=== PATIENT | female | born 1935 | race African-American/Black ===

== ENCOUNTER 2017-12-31 19:42 | Emergency (ER) | payer MEDICARE, OTHER ==
[2017-12-31] MEDS ORDERED: ONDANSETRON PF 4 MG/2 ML VIAL. IV (20:15)
[2017-12-31] MEDS ORDERED: MORPHINE SULFATE 4 MG/ML DISP.SYRIN. IV (20:15)
[2017-12-31] MEDS ORDERED: ACETAMINOPHEN 325 MG TABLET. PO (20:15)
[2017-12-31] MEDS: IOHEXOL 300 MG/ML 100ML VIAL. IV (20:30)
[2017-12-31] MEDS: IPRATRPIUM/ALBUTEROL 0.5/2.5MG 3 ML NEBU. NEB (20:55)
[2017-12-31 20:59] LABS: BILIRUBIN,URINE NEGATIVE (NEG); CLARITY,URINE CLEAR; COLOR,URINE YELLOW; GLUCOSE,URINE NEGATIVE (NEG); NITRITE,URINE NEGATIVE (NEG); PROTEIN,URINE 30 mg/dL (NEG-TRACE)
[2017-12-31 21:15] LABS: SQUAMOUS EPITHELIAL CELL,UR FEW /LPF
[2017-12-31 21:16] LABS: BACTERIA,URINE 0 /HPF (0-FEW); RBC,URINE 0 /HPF (0-2); WBC,URINE 0 /HPF (0-4)
[2017-12-31] MEDS: IV NORMAL SALINE 1000ML BAG 1,000 ML IV (21:42)
[2017-12-31 21:50] LABS: BASO # 0.1 x10^3/uL (0.0-0.2); BASO % 1 % (0-3); EOS % 0 % (0-3); HEMATOCRIT 41.7 % (36.0-47.0); LYMPH # 1.3 x10^3/uL (1.0-4.8); LYMPH % 9 % (24-48); MEAN CORPUSCULAR HEMOGLOBIN 32 pg (25-35); MEAN CORPUSCULAR HGB CONC 34 g/dL (31-37); MEAN CORPUSCULAR VOLUME 94 fL (79-100); MONO # 0.4 x10^3/uL (0.0-1.1); MONO % 3 % (0-9); NEUT # 11.9 x10^3uL (1.8-7.7); NEUT % 87 % (31-73); PLATELET COUNT 320 x10^3/uL (140-400); RED BLOOD COUNT 4.43 x10^6/uL (3.50-5.40); RED CELL DISTRIBUTION WIDTH 14.6 % (11.5-14.5); WHITE BLOOD COUNT 13.7 x10^3/uL (4.0-11.0)
[2017-12-31 21:51] LABS: ADD MAN DIFF? YES
[2017-12-31 22:00] LABS: ANION GAP 13 (6-14); BLOOD UREA NITROGEN 25 mg/dL (7-20); BUN/CREATININE RATIO 18 (6-20); CALCIUM 9.7 mg/dL (8.5-10.1); CARBON DIOXIDE 26 mmol/L (21-32); CHLORIDE 101 mmol/L (98-107); CREATININE 1.4 mg/dL (0.6-1.0); GFR 43.3; GLUCOSE 139 mg/dL (70-99); POTASSIUM 3.6 mmol/L (3.5-5.1); SODIUM 140 mmol/L (136-145)
[2017-12-31 22:06] LABS: ALBUMIN 3.8 g/dL (3.4-5.0); ALK PHOS 113 U/L (46-116); ALT (SGPT) 19 U/L (14-59); AST (SGOT) 21 U/L (15-37); LIPASE 32 U/L (73-393); TOTAL BILIRUBIN 0.4 mg/dL (0.2-1.0); TOTAL PROTEIN 7.8 g/dL (6.4-8.2)
[2017-12-31 22:09] LABS: LACTIC ACID 1.2 mmol/L (0.4-2.0)
[2017-12-31 22:35] LABS: % LYMPHS 12 % (24-48); % MONOS 3 % (0-10); % SEGS 85 % (35-66); PLT ESTIMATE ADEQUATE (ADEQUATE)
[2017-12-31] MEDS: LABETALOL 20 MG/4 ML DISP.SYRIN. IVP (22:54)
== END 2018-01-01 01:27 | disposition home or self-care (01) ==
LOC: ER 01-01 01:27
DX: R10.32 Left lower quadrant pain (principal); R19.7 Diarrhea, unspecified; I10 Essential (primary) hypertension; I73.9 Peripheral vascular disease, unspecified; Z86.2 Personal history of diseases of the blood and blood-forming organs and certain disorders involving the immune mechanism; Z88.2 Allergy status to sulfonamides
CPT/HCPCS: 36415; 74177; 76830; 76856; 80053; 81001; 83605; 83690; 85007; 85025; 94640; 96361; 96374; 99285-25; J3490; J7030; J7620; Q9967

== ENCOUNTER 2019-02-22 20:00 | Inpatient (IN) | payer MEDICARE, OTHER ==
[~2019-02-22] VITALS: Ht 160 cm; Wt 83.1 kg
[~2019-02-22 20:00] MED LIST: ACET500T68 PO; AMLO10TA8 PO; ASPI-482 PO; AZIT250T6 PO; CHOL5000 PO; FELO10TA PO; HYDR-2145 PO; HYDR-3164 PO; LOSA100T2 PO; MOME17SP NS; OMEG1CAP6 PO; POLY17PO29 PO; PRAV40TA2 PO; SOLI5TAB2 PO; TEMA30CA PO; TRAM50TA PO; fiber
[2019-02-22] MEDS ORDERED: ACETAMINOPHEN 325 MG TABLET. PO ONE (20:45)
[2019-02-22] MEDS ORDERED: IV NORMAL SALINE 1000ML BAG 1,000 ML IV ONE ×2 (20:45→23:30)
[2019-02-22] MEDS ORDERED: PIP/TAZO PER PHARMACY MC PRN (20:45)
--- NOTE | 2019-02-22 20:48 | PHYS DOC ---
Past Medical History Past Medical History: Arthritis, Hypertension, Other Additional Past Medical Histor: PVD,BLOOD CLOTS,BOWEL OBSTRUCTION Past Surgical History: Other Additional Past Surgical Histo: FEM POP, LT CARTIOD, ARTERIAL VASC. SURGERY Alcohol Use: None Drug Use: None Adult General Chief Complaint Chief Complaint: GENERALIZED BODY ACHES HPI HPI Patient is a 84 year old F who presents with shakes. She states that they started around 3pm this afternoon. She denies any diarrhea or vomiting but does report nausea. She denies any abdominal pain, chest pain, shortness of breath, or changes to urination. DENIES ANY CHEST PAIN. Per ambulance the temperature is 102.[address] to the emergency room. Family said they were shaking chills look like she was having a fever. Review of Systems Review of Systems Constitutional: Reports fever or chills [] Eyes: Denies change in visual acuity, redness, or eye pain [] HENT: Denies nasal congestion or sore throat [] Respiratory: Denies cough or shortness of breath [] Cardiovascular: No additional information not addressed in HPI [] GI: Reports abdominal pain, nausea, vomiting, bloody stools or diarrhea [] : Denies dysuria or hematuria [] Musculoskeletal: Denies back pain or joint pain [] Integument: Denies rash or skin lesions [] Neurologic: Denies headache, focal weakness or sensory changes [] Endocrine: Denies polyuria or polydipsia [] All other systems were reviewed and found to be within normal limits, except as documented in this note. Current Medications Current Medications Current Medications Medications (Trade) Dose Ordered Sig/[facility] Start Time Stop Time Status Last Admin Dose Admin Acetaminophen (Tylenol) 650 mg 1X ONCE 02/22/19 20:45 02/22/19 20:52 DC 02/22/19 21:22 650 MG Info (CONTRAST GIVEN -- Rx MONITORING) 1 each PRN DAILY PRN 02/23/19 00:15 02/25/19 00:14 Iohexol (Omnipaque 300 Mg/ml) 60 ml 1X ONCE 02/23/19 00:15 02/23/19 00:16 DC 02/23/19 00:02 60 ML Piperacillin Sod/ Tazobactam Sod (Zosyn Per Pharmacy) 1 each PRN DAILY PRN 02/22/19 20:45 Piperacillin Sod/ Tazobactam Sod 3.375 gm/Sodium Chloride 50 ml @ 100 mls/hr ONCE ONCE 02/22/19 21:00 02/22/19 21:29 DC 02/22/19 21:23 100 MLS/HR Sodium Chloride 1,000 ml @ 75 mls/hr [id number] 02/22/19 23:30 02/23/19 23:29 02/23/19 03:03 75 MLS/HR Allergies Allergies Allergies Coded Allergies Type Severity Reaction Last Updated Verified Sulfa (Sulfonamide Antibiotics) Allergy Severe TONGUE SWELLING 04/07/14 Yes Physical Exam Physical Exam Constitutional: Well developed, well nourished, mildly ill-appearing HENT: Normocephalic, atraumatic, bilateral external ears normal, oropharynx dry no oral exudates, nose normal. [] Eyes: PERRLA, EOMI, conjunctiva normal, no discharge. [] Neck: Normal range of motion, no tenderness, supple, no stridor. [] Cardiovascular:Heart rate regular rhythm, no murmur [] Lungs & Thorax: Bilateral breath sounds clear to auscultation [] Abdomen: Bowel sounds normal, soft, no tenderness, no masses, no pulsatile masses. [] Skin: Warm, dry, no erythema, no rash. [] Back: No tenderness, no CVA tenderness. [] Extremities: No tenderness, no cyanosis, no clubbing, ROM intact, no edema. [] Neurologic: Alert and oriented X 3, normal motor function, normal sensory function, no focal deficits noted. [] Psychologic: Affect normal, judgement normal, mood normal. [] Current Patient Data Vital Signs Vital Signs Date Time Temp Pulse Resp B/P (MAP) Pulse Ox O2 Delivery O2 Flow Rate FiO2 02/22/19 23:11 64 16 94/40 (58) 99 Room Air 02/22/19 20:00 99.5 99.5 Lab Values Laboratory Tests Test 02/22/19 21:10 02/22/19 22:00 White Blood Count 13.0 x10^3/uL (4.0-11.0) H Red Blood Count 3.96 x10^6/uL (3.50-5.40) Hemoglobin 12.3 g/dL (12.0-15.5) Hematocrit 37.6 % (36.0-47.0) Mean Corpuscular Volume 95 fL (79-100) Mean Corpuscular Hemoglobin 31 pg (25-35) Mean Corpuscular Hemoglobin Concent 33 g/dL (31-37) Red Cell Distribution Width 13.8 % (11.5-14.5) Platelet Count 294 x10^3/uL (140-400) Neutrophils (%) (Auto) 89 % (31-73) H Lymphocytes (%) (Auto) 4 % (24-48) L Monocytes (%) (Auto) 6 % (0-9) Eosinophils (%) (Auto) 0 % (0-3) Basophils (%) (Auto) 0 % (0-3) Neutrophils # (Auto) 11.6 x10^3uL (1.8-7.7) H Lymphocytes # (Auto) 0.6 x10^3/uL (1.0-4.8) L Monocytes # (Auto) 0.8 x10^3/uL (0.0-1.1) Eosinophils # (Auto) 0.0 x10^3/uL (0.0-0.7) Basophils # (Auto) 0.0 x10^3/uL (0.0-0.2) Segmented Neutrophils % 88 % (35-66) H Band Neutrophils % 3 % (0-9) Lymphocytes % 5 % (24-48) L Monocytes % 4 % (0-10) Platelet Estimate Adequate (ADEQUATE) Prothrombin Time 12.6 SEC (11.7-14.0) Prothrombin Time INR 1.0 (0.8-1.1) Sodium Level 141 mmol/L (136-145) Potassium Level 4.0 mmol/L (3.5-5.1) Chloride Level 102 mmol/L (98-107) Carbon Dioxide Level 29 mmol/L (21-32) Anion Gap 10 (6-14) Blood Urea Nitrogen 27 mg/dL (7-20) H Creatinine 1.3 mg/dL (0.6-1.0) H Estimated GFR (Cockcroft-Gault) 47.0 BUN/Creatinine Ratio 21 (6-20) H Glucose Level 138 mg/dL (70-99) H Lactic Acid Level 1.8 mmol/L (0.4-2.0) Calcium Level 10.1 mg/dL (8.5-10.1) Total Bilirubin 0.4 mg/dL (0.2-1.0) Aspartate Amino Transferase (AST) 17 U/L (15-37) Alanine Aminotransferase (ALT) 17 U/L (14-59) Alkaline Phosphatase 115 U/L (46-116) Troponin I Quantitative 0.084 ng/mL (0.000-0.055) DP-Cfe-I-Type Natriuretic Peptide 2147 pg/mL (0-449) H Total Protein 7.0 g/dL (6.4-8.2) Albumin 3.7 g/dL (3.4-5.0) Albumin/Globulin Ratio 1.1 (1.0-1.7) Lipase 39 U/L (73-393) L Procalcitonin 2.96 ng/mL (0.00-0.10) H Urine Collection Type U cath Urine Color Yellow Urine Clarity Clear Urine pH 5.5 Urine Specific [place] 1.010 Urine Protein 30 mg/dL (NEG-TRACE) Urine Glucose (UA) Negative mg/dL (NEG) Urine Ketones (Stick) Negative mg/dL (NEG) Urine Blood Small (NEG) Urine Nitrite Negative (NEG) Urine Bilirubin Negative (NEG) Urine Urobilinogen Dipstick 0.2 mg/dL (0.2 mg/dL) Urine Leukocyte Esterase Small (NEG) Urine RBC 3-5 /HPF (0-2) Urine WBC 11-20 /HPF (0-4) Urine Squamous Epithelial Cells Few /LPF Urine Bacteria Many /HPF (0-FEW) Laboratory Tests 02/22/19 21:10 Laboratory Tests 02/22/19 21:10 EKG EKG []EKG does show a normal sinus rhythm there is a right bundle branch block pattern overall similar to EKG from March or 2018 there was some sort of borderline ST elevation in lead 3 and aVF however it was less than 1 mm did not meet criteria for STEMI. Radiology/Procedures Radiology/Procedures [] Impressions: CT ABD PELV W/ IV CONTRST ONLY CT SCAN OF THE ABDOMEN AND PELVIS WITH IV CONTRAST. History: Fever and abdominal pain Comparison:None. Procedure: Contiguous axial images of the abdomen and pelvis were performed after the administration of 75 cc of Isovue 370 IV contrast and oral contrast. CT Abdomen with contrast: Findings: There is a 2.9 cm suprarenal abdominal aortic aneurysm with calcification the wall and there is an aortobiiliac bypass which is patent. The colon is distended with air and stool. Liver: Unremarkable Spleen: Unremarkable Pancreas: Unremarkable Adrenal Glands: Unremarkable Kidneys: Unremarkable There is no mass or lymphadenopathy. There is no free air. There is no free fluid. CT Pelvis with Contrast: Findings: The urinary bladder appears normal. There is no free fluid. There is no lymphadenopathy. There are exophytic fibroids arising posteriorly from the uterus. The appendix is normal. Impression: Distention the colon with air and stool suggests a mild colonic ileus. RS Compliance Statement: One or more of the following individualized dose reduction techniques were utilized for this examination: 1. Automated exposure control 2. Adjustment of the mA and/or kV according to patient size 3. Use of iterative reconstruction technique Electronically signed by: Abel Hardin III, MD (02/23/2019 12:22 AM) [place] [id number] DICTATED and SIGNED BY: ABEL HARDIN III, MD DATE: 02/23/19 0022. EXAM: Chest, single view. HISTORY: Fever. COMPARISON: 02/01/2018. FINDINGS: A frontal view of the chest is obtained. There is no infiltrate, pleural effusion or pneumothorax. The heart is normal in size. IMPRESSION: No acute pulmonary finding. Electronically signed by: Baylee Church MD (02/22/2019 9:34 PM) [facility] DICTATED and SIGNED BY: BAYLEE CHURCH MD DATE: 02/22/192133 Course & Med Decision Making Course & Med Decision Making Pertinent Labs and Imaging studies reviewed. (See chart for details) 84 show female was presenting with chief complaint of shaking chills temp 102.5 RIGORS BY HISTORY U/A SHOWS UTI. Patient some mild nausea no abdominal tenderness we did a CT scan did show possibly a mild ileus but otherwise no acute surgical pathology. There were some borderline EKG changes and a small bump in the troponin but no chest pain and fever of 102 by the paramedics elevated pro calcitonin makes sepsis the much more likely etiology of her clinical picture Admitted to the service of Dr. valadez discussed case at 11:50 PM prior to the below change in clinical situation. PT INITIALLY BP WAS OKAY 133 RANGE. It did drop down into the 70s we gave 2 L fluid bolus total 30 mL per kilo was ordered it was still low after nearly 2 L so I opted to place a central line. After the central line was placed blood pressure actually did come back up I ordered vasopressors as needed and we transfer the patient to the intensive care unit. Patient really did not want a She was scared by that it did not appear that she would be compliant with that I was worried about the risks associated with that family said that she had tolerated a groin line in the past. Indication: Vascular access Consent: The patient AND FAMILY provided consent for this procedure. Procedure: The patient was positioned appropriately and the skin over the [RIGHT FEMORAL VEIN] was prepped and draped in a sterile fashion. Local anesthesia was used. Ultrasound guidance utilized. A large bore needle was used to identify the vein. A guide wire was then inserted into the vein through the needle. A triple lumen catheter was then inserted into the vessel over the guide wire using the Seldinger technique. All ports showed good, free flowing blood return and were flushed with saline solution. The catheter was then securely fastened to the skin with sutures and covered with a sterile dressing. The patient tolerated the procedure well. Complications: none. Critical care time was 40 minutes exclusive of procedures. Dragon Disclaimer Dragon Disclaimer This electronic medical record was generated, in whole or in part, using a voice recognition dictation system. Departure Departure Impression: Primary Impression: Septic shock Disposition: ADMITTED INPATIENT Admitting Physician: Mary Valadez Condition: CRITICAL Referrals: JEN COOK MD (PCP) Date and Time of Reassessment Date: February 23, 2019 Time: 01:00 Fluid Challenge Is the fluid challenge complet: Yes Blood Culture TIme: 20:49 Time Antibiotics Given: 21:00 Vital Signs Vital Signs: Vital Signs Date Time Temp Pulse Resp B/P (MAP) Pulse Ox O2 Delivery O2 Flow Rate FiO2 02/22/19 23:11 64 16 94/40 (58) 99 Room Air 02/22/19 20:00 99.5 99.5 Temperature Source: Oral Respirations Respiratory Effort: Normal, Non-Labored Respiratory Pattern: Normal Cardiovascular Pulse Rhythm: Regular Heart: Nml rate, reg. rhythm Lung Sounds Breath Sounds: Clear Capillary Refil Capillary Refill: Rt Hand < 3 seconds Peripheral Pulse Pulse Location: Radial Pulse Strength: Weak (1+) Pulse Assessment Method: Palpation Integumentary Skin: Warm, Dry Skin Moisture: Dry (I reevaluated the patient she was near the end of her fluid bolus her blood pressure did drop this was a change in condition I ordered another 500 bolus and placed a central line with when necessary vasopressors patient transferred to the intensive care unit) RANGEL HARRISON MD February 22, 2019 20:48
[2019-02-22] MEDS ORDERED: PIPERACILLIN/TAZOBACTAM 3.375 GM in IV NORMAL SALINE 50ML 50 ML IV ONE (21:00)
[2019-02-22 21:20] LABS: BASO % 0 % (0-3); EOS % 0 % (0-3); HEMATOCRIT 37.6 % (36.0-47.0); HEMOGLOBIN 12.3 g/dL (12.0-15.5); LYMPH # 0.6 x10^3/uL (1.0-4.8); LYMPH % 4 % (24-48); MEAN CORPUSCULAR HEMOGLOBIN 31 pg (25-35); MEAN CORPUSCULAR HGB CONC 33 g/dL (31-37); MEAN CORPUSCULAR VOLUME 95 fL (79-100); MONO # 0.8 x10^3/uL (0.0-1.1); MONO % 6 % (0-9); NEUT # 11.6 x10^3uL (1.8-7.7); NEUT % 89 % (31-73); PLATELET COUNT 294 x10^3/uL (140-400); RED BLOOD COUNT 3.96 x10^6/uL (3.50-5.40); RED CELL DISTRIBUTION WIDTH 13.8 % (11.5-14.5)
[2019-02-22 21:29] LABS: PROTHROMBIN TIME PATIENT 12.6 SEC (11.7-14.0)
[2019-02-22 21:33] LABS: CALCIUM 10.1 mg/dL (8.5-10.1); CREATININE 1.3 mg/dL (0.6-1.0)
--- NOTE | 2019-02-22 21:37 | RAD ---
EXAM: Chest, single view. HISTORY: Fever. COMPARISON: 02/01/2018. FINDINGS: A frontal view of the chest is obtained. There is no infiltrate, pleural effusion or pneumothorax. The heart is normal in size. IMPRESSION: No acute pulmonary finding. Electronically signed by: Baylee Mccain MD (02/22/2019 9:34 PM) [facility]
[2019-02-22 21:48] LABS: ALBUMIN 3.7 g/dL (3.4-5.0); ALBUMIN/GLOBULIN RATIO 1.1 (1.0-1.7); TOTAL BILIRUBIN 0.4 mg/dL (0.2-1.0)
[2019-02-22 22:05] LABS: BILIRUBIN,URINE NEGATIVE (NEG); CLARITY,URINE CLEAR; COLOR,URINE YELLOW; NITRITE,URINE NEGATIVE (NEG); PH,URINE 5.5; PROTEIN,URINE 30 mg/dL (NEG-TRACE); UROBILINOGEN,URINE 0.2 mg/dL (0.2 mg/dL)
[2019-02-22 22:15] LABS: BACTERIA,URINE MANY /HPF (0-FEW); SQUAMOUS EPITHELIAL CELL,UR FEW /LPF
[2019-02-22 22:20] LABS: % BANDS 3 % (0-9); % LYMPHS 5 % (24-48); % MONOS 4 % (0-10); % SEGS 88 % (35-66); PLT ESTIMATE ADEQUATE (ADEQUATE)
[2019-02-23] VITALS (35 sets, daily range): BP systolic 53–154; BP diastolic 36–96
[2019-02-23] MEDS ORDERED: IOHEXOL 300 MG/ML 100ML VIAL. IV ONE (00:15)
[2019-02-23] MEDS ORDERED: CONTRAST GIVEN. MC PRN (00:15)
--- NOTE | 2019-02-23 00:25 | RAD ---
CT SCAN OF THE ABDOMEN AND PELVIS WITH IV CONTRAST. History: Fever and abdominal pain Comparison:None. Procedure: Contiguous axial images of the abdomen and pelvis were performed after the administration of 75 cc of Isovue 370 IV contrast and oral contrast. CT Abdomen with contrast: Findings: There is a 2.9 cm suprarenal abdominal aortic aneurysm with calcification the wall and there is an aortobiiliac bypass which is patent. The colon is distended with air and stool. Liver: Unremarkable Spleen: Unremarkable Pancreas: Unremarkable Adrenal Glands: Unremarkable Kidneys: Unremarkable There is no mass or lymphadenopathy. There is no free air. There is no free fluid. CT Pelvis with Contrast: Findings: The urinary bladder appears normal. There is no free fluid. There is no lymphadenopathy. There are exophytic fibroids arising posteriorly from the uterus. The appendix is normal. Impression: Distention the colon with air and stool suggests a mild colonic ileus. RS Compliance Statement: One or more of the following individualized dose reduction techniques were utilized for this examination: 1. Automated exposure control 2. Adjustment of the mA and/or kV according to patient size 3. Use of iterative reconstruction technique Electronically signed by: Qasim Hollins III, MD (02/23/2019 12:22 AM) [facility]
[2019-02-23] MEDS ORDERED: IV NORMAL SALINE 1000ML BAG 1,000 ML IV ONE (01:00)
[2019-02-23] MEDS ORDERED: NOREPINEPHRIN 8MG/250ML PREMIX 250 ML IV ONE (02:00)
[2019-02-23] MEDS ORDERED: IV NORMAL SALINE 500ML BAG 500 ML IV ONE ×3 (02:00→07:45)
--- NOTE | 2019-02-23 02:30 | NUR ---
pt admitted to room 110 from ED at this time. VSS on 2L/NC, afebrile. daughter at bedside, able to help get admission requirements completed. daughter and pt oriented to room, call light, unit routines and plan of care. both verbalize understanding. call light in reach, will continue to closely monitor.
[2019-02-23] MEDS: IV NORMAL SALINE 1000ML BAG 1,000 ML IV SCH ×2 (03:03→07:38)
[2019-02-23] MEDS: ONDANSETRON PF 4 MG/2 ML VIAL. IV PRN (03:17)
[2019-02-23] MEDS ORDERED: IOHEXOL 300 MG/ML 100ML VIAL. ONE (04:24)
[2019-02-23 05:43] LABS: BASO # 0.1 x10^3/uL (0.0-0.2); BASO % 1 % (0-3); EOS % 0 % (0-3); HEMATOCRIT 31.6 % (36.0-47.0); HEMOGLOBIN 10.3 g/dL (12.0-15.5); LYMPH # 1.9 x10^3/uL (1.0-4.8); LYMPH % 16 % (24-48); MEAN CORPUSCULAR HEMOGLOBIN 32 pg (25-35); MEAN CORPUSCULAR HGB CONC 33 g/dL (31-37); MEAN CORPUSCULAR VOLUME 98 fL (79-100); MONO # 1.2 x10^3/uL (0.0-1.1); MONO % 10 % (0-9); NEUT # 9.1 x10^3uL (1.8-7.7); NEUT % 74 % (31-73); PLATELET COUNT 221 x10^3/uL (140-400); RED BLOOD COUNT 3.23 x10^6/uL (3.50-5.40); RED CELL DISTRIBUTION WIDTH 14.3 % (11.5-14.5); WHITE BLOOD COUNT 12.3 x10^3/uL (4.0-11.0)
[2019-02-23] MEDS: PIPERACILLIN/TAZOBACTAM 2.25 GM in IV NORMAL SALINE 50ML 50 ML IV SCH ×2 (06:11→12:26)
[2019-02-23] MEDS: NOREPINEPHRIN 8MG/250ML PREMIX 250 ML IV PRN ×2 (07:38→18:05)
--- NOTE | 2019-02-23 08:18 | PDOC1 ---
History and Physical Date of Admission Date of Admission DATE: 02/23/19 TIME: 08:10 Identification/Chief Complaint Chief Complaint Shaking History of Present Illness History of Present Illness Ms Soares is an 83 year old female w/ PMHx HTN, HLD, COPD, PAD s/p fem pop bypa ss, SBO, ?DVT, uterine fibroids, TIA with mild cognitive impairment, OA, diverticulosis, AAA who presents per EMS from home with "the shakes" and abdominal pain. She states that they started around 3pm this afternoon. Patient complains of epigastric pain that she rates a 5 out of 10 and does radiate to her back and LLQ, though has improved by my eval in ICU She has had 2 days witho ut BM, ate a salad and took Pepto-Bismol and vomited a short while after this. She did have dark BM that were loose yesterday evening as well. She denies any chronic GI issues other than occasional constipation. Denies hematemesis, hematochezia, and melena. Has lost weight since her , she thinks due to eating less. Denies GERD and dysphagia. Takes ASA and some sort of Rx pain med (?Tramadol) at home. Does not recall previous EGD or colonoscopy, also denies GB, liver, and pancreas history. H/o SBO. Had WBC 13K and HR 91 on initial evaluation. Became hypotensive in ED, had right groin CVC placed and had multiple fluid bolus. Started on empiric zosyn. Procalcitonin elevated > 2. Troponin also elevated at 3 She denies any diarrhea or vomiting but does report nausea. She denies shortness of breath, or changes to urination. DENIES ANY CHEST PAIN. Per EMS has fever 102.5. Family said they were shaking chills look like she was having a fever. She also c/o headache on further ROS. Past Medical History Cardiovascular: HTN, Hyperlipidemia, Other Pulmonary: COPD CENTRAL NERVOUS SYSTEM: TIA Musculoskeletal: Osteoarthritis Renal/: Urinary Incontinence Past Surgical History Past Surgical History: Other Family History Family History: Heart Disease Social History ALCOHOL: none Drugs: None Current Problem List Problem List Problems Medical Problems: (1) Septic shock Status: Acute Current Medications Current Medications Current Medications Sodium Chloride 1,000 ml @ 1,000 mls/hr 1X ONCE IV Last administered on 02/22/19at 21:23; Start 02/22/19 at 20:45; Stop 02/22/19 at 21:44; Status DC Acetaminophen (Tylenol) 650 mg 1X ONCE PO Last administered on 02/22/19at 21:22; Start 02/22/19 at 20:45; Stop 02/22/19 at 20:52; Status DC Piperacillin Sod/ Tazobactam Sod (Zosyn Per Pharmacy) 1 each PRN DAILY PRN MC SEE COMMENTS; Start 02/22/19 at 20:45 Piperacillin Sod/ Tazobactam Sod 3.375 gm/Sodium Chloride 50 ml @ 100 mls/hr ONCE ONCE IV Last administered on 02/22/19at 21:23; Start 02/22/19 at 21:00; Stop 02/22/19 at 21:29; Status DC Sodium Chloride 1,000 ml @ 1,000 mls/hr 1X ONCE IV Last administered on 02/22/19at 23:44; Start 02/22/19 at 23:30; Stop 02/23/19 at 00:29; Status DC Sodium Chloride 1,000 ml @ 75 mls/hr [id number] IV Last administered on 02/23/19at 07:38; Start 02/22/19 at 23:30; Stop 02/23/19 at 23:29 Iohexol (Omnipaque 300 Mg/ml) 60 ml 1X ONCE IV Last administered on 02/23/19at 00:02; Start 02/23/19 at 00:15; Stop 02/23/19 at 00:16; Status DC Info (CONTRAST GIVEN -- Rx MONITORING) 1 each PRN DAILY PRN MC SEE COMMENTS; Start 02/23/19 at 00:15; Stop 02/25/19 at 00:14 Piperacillin Sod/ Tazobactam Sod 2.25 gm/Sodium Chloride 50 ml @ 100 mls/hr Q6HRS IV Last administered on 02/23/19at 06:11; Start 02/23/19 at 06:00 Sodium Chloride 1,000 ml @ 1,000 mls/hr 1X ONCE IV ; Start 02/23/19 at 01:00; Stop 02/23/19 at 01:45; Status DC Sodium Chloride 500 ml @ 500 mls/hr 1X ONCE IV Last administered on 02/23/19at 02:07; Start 02/23/19 at 02:00; Stop 02/23/19 at 02:59; Status DC Norepinephrine Bitartrate 250 ml @ 0 mls/hr 1X ONCE IV ; Start 02/23/19 at 02:00; Stop 02/23/19 at 02:01; Status DC Sodium Chloride 500 ml @ 500 mls/hr 1X ONCE IV Last administered on 02/23/19at 06:10; Start 02/23/19 at 02:00; Stop 02/23/19 at 02:59; Status DC Norepinephrine Bitartrate 250 ml @ 1.875 mls/ hr CONT PRN IV SEE I/O RECORD Last administered on 02/23/19at 07:38; Start 02/23/19 at 03:15 Ondansetron HCl (Zofran) 4 mg PRN Q6HRS PRN IV NAUSEA/VOMITING Last administered on 02/23/19at 03:17; Start 02/23/19 at 03:15 Iohexol (Omnipaque 300 Mg/ml) 100 ml STK-MED ONCE .ROUTE ; Start 02/23/19 at 04:24; Stop 02/23/19 at 04:25; Status DC Sodium Chloride 500 ml @ 500 mls/hr 1X ONCE IV ; Start 02/23/19 at 07:45; Stop 02/23/19 at 08:44 Active Scripts Active Reported Amlodipine Besylate 10 Mg Tablet 10 Mg PO DAILY Tramadol Hcl 50 Mg Tablet 50 Mg PO Q4H PRN Fish Oil 1,000 Mg Capsule ([place]-3 Fatty Acids/Fish Oil) 1 Each Capsule 1 Each PO Vitamin D3 (Cholecalciferol (Vitamin D3)) 5,000 Unit Capsule 5,000 Unit PO Acetaminophen 500 Mg Tablet 500 Mg PO Aspir 81 (Aspirin) 81 Mg Tablet.dr 81 Mg PO Hydrochlorothiazide Tablet (Hydrochlorothiazide) 25 Mg Tablet 25 Mg PO DAILY Pravastatin Sodium 40 Mg Tablet 40 Mg PO DAILY Miralax (Polyethylene Glycol 3350) 17 Gm Powd.pack 1 Pkt PO DAILY [fiber] Temazepam 30 Mg Capsule 30 Mg PO HS PRN Cozaar (Losartan Potassium) 100 Mg Tablet 100 Mg PO DAILY Allergies Allergies: Coded Allergies: Sulfa (Sulfonamide Antibiotics) (Verified Allergy, Severe, TONGUE SWELLING, 04/07/14) ROS General: YES: Chills, Fatigue, Malaise, Appetite PSYCHOLOGICAL ROS: No: Anxiety, Behavioral Disorder, Concentration difficultie, Decreased libido, Depression, Disorientation, Hallucinations, Hostility, Irritablity, Memory difficulties, Mood Swings, Obsessive thoughts, Physical abuse, Sexual abuse, Sleep disturbances, Suicidal ideation, Other Eyes: Yes Uses glasses; No Blurry vision, No Decreased vision, No Double vision, No Dry eyes, No Excessive tearing, No Eye Pain, No Itchy Eyes, No Loss of vision, No Photophobia, No Scotomata, No Uses contacts, No Other HEENT: YES: Heacaches; No: Visual Changes, Hearing change, Nasal congestion, Nasal discharge, Oral lesions, Sinus pain, Sore Throat, Epistaxis, Sneezing, Snoring, Tinnitus, Vertigo, Vocal changes, Other ALLERGY AND IMMUNOLOGY: No: Hives, Insect Bite Sensitivity, Itchy/Watery Eyes, Nasal Congestion, Post Nasal Drip, Seasonal Allergies, Other Hematological and Lymphatic: No: Bleeding Problems, Blood Clots, Blood Trans fusions, Brusing, Night Sweats, Pallor, Swollen Lymph Nodes, Other ENDOCRINE: No: Breast Changes, Galactorrhea, Hair Pattern Changes, Hot Flashes, Malaise/lethargy, Mood Swings, Palpitations, Polydipsia/polyuria, Skin Changes, Temperature Intolerance, Unexpected Weight Changes, Other Breast: No New/Changing Breast Lumps, No Nipple changes, No Nipple discharge, No Other Respiratory: YES: Shortness of breath; No: Cough, Hemoptysis, Orthopnea, Pleuritic Pain, SOB with excertion, Sputum Changes, Stridor, Tachypnea, Wheezing, Other Cardiovascular: No Chest Pain, No Palpitations, No Orthopnea, No Paroxysmal Noc. Dyspnea, No Edema, No Lt Headedness, No Other Gastrointestinal: Yes Nausea, Yes Vomiting, Yes Abdominal Pain, Yes Constipation; No Diarrhea, No Melena, No Hematochezia, No Other Genitourinary: No Dysuria, No Frequency, No Incontinence, No Hematuria, No Retention, No Discharge, No Urgency, No Pain, No Flank Pain, No Other, No , No , No , No , No , No , No Musculoskeletal: No Gait Disturbance, No Joint Pain, No Joint Stiffness, No Joint Swelling, No Muscle Pain, No Muscular Weakness, No Pain In:, No Swelling In:, No Other Neurological: No Behavorial Changes, No Bowel/Bladder ControlChng, No Confusion, No Dizziness, No Gait Disturbance, No Headaches, No Impaired Coord/balance, No Memory Loss, No Numbness/Tingling, No Seizures, No Speech Problems, No Tremors, No Visual Changes, No Weakness, No Other Skin: No Dry Skin, No Eczema, No Hair Changes, No Lumps, No Mole Changes, No Mottling, No Nail Changes, No Pruritus, No Rash, No Skin Lesion Changes, No Other, No Acne Physical Exam General: Alert, Cooperative, mild distress HEENT: Atraumatic, PERRLA, EOMI, Mucous membr. moist/pink, Other (Periorbital swelling) Lungs: Clear to auscultation, Normal air movement Heart: S1S2, RRR, no gallops Abdomen: Normal bowel sounds, Soft, No tenderness, No hepatosplenomegaly, No masses Rectal Exam: not examined Extremities: No clubbing, No cyanosis, No edema, No tenderness/swelling, Other (Decreased peripheral pulses in RUE, LUE and LLE, good pulses RLE) Skin: No rashes, No breakdown, No significant lesion Neuro: Normal gait, Normal speech, Strength at 5/5 X4 ext, Normal tone, Sensation intact, Cranial nerves 3-12 NL, Reflexes 2+ Psych/Mental Status: Mood NL Vitals Vitals Vital Signs Date Time Temp Pulse Resp B/P (MAP) Pulse Ox O2 Delivery O2 Flow Rate FiO2 02/23/19 06:00 72 16 97/50 (66) 100 Nasal Cannula 2.0 02/23/19 02:30 98.1 98.1 Labs Labs Laboratory Tests Test 02/22/19 21:10 02/22/19 22:00 02/23/19 05:00 02/23/19 05:30 White Blood Count 13.0 x10^3/uL (4.0-11.0) 12.3 x10^3/uL (4.0-11.0) Red Blood Count 3.96 x10^6/uL (3.50-5.40) 3.23 x10^6/uL (3.50-5.40) Hemoglobin 12.3 g/dL (12.0-15.5) 10.3 g/dL (12.0-15.5) Hematocrit 37.6 % (36.0-47.0) 31.6 % (36.0-47.0) Mean Corpuscular Volume 95 fL (79-100) 98 fL (79-100) Mean Corpuscular Hemoglobin 31 pg (25-35) 32 pg (25-35) Mean Corpuscular Hemoglobin Concent 33 g/dL (31-37) 33 g/dL (31-37) Red Cell Distribution Width 13.8 % (11.5-14.5) 14.3 % (11.5-14.5) Platelet Count 294 x10^3/uL (140-400) 221 x10^3/uL (140-400) Neutrophils (%) (Auto) 89 % (31-73) 74 % (31-73) Lymphocytes (%) (Auto) 4 % (24-48) 16 % (24-48) Monocytes (%) (Auto) 6 % (0-9) 10 % (0-9) Eosinophils (%) (Auto) 0 % (0-3) 0 % (0-3) Basophils (%) (Auto) 0 % (0-3) 1 % (0-3) Neutrophils # (Auto) 11.6 x10^3uL (1.8-7.7) 9.1 x10^3uL (1.8-7.7) Lymphocytes # (Auto) 0.6 x10^3/uL (1.0-4.8) 1.9 x10^3/uL (1.0-4.8) Monocytes # (Auto) 0.8 x10^3/uL (0.0-1.1) 1.2 x10^3/uL (0.0-1.1) Eosinophils # (Auto) 0.0 x10^3/uL (0.0-0.7) 0.0 x10^3/uL (0.0-0.7) Basophils # (Auto) 0.0 x10^3/uL (0.0-0.2) 0.1 x10^3/uL (0.0-0.2) Segmented Neutrophils % 88 % (35-66) Band Neutrophils % 3 % (0-9) Lymphocytes % 5 % (24-48) Monocytes % 4 % (0-10) Platelet Estimate Adequate (ADEQUATE) Prothrombin Time 12.6 SEC (11.7-14.0) Prothromb Time International Ratio 1.0 (0.8-1.1) Sodium Level 141 mmol/L (136-145) Potassium Level 4.0 mmol/L (3.5-5.1) Chloride Level 102 mmol/L (98-107) Carbon Dioxide Level 29 mmol/L (21-32) Anion Gap 10 (6-14) Blood Urea Nitrogen 27 mg/dL (7-20) Creatinine 1.3 mg/dL (0.6-1.0) Estimated GFR (Cockcroft-Gault) 47.0 BUN/Creatinine Ratio 21 (6-20) Glucose Level 138 mg/dL (70-99) Lactic Acid Level 1.8 mmol/L (0.4-2.0) 1.2 mmol/L (0.4-2.0) Calcium Level 10.1 mg/dL (8.5-10.1) Total Bilirubin 0.4 mg/dL (0.2-1.0) Aspartate Amino Transf (AST/SGOT) 17 U/L (15-37) Alanine Aminotransferase (ALT/SGPT) 17 U/L (14-59) Alkaline Phosphatase 115 U/L (46-116) Troponin I Quantitative 0.084 ng/mL (0.000-0.055) 3.186 ng/mL (0.000-0.055) YO-Qhm-I-Type Natriuretic Peptide 2147 pg/mL (0-449) Total Protein 7.0 g/dL (6.4-8.2) Albumin 3.7 g/dL (3.4-5.0) Albumin/Globulin Ratio 1.1 (1.0-1.7) Lipase 39 U/L (73-393) Procalcitonin 2.96 ng/mL (0.00-0.10) Urine Collection Type U cath Urine Color Yellow Urine Clarity Clear Urine pH 5.5 Urine Specific [place] 1.010 Urine Protein 30 mg/dL (NEG-TRACE) Urine Glucose (UA) Negative mg/dL (NEG) Urine Ketones (Stick) Negative mg/dL (NEG) Urine Blood Small (NEG) Urine Nitrite Negative (NEG) Urine Bilirubin Negative (NEG) Urine Urobilinogen Dipstick 0.2 mg/dL (0.2 mg/dL) Urine Leukocyte Esterase Small (NEG) Urine RBC 3-5 /HPF (0-2) Urine WBC 11-20 /HPF (0-4) Urine Squamous Epithelial Cells Few /LPF Urine Bacteria Many /HPF (0-FEW) Laboratory Tests Test 02/22/19 21:10 02/22/19 22:00 02/23/19 05:00 02/23/19 05:30 White Blood Count 13.0 x10^3/uL (4.0-11.0) 12.3 x10^3/uL (4.0-11.0) Red Blood Count 3.96 x10^6/uL (3.50-5.40) 3.23 x10^6/uL (3.50-5.40) Hemoglobin 12.3 g/dL (12.0-15.5) 10.3 g/dL (12.0-15.5) Hematocrit 37.6 % (36.0-47.0) 31.6 % (36.0-47.0) Mean Corpuscular Volume 95 fL (79-100) 98 fL (79-100) Mean Corpuscular Hemoglobin 31 pg (25-35) 32 pg (25-35) Mean Corpuscular Hemoglobin Concent 33 g/dL (31-37) 33 g/dL (31-37) Red Cell Distribution Width 13.8 % (11.5-14.5) 14.3 % (11.5-14.5) Platelet Count 294 x10^3/uL (140-400) 221 x10^3/uL (140-400) Neutrophils (%) (Auto) 89 % (31-73) 74 % (31-73) Lymphocytes (%) (Auto) 4 % (24-48) 16 % (24-48) Monocytes (%) (Auto) 6 % (0-9) 10 % (0-9) Eosinophils (%) (Auto) 0 % (0-3) 0 % (0-3) Basophils (%) (Auto) 0 % (0-3) 1 % (0-3) Neutrophils # (Auto) 11.6 x10^3uL (1.8-7.7) 9.1 x10^3uL (1.8-7.7) Lymphocytes # (Auto) 0.6 x10^3/uL (1.0-4.8) 1.9 x10^3/uL (1.0-4.8) Monocytes # (Auto) 0.8 x10^3/uL (0.0-1.1) 1.2 x10^3/uL (0.0-1.1) Eosinophils # (Auto) 0.0 x10^3/uL (0.0-0.7) 0.0 x10^3/uL (0.0-0.7) Basophils # (Auto) 0.0 x10^3/uL (0.0-0.2) 0.1 x10^3/uL (0.0-0.2) Segmented Neutrophils % 88 % (35-66) Band Neutrophils % 3 % (0-9) Lymphocytes % 5 % (24-48) Monocytes % 4 % (0-10) Platelet Estimate Adequate (ADEQUATE) Prothrombin Time 12.6 SEC (11.7-14.0) Prothromb Time International Ratio 1.0 (0.8-1.1) Sodium Level 141 mmol/L (136-145) Potassium Level 4.0 mmol/L (3.5-5.1) Chloride Level 102 mmol/L (98-107) Carbon Dioxide Level 29 mmol/L (21-32) Anion Gap 10 (6-14) Blood Urea Nitrogen 27 mg/dL (7-20) Creatinine 1.3 mg/dL (0.6-1.0) Estimated GFR (Cockcroft-Gault) 47.0 BUN/Creatinine Ratio 21 (6-20) Glucose Level 138 mg/dL (70-99) Lactic Acid Level 1.8 mmol/L (0.4-2.0) 1.2 mmol/L (0.4-2.0) Calcium Level 10.1 mg/dL (8.5-10.1) Total Bilirubin 0.4 mg/dL (0.2-1.0) Aspartate Amino Transf (AST/SGOT) 17 U/L (15-37) Alanine Aminotransferase (ALT/SGPT) 17 U/L (14-59) Alkaline Phosphatase 115 U/L (46-116) Troponin I Quantitative 0.084 ng/mL (0.000-0.055) 3.186 ng/mL (0.000-0.055) XK-Arq-W-Type Natriuretic Peptide 2147 pg/mL (0-449) Total Protein 7.0 g/dL (6.4-8.2) Albumin 3.7 g/dL (3.4-5.0) Albumin/Globulin Ratio 1.1 (1.0-1.7) Lipase 39 U/L (73-393) Procalcitonin 2.96 ng/mL (0.00-0.10) Urine Collection Type U cath Urine Color Yellow Urine Clarity Clear Urine pH 5.5 Urine Specific [place] 1.010 Urine Protein 30 mg/dL (NEG-TRACE) Urine Glucose (UA) Negative mg/dL (NEG) Urine Ketones (Stick) Negative mg/dL (NEG) Urine Blood Small (NEG) Urine Nitrite Negative (NEG) Urine Bilirubin Negative (NEG) Urine Urobilinogen Dipstick 0.2 mg/dL (0.2 mg/dL) Urine Leukocyte Esterase Small (NEG) Urine RBC 3-5 /HPF (0-2) Urine WBC 11-20 /HPF (0-4) Urine Squamous Epithelial Cells Few /LPF Urine Bacteria Many /HPF (0-FEW) Images Images CXR - No acute pulmonary finding. CT abdomen/pelvis - Distention the colon with air and stool suggests a mild colonic ileus. VTE Prophylaxis Ordered VTE Prophylaxis Devices: No VTE Pharmacological Prophylaxi: Yes Assessment/Plan Assessment/Plan A/P: LLQ pain - abnormal CT segmental acute colitis, infectious, vascular, less like ly IBD simply based on age. Consult GI. Will d/c antibiotics for now as she is improving from sepsis with elevated procalcitonin which is likely not due to an infection which antibiotics will clear Fever and chills - SIRS - sepsis based on GI imaging, however, most gastroentertis should resolve without antibiotics and she did receive 2 doses in ED. Will cont off antibiotics. Will check influenza Right leg pain - relegated to right knee, also with great toe and ankle pain. Will consult PMR as she has multiple pain complaints in leg. See PT as well since she lives with her son at home and is mostly alone throughout the day. NSTEMI - troponin elevated, severe vascular disease with PAD, will initiate heparin GTT and consult cardiology. Medical management is best for her, she really does not wish for coronary angiography HTN - hold meds for hypotensive with sepsis HLD - can continue statin SEBAS - mild likely vasomotor, will give IVF, monitor renal function COPD - nebs prn PAD s/p fem pop bypass - manual BP TIA with mild cognitive impairment - frequent redirection OA - sees PMR FEN - Clear liquid PPX - heparin FULL CODE Inpatient for sepsis with colitis for at least 2 midnights. BLANCHE GARCIA MD February 23, 2019 08:18
[2019-02-23 08:30] LABS: ALBUMIN 2.6 g/dL (3.4-5.0); CALCIUM 8.2 mg/dL (8.5-10.1); CREATININE 1.2 mg/dL (0.6-1.0); GFR 51.5; PHOSPHORUS 3.2 mg/dL (2.6-4.7); POTASSIUM 3.8 mmol/L (3.5-5.1)
[2019-02-23] MEDS: ACETAMINOPHEN 325 MG TABLET. PO PRN ×3 (08:30→22:52)
[2019-02-23] MEDS: IV RINGERS,LACTATED 1000ML 1,000 ML IV SCH ×2 (08:57→19:27)
[2019-02-23] MEDS ORDERED: IV RINGERS,LACTATED 500ML 500 ML IV ONE (09:15)
--- NOTE | 2019-02-23 09:57 | EKG ---
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 ABNORMAL ECG Electronically Signed On 02-26-2019 15:54:45 CDT by Hussain Cormier
--- NOTE | 2019-02-23 12:17 | EKG ---
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
--- NOTE | 2019-02-23 12:53 | PDOC2 ---
GI CONSULT HPI: HPI: Bhargavi Soares is a 84 years old female patient with past medical history of hypertension,hyperlipidemia, chronic obstructive lungs disease,peripheral vascular disease, diverticulosis, transient ischemic attacks and reported mild cognitive impairment. Patient is currently admitted to hospital after she was brought for chills, nausea, vomiting,abdominal pain and change in bowel habits with constipation. She also reported history of loss of appetite with decreased oral intake and weight loss. Patient currently denies acute symptoms except mild lower abdominal pain. Has mild dry cough but no chest pain, sob or PND. No melena or hematochezia. She does not believe she had colonoscopic exam in the past. FH: Family History: No pertinent hx Social History: ALCOHOL: none Drugs: None ROS: GEN: Denies fevers, chills, sweats HEENT: Denies blurred vision, sore throat CV: Denies chest pain RESP: Denies shortness of air, cough GI: Per HPI : Denies hematuria, dysuria ENDO: Denies weight changes NEURO: Denies confusion, dizziness MSK: Denies weakness, joint pain/swelling SKIN: Denies jaundice, pruritus Vitals: Vitals: Vital Signs Date Time Temp Pulse Resp B/P (MAP) Pulse Ox O2 Delivery O2 Flow Rate FiO2 02/23/19 11:30 74 84/52 (63) 02/23/19 11:00 16 94 Nasal Cannula 3.0 02/23/19 08:00 98.1 98.1 Labs: Labs: Laboratory Tests Test 02/22/19 21:10 02/22/19 22:00 02/23/19 05:00 02/23/19 05:30 White Blood Count 13.0 x10^3/uL (4.0-11.0) 12.3 x10^3/uL (4.0-11.0) Red Blood Count 3.96 x10^6/uL (3.50-5.40) 3.23 x10^6/uL (3.50-5.40) Hemoglobin 12.3 g/dL (12.0-15.5) 10.3 g/dL (12.0-15.5) Hematocrit 37.6 % (36.0-47.0) 31.6 % (36.0-47.0) Mean Corpuscular Volume 95 fL (79-100) 98 fL (79-100) Mean Corpuscular Hemoglobin 31 pg (25-35) 32 pg (25-35) Mean Corpuscular Hemoglobin Concent 33 g/dL (31-37) 33 g/dL (31-37) Red Cell Distribution Width 13.8 % (11.5-14.5) 14.3 % (11.5-14.5) Platelet Count 294 x10^3/uL (140-400) 221 x10^3/uL (140-400) Neutrophils (%) (Auto) 89 % (31-73) 74 % (31-73) Lymphocytes (%) (Auto) 4 % (24-48) 16 % (24-48) Monocytes (%) (Auto) 6 % (0-9) 10 % (0-9) Eosinophils (%) (Auto) 0 % (0-3) 0 % (0-3) Basophils (%) (Auto) 0 % (0-3) 1 % (0-3) Neutrophils # (Auto) 11.6 x10^3uL (1.8-7.7) 9.1 x10^3uL (1.8-7.7) Lymphocytes # (Auto) 0.6 x10^3/uL (1.0-4.8) 1.9 x10^3/uL (1.0-4.8) Monocytes # (Auto) 0.8 x10^3/uL (0.0-1.1) 1.2 x10^3/uL (0.0-1.1) Eosinophils # (Auto) 0.0 x10^3/uL (0.0-0.7) 0.0 x10^3/uL (0.0-0.7) Basophils # (Auto) 0.0 x10^3/uL (0.0-0.2) 0.1 x10^3/uL (0.0-0.2) Segmented Neutrophils % 88 % (35-66) Band Neutrophils % 3 % (0-9) Lymphocytes % 5 % (24-48) Monocytes % 4 % (0-10) Platelet Estimate Adequate (ADEQUATE) Prothrombin Time 12.6 SEC (11.7-14.0) Prothromb Time International Ratio 1.0 (0.8-1.1) Sodium Level 141 mmol/L (136-145) 142 mmol/L (136-145) Potassium Level 4.0 mmol/L (3.5-5.1) 3.8 mmol/L (3.5-5.1) Chloride Level 102 mmol/L (98-107) 108 mmol/L (98-107) Carbon Dioxide Level 29 mmol/L (21-32) 25 mmol/L (21-32) Anion Gap 10 (6-14) 9 (6-14) Blood Urea Nitrogen 27 mg/dL (7-20) 23 mg/dL (7-20) Creatinine 1.3 mg/dL (0.6-1.0) 1.2 mg/dL (0.6-1.0) Estimated GFR (Cockcroft-Gault) 47.0 51.5 BUN/Creatinine Ratio 21 (6-20) Glucose Level 138 mg/dL (70-99) 120 mg/dL (70-99) Lactic Acid Level 1.8 mmol/L (0.4-2.0) 1.2 mmol/L (0.4-2.0) Calcium Level 10.1 mg/dL (8.5-10.1) 8.2 mg/dL (8.5-10.1) Total Bilirubin 0.4 mg/dL (0.2-1.0) Aspartate Amino Transf (AST/SGOT) 17 U/L (15-37) Alanine Aminotransferase (ALT/SGPT) 17 U/L (14-59) Alkaline Phosphatase 115 U/L (46-116) Troponin I Quantitative 0.084 ng/mL (0.000-0.055) 3.186 ng/mL (0.000-0.055) AK-Npe-Z-Type Natriuretic Peptide 2147 pg/mL (0-449) Total Protein 7.0 g/dL (6.4-8.2) Albumin 3.7 g/dL (3.4-5.0) 2.6 g/dL (3.4-5.0) Albumin/Globulin Ratio 1.1 (1.0-1.7) Lipase 39 U/L (73-393) Procalcitonin 2.96 ng/mL (0.00-0.10) Urine Collection Type U cath Urine Color Yellow Urine Clarity Clear Urine pH 5.5 Urine Specific [place] 1.010 Urine Protein 30 mg/dL (NEG-TRACE) Urine Glucose (UA) Negative mg/dL (NEG) Urine Ketones (Stick) Negative mg/dL (NEG) Urine Blood Small (NEG) Urine Nitrite Negative (NEG) Urine Bilirubin Negative (NEG) Urine Urobilinogen Dipstick 0.2 mg/dL (0.2 mg/dL) Urine Leukocyte Esterase Small (NEG) Urine RBC 3-5 /HPF (0-2) Urine WBC 11-20 /HPF (0-4) Urine Squamous Epithelial Cells Few /LPF Urine Bacteria Many /HPF (0-FEW) Phosphorus Level 3.2 mg/dL (2.6-4.7) Allergies: Coded Allergies: Sulfa (Sulfonamide Antibiotics) (Verified Allergy, Severe, TONGUE SWELLING, 04/07/14) Medications: Current Medications Medications (Trade) Dose Ordered Sig/[place] Route PRN Reason Start Time Stop Time Status Last Admin Dose Admin Sodium Chloride 1,000 ml @ 1,000 mls/hr 1X ONCE IV 02/22/19 20:45 02/22/19 21:44 DC 02/22/19 21:23 Acetaminophen (Tylenol) 650 mg 1X ONCE PO 02/22/19 20:45 02/22/19 20:52 DC 02/22/19 21:22 Piperacillin Sod/ Tazobactam Sod 3.375 gm/Sodium Chloride 50 ml @ 100 mls/hr ONCE ONCE IV 02/22/19 21:00 02/22/19 21:29 DC 02/22/19 21:23 Sodium Chloride 1,000 ml @ 1,000 mls/hr 1X ONCE IV 02/22/19 23:30 02/23/19 00:29 DC 02/22/19 23:44 Sodium Chloride 1,000 ml @ 75 mls/hr [id number] IV 02/22/19 23:30 02/23/19 08:17 DC 02/23/19 07:38 Iohexol (Omnipaque 300 Mg/ml) 60 ml 1X ONCE IV 02/23/19 00:15 02/23/19 00:16 DC 02/23/19 00:02 Piperacillin Sod/ Tazobactam Sod 2.25 gm/Sodium Chloride 50 ml @ 100 mls/hr Q6HRS IV 02/23/19 06:00 02/23/19 12:26 Sodium Chloride 500 ml @ 500 mls/hr 1X ONCE IV 02/23/19 02:00 02/23/19 02:59 DC 02/23/19 02:07 Sodium Chloride 500 ml @ 500 mls/hr 1X ONCE IV 02/23/19 02:00 02/23/19 02:59 DC 02/23/19 06:10 Norepinephrine Bitartrate 250 ml @ 1.875 mls/ hr CONT PRN IV SEE I/O RECORD 02/23/19 03:15 02/23/19 07:38 Ondansetron HCl (Zofran) 4 mg PRN Q6HRS PRN IV NAUSEA/VOMITING 02/23/19 03:15 02/23/19 03:17 Sodium Chloride 500 ml @ 500 mls/hr 1X ONCE IV 02/23/19 07:45 02/23/19 08:44 DC 02/23/19 08:28 Acetaminophen (Tylenol) 650 mg PRN Q6HRS PRN PO MILD PAIN / TEMP 02/23/19 08:15 02/23/19 08:30 Ringer's Solution 1,000 ml @ 100 mls/hr Q10H IV 02/23/19 08:30 02/23/19 08:57 Ringer's Solution 500 ml @ 500 mls/hr 1X ONCE IV 02/23/19 09:15 02/23/19 10:14 DC 02/23/19 09:23 Dopamine HCl/ Dextrose 250 ml @ 5.749 mls/ hr CONT PRN IV SEE I/O RECORD 02/23/19 12:15 02/23/19 12:13 Imaging: Imaging: IMAGING REPORT Signed PATIENT: BHARGAVI SOARES ACCOUNT: [id number] : 1935 LOCATION: ER AGE: 84 SEX: F EXAM STATUS: REG ER ORD. PHYSICIAN: RANGEL HARRISON MD REASON: fever, abdo pain. wait for creatinine. PROCEDURE: CT ABD PELV W/ IV CONTRST ONLY CT SCAN OF THE ABDOMEN AND PELVIS WITH IV CONTRAST. History: Fever and abdominal pain Comparison:None. Procedure: Contiguous axial images of the abdomen and pelvis were performed after the administration of 75 cc of Isovue 370 IV contrast and oral contrast. CT Abdomen with contrast: Findings: There is a 2.9 cm suprarenal abdominal aortic aneurysm with calcification the wall and there is an aortobiiliac bypass which is patent. The colon is distended with air and stool. Liver: Unremarkable Spleen: Unremarkable Pancreas: Unremarkable Adrenal Glands: Unremarkable Kidneys: Unremarkable There is no mass or lymphadenopathy. There is no free air. There is no free fluid. CT Pelvis with Contrast: Findings: The urinary bladder appears normal. There is no free fluid. There is no lymphadenopathy. There are exophytic fibroids arising posteriorly from the uterus. The appendix is normal. Impression: Distention the colon with air and stool suggests a mild colonic ileus. PQRS Compliance Statement: One or more of the following individualized dose reduction techniques were utilized for this examination: 1. Automated exposure control 2. Adjustment of the mA and/or kV according to patient size 3. Use of iterative reconstruction technique Electronically signed by: Abel Hardin III, MD (02/23/2019 12:22 AM) [facility] DICTATED and SIGNED BY: ABEL HARDIN III, MD DATE: 02/23/1921 PE: GEN: NAD HEENT: Atraumatic, PERRLA LUNGS: CTAB HEART: RRR, no murmurs ABD: Has old surgical scar. Soft abdomen. No guarding or rebound tenderness. EXTREMITY: No edema SKIN: No rashes, no jaundice NEURO/PSYCH: A & O 3 A/P: A/P: An 84 years old female patient with past medical history of hypertension,hyperlipidemia, chronic obstructive lungs disease,peripheral vascular disease, diverticulosis, transient ischemic attacks and reported mild cognitive impairment. Patient is currently admitted to hospital after she was brought for chills, nausea, vomiting,abdominal pain and change in bowel habits with constipation. She also reported history of loss of appetite with decreased oral intake and weight loss. Patient currently denies acute symptoms except mild lower abdominal pain. Has mild dry cough but no chest pain, sob or PND. No melena or hematochezia. She does not believe she had colonoscopic exam in the past. Labs notable for normocytic anemia with Hgb 10.3. Has also mildly elevated Cr ( 1.2). Imaging of abdomen with CT was unremarkable except evidence of mild distention the colon with air and stool. Recommendations: - Diet as tolerated. - No indication for antimicrobial therapy from GI stand point. - Bowel regimen: Miralax 17grams 2 times daily. - Iron studies. - Doppler ultrasound of abdomen with concern of chromic mesenteric ischemia with history of vascular disease, abdominal pain and weight loss. - Follow up with GI as out patient for EGD and colonoscopy for anemia. - GI available for any Q's. Thank you for allowing me to participate in the care of this patient. KATHYA GANT MD February 23, 2019 12:53
[2019-02-23] MEDS ORDERED: HEPARIN for IV BOLUS 10,000 UNIT/10 ML VIAL. IV PRN (13:00)
[2019-02-23] MEDS ORDERED: HEPARIN for IV BOLUS 10,000 UNIT/10 ML VIAL. IV ONE (13:00)
[2019-02-23] MEDS ORDERED: POLYETHYLENE GLYCOL 3350 17 GM PACKET. PO PRN (13:15)
[2019-02-23] MEDS: traMADol 50 MG TABLET PO PRN (13:27)
[2019-02-23] MEDS: HEPARIN 25,000UTS/500ML PREMIX 500 ML IV PRN (13:39)
[2019-02-23 15:24] LABS: INFLUENZA A PATIENT NEGATIVE (NEGATIVE); INFLUENZA B PATIENT NEGATIVE (NEGATIVE)
--- NOTE | 2019-02-23 17:17 | PDOC2 ---
CONSULT Date of Consult Date of Consult DATE: 02/23/19 TIME: 17:10 Reason for Consult Reason for Consult: Elevated troponin Referring Physician Referring Physician: Dr. Valadez Identification/Chief Complaint Chief Complaint Abdominal pain and chills Source Source: Chart review, Patient History of Present Illness Reason for Visit: The patient is an 84-year-old female who was admitted through the emergency room for complaints of chills and abdominal discomfort. Reported temperature and the ambulance was 102.5. The patient was admitted and workup was shown probable sepsis. From a cardiac viewpoint the patient's troponin has mildly increased to 3.1. She has no acute ischemic EKG changes. She does have a history of diffuse vascular disease however including a femoropopliteal bypass, a carotid endarterectomy and a history of TIAs. She denies any history however of coronary disease or congestive heart failure. She is resting comfortably in bed at this time Past Medical History Cardiovascular: HTN, Hyperlipidemia, Other (PVD) Pulmonary: COPD CENTRAL NERVOUS SYSTEM: TIA Musculoskeletal: Osteoarthritis Renal/: Urinary Incontinence Past Surgical History Past Surgical History: Other (Fem-pop bypass, CEA) Family History Family History: Heart Disease Social History Quit ALCOHOL: none Drugs: None Lives: with Family Current Problem List Problem List Problems Medical Problems: (1) Septic shock Status: Acute Current Medications Current Medications Current Medications Sodium Chloride 1,000 ml @ 1,000 mls/hr 1X ONCE IV Last administered on 02/22/19at 21:23; Start 02/22/19 at 20:45; Stop 02/22/19 at 21:44; Status DC Acetaminophen (Tylenol) 650 mg 1X ONCE PO Last administered on 02/22/19at 21:22; Start 02/22/19 at 20:45; Stop 02/22/19 at 20:52; Status DC Piperacillin Sod/ Tazobactam Sod (Zosyn Per Pharmacy) 1 each PRN DAILY PRN MC SEE COMMENTS; Start 02/22/19 at 20:45; Stop 02/23/19 at 14:53; Status DC Piperacillin Sod/ Tazobactam Sod 3.375 gm/Sodium Chloride 50 ml @ 100 mls/hr ONCE ONCE IV Last administered on 02/22/19at 21:23; Start 02/22/19 at 21:00; Stop 02/22/19 at 21:29; Status DC Sodium Chloride 1,000 ml @ 1,000 mls/hr 1X ONCE IV Last administered on 02/22/19at 23:44; Start 02/22/19 at 23:30; Stop 02/23/19 at 00:29; Status DC Sodium Chloride 1,000 ml @ 75 mls/hr [id number] IV Last administered on 02/23/19at 07:38; Start 02/22/19 at 23:30; Stop 02/23/19 at 08:17; Status DC Iohexol (Omnipaque 300 Mg/ml) 60 ml 1X ONCE IV Last administered on 02/23/19at 00:02; Start 02/23/19 at 00:15; Stop 02/23/19 at 00:16; Status DC Info (CONTRAST GIVEN -- Rx MONITORING) 1 each PRN DAILY PRN MC SEE COMMENTS; Start 02/23/19 at 00:15; Stop 02/25/19 at 00:14 Piperacillin Sod/ Tazobactam Sod 2.25 gm/Sodium Chloride 50 ml @ 100 mls/hr Q6HRS IV Last administered on 02/23/19at 12:26; Start 02/23/19 at 06:00; Stop 02/23/19 at 14:34; Status DC Sodium Chloride 1,000 ml @ 1,000 mls/hr 1X ONCE IV ; Start 02/23/19 at 01:00; Stop 02/23/19 at 01:45; Status DC Sodium Chloride 500 ml @ 500 mls/hr 1X ONCE IV Last administered on 02/23/19at 02:07; Start 02/23/19 at 02:00; Stop 02/23/19 at 02:59; Status DC Norepinephrine Bitartrate 250 ml @ 0 mls/hr 1X ONCE IV ; Start 02/23/19 at 02:00; Stop 02/23/19 at 02:01; Status DC Sodium Chloride 500 ml @ 500 mls/hr 1X ONCE IV Last administered on 02/23/19at 06:10; Start 02/23/19 at 02:00; Stop 02/23/19 at 02:59; Status DC Norepinephrine Bitartrate 250 ml @ 1.875 mls/ hr CONT PRN IV SEE I/O RECORD Last administered on 02/23/19at 07:38; Start 02/23/19 at 03:15 Ondansetron HCl (Zofran) 4 mg PRN Q6HRS PRN IV NAUSEA/VOMITING Last admini stered on 02/23/19 03:17; Start 02/23/19 at 03:15 Iohexol (Omnipaque 300 Mg/ml) 100 ml STK-MED ONCE .ROUTE ; Start 02/23/19 at 04: 24; Stop 02/23/19 at 04:25; Status DC Sodium Chloride 500 ml @ 500 mls/hr 1X ONCE IV Last administered on 02/23/19 08:28; Start 02/23/19 at 07:45; Stop 02/23/19 at 08:44; Status DC Acetaminophen (Tylenol) 650 mg PRN Q6HRS PRN PO MILD PAIN / TEMP Last ad ministered on 02/23/19 14:38; Start 02/23/19 at 08:15 Ringer's Solution 1,000 ml @ 100 mls/hr Q10H IV Last administered on 02/23/19 08:57; Start 02/23/19 at 08:30 Ringer's Solution 500 ml @ 500 mls/hr 1X ONCE IV Last administered on 02/23/19 09:23; Start 02/23/19 at 09:15; Stop 02/23/19 at 10:14; Status DC Dopamine HCl/ Dextrose 250 ml @ 5.749 mls/ hr CONT PRN IV SEE I/O RECORD Last administered on 02/23/19 12:13; Start 02/23/19 at 12:15 Tramadol HCl (Ultram) 50 mg PRN Q6HRS PRN PO MODERATE-SEVERE PAIN Last administered on 02/23/19 13:27; Start 02/23/19 at 12:30 Heparin Sodium (Porcine) (Heparin Sodium) 4,000 unit 1X ONCE IV Last administered on 02/23/19 13:30; Start 02/23/19 at 13:00; Stop 02/23/19 at 13:01; Status DC Heparin Sodium/ Dextrose 500 ml @ 0 mls/hr CONT PRN IV SEE I/O RECORD Last administered on 02/23/19 13:39; Start 02/23/19 at 13:00 Heparin Sodium (Porcine) (Heparin Sodium) 1,900 unit PRN Q6HRS PRN IV FOR UFH LEVEL LESS THAN 0.2; Start 02/23/19 at 13:00 Polyethylene Glycol (miraLAX PACKET) 17 gm PRN BID PRN PO CONSTIPATION Last administered on 02/23/19at 14:38; Start 02/23/19 at 13:15; Stop 02/23/19 at 14:59; Status DC Info (Anti-Coagulation Monitoring By Pharmacy) 1 each PRN DAILY PRN MC SEE COMMENTS; Start 02/23/19 at 13:30 Temazepam (Restoril) 15 mg PRN QHS PRN PO INSOMNIA; Start 02/23/19 at 14:45 Piperacillin Sod/ Tazobactam Sod 2.25 gm/Sodium Chloride 50 ml @ 100 mls/hr Q6HRS IV ; Start 02/23/19 at 18:00; Stop 02/23/19 at 18:00; Status DC Polyethylene Glycol (miraLAX PACKET) 17 gm BID PO ; Start 02/23/19 at 21:00 Active Scripts Active Reported Amlodipine Besylate 10 Mg Tablet 10 Mg PO DAILY Tramadol Hcl 50 Mg Tablet 50 Mg PO Q4H PRN Fish Oil 1,000 Mg Capsule ([place]-3 Fatty Acids/Fish Oil) 1 Each Capsule 1 Each PO Vitamin D3 (Cholecalciferol (Vitamin D3)) 5,000 Unit Capsule 5,000 Unit PO Acetaminophen 500 Mg Tablet 500 Mg PO Aspir 81 (Aspirin) 81 Mg Tablet.dr 81 Mg PO Hydrochlorothiazide Tablet (Hydrochlorothiazide) 25 Mg Tablet 25 Mg PO DAILY Pravastatin Sodium 40 Mg Tablet 40 Mg PO DAILY Miralax (Polyethylene Glycol 3350) 17 Gm Powd.pack 1 Pkt PO DAILY [fiber] Temazepam 30 Mg Capsule 30 Mg PO HS PRN Cozaar (Losartan Potassium) 100 Mg Tablet 100 Mg PO DAILY Allergies Allergies: Coded Allergies: Sulfa (Sulfonamide Antibiotics) (Verified Allergy, Severe, TONGUE SWELLING, 04/07/14) ROS General: YES: Chills, Fatigue Gastrointestinal: Yes Abdominal Pain Physical Exam General: mild distress HEENT: Atraumatic Lungs: Other (mildly decreased breath sounds) Heart: Regular rate Abdomen: Normal bowel sounds Vitals VITALS Vital Signs Date Time Temp Pulse Resp B/P (MAP) Pulse Ox O2 Delivery O2 Flow Rate FiO2 02/23/19 16:00 67 18 98/65 (76) 93 Nasal Cannula 3.0 02/23/19 12:00 98.4 98.4 Labs Labs Laboratory Tests Test 02/22/19 21:10 02/22/19 22:00 02/23/19 05:00 02/23/19 05:30 White Blood Count 13.0 x10^3/uL (4.0-11.0) 12.3 x10^3/uL (4.0-11.0) Red Blood Count 3.96 x10^6/uL (3.50-5.40) 3.23 x10^6/uL (3.50-5.40) Hemoglobin 12.3 g/dL (12.0-15.5) 10.3 g/dL (12.0-15.5) Hematocrit 37.6 % (36.0-47.0) 31.6 % (36.0-47.0) Mean Corpuscular Volume 95 fL (79-100) 98 fL (79-100) Mean Corpuscular Hemoglobin 31 pg (25-35) 32 pg (25-35) Mean Corpuscular Hemoglobin Concent 33 g/dL (31-37) 33 g/dL (31-37) Red Cell Distribution Width 13.8 % (11.5-14.5) 14.3 % (11.5-14.5) Platelet Count 294 x10^3/uL (140-400) 221 x10^3/uL (140-400) Neutrophils (%) (Auto) 89 % (31-73) 74 % (31-73) Lymphocytes (%) (Auto) 4 % (24-48) 16 % (24-48) Monocytes (%) (Auto) 6 % (0-9) 10 % (0-9) Eosinophils (%) (Auto) 0 % (0-3) 0 % (0-3) Basophils (%) (Auto) 0 % (0-3) 1 % (0-3) Neutrophils # (Auto) 11.6 x10^3uL (1.8-7.7) 9.1 x10^3uL (1.8-7.7) Lymphocytes # (Auto) 0.6 x10^3/uL (1.0-4.8) 1.9 x10^3/uL (1.0-4.8) Monocytes # (Auto) 0.8 x10^3/uL (0.0-1.1) 1.2 x10^3/uL (0.0-1.1) Eosinophils # (Auto) 0.0 x10^3/uL (0.0-0.7) 0.0 x10^3/uL (0.0-0.7) Basophils # (Auto) 0.0 x10^3/uL (0.0-0.2) 0.1 x10^3/uL (0.0-0.2) Segmented Neutrophils % 88 % (35-66) Band Neutrophils % 3 % (0-9) Lymphocytes % 5 % (24-48) Monocytes % 4 % (0-10) Platelet Estimate Adequate (ADEQUATE) Prothrombin Time 12.6 SEC (11.7-14.0) Prothromb Time International Ratio 1.0 (0.8-1.1) Sodium Level 141 mmol/L (136-145) 142 mmol/L (136-145) Potassium Level 4.0 mmol/L (3.5-5.1) 3.8 mmol/L (3.5-5.1) Chloride Level 102 mmol/L (98-107) 108 mmol/L (98-107) Carbon Dioxide Level 29 mmol/L (21-32) 25 mmol/L (21-32) Anion Gap 10 (6-14) 9 (6-14) Blood Urea Nitrogen 27 mg/dL (7-20) 23 mg/dL (7-20) Creatinine 1.3 mg/dL (0.6-1.0) 1.2 mg/dL (0.6-1.0) Estimated GFR (Cockcroft-Gault) 47.0 51.5 BUN/Creatinine Ratio 21 (6-20) Glucose Level 138 mg/dL (70-99) 120 mg/dL (70-99) Lactic Acid Level 1.8 mmol/L (0.4-2.0) 1.2 mmol/L (0.4-2.0) Calcium Level 10.1 mg/dL (8.5-10.1) 8.2 mg/dL (8.5-10.1) Total Bilirubin 0.4 mg/dL (0.2-1.0) Aspartate Amino Transf (AST/SGOT) 17 U/L (15-37) Alanine Aminotransferase (ALT/SGPT) 17 U/L (14-59) Alkaline Phosphatase 115 U/L (46-116) Troponin I Quantitative 0.084 ng/mL (0.000-0.055) 3.186 ng/mL (0.000-0.055) BH-Ccs-B-Type Natriuretic Peptide 2147 pg/mL (0-449) Total Protein 7.0 g/dL (6.4-8.2) Albumin 3.7 g/dL (3.4-5.0) 2.6 g/dL (3.4-5.0) Albumin/Globulin Ratio 1.1 (1.0-1.7) Lipase 39 U/L (73-393) Procalcitonin 2.96 ng/mL (0.00-0.10) Urine Collection Type U cath Urine Color Yellow Urine Clarity Clear Urine pH 5.5 Urine Specific [place] 1.010 Urine Protein 30 mg/dL (NEG-TRACE) Urine Glucose (UA) Negative mg/dL (NEG) Urine Ketones (Stick) Negative mg/dL (NEG) Urine Blood Small (NEG) Urine Nitrite Negative (NEG) Urine Bilirubin Negative (NEG) Urine Urobilinogen Dipstick 0.2 mg/dL (0.2 mg/dL) Urine Leukocyte Esterase Small (NEG) Urine RBC 3-5 /HPF (0-2) Urine WBC 11-20 /HPF (0-4) Urine Squamous Epithelial Cells Few /LPF Urine Bacteria Many /HPF (0-FEW) Phosphorus Level 3.2 mg/dL (2.6-4.7) Test 02/23/19 14:48 Influenza Type A Antigen Negative (NEGATIVE) Influenza Type B Antigen Negative (NEGATIVE) Laboratory Tests Test 02/22/19 21:10 02/22/19 22:00 02/23/19 05:00 02/23/19 05:30 White Blood Count 13.0 x10^3/uL (4.0-11.0) 12.3 x10^3/uL (4.0-11.0) Red Blood Count 3.96 x10^6/uL (3.50-5.40) 3.23 x10^6/uL (3.50-5.40) Hemoglobin 12.3 g/dL (12.0-15.5) 10.3 g/dL (12.0-15.5) Hematocrit 37.6 % (36.0-47.0) 31.6 % (36.0-47.0) Mean Corpuscular Volume 95 fL (79-100) 98 fL (79-100) Mean Corpuscular Hemoglobin 31 pg (25-35) 32 pg (25-35) Mean Corpuscular Hemoglobin Concent 33 g/dL (31-37) 33 g/dL (31-37) Red Cell Distribution Width 13.8 % (11.5-14.5) 14.3 % (11.5-14.5) Platelet Count 294 x10^3/uL (140-400) 221 x10^3/uL (140-400) Neutrophils (%) (Auto) 89 % (31-73) 74 % (31-73) Lymphocytes (%) (Auto) 4 % (24-48) 16 % (24-48) Monocytes (%) (Auto) 6 % (0-9) 10 % (0-9) Eosinophils (%) (Auto) 0 % (0-3) 0 % (0-3) Basophils (%) (Auto) 0 % (0-3) 1 % (0-3) Neutrophils # (Auto) 11.6 x10^3uL (1.8-7.7) 9.1 x10^3uL (1.8-7.7) Lymphocytes # (Auto) 0.6 x10^3/uL (1.0-4.8) 1.9 x10^3/uL (1.0-4.8) Monocytes # (Auto) 0.8 x10^3/uL (0.0-1.1) 1.2 x10^3/uL (0.0-1.1) Eosinophils # (Auto) 0.0 x10^3/uL (0.0-0.7) 0.0 x10^3/uL (0.0-0.7) Basophils # (Auto) 0.0 x10^3/uL (0.0-0.2) 0.1 x10^3/uL (0.0-0.2) Segmented Neutrophils % 88 % (35-66) Band Neutrophils % 3 % (0-9) Lymphocytes % 5 % (24-48) Monocytes % 4 % (0-10) Platelet Estimate Adequate (ADEQUATE) Prothrombin Time 12.6 SEC (11.7-14.0) Prothromb Time International Ratio 1.0 (0.8-1.1) Sodium Level 141 mmol/L (136-145) 142 mmol/L (136-145) Potassium Level 4.0 mmol/L (3.5-5.1) 3.8 mmol/L (3.5-5.1) Chloride Level 102 mmol/L (98-107) 108 mmol/L (98-107) Carbon Dioxide Level 29 mmol/L (21-32) 25 mmol/L (21-32) Anion Gap 10 (6-14) 9 (6-14) Blood Urea Nitrogen 27 mg/dL (7-20) 23 mg/dL (7-20) Creatinine 1.3 mg/dL (0.6-1.0) 1.2 mg/dL (0.6-1.0) Estimated GFR (Cockcroft-Gault) 47.0 51.5 BUN/Creatinine Ratio 21 (6-20) Glucose Level 138 mg/dL (70-99) 120 mg/dL (70-99) Lactic Acid Level 1.8 mmol/L (0.4-2.0) 1.2 mmol/L (0.4-2.0) Calcium Level 10.1 mg/dL (8.5-10.1) 8.2 mg/dL (8.5-10.1) Total Bilirubin 0.4 mg/dL (0.2-1.0) Aspartate Amino Transf (AST/SGOT) 17 U/L (15-37) Alanine Aminotransferase (ALT/SGPT) 17 U/L (14-59) Alkaline Phosphatase 115 U/L (46-116) Troponin I Quantitative 0.084 ng/mL (0.000-0.055) 3.186 ng/mL (0.000-0.055) IY-Wvm-O-Type Natriuretic Peptide 2147 pg/mL (0-449) Total Protein 7.0 g/dL (6.4-8.2) Albumin 3.7 g/dL (3.4-5.0) 2.6 g/dL (3.4-5.0) Albumin/Globulin Ratio 1.1 (1.0-1.7) Lipase 39 U/L (73-393) Procalcitonin 2.96 ng/mL (0.00-0.10) Urine Collection Type U cath Urine Color Yellow Urine Clarity Clear Urine pH 5.5 Urine Specific [place] 1.010 Urine Protein 30 mg/dL (NEG-TRACE) Urine Glucose (UA) Negative mg/dL (NEG) Urine Ketones (Stick) Negative mg/dL (NEG) Urine Blood Small (NEG) Urine Nitrite Negative (NEG) Urine Bilirubin Negative (NEG) Urine Urobilinogen Dipstick 0.2 mg/dL (0.2 mg/dL) Urine Leukocyte Esterase Small (NEG) Urine RBC 3-5 /HPF (0-2) Urine WBC 11-20 /HPF (0-4) Urine Squamous Epithelial Cells Few /LPF Urine Bacteria Many /HPF (0-FEW) Phosphorus Level 3.2 mg/dL (2.6-4.7) Test 02/23/19 14:48 Influenza Type A Antigen Negative (NEGATIVE) Influenza Type B Antigen Negative (NEGATIVE) Images Images Chest x-ray with no acute changes. Assessment/Plan Assessment/Plan 1. Probable sepsis. Patient is on antibiotics and following a sepsis protocol. 2. Non-ST elevated myocardial infarction. Probably demand ischemia with a peak troponin of 3.1 and no acute ischemic EKG changes. However the patient has diffuse vascular disease and probable coronary disease as well. At this time would treat medically. We'll check an echocardiogram for LV function and follow closely. Would heparinize at this time as well 3. Peripheral vascular disease as above including a femoropopliteal bypass and carotid endarterectomy. 4. Hypertension. Reasonably controlled. We'll monitor. Thank you for allowing us to participate in the care of your patient. JEREMY RODRIGUEZ MD February 23, 2019 17:17
[2019-02-23] MEDS ORDERED: PIPERACILLIN/TAZOBACTAM 2.25 GM in IV NORMAL SALINE 50ML 50 ML IV SCH (18:00)
[2019-02-23] MEDS: METHYL SALICYLATE/MENTHOL TOPICAL OINTMENT 29GM TUBE. TP PRN ×2 (18:06→19:25)
[2019-02-23] MEDS: POLYETHYLENE GLYCOL 3350 17 GM PACKET. PO SCH (21:10)
[2019-02-23] MEDS: TEMAZEPAM 15 MG CAPSULE PO PRN (21:10)
[2019-02-24] VITALS (31 sets, daily range): BP systolic 64–137; BP diastolic 31–82
[2019-02-24] MEDS: METHYL SALICYLATE/MENTHOL TOPICAL OINTMENT 29GM TUBE. TP PRN (05:08)
[2019-02-24] MEDS: IV RINGERS,LACTATED 1000ML 1,000 ML IV SCH ×2 (06:15→15:46)
[2019-02-24 06:17] LABS: ALBUMIN 2.2 g/dL (3.4-5.0); CALCIUM 7.8 mg/dL (8.5-10.1); CREATININE 0.9 mg/dL (0.6-1.0); GFR 71.8; PHOSPHORUS 2.6 mg/dL (2.6-4.7); POTASSIUM 3.7 mmol/L (3.5-5.1)
[2019-02-24] MEDS: POLYETHYLENE GLYCOL 3350 17 GM PACKET. PO SCH ×2 (08:20→21:35)
[2019-02-24] MEDS: traMADol 50 MG TABLET PO PRN ×2 (08:49→21:35)
--- NOTE | 2019-02-24 10:12 | PDOC ---
[facility] PROGRESS NOTE Chief Complaint Chief Complaint Shakes and nausea and sepsis History of Present Illness History of Present Illness Patient seen and examined in the intensive care unit Chart was reviewed Discussed with her nurse Patient appears quite ill is complaining of pain with inspiration Vitals Vitals Vital Signs Date Time Temp Pulse Resp B/P (MAP) Pulse Ox O2 Delivery O2 Flow Rate FiO2 02/24/19 09:00 70 22 107/60 (76) 97 Nasal Cannula 3.0 02/24/19 08:00 98.4 98.4 Physical Exam General: moderate distress Heart: Normal S1, Other (tachycardic) Lungs: Other (fine wheeze on the left) Abdomen: Normal bowel sounds Extremities: No clubbing, No cyanosis, No edema, No tenderness/swelling, Other (Decreased peripheral pulses in RUE, LUE and LLE, good pulses RLE) Skin: No rashes, No breakdown, No significant lesion Labs LABS Laboratory Tests Test 02/23/19 14:48 02/23/19 19:35 02/24/19 03:00 02/24/19 05:48 Influenza Type A Antigen Negative (NEGATIVE) Influenza Type B Antigen Negative (NEGATIVE) Heparin Anti-Xa Act, Unfractionated 0.72 IU/mL (0.30-0.70) 0.63 IU/mL (0.30-0.70) Sodium Level 142 mmol/L (136-145) Potassium Level 3.7 mmol/L (3.5-5.1) Chloride Level 106 mmol/L (98-107) Carbon Dioxide Level 26 mmol/L (21-32) Anion Gap 10 (6-14) Blood Urea Nitrogen 13 mg/dL (7-20) Creatinine 0.9 mg/dL (0.6-1.0) Estimated GFR (Cockcroft-Gault) 71.8 Glucose Level 112 mg/dL (70-99) Calcium Level 7.8 mg/dL (8.5-10.1) Phosphorus Level 2.6 mg/dL (2.6-4.7) Troponin I Quantitative 12.426 ng/mL (0.000-0.055) Albumin 2.2 g/dL (3.4-5.0) Review of Systems Review of Systems Complains of pain and hunger and weakness seems depressed Assessment and Plan Assessmemt and Plan Problems Medical Problems: (1) Septic shock Status: Acute A/P: AMI with elevated troponin (3) per cardiology will treat medically for now LLQ pain - abnormal CT segmental acute colitis, infectious, vascular, less likely IBD simply based on age. Consult GI. They have seen the patient and would like to hold on antibiotics for now. Right leg pain - relegated to right knee, also with great toe and ankle pain. Will consult PMR HTN - hold meds for hypotensive with sepsis for now . To resume soon. HLD - can continue statin SEBAS - mild likely vasomotor, will give IVF, monitor renal function COPD - nebs prn O2 per nasal cannula when necessary PAD s/p fem pop bypass - manual BP TIA with mild cognitive impairment - frequent redirection OA - sees PMR Daily labs PT OT if possible When necessary pain meds DVT prophylaxis Total time 32 minutes Comment Review of Relevant I have reviewed the following items ne (where applicable) has been applied. Labs Laboratory Tests Test 02/22/19 21:10 02/22/19 22:00 02/23/19 05:00 02/23/19 05:30 White Blood Count 13.0 x10^3/uL (4.0-11.0) 12.3 x10^3/uL (4.0-11.0) Red Blood Count 3.96 x10^6/uL (3.50-5.40) 3.23 x10^6/uL (3.50-5.40) Hemoglobin 12.3 g/dL (12.0-15.5) 10.3 g/dL (12.0-15.5) Hematocrit 37.6 % (36.0-47.0) 31.6 % (36.0-47.0) Mean Corpuscular Volume 95 fL (79-100) 98 fL (79-100) Mean Corpuscular Hemoglobin 31 pg (25-35) 32 pg (25-35) Mean Corpuscular Hemoglobin Concent 33 g/dL (31-37) 33 g/dL (31-37) Red Cell Distribution Width 13.8 % (11.5-14.5) 14.3 % (11.5-14.5) Platelet Count 294 x10^3/uL (140-400) 221 x10^3/uL (140-400) Neutrophils (%) (Auto) 89 % (31-73) 74 % (31-73) Lymphocytes (%) (Auto) 4 % (24-48) 16 % (24-48) Monocytes (%) (Auto) 6 % (0-9) 10 % (0-9) Eosinophils (%) (Auto) 0 % (0-3) 0 % (0-3) Basophils (%) (Auto) 0 % (0-3) 1 % (0-3) Neutrophils # (Auto) 11.6 x10^3uL (1.8-7.7) 9.1 x10^3uL (1.8-7.7) Lymphocytes # (Auto) 0.6 x10^3/uL (1.0-4.8) 1.9 x10^3/uL (1.0-4.8) Monocytes # (Auto) 0.8 x10^3/uL (0.0-1.1) 1.2 x10^3/uL (0.0-1.1) Eosinophils # (Auto) 0.0 x10^3/uL (0.0-0.7) 0.0 x10^3/uL (0.0-0.7) Basophils # (Auto) 0.0 x10^3/uL (0.0-0.2) 0.1 x10^3/uL (0.0-0.2) Segmented Neutrophils % 88 % (35-66) Band Neutrophils % 3 % (0-9) Lymphocytes % 5 % (24-48) Monocytes % 4 % (0-10) Platelet Estimate Adequate (ADEQUATE) Prothrombin Time 12.6 SEC (11.7-14.0) Prothromb Time International Ratio 1.0 (0.8-1.1) Sodium Level 141 mmol/L (136-145) 142 mmol/L (136-145) Potassium Level 4.0 mmol/L (3.5-5.1) 3.8 mmol/L (3.5-5.1) Chloride Level 102 mmol/L (98-107) 108 mmol/L (98-107) Carbon Dioxide Level 29 mmol/L (21-32) 25 mmol/L (21-32) Anion Gap 10 (6-14) 9 (6-14) Blood Urea Nitrogen 27 mg/dL (7-20) 23 mg/dL (7-20) Creatinine 1.3 mg/dL (0.6-1.0) 1.2 mg/dL (0.6-1.0) Estimated GFR (Cockcroft-Gault) 47.0 51.5 BUN/Creatinine Ratio 21 (6-20) Glucose Level 138 mg/dL (70-99) 120 mg/dL (70-99) Lactic Acid Level 1.8 mmol/L (0.4-2.0) 1.2 mmol/L (0.4-2.0) Calcium Level 10.1 mg/dL (8.5-10.1) 8.2 mg/dL (8.5-10.1) Total Bilirubin 0.4 mg/dL (0.2-1.0) Aspartate Amino Transf (AST/SGOT) 17 U/L (15-37) Alanine Aminotransferase (ALT/SGPT) 17 U/L (14-59) Alkaline Phosphatase 115 U/L (46-116) Troponin I Quantitative 0.084 ng/mL (0.000-0.055) 3.186 ng/mL (0.000-0.055) NB-Cgk-O-Type Natriuretic Peptide 2147 pg/mL (0-449) Total Protein 7.0 g/dL (6.4-8.2) Albumin 3.7 g/dL (3.4-5.0) 2.6 g/dL (3.4-5.0) Albumin/Globulin Ratio 1.1 (1.0-1.7) Lipase 39 U/L (73-393) Procalcitonin 2.96 ng/mL (0.00-0.10) Urine Collection Type U cath Urine Color Yellow Urine Clarity Clear Urine pH 5.5 Urine Specific [place] 1.010 Urine Protein 30 mg/dL (NEG-TRACE) Urine Glucose (UA) Negative mg/dL (NEG) Urine Ketones (Stick) Negative mg/dL (NEG) Urine Blood Small (NEG) Urine Nitrite Negative (NEG) Urine Bilirubin Negative (NEG) Urine Urobilinogen Dipstick 0.2 mg/dL (0.2 mg/dL) Urine Leukocyte Esterase Small (NEG) Urine RBC 3-5 /HPF (0-2) Urine WBC 11-20 /HPF (0-4) Urine Squamous Epithelial Cells Few /LPF Urine Bacteria Many /HPF (0-FEW) Phosphorus Level 3.2 mg/dL (2.6-4.7) Test 02/23/19 14:48 02/23/19 19:35 02/24/19 03:00 02/24/19 05:48 Influenza Type A Antigen Negative (NEGATIVE) Influenza Type B Antigen Negative (NEGATIVE) Heparin Anti-Xa Act, Unfractionated 0.72 IU/mL (0.30-0.70) 0.63 IU/mL (0.30-0.70) Sodium Level 142 mmol/L (136-145) Potassium Level 3.7 mmol/L (3.5-5.1) Chloride Level 106 mmol/L (98-107) Carbon Dioxide Level 26 mmol/L (21-32) Anion Gap 10 (6-14) Blood Urea Nitrogen 13 mg/dL (7-20) Creatinine 0.9 mg/dL (0.6-1.0) Estimated GFR (Cockcroft-Gault) 71.8 Glucose Level 112 mg/dL (70-99) Calcium Level 7.8 mg/dL (8.5-10.1) Phosphorus Level 2.6 mg/dL (2.6-4.7) Troponin I Quantitative 12.426 ng/mL (0.000-0.055) Albumin 2.2 g/dL (3.4-5.0) Laboratory Tests Test 02/23/19 14:48 02/23/19 19:35 02/24/19 03:00 02/24/19 05:48 Influenza Type A Antigen Negative (NEGATIVE) Influenza Type B Antigen Negative (NEGATIVE) Heparin Anti-Xa Act, Unfractionated 0.72 IU/mL (0.30-0.70) 0.63 IU/mL (0.30-0.70) Sodium Level 142 mmol/L (136-145) Potassium Level 3.7 mmol/L (3.5-5.1) Chloride Level 106 mmol/L (98-107) Carbon Dioxide Level 26 mmol/L (21-32) Anion Gap 10 (6-14) Blood Urea Nitrogen 13 mg/dL (7-20) Creatinine 0.9 mg/dL (0.6-1.0) Estimated GFR (Cockcroft-Gault) 71.8 Glucose Level 112 mg/dL (70-99) Calcium Level 7.8 mg/dL (8.5-10.1) Phosphorus Level 2.6 mg/dL (2.6-4.7) Troponin I Quantitative 12.426 ng/mL (0.000-0.055) Albumin 2.2 g/dL (3.4-5.0) Microbiology 02/22/19 Blood Culture - Preliminary, Resulted NO GROWTH AFTER 1 DAY Medications Current Medications Sodium Chloride 1,000 ml @ 1,000 mls/hr 1X ONCE IV Last administered on 02/22/19at 21:23; Start 02/22/19 at 20:45; Stop 02/22/19 at 21:44; Status DC Acetaminophen (Tylenol) 650 mg 1X ONCE PO Last administered on 02/22/19at 21:22; Start 02/22/19 at 20:45; Stop 02/22/19 at 20:52; Status DC Piperacillin Sod/ Tazobactam Sod (Zosyn Per Pharmacy) 1 each PRN DAILY PRN MC SEE COMMENTS; Start 02/22/19 at 20:45; Stop 02/23/19 at 14:53; Status DC Piperacillin Sod/ Tazobactam Sod 3.375 gm/Sodium Chloride 50 ml @ 100 mls/hr ONCE ONCE IV Last administered on 02/22/19at 21:23; Start 02/22/19 at 21:00; Stop 02/22/19 at 21:29; Status DC Sodium Chloride 1,000 ml @ 1,000 mls/hr 1X ONCE IV Last administered on 02/22/19at 23:44; Start 02/22/19 at 23:30; Stop 02/23/19 at 00:29; Status DC Sodium Chloride 1,000 ml @ 75 mls/hr [id number] IV Last administered on 02/23/19at 07:38; Start 02/22/19 at 23:30; Stop 02/23/19 at 08:17; Status DC Iohexol (Omnipaque 300 Mg/ml) 60 ml 1X ONCE IV Last administered on 02/23/19at 00:02; Start 02/23/19 at 00:15; Stop 02/23/19 at 00:16; Status DC Info (CONTRAST GIVEN -- Rx MONITORING) 1 each PRN DAILY PRN MC SEE COMMENTS; Start 02/23/19 at 00:15; Stop 02/25/19 at 00:14 Piperacillin Sod/ Tazobactam Sod 2.25 gm/Sodium Chloride 50 ml @ 100 mls/hr Q6HRS IV Last administered on 02/23/19at 12:26; Start 02/23/19 at 06:00; Stop 02/23/19 at 14:34; Status DC Sodium Chloride 1,000 ml @ 1,000 mls/hr 1X ONCE IV ; Start 02/23/19 at 01:00; Stop 02/23/19 at 01:45; Status DC Sodium Chloride 500 ml @ 500 mls/hr 1X ONCE IV Last administered on 02/23/19at 02:07; Start 02/23/19 at 02:00; Stop 02/23/19 at 02:59; Status DC Norepinephrine Bitartrate 250 ml @ 0 mls/hr 1X ONCE IV ; Start 02/23/19 at 02:00 ; Stop 02/23/19 at 02:01; Status DC Sodium Chloride 500 ml @ 500 mls/hr 1X ONCE IV Last administered on 02/23/19at 06:10; Start 02/23/19 at 02:00; Stop 02/23/19 at 02:59; Status DC Norepinephrine Bitartrate 250 ml @ 1.875 mls/ hr CONT PRN IV SEE I/O RECORD Last administered on 02/23/19at 18:05; Start 02/23/19 at 03:15 Ondansetron HCl (Zofran) 4 mg PRN Q6HRS PRN IV NAUSEA/VOMITING Last administered on 02/23/19at 03:17; Start 02/23/19 at 03:15 Iohexol (Omnipaque 300 Mg/ml) 100 ml STK-MED ONCE .ROUTE ; Start 02/23/19 at 04:24; Stop 02/23/19 at 04:25; Status DC Sodium Chloride 500 ml @ 500 mls/hr 1X ONCE IV Last administered on 02/23/19at 08:28; Start 02/23/19 at 07:45; Stop 02/23/19 at 08:44; Status DC Acetaminophen (Tylenol) 650 mg PRN Q6HRS PRN PO MILD PAIN / TEMP Last administered on 02/23/19at 22:52; Start 02/23/19 at 08:15 Ringer's Solution 1,000 ml @ 100 mls/hr Q10H IV Last administered on 02/24/19 06:15; Start 02/23/19 at 08:30 Ringer's Solution 500 ml @ 500 mls/hr 1X ONCE IV Last administered on 02/23/19at 09:23; Start 02/23/19 at 09:15; Stop 02/23/19 at 10:14; Status DC Dopamine HCl/ Dextrose 250 ml @ 5.749 mls/ hr CONT PRN IV SEE I/O RECORD Last administered on 02/23/19at 12:13; Start 02/23/19 at 12:15 Tramadol HCl (Ultram) 50 mg PRN Q6HRS PRN PO MODERATE-SEVERE PAIN Last administered on 02/24/19at 08:49; Start 02/23/19 at 12:30 Heparin Sodium (Porcine) (Heparin Sodium) 4,000 unit 1X ONCE IV Last administered on 02/23/19 13:30; Start 02/23/19 at 13:00; Stop 02/23/19 at 13:01; Status DC Heparin Sodium/ Dextrose 500 ml @ 0 mls/hr CONT PRN IV SEE I/O RECORD Last administered on 02/23/19at 13:39; Start 02/23/19 at 13:00 Heparin Sodium (Porcine) (Heparin Sodium) 1,900 unit PRN Q6HRS PRN IV FOR UFH LEVEL LESS THAN 0.2; Start 02/23/19 at 13:00 Polyethylene Glycol (miraLAX PACKET) 17 gm PRN BID PRN PO CONSTIPATION Last administered on 02/23/19at 14:38; Start 02/23/19 at 13:15; Stop 02/23/19 at 14:59; Status DC Info (Anti-Coagulation Monitoring By Pharmacy) 1 each PRN DAILY PRN MC SEE COMMENTS; Start 02/23/19 at 13:30 Temazepam (Restoril) 15 mg PRN QHS PRN PO INSOMNIA Last administered on 02/23/19at 21:10; Start 02/23/19 at 14:45 Piperacillin Sod/ Tazobactam Sod 2.25 gm/Sodium Chloride 50 ml @ 100 mls/hr Q6HRS IV ; Start 02/23/19 at 18:00; Stop 02/23/19 at 18:00; Status DC Polyethylene Glycol (miraLAX PACKET) 17 gm BID PO Last administered on 02/24/19at 08:20; Start 02/23/19 at 21:00 Multi-Ingredient Ointment (Analgesic [place]) 1 mara PRN QID PRN TP MUSCLE PAIN Last administered on 02/24/19at 05:08; Start 02/23/19 at 18:00 Active Scripts Active Reported Amlodipine Besylate 10 Mg Tablet 10 Mg PO DAILY Tramadol Hcl 50 Mg Tablet 50 Mg PO Q4H PRN Fish Oil 1,000 Mg Capsule ([place]-3 Fatty Acids/Fish Oil) 1 Each Capsule 1 Each PO Vitamin D3 (Cholecalciferol (Vitamin D3)) 5,000 Unit Capsule 5,000 Unit PO Acetaminophen 500 Mg Tablet 500 Mg PO Aspir 81 (Aspirin) 81 Mg Tablet.dr 81 Mg PO Hydrochlorothiazide Tablet (Hydrochlorothiazide) 25 Mg Tablet 25 Mg PO DAILY Pravastatin Sodium 40 Mg Tablet 40 Mg PO DAILY Miralax (Polyethylene Glycol 3350) 17 Gm Powd.pack 1 Pkt PO DAILY [fiber] Temazepam 30 Mg Capsule 30 Mg PO HS PRN Cozaar (Losartan Potassium) 100 Mg Tablet 100 Mg PO DAILY Vitals/I & O Vital Sign - Last 24 Hours 02/23/19 02/23/19 02/23/19 02/23/19 10:15 10:45 11:00 11:15 Pulse 66 66 72 67 Resp 16 B/P (MAP) 71/49 (56) 81/51 (61) 104/57 (73) 71/56 (61) Pulse Ox 94 O2 Delivery Nasal Cannula O2 Flow Rate 3.0 02/23/19 02/23/19 02/23/19 02/23/19 11:30 12:00 12:00 13:00 Temp 98.4 98.4 Pulse 74 72 68 Resp 18 20 B/P (MAP) 84/52 (63) 84/55 (65) 100/66 (77) Pulse Ox 92 94 O2 Delivery Nasal Cannula Nasal Cannula Nasal Cannula O2 Flow Rate 3.0 3.0 3.0 02/23/19 02/23/19 02/23/19 02/23/19 13:27 14:00 14:32 15:00 Pulse 61 71 Resp 20 18 16 20 B/P (MAP) 97/51 (66) 112/64 (80) Pulse Ox 94 96 94 92 O2 Delivery Nasal Cannula Nasal Cannula Nasal Cannula Nasal Cannula O2 Flow Rate 3.0 3.0 3.0 3.0 02/23/19 02/23/19 02/23/19 02/23/19 16:00 16:00 17:00 18:00 Temp 97.6 97.6 Pulse 67 66 68 Resp 18 16 16 B/P (MAP) 98/65 (76) 92/73 (79) 120/62 (81) Pulse Ox 93 93 93 O2 Delivery Nasal Cannula Nasal Cannula Nasal Cannula Nasal Cannula O2 Flow Rate 3.0 3.0 3.0 3.0 02/23/19 02/23/19 02/23/19 02/23/19 18:15 18:30 18:45 19:00 Pulse 66 66 78 66 Resp 18 18 16 22 B/P (MAP) 124/67 (86) 154/57 (89) 127/59 (81) 104/71 (82) Pulse Ox 96 96 96 97 O2 Delivery Nasal Cannula Nasal Cannula Nasal Cannula Nasal Cannula O2 Flow Rate 3.0 3.0 3.0 3.0 02/23/19 02/23/19 02/23/19 02/23/19 19:15 19:51 20:00 21:00 Temp 98.4 98.4 Pulse 74 73 76 Resp 29 22 20 B/P (MAP) 84/53 (63) 128/51 (76) 135/60 (85) Pulse Ox 97 98 98 O2 Delivery Nasal Cannula Nasal Cannula Nasal Cannula Nasal Cannula O2 Flow Rate 3.0 3.0 3.0 3.0 02/23/19 02/23/19 02/23/19 02/23/19 21:15 21:30 22:00 23:00 Pulse 62 67 68 66 Resp 18 24 18 B/P (MAP) 130/75 (93) 109/58 (75) 96/72 (80) 116/53 (74) Pulse Ox 98 98 99 98 O2 Delivery Nasal Cannula Nasal Cannula Nasal Cannula Nasal Cannula O2 Flow Rate 3.0 3.0 3.0 3.0 02/24/19 02/24/19 02/24/19 02/24/19 00:00 00:00 00:15 01:00 Temp 98.8 98.8 Pulse 59 62 60 Resp 19 17 8 B/P (MAP) 95/45 (62) 110/50 (70) 113/50 (71) Pulse Ox 98 100 98 O2 Delivery Nasal Cannula Nasal Cannula Nasal Cannula Nasal Cannula O2 Flow Rate 3.0 3.0 3.0 3.0 02/24/19 02/24/19 02/24/19 02/24/19 01:15 01:30 02:00 02:15 Pulse 56 59 64 62 Resp 16 17 20 21 B/P (MAP) 98/45 (62) 134/59 (84) 119/63 (81) 116/59 (78) Pulse Ox 98 100 98 99 O2 Delivery Nasal Cannula Nasal Cannula Nasal Cannula Nasal Cannula O2 Flow Rate 3.0 3.0 3.0 3.0 02/24/19 02/24/19 02/24/19 02/24/19 03:00 04:00 04:00 05:00 Temp 98.4 98.4 Pulse 58 65 64 Resp 19 14 14 B/P (MAP) 92/39 (56) 95/52 (66) 136/65 (88) Pulse Ox 99 96 98 O2 Delivery Nasal Cannula Nasal Cannula Nasal Cannula Nasal Cannula O2 Flow Rate 3.0 3.0 3.0 3.0 02/24/19 02/24/19 02/24/19 02/24/19 06:00 07:00 08:00 08:00 Temp 98.4 98.4 Pulse 62 64 62 Resp 20 16 9 B/P (MAP) 96/47 (63) 137/53 (81) 94/51 (65) Pulse Ox 97 99 99 O2 Delivery Nasal Cannula Nasal Cannula Nasal Cannula Nasal Cannula O2 Flow Rate 3.0 3.0 3.0 3.0 02/24/19 02/24/19 08:49 09:00 Pulse 70 Resp 22 B/P (MAP) 107/60 (76) Pulse Ox 97 O2 Delivery Nasal Cannula Nasal Cannula O2 Flow Rate 3.0 3.0 Intake and Output 02/23/19 02/23/19 02/24/19 15:00 23:00 07:00 Intake Total 1250 ml 2040.68 ml 696.8 ml Output Total 1300 ml 1175 ml 570 ml Balance -50 ml 865.68 ml 126.8 ml CASTLE,NIAL K III DO February 24, 2019 10:12
[2019-02-24] MEDS: ACETAMINOPHEN 325 MG TABLET. PO PRN ×2 (11:38→23:28)
--- NOTE | 2019-02-24 12:34 | CARD ---
MR#: [id number] Date of Study: 02/24/2019 Ordering Physician: JEREMY CORMIER, Referring Physician: DEYANIRA ROBERTS Tech: Liza Lebron RDCS APPROVED REPORT EXAM: Two-dimensional and M-mode echocardiogram with Doppler and color Doppler. Other Information Quality : AverageHR: 91bpm Rhythm : NSR INDICATION Non STEMI 2D DIMENSIONS RVDd2.7 (2.9-3.5cm)Left Atrium(2D)2.9 (1.6-4.0cm) IVSd1.0 (0.7-1.1cm)Aortic Root(2D)3.3 (2.0-3.7cm) LVDd4.2 (3.9-5.9cm)LVOT Diameter2.1 (1.8-2.4cm) PWd0.9 (0.7-1.1cm)LVDs3.2 (2.5-4.0cm) FS (%) 23.8 %SV36.7 ml LVEF(%)50.0 (>50%) Aortic Valve AoV Peak Jj.125.3cm/sAoV VTI32.8cm AO Peak GR.6.3mmHgLVOT VTI 20.48cm AO Mean GR.4mmHgAVA (VTI)2.11cm2 Mitral Valve MV E Bhycfsgp747.2cm/sMV E Peak Gr.160mmHg MV DECEL [id number] A Tejpyxrd649.4cm/s MV E Mean Gr.5mmHgE/A Ratio1.1 MV A [id number] Tricuspid Valve TR P. Zypyuayd898ov/sRAP [id number] TR Peak Gr.24diClLSXW95ytWz Pulmonary Vein S1 Lyzfjzqw17.2cm/sS2 Lfbnkfnn56.51cm/s D2 Axkqqcky04.5cm/sPVa [id number] LEFT VENTRICLE The left ventricle is normal size. There is borderline concentric left ventricular hypertrophy. Left ventricle systolic function is low normal. The Ejection Fraction is 50-55%. There is normal LV segmen edgar wall motion. Transmitral Doppler flow pattern is Grade I-abnormal relaxation pattern. RIGHT VENTRICLE The right ventricle is normal size. There is normal right ventricular wall thickness. The right ventr icular systolic function is normal. ATRIA The left atrium size is normal. The right atrium size is normal. The interatrial septum is intact wit h no evidence for an atrial septal defect or patent foramen ovale as noted on 2-D or Doppler imaging. AORTIC VALVE The aortic valve is thickened but opens well. The aortic valve is trileaflet. Doppler and Color Flow revealed trace to mild aortic regurgitation. There is no significant aortic valvular stenosis. MITRAL VALVE The mitral valve is thickened but opens well. There is no evidence of mitral valve prolapse. There is no mitral valve stenosis. Doppler and Color-flow revealed mild to moderate mitral regurgitation. TRICUSPID VALVE The tricuspid valve is normal in structure and function. Doppler and Color Flow revealed mild tricusp id regurgitation. There is moderate pulmonary hypertension. The PA pressure was estimated at 55 mmHg. There is no tricuspid valve prolapse or vegetation. PULMONIC VALVE The pulmonic valve is not well visualized. GREAT VESSELS The aortic root is normal in size. The ascending aorta is normal in size. The IVC is dilated and syeda apses >50% with inspiration. PERICARDIAL EFFUSION There is no evidence of significant pericardial effusion. Critical Notification Critical Value: No <Conclusion> The left ventricle is normal size. Left ventricle systolic function is low normal. The Ejection Fraction is 50-55%. There is borderline concentric left ventricular hypertrophy. There is no significant aortic valvular stenosis. Doppler and Color Flow revealed trace to mild aortic regurgitation. Doppler and Color-flow revealed mild to moderate mitral regurgitation. Doppler and Color Flow revealed mild tricuspid regurgitation. There is moderate pulmonary hypertension. The PA pressure was estimated at 55 mmHg. Signed by : Jeremy Cormier MD Electronically Approved : 02/24/2019 12:34:10
--- NOTE | 2019-02-24 15:02 | NUR ---
SS following for discharge planning. SS reviewed pt chart. Pt is from home and currently requiring oxygen. PT/OT ordered. SS will await PT/OT evaluations and recommendations and will proceed accordingly with discharge planning.
--- NOTE | 2019-02-24 16:28 | PDOC ---
Subjective: Subjective: Says no abd pain and says eating and stooling without issue. Objective: Vital Signs: Vital Signs Date Time Temp Pulse Resp B/P (MAP) Pulse Ox O2 Delivery O2 Flow Rate FiO2 02/24/19 16:00 Nasal Cannula 3.0 02/24/19 14:45 74 29 96/66 (76) 99 02/24/19 12:00 98.5 98.5 Labs: BLOOD CULTURE Preliminary NO GROWTH AFTER 1 DAY Laboratory Tests Test 02/23/19 19:35 02/24/19 03:00 02/24/19 05:48 02/24/19 10:36 Heparin Anti-Xa Act, Unfractionated 0.72 IU/mL 0.63 IU/mL 0.48 IU/mL Sodium Level 142 mmol/L Potassium Level 3.7 mmol/L Chloride Level 106 mmol/L Carbon Dioxide Level 26 mmol/L Anion Gap 10 Blood Urea Nitrogen 13 mg/dL Creatinine 0.9 mg/dL Estimated GFR (Cockcroft-Gault) 71.8 Glucose Level 112 mg/dL Calcium Level 7.8 mg/dL Phosphorus Level 2.6 mg/dL Troponin I Quantitative 12.426 ng/mL Albumin 2.2 g/dL Imaging: CT A/P Impression: Distention the colon with air and stool suggests a mild colonic ileus. PE: GEN: NAD LUNGS: NC HEART: RRR ABD: NABS, S/ND/NT NEURO/PSYCH: A & O 3 A/P: Hypotension, NSTEMI N/v, abd pain, CIBH - better Anemia - on Heparin -- Continue support per GI. TISHA PAUL February 24, 2019 16:28
--- NOTE | 2019-02-24 17:45 | NUR ---
Patient blood pressures were okay at beginning of shift. Then blood pressures started to drop to 70's over 45's so levophed and dopamine drips were gradually restarted to keep systolic blood pressure above 90. At this time patient has a femoral line, and her vasculature is too poor to start a peripheral IV, and patient is also getting levophed. We talked to Dr. Voss in order to get orders for a PICC, and to turn off the heparin gtt 2 hours prior to insertion of picc line. Patient and family educated about the risks and benefits of central lines and verbalized understanding. Consent was also obtained.
[2019-02-24] MEDS: PANTOPRAZOLE 40 MG TABLET.DR. PO SCH (17:56)
[2019-02-24] MEDS: NOREPINEPHRIN 8MG/250ML PREMIX 250 ML IV PRN (17:56)
[2019-02-24] MEDS: TEMAZEPAM 15 MG CAPSULE PO PRN (21:34)
--- NOTE | 2019-02-24 21:47 | RAD ---
EXAM: Chest, single view. HISTORY: PICC placement. COMPARISON: 02/22/2019 FINDINGS: A frontal view of the chest is obtained. There is a right PICC with the tip in the superior vena cava. There is stable mild diffuse increased interstitial opacity. There is a stable prominent cardiac silhouette. There is no pleural effusion or pneumothorax. There is a small nodular opacity overlying the left mid thorax which is not seen on the recent a pulmonary vascular shadow. IMPRESSION: 1. Right PICC with the tip in the superior vena cava. 2. Stable mild diffuse increased interstitial opacity suggesting interstitial infiltrate. Electronically signed by: Baylee Mccain MD (02/24/2019 9:44 PM) [facility]
--- NOTE | 2019-02-24 23:10 | CONS ---
DATE OF CONSULTATION: 02/24/2019 ATTENDING PHYSICIAN: Mary Valadez M.D. REASON FOR CONSULTATION: The patient was seen at the request of Dr. Blackman for rehab evaluation about her knee pain. HISTORY OF PRESENT ILLNESS: This is an 84-year-old female, known to me, with known hypertension, hyperlipidemia, chronic obstructive pulmonary disease and peripheral vascular disease, status post femoral-popliteal bypass surgery. The patient was admitted on 02/23/2019 with shortness of breath and sweating and abdominal pain started in the afternoon of 02/22/2019. The patient since admission is being treated for urinary tract infection and also being evaluated for any coronary artery disease. The patient admits some back pain while swallowing. The patient admits pain in her knees, especially right knee. I injected her right knee in October of this year. The patient denies any dysuria. She admits to some constipation problems. PAST MEDICAL HISTORY: Also includes chronic obstructive pulmonary disease, previous transient ischemic episode, degenerative joint disease and urinary incontinence. ALLERGIES: SHE IS KNOWN ALLERGIC TO SULFA. FAMILY HISTORY: Heart disease. SOCIAL HISTORY: The patient lives with her family, has one step to enter the house. She usually walks without any assistive devices inside the house; outside the house, she uses a cane. PHYSICAL EXAMINATION: Today revealed an elderly female. She is alert; oriented to time, place, person and circumstance and follows commands appropriately. Moves all 4 extremities voluntarily, where she had 4+/5 grade muscle strength. Deep tendon reflexes are 1-2+ and symmetrical with absent ankle jerks. She had equal perception on touch and pinprick sensation bilaterally. She had crepitus on range of motion of both knee joints with knee joint effusion, mainly on the right side, and some laxity of knee joint collateral ligament and some varus deformity of her right knee. She had an indwelling Leach catheter in place. No tenderness to palpation over the thoracic or lumbar spine area. Straight leg raising test is negative bilaterally. She had pain-free range of motion on both hip joints. ASSESSMENT: An elderly female with known hypertension; hyperlipidemia; chronic obstructive pulmonary disease; peripheral arterial disease, status post femoral-popliteal bypass surgery and degenerative changes of both knees with pain, right knee, admitted with left lower quadrant pain and also associated non ST segment elevated myocardial infarction, sepsis with hypotension and acute kidney injury. RECOMMENDATIONS: When medically stable, to consider injecting painful right knee to get up as tolerated. Dr. Blackman, I appreciate asking me to participate in the care of this interesting patient. I will be glad to follow her with you as needed for her rehabilitation. ERIN PRIETO MD DR: JONAH/lexi JOB#: [id number] / [id number] CORNELIO
[2019-02-24] MEDS: ONDANSETRON PF 4 MG/2 ML VIAL. IV PRN (23:21)
[2019-02-25] VITALS (32 sets, daily range): BP systolic 79–190; BP diastolic 30–86
[2019-02-25] MEDS: IV RINGERS,LACTATED 1000ML 1,000 ML IV SCH ×2 (00:30→08:45)
--- NOTE | 2019-02-25 03:24 | NUR ---
[facility] nurse arrived at approx 2030 this shift. TL PICC placed in right upper arm by [facility] with no reported complications. Placement confirmed with xray. Blood return noted from all lumens, lines flushed, and fluids currently infusing. Right femoral central line discontinued at approx 2145. Direct pressure applied for 10 minutes. No further bleeding noted. Dressing applied and continues to be clean/dry/intact. Pedal pulses noted bilaterally. Pt is currently resting with eyes closed and call light within reach.
[2019-02-25] MEDS: HEPARIN 25,000UTS/500ML PREMIX 500 ML IV PRN (05:12)
[2019-02-25 07:07] LABS: ALBUMIN 2.2 g/dL (3.4-5.0); CREATININE 0.8 mg/dL (0.6-1.0); GFR 82.3; PHOSPHORUS 3.1 mg/dL (2.6-4.7); POTASSIUM 3.1 mmol/L (3.5-5.1)
[2019-02-25] MEDS: PANTOPRAZOLE 40 MG TABLET.DR. PO SCH (08:36)
[2019-02-25] MEDS: POLYETHYLENE GLYCOL 3350 17 GM PACKET. PO SCH ×2 (08:36→21:17)
[2019-02-25] MEDS: NOREPINEPHRIN 8MG/250ML PREMIX 250 ML IV PRN (08:49)
--- NOTE | 2019-02-25 08:56 | PDOC ---
PROGRESS NOTES Subjective Subjective She feels better. Objective Objective Vital Signs Date Time Temp Pulse Resp B/P (MAP) Pulse Ox O2 Delivery O2 Flow Rate FiO2 02/25/19 06:00 83 20 135/75 (95) 97 Nasal Cannula 3.0 02/25/19 04:00 99.0 99.0 Intake and Output 02/25/19 07:00 Intake Total 4074.96 ml Output Total 4850 ml Balance -775.04 ml Intake Oral 485 ml IV Total 3589.96 ml Output Urine Total 4850 ml # Bowel Movements 1 Physical Exam Physical Exam She is eating breakfast in bed and she admits she got up this AM and she denies any chest pain or knee joint pain. Assessment Assessment Problems Medical Problems: (1) Septic shock Status: Acute Plan Plan of Care To consider injecting her right knee joint if knee pain is interfering with her mobility. Comment Review of Relevant I have reviewed the following items ne (where applicable) has been applied. Labs Laboratory Tests Test 02/23/19 14:48 02/23/19 19:35 02/24/19 03:00 02/24/19 05:48 Influenza Type A Antigen Negative (NEGATIVE) Influenza Type B Antigen Negative (NEGATIVE) Heparin Anti-Xa Act, Unfractionated 0.72 IU/mL (0.30-0.70) 0.63 IU/mL (0.30-0.70) Sodium Level 142 mmol/L (136-145) Potassium Level 3.7 mmol/L (3.5-5.1) Chloride Level 106 mmol/L (98-107) Carbon Dioxide Level 26 mmol/L (21-32) Anion Gap 10 (6-14) Blood Urea Nitrogen 13 mg/dL (7-20) Creatinine 0.9 mg/dL (0.6-1.0) Estimated GFR (Cockcroft-Gault) 71.8 Glucose Level 112 mg/dL (70-99) Calcium Level 7.8 mg/dL (8.5-10.1) Phosphorus Level 2.6 mg/dL (2.6-4.7) Troponin I Quantitative 12.426 ng/mL (0.000-0.055) Albumin 2.2 g/dL (3.4-5.0) Test 02/24/19 10:36 02/25/19 06:40 02/25/19 07:45 Heparin Anti-Xa Act, Unfractionated 0.48 IU/mL (0.30-0.70) 0.17 IU/mL (0.30-0.70) Sodium Level 143 mmol/L (136-145) Potassium Level 3.1 mmol/L (3.5-5.1) Chloride Level 106 mmol/L (98-107) Carbon Dioxide Level 29 mmol/L (21-32) Anion Gap 8 (6-14) Blood Urea Nitrogen 9 mg/dL (7-20) Creatinine 0.8 mg/dL (0.6-1.0) Estimated GFR (Cockcroft-Gault) 82.3 Glucose Level 150 mg/dL (70-99) Calcium Level 8.0 mg/dL (8.5-10.1) Phosphorus Level 3.1 mg/dL (2.6-4.7) Albumin 2.2 g/dL (3.4-5.0) Laboratory Tests Test 02/24/19 10:36 02/25/19 06:40 02/25/19 07:45 Heparin Anti-Xa Act, Unfractionated 0.48 IU/mL (0.30-0.70) 0.17 IU/mL (0.30-0.70) Sodium Level 143 mmol/L (136-145) Potassium Level 3.1 mmol/L (3.5-5.1) Chloride Level 106 mmol/L (98-107) Carbon Dioxide Level 29 mmol/L (21-32) Anion Gap 8 (6-14) Blood Urea Nitrogen 9 mg/dL (7-20) Creatinine 0.8 mg/dL (0.6-1.0) Estimated GFR (Cockcroft-Gault) 82.3 Glucose Level 150 mg/dL (70-99) Calcium Level 8.0 mg/dL (8.5-10.1) Phosphorus Level 3.1 mg/dL (2.6-4.7) Albumin 2.2 g/dL (3.4-5.0) Microbiology 02/22/19 Blood Culture - Preliminary, Resulted NO GROWTH AFTER 2 DAYS 02/22/19 Urine Culture - Preliminary, Resulted 02/22/19 Urine Culture Result 1 (JIN) - Preliminary, Resulted Medications Current Medications Sodium Chloride 1,000 ml @ 1,000 mls/hr 1X ONCE IV Last administered on 02/22/19at 21:23; Start 5/4/19 at 20:45; Stop 02/22/19 at 21:44; Status DC Acetaminophen (Tylenol) 650 mg 1X ONCE PO Last administered on 02/22/19at 21:22; Start 02/22/19 at 20:45; Stop 02/22/19 at 20:52; Status DC Piperacillin Sod/ Tazobactam Sod (Zosyn Per Pharmacy) 1 each PRN DAILY PRN MC SEE COMMENTS; Start 02/22/19 at 20:45; Stop 02/23/19 at 14:53; Status DC Piperacillin Sod/ Tazobactam Sod 3.375 gm/Sodium Chloride 50 ml @ 100 mls/hr ONCE ONCE IV Last administered on 02/22/19at 21:23; Start 02/22/19 at 21:00; Stop 02/22/19 at 21:29; Status DC Sodium Chloride 1,000 ml @ 1,000 mls/hr 1X ONCE IV Last administered on 02/22/19at 23:44; Start 02/22/19 at 23:30; Stop 02/23/19 at 00:29; Status DC Sodium Chloride 1,000 ml @ 75 mls/hr [id number] IV Last administered on 02/23/19at 07:38; Start 02/22/19 at 23:30; Stop 02/23/19 at 08:17; Status DC Iohexol (Omnipaque 300 Mg/ml) 60 ml 1X ONCE IV Last administered on 02/23/19at 00:02; Start 02/23/19 at 00:15; Stop 02/23/19 at 00:16; Status DC Info (CONTRAST GIVEN -- Rx MONITORING) 1 each PRN DAILY PRN MC SEE COMMENTS; Start 02/23/19 at 00:15; Stop 02/25/19 at 00:14; Status DC Piperacillin Sod/ Tazobactam Sod 2.25 gm/Sodium Chloride 50 ml @ 100 mls/hr Q6HRS IV Last administered on 02/23/19at 12:26; Start 02/23/19 at 06:00; Stop 02/23/19 at 14:34; Status DC Sodium Chloride 1,000 ml @ 1,000 mls/hr 1X ONCE IV ; Start 02/23/19 at 01:00; Stop 02/23/19 at 01:45; Status DC Sodium Chloride 500 ml @ 500 mls/hr 1X ONCE IV Last administered on 02/23/19at 02:07; Start 02/23/19 at 02:00; Stop 02/23/19 at 02:59; Status DC Norepinephrine Bitartrate 250 ml @ 0 mls/hr 1X ONCE IV ; Start 02/23/19 at 02:00; Stop 02/23/19 at 02:01; Status DC Sodium Chloride 500 ml @ 500 mls/hr 1X ONCE IV Last administered on 02/23/19at 06:10; Start 02/23/19 at 02:00; Stop 02/23/19 at 02:59; Status DC Norepinephrine Bitartrate 250 ml @ 1.875 mls/ hr CONT PRN IV SEE I/O RECORD Last administered on 02/25/19at 08:49; Start 02/23/19 at 03:15 Ondansetron HCl (Zofran) 4 mg PRN Q6HRS PRN IV NAUSEA/VOMITING Last administered on 02/24/19at 23:21; Start 02/23/19 at 03:15 Iohexol (Omnipaque 300 Mg/ml) 100 ml STK-MED ONCE .ROUTE ; Start 02/23/19 at 04:24; Stop 02/23/19 at 04:25; Status DC Sodium Chloride 500 ml @ 500 mls/hr 1X ONCE IV Last administered on 02/23/19at 08:28; Start 02/23/19 at 07:45; Stop 02/23/19 at 08:44; Status DC Acetaminophen (Tylenol) 650 mg PRN Q6HRS PRN PO MILD PAIN / TEMP Last administered on 02/24/19at 23:28; Start 02/23/19 at 08:15 Ringer's Solution 1,000 ml @ 100 mls/hr Q10H IV Last administered on 02/25/19at 08:45; Start 02/23/19 at 08:30 Ringer's Solution 500 ml @ 500 mls/hr 1X ONCE IV Last administered on 02/23/19at 09:23; Start 02/23/19 at 09:15; Stop 02/23/19 at 10:14; Status DC Dopamine HCl/ Dextrose 250 ml @ 5.749 mls/ hr CONT PRN IV SEE I/O RECORD Last administered on 02/25/19 05:11; Start 02/23/19 at 12:15 Tramadol HCl (Ultram) 50 mg PRN Q6HRS PRN PO MODERATE-SEVERE PAIN Last administered on 02/24/19 21:35; Start 02/23/19 at 12:30 Heparin Sodium (Porcine) (Heparin Sodium) 4,000 unit 1X ONCE IV Last administered on 02/23/19 13:30; Start 02/23/19 at 13:00; Stop 02/23/19 at 13:01; Status DC Heparin Sodium/ Dextrose 500 ml @ 0 mls/hr CONT PRN IV SEE I/O RECORD Last administered on 02/25/19 05:12; Start 02/23/19 at 13:00 Heparin Sodium (Porcine) (Heparin Sodium) 1,900 unit PRN Q6HRS PRN IV FOR UFH LEVEL LESS THAN 0.2; Start 02/23/19 at 13:00 Polyethylene Glycol (miraLAX PACKET) 17 gm PRN BID PRN PO CONSTIPATION Last administered on 02/23/19 14:38; Start 02/23/19 at 13:15; Stop 02/23/19 at 14:59; Status DC Info (Anti-Coagulation Monitoring By Pharmacy) 1 each PRN DAILY PRN MC SEE COMMENTS; Start 02/23/19 at 13:30 Temazepam (Restoril) 15 mg PRN QHS PRN PO INSOMNIA Last administered on 02/24/19 21:34; Start 02/23/19 at 14:45 Piperacillin Sod/ Tazobactam Sod 2.25 gm/Sodium Chloride 50 ml @ 100 mls/hr Q6HRS IV ; Start 02/23/19 at 18:00; Stop 02/23/19 at 18:00; Status DC Polyethylene Glycol (miraLAX PACKET) 17 gm BID PO Last administered on 02/25/19 08:36; Start 02/23/19 at 21:00 Multi-Ingredient Ointment (Analgesic [place]) 1 mara PRN QID PRN TP MUSCLE PAIN Last administered on 02/24/19 05:08; Start 02/23/19 at 18:00 Pantoprazole Sodium (Protonix) 40 mg DAILYAC PO Last administered on 02/25/19 08:36; Start 02/24/19 at 17:30 Active Scripts Active Reported Amlodipine Besylate 10 Mg Tablet 10 Mg PO DAILY Tramadol Hcl 50 Mg Tablet 50 Mg PO Q4H PRN Fish Oil 1,000 Mg Capsule ([place]-3 Fatty Acids/Fish Oil) 1 Each Capsule 1 Each PO Vitamin D3 (Cholecalciferol (Vitamin D3)) 5,000 Unit Capsule 5,000 Unit PO Acetaminophen 500 Mg Tablet 500 Mg PO Aspir 81 (Aspirin) 81 Mg Tablet.dr 81 Mg PO Hydrochlorothiazide Tablet (Hydrochlorothiazide) 25 Mg Tablet 25 Mg PO DAILY Pravastatin Sodium 40 Mg Tablet 40 Mg PO DAILY Miralax (Polyethylene Glycol 3350) 17 Gm Powd.pack 1 Pkt PO DAILY [fiber] Temazepam 30 Mg Capsule 30 Mg PO HS PRN Cozaar (Losartan Potassium) 100 Mg Tablet 100 Mg PO DAILY Vitals/I & O Vital Sign - Last 24 Hours 02/24/19 02/24/19 02/24/19 02/24/19 09:00 10:00 11:00 12:00 Pulse 70 66 72 Resp 22 23 24 B/P (MAP) 107/60 (76) 98/73 (81) 84/49 (61) Pulse Ox 97 96 96 O2 Delivery Nasal Cannula Nasal Cannula Nasal Cannula Nasal Cannula O2 Flow Rate 3.0 3.0 3.0 3.0 02/24/19 02/24/19 02/24/19 02/24/19 12:00 13:00 13:30 13:45 Temp 98.5 98.5 Pulse 64 72 66 74 Resp 21 33 33 33 B/P (MAP) 106/67 (80) 97/57 (70) 64/31 (42) 77/48 (58) Pulse Ox 97 98 97 98 O2 Delivery Nasal Cannula Nasal Cannula Nasal Cannula Nasal Cannula O2 Flow Rate 3.0 3.0 3.0 3.0 02/24/19 02/24/19 02/24/19 02/24/19 14:00 14:30 14:45 15:00 Pulse 68 66 74 68 Resp 33 29 29 29 B/P (MAP) 83/43 (56) 86/59 (68) 96/66 (76) Pulse Ox 97 97 99 94 O2 Delivery Nasal Cannula Nasal Cannula Nasal Cannula Nasal Cannula O2 Flow Rate 3.0 3.0 3.0 3.0 02/24/19 02/24/19 02/24/19 02/24/19 16:00 16:00 17:00 18:00 Temp 98.2 98.2 Pulse 72 78 80 Resp 29 34 33 B/P (MAP) 122/60 (80) 107/59 (75) Pulse Ox 94 93 95 O2 Delivery Nasal Cannula Nasal Cannula Nasal Cannula Nasal Cannula O2 Flow Rate 3.0 3.0 3.0 3.0 02/24/19 02/24/19 02/24/19 02/24/19 18:30 19:00 20:00 20:00 Temp 98.6 98.6 Pulse 80 81 86 Resp 21 22 20 B/P (MAP) 102/82 (89) 94/51 (65) 107/54 (71) Pulse Ox 97 94 95 O2 Delivery Nasal Cannula Nasal Cannula Nasal Cannula Nasal Cannula O2 Flow Rate 3.0 3.0 3.0 3.0 02/24/19 02/24/19 02/24/19 02/24/19 21:00 21:35 22:00 23:00 Pulse 84 93 84 Resp 16 18 18 20 B/P (MAP) 113/51 (71) 96/55 (69) 123/61 (81) Pulse Ox 96 95 95 O2 Delivery Nasal Cannula Nasal Cannula Nasal Cannula Nasal Cannula O2 Flow Rate 3.0 3.0 3.0 3.0 02/24/19 02/25/19 02/25/19 02/25/19 23:59 00:00 00:15 01:00 Temp 100.8 99.7 100.8 99.7 Pulse 93 98 86 Resp 24 26 B/P (MAP) 127/64 (85) 131/60 (83) 106/56 (73) Pulse Ox 94 94 O2 Delivery Nasal Cannula Nasal Cannula Nasal Cannula O2 Flow Rate 3.0 3.0 3.0 02/25/19 02/25/19 02/25/19 02/25/19 02:00 03:00 04:00 04:00 Temp 99.0 99.0 Pulse 77 74 73 Resp 14 20 22 B/P (MAP) 103/57 (72) 104/55 (71) 124/50 (74) Pulse Ox 93 94 95 O2 Delivery Nasal Cannula Nasal Cannula Nasal Cannula Nasal Cannula O2 Flow Rate 3.0 3.0 3.0 3.0 02/25/19 02/25/19 05:00 06:00 Pulse 83 83 Resp 17 20 B/P (MAP) 122/65 (84) 135/75 (95) Pulse Ox 98 97 O2 Delivery Nasal Cannula Nasal Cannula O2 Flow Rate 3.0 3.0 Intake and Output 02/24/19 02/24/19 02/25/19 15:00 23:00 07:00 Intake Total 122.89 ml 2190.59 ml 1761.48 ml Output Total 935 ml 1925 ml 1990 ml Balance -812.11 ml 265.59 ml -228.52 ml Nutrition Consultation Dietary Evaluation: Recommendations by RD: Increase Calorie Intake, Protein supplementation Comments: Continue w/GI soft/cardiac diet as ordered, honor food preferences, and provide snacks as requested REC Ensure (strawberry) w/lunch trays Expected Outcomes/Goals: PO intake to meet >75% est needs Malnutrition Findings: Food and Nutrition Intake (Mod: <75% est energy req 7days Weight Status: Appropriate ERIN PRIETO MD February 25, 2019 08:56
[2019-02-25] MEDS: ANTI-COAG MONITOR BY PHARMACY. MC PRN (09:00)
[2019-02-25] MEDS ORDERED: POTASSIUM CHLORIDE 20 MEQ TABLET.ER. PO ONE (09:15)
[2019-02-25] MEDS ORDERED: ASPIRIN ENTERIC COATED 325 MG TABLET.DR. PO ONE (09:15)
--- NOTE | 2019-02-25 09:20 | PDOC ---
CARDIO Progress Notes Date and Time Date of Service 02/25/2019 Time of Evaluation 0840 Subjective Subjective: No Chest Pain, No shortness of breath, No Palpitations Vitals Vitals Vital Signs Date Time Temp Pulse Resp B/P (MAP) Pulse Ox O2 Delivery O2 Flow Rate FiO2 02/25/19 06:00 83 20 135/75 (95) 97 Nasal Cannula 3.0 02/25/19 04:00 99.0 99.0 Weight Weight [ ] Input and Output Intake and Output Intake and Output 02/25/19 07:00 Intake Total 4074.96 ml Output Total 4850 ml Balance -775.04 ml Intake Oral 485 ml IV Total 3589.96 ml Output Urine Total 4850 ml # Bowel Movements 1 Laboratory Labs Laboratory Tests Test 02/24/19 10:36 02/25/19 06:40 02/25/19 07:45 Heparin Anti-Xa Act, Unfractionated 0.48 IU/mL (0.30-0.70) 0.17 IU/mL (0.30-0.70) Sodium Level 143 mmol/L (136-145) Potassium Level 3.1 mmol/L (3.5-5.1) Chloride Level 106 mmol/L (98-107) Carbon Dioxide Level 29 mmol/L (21-32) Anion Gap 8 (6-14) Blood Urea Nitrogen 9 mg/dL (7-20) Creatinine 0.8 mg/dL (0.6-1.0) Estimated GFR (Cockcroft-Gault) 82.3 Glucose Level 150 mg/dL (70-99) Calcium Level 8.0 mg/dL (8.5-10.1) Phosphorus Level 3.1 mg/dL (2.6-4.7) Albumin 2.2 g/dL (3.4-5.0) Microbiology Micro Microbiology 02/22/19 Blood Culture - Preliminary, Resulted NO GROWTH AFTER 2 DAYS 02/22/19 Urine Culture - Preliminary, Resulted 02/22/19 Urine Culture Result 1 (JIN) - Preliminary, Resulted Physical Exam HEENT: Neck Supple W Full Motion Chest: Symmetric LUNGS: Other (basilar crackles) Heart: S1S2, RRR (SR RBBB) Abdomen: Soft N/T Extremities: No Calf Tenderness Neurology: alert, oriented, follow commands Assessment Assessment 1. Sepsis/shock: UTI. Pneumonia? 2. NSTEMI: Trop 12. EF and WM nml. EKG with RBBB. No known hx of CAD. CP free. 3. Mild Colonic ileus: GI following 4. PAD: with prior fempop and CEA 5. hx of HTN 6. Valvular insufficiency: Mild AI, mild to mod MR, Mild TR Recommendations 1. Levophed, Titrate off dopamine. IVF. Continue with heparin drip. Antibiotics per PCP 2. ASA. Replace K 3. Repeat troponin, CBC, Mg. Repeat EKG 3. Ischemic workup once extracardiac issues are better RENÉ SERRANO INTERNATIONAL GUEST COORDINATOR February 25, 2019 09:20
--- NOTE | 2019-02-25 10:18 | EKG ---
[facility] [address] [place] [address] Test Date: 2019-02-25 Test Time: 10:01:37 Pat Name: BHARGAVI RODNEY Department: Room: 110 1 Gender: Honeycomb Decapper: : 1935 Requested By: RENÉ SERRANO Order Number: [id number] Reading MD: Campos Vu MD Measurements Intervals [place] Rate: P: NV: QRS: QRSD: T: QT: QTc: Interpretive Statements SR RBBB Electronically Signed On 03-24-2019 8:12:59 CDT by Campos Vu MD
--- NOTE | 2019-02-25 10:25 | PDOC ---
Subjective: Subjective: Tolerating PO, denies abd pain. Objective: Objective: No GI concerns per RN, still on Levophed. Vital Signs: Vital Signs Date Time Temp Pulse Resp B/P (MAP) Pulse Ox O2 Delivery O2 Flow Rate FiO2 02/25/19 06:00 83 20 135/75 (95) 97 Nasal Cannula 3.0 02/25/19 04:00 99.0 99.0 Labs: Laboratory Tests Test 02/24/19 10:36 02/25/19 06:40 02/25/19 07:45 Heparin Anti-Xa Act, Unfractionated 0.48 IU/mL 0.17 IU/mL Sodium Level 143 mmol/L Potassium Level 3.1 mmol/L Chloride Level 106 mmol/L Carbon Dioxide Level 29 mmol/L Anion Gap 8 Blood Urea Nitrogen 9 mg/dL Creatinine 0.8 mg/dL Estimated GFR (Cockcroft-Gault) 82.3 Glucose Level 150 mg/dL Calcium Level 8.0 mg/dL Phosphorus Level 3.1 mg/dL Troponin I Quantitative 4.942 ng/mL Albumin 2.2 g/dL URINE CULTURE Preliminary Preliminary report URINE CULTURE RES 1 Preliminary Gram negative rods BLOOD CULTURE Preliminary NO GROWTH AFTER 2 DAYS Imaging: CXR 02/24 IMPRESSION: 1. Right PICC with the tip in the superior vena cava. 2. Stable mild diffuse increased interstitial opacity suggesting interstitial infiltrate. Echocardiogram 02/24 <Conclusion> The left ventricle is normal size. Left ventricle systolic function is low normal. The Ejection Fraction is 50-55%. There is borderline concentric left ventricular hypertrophy. There is no significant aortic valvular stenosis. Doppler and Color Flow revealed trace to mild aortic regurgitation. Doppler and Color-flow revealed mild to moderate mitral regurgitation. Doppler and Color Flow revealed mild tricuspid regurgitation. There is moderate pulmonary hypertension. The PA pressure was estimated at 55 mmHg. PE: GEN: NAD LUNGS: NC HEART: RRR ABD: NABS, S/ND/NT NEURO/PSYCH: A & O 3 A/P: Hypotension, NSTEMI UTI N/v, abd pain - resolved Anemia - on Heparin and ASA -- Continue same per GI w/ PPI and Miralax. TISHA PAUL February 25, 2019 10:25
--- NOTE | 2019-02-25 10:32 | PDOC ---
[facility] PROGRESS NOTE Chief Complaint Chief Complaint Shakes and nausea and sepsis History of Present Illness History of Present Illness Patient seen and examined in the intensive care unit She is currently on IV dopamine and IV heparin Chart was reviewed Discussed with her nurse Patient appears quite ill is complaining of pain with inspiration Vitals Vitals Vital Signs Date Time Temp Pulse Resp B/P (MAP) Pulse Ox O2 Delivery O2 Flow Rate FiO2 02/25/19 08:00 Nasal Cannula 3.0 02/25/19 06:00 83 20 135/75 (95) 97 02/25/19 04:00 99.0 99.0 Physical Exam General: moderate distress Heart: Normal S1, Other (tachycardic) Lungs: Other (fine wheeze on the left) Abdomen: Normal bowel sounds Extremities: No clubbing, No cyanosis, No edema, No tenderness/swelling, Other (Decreased peripheral pulses in RUE, LUE and LLE, good pulses RLE) Skin: No rashes, No breakdown, No significant lesion Labs LABS Laboratory Tests Test 02/24/19 10:36 02/25/19 06:40 02/25/19 07:45 Heparin Anti-Xa Act, Unfractionated 0.48 IU/mL (0.30-0.70) 0.17 IU/mL (0.30-0.70) Sodium Level 143 mmol/L (136-145) Potassium Level 3.1 mmol/L (3.5-5.1) Chloride Level 106 mmol/L (98-107) Carbon Dioxide Level 29 mmol/L (21-32) Anion Gap 8 (6-14) Blood Urea Nitrogen 9 mg/dL (7-20) Creatinine 0.8 mg/dL (0.6-1.0) Estimated GFR (Cockcroft-Gault) 82.3 Glucose Level 150 mg/dL (70-99) Calcium Level 8.0 mg/dL (8.5-10.1) Phosphorus Level 3.1 mg/dL (2.6-4.7) Troponin I Quantitative 4.942 ng/mL (0.000-0.055) Albumin 2.2 g/dL (3.4-5.0) Review of Systems Review of Systems She complains of weakness and hunger Assessment and Plan Assessmemt and Plan Problems Medical Problems: (1) Septic shock Status: Acute A/P: AMI with elevated troponin (3) per cardiology will treat medically for now LLQ pain - abnormal CT segmental acute colitis, infectious, vascular, less likely IBD simply based on age. Consult GI. They have seen the patient and would like to hold on antibiotics for now. Right leg pain - relegated to right knee, also with great toe and ankle pain. Will consult PMR HTN - hold meds for hypotensive with sepsis for now . To resume soon. HLD - can continue statin SEBAS - mild likely vasomotor, will give IVF, monitor renal function COPD - nebs prn O2 per nasal cannula when necessary PAD s/p fem pop bypass - manual BP TIA with mild cognitive impairment - frequent redirection OA - sees PMR Daily labs PT OT if possible When necessary pain meds DVT prophylaxi Full code Total time 31 minutes Comment Review of Relevant I have reviewed the following items ne (where applicable) has been applied. Labs Laboratory Tests Test 02/23/19 14:48 02/23/19 19:35 02/24/19 03:00 02/24/19 05:48 Influenza Type A Antigen Negative (NEGATIVE) Influenza Type B Antigen Negative (NEGATIVE) Heparin Anti-Xa Act, Unfractionated 0.72 IU/mL (0.30-0.70) 0.63 IU/mL (0.30-0.70) Sodium Level 142 mmol/L (136-145) Potassium Level 3.7 mmol/L (3.5-5.1) Chloride Level 106 mmol/L (98-107) Carbon Dioxide Level 26 mmol/L (21-32) Anion Gap 10 (6-14) Blood Urea Nitrogen 13 mg/dL (7-20) Creatinine 0.9 mg/dL (0.6-1.0) Estimated GFR (Cockcroft-Gault) 71.8 Glucose Level 112 mg/dL (70-99) Calcium Level 7.8 mg/dL (8.5-10.1) Phosphorus Level 2.6 mg/dL (2.6-4.7) Troponin I Quantitative 12.426 ng/mL (0.000-0.055) Albumin 2.2 g/dL (3.4-5.0) Test 02/24/19 10:36 02/25/19 06:40 02/25/19 07:45 Heparin Anti-Xa Act, Unfractionated 0.48 IU/mL (0.30-0.70) 0.17 IU/mL (0.30-0.70) Sodium Level 143 mmol/L (136-145) Potassium Level 3.1 mmol/L (3.5-5.1) Chloride Level 106 mmol/L (98-107) Carbon Dioxide Level 29 mmol/L (21-32) Anion Gap 8 (6-14) Blood Urea Nitrogen 9 mg/dL (7-20) Creatinine 0.8 mg/dL (0.6-1.0) Estimated GFR (Cockcroft-Gault) 82.3 Glucose Level 150 mg/dL (70-99) Calcium Level 8.0 mg/dL (8.5-10.1) Phosphorus Level 3.1 mg/dL (2.6-4.7) Troponin I Quantitative 4.942 ng/mL (0.000-0.055) Albumin 2.2 g/dL (3.4-5.0) Laboratory Tests Test 02/24/19 10:36 02/25/19 06:40 02/25/19 07:45 Heparin Anti-Xa Act, Unfractionated 0.48 IU/mL (0.30-0.70) 0.17 IU/mL (0.30-0.70) Sodium Level 143 mmol/L (136-145) Potassium Level 3.1 mmol/L (3.5-5.1) Chloride Level 106 mmol/L (98-107) Carbon Dioxide Level 29 mmol/L (21-32) Anion Gap 8 (6-14) Blood Urea Nitrogen 9 mg/dL (7-20) Creatinine 0.8 mg/dL (0.6-1.0) Estimated GFR (Cockcroft-Gault) 82.3 Glucose Level 150 mg/dL (70-99) Calcium Level 8.0 mg/dL (8.5-10.1) Phosphorus Level 3.1 mg/dL (2.6-4.7) Troponin I Quantitative 4.942 ng/mL (0.000-0.055) Albumin 2.2 g/dL (3.4-5.0) Microbiology 02/22/19 Blood Culture - Preliminary, Resulted NO GROWTH AFTER 2 DAYS 02/22/19 Urine Culture - Preliminary, Resulted 02/22/19 Urine Culture Result 1 (JIN) - Preliminary, Resulted Medications Current Medications Sodium Chloride 1,000 ml @ 1,000 mls/hr 1X ONCE IV Last administered on 02/22/19at 21:23; Start 02/22/19 at 20:45; Stop 02/22/19 at 21:44; Status DC Acetaminophen (Tylenol) 650 mg 1X ONCE PO Last administered on 02/22/19at 21:22; Start 02/22/19 at 20:45; Stop 02/22/19 at 20:52; Status DC Piperacillin Sod/ Tazobactam Sod (Zosyn Per Pharmacy) 1 each PRN DAILY PRN MC SEE COMMENTS; Start 02/22/19 at 20:45; Stop 02/23/19 at 14:53; Status DC Piperacillin Sod/ Tazobactam Sod 3.375 gm/Sodium Chloride 50 ml @ 100 mls/hr ONCE ONCE IV Last administered on 02/22/19at 21:23; Start 02/22/19 at 21:00; Stop 02/22/19 at 21:29; Status DC Sodium Chloride 1,000 ml @ 1,000 mls/hr 1X ONCE IV Last administered on 02/22/19at 23:44; Start 02/22/19 at 23:30; Stop 02/23/19 at 00:29; Status DC Sodium Chloride 1,000 ml @ 75 mls/hr [id number] IV Last administered on 02/23/19at 07:38; Start 02/22/19 at 23:30; Stop 02/23/19 at 08:17; Status DC Iohexol (Omnipaque 300 Mg/ml) 60 ml 1X ONCE IV Last administered on 02/23/19at 00:02; Start 02/23/19 at 00:15; Stop 02/23/19 at 00:16; Status DC Info (CONTRAST GIVEN -- Rx MONITORING) 1 each PRN DAILY PRN MC SEE COMMENTS; Start 02/23/19 at 00:15; Stop 02/25/19 at 00:14; Status DC Piperacillin Sod/ Tazobactam Sod 2.25 gm/Sodium Chloride 50 ml @ 100 mls/hr Q6HRS IV Last administered on 02/23/19at 12:26; Start 02/23/19 at 06:00; Stop 02/23/19 at 14:34; Status DC Sodium Chloride 1,000 ml @ 1,000 mls/hr 1X ONCE IV ; Start 02/23/19 at 01:00; Stop 02/23/19 at 01:45; Status DC Sodium Chloride 500 ml @ 500 mls/hr 1X ONCE IV Last administered on 02/23/19at 02:07; Start 02/23/19 at 02:00; Stop 02/23/19 at 02:59; Status DC Norepinephrine Bitartrate 250 ml @ 0 mls/hr 1X ONCE IV ; Start 02/23/19 at 02:00; Stop 02/23/19 at 02:01; Status DC Sodium Chloride 500 ml @ 500 mls/hr 1X ONCE IV Last administered on 02/23/19at 06:10; Start 02/23/19 at 02:00; Stop 02/23/19 at 02:59; Status DC Norepinephrine Bitartrate 250 ml @ 1.875 mls/ hr CONT PRN IV SEE I/O RECORD Last administered on 02/25/19at 08:49; Start 02/23/19 at 03:15 Ondansetron HCl (Zofran) 4 mg PRN Q6HRS PRN IV NAUSEA/VOMITING Last administered on 02/24/19at 23:21; Start 02/23/19 at 03:15 Iohexol (Omnipaque 300 Mg/ml) 100 ml STK-MED ONCE .ROUTE ; Start 02/23/19 at 04:24; Stop 02/23/19 at 04:25; Status DC Sodium Chloride 500 ml @ 500 mls/hr 1X ONCE IV Last administered on 02/23/19at 08:28; Start 02/23/19 at 07:45; Stop 02/23/19 at 08:44; Status DC Acetaminophen (Tylenol) 650 mg PRN Q6HRS PRN PO MILD PAIN / TEMP Last administered on 02/24/19at 23:28; Start 02/23/19 at 08:15 Ringer's Solution 1,000 ml @ 100 mls/hr Q10H IV Last administered on 02/25/19at 08:45; Start 02/23/19 at 08:30 Ringer's Solution 500 ml @ 500 mls/hr 1X ONCE IV Last administered on at 09:23; Start 02/23/19 at 09:15; Stop 02/23/19 at 10:14; Status DC Dopamine HCl/ Dextrose 250 ml @ 5.749 mls/ hr CONT PRN IV SEE I/O RECORD Last administered on 02/25/19 05:11; Start 02/23/19 at 12:15 Tramadol HCl (Ultram) 50 mg PRN Q6HRS PRN PO MODERATE-SEVERE PAIN Last administered on 02/24/19 21:35; Start 02/23/19 at 12:30 Heparin Sodium (Porcine) (Heparin Sodium) 4,000 unit 1X ONCE IV Last administered on 02/23/19 13:30; Start 02/23/19 at 13:00; Stop 02/23/19 at 13:01; Status DC Heparin Sodium/ Dextrose 500 ml @ 0 mls/hr CONT PRN IV SEE I/O RECORD Last administered on 02/25/19 05:12; Start 02/23/19 at 13:00 Heparin Sodium (Porcine) (Heparin Sodium) 1,900 unit PRN Q6HRS PRN IV FOR UFH LEVEL LESS THAN 0.2 Last administered on 02/25/19 09:35; Start 02/23/19 at 13:00 Polyethylene Glycol (miraLAX PACKET) 17 gm PRN BID PRN PO CONSTIPATION Last administered on 02/23/19 14:38; Start 02/23/19 at 13:15; Stop 02/23/19 at 14:59; Status DC Info (Anti-Coagulation Monitoring By Pharmacy) 1 each PRN DAILY PRN MC SEE COMMENTS Last administered on 02/25/19 09:00; Start 02/23/19 at 13:30 Temazepam (Restoril) 15 mg PRN QHS PRN PO INSOMNIA Last administered on 02/24/19 21:34; Start 02/23/19 at 14:45 Piperacillin Sod/ Tazobactam Sod 2.25 gm/Sodium Chloride 50 ml @ 100 mls/hr Q6HRS IV ; Start 02/23/19 at 18:00; Stop 02/23/19 at 18:00; Status DC Polyethylene Glycol (miraLAX PACKET) 17 gm BID PO Last administered on 02/25/19 08:36; Start 02/23/19 at 21:00 Multi-Ingredient Ointment (Analgesic [place]) 1 mara PRN QID PRN TP MUSCLE PAIN Last administered on 5/6/19at 05:08; Start 02/23/19 at 18:00 Pantoprazole Sodium (Protonix) 40 mg DAILYAC PO Last administered on 02/25/19at 08:36; Start 02/24/19 at 17:30 Aspirin (Ecotrin) 325 mg 1X ONCE PO Last administered on 02/25/19at 09:31; Sta rt 02/25/19 at 09:15; Stop 02/25/19 at 09:16; Status DC Aspirin (Ecotrin) 81 mg [id number] PO ; Start 02/26/19 at 08:00 Potassium Chloride (Klor-Con) 40 meq 1X ONCE PO Last administered on 02/25/19at 09:32; Start 02/25/19 at 09:15; Stop 02/25/19 at 09:16; Status DC Active Scripts Active Reported Amlodipine Besylate 10 Mg Tablet 10 Mg PO DAILY Tramadol Hcl 50 Mg Tablet 50 Mg PO Q4H PRN Fish Oil 1,000 Mg Capsule ([place]-3 Fatty Acids/Fish Oil) 1 Each Capsule 1 Each PO Vitamin D3 (Cholecalciferol (Vitamin D3)) 5,000 Unit Capsule 5,000 Unit PO Acetaminophen 500 Mg Tablet 500 Mg PO Aspir 81 (Aspirin) 81 Mg Tablet.dr 81 Mg PO Hydrochlorothiazide Tablet (Hydrochlorothiazide) 25 Mg Tablet 25 Mg PO DAILY Pravastatin Sodium 40 Mg Tablet 40 Mg PO DAILY Miralax (Polyethylene Glycol 3350) 17 Gm Powd.pack 1 Pkt PO DAILY [fiber] Temazepam 30 Mg Capsule 30 Mg PO HS PRN Cozaar (Losartan Potassium) 100 Mg Tablet 100 Mg PO DAILY Vitals/I & O Vital Sign - Last 24 Hours 02/24/19 02/24/19 02/24/19 02/24/19 11:00 12:00 12:00 13:00 Temp 98.5 98.5 Pulse 72 64 72 Resp 24 21 33 B/P (MAP) 84/49 (61) 106/67 (80) 97/57 (70) Pulse Ox 96 97 98 O2 Delivery Nasal Cannula Nasal Cannula Nasal Cannula Nasal Cannula O2 Flow Rate 3.0 3.0 3.0 3.0 02/24/19 02/24/19 02/24/19 02/24/19 13:30 13:45 14:00 14:30 Pulse 66 74 68 66 Resp 33 33 33 29 B/P (MAP) 64/31 (42) 77/48 (58) 83/43 (56) 86/59 (68) Pulse Ox 97 98 97 97 O2 Delivery Nasal Cannula Nasal Cannula Nasal Cannula Nasal Cannula O2 Flow Rate 3.0 3.0 3.0 3.0 02/24/09 03/04/09/04/09/04/09 14:45 15:00 16:00 16:00 Temp 98.2 98.2 Pulse 74 68 72 Resp 29 29 29 B/P (MAP) 96/66 (76) Pulse Ox 99 94 94 O2 Delivery Nasal Cannula Nasal Cannula Nasal Cannula Nasal Cannula O2 Flow Rate 3.0 3.0 3.0 3.0 02/24/19 02/24/19 02/24/19 02/24/19 17:00 18:00 18:30 19:00 Pulse 78 80 80 81 Resp 34 33 21 22 B/P (MAP) 122/60 (80) 107/59 (75) 102/82 (89) 94/51 (65) Pulse Ox 93 95 97 94 O2 Delivery Nasal Cannula Nasal Cannula Nasal Cannula Nasal Cannula O2 Flow Rate 3.0 3.0 3.0 3.0 02/24/19 02/24/1902/24/02/24/19 20:00 20:00 21:00 21:35 Temp 98.6 98.6 Pulse 86 84 Resp 20 16 18 B/P (MAP) 107/54 (71) 113/51 (71) Pulse Ox 95 96 O2 Delivery Nasal Cannula Nasal Cannula Nasal Cannula Nasal Cannula O2 Flow Rate 3.0 3.0 3.0 3.0 02/24/19 02/24/19 02/24/19 02/25/19 22:00 23:00 23:59 00:00 Temp 100.8 100.8 Pulse 93 84 93 Resp 18 20 24 B/P (MAP) 96/55 (69) 123/61 (81) 127/64 (85) Pulse Ox 95 95 94 O2 Delivery Nasal Cannula Nasal Cannula Nasal Cannula Nasal Cannula O2 Flow Rate 3.0 3.0 3.0 3.0 02/25/19 02/25/19 02/25/19 02/25/19 00:15 01:00 02:00 03:00 Temp 99.7 99.7 Pulse 98 86 77 74 Resp 26 14 20 B/P (MAP) 131/60 (83) 106/56 (73) 103/57 (72) 104/55 (71) Pulse Ox 94 93 94 O2 Delivery Nasal Cannula Nasal Cannula Nasal Cannula O2 Flow Rate 3.0 3.0 3.0 02/25/19 02/25/19 02/25/19 02/25/19 04:00 04:00 05:00 06:00 Temp 99.0 99.0 Pulse 73 83 83 Resp 22 17 20 B/P (MAP) 124/50 (74) 122/65 (84) 135/75 (95) Pulse Ox 95 98 97 O2 Delivery Nasal Cannula Nasal Cannula Nasal Cannula Nasal Cannula O2 Flow Rate 3.0 3.0 3.0 3.0 02/25/19 08:00 O2 Delivery Nasal Cannula O2 Flow Rate 3.0 Intake and Output 02/24/19 02/24/19 02/25/19 15:00 23:00 07:00 Intake Total 122.89 ml 2190.59 ml 1761.48 ml Output Total 935 ml 1925 ml 1990 ml Balance -812.11 ml 265.59 ml -228.52 ml JUNG AYALA III DO February 25, 2019 10:32
[2019-02-25 10:40] LABS: MAGNESIUM 1.1 mg/dL (1.8-2.4)
[2019-02-25] MEDS ORDERED: MAGNESIUM SULFATE 4GM 100 ML IV ONE (11:30)
[2019-02-25] MEDS ORDERED: PIP/TAZO PER PHARMACY MC PRN (16:45)
[2019-02-25] MEDS: PIPERACILLIN/TAZOBACTAM 2.25 GM in IV NORMAL SALINE 50ML 50 ML IV SCH (17:11)
[2019-02-25] MEDS: TEMAZEPAM 15 MG CAPSULE PO PRN (21:17)
[2019-02-25] MEDS: traMADol 50 MG TABLET PO PRN (23:11)
[2019-02-26] VITALS (27 sets, daily range): BP systolic 84–147; BP diastolic 41–83
[2019-02-26] MEDS: PIPERACILLIN/TAZOBACTAM 2.25 GM in IV NORMAL SALINE 50ML 50 ML IV SCH ×4 (00:01→16:38)
[2019-02-26] MEDS: ACETAMINOPHEN 325 MG TABLET. PO PRN (00:05)
[2019-02-26] MEDS: IV RINGERS,LACTATED 1000ML 1,000 ML IV SCH ×3 (03:44→16:39)
[2019-02-26 08:00] LABS: BASO # 0.1 x10^3/uL (0.0-0.2); BASO % 1 % (0-3); EOS # 0.3 x10^3/uL (0.0-0.7); EOS % 4 % (0-3); HEMATOCRIT 30.6 % (36.0-47.0); LYMPH # 2.1 x10^3/uL (1.0-4.8); LYMPH % 25 % (24-48); MEAN CORPUSCULAR HEMOGLOBIN 32 pg (25-35); MEAN CORPUSCULAR HGB CONC 33 g/dL (31-37); MEAN CORPUSCULAR VOLUME 96 fL (79-100); MONO # 0.8 x10^3/uL (0.0-1.1); MONO % 10 % (0-9); NEUT # 4.9 x10^3uL (1.8-7.7); NEUT % 60 % (31-73); PLATELET COUNT 222 x10^3/uL (140-400); RED BLOOD COUNT 3.19 x10^6/uL (3.50-5.40); RED CELL DISTRIBUTION WIDTH 14.1 % (11.5-14.5); WHITE BLOOD COUNT 8.3 x10^3/uL (4.0-11.0)
[2019-02-26] MEDS: ANTI-COAG MONITOR BY PHARMACY. MC PRN (08:00)
[2019-02-26 08:22] LABS: CALCIUM 8.6 mg/dL (8.5-10.1); GFR 63.6; POTASSIUM 4.2 mmol/L (3.5-5.1)
[2019-02-26] MEDS: POLYETHYLENE GLYCOL 3350 17 GM PACKET. PO SCH ×2 (08:59→21:33)
[2019-02-26] MEDS: ASPIRIN ENTERIC COATED 81 MG TABLET.DR. PO SCH (08:59)
[2019-02-26] MEDS: PANTOPRAZOLE 40 MG TABLET.DR. PO SCH (08:59)
[2019-02-26] MEDS: traMADol 50 MG TABLET PO PRN ×2 (09:00→21:33)
[2019-02-26] MEDS: NOREPINEPHRIN 8MG/250ML PREMIX 250 ML IV PRN (09:00)
--- NOTE | 2019-02-26 09:16 | PDOC ---
PROGRESS NOTES Subjective Subjective She admits back pain last night. Objective Objective Vital Signs Date Time Temp Pulse Resp B/P (MAP) Pulse Ox O2 Delivery O2 Flow Rate FiO2 02/26/19 09:00 97 Nasal Cannula 2.0 02/26/19 06:00 86 18 134/61 (85) 02/26/19 04:00 98.6 98.6 Intake and Output 02/26/19 07:00 Intake Total 4841.44 ml Output Total 2496 ml Balance 2345.44 ml Intake Oral 1197 ml IV Total 3644.44 ml Output Urine Total 2496 ml Physical Exam Physical Exam She is alert,eating breakfast in bed and no tenderness to palpation over thoracolumbar area. She continues with crepitus on ROM of her knees with some effusion. Assessment Assessment Problems Medical Problems: (1) Septic shock Status: Acute Plan Plan of Care To continue present care efforts as tolerated and to consider injecting her knees if knee joint pain is interfering with her mobility. Comment Review of Relevant I have reviewed the following items ne (where applicable) has been applied. Labs Laboratory Tests Test 02/24/19 10:36 02/25/19 06:40 02/25/19 07:45 02/25/19 15:15 Heparin Anti-Xa Act, Unfractionated 0.48 IU/mL (0.30-0.70) 0.17 IU/mL (0.30-0.70) 0.77 IU/mL (0.30-0.70) Sodium Level 143 mmol/L (136-145) Potassium Level 3.1 mmol/L (3.5-5.1) Chloride Level 106 mmol/L (98-107) Carbon Dioxide Level 29 mmol/L (21-32) Anion Gap 8 (6-14) Blood Urea Nitrogen 9 mg/dL (7-20) Creatinine 0.8 mg/dL (0.6-1.0) Estimated GFR (Cockcroft-Gault) 82.3 Glucose Level 150 mg/dL (70-99) Calcium Level 8.0 mg/dL (8.5-10.1) Phosphorus Level 3.1 mg/dL (2.6-4.7) Magnesium Level 1.1 mg/dL (1.8-2.4) Troponin I Quantitative 4.942 ng/mL (0.000-0.055) Albumin 2.2 g/dL (3.4-5.0) Triglycerides Level 82 mg/dL (0-150) Cholesterol Level 111 mg/dL (0-200) LDL Cholesterol, Calculated 58 mg/dL (0-100) VLDL Cholesterol, Calculated 16 mg/dL (0-40) Non-HDL Cholesterol Calculated 74 mg/dL (0-129) HDL Cholesterol 37 mg/dL (40-60) Cholesterol/HDL Ratio 3.0 Test 02/25/19 23:15 02/26/19 07:45 Heparin Anti-Xa Act, Unfractionated 0.38 IU/mL (0.30-0.70) 0.52 IU/mL (0.30-0.70) White Blood Count 8.3 x10^3/uL (4.0-11.0) Red Blood Count 3.19 x10^6/uL (3.50-5.40) Hemoglobin 10.0 g/dL (12.0-15.5) Hematocrit 30.6 % (36.0-47.0) Mean Corpuscular Volume 96 fL (79-100) Mean Corpuscular Hemoglobin 32 pg (25-35) Mean Corpuscular Hemoglobin Concent 33 g/dL (31-37) Red Cell Distribution Width 14.1 % (11.5-14.5) Platelet Count 222 x10^3/uL (140-400) Neutrophils (%) (Auto) 60 % (31-73) Lymphocytes (%) (Auto) 25 % (24-48) Monocytes (%) (Auto) 10 % (0-9) Eosinophils (%) (Auto) 4 % (0-3) Basophils (%) (Auto) 1 % (0-3) Neutrophils # (Auto) 4.9 x10^3uL (1.8-7.7) Lymphocytes # (Auto) 2.1 x10^3/uL (1.0-4.8) Monocytes # (Auto) 0.8 x10^3/uL (0.0-1.1) Eosinophils # (Auto) 0.3 x10^3/uL (0.0-0.7) Basophils # (Auto) 0.1 x10^3/uL (0.0-0.2) Sodium Level 144 mmol/L (136-145) Potassium Level 4.2 mmol/L (3.5-5.1) Chloride Level 108 mmol/L (98-107) Carbon Dioxide Level 29 mmol/L (21-32) Anion Gap 7 (6-14) Blood Urea Nitrogen 13 mg/dL (7-20) Creatinine 1.0 mg/dL (0.6-1.0) Estimated GFR (Cockcroft-Gault) 63.6 Glucose Level 111 mg/dL (70-99) Calcium Level 8.6 mg/dL (8.5-10.1) Laboratory Tests Test 02/25/19 15:15 02/25/19 23:15 02/26/19 07:45 Heparin Anti-Xa Act, Unfractionated 0.77 IU/mL (0.30-0.70) 0.38 IU/mL (0.30-0.70) 0.52 IU/mL (0.30-0.70) White Blood Count 8.3 x10^3/uL (4.0-11.0) Red Blood Count 3.19 x10^6/uL (3.50-5.40) Hemoglobin 10.0 g/dL (12.0-15.5) Hematocrit 30.6 % (36.0-47.0) Mean Corpuscular Volume 96 fL (79-100) Mean Corpuscular Hemoglobin 32 pg (25-35) Mean Corpuscular Hemoglobin Concent 33 g/dL (31-37) Red Cell Distribution Width 14.1 % (11.5-14.5) Platelet Count 222 x10^3/uL (140-400) Neutrophils (%) (Auto) 60 % (31-73) Lymphocytes (%) (Auto) 25 % (24-48) Monocytes (%) (Auto) 10 % (0-9) Eosinophils (%) (Auto) 4 % (0-3) Basophils (%) (Auto) 1 % (0-3) Neutrophils # (Auto) 4.9 x10^3uL (1.8-7.7) Lymphocytes # (Auto) 2.1 x10^3/uL (1.0-4.8) Monocytes # (Auto) 0.8 x10^3/uL (0.0-1.1) Eosinophils # (Auto) 0.3 x10^3/uL (0.0-0.7) Basophils # (Auto) 0.1 x10^3/uL (0.0-0.2) Sodium Level 144 mmol/L (136-145) Potassium Level 4.2 mmol/L (3.5-5.1) Chloride Level 108 mmol/L (98-107) Carbon Dioxide Level 29 mmol/L (21-32) Anion Gap 7 (6-14) Blood Urea Nitrogen 13 mg/dL (7-20) Creatinine 1.0 mg/dL (0.6-1.0) Estimated GFR (Cockcroft-Gault) 63.6 Glucose Level 111 mg/dL (70-99) Calcium Level 8.6 mg/dL (8.5-10.1) Microbiology 02/22/19 Blood Culture - Preliminary, Resulted NO GROWTH AFTER 3 DAYS 02/22/19 Urine Culture - Final, Complete 02/22/19 Urine Culture Result 1 (JIN) - Final, Complete 02/22/19 Antimicrobic Susceptibility - Final, Complete Medications Current Medications Sodium Chloride 1,000 ml @ 1,000 mls/hr 1X ONCE IV Last administered on 02/22/19at 21:23; Start 02/22/19 at 20:45; Stop 02/22/19 at 21:44; Status DC Acetaminophen (Tylenol) 650 mg 1X ONCE PO Last administered on 02/22/19at 21:22; Start 02/22/19 at 20:45; Stop 02/22/19 at 20:52; Status DC Piperacillin Sod/ Tazobactam Sod (Zosyn Per Pharmacy) 1 each PRN DAILY PRN MC SEE COMMENTS; Start 02/22/19 at 20:45; Stop 02/23/19 at 14:53; Status DC Piperacillin Sod/ Tazobactam Sod 3.375 gm/Sodium Chloride 50 ml @ 100 mls/hr ONCE ONCE IV Last administered on 02/22/19at 21:23; Start 02/22/19 at 21:00; Stop 02/22/19 at 21:29; Status DC Sodium Chloride 1,000 ml @ 1,000 mls/hr 1X ONCE IV Last administered on 02/22/19at 23:44; Start 02/22/19 at 23:30; Stop 02/23/19 at 00:29; Status DC Sodium Chloride 1,000 ml @ 75 mls/hr [id number] IV Last administered on 02/23/19at 07:38; Start 02/22/19 at 23:30; Stop 02/23/19 at 08:17; Status DC Iohexol (Omnipaque 300 Mg/ml) 60 ml 1X ONCE IV Last administered on 02/23/19at 00:02; Start 02/23/19 at 00:15; Stop 02/23/19 at 00:16; Status DC Info (CONTRAST GIVEN -- Rx MONITORING) 1 each PRN DAILY PRN MC SEE COMMENTS; Start 02/23/19 at 00:15; Stop 02/25/19 at 00:14; Status DC Piperacillin Sod/ Tazobactam Sod 2.25 gm/Sodium Chloride 50 ml @ 100 mls/hr Q6HRS IV Last administered on 02/23/19at 12:26; Start 02/23/19 at 06:00; Stop 02/23/19 at 14:34; Status DC Sodium Chloride 1,000 ml @ 1,000 mls/hr 1X ONCE IV ; Start 02/23/19 at 01:00; Stop 02/23/19 at 01:45; Status DC Sodium Chloride 500 ml @ 500 mls/hr 1X ONCE IV Last administered on 02/23/19at 02:07; Start 02/23/19 at 02:00; Stop 02/23/19 at 02:59; Status DC Norepinephrine Bitartrate 250 ml @ 0 mls/hr 1X ONCE IV ; Start 02/23/19 at 02:00; Stop 02/23/19 at 02:01; Status DC Sodium Chloride 500 ml @ 500 mls/hr 1X ONCE IV Last administered on 02/23/19at 06:10; Start 02/23/19 at 02:00; Stop 02/23/19 at 02:59; Status DC Norepinephrine Bitartrate 250 ml @ 1.875 mls/ hr CONT PRN IV SEE I/O RECORD Last administered on 02/26/19at 09:00; Start 02/23/19 at 03:15 Ondansetron HCl (Zofran) 4 mg PRN Q6HRS PRN IV NAUSEA/VOMITING Last administered on 02/24/19at 23:21; Start 02/23/19 at 03:15 Iohexol (Omnipaque 300 Mg/ml) 100 ml STK-MED ONCE .ROUTE ; Start 02/23/19 at 04:24; Stop 02/23/19 at 04:25; Status DC Sodium Chloride 500 ml @ 500 mls/hr 1X ONCE IV Last administered on 02/23/19at 08:28; Start 02/23/19 at 07:45; Stop 02/23/19 at 08:44; Status DC Acetaminophen (Tylenol) 650 mg PRN Q6HRS PRN PO MILD PAIN / TEMP Last administered on 02/26/19at 00:05; Start 02/23/19 at 08:15 Ringer's Solution 1,000 ml @ 100 mls/hr Q10H IV Last administered on 02/26/19 06:30; Start 02/23/19 at 08:30 Ringer's Solution 500 ml @ 500 mls/hr 1X ONCE IV Last administered on 02/23/19 09:23; Start 02/23/19 at 09:15; Stop 02/23/19 at 10:14; Status DC Dopamine HCl/ Dextrose 250 ml @ 5.749 mls/ hr CONT PRN IV SEE I/O RECORD Last administered on 02/25/19at 05:11; Start 02/23/19 at 12:15 Tramadol HCl (Ultram) 50 mg PRN Q6HRS PRN PO MODERATE-SEVERE PAIN Last administered on 02/26/19 09:00; Start 02/23/19 at 12:30 Heparin Sodium (Porcine) (Heparin Sodium) 4,000 unit 1X ONCE IV Last administered on 02/23/19 13:30; Start 02/23/19 at 13:00; Stop 02/23/19 at 13:01; Status DC Heparin Sodium/ Dextrose 500 ml @ 0 mls/hr CONT PRN IV SEE I/O RECORD Last administered on 02/25/19 05:12; Start 02/23/19 at 13:00 Heparin Sodium (Porcine) (Heparin Sodium) 1,900 unit PRN Q6HRS PRN IV FOR UFH LEVEL LESS THAN 0.2 Last administered on 02/25/19 09:35; Start 02/23/19 at 13:00 Polyethylene Glycol (miraLAX PACKET) 17 gm PRN BID PRN PO CONSTIPATION Last administered on 02/23/19 14:38; Start 02/23/19 at 13:15; Stop 02/23/19 at 14:59; Status DC Info (Anti-Coagulation Monitoring By Pharmacy) 1 each PRN DAILY PRN MC SEE COMMENTS Last administered on 02/26/19 08:00; Start 02/23/19 at 13:30 Temazepam (Restoril) 15 mg PRN QHS PRN PO INSOMNIA Last administered on 02/25/19 21:17; Start 02/23/19 at 14:45 Piperacillin Sod/ Tazobactam Sod 2.25 gm/Sodium Chloride 50 ml @ 100 mls/hr Q6HRS IV ; Start 02/23/19 at 18:00; Stop 02/23/19 at 18:00; Status DC Polyethylene Glycol (miraLAX PACKET) 17 gm BID PO Last administered on 02/26/19 08:59; Start 02/23/19 at 21:00 Multi-Ingredient Ointment (Analgesic Yellow Jacket) 1 mara PRN QID PRN TP MUSCLE PAIN Last administered on 02/24/19at 05:08; Start 02/23/19 at 18:00 Pantoprazole Sodium (Protonix) 40 mg DAILYAC PO Last administered on 02/26/19 08:59; Start 02/24/19 at 17:30 Aspirin (Ecotrin) 325 mg 1X ONCE PO Last administered on 02/25/19 09:31; S tart 02/25/19 at 09:15; Stop 02/25/19 at 09:16; Status DC Aspirin (Ecotrin) 81 mg DAILYWBKFT PO Last administered on 02/26/19 08:59; Start 02/26/19 at 08:00 Potassium Chloride (Klor-Con) 40 meq 1X ONCE PO Last administered on 02/25/19at 09:32; Start 02/25/19 at 09:15; Stop 02/25/19 at 09:16; Status DC Magnesium Sulfate/ Dextrose 100 ml @ 25 mls/hr 1X ONCE IV Last administered on 02/25/19at 11:49; Start 02/25/19 at 11:30; Stop 02/25/19 at 15:29; Status DC Piperacillin Sod/ Tazobactam Sod (Zosyn Per Pharmacy) 1 each PRN DAILY PRN MC SEE COMMENTS; Start 02/25/19 at 16:45 Piperacillin Sod/ Tazobactam Sod 2.25 gm/Sodium Chloride 50 ml @ 100 mls/hr Q6HRS IV Last administered on 02/26/19at 09:00; Start 02/25/19 at 18:00 Active Scripts Active Reported Amlodipine Besylate 10 Mg Tablet 10 Mg PO DAILY Tramadol Hcl 50 Mg Tablet 50 Mg PO Q4H PRN Fish Oil 1,000 Mg Capsule (Coolin-3 Fatty Acids/Fish Oil) 1 Each Capsule 1 Each PO Vitamin D3 (Cholecalciferol (Vitamin D3)) 5,000 Unit Capsule 5,000 Unit PO Acetaminophen 500 Mg Tablet 500 Mg PO Aspir 81 (Aspirin) 81 Mg Tablet.dr 81 Mg PO Hydrochlorothiazide Tablet (Hydrochlorothiazide) 25 Mg Tablet 25 Mg PO DAILY Pravastatin Sodium 40 Mg Tablet 40 Mg PO DAILY Miralax (Polyethylene Glycol 3350) 17 Gm Powd.pack 1 Pkt PO DAILY [fiber] Temazepam 30 Mg Capsule 30 Mg PO HS PRN Cozaar (Losartan Potassium) 100 Mg Tablet 100 Mg PO DAILY Vitals/I & O Vital Sign - Last 24 Hours 02/25/19 02/25/19 02/25/19 02/25/19 09:30 10:00 10:30 11:00 Pulse 70 72 66 70 Resp 24 27 20 26 B/P (MAP) 131/59 (83) 114/57 (76) 120/51 (74) 133/59 (83) Pulse Ox 98 98 97 98 O2 Delivery Nasal Cannula Nasal Cannula Nasal Cannula Nasal Cannula O2 Flow Rate 3.0 3.0 3.0 3.0 02/25/19 02/25/19 02/25/19 02/25/19 12:00 12:00 13:00 14:00 Temp 98.7 98.7 Pulse 72 66 60 Resp 24 23 23 B/P (MAP) 107/71 (83) 113/57 (75) 124/57 (79) Pulse Ox 98 100 100 O2 Delivery Nasal Cannula Nasal Cannula Nasal Cannula Nasal Cannula O2 Flow Rate 3.0 3.0 3.0 3.0 02/25/19 02/25/19 02/25/19 02/25/19 15:00 16:00 16:00 16:00 Temp 98.2 98.2 Pulse 62 64 Resp 26 23 B/P (MAP) 101/45 (63) 79/45 (56) Pulse Ox 100 100 O2 Delivery Nasal Cannula Nasal Cannula Nasal Cannula O2 Flow Rate 3.0 3.0 3.0 02/25/19 02/25/19 02/25/19 02/25/19 17:00 18:00 19:00 20:00 Pulse 60 70 56 Resp 25 21 18 B/P (MAP) 100/46 (64) 105/52 (69) 102/48 (66) Pulse Ox 100 100 98 O2 Delivery Nasal Cannula Nasal Cannula Nasal Cannula Nasal Cannula O2 Flow Rate 3.0 3.0 3.0 3.0 02/25/19 02/25/19 02/25/19 02/25/19 20:00 21:00 21:15 21:30 Temp 98.7 98.7 Pulse 69 63 63 66 Resp 18 22 B/P (MAP) 133/64 (87) 141/59 (86) 140/65 (90) 148/63 (91) Pulse Ox 99 92 O2 Delivery Nasal Cannula Nasal Cannula O2 Flow Rate 3.0 3.0 02/25/19 02/25/19 02/25/19 02/25/19 22:00 22:15 23:00 23:11 Pulse 66 66 65 Resp 22 B/P (MAP) 132/46 (74) 125/51 (75) 112/48 (69) Pulse Ox 98 100 97 O2 Delivery Nasal Cannula Nasal Cannula Nasal Cannula O2 Flow Rate 3.0 3.0 2.0 02/25/19 02/26/19 02/26/19 02/26/19 23:59 00:00 00:11 01:00 Temp 98.8 98.8 Pulse 86 84 Resp 24 20 20 B/P (MAP) 134/56 (82) 95/44 (61) Pulse Ox 100 97 O2 Delivery Nasal Cannula Nasal Cannula Nasal Cannula Nasal Cannula O2 Flow Rate 3.0 3.0 2.0 2.0 02/26/19 02/26/19 02/26/19 02/26/19 02:00 03:00 03:45 04:00 Temp 98.6 98.6 Pulse 63 85 97 95 Resp 24 B/P (MAP) 98/41 (60) 94/42 (59) 84/55 (65) 97/57 (70) Pulse Ox 98 98 96 O2 Delivery Nasal Cannula Nasal Cannula Nasal Cannula O2 Flow Rate 2.0 2.0 2.0 02/26/19 02/26/19 02/26/19 02/26/19 04:00 05:00 06:00 09:00 Pulse 96 86 Resp 22 18 B/P (MAP) 113/51 (71) 134/61 (85) Pulse Ox 97 97 97 O2 Delivery Nasal Cannula Nasal Cannula Nasal Cannula Nasal Cannula O2 Flow Rate 2.0 2.0 2.0 2.0 Intake and Output 02/25/19 02/25/19 02/26/19 15:00 23:00 07:00 Intake Total 688.11 ml 1854.91 ml 2298.42 ml Output Total 750 ml 586 ml 1160 ml Balance -61.89 ml 1268.91 ml 1138.42 ml Nutrition Consultation Dietary Evaluation: Recommendations by RD: Increase Calorie Intake, Protein supplementation Comments: Continue w/GI soft/cardiac diet as ordered, honor food preferences, and provide snacks as requested REC Ensure (strawberry) w/lunch trays Expected Outcomes/Goals: PO intake to meet >75% est needs Malnutrition Findings: Food and Nutrition Intake (Mod: <75% est energy req 7days Weight Status: Appropriate ERIN PRIETO MD February 26, 2019 09:16
--- NOTE | 2019-02-26 09:47 | PDOC ---
Subjective: Subjective: Concerned w/ h/o constipation at home and last stool on Sunday here - on Miralax BID. Tolerating PO, no abd pain. RN present - ?titrate levophed today Objective: Vital Signs: Vital Signs Date Time Temp Pulse Resp B/P (MAP) Pulse Ox O2 Delivery O2 Flow Rate FiO2 02/26/19 09:00 97 Nasal Cannula 2.0 02/26/19 06:00 86 18 134/61 (85) 02/26/19 04:00 98.6 98.6 Labs: Laboratory Tests Test 02/25/19 15:15 02/25/19 23:15 02/26/19 07:45 Heparin Anti-Xa Act, Unfractionated 0.77 IU/mL 0.38 IU/mL 0.52 IU/mL White Blood Count 8.3 x10^3/uL Red Blood Count 3.19 x10^6/uL Hemoglobin 10.0 g/dL Hematocrit 30.6 % Mean Corpuscular Volume 96 fL Mean Corpuscular Hemoglobin 32 pg Mean Corpuscular Hemoglobin Concent 33 g/dL Red Cell Distribution Width 14.1 % Platelet Count 222 x10^3/uL Neutrophils (%) (Auto) 60 % Lymphocytes (%) (Auto) 25 % Monocytes (%) (Auto) 10 % Eosinophils (%) (Auto) 4 % Basophils (%) (Auto) 1 % Neutrophils # (Auto) 4.9 x10^3uL Lymphocytes # (Auto) 2.1 x10^3/uL Monocytes # (Auto) 0.8 x10^3/uL Eosinophils # (Auto) 0.3 x10^3/uL Basophils # (Auto) 0.1 x10^3/uL Sodium Level 144 mmol/L Potassium Level 4.2 mmol/L Chloride Level 108 mmol/L Carbon Dioxide Level 29 mmol/L Anion Gap 7 Blood Urea Nitrogen 13 mg/dL Creatinine 1.0 mg/dL Estimated GFR (Cockcroft-Gault) 63.6 Glucose Level 111 mg/dL Calcium Level 8.6 mg/dL PE: GEN: NAD, eating potatoes LUNGS: NC HEART: tachycardic ABD: NABS, S/ND/NT NEURO/PSYCH: A & O 3 A/P: Hypotension, NSTEMI, UTI H/o constipation - on Miralax BID Anemia - on Heparin and ASA, also PPI -- Continue Miralax, try Dulcolax, consider Linzess (though I think not on formulary here) or similar (Amitiza). Reviewed w/ Dr. Briggs - will follow peripherally, please call with questions. TISHA PAUL February 26, 2019 09:46
[2019-02-26] MEDS ORDERED: BISACODYL 5 MG TABLET.DR. PO ONE (10:00)
--- NOTE | 2019-02-26 12:02 | PDOC ---
CARDIO Progress Notes Date and Time Date of Service 02/26/2019 Time of Evaluation 1200 Subjective Subjective: No Chest Pain, No shortness of breath, No Palpitations Vitals Vitals Vital Signs Date Time Temp Pulse Resp B/P (MAP) Pulse Ox O2 Delivery O2 Flow Rate FiO2 02/26/19 11:40 Nasal Cannula 2.0 02/26/19 11:00 64 18 131/72 (91) 97 02/26/19 07:00 98.2 98.2 Weight Weight [ ] Input and Output Intake and Output Intake and Output 02/26/19 07:00 Intake Total 4841.44 ml Output Total 2546 ml Balance 2295.44 ml Intake Oral 1197 ml IV Total 3644.44 ml Output Urine Total 2546 ml Laboratory Labs Laboratory Tests Test 02/25/19 15:15 02/25/19 23:15 02/26/19 07:45 Heparin Anti-Xa Act, Unfractionated 0.77 IU/mL (0.30-0.70) 0.38 IU/mL (0.30-0.70) 0.52 IU/mL (0.30-0.70) White Blood Count 8.3 x10^3/uL (4.0-11.0) Red Blood Count 3.19 x10^6/uL (3.50-5.40) Hemoglobin 10.0 g/dL (12.0-15.5) Hematocrit 30.6 % (36.0-47.0) Mean Corpuscular Volume 96 fL (79-100) Mean Corpuscular Hemoglobin 32 pg (25-35) Mean Corpuscular Hemoglobin Concent 33 g/dL (31-37) Red Cell Distribution Width 14.1 % (11.5-14.5) Platelet Count 222 x10^3/uL (140-400) Neutrophils (%) (Auto) 60 % (31-73) Lymphocytes (%) (Auto) 25 % (24-48) Monocytes (%) (Auto) 10 % (0-9) Eosinophils (%) (Auto) 4 % (0-3) Basophils (%) (Auto) 1 % (0-3) Neutrophils # (Auto) 4.9 x10^3uL (1.8-7.7) Lymphocytes # (Auto) 2.1 x10^3/uL (1.0-4.8) Monocytes # (Auto) 0.8 x10^3/uL (0.0-1.1) Eosinophils # (Auto) 0.3 x10^3/uL (0.0-0.7) Basophils # (Auto) 0.1 x10^3/uL (0.0-0.2) Sodium Level 144 mmol/L (136-145) Potassium Level 4.2 mmol/L (3.5-5.1) Chloride Level 108 mmol/L (98-107) Carbon Dioxide Level 29 mmol/L (21-32) Anion Gap 7 (6-14) Blood Urea Nitrogen 13 mg/dL (7-20) Creatinine 1.0 mg/dL (0.6-1.0) Estimated GFR (Cockcroft-Gault) 63.6 Glucose Level 111 mg/dL (70-99) Calcium Level 8.6 mg/dL (8.5-10.1) Microbiology Micro Microbiology 02/22/19 Blood Culture - Preliminary, Resulted NO GROWTH AFTER 3 DAYS 02/22/19 Urine Culture - Final, Complete 02/22/19 Urine Culture Result 1 (JIN) - Final, Complete 02/22/19 Antimicrobic Susceptibility - Final, Complete Physical Exam HEENT: Neck Supple W Full Motion Chest: Symmetric LUNGS: Other (basilar crackles) Heart: S1S2, RRR (SR RBBB) Abdomen: Soft N/T Extremities: No Calf Tenderness, Other (trace LE edema) Neurology: alert, oriented, follow commands Assessment Assessment 1. Sepsis/shock: UTI. Pneumonia? notable for pleuritic pain. 2. NSTEMI: Trop 12. Possibly type 2. EF and WM nml. EKG with RBBB. No known hx of CAD. 3. Mild Colonic ileus: GI following 4. PAD: with prior fempop and CEA 5. hx of HTN 6. Valvular insufficiency: Mild AI, mild to mod MR, Mild TR Recommendations 1. Continue with IVF and will try to titrate off levophed. Once off pressor and BP is adequate then will start on BB 2. ASA. Replace K and Mg as warranted. DC heparin 3. Antibiotics per PCP. 3. Ischemic workup once extracardiac issues are better. RENÉ SERRANO APRN February 26, 2019 12:02
[2019-02-26] MEDS ORDERED: methylPREDNISolone ACETATE 40 MG/ML VIAL. IM ONE (12:15)
[2019-02-26] MEDS ORDERED: BUPIVACAINE MPF 0.25% 10 ML VIAL. IJ ONE (12:15)
--- NOTE | 2019-02-26 13:35 | PDOC ---
[employer] PROGRESS NOTE Chief Complaint Chief Complaint Shakes and nausea and sepsis Elevated troponin History of Present Illness History of Present Illness Patient seen and examined in the intensive care unit Discussed with nurse practitioner for cardiology She is currently on IV levothyroxine and IV heparin Chart was reviewed Discussed with her nurse Patient appears quite ill is complaining of pain with inspiration Also complains of her eyes itching Vitals Vitals Vital Signs Date Time Temp Pulse Resp B/P (MAP) Pulse Ox O2 Delivery O2 Flow Rate FiO2 02/26/19 11:40 Nasal Cannula 2.0 02/26/19 11:00 64 18 131/72 (91) 97 02/26/19 07:00 98.2 98.2 Physical Exam General: moderate distress Heart: Normal S1, Other (tachycardic) Lungs: Other (fine wheeze on the left) Abdomen: Normal bowel sounds Extremities: No clubbing, No cyanosis, No edema, No tenderness/swelling, Other (Decreased peripheral pulses in RUE, LUE and LLE, good pulses RLE) Skin: No rashes, No breakdown, No significant lesion Labs LABS Laboratory Tests Test 02/25/19 15:15 02/25/19 23:15 02/26/19 07:45 Heparin Anti-Xa Act, Unfractionated 0.77 IU/mL (0.30-0.70) 0.38 IU/mL (0.30-0.70) 0.52 IU/mL (0.30-0.70) White Blood Count 8.3 x10^3/uL (4.0-11.0) Red Blood Count 3.19 x10^6/uL (3.50-5.40) Hemoglobin 10.0 g/dL (12.0-15.5) Hematocrit 30.6 % (36.0-47.0) Mean Corpuscular Volume 96 fL (79-100) Mean Corpuscular Hemoglobin 32 pg (25-35) Mean Corpuscular Hemoglobin Concent 33 g/dL (31-37) Red Cell Distribution Width 14.1 % (11.5-14.5) Platelet Count 222 x10^3/uL (140-400) Neutrophils (%) (Auto) 60 % (31-73) Lymphocytes (%) (Auto) 25 % (24-48) Monocytes (%) (Auto) 10 % (0-9) Eosinophils (%) (Auto) 4 % (0-3) Basophils (%) (Auto) 1 % (0-3) Neutrophils # (Auto) 4.9 x10^3uL (1.8-7.7) Lymphocytes # (Auto) 2.1 x10^3/uL (1.0-4.8) Monocytes # (Auto) 0.8 x10^3/uL (0.0-1.1) Eosinophils # (Auto) 0.3 x10^3/uL (0.0-0.7) Basophils # (Auto) 0.1 x10^3/uL (0.0-0.2) Sodium Level 144 mmol/L (136-145) Potassium Level 4.2 mmol/L (3.5-5.1) Chloride Level 108 mmol/L (98-107) Carbon Dioxide Level 29 mmol/L (21-32) Anion Gap 7 (6-14) Blood Urea Nitrogen 13 mg/dL (7-20) Creatinine 1.0 mg/dL (0.6-1.0) Estimated GFR (Cockcroft-Gault) 63.6 Glucose Level 111 mg/dL (70-99) Calcium Level 8.6 mg/dL (8.5-10.1) Magnesium Level 1.9 mg/dL (1.8-2.4) Review of Systems Review of Systems Complains of pleuritic pain and itchy eyes Assessment and Plan Assessmemt and Plan Problems Medical Problems: (1) Septic shock Status: Acute Sepsis Acute MO Pleuritic chest pain Ileus Hypertension PAD Allergies Plan ICU monitoring Trying to wean her off of the IV Levaquin for the Cardiac workup in progress she may need a stress test and/or cardiac catheter Abdomen: Pharmacy and see if we have any allergy eyedrops Discussed with the RN When necessary narcotics O2 per nasal cannula DVT prophylaxis Full code Home meds Prognosis guarded Total time 33 minutes Comment Review of Relevant I have reviewed the following items ne (where applicable) has been applied. Labs Laboratory Tests Test 02/25/19 06:40 02/25/19 07:45 02/25/19 15:15 02/25/19 23:15 Sodium Level 143 mmol/L (136-145) Potassium Level 3.1 mmol/L (3.5-5.1) Chloride Level 106 mmol/L (98-107) Carbon Dioxide Level 29 mmol/L (21-32) Anion Gap 8 (6-14) Blood Urea Nitrogen 9 mg/dL (7-20) Creatinine 0.8 mg/dL (0.6-1.0) Estimated GFR (Cockcroft-Gault) 82.3 Glucose Level 150 mg/dL (70-99) Calcium Level 8.0 mg/dL (8.5-10.1) Phosphorus Level 3.1 mg/dL (2.6-4.7) Magnesium Level 1.1 mg/dL (1.8-2.4) Troponin I Quantitative 4.942 ng/mL (0.000-0.055) Albumin 2.2 g/dL (3.4-5.0) Triglycerides Level 82 mg/dL (0-150) Cholesterol Level 111 mg/dL (0-200) LDL Cholesterol, Calculated 58 mg/dL (0-100) VLDL Cholesterol, Calculated 16 mg/dL (0-40) Non-HDL Cholesterol Calculated 74 mg/dL (0-129) HDL Cholesterol 37 mg/dL (40-60) Cholesterol/HDL Ratio 3.0 Heparin Anti-Xa Act, Unfractionated 0.17 IU/mL (0.30-0.70) 0.77 IU/mL (0.30-0.70) 0.38 IU/mL (0.30-0.70) Test 02/26/19 07:45 White Blood Count 8.3 x10^3/uL (4.0-11.0) Red Blood Count 3.19 x10^6/uL (3.50-5.40) Hemoglobin 10.0 g/dL (12.0-15.5) Hematocrit 30.6 % (36.0-47.0) Mean Corpuscular Volume 96 fL (79-100) Mean Corpuscular Hemoglobin 32 pg (25-35) Mean Corpuscular Hemoglobin Concent 33 g/dL (31-37) Red Cell Distribution Width 14.1 % (11.5-14.5) Platelet Count 222 x10^3/uL (140-400) Neutrophils (%) (Auto) 60 % (31-73) Lymphocytes (%) (Auto) 25 % (24-48) Monocytes (%) (Auto) 10 % (0-9) Eosinophils (%) (Auto) 4 % (0-3) Basophils (%) (Auto) 1 % (0-3) Neutrophils # (Auto) 4.9 x10^3uL (1.8-7.7) Lymphocytes # (Auto) 2.1 x10^3/uL (1.0-4.8) Monocytes # (Auto) 0.8 x10^3/uL (0.0-1.1) Eosinophils # (Auto) 0.3 x10^3/uL (0.0-0.7) Basophils # (Auto) 0.1 x10^3/uL (0.0-0.2) Heparin Anti-Xa Act, Unfractionated 0.52 IU/mL (0.30-0.70) Sodium Level 144 mmol/L (136-145) Potassium Level 4.2 mmol/L (3.5-5.1) Chloride Level 108 mmol/L (98-107) Carbon Dioxide Level 29 mmol/L (21-32) Anion Gap 7 (6-14) Blood Urea Nitrogen 13 mg/dL (7-20) Creatinine 1.0 mg/dL (0.6-1.0) Estimated GFR (Cockcroft-Gault) 63.6 Glucose Level 111 mg/dL (70-99) Calcium Level 8.6 mg/dL (8.5-10.1) Magnesium Level 1.9 mg/dL (1.8-2.4) Laboratory Tests Test 02/25/19 15:15 02/25/19 23:15 02/26/19 07:45 Heparin Anti-Xa Act, Unfractionated 0.77 IU/mL (0.30-0.70) 0.38 IU/mL (0.30-0.70) 0.52 IU/mL (0.30-0.70) White Blood Count 8.3 x10^3/uL (4.0-11.0) Red Blood Count 3.19 x10^6/uL (3.50-5.40) Hemoglobin 10.0 g/dL (12.0-15.5) Hematocrit 30.6 % (36.0-47.0) Mean Corpuscular Volume 96 fL (79-100) Mean Corpuscular Hemoglobin 32 pg (25-35) Mean Corpuscular Hemoglobin Concent 33 g/dL (31-37) Red Cell Distribution Width 14.1 % (11.5-14.5) Platelet Count 222 x10^3/uL (140-400) Neutrophils (%) (Auto) 60 % (31-73) Lymphocytes (%) (Auto) 25 % (24-48) Monocytes (%) (Auto) 10 % (0-9) Eosinophils (%) (Auto) 4 % (0-3) Basophils (%) (Auto) 1 % (0-3) Neutrophils # (Auto) 4.9 x10^3uL (1.8-7.7) Lymphocytes # (Auto) 2.1 x10^3/uL (1.0-4.8) Monocytes # (Auto) 0.8 x10^3/uL (0.0-1.1) Eosinophils # (Auto) 0.3 x10^3/uL (0.0-0.7) Basophils # (Auto) 0.1 x10^3/uL (0.0-0.2) Sodium Level 144 mmol/L (136-145) Potassium Level 4.2 mmol/L (3.5-5.1) Chloride Level 108 mmol/L (98-107) Carbon Dioxide Level 29 mmol/L (21-32) Anion Gap 7 (6-14) Blood Urea Nitrogen 13 mg/dL (7-20) Creatinine 1.0 mg/dL (0.6-1.0) Estimated GFR (Cockcroft-Gault) 63.6 Glucose Level 111 mg/dL (70-99) Calcium Level 8.6 mg/dL (8.5-10.1) Magnesium Level 1.9 mg/dL (1.8-2.4) Microbiology 02/22/19 Blood Culture - Preliminary, Resulted NO GROWTH AFTER 3 DAYS 02/22/19 Urine Culture - Final, Complete 02/22/19 Urine Culture Result 1 (JIN) - Final, Complete 02/22/19 Antimicrobic Susceptibility - Final, Complete Medications Current Medications Sodium Chloride 1,000 ml @ 1,000 mls/hr 1X ONCE IV Last administered on 9at 21:23; Start 02/22/19 at 20:45; Stop 02/22/19 at 21:44; Status DC Acetaminophen (Tylenol) 650 mg 1X ONCE PO Last administered on 02/22/19at 21:22; Start 02/22/19 at 20:45; Stop 02/22/19 at 20:52; Status DC Piperacillin Sod/ Tazobactam Sod (Zosyn Per Pharmacy) 1 each PRN DAILY PRN MC SEE COMMENTS; Start 02/22/19 at 20:45; Stop 02/23/19 at 14:53; Status DC Piperacillin Sod/ Tazobactam Sod 3.375 gm/Sodium Chloride 50 ml @ 100 mls/hr ONCE ONCE IV Last administered on 02/22/19at 21:23; Start 02/22/19 at 21:00; Stop 02/22/19 at 21:29; Status DC Sodium Chloride 1,000 ml @ 1,000 mls/hr 1X ONCE IV Last administered on 02/22/19at 23:44; Start 02/22/19 at 23:30; Stop 02/23/19 at 00:29; Status DC Sodium Chloride 1,000 ml @ 75 mls/hr [id number] IV Last administered on 02/23/19at 07:38; Start 02/22/19 at 23:30; Stop 02/23/19 at 08:17; Status DC Iohexol (Omnipaque 300 Mg/ml) 60 ml 1X ONCE IV Last administered on 02/23/19at 00:02; Start 02/23/19 at 00:15; Stop 02/23/19 at 00:16; Status DC Info (CONTRAST GIVEN -- Rx MONITORING) 1 each PRN DAILY PRN MC SEE COMMENTS; Start 02/23/19 at 00:15; Stop 02/25/19 at 00:14; Status DC Piperacillin Sod/ Tazobactam Sod 2.25 gm/Sodium Chloride 50 ml @ 100 mls/hr Q6HRS IV Last administered on 02/23/19at 12:26; Start 02/23/19 at 06:00; Stop 02/23/19 at 14:34; Status DC Sodium Chloride 1,000 ml @ 1,000 mls/hr 1X ONCE IV ; Start 02/23/19 at 01:00; Stop 02/23/19 at 01:45; Status DC Sodium Chloride 500 ml @ 500 mls/hr 1X ONCE IV Last administered on 02/23/19at 02:07; Start 02/23/19 at 02:00; Stop 02/23/19 at 02:59; Status DC Norepinephrine Bitartrate 250 ml @ 0 mls/hr 1X ONCE IV ; Start 02/23/19 at 02:00; Stop 02/23/19 at 02:01; Status DC Sodium Chloride 500 ml @ 500 mls/hr 1X ONCE IV Last administered on 02/23/19at 06:10; Start 02/23/19 at 02:00; Stop 02/23/19 at 02:59; Status DC Norepinephrine Bitartrate 250 ml @ 1.875 mls/ hr CONT PRN IV SEE I/O RECORD Last administered on 02/26/19at 09:00; Start 02/23/19 at 03:15 Ondansetron HCl (Zofran) 4 mg PRN Q6HRS PRN IV NAUSEA/VOMITING Last administered on 02/24/19 23:21; Start 02/23/19 at 03:15 Iohexol (Omnipaque 300 Mg/ml) 100 ml STK-MED ONCE .ROUTE ; Start 02/23/19 at 04:24; Stop 02/23/19 at 04:25; Status DC Sodium Chloride 500 ml @ 500 mls/hr 1X ONCE IV Last administered on 02/23/19 08:28; Start 02/23/19 at 07:45; Stop 02/23/19 at 08:44; Status DC Acetaminophen (Tylenol) 650 mg PRN Q6HRS PRN PO MILD PAIN / TEMP Last administered on 02/26/19 00:05; Start 02/23/19 at 08:15 Ringer's Solution 1,000 ml @ 100 mls/hr Q10H IV Last administered on 02/26/19 06:30; Start 02/23/19 at 08:30 Ringer's Solution 500 ml @ 500 mls/hr 1X ONCE IV Last administered on 02/23/19 09:23; Start 02/23/19 at 09:15; Stop 02/23/19 at 10:14; Status DC Dopamine HCl/ Dextrose 250 ml @ 5.749 mls/ hr CONT PRN IV SEE I/O RECORD Last administered on 02/25/19 05:11; Start 02/23/19 at 12:15 Tramadol HCl (Ultram) 50 mg PRN Q6HRS PRN PO MODERATE-SEVERE PAIN Last administ ered on 02/26/19 09:00; Start 02/23/19 at 12:30 Heparin Sodium (Porcine) (Heparin Sodium) 4,000 unit 1X ONCE IV Last administered on 02/23/19 13:30; Start 02/23/19 at 13:00; Stop 02/23/19 at 13:01; Status DC Heparin Sodium/ Dextrose 500 ml @ 0 mls/hr CONT PRN IV SEE I/O RECORD Last administered on 02/25/19 05:12; Start 02/23/19 at 13:00; Stop 02/26/19 at 13:01; Status DC Heparin Sodium (Porcine) (Heparin Sodium) 1,900 unit PRN Q6HRS PRN IV FOR UFH LEVEL LESS THAN 0.2 Last administered on 02/25/19 09:35; Start 02/23/19 at 13:00; Stop 02/26/19 at 13:01; Status DC Polyethylene Glycol (miraLAX PACKET) 17 gm PRN BID PRN PO CONSTIPATION Last administered on 02/23/19 14:38; Start 02/23/19 at 13:15; Stop 02/23/19 at 14:59; Status DC Info (Anti-Coagulation Monitoring By Pharmacy) 1 each PRN DAILY PRN MC SEE COMMENTS Last administered on 02/26/19 08:00; Start 02/23/19 at 13:30 Temazepam (Restoril) 15 mg PRN QHS PRN PO INSOMNIA Last administered on 02/25/19 21:17; Start 02/23/19 at 14:45 Piperacillin Sod/ Tazobactam Sod 2.25 gm/Sodium Chloride 50 ml @ 100 mls/hr Q6HRS IV ; Start 02/23/19 at 18:00; Stop 02/23/19 at 18:00; Status DC Polyethylene Glycol (miraLAX PACKET) 17 gm BID PO Last administered on 02/26/19 08:59; Start 02/23/19 at 21:00 Multi-Ingredient Ointment (Analgesic [place]) 1 mara PRN QID PRN TP MUSCLE PAIN Last administered on 02/24/19 05:08; Start 02/23/19 at 18:00 Pantoprazole Sodium (Protonix) 40 mg DAILYAC PO Last administered on 02/26/19 08:59; Start 02/24/19 at 17:30 Aspirin (Ecotrin) 325 mg 1X ONCE PO Last administered on 02/25/19at 09:31; Start 02/25/19 at 09:15; Stop 02/25/19 at 09:16; Status DC Aspirin (Ecotrin) 81 mg DAILYWBKFT PO Last administered on 02/26/19at 08:59; Start 02/26/19 at 08:00 Potassium Chloride (Klor-Con) 40 meq 1X ONCE PO Last administered on 02/25/19at 09:32; Start 02/25/19 at 09:15; Stop 02/25/19 at 09:16; Status DC Magnesium Sulfate/ Dextrose 100 ml @ 25 mls/hr 1X ONCE IV Last administered on 02/25/19at 11:49; Start 02/25/19 at 11:30; Stop 02/25/19 at 15:29; Status DC Piperacillin Sod/ Tazobactam Sod (Zosyn Per Pharmacy) 1 each PRN DAILY PRN MC SEE COMMENTS; Start 02/25/19 at 16:45 Piperacillin Sod/ Tazobactam Sod 2.25 gm/Sodium Chloride 50 ml @ 100 mls/hr Q6HRS IV Last administered on 02/26/19at 09:00; Start 02/25/19 at 18:00 Bisacodyl (Dulcolax Tab) 10 mg 1X ONCE PO Last administered on 02/26/19at 10:00; Start 02/26/19 at 10:00; Stop 02/26/19 at 10:01; Status DC Methylprednisolone Acetate (DEPO-Medrol 40MG VIAL) 40 mg 1X ONCE IM ; Start 02/26/19 at 12:15; Stop 02/26/19 at 12:20; Status DC Bupivacaine HCl (Sensorcaine-Mpf 0.25%) 10 ml 1X ONCE IJ ; Start 02/26/19 at 12:15; Stop 02/26/19 at 12:20; Status DC Methylprednisolone Acetate (DEPO-Medrol 40MG VIAL) 40 mg 1X ONCE IM ; Start 02/27/19 at 08:00; Stop 02/27/19 at 08:01 Bupivacaine HCl (Sensorcaine-Mpf 0.25%) 10 ml 1X ONCE IJ ; Start 02/27/19 at 08:00; Stop 02/27/19 at 08:01 Active Scripts Active Reported Amlodipine Besylate 10 Mg Tablet 10 Mg PO DAILY Tramadol Hcl 50 Mg Tablet 50 Mg PO Q4H PRN Fish Oil 1,000 Mg Capsule ([place]-3 Fatty Acids/Fish Oil) 1 Each Capsule 1 Each PO Vitamin D3 (Cholecalciferol (Vitamin D3)) 5,000 Unit Capsule 5,000 Unit PO Acetaminophen 500 Mg Tablet 500 Mg PO Aspir 81 (Aspirin) 81 Mg Tablet.dr 81 Mg PO Hydrochlorothiazide Tablet (Hydrochlorothiazide) 25 Mg Tablet 25 Mg PO DAILY Pravastatin Sodium 40 Mg Tablet 40 Mg PO DAILY Miralax (Polyethylene Glycol 3350) 17 Gm Powd.pack 1 Pkt PO DAILY [fiber] Temazepam 30 Mg Capsule 30 Mg PO HS PRN Cozaar (Losartan Potassium) 100 Mg Tablet 100 Mg PO DAILY Vitals/I & O Vital Sign - Last 24 Hours 02/25/19 02/25/19 02/25/19 02/25/19 14:00 15:00 16:00 16:00 Temp 98.2 98.2 Pulse 60 62 Resp 23 26 B/P (MAP) 124/57 (79) 101/45 (63) Pulse Ox 100 100 O2 Delivery Nasal Cannula Nasal Cannula Nasal Cannula O2 Flow Rate 3.0 3.0 3.0 02/25/19 02/25/19 02/25/19 02/25/19 16:00 17:00 18:00 19:00 Pulse 64 60 70 56 Resp 23 25 21 18 B/P (MAP) 79/45 (56) 100/46 (64) 105/52 (69) 102/48 (66) Pulse Ox 100 100 100 98 O2 Delivery Nasal Cannula Nasal Cannula Nasal Cannula Nasal Cannula O2 Flow Rate 3.0 3.0 3.0 3.0 02/25/19 02/25/19 02/25/19 02/25/19 20:00 20:00 21:00 21:15 Temp 98.7 98.7 Pulse 69 63 63 Resp 18 22 B/P (MAP) 133/64 (87) 141/59 (86) 140/65 (90) Pulse Ox 99 92 O2 Delivery Nasal Cannula Nasal Cannula Nasal Cannula O2 Flow Rate 3.0 3.0 3.0 02/25/19 02/25/19 02/25/19 02/25/19 21:30 22:00 22:15 23:00 Pulse 66 66 66 65 Resp 23 22 B/P (MAP) 148/63 (91) 132/46 (74) 125/51 (75) 112/48 (69) Pulse Ox 98 100 O2 Delivery Nasal Cannula Nasal Cannula O2 Flow Rate 3.0 3.0 02/25/19 02/25/19 02/26/19 02/26/19 23:11 23:59 00:00 00:11 Temp 98.8 98.8 Pulse 86 Resp B/P (MAP) 134/56 (82) Pulse Ox 97 100 O2 Delivery Nasal Cannula Nasal Cannula Nasal Cannula O2 Flow Rate 2.0 3.0 3.0 02/26/19 02/26/19 02/26/19 02/26/19 01:00 02:00 03:00 03:45 Pulse 84 63 85 97 Resp B/P (MAP) 95/44 (61) 98/41 (60) 94/42 (59) 84/55 (65) Pulse Ox 97 98 98 O2 Delivery Nasal Cannula Nasal Cannula Nasal Cannula O2 Flow Rate 2.0 2.0 2.0 02/26/19 02/26/19 02/26/19 02/26/19 04:00 04:00 05:00 06:00 Temp 98.6 98.6 Pulse 95 96 86 Resp 18 B/P (MAP) 97/57 (70) 113/51 (71) 134/61 (85) Pulse Ox 96 97 97 O2 Delivery Nasal Cannula Nasal Cannula Nasal Cannula Nasal Cannula O2 Flow Rate 2.0 2.0 2.0 2.0 02/26/19 02/26/19 02/26/19 02/26/19 07:00 08:00 08:00 09:00 Temp 98.2 98.2 Pulse 86 84 Resp 18 B/P (MAP) 118/61 (80) 116/61 (79) Pulse Ox 97 97 97 O2 Delivery Nasal Cannula Nasal Cannula Nasal Cannula Nasal Cannula O2 Flow Rate 2.0 2.0 2.0 2.0 02/26/19 02/26/19 02/26/19 02/26/19 09:00 10:00 10:52 11:00 Pulse 68 82 64 Resp 18 18 18 B/P (MAP) 121/61 (81) 117/61 (79) 131/72 (91) Pulse Ox 97 97 97 97 O2 Delivery Nasal Cannula Nasal Cannula Nasal Cannula Nasal Cannula O2 Flow Rate 2.0 2.0 2.0 2.0 02/26/19 11:40 O2 Delivery Nasal Cannula O2 Flow Rate 2.0 Intake and Output 02/25/19 02/25/19 02/26/19 15:00 23:00 07:00 Intake Total 688.11 ml 1854.91 ml 2298.42 ml Output Total 750 ml 586 ml 1210 ml Balance -61.89 ml 1268.91 ml 1088.42 ml JUNG AYALA III DO February 26, 2019 13:35
--- NOTE | 2019-02-26 14:42 | NUR ---
SS following up with discharge planning. PT/OT evaluated pt and recommended custodial unit. SS met with pt to discuss custodial unit and options. Pt agreeable to custodial unit at discharge. Pt is from [place], [place]. SS discussed options. Pt requested that referral be phoned and faxed to [facility], ; fax [phone]. SS will await acceptance decision and will proceed accordingly.
--- NOTE | 2019-02-26 16:08 | NUR ---
SS following up with discharge planning. Pt accepted at [facility]. SS will await discharge orders and will proceed accordingly.
[2019-02-26] MEDS: POLYVINYL ALCOHOL 1.4% OPHTH SOLUTION 15ML BOTTLE. OU PRN (21:32)
[2019-02-26] MEDS: LACTOBACILLUS RHAMNOSUS GG 1 CAPSULE. PO SCH (21:32)
[2019-02-26] MEDS: TEMAZEPAM 15 MG CAPSULE PO PRN (21:32)
[2019-02-26] MEDS: DICLOFENAC SODIUM 1% TOPICAL GEL 100GM TUBE. TP SCH (21:33)
[2019-02-27] VITALS (20 sets, daily range): BP systolic 86–142; BP diastolic 44–74
[2019-02-27] MEDS: PIPERACILLIN/TAZOBACTAM 2.25 GM in IV NORMAL SALINE 50ML 50 ML IV SCH ×5 (00:35→23:15)
[2019-02-27] MEDS: ACETAMINOPHEN 325 MG TABLET. PO PRN (03:02)
[2019-02-27] MEDS: traMADol 50 MG TABLET PO PRN ×3 (03:41→20:23)
[2019-02-27] MEDS: IV RINGERS,LACTATED 1000ML 1,000 ML IV SCH ×3 (03:50→23:15)
[2019-02-27] MEDS ORDERED: BUPIVACAINE MPF 0.25% 10 ML VIAL. IJ ONE (08:00)
[2019-02-27] MEDS ORDERED: methylPREDNISolone ACETATE 40 MG/ML VIAL. IM ONE (08:00)
--- NOTE | 2019-02-27 08:51 | PDOC ---
PROGRESS NOTES Subjective Subjective She c/o dry and itchy eyes that disturbed her sleep and she denies any back pain and knee joint pain is less. Objective Objective Vital Signs Date Time Temp Pulse Resp B/P (MAP) Pulse Ox O2 Delivery O2 Flow Rate FiO2 02/27/19 07:43 Nasal Cannula 2.0 02/27/19 07:00 97.9 72 20 96/46 (63) 97 97.9 Intake and Output 02/27/19 07:00 Intake Total 3337.31 ml Output Total 1685 ml Balance 1652.31 ml Intake Oral 440 ml IV Total 2897.31 ml Output Urine Total 1685 ml # Bowel Movements 1 Physical Exam Physical Exam She is alert,sitting in bedside chair and eating breakfast and she continues with crepitus on ROM of her knees with knee joint effusion. Assessment Assessment Problems Medical Problems: (1) Septic shock Status: Acute Plan Plan of Care To consider injecting her knees when her knee joint pain is interfering with her mobility. Comment Review of Relevant I have reviewed the following items ne (where applicable) has been applied. Labs Laboratory Tests Test 02/25/19 15:15 02/25/19 23:15 02/26/19 07:45 02/27/19 05:45 Heparin Anti-Xa Act, Unfractionated 0.77 IU/mL (0.30-0.70) 0.38 IU/mL (0.30-0.70) 0.52 IU/mL (0.30-0.70) < 0.10 IU/mL (0.30-0.70) White Blood Count 8.3 x10^3/uL (4.0-11.0) Red Blood Count 3.19 x10^6/uL (3.50-5.40) Hemoglobin 10.0 g/dL (12.0-15.5) Hematocrit 30.6 % (36.0-47.0) Mean Corpuscular Volume 96 fL (79-100) Mean Corpuscular Hemoglobin 32 pg (25-35) Mean Corpuscular Hemoglobin Concent 33 g/dL (31-37) Red Cell Distribution Width 14.1 % (11.5-14.5) Platelet Count 222 x10^3/uL (140-400) Neutrophils (%) (Auto) 60 % (31-73) Lymphocytes (%) (Auto) 25 % (24-48) Monocytes (%) (Auto) 10 % (0-9) Eosinophils (%) (Auto) 4 % (0-3) Basophils (%) (Auto) 1 % (0-3) Neutrophils # (Auto) 4.9 x10^3uL (1.8-7.7) Lymphocytes # (Auto) 2.1 x10^3/uL (1.0-4.8) Monocytes # (Auto) 0.8 x10^3/uL (0.0-1.1) Eosinophils # (Auto) 0.3 x10^3/uL (0.0-0.7) Basophils # (Auto) 0.1 x10^3/uL (0.0-0.2) Sodium Level 144 mmol/L (136-145) Potassium Level 4.2 mmol/L (3.5-5.1) Chloride Level 108 mmol/L (98-107) Carbon Dioxide Level 29 mmol/L (21-32) Anion Gap 7 (6-14) Blood Urea Nitrogen 13 mg/dL (7-20) Creatinine 1.0 mg/dL (0.6-1.0) Estimated GFR (Cockcroft-Gault) 63.6 Glucose Level 111 mg/dL (70-99) Calcium Level 8.6 mg/dL (8.5-10.1) Magnesium Level 1.9 mg/dL (1.8-2.4) Laboratory Tests Test 02/27/19 05:45 Heparin Anti-Xa Act, Unfractionated < 0.10 IU/mL (0.30-0.70) Microbiology 02/22/19 Blood Culture - Preliminary, Resulted NO GROWTH AFTER 4 DAYS 02/22/19 Urine Culture - Final, Complete 02/22/19 Urine Culture Result 1 (JIN) - Final, Complete 02/22/19 Antimicrobic Susceptibility - Final, Complete Medications Current Medications Sodium Chloride 1,000 ml @ 1,000 mls/hr 1X ONCE IV Last administered on 02/22/19at 21:23; Start 02/22/19 at 20:45; Stop 02/22/19 at 21:44; Status DC Acetaminophen (Tylenol) 650 mg 1X ONCE PO Last administered on 02/22/19at 21:22; Start 02/22/19 at 20:45; Stop 02/22/19 at 20:52; Status DC Piperacillin Sod/ Tazobactam Sod (Zosyn Per Pharmacy) 1 each PRN DAILY PRN MC SEE COMMENTS; Start 02/22/19 at 20:45; Stop 02/23/19 at 14:53; Status DC Piperacillin Sod/ Tazobactam Sod 3.375 gm/Sodium Chloride 50 ml @ 100 mls/hr ONCE ONCE IV Last administered on 02/22/19at 21:23; Start 02/22/19 at 21:00; Stop 02/22/19 at 21:29; Status DC Sodium Chloride 1,000 ml @ 1,000 mls/hr 1X ONCE IV Last administered on 02/22/19at 23:44; Start 02/22/19 at 23:30; Stop 02/23/19 at 00:29; Status DC Sodium Chloride 1,000 ml @ 75 mls/hr [id number] IV Last administered on 02/23/19at 07:38; Start 02/22/19 at 23:30; Stop 02/23/19 at 08:17; Status DC Iohexol (Omnipaque 300 Mg/ml) 60 ml 1X ONCE IV Last administered on 02/23/19at 00:02; Start 02/23/19 at 00:15; Stop 02/23/19 at 00:16; Status DC Info (CONTRAST GIVEN -- Rx MONITORING) 1 each PRN DAILY PRN MC SEE COMMENTS; Start 02/23/19 at 00:15; Stop 02/25/19 at 00:14; Status DC Piperacillin Sod/ Tazobactam Sod 2.25 gm/Sodium Chloride 50 ml @ 100 mls/hr Q6HRS IV Last administered on 02/23/19at 12:26; Start 02/23/19 at 06:00; Stop 02/23/19 at 14:34; Status DC Sodium Chloride 1,000 ml @ 1,000 mls/hr 1X ONCE IV ; Start 02/23/19 at 01:00; Stop 02/23/19 at 01:45; Status DC Sodium Chloride 500 ml @ 500 mls/hr 1X ONCE IV Last administered on 02/23/19at 02:07; Start 02/23/19 at 02:00; Stop 02/23/19 at 02:59; Status DC Norepinephrine Bitartrate 250 ml @ 0 mls/hr 1X ONCE IV ; Start 02/23/19 at 02:00; Stop 02/23/19 at 02:01; Status DC Sodium Chloride 500 ml @ 500 mls/hr 1X ONCE IV Last administered on 02/23/19 06:10; Start 02/23/19 at 02:00; Stop 02/23/19 at 02:59; Status DC Norepinephrine Bitartrate 250 ml @ 1.875 mls/ hr CONT PRN IV SEE I/O RECORD Last administered on 02/26/19 09:00; Start 02/23/19 at 03:15 Ondansetron HCl (Zofran) 4 mg PRN Q6HRS PRN IV NAUSEA/VOMITING Last administ ered on 02/24/19 23:21; Start 02/23/19 at 03:15 Iohexol (Omnipaque 300 Mg/ml) 100 ml STK-MED ONCE .ROUTE ; Start 02/23/19 at 04:24; Stop 02/23/19 at 04:25; Status DC Sodium Chloride 500 ml @ 500 mls/hr 1X ONCE IV Last administered on 02/23/19 08:28; Start 02/23/19 at 07:45; Stop 02/23/19 at 08:44; Status DC Acetaminophen (Tylenol) 650 mg PRN Q6HRS PRN PO MILD PAIN / TEMP Last admi nistered on 02/27/19 03:02; Start 02/23/19 at 08:15 Ringer's Solution 1,000 ml @ 100 mls/hr Q10H IV Last administered on 02/27/19 03:50; Start 02/23/19 at 08:30 Ringer's Solution 500 ml @ 500 mls/hr 1X ONCE IV Last administered on 02/23/19 09:23; Start 02/23/19 at 09:15; Stop 02/23/19 at 10:14; Status DC Dopamine HCl/ Dextrose 250 ml @ 5.749 mls/ hr CONT PRN IV SEE I/O RECORD Last administered on 02/25/19 05:11; Start 02/23/19 at 12:15 Tramadol HCl (Ultram) 50 mg PRN Q6HRS PRN PO MODERATE-SEVERE PAIN Last administered on 02/27/19 03:41; Start 02/23/19 at 12:30 Heparin Sodium (Porcine) (Heparin Sodium) 4,000 unit 1X ONCE IV Last administered on 02/23/19 13:30; Start 02/23/19 at 13:00; Stop 02/23/19 at 13:01; Status DC Heparin Sodium/ Dextrose 500 ml @ 0 mls/hr CONT PRN IV SEE I/O RECORD Last administered on 02/25/19at 05:12; Start 02/23/19 at 13:00; Stop 02/26/19 at 13:01; Status DC Heparin Sodium (Porcine) (Heparin Sodium) 1,900 unit PRN Q6HRS PRN IV FOR UFH LEVEL LESS THAN 0.2 Last administered on 02/25/19 09:35; Start 02/23/19 at 13:00; Stop 02/26/19 at 13:01; Status DC Polyethylene Glycol (miraLAX PACKET) 17 gm PRN BID PRN PO CONSTIPATION Last administered on 02/23/19at 14:38; Start 02/23/19 at 13:15; Stop 02/23/19 at 14:59; Status DC Info (Anti-Coagulation Monitoring By Pharmacy) 1 each PRN DAILY PRN MC SEE COMMENTS Last administered on 02/26/19at 08:00; Start 02/23/19 at 13:30; Stop 02/26/19 at 13:50; Status DC Temazepam (Restoril) 15 mg PRN QHS PRN PO INSOMNIA Last administered on 02/26/19 21:32; Start 02/23/19 at 14:45 Piperacillin Sod/ Tazobactam Sod 2.25 gm/Sodium Chloride 50 ml @ 100 mls/hr Q6HRS IV ; Start 02/23/19 at 18:00; Stop 02/23/19 at 18:00; Status DC Polyethylene Glycol (miraLAX PACKET) 17 gm BID PO Last administered on 02/26/19 21:33; Start 02/23/19 at 21:00 Multi-Ingredient Ointment (Analgesic Rex) 1 mara PRN QID PRN TP MUSCLE PAIN Last administered on 02/24/19 05:08; Start 02/23/19 at 18:00 Pantoprazole Sodium (Protonix) 40 mg DAILYAC PO Last administered on 02/26/19 08:59; Start 02/24/19 at 17:30 Aspirin (Ecotrin) 325 mg 1X ONCE PO Last administered on 02/25/19at 09:31; Start 02/25/19 at 09:15; Stop 02/25/19 at 09:16; Status DC Aspirin (Ecotrin) 81 mg DAILYWBKFT PO Last administered on 02/26/19at 08:59; Start 02/26/19 at 08:00 Potassium Chloride (Klor-Con) 40 meq 1X ONCE PO Last administered on 02/25/19at 09:32; Start 02/25/19 at 09:15; Stop 02/25/19 at 09:16; Status DC Magnesium Sulfate/ Dextrose 100 ml @ 25 mls/hr 1X ONCE IV Last administered on 02/25/19at 11:49; Start 02/25/19 at 11:30; Stop 02/25/19 at 15:29; Status DC Piperacillin Sod/ Tazobactam Sod (Zosyn Per Pharmacy) 1 each PRN DAILY PRN MC SEE COMMENTS; Start 02/25/19 at 16:45 Piperacillin Sod/ Tazobactam Sod 2.25 gm/Sodium Chloride 50 ml @ 100 mls/hr Q6HRS IV Last administered on 02/27/19at 05:34; Start 02/25/19 at 18:00 Bisacodyl (Dulcolax Tab) 10 mg 1X ONCE PO Last administered on 02/26/19at 10:00; Start 02/26/19 at 10:00; Stop 02/26/19 at 10:01; Status DC Methylprednisolone Acetate (DEPO-Medrol 40MG VIAL) 40 mg 1X ONCE IM ; Start 02/26/19 at 12:15; Stop 02/26/19 at 12:20; Status DC Bupivacaine HCl (Sensorcaine-Mpf 0.25%) 10 ml 1X ONCE IJ ; Start 02/26/19 at 12:15; Stop 02/26/19 at 12:20; Status DC Methylprednisolone Acetate (DEPO-Medrol 40MG VIAL) 40 mg 1X ONCE IM ; Start 02/27/19 at 08:00; Stop 02/27/19 at 08:01; Status DC Bupivacaine HCl (Sensorcaine-Mpf 0.25%) 10 ml 1X ONCE IJ ; Start 02/27/19 at 08:00; Stop 02/27/19 at 08:01; Status DC Lactobacillus Rhamnosus (Culturelle) 1 cap BID PO Last administered on 02/26/19 21:32; Start 02/26/19 at 21:00 Diclofenac Sodium (Voltaren) 1 mara BID TP Last administered on 02/26/19 21:33; Start 02/26/19 at 21:00 Artificial Tears (Artificial Tears) 1 drop PRN Q2HR PRN OU DRY EYE Last administered on 02/26/19 21:32; Start 02/26/19 at 19:15 Active Scripts Active Reported Amlodipine Besylate 10 Mg Tablet 10 Mg PO DAILY Tramadol Hcl 50 Mg Tablet 50 Mg PO Q4H PRN Fish Oil 1,000 Mg Capsule (Crowder-3 Fatty Acids/Fish Oil) 1 Each Capsule 1 Each PO Vitamin D3 (Cholecalciferol (Vitamin D3)) 5,000 Unit Capsule 5,000 Unit PO Acetaminophen 500 Mg Tablet 500 Mg PO Aspir 81 (Aspirin) 81 Mg Tablet.dr 81 Mg PO Hydrochlorothiazide Tablet (Hydrochlorothiazide) 25 Mg Tablet 25 Mg PO DAILY Pravastatin Sodium 40 Mg Tablet 40 Mg PO DAILY Miralax (Polyethylene Glycol 3350) 17 Gm Powd.pack 1 Pkt PO DAILY [fiber] Temazepam 30 Mg Capsule 30 Mg PO HS PRN Cozaar (Losartan Potassium) 100 Mg Tablet 100 Mg PO DAILY Vitals/I & O Vital Sign - Last 24 Hours 02/26/19 02/26/19 02/26/19 02/26/19 09:00 09:00 10:00 11:00 Pulse 68 82 64 Resp 18 18 18 B/P (MAP) 121/61 (81) 117/61 (79) 131/72 (91) Pulse Ox 97 97 97 97 O2 Delivery Nasal Cannula Nasal Cannula Nasal Cannula Nasal Cannula O2 Flow Rate 2.0 2.0 2.0 2.0 02/26/19 02/26/19 02/26/19 02/26/19 11:40 12:00 13:00 14:00 Pulse 64 64 64 Resp 18 18 18 B/P (MAP) 98/70 (79) 105/72 (83) 98/62 (74) Pulse Ox 97 98 97 O2 Delivery Nasal Cannula Nasal Cannula Nasal Cannula Nasal Cannula O2 Flow Rate 2.0 2.0 2.0 2.0 02/26/19 02/26/19 02/26/19 02/26/19 15:00 16:00 16:18 17:00 Pulse 62 56 62 Resp 18 18 18 B/P (MAP) 94/54 (67) 106/46 (66) 122/58 (79) Pulse Ox 97 97 97 O2 Delivery Nasal Cannula Nasal Cannula Nasal Cannula Nasal Cannula O2 Flow Rate 2.0 2.0 2.0 2.0 02/26/19 02/26/19 02/26/19 02/26/19 18:00 19:00 19:15 19:45 Pulse 68 68 67 64 Resp 18 20 B/P (MAP) 111/58 (75) 123/54 (77) 134/57 (82) 147/70 (95) Pulse Ox 97 98 O2 Delivery Nasal Cannula Nasal Cannula O2 Flow Rate 2.0 2.0 02/26/19 02/26/19 02/26/19 02/26/19 20:00 20:00 21:00 21:33 Temp 98.6 98.6 Pulse 64 68 Resp 22 24 20 B/P (MAP) 139/83 (101) 124/62 (82) Pulse Ox 100 100 100 O2 Delivery Nasal Cannula Nasal Cannula Nasal Cannula Nasal Cannula O2 Flow Rate 2.0 2.0 2.0 2.0 02/26/19 02/26/19 02/26/19 02/27/19 22:00 23:00 23:59 00:00 Temp 98.4 98.4 Pulse 68 64 65 Resp 20 22 18 B/P (MAP) 135/53 (80) 124/57 (79) 105/63 (77) Pulse Ox 100 100 100 O2 Delivery Nasal Cannula Nasal Cannula Nasal Cannula Nasal Cannula O2 Flow Rate 2.0 2.0 2.0 2.0 02/27/19 02/27/19 02/27/19 02/27/19 01:00 02:00 03:00 03:41 Pulse 67 72 75 Resp 20 22 24 22 B/P (MAP) 98/52 (67) 86/51 (63) 97/53 (68) Pulse Ox 100 98 98 97 O2 Delivery Nasal Cannula Nasal Cannula Nasal Cannula Nasal Cannula O2 Flow Rate 2.0 2.0 2.0 2.0 02/27/19 02/27/19 02/27/19 02/27/19 04:00 04:00 04:00 04:41 Temp 98.0 98.0 Pulse 69 Resp 20 18 B/P (MAP) 110/59 (76) Pulse Ox 96 98 O2 Delivery Nasal Cannula Nasal Cannula Nasal Cannula Nasal Cannula O2 Flow Rate 2.0 2.0 2.0 2.0 02/27/19 02/27/19 02/27/19 02/27/19 05:00 06:00 06:30 06:45 Pulse 65 73 70 67 Resp 22 23 B/P (MAP) 113/57 (75) 111/49 (69) 111/49 (69) 96/46 (63) Pulse Ox 96 97 O2 Delivery Nasal Cannula Nasal Cannula O2 Flow Rate 2.0 2.0 02/27/19 02/27/19 07:00 07:43 Temp 97.9 97.9 Pulse 72 Resp 20 B/P (MAP) 96/46 (63) Pulse Ox 97 O2 Delivery Nasal Cannula Nasal Cannula O2 Flow Rate 2.0 2.0 Intake and Output 02/26/19 02/26/19 02/27/19 15:00 23:00 07:00 Intake Total 50 ml 2112 ml 1175.31 ml Output Total 390 ml 825 ml 470 ml Balance -340 ml 1287 ml 705.31 ml Nutrition Consultation Dietary Evaluation: Recommendations by RD: Increase Calorie Intake, Protein supplementation Comments: Continue w/GI soft/cardiac diet as ordered, honor food preferences, and provide snacks as requested REC Ensure (strawberry) w/lunch trays Expected Outcomes/Goals: PO intake to meet >75% est needs Malnutrition Findings: Food and Nutrition Intake (Mod: <75% est energy req 7days Weight Status: Appropriate ERIN PRIETO MD February 27, 2019 08:51
--- NOTE | 2019-02-27 09:01 | PDOC ---
CARDIO Progress Notes Date and Time Date of Service 02/27/2019 Time of Evaluation 0840 Subjective Subjective: No Chest Pain, No shortness of breath, No Palpitations, No Dizziness, Other (sitting up in chair, complains of not enough sleep and also still having right knee pain) Vitals Vitals Vital Signs Date Time Temp Pulse Resp B/P (MAP) Pulse Ox O2 Delivery O2 Flow Rate FiO2 02/27/19 07:43 Nasal Cannula 2.0 02/27/19 07:00 97.9 72 20 96/46 (63) 97 97.9 Weight Weight [ ] Input and Output Intake and Output Intake and Output 02/27/19 07:00 Intake Total 3337.31 ml Output Total 1685 ml Balance 1652.31 ml Intake Oral 440 ml IV Total 2897.31 ml Output Urine Total 1685 ml # Bowel Movements 1 Laboratory Labs Laboratory Tests Test 02/27/19 05:45 Heparin Anti-Xa Act, Unfractionated < 0.10 IU/mL (0.30-0.70) Microbiology Micro Microbiology 02/22/19 Blood Culture - Preliminary, Resulted NO GROWTH AFTER 4 DAYS 02/22/19 Urine Culture - Final, Complete 02/22/19 Urine Culture Result 1 (JIN) - Final, Complete 02/22/19 Antimicrobic Susceptibility - Final, Complete Physical Exam HEENT: Neck Supple W Full Motion Chest: Symmetric LUNGS: Clear to Auscultation Heart: S1S2, RRR (SR RBBB) Abdomen: Soft N/T Extremities: No Calf Tenderness, Other (trace LE edema) Neurology: alert, oriented, follow commands Assessment Assessment 1. Sepsis/shock: UTI. improved but BP remains low. 2. NSTEMI: Trop 12. Possibly type 2. EF and WM nml. EKG with RBBB. No known hx of CAD. 3. Mild Colonic ileus: improved. GI following 4. PAD: with prior fempop and CEA 5. hx of HTN 6. 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 Right knee pain: intraarticular analgesic per Dr. Harper today. Recommendations 1. Titrating off levophed today, still dependent on IVF. CBC today and limited TTE. Plavix to start pending CBC 2. ASA. statin. No BP meds at this time. 3. Antibiotics per PCP. 3. Ischemic workup once extracardiac issues are better. RENÉ SERRANO PULMONARY PHYSICAL THERAPIST February 27, 2019 09:01
[2019-02-27 09:14] LABS: HEMATOCRIT 23.4 % (36.0-47.0); HEMOGLOBIN 7.7 g/dL (12.0-15.5); RED BLOOD COUNT 2.41 x10^6/uL (3.50-5.40); RED CELL DISTRIBUTION WIDTH 14.1 % (11.5-14.5); WHITE BLOOD COUNT 6.8 x10^3/uL (4.0-11.0)
[2019-02-27] MEDS: METHYL SALICYLATE/MENTHOL TOPICAL OINTMENT 29GM TUBE. TP PRN (09:18)
[2019-02-27] MEDS: ASPIRIN ENTERIC COATED 81 MG TABLET.DR. PO SCH (09:19)
[2019-02-27] MEDS: DICLOFENAC SODIUM 1% TOPICAL GEL 100GM TUBE. TP SCH ×2 (09:19→20:24)
[2019-02-27] MEDS: PANTOPRAZOLE 40 MG TABLET.DR. PO SCH (09:19)
[2019-02-27] MEDS: LACTOBACILLUS RHAMNOSUS GG 1 CAPSULE. PO SCH ×2 (09:19→20:24)
[2019-02-27] MEDS: POLYVINYL ALCOHOL 1.4% OPHTH SOLUTION 15ML BOTTLE. OU PRN ×2 (09:20→10:53)
[2019-02-27] MEDS ORDERED: KETOTIFEN FUMARATE 0.025% OPHTH SOLUTION BOTTLE. OU ONE (09:30)
[2019-02-27] MEDS: POLYETHYLENE GLYCOL 3350 17 GM PACKET. PO SCH ×2 (10:53→19:52)
--- NOTE | 2019-02-27 11:06 | PDOC ---
[facility] [facility] PROGRESS NOTE Chief Complaint Chief Complaint Shakes and nausea and sepsis Critical hypotension Elevated troponin History of Present Illness History of Present Illness Patient seen and examined in the intensive care unit Discussed with nurse and telephonic nurse case manager She is currently off of the levophed Chart was reviewed Still complains of her eyes itching Vitals Vitals Vital Signs Date Time Temp Pulse Resp B/P (MAP) Pulse Ox O2 Delivery O2 Flow Rate FiO2 02/27/19 10:20 18 95 Nasal Cannula 02/27/19 10:00 61 97/44 (61) 02/27/19 09:19 2.0 02/27/19 07:00 97.9 97.9 Physical Exam General: Alert, moderate distress Heart: Normal S1, Other (tachycardic) Lungs: Clear Abdomen: Normal bowel sounds Extremities: No clubbing, No cyanosis, No edema, No tenderness/swelling, Other (Decreased peripheral pulses in RUE, LUE and LLE, good pulses RLE) Skin: No rashes, No breakdown, No significant lesion Labs LABS Laboratory Tests Test 02/27/19 05:45 White Blood Count 6.8 x10^3/uL (4.0-11.0) Red Blood Count 2.41 x10^6/uL (3.50-5.40) Hemoglobin 7.7 g/dL (12.0-15.5) Hematocrit 23.4 % (36.0-47.0) Mean Corpuscular Volume 97 fL (79-100) Mean Corpuscular Hemoglobin 32 pg (25-35) Mean Corpuscular Hemoglobin Concent 33 g/dL (31-37) Red Cell Distribution Width 14.1 % (11.5-14.5) Platelet Count 201 x10^3/uL (140-400) Heparin Anti-Xa Act, Unfractionated < 0.10 IU/mL (0.30-0.70) Review of Systems Review of Systems Complains of eyes itching and weakness Assessment and Plan Assessmemt and Plan Problems Medical Problems: (1) Septic shock Status: Acute Sepsis Acute DC Pleuritic chest pain Ileus Hypertension PAD Allergies Plan ICU monitoring Cardiac workup in progress she may need a stress test and/or cardiac catheter When necessary narcotics O2 per nasal cannula DVT prophylaxis Full code Home meds Antihistamine eyedrops Comment Review of Relevant I have reviewed the following items ne (where applicable) has been applied. Labs Laboratory Tests Test 02/25/19 15:15 02/25/19 23:15 02/26/19 07:45 02/27/19 05:45 Heparin Anti-Xa Act, Unfractionated 0.77 IU/mL (0.30-0.70) 0.38 IU/mL (0.30-0.70) 0.52 IU/mL (0.30-0.70) < 0.10 IU/mL (0.30-0.70) White Blood Count 8.3 x10^3/uL (4.0-11.0) 6.8 x10^3/uL (4.0-11.0) Red Blood Count 3.19 x10^6/uL (3.50-5.40) 2.41 x10^6/uL (3.50-5.40) Hemoglobin 10.0 g/dL (12.0-15.5) 7.7 g/dL (12.0-15.5) Hematocrit 30.6 % (36.0-47.0) 23.4 % (36.0-47.0) Mean Corpuscular Volume 96 fL (79-100) 97 fL (79-100) Mean Corpuscular Hemoglobin 32 pg (25-35) 32 pg (25-35) Mean Corpuscular Hemoglobin Concent 33 g/dL (31-37) 33 g/dL (31-37) Red Cell Distribution Width 14.1 % (11.5-14.5) 14.1 % (11.5-14.5) Platelet Count 222 x10^3/uL (140-400) 201 x10^3/uL (140-400) Neutrophils (%) (Auto) 60 % (31-73) Lymphocytes (%) (Auto) 25 % (24-48) Monocytes (%) (Auto) 10 % (0-9) Eosinophils (%) (Auto) 4 % (0-3) Basophils (%) (Auto) 1 % (0-3) Neutrophils # (Auto) 4.9 x10^3uL (1.8-7.7) Lymphocytes # (Auto) 2.1 x10^3/uL (1.0-4.8) Monocytes # (Auto) 0.8 x10^3/uL (0.0-1.1) Eosinophils # (Auto) 0.3 x10^3/uL (0.0-0.7) Basophils # (Auto) 0.1 x10^3/uL (0.0-0.2) Sodium Level 144 mmol/L (136-145) Potassium Level 4.2 mmol/L (3.5-5.1) Chloride Level 108 mmol/L (98-107) Carbon Dioxide Level 29 mmol/L (21-32) Anion Gap 7 (6-14) Blood Urea Nitrogen 13 mg/dL (7-20) Creatinine 1.0 mg/dL (0.6-1.0) Estimated GFR (Cockcroft-Gault) 63.6 Glucose Level 111 mg/dL (70-99) Calcium Level 8.6 mg/dL (8.5-10.1) Magnesium Level 1.9 mg/dL (1.8-2.4) Laboratory Tests Test 02/27/19 05:45 White Blood Count 6.8 x10^3/uL (4.0-11.0) Red Blood Count 2.41 x10^6/uL (3.50-5.40) Hemoglobin 7.7 g/dL (12.0-15.5) Hematocrit 23.4 % (36.0-47.0) Mean Corpuscular Volume 97 fL (79-100) Mean Corpuscular Hemoglobin 32 pg (25-35) Mean Corpuscular Hemoglobin Concent 33 g/dL (31-37) Red Cell Distribution Width 14.1 % (11.5-14.5) Platelet Count 201 x10^3/uL (140-400) Heparin Anti-Xa Act, Unfractionated < 0.10 IU/mL (0.30-0.70) Microbiology 02/22/19 Blood Culture - Preliminary, Resulted NO GROWTH AFTER 4 DAYS 02/22/19 Urine Culture - Final, Complete 02/22/19 Urine Culture Result 1 (JIN) - Final, Complete 02/22/19 Antimicrobic Susceptibility - Final, Complete Medications Current Medications Sodium Chloride 1,000 ml @ 1,000 mls/hr 1X ONCE IV Last administered on 02/22at 21:23; Start 02/22/19 at 20:45; Stop 02/22/19 at 21:44; Status DC Acetaminophen (Tylenol) 650 mg 1X ONCE PO Last administered on 02/22/19at 21:22; Start 02/22/19 at 20:45; Stop 02/22/19 at 20:52; Status DC Piperacillin Sod/ Tazobactam Sod (Zosyn Per Pharmacy) 1 each PRN DAILY PRN MC SEE COMMENTS; Start 02/22/19 at 20:45; Stop 02/23/19 at 14:53; Status DC Piperacillin Sod/ Tazobactam Sod 3.375 gm/Sodium Chloride 50 ml @ 100 mls/hr ONCE ONCE IV Last administered on 02/22/19at 21:23; Start 02/22/19 at 21:00; Stop 02/22/19 at 21:29; Status DC Sodium Chloride 1,000 ml @ 1,000 mls/hr 1X ONCE IV Last administered on 02/22/19at 23:44; Start 02/22/19 at 23:30; Stop 02/23/19 at 00:29; Status DC Sodium Chloride 1,000 ml @ 75 mls/hr [id number] IV Last administered on 02/23/19at 07:38; Start 02/22/19 at 23:30; Stop 02/23/19 at 08:17; Status DC Iohexol (Omnipaque 300 Mg/ml) 60 ml 1X ONCE IV Last administered on 02/23/19at 00:02; Start 02/23/19 at 00:15; Stop 02/23/19 at 00:16; Status DC Info (CONTRAST GIVEN -- Rx MONITORING) 1 each PRN DAILY PRN MC SEE COMMENTS; Start 02/23/19 at 00:15; Stop 02/25/19 at 00:14; Status DC Piperacillin Sod/ Tazobactam Sod 2.25 gm/Sodium Chloride 50 ml @ 100 mls/hr Q6HRS IV Last administered on 02/23/19at 12:26; Start 02/23/19 at 06:00; Stop 02/23 at 14:34; Status DC Sodium Chloride 1,000 ml @ 1,000 mls/hr 1X ONCE IV ; Start 02/23/19 at 01:00; Stop 02/23/19 at 01:45; Status DC Sodium Chloride 500 ml @ 500 mls/hr 1X ONCE IV Last administered on 02/23/19at 02:07; Start 02/23/19 at 02:00; Stop 02/23/19 at 02:59; Status DC Norepinephrine Bitartrate 250 ml @ 0 mls/hr 1X ONCE IV ; Start 02/23/19 at 02:00; Stop 02/23/19 at 02:01; Status DC Sodium Chloride 500 ml @ 500 mls/hr 1X ONCE IV Last administered on 02/23/19at 06:10; Start 02/23/19 at 02:00; Stop 02/23/19 at 02:59; Status DC Norepinephrine Bitartrate 250 ml @ 1.875 mls/ hr CONT PRN IV SEE I/O RECORD Last administered on 02/26/19at 09:00; Start 02/23/19 at 03:15 Ondansetron HCl (Zofran) 4 mg PRN Q6HRS PRN IV NAUSEA/VOMITING Last administered on 02/24/19at 23:21; Start 02/23/19 at 03:15 Iohexol (Omnipaque 300 Mg/ml) 100 ml STK-MED ONCE .ROUTE ; Start 02/23/19 at 04:24; Stop 02/23/19 at 04:25; Status DC Sodium Chloride 500 ml @ 500 mls/hr 1X ONCE IV Last administered on 02/23/19at 08:28; Start 02/23/19 at 07:45; Stop 02/23/19 at 08:44; Status DC Acetaminophen (Tylenol) 650 mg PRN Q6HRS PRN PO MILD PAIN / TEMP Last administered on 02/27/19at 03:02; Start 02/23/19 at 08:15 Ringer's Solution 1,000 ml @ 100 mls/hr Q10H IV Last administered on 02/27/19at 03:50; Start 02/23/19 at 08:30 Ringer's Solution 500 ml @ 500 mls/hr 1X ONCE IV Last administered on 02/23/19at 09:23; Start 02/23/19 at 09:15; Stop 02/23/19 at 10:14; Status DC Dopamine HCl/ Dextrose 250 ml @ 5.749 mls/ hr CONT PRN IV SEE I/O RECORD Last administered on 02/25/19at 05:11; Start 02/23/19 at 12:15 Tramadol HCl (Ultram) 50 mg PRN Q6HRS PRN PO MODERATE-SEVERE PAIN Last admini stered on 02/27/19 09:19; Start 02/23/19 at 12:30 Heparin Sodium (Porcine) (Heparin Sodium) 4,000 unit 1X ONCE IV Last administ ered on 02/23/19 13:30; Start 02/23/19 at 13:00; Stop 02/23/19 at 13:01; Status DC Heparin Sodium/ Dextrose 500 ml @ 0 mls/hr CONT PRN IV SEE I/O RECORD Last administered on 02/25/19 05:12; Start 02/23/19 at 13:00; Stop 02/26/19 at 13:01; Status DC Heparin Sodium (Porcine) (Heparin Sodium) 1,900 unit PRN Q6HRS PRN IV FOR UFH LEVEL LESS THAN 0.2 Last administered on 02/25/19 09:35; Start 02/23/19 at 13:00; Stop 02/26/19 at 13:01; Status DC Polyethylene Glycol (miraLAX PACKET) 17 gm PRN BID PRN PO CONSTIPATION Last administered on 02/23/19 14:38; Start 02/23/19 at 13:15; Stop 02/23/19 at 14:59; Status DC Info (Anti-Coagulation Monitoring By Pharmacy) 1 each PRN DAILY PRN MC SEE COMMENTS Last administered on 02/26/19 08:00; Start 02/23/19 at 13:30; Stop 02/26/19 at 13:50; Status DC Temazepam (Restoril) 15 mg PRN QHS PRN PO INSOMNIA Last administered on 02/26/19 21:32; Start 02/23/19 at 14:45 Piperacillin Sod/ Tazobactam Sod 2.25 gm/Sodium Chloride 50 ml @ 100 mls/hr Q6HRS IV ; Start 02/23/19 at 18:00; Stop 02/23/19 at 18:00; Status DC Polyethylene Glycol (miraLAX PACKET) 17 gm BID PO Last administered on 02/27/19at 10:53; Start 02/23/19 at 21:00 Multi-Ingredient Ointment (Analgesic [place]) 1 mara PRN QID PRN TP MUSCLE PAIN Last administered on 02/27/19 09:18; Start 02/23/19 at 18:00 Pantoprazole Sodium (Protonix) 40 mg DAILYAC PO Last administered on 02/27/19at 09:19; Start 02/24/19 at 17:30 Aspirin (Ecotrin) 325 mg 1X ONCE PO Last administered on 02/25/19at 09:31; Start 02/25/19 at 09:15; Stop 02/25/19 at 09:16; Status DC Aspirin (Ecotrin) 81 mg DAILYWBKFT PO Last administered on 02/27/19at 09:19; Start 02/26/19 at 08:00 Potassium Chloride (Klor-Con) 40 meq 1X ONCE PO Last administered on 02/25/19at 09:32; Start 02/25/19 at 09:15; Stop 02/25/19 at 09:16; Status DC Magnesium Sulfate/ Dextrose 100 ml @ 25 mls/hr 1X ONCE IV Last administered on 02/25/19at 11:49; Start 02/25/19 at 11:30; Stop 02/25/19 at 15:29; Status DC Piperacillin Sod/ Tazobactam Sod (Zosyn Per Pharmacy) 1 each PRN DAILY PRN MC SEE COMMENTS; Start 02/25/19 at 16:45 Piperacillin Sod/ Tazobactam Sod 2.25 gm/Sodium Chloride 50 ml @ 100 mls/hr Q6HRS IV Last administered on 02/27/19at 05:34; Start 02/25/19 at 18:00 Bisacodyl (Dulcolax Tab) 10 mg 1X ONCE PO Last administered on 02/26/19at 10:00; Start 02/26/19 at 10:00; Stop 02/26/19 at 10:01; Status DC Methylprednisolone Acetate (DEPO-Medrol 40MG VIAL) 40 mg 1X ONCE IM ; Start 02/26/19 at 12:15; Stop 02/26/19 at 12:20; Status DC Bupivacaine HCl (Sensorcaine-Mpf 0.25%) 10 ml 1X ONCE IJ ; Start 02/26/19 at 12:15; Stop 02/26/19 at 12:20; Status DC Methylprednisolone Acetate (DEPO-Medrol 40MG VIAL) 40 mg 1X ONCE IM ; Start 02/27/19 at 08:00; Stop 02/27/19 at 08:01; Status DC Bupivacaine HCl (Sensorcaine-Mpf 0.25%) 10 ml 1X ONCE IJ ; Start 02/27/19 at 08:00; Stop 02/27/19 at 08:01; Status DC Lactobacillus Rhamnosus (Culturelle) 1 cap BID PO Last administered on 02/27/19at 09:19; Start 02/26/19 at 21:00 Diclofenac Sodium (Voltaren) 1 mara BID TP Last administered on 02/27/19at 09:19; Start 02/26/19 at 21:00 Artificial Tears (Artificial Tears) 1 drop PRN Q2HR PRN OU DRY EYE Last administered on 02/27/19at 10:53; Start 02/26/19 at 19:15 Ketotifen Fumarate (Zaditor) 1 drop 1X ONCE OU ; Start 02/27/19 at 09:30; Stop 02/27/19 at 09:31; Status DC Atorvastatin Calcium (Lipitor) 20 mg QHS PO ; Start 02/27/19 at 21:00 Active Scripts Active Reported Amlodipine Besylate 10 Mg Tablet 10 Mg PO DAILY Tramadol Hcl 50 Mg Tablet 50 Mg PO Q4H PRN Fish Oil 1,000 Mg Capsule ([place]-3 Fatty Acids/Fish Oil) 1 Each Capsule 1 Each PO Vitamin D3 (Cholecalciferol (Vitamin D3)) 5,000 Unit Capsule 5,000 Unit PO Acetaminophen 500 Mg Tablet 500 Mg PO Aspir 81 (Aspirin) 81 Mg Tablet.dr 81 Mg PO Hydrochlorothiazide Tablet (Hydrochlorothiazide) 25 Mg Tablet 25 Mg PO DAILY Pravastatin Sodium 40 Mg Tablet 40 Mg PO DAILY Miralax (Polyethylene Glycol 3350) 17 Gm Powd.pack 1 Pkt PO DAILY [fiber] Temazepam 30 Mg Capsule 30 Mg PO HS PRN Cozaar (Losartan Potassium) 100 Mg Tablet 100 Mg PO DAILY Vitals/I & O Vital Sign - Last 24 Hours 02/26/19 02/26/19 02/26/19 02/26/19 11:40 12:00 13:00 14:00 Pulse 64 64 64 Resp 18 18 18 B/P (MAP) 98/70 (79) 105/72 (83) 98/62 (74) Pulse Ox 97 98 97 O2 Delivery Nasal Cannula Nasal Cannula Nasal Cannula Nasal Cannula O2 Flow Rate 2.0 2.0 2.0 2.0 02/26/19 02/26/19 02/26/19 02/26/19 15:00 16:00 16:18 17:00 Pulse 62 56 62 Resp 18 18 18 B/P (MAP) 94/54 (67) 106/46 (66) 122/58 (79) Pulse Ox 97 97 97 O2 Delivery Nasal Cannula Nasal Cannula Nasal Cannula Nasal Cannula O2 Flow Rate 2.0 2.0 2.0 2.0 02/26/19 02/26/19 02/26/19 02/26/19 18:00 19:00 19:15 19:45 Pulse 68 68 67 64 Resp 18 20 B/P (MAP) 111/58 (75) 123/54 (77) 134/57 (82) 147/70 (95) Pulse Ox 97 98 O2 Delivery Nasal Cannula Nasal Cannula O2 Flow Rate 2.0 2.0 02/26/19 02/26/19 02/26/19 02/26/19 20:00 20:00 21:00 21:33 Temp 98.6 98.6 Pulse 64 68 Resp 22 24 20 B/P (MAP) 139/83 (101) 124/62 (82) Pulse Ox 100 100 100 O2 Delivery Nasal Cannula Nasal Cannula Nasal Cannula Nasal Cannula O2 Flow Rate 2.0 2.0 2.0 2.0 02/26/19 02/26/19 02/26/19 02/27/19 22:00 23:00 23:59 00:00 Temp 98.4 98.4 Pulse 68 64 65 Resp 20 22 18 B/P (MAP) 135/53 (80) 124/57 (79) 105/63 (77) Pulse Ox 100 100 100 O2 Delivery Nasal Cannula Nasal Cannula Nasal Cannula Nasal Cannula O2 Flow Rate 2.0 2.0 2.0 2.0 02/27/19 02/27/19 02/27/19 02/27/19 01:00 02:00 03:00 03:41 Pulse 67 72 75 Resp 20 22 24 22 B/P (MAP) 98/52 (67) 86/51 (63) 97/53 (68) Pulse Ox 100 98 98 97 O2 Delivery Nasal Cannula Nasal Cannula Nasal Cannula Nasal Cannula O2 Flow Rate 2.0 2.0 2.0 2.0 02/27/19 02/27/19 02/27/19 02/27/19 04:00 04:00 04:00 04:41 Temp 98.0 98.0 Pulse 69 Resp 20 B/P (MAP) 110/59 (76) Pulse Ox 96 O2 Delivery Nasal Cannula Nasal Cannula Nasal Cannula O2 Flow Rate 2.0 2.0 2.0 2.0 02/27/19 02/27/19 02/27/19 02/27/19 05:00 06:00 06:30 06:45 Pulse 65 73 70 67 Resp 22 23 B/P (MAP) 113/57 (75) 111/49 (69) 111/49 (69) 96/46 (63) Pulse Ox 96 97 O2 Delivery Nasal Cannula Nasal Cannula O2 Flow Rate 2.0 2.0 02/27/19 02/27/19 02/27/19 02/27/19 07:00 07:43 08:00 09:00 Temp 97.9 97.9 Pulse 72 65 70 Resp 20 20 20 B/P (MAP) 96/46 (63) 91/74 (80) 111/52 (71) Pulse Ox 97 97 96 O2 Delivery Nasal Cannula Nasal Cannula Room Air Room Air O2 Flow Rate 2.0 2.0 02/27/19 02/27/19 02/27/19 09:19 10:00 10:20 Pulse 61 Resp 18 20 18 B/P (MAP) 97/44 (61) Pulse Ox 94 95 95 O2 Delivery Nasal Cannula Room Air Nasal Cannula O2 Flow Rate 2.0 Intake and Output 02/26/19 02/26/19 02/27/19 15:00 23:00 07:00 Intake Total 50 ml 2112 ml 1225.31 ml Output Total 390 ml 825 ml 470 ml Balance -340 ml 1287 ml 755.31 ml JUNG AYALA III DO February 27, 2019 11:06
--- NOTE | 2019-02-27 11:35 | CARD ---
MR#: [id number] Date of Study: 02/27/2019 Ordering Physician: RENÉ SERRANO, Referring Physician: DEYANIRA ROBERTS, Tech: Erika Da Silva APPROVED REPORT EXAM: Two-dimensional and M-mode echocardiogram with Doppler and color Doppler. Other Information Quality : GoodHR: 70bpm INDICATION LV Function:Systolic Hypotension 2D DIMENSIONS RVDd3.2 (2.9-3.5cm)Left Atrium(2D)3.2 (1.6-4.0cm) IVSd1.2 (0.7-1.1cm)Aortic Root(2D)3.0 (2.0-3.7cm) LVDd4.7 (3.9-5.9cm)LVOT Diameter2.1 (1.8-2.4cm) PWd1.1 (0.7-1.1cm)LVDs3.0 (2.5-4.0cm) FS (%) 36.4 %SV66.5 ml LVEF(%)66.2 (>50%) LEFT VENTRICLE The left ventricle is normal size. There is mild to moderate concentric left ventricular hypertrophy. The left ventricular systolic function is normal. The Ejection Fraction is 55%. There is normal LV s egmental wall motion. RIGHT VENTRICLE The right ventricle is normal size. There is normal right ventricular wall thickness. The right ventr icular systolic function is normal. ATRIA The left atrium size is normal. The right atrium size is normal. The interatrial septum is intact wit h no evidence for an atrial septal defect or patent foramen ovale as noted on 2-D or Doppler imaging. AORTIC VALVE The aortic valve is normal in structure and function. Doppler and color-flow analysis was not perform ed. There is no significant aortic valvular stenosis. MITRAL VALVE The mitral valve is thickened but opens well. There is no evidence of mitral valve prolapse. There is no mitral valve stenosis. Doppler and color-flow analysis was not performed. TRICUSPID VALVE The tricuspid valve is normal in structure and function. Doppler and color-flow analysis was not perf ormed. There is no tricuspid valve stenosis. PULMONIC VALVE The pulmonic valve is not well visualized. Doppler and color-flow analysis was not performed. GREAT VESSELS The aortic root is normal in size. The IVC is normal in size and collapses >50% with inspiration. PERICARDIAL EFFUSION There is small left pleural effusion. There is no evidence of significant pericardial effusion. Critical Notification Critical Value: No <Conclusion> Limited 2D echo to assess LV function. The left ventricular systolic function is normal. The Ejection Fraction is 55%. There is normal LV segmental wall motion. There is no evidence of significant pericardial effusion. Signed by : Indra Hall, Electronically Approved : 02/27/2019 11:34:53
[2019-02-27] MEDS: ATORVASTATIN CALCIUM 20 MG TABLET PO SCH (20:23)
[2019-02-27] MEDS: TEMAZEPAM 15 MG CAPSULE PO PRN (20:23)
[2019-02-28] VITALS (14 sets, daily range): BP systolic 48–153; BP diastolic 29–76
[2019-02-28] MEDS: ACETAMINOPHEN 325 MG TABLET. PO PRN (04:56)
[2019-02-28] MEDS: PIPERACILLIN/TAZOBACTAM 2.25 GM in IV NORMAL SALINE 50ML 50 ML IV SCH ×4 (05:03→23:23)
[2019-02-28] MEDS: POLYVINYL ALCOHOL 1.4% OPHTH SOLUTION 15ML BOTTLE. OU PRN (05:12)
[2019-02-28 06:57] LABS: HEMOGLOBIN 9.1 g/dL (12.0-15.5); RED BLOOD COUNT 2.83 x10^6/uL (3.50-5.40); RED CELL DISTRIBUTION WIDTH 13.9 % (11.5-14.5); WHITE BLOOD COUNT 7.8 x10^3/uL (4.0-11.0)
[2019-02-28] MEDS: LACTOBACILLUS RHAMNOSUS GG 1 CAPSULE. PO SCH ×2 (08:06→21:41)
[2019-02-28] MEDS: PANTOPRAZOLE 40 MG TABLET.DR. PO SCH (08:06)
[2019-02-28] MEDS: traMADol 50 MG TABLET PO PRN (08:06)
[2019-02-28] MEDS: ASPIRIN ENTERIC COATED 81 MG TABLET.DR. PO SCH (08:06)
[2019-02-28] MEDS: POLYETHYLENE GLYCOL 3350 17 GM PACKET. PO SCH ×2 (08:06→21:00)
[2019-02-28] MEDS: IV RINGERS,LACTATED 1000ML 1,000 ML IV SCH (08:30)
--- NOTE | 2019-02-28 08:54 | PDOC ---
PROGRESS NOTES Subjective Subjective She c/o SOB sitting in bedside recliner. Objective Objective Vital Signs Date Time Temp Pulse Resp B/P (MAP) Pulse Ox O2 Delivery O2 Flow Rate FiO2 02/28/19 08:06 Room Air 2.0 02/28/19 07:00 98.2 73 16 99/54 (69) 91 98.2 Intake and Output 02/28/19 07:00 Intake Total 1780 ml Output Total 3370 ml Balance -1590 ml Intake Oral 1080 ml IV Total 700 ml Output Urine Total 3370 ml # Bowel Movements 3 Physical Exam Physical Exam She is alert and sitting in beside recliner and using oxygen by nasal canula. She did walk for 100' with physical therapy using a roller walker. Assessment Assessment Problems Medical Problems: (1) Septic shock Status: Acute Plan Plan of Care To SNF when medically stable. Comment Review of Relevant I have reviewed the following items ne (where applicable) has been applied. Labs Laboratory Tests Test 02/27/19 05:45 02/28/19 06:50 White Blood Count 6.8 x10^3/uL (4.0-11.0) 7.8 x10^3/uL (4.0-11.0) Red Blood Count 2.41 x10^6/uL (3.50-5.40) 2.83 x10^6/uL (3.50-5.40) Hemoglobin 7.7 g/dL (12.0-15.5) 9.1 g/dL (12.0-15.5) Hematocrit 23.4 % (36.0-47.0) 27.0 % (36.0-47.0) Mean Corpuscular Volume 97 fL (79-100) 95 fL (79-100) Mean Corpuscular Hemoglobin 32 pg (25-35) 32 pg (25-35) Mean Corpuscular Hemoglobin Concent 33 g/dL (31-37) 34 g/dL (31-37) Red Cell Distribution Width 14.1 % (11.5-14.5) 13.9 % (11.5-14.5) Platelet Count 201 x10^3/uL (140-400) 259 x10^3/uL (140-400) Heparin Anti-Xa Act, Unfractionated < 0.10 IU/mL (0.30-0.70) Laboratory Tests Test 02/28/19 06:50 White Blood Count 7.8 x10^3/uL (4.0-11.0) Red Blood Count 2.83 x10^6/uL (3.50-5.40) Hemoglobin 9.1 g/dL (12.0-15.5) Hematocrit 27.0 % (36.0-47.0) Mean Corpuscular Volume 95 fL (79-100) Mean Corpuscular Hemoglobin 32 pg (25-35) Mean Corpuscular Hemoglobin Concent 34 g/dL (31-37) Red Cell Distribution Width 13.9 % (11.5-14.5) Platelet Count 259 x10^3/uL (140-400) Microbiology 02/22/19 Blood Culture - Final, Complete NO GROWTH AFTER 5 DAYS 02/22/19 Urine Culture - Final, Complete 02/22/19 Urine Culture Result 1 (JIN) - Final, Complete 02/22/19 Antimicrobic Susceptibility - Final, Complete Medications Current Medications Sodium Chloride 1,000 ml @ 1,000 mls/hr 1X ONCE IV Last administered on 02/22/19at 21:23; Start 02/22/19 at 20:45; Stop 02/22/19 at 21:44; Status DC Acetaminophen (Tylenol) 650 mg 1X ONCE PO Last administered on 02/22/19at 21:22; Start 02/22/19 at 20:45; Stop 02/22/19 at 20:52; Status DC Piperacillin Sod/ Tazobactam Sod (Zosyn Per Pharmacy) 1 each PRN DAILY PRN MC SEE COMMENTS; Start 02/22/19 at 20:45; Stop 02/23/19 at 14:53; Status DC Piperacillin Sod/ Tazobactam Sod 3.375 gm/Sodium Chloride 50 ml @ 100 mls/hr ONCE ONCE IV Last administered on 02/22/19at 21:23; Start 02/22/19 at 21:00; Stop 02/22/19 at 21:29; Status DC Sodium Chloride 1,000 ml @ 1,000 mls/hr 1X ONCE IV Last administered on 02/22/19at 23:44; Start 02/22/19 at 23:30; Stop 02/23/19 at 00:29; Status DC Sodium Chloride 1,000 ml @ 75 mls/hr [id number] IV Last administered on 02/23/19at 07:38; Start 02/22/19 at 23:30; Stop 02/23/19 at 08:17; Status DC Iohexol (Omnipaque 300 Mg/ml) 60 ml 1X ONCE IV Last administered on 02/23/19at 00:02; Start 02/23/19 at 00:15; Stop 02/23/19 at 00:16; Status DC Info (CONTRAST GIVEN -- Rx MONITORING) 1 each PRN DAILY PRN MC SEE COMMENTS; Start 02/23/19 at 00:15; Stop 02/25/19 at 00:14; Status DC Piperacillin Sod/ Tazobactam Sod 2.25 gm/Sodium Chloride 50 ml @ 100 mls/hr Q 6HRS IV Last administered on 02/23/19at 12:26; Start 02/23/19 at 06:00; Stop 02/23/19 at 14:34; Status DC Sodium Chloride 1,000 ml @ 1,000 mls/hr 1X ONCE IV ; Start 02/23/19 at 01:00; Stop 02/23/19 at 01:45; Status DC Sodium Chloride 500 ml @ 500 mls/hr 1X ONCE IV Last administered on 02/23/19at 02:07; Start 02/23/19 at 02:00; Stop 02/23/19 at 02:59; Status DC Norepinephrine Bitartrate 250 ml @ 0 mls/hr 1X ONCE IV ; Start 02/23/19 at 02:00; Stop 02/23/19 at 02:01; Status DC Sodium Chloride 500 ml @ 500 mls/hr 1X ONCE IV Last administered on 02/23/19at 06:10; Start 02/23/19 at 02:00; Stop 02/23/19 at 02:59; Status DC Norepinephrine Bitartrate 250 ml @ 1.875 mls/ hr CONT PRN IV SEE I/O RECORD Last administered on 02/26/19at 09:00; Start 02/23/19 at 03:15; Stop 02/27/19 at 14:17; Status DC Ondansetron HCl (Zofran) 4 mg PRN Q6HRS PRN IV NAUSEA/VOMITING Last administered on 02/24/19at 23:21; Start 02/23/19 at 03:15 Iohexol (Omnipaque 300 Mg/ml) 100 ml STK-MED ONCE .ROUTE ; Start 02/23/19 at 04:24; Stop 02/23/19 at 04:25; Status DC Sodium Chloride 500 ml @ 500 mls/hr 1X ONCE IV Last administered on 02/23/19at 08:28; Start 02/23/19 at 07:45; Stop 02/23/19 at 08:44; Status DC Acetaminophen (Tylenol) 650 mg PRN Q6HRS PRN PO MILD PAIN / TEMP Last administered on 02/28/19 04:56; Start 02/23/19 at 08:15 Ringer's Solution 1,000 ml @ 100 mls/hr Q10H IV Last administered on 02/27/19at 23:15; Start 02/23/19 at 08:30 Ringer's Solution 500 ml @ 500 mls/hr 1X ONCE IV Last administered on 02/23/19at 09:23; Start 02/23/19 at 09:15; Stop 02/23/19 at 10:14; Status DC Dopamine HCl/ Dextrose 250 ml @ 5.749 mls/ hr CONT PRN IV SEE I/O RECORD Last administered on 02/25/19at 05:11; Start 02/23/19 at 12:15 Tramadol HCl (Ultram) 50 mg PRN Q6HRS PRN PO MODERATE-SEVERE PAIN Last administered on 02/28/19at 08:06; Start 02/23/19 at 12:30 Heparin Sodium (Porcine) (Heparin Sodium) 4,000 unit 1X ONCE IV Last administered on 02/23/19 13:30; Start 02/23/19 at 13:00; Stop 02/23/19 at 13:01; Status DC Heparin Sodium/ Dextrose 500 ml @ 0 mls/hr CONT PRN IV SEE I/O RECORD Last administered on 02/25/19at 05:12; Start 02/23/19 at 13:00; Stop 02/26/19 at 13:01; Status DC Heparin Sodium (Porcine) (Heparin Sodium) 1,900 unit PRN Q6HRS PRN IV FOR UFH LEVEL LESS THAN 0.2 Last administered on 02/25/19at 09:35; Start 02/23/19 at 13:00; Stop 02/26/19 at 13:01; Status DC Polyethylene Glycol (miraLAX PACKET) 17 gm PRN BID PRN PO CONSTIPATION Last administered on 02/23/19 14:38; Start 02/23/19 at 13:15; Stop 02/23/19 at 14:59; Status DC Info (Anti-Coagulation Monitoring By Pharmacy) 1 each PRN DAILY PRN MC SEE COMMENTS Last administered on 02/26/19 08:00; Start 02/23/19 at 13:30; Stop 02/26/19 at 13:50; Status DC Temazepam (Restoril) 15 mg PRN QHS PRN PO INSOMNIA Last administered on 02/27/19 20:23; Start 02/23/19 at 14:45 Piperacillin Sod/ Tazobactam Sod 2.25 gm/Sodium Chloride 50 ml @ 100 mls/hr Q6HRS IV ; Start 02/23/19 at 18:00; Stop 02/23/19 at 18:00; Status DC Polyethylene Glycol (miraLAX PACKET) 17 gm BID PO Last administered on 02/27/19at 10:53; Start 02/23/19 at 21:00 Multi-Ingredient Ointment (Analgesic [place]) 1 mara PRN QID PRN TP MUSCLE PAIN Last administered on 02/27/19 09:18; Start 02/23/19 at 18:00 Pantoprazole Sodium (Protonix) 40 mg DAILYAC PO Last administered on 02/28/19 08:06; Start 02/24/19 at 17:30 Aspirin (Ecotrin) 325 mg 1X ONCE PO Last administered on 02/25/19 09:31; Start 02/25/19 at 09:15; Stop 02/25/19 at 09:16; Status DC Aspirin (Ecotrin) 81 mg DAILYWBKFT PO Last administered on 02/28/19 08:06; Start 02/26/19 at 08:00 Potassium Chloride (Klor-Con) 40 meq 1X ONCE PO Last administered on 02/25/19 09:32; Start 02/25/19 at 09:15; Stop 02/25/19 at 09:16; Status DC Magnesium Sulfate/ Dextrose 100 ml @ 25 mls/hr 1X ONCE IV Last administered on 02/25/19 11:49; Start 02/25/19 at 11:30; Stop 02/25/19 at 15:29; Status DC Piperacillin Sod/ Tazobactam Sod (Zosyn Per Pharmacy) 1 each PRN DAILY PRN MC SEE COMMENTS; Start 02/25/19 at 16:45 Piperacillin Sod/ Tazobactam Sod 2.25 gm/Sodium Chloride 50 ml @ 100 mls/hr Q6HRS IV Last administered on 02/28/19at 05:03; Start 02/25/19 at 18:00 Bisacodyl (Dulcolax Tab) 10 mg 1X ONCE PO Last administered on 02/26/19at 10:00; Start 02/26/19 at 10:00; Stop 02/26/19 at 10:01; Status DC Methylprednisolone Acetate (DEPO-Medrol 40MG VIAL) 40 mg 1X ONCE IM ; Start 02/26/19 at 12:15; Stop 02/26/19 at 12:20; Status DC Bupivacaine HCl (Sensorcaine-Mpf 0.25%) 10 ml 1X ONCE IJ ; Start 02/26/19 at 12:15; Stop 02/26/19 at 12:20; Status DC Methylprednisolone Acetate (DEPO-Medrol 40MG VIAL) 40 mg 1X ONCE IM ; Start 02/27/19 at 08:00; Stop 02/27/19 at 08:01; Status DC Bupivacaine HCl (Sensorcaine-Mpf 0.25%) 10 ml 1X ONCE IJ ; Start 02/27/19 at 08:00; Stop 02/27/19 at 08:01; Status DC Lactobacillus Rhamnosus (Culturelle) 1 cap BID PO Last administered on 02/28/19at 08:06; Start 02/26/19 at 21:00 Diclofenac Sodium (Voltaren) 1 mara BID TP Last administered on 02/27/19at 20:24; Start 02/26/19 at 21:00 Artificial Tears (Artificial Tears) 1 drop PRN Q2HR PRN OU DRY EYE Last administered on 02/28/19at 05:12; Start 02/26/19 at 19:15 Ketotifen Fumarate (Zaditor) 1 drop 1X ONCE OU Last administered on 02/27/19at 12:21; Start 02/27/19 at 09:30; Stop 02/27/19 at 09:31; Status DC Atorvastatin Calcium (Lipitor) 20 mg QHS PO Last administered on 5/9/19at 20:23; Start 02/27/19 at 21:00 Active Scripts Active Reported Amlodipine Besylate 10 Mg Tablet 10 Mg PO DAILY Tramadol Hcl 50 Mg Tablet 50 Mg PO Q4H PRN Fish Oil 1,000 Mg Capsule (Wilson-3 Fatty Acids/Fish Oil) 1 Each Capsule 1 Each PO Vitamin D3 (Cholecalciferol (Vitamin D3)) 5,000 Unit Capsule 5,000 Unit PO Acetaminophen 500 Mg Tablet 500 Mg PO Aspir 81 (Aspirin) 81 Mg Tablet.dr 81 Mg PO Hydrochlorothiazide Tablet (Hydrochlorothiazide) 25 Mg Tablet 25 Mg PO DAILY Pravastatin Sodium 40 Mg Tablet 40 Mg PO DAILY Miralax (Polyethylene Glycol 3350) 17 Gm Powd.pack 1 Pkt PO DAILY [fiber] Temazepam 30 Mg Capsule 30 Mg PO HS PRN Cozaar (Losartan Potassium) 100 Mg Tablet 100 Mg PO DAILY Vitals/I & O Vital Sign - Last 24 Hours 02/27/19 02/27/19 02/27/19 02/27/19 09:00 09:19 10:00 11:04 Pulse 70 61 60 Resp 20 18 20 18 B/P (MAP) 111/52 (71) 97/44 (61) 127/74 (91) Pulse Ox 96 94 95 93 O2 Delivery Room Air Nasal Cannula Room Air Room Air O2 Flow Rate 2.0 02/27/19 02/27/19 02/27/19 02/27/19 11:41 12:25 13:10 14:15 Temp 97.9 97.5 97.9 97.5 Pulse 59 63 68 Resp 18 16 18 B/P (MAP) 113/62 (79) 104/60 (75) 121/55 (77) Pulse Ox 91 95 98 O2 Delivery Room Air Room Air Room Air Room Air O2 Flow Rate 2.0 02/27/19 02/27/19 02/27/19 02/27/19 15:00 19:00 19:31 20:23 Temp 97.5 97.7 97.5 97.7 Pulse 68 67 Resp 18 16 18 B/P (MAP) 121/55 (77) 128/59 (82) Pulse Ox 98 97 97 O2 Delivery Room Air Room Air Room Air Room Air 02/27/19 02/27/19 02/28/19 02/28/19 21:23 23:07 03:30 07:00 Temp 98.6 98.4 98.2 98.6 98.4 98.2 Pulse 78 80 73 Resp 18 16 16 16 B/P (MAP) 142/71 (94) 101/54 (70) 99/54 (69) Pulse Ox 97 99 96 91 O2 Delivery Room Air Nasal Cannula Nasal Cannula Room Air O2 Flow Rate 2.0 2.0 02/28/19 08:06 O2 Delivery Room Air O2 Flow Rate 2.0 Intake and Output 02/27/19 02/27/19 02/28/19 15:00 23:00 07:00 Intake Total 1300 ml 480 ml Output Total 570 ml 2000 ml 800 ml Balance 730 ml -1520 ml -800 ml Nutrition Consultation Dietary Evaluation: Recommendations by RD: Increase Calorie Intake, Protein supplementation Comments: Continue w/GI soft/cardiac diet as ordered, honor food preferences, and provide snacks as requested REC Ensure (strawberry) w/lunch trays Expected Outcomes/Goals: PO intake to meet >75% est needs Malnutrition Findings: Food and Nutrition Intake (Mod: <75% est energy req 7days Weight Status: Appropriate ERIN PRIETO MD February 28, 2019 08:54
[2019-02-28] MEDS ORDERED: IV NORMAL SALINE 500ML BAG 500 ML IV ONE (09:30)
--- NOTE | 2019-02-28 09:45 | PDOC ---
RENÉ SERRANO WARRANTY CLERK 02/28/19 0945: CARDIO Progress Notes Date and Time Date of Service 02/28/2019 Time of Evaluation 0920 Subjective Subjective: No Chest Pain, No Palpitations, Other (complains of SOA and don't feel good) Vitals Vitals Vital Signs Date Time Temp Pulse Resp B/P (MAP) Pulse Ox O2 Delivery O2 Flow Rate FiO2 02/28/19 08:06 Room Air 2.0 02/28/19 07:00 98.2 73 16 99/54 (69) 91 98.2 Weight Weight [ ] Input and Output Intake and Output Intake and Output 02/28/19 07:00 Intake Total 1780 ml Output Total 3370 ml Balance -1590 ml Intake Oral 1080 ml IV Total 700 ml Output Urine Total 3370 ml # Bowel Movements 3 Laboratory Labs Laboratory Tests Test 02/28/19 06:50 White Blood Count 7.8 x10^3/uL (4.0-11.0) Red Blood Count 2.83 x10^6/uL (3.50-5.40) Hemoglobin 9.1 g/dL (12.0-15.5) Hematocrit 27.0 % (36.0-47.0) Mean Corpuscular Volume 95 fL (79-100) Mean Corpuscular Hemoglobin 32 pg (25-35) Mean Corpuscular Hemoglobin Concent 34 g/dL (31-37) Red Cell Distribution Width 13.9 % (11.5-14.5) Platelet Count 259 x10^3/uL (140-400) Microbiology Micro Microbiology 02/22/19 Blood Culture - Final, Complete NO GROWTH AFTER 5 DAYS 02/22/19 Urine Culture - Final, Complete 02/22/19 Urine Culture Result 1 (JIN) - Final, Complete 02/22/19 Antimicrobic Susceptibility - Final, Complete Physical Exam HEENT: Neck Supple W Full Motion Chest: Symmetric LUNGS: Clear to Auscultation, Other (faint crackles to bases) Heart: S1S2, RRR (SR ) Abdomen: Soft N/T Extremities: No Calf Tenderness, Other (trace LE edema) Neurology: alert, oriented, follow commands Assessment Assessment 1. Sepsis/shock: UTI. refractory hypotension 2. NSTEMI: Trop 12. Possibly type 2. EF and WM nml. EKG with RBBB. No known hx of CAD. Recent EF and WM nml. 3. Mild Colonic ileus: resolved. had BM. GI following 4. PAD: with prior fempop and CEA 5. hx of HTN 6. 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 Sudden dyspnea: mild CHF Recommendations 1. Bolus IV NS. Pt sitting up and will place back in bed and elevate LE. 2. No BP meds at this time. ASA. Hemogram, lactic acid, PCXR stat, troponin. EKG 3. Antibiotics per PCP. 4. Remains dependent to volume and O2. Await above tests and will consider for CTA chest . SOCRATES MARCUS MD 02/28/19 1040: CARDIO Progress Notes Assessment Assessment Patient seen and examined. Agree with PODIATRY PROFESSOR's assessment and plan. Non-STEMI type 2/demand ischemia 2-D echo showed normal LV function without any wall motion abnormalities Plan ischemic evaluation as an outpatient per primary building custodian RENÉ SERRANO APRN February 28, 2019 09:45 SOCRATES MARCUS MD February 28, 2019 10:40
--- NOTE | 2019-02-28 10:07 | RAD ---
Portable chest, 02/28/2019: HISTORY: Dyspnea Comparison is made to a study from 02/24/2019. A right PICC remains in place extending into the superior vena cava. The heart remains at the upper limits of normal in size. There is calcific plaquing of the aorta. There is mild unchanged interstitial and fissural prominence suggesting low-grade interstitial edema. The right lateral costophrenic angle is blunted raising the possibility of a small amount pleural fluid. IMPRESSION: Ongoing mild interstitial prominence suggesting low-grade interstitial edema due to congestive heart failure. Electronically signed by: Aubrey Kumar MD (02/28/2019 10:04 AM) [facility]
[2019-02-28] MEDS ORDERED: ALTEPLASE 1MG SYRINGE. INT CAT ONE (10:15)
[2019-02-28 10:27] LABS: HEMATOCRIT 30.5 % (36.0-47.0); RED BLOOD COUNT 3.18 x10^6/uL (3.50-5.40); RED CELL DISTRIBUTION WIDTH 13.9 % (11.5-14.5); WHITE BLOOD COUNT 9.3 x10^3/uL (4.0-11.0)
--- NOTE | 2019-02-28 10:59 | PDOC ---
[facility] PROGRESS NOTE Chief Complaint Chief Complaint Shakes and nausea and sepsis Critical hypotension Elevated troponin History of Present Illness History of Present Illness Patient was seen and examined morning on the telemetry floor The nurse to call me to the bedside explained that the patient did not seem well I agree. Upon my arrival the patient is up in the chair stating she doesn't feel well and looks quite weak She is moaning a little bit Slightly tachypneic The nurse had turned off her IV fluids because she was short of breath I had the nurse check a blood pressure and is down to 48/29 Medical in transfer the patient back to the ICU and start her back on her norepinephrine drip Vitals Vitals Vital Signs Date Time Temp Pulse Resp B/P (MAP) Pulse Ox O2 Delivery O2 Flow Rate FiO2 02/28/19 10:44 97.7 74 18 134/66 (88) 94 Nasal Cannula 2.0 97.7 Physical Exam General: moderate distress, Other (appears frail weak short of breath and scared) Heart: Other (soft S1-S2 intermittent tachycardia) Lungs: Clear, Other (mostly clear but some subtle crackles) Abdomen: Normal bowel sounds Extremities: No clubbing, No cyanosis, No edema, No tenderness/swelling, Other (Decreased peripheral pulses in RUE, LUE and LLE, good pulses RLE) Skin: No rashes, No breakdown, No significant lesion Labs LABS Laboratory Tests Test 02/28/19 06:50 02/28/19 10:10 White Blood Count 7.8 x10^3/uL (4.0-11.0) 9.3 x10^3/uL (4.0-11.0) Red Blood Count 2.83 x10^6/uL (3.50-5.40) 3.18 x10^6/uL (3.50-5.40) Hemoglobin 9.1 g/dL (12.0-15.5) 10.0 g/dL (12.0-15.5) Hematocrit 27.0 % (36.0-47.0) 30.5 % (36.0-47.0) Mean Corpuscular Volume 95 fL (79-100) 96 fL (79-100) Mean Corpuscular Hemoglobin 32 pg (25-35) 31 pg (25-35) Mean Corpuscular Hemoglobin Concent 34 g/dL (31-37) 33 g/dL (31-37) Red Cell Distribution Width 13.9 % (11.5-14.5) 13.9 % (11.5-14.5) Platelet Count 259 x10^3/uL (140-400) 288 x10^3/uL (140-400) Troponin I Quantitative 0.714 ng/mL (0.000-0.055) Review of Systems Review of Systems She complains of shortness of breath weakness Assessment and Plan Assessmemt and Plan Problems Medical Problems: (1) Septic shock Status: Acute Current critical hypotension with recent sepsis NSTEMI: Mild Colonic ileus PAD Hx of HTN Valvular insufficiency: Mild AI, mild to mod MR, Mild TR Sudden dyspnea: mild CHF Plan Transfer back to ICU on norepinephrine drip Follow blood pressures closely We'll continue antibiotics( Zosyn) Appreciate subspecialist input Frequent labs Full code DVT prophylaxis I notified cardiology and discussed with the nurse Total time 32 minutes Comment Review of Relevant I have reviewed the following items ne (where applicable) has been applied. Labs Laboratory Tests Test 02/27/19 05:45 02/28/19 06:50 02/28/19 10:10 White Blood Count 6.8 x10^3/uL (4.0-11.0) 7.8 x10^3/uL (4.0-11.0) 9.3 x10^3/uL (4.0-11.0) Red Blood Count 2.41 x10^6/uL (3.50-5.40) 2.83 x10^6/uL (3.50-5.40) 3.18 x10^6/uL (3.50-5.40) Hemoglobin 7.7 g/dL (12.0-15.5) 9.1 g/dL (12.0-15.5) 10.0 g/dL (12.0-15.5) Hematocrit 23.4 % (36.0-47.0) 27.0 % (36.0-47.0) 30.5 % (36.0-47.0) Mean Corpuscular Volume 97 fL (79-100) 95 fL (79-100) 96 fL (79-100) Mean Corpuscular Hemoglobin 32 pg (25-35) 32 pg (25-35) 31 pg (25-35) Mean Corpuscular Hemoglobin Concent 33 g/dL (31-37) 34 g/dL (31-37) 33 g/dL (31-37) Red Cell Distribution Width 14.1 % (11.5-14.5) 13.9 % (11.5-14.5) 13.9 % (11.5-14.5) Platelet Count 201 x10^3/uL (140-400) 259 x10^3/uL (140-400) 288 x10^3/uL (140-400) Heparin Anti-Xa Act, Unfractionated < 0.10 IU/mL (0.30-0.70) Troponin I Quantitative 0.714 ng/mL (0.000-0.055) Laboratory Tests Test 02/28/19 06:50 02/28/19 10:10 White Blood Count 7.8 x10^3/uL (4.0-11.0) 9.3 x10^3/uL (4.0-11.0) Red Blood Count 2.83 x10^6/uL (3.50-5.40) 3.18 x10^6/uL (3.50-5.40) Hemoglobin 9.1 g/dL (12.0-15.5) 10.0 g/dL (12.0-15.5) Hematocrit 27.0 % (36.0-47.0) 30.5 % (36.0-47.0) Mean Corpuscular Volume 95 fL (79-100) 96 fL (79-100) Mean Corpuscular Hemoglobin 32 pg (25-35) 31 pg (25-35) Mean Corpuscular Hemoglobin Concent 34 g/dL (31-37) 33 g/dL (31-37) Red Cell Distribution Width 13.9 % (11.5-14.5) 13.9 % (11.5-14.5) Platelet Count 259 x10^3/uL (140-400) 288 x10^3/uL (140-400) Troponin I Quantitative 0.714 ng/mL (0.000-0.055) Microbiology 02/22/19 Blood Culture - Final, Complete NO GROWTH AFTER 5 DAYS 02/22/19 Urine Culture - Final, Complete 02/22/19 Urine Culture Result 1 (JIN) - Final, Complete 02/22/19 Antimicrobic Susceptibility - Final, Complete Medications Current Medications Sodium Chloride 1,000 ml @ 1,000 mls/hr 1X ONCE IV Last administered on 02/22/19at 21:23; Start 02/22/19 at 20:45; Stop 02/22/19 at 21:44; Status DC Acetaminophen (Tylenol) 650 mg 1X ONCE PO Last administered on 02/22/19at 21:22; Start 02/22/19 at 20:45; Stop 02/22/19 at 20:52; Status DC Piperacillin Sod/ Tazobactam Sod (Zosyn Per Pharmacy) 1 each PRN DAILY PRN MC SEE COMMENTS; Start 02/22/19 at 20:45; Stop 02/23/19 at 14:53; Status DC Piperacillin Sod/ Tazobactam Sod 3.375 gm/Sodium Chloride 50 ml @ 100 mls/hr ONCE ONCE IV Last administered on 02/22/19at 21:23; Start 02/22/19 at 21:00; Stop 02/22/19 at 21:29; Status DC Sodium Chloride 1,000 ml @ 1,000 mls/hr 1X ONCE IV Last administered on 02/22/19at 23:44; Start 02/22/19 at 23:30; Stop 02/23/19 at 00:29; Status DC Sodium Chloride 1,000 ml @ 75 mls/hr [id number] IV Last administered on 02/23/19at 07:38; Start 02/22/19 at 23:30; Stop 02/23/19 at 08:17; Status DC Iohexol (Omnipaque 300 Mg/ml) 60 ml 1X ONCE IV Last administered on 02/23/19at 00:02; Start 02/23/19 at 00:15; Stop 02/23/19 at 00:16; Status DC Info (CONTRAST GIVEN -- Rx MONITORING) 1 each PRN DAILY PRN MC SEE COMMENTS; Start 02/23/19 at 00:15; Stop 02/25/19 at 00:14; Status DC Piperacillin Sod/ Tazobactam Sod 2.25 gm/Sodium Chloride 50 ml @ 100 mls/hr Q6HRS IV Last administered on 02/23/19at 12:26; Start 02/23/19 at 06:00; Stop 02/23/19 at 14:34; Status DC Sodium Chloride 1,000 ml @ 1,000 mls/hr 1X ONCE IV ; Start 02/23/19 at 01:00; Stop 02/23/19 at 01:45; Status DC Sodium Chloride 500 ml @ 500 mls/hr 1X ONCE IV Last administered on 02/23/19at 02:07; Start 02/23/19 at 02:00; Stop 02/23/19 at 02:59; Status DC Norepinephrine Bitartrate 250 ml @ 0 mls/hr 1X ONCE IV ; Start 02/23/19 at 02:00; Stop 02/23/19 at 02:01; Status DC Sodium Chloride 500 ml @ 500 mls/hr 1X ONCE IV Last administered on 02/23/19at 06:10; Start 02/23/19 at 02:00; Stop 02/23/19 at 02:59; Status DC Norepinephrine Bitartrate 250 ml @ 1.875 mls/ hr CONT PRN IV SEE I/O RECORD Last administered on 02/26/19at 09:00; Start 02/23/19 at 03:15; Stop 02/27/19 at 14:17; Status DC Ondansetron HCl (Zofran) 4 mg PRN Q6HRS PRN IV NAUSEA/VOMITING Last administered on 02/24/19at 23:21; Start 02/23/19 at 03:15 Iohexol (Omnipaque 300 Mg/ml) 100 ml STK-MED ONCE .ROUTE ; Start 02/23/19 at 04:24; Stop 02/23/19 at 04:25; Status DC Sodium Chloride 500 ml @ 500 mls/hr 1X ONCE IV Last administered on 02/23/19at 08:28; Start 02/23/19 at 07:45; Stop 02/23/19 at 08:44; Status DC Acetaminophen (Tylenol) 650 mg PRN Q6HRS PRN PO MILD PAIN / TEMP Last administered on 02/28/19at 04:56; Start 02/23/19 at 08:15 Ringer's Solution 1,000 ml @ 100 mls/hr Q10H IV Last administered on 02/27/19at 23:15; Start 02/23/19 at 08:30 Ringer's Solution 500 ml @ 500 mls/hr 1X ONCE IV Last administered on 02/23/19 09:23; Start 02/23/19 at 09:15; Stop 02/23/19 at 10:14; Status DC Dopamine HCl/ Dextrose 250 ml @ 5.749 mls/ hr CONT PRN IV SEE I/O RECORD Last administered on 02/25/19at 05:11; Start 02/23/19 at 12:15 Tramadol HCl (Ultram) 50 mg PRN Q6HRS PRN PO MODERATE-SEVERE PAIN Last administered on 02/28/19 08:06; Start 02/23/19 at 12:30 Heparin Sodium (Porcine) (Heparin Sodium) 4,000 unit 1X ONCE IV Last administered on 02/23/19 13:30; Start 02/23/19 at 13:00; Stop 02/23/19 at 13:01; Status DC Heparin Sodium/ Dextrose 500 ml @ 0 mls/hr CONT PRN IV SEE I/O RECORD Last administered on 02/25/19 05:12; Start 02/23/19 at 13:00; Stop 02/26/19 at 13:01; Status DC Heparin Sodium (Porcine) (Heparin Sodium) 1,900 unit PRN Q6HRS PRN IV FOR UFH LEVEL LESS THAN 0.2 Last administered on 02/25/19 09:35; Start 02/23/19 at 13:00; Stop 02/26/19 at 13:01; Status DC Polyethylene Glycol (miraLAX PACKET) 17 gm PRN BID PRN PO CONSTIPATION Last administered on 02/23/19 14:38; Start 02/23/19 at 13:15; Stop 02/23/19 at 14:59; Status DC Info (Anti-Coagulation Monitoring By Pharmacy) 1 each PRN DAILY PRN MC SEE COMMENTS Last administered on 02/26/19 08:00; Start 02/23/19 at 13:30; Stop 02/26/19 at 13:50; Status DC Temazepam (Restoril) 15 mg PRN QHS PRN PO INSOMNIA Last administered on 02/27/19 20:23; Start 02/23/19 at 14:45 Piperacillin Sod/ Tazobactam Sod 2.25 gm/Sodium Chloride 50 ml @ 100 mls/hr Q6HRS IV ; Start 02/23/19 at 18:00; Stop 02/23/19 at 18:00; Status DC Polyethylene Glycol (miraLAX PACKET) 17 gm BID PO Last administered on 02/27/19at 10:53; Start 02/23/19 at 21:00 Multi-Ingredient Ointment (Analgesic [place]) 1 mara PRN QID PRN TP MUSCLE PAIN Last administered on 02/27/19at 09:18; Start 02/23/19 at 18:00 Pantoprazole Sodium (Protonix) 40 mg DAILYAC PO Last administered on 02/28/19at 08:06; Start 02/24/19 at 17:30 Aspirin (Ecotrin) 325 mg 1X ONCE PO Last administered on 02/25/19at 09:31; Start 02/25/19 at 09:15; Stop 02/25/19 at 09:16; Status DC Aspirin (Ecotrin) 81 mg DAILYWBKFT PO Last administered on 02/28/19at 08:06; Start 02/26/19 at 08:00 Potassium Chloride (Klor-Con) 40 meq 1X ONCE PO Last administered on 02/25/19at 09:32; Start 02/25/19 at 09:15; Stop 02/25/19 at 09:16; Status DC Magnesium Sulfate/ Dextrose 100 ml @ 25 mls/hr 1X ONCE IV Last administered on 02/25/19at 11:49; Start 02/25/19 at 11:30; Stop 02/25/19 at 15:29; Status DC Piperacillin Sod/ Tazobactam Sod (Zosyn Per Pharmacy) 1 each PRN DAILY PRN MC SEE COMMENTS; Start 02/25/19 at 16:45 Piperacillin Sod/ Tazobactam Sod 2.25 gm/Sodium Chloride 50 ml @ 100 mls/hr Q6HRS IV Last administered on 02/28/19at 05:03; Start 02/25/19 at 18:00 Bisacodyl (Dulcolax Tab) 10 mg 1X ONCE PO Last administered on 02/26/19at 10:00; Start 02/26/19 at 10:00; Stop 02/26/19 at 10:01; Status DC Methylprednisolone Acetate (DEPO-Medrol 40MG VIAL) 40 mg 1X ONCE IM ; Start 02/26/19 at 12:15; Stop 02/26/19 at 12:20; Status DC Bupivacaine HCl (Sensorcaine-Mpf 0.25%) 10 ml 1X ONCE IJ ; Start 02/26/19 at 12:15; Stop 02/26/19 at 12:20; Status DC Methylprednisolone Acetate (DEPO-Medrol 40MG VIAL) 40 mg 1X ONCE IM ; Start 02/27/19 at 08:00; Stop 02/27/19 at 08:01; Status DC Bupivacaine HCl (Sensorcaine-Mpf 0.25%) 10 ml 1X ONCE IJ ; Start 02/27/19 at 08:00; Stop 02/27/19 at 08:01; Status DC Lactobacillus Rhamnosus (Culturelle) 1 cap BID PO Last administered on 02/28/19at 08:06; Start 02/26/19 at 21:00 Diclofenac Sodium (Voltaren) 1 mara BID TP Last administered on 02/27/19at 20:24; Start 02/26/19 at 21:00 Artificial Tears (Artificial Tears) 1 drop PRN Q2HR PRN OU DRY EYE Last administered on 02/28/19at 05:12; Start 02/26/19 at 19:15 Ketotifen Fumarate (Zaditor) 1 drop 1X ONCE OU Last administered on 02/27/19at 12:21; Start 02/27/19 at 09:30; Stop 02/27/19 at 09:31; Status DC Atorvastatin Calcium (Lipitor) 20 mg QHS PO Last administered on 02/27/19at 20:23; Start 02/27/19 at 21:00 Sodium Chloride 500 ml @ 500 mls/hr 1X ONCE IV Last administered on 02/28/19at 09:30; Start 02/28/19 at 09:30; Stop 02/28/19 at 10:29; Status DC Alteplase, Recombinant (Cathflo For Central Catheter Clearance) 1 mg 1X ONCE INT CAT ; Start 02/28/19 at 10:15; Stop 02/28/19 at 10:16; Status DC Active Scripts Active Reported Amlodipine Besylate 10 Mg Tablet 10 Mg PO DAILY Tramadol Hcl 50 Mg Tablet 50 Mg PO Q4H PRN Fish Oil 1,000 Mg Capsule ([place]-3 Fatty Acids/Fish Oil) 1 Each Capsule 1 Each PO Vitamin D3 (Cholecalciferol (Vitamin D3)) 5,000 Unit Capsule 5,000 Unit PO Acetaminophen 500 Mg Tablet 500 Mg PO Aspir 81 (Aspirin) 81 Mg Tablet. 81 Mg PO Hydrochlorothiazide Tablet (Hydrochlorothiazide) 25 Mg Tablet 25 Mg PO DAILY Pravastatin Sodium 40 Mg Tablet 40 Mg PO DAILY Miralax (Polyethylene Glycol 3350) 17 Gm Powd.pack 1 Pkt PO DAILY [fiber] Temazepam 30 Mg Capsule 30 Mg PO HS PRN Cozaar (Losartan Potassium) 100 Mg Tablet 100 Mg PO DAILY Vitals/I & O Vital Sign - Last 24 Hours 02/27/19 02/27/19 02/27/19 02/27/19 11:04 11:41 12:25 13:10 Temp 97.9 97.9 Pulse 60 59 63 Resp 18 18 16 B/P (MAP) 127/74 (91) 113/62 (79) 104/60 (75) Pulse Ox 93 91 95 O2 Delivery Room Air Room Air Room Air Room Air O2 Flow Rate 2.0 02/27/19 02/27/19 02/27/19 02/27/19 14:15 15:00 19:00 19:31 Temp 97.5 97.5 97.7 97.5 97.5 97.7 Pulse 68 68 67 Resp 18 18 16 B/P (MAP) 121/55 (77) 121/55 (77) 128/59 (82) Pulse Ox 98 98 97 O2 Delivery Room Air Room Air Room Air Room Air 02/27/19 02/27/19 02/27/19 02/28/19 20:23 21:23 23:07 03:30 Temp 98.6 98.4 98.6 98.4 Pulse 78 80 Resp 18 18 16 16 B/P (MAP) 142/71 (94) 101/54 (70) Pulse Ox 97 97 99 96 O2 Delivery Room Air Room Air Nasal Cannula Nasal Cannula O2 Flow Rate 2.0 2.0 02/28/19 02/28/19 02/28/19 02/28/19 07:00 07:50 08:06 10:44 Temp 98.2 97.7 98.2 97.7 Pulse 73 74 Resp 16 18 B/P (MAP) 99/54 (69) 134/66 (88) Pulse Ox 91 94 O2 Delivery Room Air Nasal Cannula Room Air Nasal Cannula O2 Flow Rate 2.0 2.0 2.0 Intake and Output 02/27/19 02/27/19 02/28/19 15:00 23:00 07:00 Intake Total 1300 ml 480 ml Output Total 570 ml 2000 ml 800 ml Balance 730 ml -1520 ml -800 ml JUNG AYALA III DO February 28, 2019 10:59
[2019-02-28 11:21] LABS: CALCIUM 8.4 mg/dL (8.5-10.1); CREATININE 1.2 mg/dL (0.6-1.0); GFR 51.5; MAGNESIUM 1.8 mg/dL (1.8-2.4)
[2019-02-28] MEDS ORDERED: IV NORMAL SALINE 1000ML BAG 1,000 ML IV SCH (12:00)
[2019-02-28] MEDS: DICLOFENAC SODIUM 1% TOPICAL GEL 100GM TUBE. TP SCH ×2 (12:06→21:42)
[2019-02-28] MEDS ORDERED: IOHEXOL 350 MG/ML 100 ML VIAL. IV ONE (12:30)
--- NOTE | 2019-02-28 12:44 | EKG ---
[facility] [address] [place] [address] Test Date: 2019-02-28 Test Time: 09:53:53 Pat Name: BHARGAVI RODNEY Department: Room: 205 1 Gender: F [employer]: : 1935 Requested By: RENÉ SERRANO Order Number: [id number] Reading MD: Cmapos Vu MD Measurements Intervals [place] Rate: 76 P: 29 ND: 206 QRS: 159 QRSD: 86 T: 28 QT: 398 QTc: 452 Interpretive Statements SINUS RHYTHM RBBB POSSIBLE LATERAL ISCHEMIA Electronically Signed On 03-01-2019 11:40:12 CDT by Campos Vu MD
--- NOTE | 2019-02-28 14:43 | NUR ---
Patients was complaining of shortness of breath, and "just not feeling good" patients vitals obtained, blood pressure 48/29 left radial artery, heart rate 80, O2 at 96% on 2L per nasal cannula. LISA Cevallos on unit and was made aware, he ordered 500ml normal saline bolus. This RN administered the bolus, rechecked patients blood pressure it was 103/61 with heart rate of 86. Dr. Voss rounding and ordered to transfer to ICU if bolus did not help. Patient was put on frequent vitals. Patients blood pressure has maintained within normal limits. LISA Cevallos ordered a d-dimer. A and a consulted infectious disease. After D-dime came back elevated LISA Cevallos ordered a CTA of chest. Waiting for results. Patient placed on bedrest until result come back.
--- NOTE | 2019-02-28 14:45 | RAD ---
Examination: CT ANGIOGRAPHY CHEST History: Shortness of breath, chest pain, dyspnea Comparison/Correlation: CTA of the chest 07/01/2009 Findings: Axial images of chest were obtained following IV contrast according to pulmonary arteriography protocol. MIP images provided. Sagittal and coronal reformatted images provided. Respiratory motion limits evaluation at the upper lung handy. Right-sided PICC is present. Adequate pulmonary arterial opacification is noted. There is no pulmonary arterial thromboembolic disease. Small to moderate-sized bilateral pleural effusions are present greater on the right. Minimal adjacent bibasilar costophrenic sulcus atelectasis is present. Mild emphysematous involvement of the lung apices noted. Atheromatous, calcific involvement of the thoracic aorta is significant. Reflux of contrast into hepatic veins is noted and may represent mild right heart insufficiency. Debris within the stomach is partially seen. Bony structures are unremarkable. Impression: No pulmonary arterial thromboembolic disease although evaluation may be limited in regions of bibasilar lower lobe passive atelectasis due to moderate-sized bilateral pleural effusions. Centrilobular emphysema. PQRS Compliance Statement: One or more of the following individualized dose reduction techniques were utilized for this examination: 1. Automated exposure control 2. Adjustment of the mA and/or kV according to patient size 3. Use of iterative reconstruction technique Electronically signed by: Conner Dillon MD (02/28/2019 2:42 PM) [id number]
[2019-02-28] MEDS: ALBUTEROL SULFATE 2.5 MG/3 ML NEBU. NEB PRN (14:59)
[2019-02-28] MEDS ORDERED: FUROSEMIDE 20 MG/2 ML VIAL. IVP ONE (15:30)
--- NOTE | 2019-02-28 18:50 | PDOC ---
PULMONARY PROGRESS NOTES Vitals Vital Signs Date Time Temp Pulse Resp B/P (MAP) Pulse Ox O2 Delivery O2 Flow Rate FiO2 02/28/19 16:33 88 118/67 (84) 98 Nasal Cannula 2.0 02/28/19 15:26 98.3 19 98.3 Lungs: Clear, Other (mostly clear but some subtle crackles) Cardiovascular: S1, S2 Abdomen: Soft Extremities: No Edema Skin: Warm, Dry Labs Laboratory Tests Test 02/27/19 05:45 02/28/19 06:50 02/28/19 10:10 02/28/19 14:55 White Blood Count 6.8 x10^3/uL (4.0-11.0) 7.8 x10^3/uL (4.0-11.0) 9.3 x10^3/uL (4.0-11.0) Red Blood Count 2.41 x10^6/uL (3.50-5.40) 2.83 x10^6/uL (3.50-5.40) 3.18 x10^6/uL (3.50-5.40) Hemoglobin 7.7 g/dL (12.0-15.5) 9.1 g/dL (12.0-15.5) 10.0 g/dL (12.0-15.5) Hematocrit 23.4 % (36.0-47.0) 27.0 % (36.0-47.0) 30.5 % (36.0-47.0) Mean Corpuscular Volume 97 fL (79-100) 95 fL (79-100) 96 fL (79-100) Mean Corpuscular Hemoglobin 32 pg (25-35) 32 pg (25-35) 31 pg (25-35) Mean Corpuscular Hemoglobin Concent 33 g/dL (31-37) 34 g/dL (31-37) 33 g/dL (31-37) Red Cell Distribution Width 14.1 % (11.5-14.5) 13.9 % (11.5-14.5) 13.9 % (11.5-14.5) Platelet Count 201 x10^3/uL (140-400) 259 x10^3/uL (140-400) 288 x10^3/uL (140-400) Heparin Anti-Xa Act, Unfractionated < 0.10 IU/mL (0.30-0.70) D-Dimer (Zainab) 2.97 ug/mlFEU (0.00-0.50) Sodium Level 142 mmol/L (136-145) Potassium Level 4.0 mmol/L (3.5-5.1) Chloride Level 105 mmol/L (98-107) Carbon Dioxide Level 29 mmol/L (21-32) Anion Gap 8 (6-14) Blood Urea Nitrogen 16 mg/dL (7-20) Creatinine 1.2 mg/dL (0.6-1.0) Estimated GFR (Cockcroft-Gault) 51.5 Glucose Level 85 mg/dL (70-99) Calcium Level 8.4 mg/dL (8.5-10.1) Magnesium Level 1.8 mg/dL (1.8-2.4) Troponin I Quantitative 0.714 ng/mL (0.000-0.055) Lactic Acid Level 2.4 mmol/L (0.4-2.0) 1.7 mmol/L (0.4-2.0) Laboratory Tests Test 02/28/19 06:50 02/28/19 10:10 02/28/19 14:55 White Blood Count 7.8 x10^3/uL (4.0-11.0) 9.3 x10^3/uL (4.0-11.0) Red Blood Count 2.83 x10^6/uL (3.50-5.40) 3.18 x10^6/uL (3.50-5.40) Hemoglobin 9.1 g/dL (12.0-15.5) 10.0 g/dL (12.0-15.5) Hematocrit 27.0 % (36.0-47.0) 30.5 % (36.0-47.0) Mean Corpuscular Volume 95 fL (79-100) 96 fL (79-100) Mean Corpuscular Hemoglobin 32 pg (25-35) 31 pg (25-35) Mean Corpuscular Hemoglobin Concent 34 g/dL (31-37) 33 g/dL (31-37) Red Cell Distribution Width 13.9 % (11.5-14.5) 13.9 % (11.5-14.5) Platelet Count 259 x10^3/uL (140-400) 288 x10^3/uL (140-400) D-Dimer (Zainab) 2.97 ug/mlFEU (0.00-0.50) Sodium Level 142 mmol/L (136-145) Potassium Level 4.0 mmol/L (3.5-5.1) Chloride Level 105 mmol/L (98-107) Carbon Dioxide Level 29 mmol/L (21-32) Anion Gap 8 (6-14) Blood Urea Nitrogen 16 mg/dL (7-20) Creatinine 1.2 mg/dL (0.6-1.0) Estimated GFR (Cockcroft-Gault) 51.5 Glucose Level 85 mg/dL (70-99) Calcium Level 8.4 mg/dL (8.5-10.1) Magnesium Level 1.8 mg/dL (1.8-2.4) Troponin I Quantitative 0.714 ng/mL (0.000-0.055) Lactic Acid Level 2.4 mmol/L (0.4-2.0) 1.7 mmol/L (0.4-2.0) Medications Active Scripts Medications Dose Route/Sig Max Daily Dose Days Date Category Amlodipine Besylate 10 Mg Tablet 10 Mg PO DAILY 09/23/16 Reported Tramadol Hcl 50 Mg Tablet 50 Mg PO Q4H PRN 04/07/14 Reported Fish Oil 1,000 Mg Capsule ([place]-3 Fatty Acids/Fish Oil) 1 Each Capsule 1 Each PO 04/07/14 Reported Vitamin D3 (Cholecalciferol (Vitamin D3)) 5,000 Unit Capsule 5,000 Unit PO 04/07/14 Reported Acetaminophen 500 Mg Tablet 500 Mg PO 04/07/14 Reported Aspir 81 (Aspirin) 81 Mg Tablet.dr 81 Mg PO 04/07/14 Reported Hydrochlorothiazide Tablet (Hydrochlorothiazide) 25 Mg Tablet 25 Mg PO DAILY 04/07/14 Reported Pravastatin Sodium 40 Mg Tablet 40 Mg PO DAILY 04/07/14 Reported Miralax (Polyethylene Glycol 3350) 17 Gm Powd.pack 1 Pkt PO DAILY 04/07/14 Reported [fiber] 04/07/14 Reported Temazepam 30 Mg Capsule 30 Mg PO HS PRN 04/07/14 Reported Cozaar (Losartan Potassium) 100 Mg Tablet 100 Mg PO DAILY 04/07/14 Reported Impression . FULL NOTE DICTATED ATELECTASIS EFFUSION DIASTOLIC HF POSSIBLE THORACENTESIS ON SUNDAY CONTINUE DIURESES TOLERATED REPEAT PROCALCITONIN CAREN GAUTAM MD February 28, 2019 18:50
--- NOTE | 2019-02-28 19:14 | NUR ---
Follow-up appointment with Dr. Fletcher on April 15 2019 at 0830. Patient was given an appointment card.
[2019-02-28] MEDS: ATORVASTATIN CALCIUM 20 MG TABLET PO SCH (21:41)
[2019-02-28] MEDS: TEMAZEPAM 15 MG CAPSULE PO PRN (22:50)
[2019-03-01] VITALS (8 sets, daily range): BP systolic 103–149; BP diastolic 57–79
[2019-03-01] MEDS: traMADol 50 MG TABLET PO PRN ×3 (00:38→22:41)
[2019-03-01] MEDS: PIPERACILLIN/TAZOBACTAM 2.25 GM in IV NORMAL SALINE 50ML 50 ML IV SCH ×4 (06:18→23:46)
[2019-03-01] MEDS: DICLOFENAC SODIUM 1% TOPICAL GEL 100GM TUBE. TP SCH ×2 (08:09→21:00)
[2019-03-01] MEDS: LACTOBACILLUS RHAMNOSUS GG 1 CAPSULE. PO SCH ×2 (08:09→21:01)
[2019-03-01] MEDS: ASPIRIN ENTERIC COATED 81 MG TABLET.DR. PO SCH (08:09)
[2019-03-01] MEDS: PANTOPRAZOLE 40 MG TABLET.DR. PO SCH (08:10)
[2019-03-01 08:36] LABS: CALCIUM 8.5 mg/dL (8.5-10.1); GFR 63.6
[2019-03-01 08:38] LABS: BASO # 0.1 x10^3/uL (0.0-0.2); BASO % 1 % (0-3); EOS # 0.3 x10^3/uL (0.0-0.7); EOS % 3 % (0-3); HEMATOCRIT 28.3 % (36.0-47.0); HEMOGLOBIN 9.3 g/dL (12.0-15.5); LYMPH # 2.1 x10^3/uL (1.0-4.8); LYMPH % 22 % (24-48); MEAN CORPUSCULAR HEMOGLOBIN 31 pg (25-35); MEAN CORPUSCULAR HGB CONC 33 g/dL (31-37); MEAN CORPUSCULAR VOLUME 95 fL (79-100); MONO # 0.7 x10^3/uL (0.0-1.1); MONO % 8 % (0-9); NEUT # 6.3 x10^3uL (1.8-7.7); NEUT % 66 % (31-73); PLATELET COUNT 295 x10^3/uL (140-400); RED BLOOD COUNT 2.97 x10^6/uL (3.50-5.40); RED CELL DISTRIBUTION WIDTH 13.7 % (11.5-14.5); WHITE BLOOD COUNT 9.5 x10^3/uL (4.0-11.0)
[2019-03-01] MEDS: ALBUTEROL SULFATE 2.5 MG/3 ML NEBU. NEB PRN ×4 (09:14→19:36)
--- NOTE | 2019-03-01 10:33 | CONS ---
DATE OF CONSULTATION: 02/28/2019 ATTENDING PHYSICIAN: Dr. Blackman. REASON FOR CONSULTATION: The patient seen in pulmonary consultation at the request of Dr. Wagoner for abnormal CT chest, hypoxemia. HISTORY OF PRESENT ILLNESS: The patient is an 84-year-old that presented back on 02/23 with a history of hypertension, hyperlipidemia, COPD and peripheral arterial disease, presented with EMS with the shakes and abdominal pain. She was started on the day of admission complaining of some epigastric discomfort. She also has some left lower quadrant pain. She was initially admitted with abdominal pain, fever, non-ST segment elevation MT, hypotension, possible sepsis, COPD. She continued to require some oxygen. She is currently on 4 liters. She was also complaining of feeling short of air. She underwent a CT angiogram for PE protocol. I reviewed that there is no evidence of pulmonary emboli. There are bilateral pulmonary infiltrates compatible with CHF and bilateral effusions. There is also lower lobe atelectasis due to the effusions. The patient quit tobacco approximately 10 years ago. Does not wear oxygen at home. She was using no bronchodilators. She has been treated in the past for acute exacerbation of COPD. PAST MEDICAL HISTORY: Remarkable for as indicated above, multiple comorbidities. She has had hypertension, hyperlipidemia, peripheral vascular disease, COPD, TIA, tobacco dependence, urinary incontinence. PAST SURGICAL HISTORY: She has had previous carotid endarterectomy and femoral popliteal bypass. FAMILY HISTORY: Remarkable for heart disease. SOCIAL HISTORY: She quit tobacco approximately 10 years ago. ALLERGIES: SULFA. REVIEW OF SYSTEMS: CONSTITUTIONAL: Currently no fever or chills. EYES: No change in visual acuity. HENT: No nasal congestion or sore throat. PULMONARY: As indicated above. CARDIOVASCULAR: As indicated above. GASTROINTESTINAL: Currently, no nausea, vomiting, diarrhea. GENITOURINARY: No dysuria or frequency. MUSCULOSKELETAL: No localized muscle aches or joint pain. SKIN: No new skin rashes. NEUROLOGIC: No headaches, diplopia or blurred vision. CURRENT MEDICATION: List was reviewed. She is on antibiotics. She was given some Lasix. PHYSICAL EXAMINATION: VITAL SIGNS: Stable. O2 saturation was greater than 92%, currently on 2 liters. HEENT: Eyes, the sclerae were nonicteric. NECK: Jugular venous distention was not elevated. No lymphadenopathy. CHEST: Full expansion. LUNGS: Diminished breath sounds at the bases. She has some scattered rhonchi, diminished breath sounds in the bases. CARDIOVASCULAR: Regular rate and rhythm with S1, S2, no S3. ABDOMEN: Soft, nontender, nondistended. EXTREMITIES: No clubbing, cyanosis or edema. LABORATORY DATA: Reviewed. White count was normal. Hemoglobin and hematocrit chronically low. Electrolytes were normal. BUN was normal. Creatinine was 1.6. Lactic acid level was elevated, repeat came down. Troponin level was elevated. Procalcitonin at one point was 2.96. Chest x-ray and CT as indicated above. IMPRESSION: 1. Acute hypoxemic respiratory failure. 2. Progressive dyspnea, multifactorial secondary to bilateral effusions with atelectasis and vascular congestion, suspect acute diastolic heart failure. 3. Acute diastolic heart failure. 4. Non-ST segment elevation myocardial infarction. 5. Recent sepsis and hypotension, improved. 6. Peripheral vascular disease, status post previous fem-pop and carotid endarterectomy. 7. Valvular heart disease. PLAN: 1. Recommend gentle diuresis. If no improvement, thoracentesis is warranted. 2. Incentive spirometry. 3. Doubt that this is pneumonia. The patient has been on telepathy. Chest x-ray findings are related to an infectious etiology. Recommend deescalating antibiotics. 4. P.r.n., nebulized treatments. 5. We will follow clinical course and make further recommendations. I do appreciate the privilege in sharing in the patient's care. CAREN GAUTAM MD DR: AYALA/lexi JOB#: [id number] / [id number]
[2019-03-01] MEDS ORDERED: methylPREDNISolone ACETATE 40 MG/ML VIAL. ONE (11:00)
[2019-03-01] MEDS ORDERED: BUPIVACAINE MPF 0.25% 10 ML VIAL. ONE (11:00)
--- NOTE | 2019-03-01 11:09 | PDOC ---
PROGRESS NOTES Subjective Subjective She c/o right knee joint pain and SOB. Objective Objective Vital Signs Date Time Temp Pulse Resp B/P (MAP) Pulse Ox O2 Delivery O2 Flow Rate FiO2 03/01/19 10:11 96 Nasal Cannula 2.0 03/01/19 09:47 119/59 (79) 03/01/19 07:00 97.9 75 97.9 02/28/19 23:01 17 Intake and Output 03/01/19 07:00 Intake Total 780 ml Output Total 3000 ml Balance -2220 ml Intake Oral 730 ml IV Total 50 ml Output Urine Total 3000 ml # Bowel Movements 1 Physical Exam Physical Exam She is supine in bed and is receiving oxygen by nasal canula and she is alert,in no acute distress and she had crepitus on ROM of right knee joint with mild effusion and pain on ROM. Assessment Assessment Problems Medical Problems: (1) Septic shock Status: Acute Plan Plan of Care At her request,I have injected her right knee joint under asptic skin technique after skin prep with alcohol swab with 2 ml of 0.25% bupivacaine solution mixed with 1 ml of methylprednisone 40 mg/1 ml solution and she tolerated the procedure satisfactorily without any side effects. Comment Review of Relevant I have reviewed the following items ne (where applicable) has been applied. Labs Laboratory Tests Test 02/28/19 06:50 02/28/19 10:10 02/28/19 14:55 03/01/19 06:40 White Blood Count 7.8 x10^3/uL (4.0-11.0) 9.3 x10^3/uL (4.0-11.0) Red Blood Count 2.83 x10^6/uL (3.50-5.40) 3.18 x10^6/uL (3.50-5.40) Hemoglobin 9.1 g/dL (12.0-15.5) 10.0 g/dL (12.0-15.5) Hematocrit 27.0 % (36.0-47.0) 30.5 % (36.0-47.0) Mean Corpuscular Volume 95 fL (79-100) 96 fL (79-100) Mean Corpuscular Hemoglobin 32 pg (25-35) 31 pg (25-35) Mean Corpuscular Hemoglobin Concent 34 g/dL (31-37) 33 g/dL (31-37) Red Cell Distribution Width 13.9 % (11.5-14.5) 13.9 % (11.5-14.5) Platelet Count 259 x10^3/uL (140-400) 288 x10^3/uL (140-400) D-Dimer (Zainab) 2.97 ug/mlFEU (0.00-0.50) Sodium Level 142 mmol/L (136-145) 144 mmol/L (136-145) Potassium Level 4.0 mmol/L (3.5-5.1) 4.0 mmol/L (3.5-5.1) Chloride Level 105 mmol/L (98-107) 106 mmol/L (98-107) Carbon Dioxide Level 29 mmol/L (21-32) 29 mmol/L (21-32) Anion Gap 8 (6-14) 9 (6-14) Blood Urea Nitrogen 16 mg/dL (7-20) 15 mg/dL (7-20) Creatinine 1.2 mg/dL (0.6-1.0) 1.0 mg/dL (0.6-1.0) Estimated GFR (Cockcroft-Gault) 51.5 63.6 Glucose Level 85 mg/dL (70-99) 93 mg/dL (70-99) Calcium Level 8.4 mg/dL (8.5-10.1) 8.5 mg/dL (8.5-10.1) Magnesium Level 1.8 mg/dL (1.8-2.4) Troponin I Quantitative 0.714 ng/mL (0.000-0.055) Lactic Acid Level 2.4 mmol/L (0.4-2.0) 1.7 mmol/L (0.4-2.0) Procalcitonin 1.18 ng/mL (0.00-0.10) Test 03/01/19 08:30 White Blood Count 9.5 x10^3/uL (4.0-11.0) Red Blood Count 2.97 x10^6/uL (3.50-5.40) Hemoglobin 9.3 g/dL (12.0-15.5) Hematocrit 28.3 % (36.0-47.0) Mean Corpuscular Volume 95 fL (79-100) Mean Corpuscular Hemoglobin 31 pg (25-35) Mean Corpuscular Hemoglobin Concent 33 g/dL (31-37) Red Cell Distribution Width 13.7 % (11.5-14.5) Platelet Count 295 x10^3/uL (140-400) Neutrophils (%) (Auto) 66 % (31-73) Lymphocytes (%) (Auto) 22 % (24-48) Monocytes (%) (Auto) 8 % (0-9) Eosinophils (%) (Auto) 3 % (0-3) Basophils (%) (Auto) 1 % (0-3) Neutrophils # (Auto) 6.3 x10^3uL (1.8-7.7) Lymphocytes # (Auto) 2.1 x10^3/uL (1.0-4.8) Monocytes # (Auto) 0.7 x10^3/uL (0.0-1.1) Eosinophils # (Auto) 0.3 x10^3/uL (0.0-0.7) Basophils # (Auto) 0.1 x10^3/uL (0.0-0.2) Laboratory Tests Test 02/28/19 14:55 03/01/19 06:40 03/01/19 08:30 Lactic Acid Level 1.7 mmol/L (0.4-2.0) Sodium Level 144 mmol/L (136-145) Potassium Level 4.0 mmol/L (3.5-5.1) Chloride Level 106 mmol/L (98-107) Carbon Dioxide Level 29 mmol/L (21-32) Anion Gap 9 (6-14) Blood Urea Nitrogen 15 mg/dL (7-20) Creatinine 1.0 mg/dL (0.6-1.0) Estimated GFR (Cockcroft-Gault) 63.6 Glucose Level 93 mg/dL (70-99) Calcium Level 8.5 mg/dL (8.5-10.1) Procalcitonin 1.18 ng/mL (0.00-0.10) White Blood Count 9.5 x10^3/uL (4.0-11.0) Red Blood Count 2.97 x10^6/uL (3.50-5.40) Hemoglobin 9.3 g/dL (12.0-15.5) Hematocrit 28.3 % (36.0-47.0) Mean Corpuscular Volume 95 fL (79-100) Mean Corpuscular Hemoglobin 31 pg (25-35) Mean Corpuscular Hemoglobin Concent 33 g/dL (31-37) Red Cell Distribution Width 13.7 % (11.5-14.5) Platelet Count 295 x10^3/uL (140-400) Neutrophils (%) (Auto) 66 % (31-73) Lymphocytes (%) (Auto) 22 % (24-48) Monocytes (%) (Auto) 8 % (0-9) Eosinophils (%) (Auto) 3 % (0-3) Basophils (%) (Auto) 1 % (0-3) Neutrophils # (Auto) 6.3 x10^3uL (1.8-7.7) Lymphocytes # (Auto) 2.1 x10^3/uL (1.0-4.8) Monocytes # (Auto) 0.7 x10^3/uL (0.0-1.1) Eosinophils # (Auto) 0.3 x10^3/uL (0.0-0.7) Basophils # (Auto) 0.1 x10^3/uL (0.0-0.2) Microbiology 02/22/19 Blood Culture - Final, Complete NO GROWTH AFTER 5 DAYS 02/22/19 Urine Culture - Final, Complete 02/22/19 Urine Culture Result 1 (JIN) - Final, Complete 02/22/19 Antimicrobic Susceptibility - Final, Complete Medications Current Medications Sodium Chloride 1,000 ml @ 1,000 mls/hr 1X ONCE IV Last administered on 02/22/19at 21:23; Start 02/22/19 at 20:45; Stop 02/22/19 at 21:44; Status DC Acetaminophen (Tylenol) 650 mg 1X ONCE PO Last administered on 02/22/19at 21:22; Start 02/22/19 at 20:45; Stop 02/22/19 at 20:52; Status DC Piperacillin Sod/ Tazobactam Sod (Zosyn Per Pharmacy) 1 each PRN DAILY PRN MC SEE COMMENTS; Start 02/22/19 at 20:45; Stop 02/23/19 at 14:53; Status DC Piperacillin Sod/ Tazobactam Sod 3.375 gm/Sodium Chloride 50 ml @ 100 mls/hr ONCE ONCE IV Last administered on 02/22/19at 21:23; Start 02/22/19 at 21:00; Stop 02/22/19 at 21:29; Status DC Sodium Chloride 1,000 ml @ 1,000 mls/hr 1X ONCE IV Last administered on 02/22/19at 23:44; Start 02/22/19 at 23:30; Stop 02/23/19 at 00:29; Status DC Sodium Chloride 1,000 ml @ 75 mls/hr [id number] IV Last administered on 02/23/19at 07:38; Start 02/22/19 at 23:30; Stop 02/23/19 at 08:17; Status DC Iohexol (Omnipaque 300 Mg/ml) 60 ml 1X ONCE IV Last administered on 02/23/19at 00:02; Start 02/23/19 at 00:15; Stop 02/23/19 at 00:16; Status DC Info (CONTRAST GIVEN -- Rx MONITORING) 1 each PRN DAILY PRN MC SEE COMMENTS; Start 02/23/19 at 00:15; Stop 02/25/19 at 00:14; Status DC Piperacillin Sod/ Tazobactam Sod 2.25 gm/Sodium Chloride 50 ml @ 100 mls/hr Q6HRS IV Last administered on 02/23/19at 12:26; Start 02/23/19 at 06:00; Stop 02/23/19 at 14:34; Status DC Sodium Chloride 1,000 ml @ 1,000 mls/hr 1X ONCE IV ; Start 02/23/19 at 01:00; Stop 02/23/19 at 01:45; Status DC Sodium Chloride 500 ml @ 500 mls/hr 1X ONCE IV Last administered on 02/23/19at 02:07; Start 02/23/19 at 02:00; Stop 02/23/19 at 02:59; Status DC Norepinephrine Bitartrate 250 ml @ 0 mls/hr 1X ONCE IV ; Start 02/23/19 at 02:00; Stop 02/23/19 at 02:01; Status DC Sodium Chloride 500 ml @ 500 mls/hr 1X ONCE IV Last administered on 02/23/19at 06:10; Start 02/23/19 at 02:00; Stop 02/23/19 at 02:59; Status DC Norepinephrine Bitartrate 250 ml @ 1.875 mls/ hr CONT PRN IV SEE I/O RECORD Last administered on 02/26/19 09:00; Start 02/23/19 at 03:15; Stop 02/27/19 at 14:17; Status DC Ondansetron HCl (Zofran) 4 mg PRN Q6HRS PRN IV NAUSEA/VOMITING Last admini stered on 02/24/19at 23:21; Start 02/23/19 at 03:15 Iohexol (Omnipaque 300 Mg/ml) 100 ml STK-MED ONCE .ROUTE ; Start 02/23/19 at 04: 24; Stop 02/23/19 at 04:25; Status DC Sodium Chloride 500 ml @ 500 mls/hr 1X ONCE IV Last administered on 02/23/19at 08:28; Start 02/23/19 at 07:45; Stop 02/23/19 at 08:44; Status DC Acetaminophen (Tylenol) 650 mg PRN Q6HRS PRN PO MILD PAIN / TEMP Last ad ministered on 02/28/19at 04:56; Start 02/23/19 at 08:15 Ringer's Solution 1,000 ml @ 100 mls/hr Q10H IV Last administered on 02/27/19at 23:15; Start 02/23/19 at 08:30; Stop 02/28/19 at 11:55; Status DC Ringer's Solution 500 ml @ 500 mls/hr 1X ONCE IV Last administered on 02/23/19 09:23; Start 02/23/19 at 09:15; Stop 02/23/19 at 10:14; Status DC Dopamine HCl/ Dextrose 250 ml @ 5.749 mls/ hr CONT PRN IV SEE I/O RECORD Last administered on 02/25/19 05:11; Start 02/23/19 at 12:15 Tramadol HCl (Ultram) 50 mg PRN Q6HRS PRN PO MODERATE-SEVERE PAIN Last administered on 03/01/19at 10:11; Start 02/23/19 at 12:30 Heparin Sodium (Porcine) (Heparin Sodium) 4,000 unit 1X ONCE IV Last administered on 02/23/19at 13:30; Start 02/23/19 at 13:00; Stop 02/23/19 at 13:01; Status DC Heparin Sodium/ Dextrose 500 ml @ 0 mls/hr CONT PRN IV SEE I/O RECORD Last administered on 02/25/19at 05:12; Start 02/23/19 at 13:00; Stop 02/26/19 at 13:01; Status DC Heparin Sodium (Porcine) (Heparin Sodium) 1,900 unit PRN Q6HRS PRN IV FOR UFH LEVEL LESS THAN 0.2 Last administered on 02/25/19at 09:35; Start 02/23/19 at 13:00; Stop 02/26/19 at 13:01; Status DC Polyethylene Glycol (miraLAX PACKET) 17 gm PRN BID PRN PO CONSTIPATION Last administered on 02/23/19 14:38; Start 02/23/19 at 13:15; Stop 02/23/19 at 14:59; Status DC Info (Anti-Coagulation Monitoring By Pharmacy) 1 each PRN DAILY PRN MC SEE COMMENTS Last administered on 02/26/19 08:00; Start 02/23/19 at 13:30; Stop 02/26/19 at 13:50; Status DC Temazepam (Restoril) 15 mg PRN QHS PRN PO INSOMNIA Last administered on 02/28/19at 22:50; Start 02/23/19 at 14:45 Piperacillin Sod/ Tazobactam Sod 2.25 gm/Sodium Chloride 50 ml @ 100 mls/hr Q6HRS IV ; Start 02/23/19 at 18:00; Stop 02/23/19 at 18:00; Status DC Polyethylene Glycol (miraLAX PACKET) 17 gm BID PO Last administered on 02/27/19at 10:53; Start 02/23/19 at 21:00 Multi-Ingredient Ointment (Analgesic Cotuit) 1 mara PRN QID PRN TP MUSCLE PAIN Last administered on 02/27/19 09:18; Start 02/23/19 at 18:00 Pantoprazole Sodium (Protonix) 40 mg DAILYAC PO Last administered on 03/01/19at 08:10; Start 02/24/19 at 17:30 Aspirin (Ecotrin) 325 mg 1X ONCE PO Last administered on 02/25/19at 09:31; Start 02/25/19 at 09:15; Stop 02/25/19 at 09:16; Status DC Aspirin (Ecotrin) 81 mg DAILYWBKFT PO Last administered on 03/01/19at 08:09; Start 02/26/19 at 08:00 Potassium Chloride (Klor-Con) 40 meq 1X ONCE PO Last administered on 02/25/19at 09:32; Start 02/25/19 at 09:15; Stop 02/25/19 at 09:16; Status DC Magnesium Sulfate/ Dextrose 100 ml @ 25 mls/hr 1X ONCE IV Last administered on 02/25/19at 11:49; Start 02/25/19 at 11:30; Stop 02/25/19 at 15:29; Status DC Piperacillin Sod/ Tazobactam Sod (Zosyn Per Pharmacy) 1 each PRN DAILY PRN MC SEE COMMENTS; Start 02/25/19 at 16:45 Piperacillin Sod/ Tazobactam Sod 2.25 gm/Sodium Chloride 50 ml @ 100 mls/hr Q6HRS IV Last administered on 03/01/19at 06:18; Start 02/25/19 at 18:00 Bisacodyl (Dulcolax Tab) 10 mg 1X ONCE PO Last administered on 02/26/19at 10:00; Start 02/26/19 at 10:00; Stop 02/26/19 at 10:01; Status DC Methylprednisolone Acetate (DEPO-Medrol 40MG VIAL) 40 mg 1X ONCE IM ; Start 02/26/19 at 12:15; Stop 02/26/19 at 12:20; Status DC Bupivacaine HCl (Sensorcaine-Mpf 0.25%) 10 ml 1X ONCE IJ ; Start 02/26/19 at 12:15; Stop 02/26/19 at 12:20; Status DC Methylprednisolone Acetate (DEPO-Medrol 40MG VIAL) 40 mg 1X ONCE IM ; Start 02/27/19 at 08:00; Stop 02/27/19 at 08:01; Status DC Bupivacaine HCl (Sensorcaine-Mpf 0.25%) 10 ml 1X ONCE IJ ; Start 02/27/19 at 08:00; Stop 02/27/19 at 08:01; Status DC Lactobacillus Rhamnosus (Culturelle) 1 cap BID PO Last administered on 03/01/19at 08:09; Start 02/26/19 at 21:00 Diclofenac Sodium (Voltaren) 1 mara BID TP Last administered on 03/01/19 08:09; Start 02/26/19 at 21:00 Artificial Tears (Artificial Tears) 1 drop PRN Q2HR PRN OU DRY EYE Last administered on 02/28/19 05:12; Start 02/26/19 at 19:15 Ketotifen Fumarate (Zaditor) 1 drop 1X ONCE OU Last administered on 02/27/19 12:21; Start 02/27/19 at 09:30; Stop 02/27/19 at 09:31; Status DC Atorvastatin Calcium (Lipitor) 20 mg QHS PO Last administered on 02/28/19 21:41; Start 02/27/19 at 21:00 Sodium Chloride 500 ml @ 500 mls/hr 1X ONCE IV Last administered on 02/28/19 09:30; Start 02/28/19 at 09:30; Stop 02/28/19 at 10:29; Status DC Alteplase, Recombinant (Cathflo For Central Catheter Clearance) 1 mg 1X ONCE INT CAT ; Start 02/28/19 at 10:15; Stop 02/28/19 at 10:16; Status DC Sodium Chloride 1,000 ml @ 100 mls/hr Q10H IV Last administered on 02/28/19 12:05; Start 02/28/19 at 12:00; Stop 02/28/19 at 16:41; Status DC Iohexol (Omnipaque 350 Mg/ml) 90 ml 1X ONCE IV Last administered on 02/28/19 14:25; Start 02/28/19 at 12:30; Stop 02/28/19 at 12:31; Status DC Albuterol Sulfate (Ventolin Neb Soln) 2.5 mg PRN Q4HRS PRN NEB SHORTNESS OF BREATH Last administered on 03/01/19 09:14; Start 02/28/19 at 13:30 Furosemide (Lasix) 20 mg 1X ONCE IVP Last administered on 02/28/19 15:54; Start 02/28/19 at 15:30; Stop 02/28/19 at 15:32; Status DC Active Scripts Active Reported Amlodipine Besylate 10 Mg Tablet 10 Mg PO DAILY Tramadol Hcl 50 Mg Tablet 50 Mg PO Q4H PRN Fish Oil 1,000 Mg Capsule ([place]-3 Fatty Acids/Fish Oil) 1 Each Capsule 1 Each PO Vitamin D3 (Cholecalciferol (Vitamin D3)) 5,000 Unit Capsule 5,000 Unit PO Acetaminophen 500 Mg Tablet 500 Mg PO Aspir 81 (Aspirin) 81 Mg Tablet.dr 81 Mg PO Hydrochlorothiazide Tablet (Hydrochlorothiazide) 25 Mg Tablet 25 Mg PO DAILY Pravastatin Sodium 40 Mg Tablet 40 Mg PO DAILY Miralax (Polyethylene Glycol 3350) 17 Gm Powd.pack 1 Pkt PO DAILY [fiber] Temazepam 30 Mg Capsule 30 Mg PO HS PRN Cozaar (Losartan Potassium) 100 Mg Tablet 100 Mg PO DAILY Vitals/I & O Vital Sign - Last 24 Hours 02/28/19 02/28/19 02/28/19 02/28/19 15:01 15:26 15:54 16:06 Temp 98.3 98.3 Pulse 76 96 104 Resp 19 B/P (MAP) 114/58 (76) 133/74 (93) 146/76 (99) Pulse Ox 94 96 97 97 O2 Delivery Nasal Cannula Nasal Cannula O2 Flow Rate 2.0 2.0 02/28/19 02/28/19 02/28/19 02/28/19 16:33 19:30 20:00 20:49 Temp 97.8 97.8 Pulse 88 100 Resp 22 B/P (MAP) 118/67 (84) 84/58 (67) Pulse Ox 98 97 97 O2 Delivery Nasal Cannula Nasal Cannula Nasal Cannula Nasal Cannula O2 Flow Rate 2.0 3.0 2.0 3.0 02/28/19 03/01/19 03/01/19 03/01/19 23:01 00:38 01:40 03:15 Temp 98.0 97.8 98.0 97.8 Pulse 106 80 Resp 17 B/P (MAP) 100/64 (76) 119/59 (79) Pulse Ox 96 98 O2 Delivery Nasal Cannula Nasal Cannula Nasal Cannula Room Air O2 Flow Rate 2.0 2.0 2.0 03/01/19 03/01/19 03/01/19 03/01/19 07:00 07:35 08:51 09:15 Temp 97.9 97.9 Pulse 75 B/P (MAP) 103/57 (72) Pulse Ox 98 98 O2 Delivery Room Air Nasal Cannula Nasal Cannula Nasal Cannula O2 Flow Rate 2.0 2.0 3.0 5/11/19 5/11/19 09:47 10:11 B/P (MAP) 119/59 (79) Pulse Ox 96 O2 Delivery Nasal Cannula O2 Flow Rate 2.0 Intake and Output 02/28/19 02/28/19 03/01/19 15:00 23:00 07:00 Intake Total 490 ml 50 ml 240 ml Output Total 3000 ml Balance 490 ml -2950 ml 240 ml Nutrition Consultation Dietary Evaluation: Recommendations by RD: Increase Calorie Intake, Protein supplementation Comments: Continue w/GI soft/cardiac diet as ordered, honor food preferences, and provide snacks as requested continue Ensure (strawberry) w/lunch trays Expected Outcomes/Goals: PO intake to meet >75% est needs - met at times, goal ongoing Malnutrition Findings: Food and Nutrition Intake (Mod: <75% est energy req 7days Weight Status: Appropriate ERIN PRIETO MD March 01, 2019 11:09
--- NOTE | 2019-03-01 11:35 | PDOC ---
[employer] PROGRESS NOTE Chief Complaint Chief Complaint Recent sepsis with resolving hypotension Sudden dyspnea: mild CHF NSTEMI: PAD Hx of HTN Valvular insufficiency: Mild AI, mild to mod MR, Mild TR Mild Colonic ileus History of Present Illness History of Present Illness Patient seen and examined She appears more alert than yesterday Patient still is SOA Mild pitting edema seen BP has improved greatly at 119/59 Discussed with nurse Vitals Vitals Vital Signs Date Time Temp Pulse Resp B/P (MAP) Pulse Ox O2 Delivery O2 Flow Rate FiO2 03/01/19 10:11 96 Nasal Cannula 2.0 03/01/19 09:47 119/59 (79) 03/01/19 07:00 97.9 75 97.9 02/28/19 23:01 17 Physical Exam General: Alert, Oriented X3, mild distress, Other (improved appearance, remains short of breath and lethargic) Heart: Other (soft S1-S2 intermittent tachycardia) Lungs: Clear, Other (mostly clear but some subtle crackles) Abdomen: Normal bowel sounds Extremities: No clubbing, No cyanosis, Other (Decreased peripheral pulses in RUE, LUE and LLE, good pulses RLE; +2/4 pitting edema noted) Skin: No rashes, No breakdown, No significant lesion Labs LABS Laboratory Tests Test 02/28/19 14:55 03/01/19 06:40 03/01/19 08:30 Lactic Acid Level 1.7 mmol/L (0.4-2.0) Sodium Level 144 mmol/L (136-145) Potassium Level 4.0 mmol/L (3.5-5.1) Chloride Level 106 mmol/L (98-107) Carbon Dioxide Level 29 mmol/L (21-32) Anion Gap 9 (6-14) Blood Urea Nitrogen 15 mg/dL (7-20) Creatinine 1.0 mg/dL (0.6-1.0) Estimated GFR (Cockcroft-Gault) 63.6 Glucose Level 93 mg/dL (70-99) Calcium Level 8.5 mg/dL (8.5-10.1) Procalcitonin 1.18 ng/mL (0.00-0.10) White Blood Count 9.5 x10^3/uL (4.0-11.0) Red Blood Count 2.97 x10^6/uL (3.50-5.40) Hemoglobin 9.3 g/dL (12.0-15.5) Hematocrit 28.3 % (36.0-47.0) Mean Corpuscular Volume 95 fL (79-100) Mean Corpuscular Hemoglobin 31 pg (25-35) Mean Corpuscular Hemoglobin Concent 33 g/dL (31-37) Red Cell Distribution Width 13.7 % (11.5-14.5) Platelet Count 295 x10^3/uL (140-400) Neutrophils (%) (Auto) 66 % (31-73) Lymphocytes (%) (Auto) 22 % (24-48) Monocytes (%) (Auto) 8 % (0-9) Eosinophils (%) (Auto) 3 % (0-3) Basophils (%) (Auto) 1 % (0-3) Neutrophils # (Auto) 6.3 x10^3uL (1.8-7.7) Lymphocytes # (Auto) 2.1 x10^3/uL (1.0-4.8) Monocytes # (Auto) 0.7 x10^3/uL (0.0-1.1) Eosinophils # (Auto) 0.3 x10^3/uL (0.0-0.7) Basophils # (Auto) 0.1 x10^3/uL (0.0-0.2) Review of Systems Review of Systems Patient reports SOA Patient denies abdominal pain Assessment and Plan Assessmemt and Plan Problems Medical Problems: (1) Septic shock Status: Acute Assessment: Recent sepsis with resolving hypotension NSTEMI: Mild Colonic ileus PAD Hx of HTN Valvular insufficiency: Mild AI, mild to mod MR, Mild TR Sudden dyspnea: mild CHF Plan: Cardiac monitoring Continue antibiotics( Zosyn) Await Training Consultant recommendations: Hypotension with CHF Frequent labs PT/OT Full code DVT prophylaxis Appreciate subspecialist input Comment Review of Relevant I have reviewed the following items ne (where applicable) has been applied. Labs Laboratory Tests Test 02/28/19 06:50 02/28/19 10:10 02/28/19 14:55 03/01/19 06:40 White Blood Count 7.8 x10^3/uL (4.0-11.0) 9.3 x10^3/uL (4.0-11.0) Red Blood Count 2.83 x10^6/uL (3.50-5.40) 3.18 x10^6/uL (3.50-5.40) Hemoglobin 9.1 g/dL (12.0-15.5) 10.0 g/dL (12.0-15.5) Hematocrit 27.0 % (36.0-47.0) 30.5 % (36.0-47.0) Mean Corpuscular Volume 95 fL (79-100) 96 fL (79-100) Mean Corpuscular Hemoglobin 32 pg (25-35) 31 pg (25-35) Mean Corpuscular Hemoglobin Concent 34 g/dL (31-37) 33 g/dL (31-37) Red Cell Distribution Width 13.9 % (11.5-14.5) 13.9 % (11.5-14.5) Platelet Count 259 x10^3/uL (140-400) 288 x10^3/uL (140-400) D-Dimer (Zainab) 2.97 ug/mlFEU (0.00-0.50) Sodium Level 142 mmol/L (136-145) 144 mmol/L (136-145) Potassium Level 4.0 mmol/L (3.5-5.1) 4.0 mmol/L (3.5-5.1) Chloride Level 105 mmol/L (98-107) 106 mmol/L (98-107) Carbon Dioxide Level 29 mmol/L (21-32) 29 mmol/L (21-32) Anion Gap 8 (6-14) 9 (6-14) Blood Urea Nitrogen 16 mg/dL (7-20) 15 mg/dL (7-20) Creatinine 1.2 mg/dL (0.6-1.0) 1.0 mg/dL (0.6-1.0) Estimated GFR (Cockcroft-Gault) 51.5 63.6 Glucose Level 85 mg/dL (70-99) 93 mg/dL (70-99) Calcium Level 8.4 mg/dL (8.5-10.1) 8.5 mg/dL (8.5-10.1) Magnesium Level 1.8 mg/dL (1.8-2.4) Troponin I Quantitative 0.714 ng/mL (0.000-0.055) Lactic Acid Level 2.4 mmol/L (0.4-2.0) 1.7 mmol/L (0.4-2.0) Procalcitonin 1.18 ng/mL (0.00-0.10) Test 03/01/19 08:30 White Blood Count 9.5 x10^3/uL (4.0-11.0) Red Blood Count 2.97 x10^6/uL (3.50-5.40) Hemoglobin 9.3 g/dL (12.0-15.5) Hematocrit 28.3 % (36.0-47.0) Mean Corpuscular Volume 95 fL (79-100) Mean Corpuscular Hemoglobin 31 pg (25-35) Mean Corpuscular Hemoglobin Concent 33 g/dL (31-37) Red Cell Distribution Width 13.7 % (11.5-14.5) Platelet Count 295 x10^3/uL (140-400) Neutrophils (%) (Auto) 66 % (31-73) Lymphocytes (%) (Auto) 22 % (24-48) Monocytes (%) (Auto) 8 % (0-9) Eosinophils (%) (Auto) 3 % (0-3) Basophils (%) (Auto) 1 % (0-3) Neutrophils # (Auto) 6.3 x10^3uL (1.8-7.7) Lymphocytes # (Auto) 2.1 x10^3/uL (1.0-4.8) Monocytes # (Auto) 0.7 x10^3/uL (0.0-1.1) Eosinophils # (Auto) 0.3 x10^3/uL (0.0-0.7) Basophils # (Auto) 0.1 x10^3/uL (0.0-0.2) Laboratory Tests Test 02/28/19 14:55 03/01/19 06:40 03/01/19 08:30 Lactic Acid Level 1.7 mmol/L (0.4-2.0) Sodium Level 144 mmol/L (136-145) Potassium Level 4.0 mmol/L (3.5-5.1) Chloride Level 106 mmol/L (98-107) Carbon Dioxide Level 29 mmol/L (21-32) Anion Gap 9 (6-14) Blood Urea Nitrogen 15 mg/dL (7-20) Creatinine 1.0 mg/dL (0.6-1.0) Estimated GFR (Cockcroft-Gault) 63.6 Glucose Level 93 mg/dL (70-99) Calcium Level 8.5 mg/dL (8.5-10.1) Procalcitonin 1.18 ng/mL (0.00-0.10) White Blood Count 9.5 x10^3/uL (4.0-11.0) Red Blood Count 2.97 x10^6/uL (3.50-5.40) Hemoglobin 9.3 g/dL (12.0-15.5) Hematocrit 28.3 % (36.0-47.0) Mean Corpuscular Volume 95 fL (79-100) Mean Corpuscular Hemoglobin 31 pg (25-35) Mean Corpuscular Hemoglobin Concent 33 g/dL (31-37) Red Cell Distribution Width 13.7 % (11.5-14.5) Platelet Count 295 x10^3/uL (140-400) Neutrophils (%) (Auto) 66 % (31-73) Lymphocytes (%) (Auto) 22 % (24-48) Monocytes (%) (Auto) 8 % (0-9) Eosinophils (%) (Auto) 3 % (0-3) Basophils (%) (Auto) 1 % (0-3) Neutrophils # (Auto) 6.3 x10^3uL (1.8-7.7) Lymphocytes # (Auto) 2.1 x10^3/uL (1.0-4.8) Monocytes # (Auto) 0.7 x10^3/uL (0.0-1.1) Eosinophils # (Auto) 0.3 x10^3/uL (0.0-0.7) Basophils # (Auto) 0.1 x10^3/uL (0.0-0.2) Microbiology 02/22/19 Blood Culture - Final, Complete NO GROWTH AFTER 5 DAYS 02/22/19 Urine Culture - Final, Complete 02/22/19 Urine Culture Result 1 (JIN) - Final, Complete 02/22/19 Antimicrobic Susceptibility - Final, Complete Medications Current Medications Sodium Chloride 1,000 ml @ 1,000 mls/hr 1X ONCE IV Last administered on 02/22/19at 21:23; Start 02/22/19 at 20:45; Stop 02/22/19 at 21:44; Status DC Acetaminophen (Tylenol) 650 mg 1X ONCE PO Last administered on 02/22/19at 21:22; Start 02/22/19 at 20:45; Stop 02/22/19 at 20:52; Status DC Piperacillin Sod/ Tazobactam Sod (Zosyn Per Pharmacy) 1 each PRN DAILY PRN MC SEE COMMENTS; Start 02/22/19 at 20:45; Stop 02/23/19 at 14:53; Status DC Piperacillin Sod/ Tazobactam Sod 3.375 gm/Sodium Chloride 50 ml @ 100 mls/hr ONCE ONCE IV Last administered on 02/22/19at 21:23; Start 02/22/19 at 21:00; Stop 02/22/19 at 21:29; Status DC Sodium Chloride 1,000 ml @ 1,000 mls/hr 1X ONCE IV Last administered on 02/22/19at 23:44; Start 02/22/19 at 23:30; Stop 02/23/19 at 00:29; Status DC Sodium Chloride 1,000 ml @ 75 mls/hr [id number] IV Last administered on 02/23/19at 07:38; Start 02/22/19 at 23:30; Stop 02/23/19 at 08:17; Status DC Iohexol (Omnipaque 300 Mg/ml) 60 ml 1X ONCE IV Last administered on 02/23/19at 00:02; Start 02/23/19 at 00:15; Stop 02/23/19 at 00:16; Status DC Info (CONTRAST GIVEN -- Rx MONITORING) 1 each PRN DAILY PRN MC SEE COMMENTS; Start 02/23/19 at 00:15; Stop 02/25/19 at 00:14; Status DC Piperacillin Sod/ Tazobactam Sod 2.25 gm/Sodium Chloride 50 ml @ 100 mls/hr Q6HRS IV Last administered on 02/23/19at 12:26; Start 02/23/19 at 06:00; Stop 02/23/19 at 14:34; Status DC Sodium Chloride 1,000 ml @ 1,000 mls/hr 1X ONCE IV ; Start 02/23/19 at 01:00; Stop 02/23/19 at 01:45; Status DC Sodium Chloride 500 ml @ 500 mls/hr 1X ONCE IV Last administered on 02/23/19at 02:07; Start 02/23/19 at 02:00; Stop 02/23/19 at 02:59; Status DC Norepinephrine Bitartrate 250 ml @ 0 mls/hr 1X ONCE IV ; Start 02/23/19 at 02:00; Stop 02/23/19 at 02:01; Status DC Sodium Chloride 500 ml @ 500 mls/hr 1X ONCE IV Last administered on 02/23/19at 06:10; Start 02/23/19 at 02:00; Stop 02/23/19 at 02:59; Status DC Norepinephrine Bitartrate 250 ml @ 1.875 mls/ hr CONT PRN IV SEE I/O RECORD Last administered on 02/26/19at 09:00; Start 02/23/19 at 03:15; Stop 02/27/19 at 14:17; Status DC Ondansetron HCl (Zofran) 4 mg PRN Q6HRS PRN IV NAUSEA/VOMITING Last administered on 02/24/19at 23:21; Start 02/23/19 at 03:15 Iohexol (Omnipaque 300 Mg/ml) 100 ml STK-MED ONCE .ROUTE ; Start 02/23/19 at 04:24; Stop 02/23/19 at 04:25; Status DC Sodium Chloride 500 ml @ 500 mls/hr 1X ONCE IV Last administered on 02/23/19at 08:28; Start 02/23/19 at 07:45; Stop 02/23/19 at 08:44; Status DC Acetaminophen (Tylenol) 650 mg PRN Q6HRS PRN PO MILD PAIN / TEMP Last administered on 02/28/19at 04:56; Start 02/23/19 at 08:15 Ringer's Solution 1,000 ml @ 100 mls/hr Q10H IV Last administered on 02/27/19at 23:15; Start 02/23/19 at 08:30; Stop 02/28/19 at 11:55; Status DC Ringer's Solution 500 ml @ 500 mls/hr 1X ONCE IV Last administered on 02/23/19at 09:23; Start 02/23/19 at 09:15; Stop 02/23/19 at 10:14; Status DC Dopamine HCl/ Dextrose 250 ml @ 5.749 mls/ hr CONT PRN IV SEE I/O RECORD Last administered on 02/25/19 05:11; Start 02/23/19 at 12:15 Tramadol HCl (Ultram) 50 mg PRN Q6HRS PRN PO MODERATE-SEVERE PAIN Last administered on 03/01/19 10:11; Start 02/23/19 at 12:30 Heparin Sodium (Porcine) (Heparin Sodium) 4,000 unit 1X ONCE IV Last administered on 02/23/19 13:30; Start 02/23/19 at 13:00; Stop 02/23/19 at 13:01; Status DC Heparin Sodium/ Dextrose 500 ml @ 0 mls/hr CONT PRN IV SEE I/O RECORD Last administered on 02/25/19 05:12; Start 02/23/19 at 13:00; Stop 02/26/19 at 13:01; Status DC Heparin Sodium (Porcine) (Heparin Sodium) 1,900 unit PRN Q6HRS PRN IV FOR UFH LEVEL LESS THAN 0.2 Last administered on 02/25/19 09:35; Start 02/23/19 at 13:00; Stop 02/26/19 at 13:01; Status DC Polyethylene Glycol (miraLAX PACKET) 17 gm PRN BID PRN PO CONSTIPATION Last administered on 02/23/19 14:38; Start 02/23/19 at 13:15; Stop 02/23/19 at 14:59; Status DC Info (Anti-Coagulation Monitoring By Pharmacy) 1 each PRN DAILY PRN MC SEE COMMENTS Last administered on 02/26/19at 08:00; Start 02/23/19 at 13:30; Stop 02/26/19 at 13:50; Status DC Temazepam (Restoril) 15 mg PRN QHS PRN PO INSOMNIA Last administered on 02/28/19 22:50; Start 02/23/19 at 14:45 Piperacillin Sod/ Tazobactam Sod 2.25 gm/Sodium Chloride 50 ml @ 100 mls/hr Q6HRS IV ; Start 02/23/19 at 18:00; Stop 02/23/19 at 18:00; Status DC Polyethylene Glycol (miraLAX PACKET) 17 gm BID PO Last administered on 02/27/19at 10:53; Start 02/23/19 at 21:00 Multi-Ingredient Ointment (Analgesic [place]) 1 mara PRN QID PRN TP MUSCLE PAIN Last administered on 02/27/19at 09:18; Start 02/23/19 at 18:00 Pantoprazole Sodium (Protonix) 40 mg DAILYAC PO Last administered on 03/01/19at 08:10; Start 02/24/19 at 17:30 Aspirin (Ecotrin) 325 mg 1X ONCE PO Last administered on 02/25/19at 09:31; Start 02/25/19 at 09:15; Stop 02/25/19 at 09:16; Status DC Aspirin (Ecotrin) 81 mg DAILYWBKFT PO Last administered on 03/01/19at 08:09; Start 02/26/19 at 08:00 Potassium Chloride (Klor-Con) 40 meq 1X ONCE PO Last administered on 02/25/19at 09:32; Start 02/25/19 at 09:15; Stop 02/25/19 at 09:16; Status DC Magnesium Sulfate/ Dextrose 100 ml @ 25 mls/hr 1X ONCE IV Last administered on 02/25/19at 11:49; Start 02/25/19 at 11:30; Stop 02/25/19 at 15:29; Status DC Piperacillin Sod/ Tazobactam Sod (Zosyn Per Pharmacy) 1 each PRN DAILY PRN MC SEE COMMENTS; Start 02/25/19 at 16:45 Piperacillin Sod/ Tazobactam Sod 2.25 gm/Sodium Chloride 50 ml @ 100 mls/hr Q6HRS IV Last administered on 03/01/19at 06:18; Start 02/25/19 at 18:00 Bisacodyl (Dulcolax Tab) 10 mg 1X ONCE PO Last administered on 02/26/19at 10:00; Start 02/26/19 at 10:00; Stop 02/26/19 at 10:01; Status DC Methylprednisolone Acetate (DEPO-Medrol 40MG VIAL) 40 mg 1X ONCE IM ; Start 02/26/19 at 12:15; Stop 02/26/19 at 12:20; Status DC Bupivacaine HCl (Sensorcaine-Mpf 0.25%) 10 ml 1X ONCE IJ ; Start 02/26/19 at 12:15; Stop 02/26/19 at 12:20; Status DC Methylprednisolone Acetate (DEPO-Medrol 40MG VIAL) 40 mg 1X ONCE IM ; Start 02/27/19 at 08:00; Stop 02/27/19 at 08:01; Status DC Bupivacaine HCl (Sensorcaine-Mpf 0.25%) 10 ml 1X ONCE IJ ; Start 02/27/19 at 08:00; Stop 02/27/19 at 08:01; Status DC Lactobacillus Rhamnosus (Culturelle) 1 cap BID PO Last administered on 03/01/19at 08:09; Start 02/26/19 at 21:00 Diclofenac Sodium (Voltaren) 1 mara BID TP Last administered on 03/01/19at 08:09; Start 02/26/19 at 21:00 Artificial Tears (Artificial Tears) 1 drop PRN Q2HR PRN OU DRY EYE Last administered on 02/28/19at 05:12; Start 02/26/19 at 19:15 Ketotifen Fumarate (Zaditor) 1 drop 1X ONCE OU Last administered on 02/27/19at 12:21; Start 02/27/19 at 09:30; Stop 02/27/19 at 09:31; Status DC Atorvastatin Calcium (Lipitor) 20 mg QHS PO Last administered on 02/28/19at 21:41; Start 02/27/19 at 21:00 Sodium Chloride 500 ml @ 500 mls/hr 1X ONCE IV Last administered on 02/28/19at 09:30; Start 02/28/19 at 09:30; Stop 02/28/19 at 10:29; Status DC Alteplase, Recombinant (Cathflo For Central Catheter Clearance) 1 mg 1X ONCE INT CAT ; Start 02/28/19 at 10:15; Stop 02/28/19 at 10:16; Status DC Sodium Chloride 1,000 ml @ 100 mls/hr Q10H IV Last administered on 02/28/19at 12:05; Start 02/28/19 at 12:00; Stop 02/28/19 at 16:41; Status DC Iohexol (Omnipaque 350 Mg/ml) 90 ml 1X ONCE IV Last administered on 02/28/19at 14:25; Start 02/28/19 at 12:30; Stop 02/28/19 at 12:31; Status DC Albuterol Sulfate (Ventolin Neb Soln) 2.5 mg PRN Q4HRS PRN NEB SHORTNESS OF BREATH Last administered on 03/01/19at 09:14; Start 02/28/19 at 13:30 Furosemide (Lasix) 20 mg 1X ONCE IVP Last administered on 02/28/19at 15:54; Start 02/28/19 at 15:30; Stop 02/28/19 at 15:32; Status DC Active Scripts Active Reported Amlodipine Besylate 10 Mg Tablet 10 Mg PO DAILY Tramadol Hcl 50 Mg Tablet 50 Mg PO Q4H PRN Fish Oil 1,000 Mg Capsule ([place]-3 Fatty Acids/Fish Oil) 1 Each Capsule 1 Each PO Vitamin D3 (Cholecalciferol (Vitamin D3)) 5,000 Unit Capsule 5,000 Unit PO Acetaminophen 500 Mg Tablet 500 Mg PO Aspir 81 (Aspirin) 81 Mg Tablet.dr 81 Mg PO Hydrochlorothiazide Tablet (Hydrochlorothiazide) 25 Mg Tablet 25 Mg PO DAILY Pravastatin Sodium 40 Mg Tablet 40 Mg PO DAILY Miralax (Polyethylene Glycol 3350) 17 Gm Powd.pack 1 Pkt PO DAILY [fiber] Temazepam 30 Mg Capsule 30 Mg PO HS PRN Cozaar (Losartan Potassium) 100 Mg Tablet 100 Mg PO DAILY Vitals/I & O Vital Sign - Last 24 Hours 02/28/19 02/28/19 02/28/19 02/28/19 15:01 15:26 15:54 16:06 Temp 98.3 98.3 Pulse 76 96 104 Resp 19 B/P (MAP) 114/58 (76) 133/74 (93) 146/76 (99) Pulse Ox 94 96 97 97 O2 Delivery Nasal Cannula Nasal Cannula O2 Flow Rate 2.0 2.0 02/28/19 02/28/19 02/28/19 02/28/19 16:33 19:30 20:00 20:49 Temp 97.8 97.8 Pulse 88 100 Resp 22 B/P (MAP) 118/67 (84) 84/58 (67) Pulse Ox 98 97 97 O2 Delivery Nasal Cannula Nasal Cannula Nasal Cannula Nasal Cannula O2 Flow Rate 2.0 3.0 2.0 3.0 02/28/19 03/01/19 03/01/19 03/01/19 23:01 00:38 01:40 03:15 Temp 98.0 97.8 98.0 97.8 Pulse 106 80 Resp 17 B/P (MAP) 100/64 (76) 119/59 (79) Pulse Ox 96 98 O2 Delivery Nasal Cannula Nasal Cannula Nasal Cannula Room Air O2 Flow Rate 2.0 2.0 2.0 03/01/19 03/01/19 03/01/19 03/01/19 07:00 07:35 08:51 09:15 Temp 97.9 97.9 Pulse 75 B/P (MAP) 103/57 (72) Pulse Ox 98 98 O2 Delivery Room Air Nasal Cannula Nasal Cannula Nasal Cannula O2 Flow Rate 2.0 2.0 3.0 03/01/19 03/01/19 09:47 10:11 B/P (MAP) 119/59 (79) Pulse Ox 96 O2 Delivery Nasal Cannula O2 Flow Rate 2.0 Intake and Output 02/28/19 02/28/19 03/01/19 14:59 22:59 06:59 Intake Total 490 ml 50 ml 240 ml Output Total 3000 ml Balance 490 ml -2950 ml 240 ml JUNG AYALA III DO March 01, 2019 11:35
--- NOTE | 2019-03-01 11:38 | PDOC ---
Infectious Disease Note Vital Sign Vital Signs Vital Signs Date Time Temp Pulse Resp B/P (MAP) Pulse Ox O2 Delivery O2 Flow Rate FiO2 03/01/19 10:11 96 Nasal Cannula 2.0 03/01/19 09:47 119/59 (79) 03/01/19 07:00 97.9 75 97.9 02/28/19 23:01 17 Labs Lab Laboratory Tests Test 02/28/19 14:55 03/01/19 06:40 03/01/19 08:30 Lactic Acid Level 1.7 mmol/L (0.4-2.0) Sodium Level 144 mmol/L (136-145) Potassium Level 4.0 mmol/L (3.5-5.1) Chloride Level 106 mmol/L (98-107) Carbon Dioxide Level 29 mmol/L (21-32) Anion Gap 9 (6-14) Blood Urea Nitrogen 15 mg/dL (7-20) Creatinine 1.0 mg/dL (0.6-1.0) Estimated GFR (Cockcroft-Gault) 63.6 Glucose Level 93 mg/dL (70-99) Calcium Level 8.5 mg/dL (8.5-10.1) Procalcitonin 1.18 ng/mL (0.00-0.10) White Blood Count 9.5 x10^3/uL (4.0-11.0) Red Blood Count 2.97 x10^6/uL (3.50-5.40) Hemoglobin 9.3 g/dL (12.0-15.5) Hematocrit 28.3 % (36.0-47.0) Mean Corpuscular Volume 95 fL (79-100) Mean Corpuscular Hemoglobin 31 pg (25-35) Mean Corpuscular Hemoglobin Concent 33 g/dL (31-37) Red Cell Distribution Width 13.7 % (11.5-14.5) Platelet Count 295 x10^3/uL (140-400) Neutrophils (%) (Auto) 66 % (31-73) Lymphocytes (%) (Auto) 22 % (24-48) Monocytes (%) (Auto) 8 % (0-9) Eosinophils (%) (Auto) 3 % (0-3) Basophils (%) (Auto) 1 % (0-3) Neutrophils # (Auto) 6.3 x10^3uL (1.8-7.7) Lymphocytes # (Auto) 2.1 x10^3/uL (1.0-4.8) Monocytes # (Auto) 0.7 x10^3/uL (0.0-1.1) Eosinophils # (Auto) 0.3 x10^3/uL (0.0-0.7) Basophils # (Auto) 0.1 x10^3/uL (0.0-0.2) Micro Microbiology 02/22/19 Blood Culture - Final, Complete NO GROWTH AFTER 5 DAYS 02/22/19 Urine Culture - Final, Complete 02/22/19 Urine Culture Result 1 (JIN) - Final, Complete 02/22/19 Antimicrobic Susceptibility - Final, Complete Objective Assessment Sepsis with hypotension, off vasopressor support E. coli UTI, POA Lactic acidosis, better Pulmonary effusions Acute diastolic heart failure NSTEMI Sulfa allergy Diabetes Plan Plan of Care Continue Zosyn Probiotics PICC maintenance care Monitor labs/VS Supportive care D/w nursing Thank you [phone] Patient seen and examined. Chart reviewed in detail. Case discussed with ELECTRONIC ENGINEERING TECHNICIAN. Agree with above plan. LIANE GRIER APRN March 01, 2019 11:38 ENZO CHENG MD March 01, 2019 22:16
--- NOTE | 2019-03-01 11:45 | PDOC ---
CARDIOLOGY PROGRESS NOTE SUBJECTIVE: Continues to suffer from dyspnea and labile BP's. Breathing treatments is helpful. No chest pain. OBJECTIVE: Vital SIgns: Vital Signs Date Time Temp Pulse Resp B/P (MAP) Pulse Ox O2 Delivery O2 Flow Rate FiO2 03/01/19 10:11 96 Nasal Cannula 2.0 03/01/19 09:47 119/59 (79) 03/01/19 07:00 97.9 75 97.9 02/28/19 23:01 17 I & O Intake and Output 03/01/19 07:00 Intake Total 780 ml Output Total 3000 ml Balance -2220 ml Intake Oral 730 ml IV Total 50 ml Output Urine Total 3000 ml # Bowel Movements 1 Objective: Mild tachypnea Bibasilar rales Neck veins flat Left greater than right edema. Soft MR murmur normal heart tones. CURRENT MEDICATIONS: asa, atorvastatin DIAGNOSTIC TESTING: Trop peak at 12 Echo w/ normal LV function CT scan with bilateral pleural effusions. Cr wnl anemia stable ASSESSMENT: 1. Acute on chronic respiratory failure - likely due to diastolic HF and sepsis 2. Acute on chronic diastolic HF - 3. Labile BP's making diuresis difficult 4. PAD PLAN: 1. Will ask pulmonary to plan for thoracentesis as diuresis has been difficult due to her labile Bp's. 2. Will plan for cardiac catheterization given her persistent dyspnea and no clear evidence of PNA but CT scan. 3. Continue asa, statin. Unable to tolerate any BP agents. Supportive care. Will plan for cath on sunday. Thanks. SEGUNDO BRAXTON MD March 01, 2019 11:45
[2019-03-01] MEDS: POLYETHYLENE GLYCOL 3350 17 GM PACKET. PO SCH ×2 (12:39→21:00)
--- NOTE | 2019-03-01 14:22 | PDOC ---
PULMONARY PROGRESS NOTES Subjective PT WITH NO CHANGE IN SYMPTOMS Vitals Vital Signs Date Time Temp Pulse Resp B/P (MAP) Pulse Ox O2 Delivery O2 Flow Rate FiO2 03/01/19 12:44 98 Nasal Cannula 2.0 03/01/19 11:00 97.6 72 132/68 (89) 97.6 02/28/19 23:01 17 ROS: No Nausea, No Chest Pain, No Abdominal Pain, No Increase Cough Lungs: Crackles, Other (DECREASE BS IN BASES) Cardiovascular: S1, S2 Abdomen: Soft Extremities: No Edema Skin: Warm, Dry Labs Laboratory Tests Test 02/28/19 06:50 02/28/19 10:10 02/28/19 14:55 03/01/19 06:40 White Blood Count 7.8 x10^3/uL (4.0-11.0) 9.3 x10^3/uL (4.0-11.0) Red Blood Count 2.83 x10^6/uL (3.50-5.40) 3.18 x10^6/uL (3.50-5.40) Hemoglobin 9.1 g/dL (12.0-15.5) 10.0 g/dL (12.0-15.5) Hematocrit 27.0 % (36.0-47.0) 30.5 % (36.0-47.0) Mean Corpuscular Volume 95 fL (79-100) 96 fL (79-100) Mean Corpuscular Hemoglobin 32 pg (25-35) 31 pg (25-35) Mean Corpuscular Hemoglobin Concent 34 g/dL (31-37) 33 g/dL (31-37) Red Cell Distribution Width 13.9 % (11.5-14.5) 13.9 % (11.5-14.5) Platelet Count 259 x10^3/uL (140-400) 288 x10^3/uL (140-400) D-Dimer (Zainab) 2.97 ug/mlFEU (0.00-0.50) Sodium Level 142 mmol/L (136-145) 144 mmol/L (136-145) Potassium Level 4.0 mmol/L (3.5-5.1) 4.0 mmol/L (3.5-5.1) Chloride Level 105 mmol/L (98-107) 106 mmol/L (98-107) Carbon Dioxide Level 29 mmol/L (21-32) 29 mmol/L (21-32) Anion Gap 8 (6-14) 9 (6-14) Blood Urea Nitrogen 16 mg/dL (7-20) 15 mg/dL (7-20) Creatinine 1.2 mg/dL (0.6-1.0) 1.0 mg/dL (0.6-1.0) Estimated GFR (Cockcroft-Gault) 51.5 63.6 Glucose Level 85 mg/dL (70-99) 93 mg/dL (70-99) Calcium Level 8.4 mg/dL (8.5-10.1) 8.5 mg/dL (8.5-10.1) Magnesium Level 1.8 mg/dL (1.8-2.4) Troponin I Quantitative 0.714 ng/mL (0.000-0.055) Lactic Acid Level 2.4 mmol/L (0.4-2.0) 1.7 mmol/L (0.4-2.0) Procalcitonin 1.18 ng/mL (0.00-0.10) Test 03/01/19 08:30 White Blood Count 9.5 x10^3/uL (4.0-11.0) Red Blood Count 2.97 x10^6/uL (3.50-5.40) Hemoglobin 9.3 g/dL (12.0-15.5) Hematocrit 28.3 % (36.0-47.0) Mean Corpuscular Volume 95 fL (79-100) Mean Corpuscular Hemoglobin 31 pg (25-35) Mean Corpuscular Hemoglobin Concent 33 g/dL (31-37) Red Cell Distribution Width 13.7 % (11.5-14.5) Platelet Count 295 x10^3/uL (140-400) Neutrophils (%) (Auto) 66 % (31-73) Lymphocytes (%) (Auto) 22 % (24-48) Monocytes (%) (Auto) 8 % (0-9) Eosinophils (%) (Auto) 3 % (0-3) Basophils (%) (Auto) 1 % (0-3) Neutrophils # (Auto) 6.3 x10^3uL (1.8-7.7) Lymphocytes # (Auto) 2.1 x10^3/uL (1.0-4.8) Monocytes # (Auto) 0.7 x10^3/uL (0.0-1.1) Eosinophils # (Auto) 0.3 x10^3/uL (0.0-0.7) Basophils # (Auto) 0.1 x10^3/uL (0.0-0.2) Laboratory Tests Test 02/28/19 14:55 03/01/19 06:40 03/01/19 08:30 Lactic Acid Level 1.7 mmol/L (0.4-2.0) Sodium Level 144 mmol/L (136-145) Potassium Level 4.0 mmol/L (3.5-5.1) Chloride Level 106 mmol/L (98-107) Carbon Dioxide Level 29 mmol/L (21-32) Anion Gap 9 (6-14) Blood Urea Nitrogen 15 mg/dL (7-20) Creatinine 1.0 mg/dL (0.6-1.0) Estimated GFR (Cockcroft-Gault) 63.6 Glucose Level 93 mg/dL (70-99) Calcium Level 8.5 mg/dL (8.5-10.1) Procalcitonin 1.18 ng/mL (0.00-0.10) White Blood Count 9.5 x10^3/uL (4.0-11.0) Red Blood Count 2.97 x10^6/uL (3.50-5.40) Hemoglobin 9.3 g/dL (12.0-15.5) Hematocrit 28.3 % (36.0-47.0) Mean Corpuscular Volume 95 fL (79-100) Mean Corpuscular Hemoglobin 31 pg (25-35) Mean Corpuscular Hemoglobin Concent 33 g/dL (31-37) Red Cell Distribution Width 13.7 % (11.5-14.5) Platelet Count 295 x10^3/uL (140-400) Neutrophils (%) (Auto) 66 % (31-73) Lymphocytes (%) (Auto) 22 % (24-48) Monocytes (%) (Auto) 8 % (0-9) Eosinophils (%) (Auto) 3 % (0-3) Basophils (%) (Auto) 1 % (0-3) Neutrophils # (Auto) 6.3 x10^3uL (1.8-7.7) Lymphocytes # (Auto) 2.1 x10^3/uL (1.0-4.8) Monocytes # (Auto) 0.7 x10^3/uL (0.0-1.1) Eosinophils # (Auto) 0.3 x10^3/uL (0.0-0.7) Basophils # (Auto) 0.1 x10^3/uL (0.0-0.2) Medications Active Scripts Medications Dose Route/Sig Max Daily Dose Days Date Category Amlodipine Besylate 10 Mg Tablet 10 Mg PO DAILY 09/23/16 Reported Tramadol Hcl 50 Mg Tablet 50 Mg PO Q4H PRN 04/07/14 Reported Fish Oil 1,000 Mg Capsule ([place]-3 Fatty Acids/Fish Oil) 1 Each Capsule 1 Each PO 04/07/14 Reported Vitamin D3 (Cholecalciferol (Vitamin D3)) 5,000 Unit Capsule 5,000 Unit PO 04/07/14 Reported Acetaminophen 500 Mg Tablet 500 Mg PO 04/07/14 Reported Aspir 81 (Aspirin) 81 Mg Tablet.dr 81 Mg PO 04/07/14 Reported Hydrochlorothiazide Tablet (Hydrochlorothiazide) 25 Mg Tablet 25 Mg PO DAILY 04/07/14 Reported Pravastatin Sodium 40 Mg Tablet 40 Mg PO DAILY 04/07/14 Reported Miralax (Polyethylene Glycol 3350) 17 Gm Powd.pack 1 Pkt PO DAILY 04/07/14 Reported [fiber] 04/07/14 Reported Temazepam 30 Mg Capsule 30 Mg PO HS PRN 04/07/14 Reported Cozaar (Losartan Potassium) 100 Mg Tablet 100 Mg PO DAILY 04/07/14 Reported Impression . IMPRESSION: 1. Acute hypoxemic respiratory failure. 2. Progressive dyspnea, multifactorial secondary to bilateral effusions with atelectasis and vascular congestion, suspect acute diastolic heart failure. 3. Acute diastolic heart failure. 4. Non-ST segment elevation myocardial infarction. 5. Recent sepsis and hypotension, improved. 6. Peripheral vascular disease, status post previous fem-pop and carotid endarterectomy. 7. Valvular heart disease. Plan . PROCALCITONIN 1.18 NOT NOT VERY HIGH D/W DR Angelica MCDANIELS WILL PROCEED WITH THORACENTESIS ON SUNDAY 1. Recommend gentle diuresis, MONITOR CREATINE PT ALSO HYPOTENSIVE 2. Incentive spirometry. 3. Doubt that this is pneumonia. The patient has been on telepathy. Chest x-ray findings are related to an infectious etiology. Recommend deescalating antibiotics. PROCALCITONIN NOT VERY HIGH 4. P.r.n., nebulized treatments. 5. We will follow clinical course and make further recommendations. CAREN GAUTAM MD March 01, 2019 14:22
[2019-03-01] MEDS: ACETAMINOPHEN 325 MG TABLET. PO PRN (19:15)
[2019-03-01] MEDS: ATORVASTATIN CALCIUM 20 MG TABLET PO SCH (21:00)
[2019-03-01] MEDS: TEMAZEPAM 15 MG CAPSULE PO PRN (21:00)
[2019-03-01] MEDS: POLYVINYL ALCOHOL 1.4% OPHTH SOLUTION 15ML BOTTLE. OU PRN (21:00)
[2019-03-02 03:17] VITALS: BP 120/73
[2019-03-02] MEDS: ACETAMINOPHEN 325 MG TABLET. PO PRN (04:32)
--- NOTE | 2019-03-02 04:46 | CONS ---
DATE OF CONSULTATION: 03/01/2019 Bear Stallings APRN, dictating for Enzo Cheng MD REFERRING PHYSICIAN: Dr. Voss. REASON FOR CONSULTATION: Lactic acidosis and hypotension. HISTORY OF PRESENT ILLNESS: This patient is an 84-year-old -[place] female who presented to the ER on 02/22/2019 with complaints of fever of 102.5, shakes/chills, and abdominal pain. She became hypotensive, requiring vasopressor support. Initial WBC count was 13,000 with a normal lactic acid level. Urinalysis showed wbc's 11-20, small leukocyte esterase with a few squamous epithelial cells and many bacteria. Urine culture grew E. coli, 100,000 CFU/mL; resistant to ampicillin, gentamicin, tetracycline, trimethoprim/sulfa and intermediate susceptibility to tobramycin, otherwise sensitive. Blood cultures remained negative. Abdominal/pelvis CT showed distention of the colon with air and stool, suggesting mild colonic ileus. She was initially dosed with Zosyn until 02/23/2019 and then was restarted on the . She has had several bowel movements after taking MiraLax. No further fevers and her chills have settled down. The patient says that she was doing better until yesterday when she transferred to the chair, she felt sick and short of air. Her blood pressure was down to 48/29 and lactic acid was 2.4. Chest x-ray showed ongoing mild interstitial prominence, suggesting low-grade interstitial edema due to congestive heart failure. A followup CTA showed no pulmonary arterial thromboembolic disease; small to moderate sized bilateral pleural effusions, greater on the right; minimal adjacent bibasilar costophrenic sulcus atelectasis; and mild emphysematous involvement of the lung apices. Today, the patient says that she is feeling better. She feels less short of air after having a breathing treatment. She is on 2 liters of supplemental oxygen. Her blood pressure is still somewhat labile. She remains off vasopressor support. No further fevers or chills since admission. She denies headache, nasal/sinus congestion or sore throat. Denies cough, chest pain or palpitations. She has a little bit of nausea without vomiting or cramps. Her appetite is so-so. She denies ill contacts or recent travel. PAST MEDICAL HISTORY: Hypertension, peripheral vascular disease, cataracts, degenerative joint disease, diabetes, hyperlipidemia, COPD, urinary incontinence. PAST SURGICAL HISTORY: Fem-pop bypass. Cataract extraction. FAMILY HISTORY: Positive for heart disease. SOCIAL HISTORY: The patient is a . She lives at home with her son. She is planning to travel to [facility] next month. She enjoys fishing. She no longer does any gardening. She is a nonsmoker. ALLERGIES: SULFA. MEDICATIONS: Zosyn 02/22/2019-02/23/2019, then 02/25/2019 to current. Probiotics, MiraLax. Other medications are available and have been reviewed on the MAR. REVIEW OF SYSTEMS: Per HPI, otherwise all other review of systems are negative. PHYSICAL EXAMINATION: VITAL SIGNS: Temperature 97.9, blood pressure 119/59, heart rate 75, respiratory rate 17, pulse oximetry 96% on 2 liters oxygen. BMI 34. HEENT: Pupils equally round. Normal conjunctivae. Oral cavity and pharynx pink and moist. Dentures in place. NECK: Supple. LUNGS: Diminished aeration in the bases. HEART: S1 and S2. ABDOMEN: Soft and nontender with bowel sounds present. No guarding or rebound. GENITOURINARY: Indwelling Leach in place. EXTREMITIES: No gross edema or cyanosis. SKIN: Warm without generalized rash. NEUROLOGIC: Alert and oriented x 3. LINES: RUE-PICC (02/25) without signs of any complications. LABORATORY DATA: Today's WBC 9.5 from 13.0 on admission; hemoglobin 9.3; platelets 295,000. Creatinine 1.0, BUN 15. Electrolytes are unremarkable. Glucose 93. Lactic acid 1.7 from 2.4. Procalcitonin 1.18 from 2.96 on admission. Troponin 0.714. Recent BNP 2147. Urinalysis and culture per HPI. Influenza screen negative. Echocardiogram showed left ventricular systolic function normal, ejection fraction 55%, normal LV segmental wall motion, no evidence of significant pericardial effusion. IMAGING: Per HPI. IMPRESSION: 1. Sepsis with hypotension, improved, now off vasopressor support. 2. Escherichia coli urinary tract infection present on admission from 02/22/2019. 3. Lactic acidosis, improved. 4. Pulmonary effusions. 5. Acute diastolic heart failure. 6. Non-ST elevation myocardial infarction. 7. SULFA allergy. 8. Diabetes. 9. Mild colonic ileus. PLAN: Continue Zosyn and probiotics. Continue to monitor laboratory values and vital signs. PICC maintenance care. Should the patient's condition worsen, we will reculture and broaden antibiotics. Thank you, Dr. Voss for asking us to participate in this patient's care. Should you have further questions or concerns, please call. ENZO CHENG MD DR: JB/lexi JOB#: [id number] / [id number]
[2019-03-02] MEDS: PIPERACILLIN/TAZOBACTAM 2.25 GM in IV NORMAL SALINE 50ML 50 ML IV SCH ×3 (06:00→17:44)
[2019-03-02 06:09] LABS: CALCIUM 8.9 mg/dL (8.5-10.1); CREATININE 0.9 mg/dL (0.6-1.0); GFR 71.8; POTASSIUM 4.8 mmol/L (3.5-5.1)
[2019-03-02 06:18] LABS: BASO # 0.1 x10^3/uL (0.0-0.2); BASO % 1 % (0-3); EOS % 0 % (0-3); HEMATOCRIT 28.3 % (36.0-47.0); HEMOGLOBIN 9.3 g/dL (12.0-15.5); LYMPH # 1.5 x10^3/uL (1.0-4.8); LYMPH % 13 % (24-48); MEAN CORPUSCULAR HEMOGLOBIN 32 pg (25-35); MEAN CORPUSCULAR HGB CONC 33 g/dL (31-37); MEAN CORPUSCULAR VOLUME 96 fL (79-100); MONO # 0.8 x10^3/uL (0.0-1.1); MONO % 7 % (0-9); NEUT # 9.2 x10^3uL (1.8-7.7); NEUT % 79 % (31-73); PLATELET COUNT 311 x10^3/uL (140-400); RED BLOOD COUNT 2.95 x10^6/uL (3.50-5.40); RED CELL DISTRIBUTION WIDTH 13.9 % (11.5-14.5); WHITE BLOOD COUNT 11.6 x10^3/uL (4.0-11.0)
[2019-03-02 07:00] VITALS: BP 130/66
[2019-03-02] MEDS: LACTOBACILLUS RHAMNOSUS GG 1 CAPSULE. PO SCH ×2 (07:51→21:58)
[2019-03-02] MEDS: ASPIRIN ENTERIC COATED 81 MG TABLET.DR. PO SCH (07:51)
[2019-03-02] MEDS: POLYETHYLENE GLYCOL 3350 17 GM PACKET. PO SCH ×2 (07:51→21:57)
[2019-03-02] MEDS: PANTOPRAZOLE 40 MG TABLET.DR. PO SCH (07:51)
[2019-03-02] MEDS: DICLOFENAC SODIUM 1% TOPICAL GEL 100GM TUBE. TP SCH ×2 (07:59→21:00)
[2019-03-02] MEDS: ALBUTEROL SULFATE 2.5 MG/3 ML NEBU. NEB PRN ×4 (08:17→20:06)
[2019-03-02] MEDS ORDERED: EPINEPHrine SYRINGE 1 MG/10 ML SYRINGE ONE (10:00)
[2019-03-02 11:00] VITALS: BP 115/64
--- NOTE | 2019-03-02 11:21 | PDOC ---
Infectious Disease Note Subjective Subjective Comfortable O2 2L Denies SOA/CP/N/V/D/F/C/S ROS ROS per HPI Vital Sign Vital Signs Vital Signs Date Time Temp Pulse Resp B/P (MAP) Pulse Ox O2 Delivery O2 Flow Rate FiO2 03/02/19 08:21 94 Nasal Cannula 2.0 03/02/19 07:00 98.0 83 18 130/66 (87) 98.0 Physical Exam PHYSICAL EXAM GENRAL: Sitting in the chair, relaxed appearance HEENT: Pupils equally round. Normal conjunctivae. Oral cavity and pharynx pink and moist. Dentures NECK: Supple. LUNGS: Diminished aeration in the bases. HEART: S1 and S2. ABDOMEN: Soft and nontender with bowel sounds present. No guarding or rebound. EXTREMITIES: No gross edema or cyanosis. SKIN: Warm without generalized rash. NEUROLOGIC: Alert and oriented x 3. RUE-PICC (02/25) without signs of any complications. Labs Lab Laboratory Tests Test 03/02/19 05:50 White Blood Count 11.6 x10^3/uL (4.0-11.0) Red Blood Count 2.95 x10^6/uL (3.50-5.40) Hemoglobin 9.3 g/dL (12.0-15.5) Hematocrit 28.3 % (36.0-47.0) Mean Corpuscular Volume 96 fL (79-100) Mean Corpuscular Hemoglobin 32 pg (25-35) Mean Corpuscular Hemoglobin Concent 33 g/dL (31-37) Red Cell Distribution Width 13.9 % (11.5-14.5) Platelet Count 311 x10^3/uL (140-400) Neutrophils (%) (Auto) 79 % (31-73) Lymphocytes (%) (Auto) 13 % (24-48) Monocytes (%) (Auto) 7 % (0-9) Eosinophils (%) (Auto) 0 % (0-3) Basophils (%) (Auto) 1 % (0-3) Neutrophils # (Auto) 9.2 x10^3uL (1.8-7.7) Lymphocytes # (Auto) 1.5 x10^3/uL (1.0-4.8) Monocytes # (Auto) 0.8 x10^3/uL (0.0-1.1) Eosinophils # (Auto) 0.0 x10^3/uL (0.0-0.7) Basophils # (Auto) 0.1 x10^3/uL (0.0-0.2) Sodium Level 143 mmol/L (136-145) Potassium Level 4.8 mmol/L (3.5-5.1) Chloride Level 106 mmol/L (98-107) Carbon Dioxide Level 29 mmol/L (21-32) Anion Gap 8 (6-14) Blood Urea Nitrogen 16 mg/dL (7-20) Creatinine 0.9 mg/dL (0.6-1.0) Estimated GFR (Cockcroft-Gault) 71.8 Glucose Level 127 mg/dL (70-99) Calcium Level 8.9 mg/dL (8.5-10.1) Micro Microbiology 02/22/19 Blood Culture - Final, Complete NO GROWTH AFTER 5 DAYS 02/22/19 Urine Culture - Final, Complete 02/22/19 Urine Culture Result 1 (JIN) - Final, Complete 02/22/19 Antimicrobic Susceptibility - Final, Complete Objective Assessment Sepsis with hypotension, off vasopressor support E. coli UTI, POA Lactic acidosis, better Pulmonary effusions Acute diastolic heart failure NSTEMI Sulfa allergy Diabetes Plan Plan of Care Continue Zosyn Probiotics PICC maintenance care Monitor labs/VS Supportive care D/w nursing Patient seen and examined. Chart reviewed in detail. Case discussed with CASE CHECKER. Agree with above plan. LIANE GRIER APRN March 02, 2019 11:21 ENZO CHENG MD March 02, 2019 18:47
--- NOTE | 2019-03-02 12:03 | PDOC ---
PULMONARY PROGRESS NOTES Subjective STILL SOA COUGH AT TIMES Vitals Vital Signs Date Time Temp Pulse Resp B/P (MAP) Pulse Ox O2 Delivery O2 Flow Rate FiO2 03/02/19 11:00 98.1 81 18 115/64 (81) 95 Nasal Cannula 2.0 98.1 ROS: No Nausea, No Chest Pain, No Abdominal Pain, No Increase Cough Lungs: Crackles, Other (DECREASE BS IN BASES) Cardiovascular: S1, S2 Abdomen: Soft Extremities: No Edema Skin: Warm, Dry Labs Laboratory Tests Test 02/28/19 14:55 03/01/19 06:40 03/01/19 08:30 03/02/19 05:50 Lactic Acid Level 1.7 mmol/L (0.4-2.0) Sodium Level 144 mmol/L (136-145) 143 mmol/L (136-145) Potassium Level 4.0 mmol/L (3.5-5.1) 4.8 mmol/L (3.5-5.1) Chloride Level 106 mmol/L (98-107) 106 mmol/L (98-107) Carbon Dioxide Level 29 mmol/L (21-32) 29 mmol/L (21-32) Anion Gap 9 (6-14) 8 (6-14) Blood Urea Nitrogen 15 mg/dL (7-20) 16 mg/dL (7-20) Creatinine 1.0 mg/dL (0.6-1.0) 0.9 mg/dL (0.6-1.0) Estimated GFR (Cockcroft-Gault) 63.6 71.8 Glucose Level 93 mg/dL (70-99) 127 mg/dL (70-99) Calcium Level 8.5 mg/dL (8.5-10.1) 8.9 mg/dL (8.5-10.1) Procalcitonin 1.18 ng/mL (0.00-0.10) White Blood Count 9.5 x10^3/uL (4.0-11.0) 11.6 x10^3/uL (4.0-11.0) Red Blood Count 2.97 x10^6/uL (3.50-5.40) 2.95 x10^6/uL (3.50-5.40) Hemoglobin 9.3 g/dL (12.0-15.5) 9.3 g/dL (12.0-15.5) Hematocrit 28.3 % (36.0-47.0) 28.3 % (36.0-47.0) Mean Corpuscular Volume 95 fL (79-100) 96 fL (79-100) Mean Corpuscular Hemoglobin 31 pg (25-35) 32 pg (25-35) Mean Corpuscular Hemoglobin Concent 33 g/dL (31-37) 33 g/dL (31-37) Red Cell Distribution Width 13.7 % (11.5-14.5) 13.9 % (11.5-14.5) Platelet Count 295 x10^3/uL (140-400) 311 x10^3/uL (140-400) Neutrophils (%) (Auto) 66 % (31-73) 79 % (31-73) Lymphocytes (%) (Auto) 22 % (24-48) 13 % (24-48) Monocytes (%) (Auto) 8 % (0-9) 7 % (0-9) Eosinophils (%) (Auto) 3 % (0-3) 0 % (0-3) Basophils (%) (Auto) 1 % (0-3) 1 % (0-3) Neutrophils # (Auto) 6.3 x10^3uL (1.8-7.7) 9.2 x10^3uL (1.8-7.7) Lymphocytes # (Auto) 2.1 x10^3/uL (1.0-4.8) 1.5 x10^3/uL (1.0-4.8) Monocytes # (Auto) 0.7 x10^3/uL (0.0-1.1) 0.8 x10^3/uL (0.0-1.1) Eosinophils # (Auto) 0.3 x10^3/uL (0.0-0.7) 0.0 x10^3/uL (0.0-0.7) Basophils # (Auto) 0.1 x10^3/uL (0.0-0.2) 0.1 x10^3/uL (0.0-0.2) Laboratory Tests Test 03/02/19 05:50 White Blood Count 11.6 x10^3/uL (4.0-11.0) Red Blood Count 2.95 x10^6/uL (3.50-5.40) Hemoglobin 9.3 g/dL (12.0-15.5) Hematocrit 28.3 % (36.0-47.0) Mean Corpuscular Volume 96 fL (79-100) Mean Corpuscular Hemoglobin 32 pg (25-35) Mean Corpuscular Hemoglobin Concent 33 g/dL (31-37) Red Cell Distribution Width 13.9 % (11.5-14.5) Platelet Count 311 x10^3/uL (140-400) Neutrophils (%) (Auto) 79 % (31-73) Lymphocytes (%) (Auto) 13 % (24-48) Monocytes (%) (Auto) 7 % (0-9) Eosinophils (%) (Auto) 0 % (0-3) Basophils (%) (Auto) 1 % (0-3) Neutrophils # (Auto) 9.2 x10^3uL (1.8-7.7) Lymphocytes # (Auto) 1.5 x10^3/uL (1.0-4.8) Monocytes # (Auto) 0.8 x10^3/uL (0.0-1.1) Eosinophils # (Auto) 0.0 x10^3/uL (0.0-0.7) Basophils # (Auto) 0.1 x10^3/uL (0.0-0.2) Sodium Level 143 mmol/L (136-145) Potassium Level 4.8 mmol/L (3.5-5.1) Chloride Level 106 mmol/L (98-107) Carbon Dioxide Level 29 mmol/L (21-32) Anion Gap 8 (6-14) Blood Urea Nitrogen 16 mg/dL (7-20) Creatinine 0.9 mg/dL (0.6-1.0) Estimated GFR (Cockcroft-Gault) 71.8 Glucose Level 127 mg/dL (70-99) Calcium Level 8.9 mg/dL (8.5-10.1) Medications Active Scripts Medications Dose Route/Sig Max Daily Dose Days Date Category Amlodipine Besylate 10 Mg Tablet 10 Mg PO DAILY 09/23/16 Reported Tramadol Hcl 50 Mg Tablet 50 Mg PO Q4H PRN 04/07/14 Reported Fish Oil 1,000 Mg Capsule ([place]-3 Fatty Acids/Fish Oil) 1 Each Capsule 1 Each PO 04/07/14 Reported Vitamin D3 (Cholecalciferol (Vitamin D3)) 5,000 Unit Capsule 5,000 Unit PO 04/07/14 Reported Acetaminophen 500 Mg Tablet 500 Mg PO 04/07/14 Reported Aspir 81 (Aspirin) 81 Mg Tablet. 81 Mg PO 04/07/14 Reported Hydrochlorothiazide Tablet (Hydrochlorothiazide) 25 Mg Tablet 25 Mg PO DAILY 04/07/14 Reported Pravastatin Sodium 40 Mg Tablet 40 Mg PO DAILY 04/07/14 Reported Miralax (Polyethylene Glycol 3350) 17 Gm Powd.pack 1 Pkt PO DAILY 04/07/14 Reported [fiber] 04/07/14 Reported Temazepam 30 Mg Capsule 30 Mg PO HS PRN 04/07/14 Reported Cozaar (Losartan Potassium) 100 Mg Tablet 100 Mg PO DAILY 04/07/14 Reported Impression . IMPRESSION: 1. Acute hypoxemic respiratory failure. 2. Progressive dyspnea, multifactorial secondary to bilateral effusions with atelectasis and vascular congestion, suspect acute diastolic heart failure. 3. Acute diastolic heart failure. 4. Non-ST segment elevation myocardial infarction. 5. Recent sepsis and hypotension, improved. 6. Peripheral vascular disease, status post previous fem-pop and carotid endarterectomy. 7. Valvular heart disease. CT Impression: No pulmonary arterial thromboembolic disease although evaluation may be limited in regions of bibasilar lower lobe passive atelectasis due to moderate-sized bilateral pleural effusions. Centrilobular emphysema. Plan . SEE ORDERS D/W FAMILY PROCALCITONIN 1.18 NOT NOT VERY HIGH D/W DR Angelica MCDANIELS WILL PROCEED WITH THORACENTESIS ON SUNDAY CHOLO CROUCH PT AT TIMES IS HYPOTENSIVE IS CAREN GALVEZ MD March 02, 2019 12:03
--- NOTE | 2019-03-02 12:39 | PDOC ---
[employer] PROGRESS NOTE Chief Complaint Chief Complaint Recent sepsis with resolving hypotension Sudden dyspnea: mild CHF NSTEMI: PAD Hx of HTN Valvular insufficiency: Mild AI, mild to mod MR, Mild TR Mild Colonic ileus History of Present Illness History of Present Illness Patient seen and examined She was sitting up in NAD Patient denies SOA while on O2 per NC Edema resolved BP has improved greatly at 130/66 Discussed with nurse Vitals Vitals Vital Signs Date Time Temp Pulse Resp B/P (MAP) Pulse Ox O2 Delivery O2 Flow Rate FiO2 03/02/19 12:12 Nasal Cannula 2.0 03/02/19 11:00 98.1 81 18 115/64 (81) 95 98.1 Physical Exam Physical Exam GENRAL: Sitting in the chair, relaxed appearance HEENT: Pupils equally round. Normal conjunctivae. Oral cavity and pharynx pink and moist. Dentures NECK: Supple. LUNGS: Diminished aeration in the bases. HEART: S1 and S2. ABDOMEN: Soft and nontender with bowel sounds present. No guarding or rebound. EXTREMITIES: No gross edema or cyanosis. SKIN: Warm without generalized rash. NEUROLOGIC: Alert and oriented x 3. RUE-PICC (02/25) without signs of any complications. General: Alert, Oriented X3, No acute distress, Other (improved appearance) Heart: Other (soft S1-S2 intermittent tachycardia) Lungs: Crackles, Other (DECREASE BS IN BASES) Abdomen: Normal bowel sounds Extremities: No clubbing, No cyanosis, No edema, Other (Decreased peripheral pulses in RUE, LUE and LLE, good pulses RLE) Skin: No rashes, No breakdown, No significant lesion Labs LABS Laboratory Tests Test 03/02/19 05:50 White Blood Count 11.6 x10^3/uL (4.0-11.0) Red Blood Count 2.95 x10^6/uL (3.50-5.40) Hemoglobin 9.3 g/dL (12.0-15.5) Hematocrit 28.3 % (36.0-47.0) Mean Corpuscular Volume 96 fL (79-100) Mean Corpuscular Hemoglobin 32 pg (25-35) Mean Corpuscular Hemoglobin Concent 33 g/dL (31-37) Red Cell Distribution Width 13.9 % (11.5-14.5) Platelet Count 311 x10^3/uL (140-400) Neutrophils (%) (Auto) 79 % (31-73) Lymphocytes (%) (Auto) 13 % (24-48) Monocytes (%) (Auto) 7 % (0-9) Eosinophils (%) (Auto) 0 % (0-3) Basophils (%) (Auto) 1 % (0-3) Neutrophils # (Auto) 9.2 x10^3uL (1.8-7.7) Lymphocytes # (Auto) 1.5 x10^3/uL (1.0-4.8) Monocytes # (Auto) 0.8 x10^3/uL (0.0-1.1) Eosinophils # (Auto) 0.0 x10^3/uL (0.0-0.7) Basophils # (Auto) 0.1 x10^3/uL (0.0-0.2) Sodium Level 143 mmol/L (136-145) Potassium Level 4.8 mmol/L (3.5-5.1) Chloride Level 106 mmol/L (98-107) Carbon Dioxide Level 29 mmol/L (21-32) Anion Gap 8 (6-14) Blood Urea Nitrogen 16 mg/dL (7-20) Creatinine 0.9 mg/dL (0.6-1.0) Estimated GFR (Cockcroft-Gault) 71.8 Glucose Level 127 mg/dL (70-99) Calcium Level 8.9 mg/dL (8.5-10.1) Review of Systems Review of Systems Patient denies abdominal pain Patient denies PEÑA Assessment and Plan Assessmemt and Plan Problems Medical Problems: (1) Septic shock Status: Acute Assessment: Recent sepsis with resolving hypotension NSTEMI: Mild Colonic ileus PAD Hx of HTN Valvular insufficiency: Mild AI, mild to mod MR, Mild TR Sudden dyspnea: mild CHF Plan: Cardiac monitoring Continue antibiotics( Zosyn) Gentle diuresis- per pulm Albuterol prn Consideration for ischemic workup Appreciate subspecialist input Labs PT/OT Full code DVT prophylaxis Discharge Dispo: Pending Comment Review of Relevant I have reviewed the following items ne (where applicable) has been applied. Labs Laboratory Tests Test 02/28/19 14:55 03/01/19 06:40 03/01/19 08:30 03/02/19 05:50 Lactic Acid Level 1.7 mmol/L (0.4-2.0) Sodium Level 144 mmol/L (136-145) 143 mmol/L (136-145) Potassium Level 4.0 mmol/L (3.5-5.1) 4.8 mmol/L (3.5-5.1) Chloride Level 106 mmol/L (98-107) 106 mmol/L (98-107) Carbon Dioxide Level 29 mmol/L (21-32) 29 mmol/L (21-32) Anion Gap 9 (6-14) 8 (6-14) Blood Urea Nitrogen 15 mg/dL (7-20) 16 mg/dL (7-20) Creatinine 1.0 mg/dL (0.6-1.0) 0.9 mg/dL (0.6-1.0) Estimated GFR (Cockcroft-Gault) 63.6 71.8 Glucose Level 93 mg/dL (70-99) 127 mg/dL (70-99) Calcium Level 8.5 mg/dL (8.5-10.1) 8.9 mg/dL (8.5-10.1) Procalcitonin 1.18 ng/mL (0.00-0.10) White Blood Count 9.5 x10^3/uL (4.0-11.0) 11.6 x10^3/uL (4.0-11.0) Red Blood Count 2.97 x10^6/uL (3.50-5.40) 2.95 x10^6/uL (3.50-5.40) Hemoglobin 9.3 g/dL (12.0-15.5) 9.3 g/dL (12.0-15.5) Hematocrit 28.3 % (36.0-47.0) 28.3 % (36.0-47.0) Mean Corpuscular Volume 95 fL (79-100) 96 fL (79-100) Mean Corpuscular Hemoglobin 31 pg (25-35) 32 pg (25-35) Mean Corpuscular Hemoglobin Concent 33 g/dL (31-37) 33 g/dL (31-37) Red Cell Distribution Width 13.7 % (11.5-14.5) 13.9 % (11.5-14.5) Platelet Count 295 x10^3/uL (140-400) 311 x10^3/uL (140-400) Neutrophils (%) (Auto) 66 % (31-73) 79 % (31-73) Lymphocytes (%) (Auto) 22 % (24-48) 13 % (24-48) Monocytes (%) (Auto) 8 % (0-9) 7 % (0-9) Eosinophils (%) (Auto) 3 % (0-3) 0 % (0-3) Basophils (%) (Auto) 1 % (0-3) 1 % (0-3) Neutrophils # (Auto) 6.3 x10^3uL (1.8-7.7) 9.2 x10^3uL (1.8-7.7) Lymphocytes # (Auto) 2.1 x10^3/uL (1.0-4.8) 1.5 x10^3/uL (1.0-4.8) Monocytes # (Auto) 0.7 x10^3/uL (0.0-1.1) 0.8 x10^3/uL (0.0-1.1) Eosinophils # (Auto) 0.3 x10^3/uL (0.0-0.7) 0.0 x10^3/uL (0.0-0.7) Basophils # (Auto) 0.1 x10^3/uL (0.0-0.2) 0.1 x10^3/uL (0.0-0.2) Laboratory Tests Test 03/02/19 05:50 White Blood Count 11.6 x10^3/uL (4.0-11.0) Red Blood Count 2.95 x10^6/uL (3.50-5.40) Hemoglobin 9.3 g/dL (12.0-15.5) Hematocrit 28.3 % (36.0-47.0) Mean Corpuscular Volume 96 fL (79-100) Mean Corpuscular Hemoglobin 32 pg (25-35) Mean Corpuscular Hemoglobin Concent 33 g/dL (31-37) Red Cell Distribution Width 13.9 % (11.5-14.5) Platelet Count 311 x10^3/uL (140-400) Neutrophils (%) (Auto) 79 % (31-73) Lymphocytes (%) (Auto) 13 % (24-48) Monocytes (%) (Auto) 7 % (0-9) Eosinophils (%) (Auto) 0 % (0-3) Basophils (%) (Auto) 1 % (0-3) Neutrophils # (Auto) 9.2 x10^3uL (1.8-7.7) Lymphocytes # (Auto) 1.5 x10^3/uL (1.0-4.8) Monocytes # (Auto) 0.8 x10^3/uL (0.0-1.1) Eosinophils # (Auto) 0.0 x10^3/uL (0.0-0.7) Basophils # (Auto) 0.1 x10^3/uL (0.0-0.2) Sodium Level 143 mmol/L (136-145) Potassium Level 4.8 mmol/L (3.5-5.1) Chloride Level 106 mmol/L (98-107) Carbon Dioxide Level 29 mmol/L (21-32) Anion Gap 8 (6-14) Blood Urea Nitrogen 16 mg/dL (7-20) Creatinine 0.9 mg/dL (0.6-1.0) Estimated GFR (Cockcroft-Gault) 71.8 Glucose Level 127 mg/dL (70-99) Calcium Level 8.9 mg/dL (8.5-10.1) Microbiology 02/22/19 Blood Culture - Final, Complete NO GROWTH AFTER 5 DAYS 02/22/19 Urine Culture - Final, Complete 02/22/19 Urine Culture Result 1 (JIN) - Final, Complete 02/22/19 Antimicrobic Susceptibility - Final, Complete Medications Current Medications Sodium Chloride 1,000 ml @ 1,000 mls/hr 1X ONCE IV Last administered on 02/22/19at 21:23; Start 02/22/19 at 20:45; Stop 02/22/19 at 21:44; Status DC Acetaminophen (Tylenol) 650 mg 1X ONCE PO Last administered on 02/22/19at 21:22; Start 02/22/19 at 20:45; Stop 02/22/19 at 20:52; Status DC Piperacillin Sod/ Tazobactam Sod (Zosyn Per Pharmacy) 1 each PRN DAILY PRN MC SEE COMMENTS; Start 02/22/19 at 20:45; Stop 02/23/19 at 14:53; Status DC Piperacillin Sod/ Tazobactam Sod 3.375 gm/Sodium Chloride 50 ml @ 100 mls/hr ONCE ONCE IV Last administered on 02/22/19at 21:23; Start 02/22/19 at 21:00; Stop 02/22/19 at 21:29; Status DC Sodium Chloride 1,000 ml @ 1,000 mls/hr 1X ONCE IV Last administered on 02/22/19at 23:44; Start 02/22/19 at 23:30; Stop 02/23/19 at 00:29; Status DC Sodium Chloride 1,000 ml @ 75 mls/hr [id number] IV Last administered on 02/23/19at 07:38; Start 02/22/19 at 23:30; Stop 02/23/19 at 08:17; Status DC Iohexol (Omnipaque 300 Mg/ml) 60 ml 1X ONCE IV Last administered on 02/23/19at 00:02; Start 02/23/19 at 00:15; Stop 02/23/19 at 00:16; Status DC Info (CONTRAST GIVEN -- Rx MONITORING) 1 each PRN DAILY PRN MC SEE COMMENTS; Start 02/23/19 at 00:15; Stop 02/25/19 at 00:14; Status DC Piperacillin Sod/ Tazobactam Sod 2.25 gm/Sodium Chloride 50 ml @ 100 mls/hr Q6HRS IV Last administered on 02/23/19at 12:26; Start 02/23/19 at 06:00; Stop 02/23/19 at 14:34; Status DC Sodium Chloride 1,000 ml @ 1,000 mls/hr 1X ONCE IV ; Start 02/23/19 at 01:00; Stop 02/23/19 at 01:45; Status DC Sodium Chloride 500 ml @ 500 mls/hr 1X ONCE IV Last administered on 02/23/19at 02:07; Start 02/23/19 at 02:00; Stop 02/23/19 at 02:59; Status DC Norepinephrine Bitartrate 250 ml @ 0 mls/hr 1X ONCE IV ; Start 02/23/19 at 02:00; Stop 02/23/19 at 02:01; Status DC Sodium Chloride 500 ml @ 500 mls/hr 1X ONCE IV Last administered on 02/23/19at 06:10; Start 02/23/19 at 02:00; Stop 02/23/19 at 02:59; Status DC Norepinephrine Bitartrate 250 ml @ 1.875 mls/ hr CONT PRN IV SEE I/O RECORD Last administered on 02/26/19 09:00; Start 02/23/19 at 03:15; Stop 02/27/19 at 14:17; Status DC Ondansetron HCl (Zofran) 4 mg PRN Q6HRS PRN IV NAUSEA/VOMITING Last administered on 02/24/19 23:21; Start 02/23/19 at 03:15 Iohexol (Omnipaque 300 Mg/ml) 100 ml STK-MED ONCE .ROUTE ; Start 02/23/19 at 04:24; Stop 02/23/19 at 04:25; Status DC Sodium Chloride 500 ml @ 500 mls/hr 1X ONCE IV Last administered on 02/23/19at 08:28; Start 02/23/19 at 07:45; Stop 02/23/19 at 08:44; Status DC Acetaminophen (Tylenol) 650 mg PRN Q6HRS PRN PO MILD PAIN / TEMP Last administered on 03/02/19 04:32; Start 02/23/19 at 08:15 Ringer's Solution 1,000 ml @ 100 mls/hr Q10H IV Last administered on 02/27/19 23:15; Start 02/23/19 at 08:30; Stop 02/28/19 at 11:55; Status DC Ringer's Solution 500 ml @ 500 mls/hr 1X ONCE IV Last administered on 02/23/19at 09:23; Start 02/23/19 at 09:15; Stop 02/23/19 at 10:14; Status DC Dopamine HCl/ Dextrose 250 ml @ 5.749 mls/ hr CONT PRN IV SEE I/O RECORD Last administered on 02/25/19at 05:11; Start 02/23/19 at 12:15 Tramadol HCl (Ultram) 50 mg PRN Q6HRS PRN PO MODERATE-SEVERE PAIN Last administered on 03/01/19 22:41; Start 02/23/19 at 12:30 Heparin Sodium (Porcine) (Heparin Sodium) 4,000 unit 1X ONCE IV Last administered on 02/23/19at 13:30; Start 02/23/19 at 13:00; Stop 02/23/19 at 13:01; Status DC Heparin Sodium/ Dextrose 500 ml @ 0 mls/hr CONT PRN IV SEE I/O RECORD Last administered on 02/25/19 05:12; Start 02/23/19 at 13:00; Stop 02/26/19 at 13:01; Status DC Heparin Sodium (Porcine) (Heparin Sodium) 1,900 unit PRN Q6HRS PRN IV FOR UFH LEVEL LESS THAN 0.2 Last administered on 02/25/19 09:35; Start 02/23/19 at 13:00; Stop 02/26/19 at 13:01; Status DC Polyethylene Glycol (miraLAX PACKET) 17 gm PRN BID PRN PO CONSTIPATION Last administered on 02/23/19 14:38; Start 02/23/19 at 13:15; Stop 02/23/19 at 14:59; Status DC Info (Anti-Coagulation Monitoring By Pharmacy) 1 each PRN DAILY PRN MC SEE COMMENTS Last administered on 02/26/19 08:00; Start 02/23/19 at 13:30; Stop 02/26/19 at 13:50; Status DC Temazepam (Restoril) 15 mg PRN QHS PRN PO INSOMNIA Last administered on 03/01/19 21:00; Start 02/23/19 at 14:45 Piperacillin Sod/ Tazobactam Sod 2.25 gm/Sodium Chloride 50 ml @ 100 mls/hr Q6HRS IV ; Start 02/23/19 at 18:00; Stop 02/23/19 at 18:00; Status DC Polyethylene Glycol (miraLAX PACKET) 17 gm BID PO Last administered on 03/02/19 07:51; Start 02/23/19 at 21:00 Multi-Ingredient Ointment (Analgesic [place]) 1 mara PRN QID PRN TP MUSCLE PAIN Last administered on 02/27/19 09:18; Start 02/23/19 at 18:00 Pantoprazole Sodium (Protonix) 40 mg DAILYAC PO Last administered on 03/02/19 07:51; Start 02/24/19 at 17:30 Aspirin (Ecotrin) 325 mg 1X ONCE PO Last administered on 02/25/19 09:31; Start 02/25/19 at 09:15; Stop 02/25/19 at 09:16; Status DC Aspirin (Ecotrin) 81 mg DAILYWBKFT PO Last administered on 03/02/19at 07:51; Start 02/26/19 at 08:00 Potassium Chloride (Klor-Con) 40 meq 1X ONCE PO Last administered on 02/25/19at 09:32; Start 02/25/19 at 09:15; Stop 02/25/19 at 09:16; Status DC Magnesium Sulfate/ Dextrose 100 ml @ 25 mls/hr 1X ONCE IV Last administered on 02/25/19at 11:49; Start 02/25/19 at 11:30; Stop 02/25/19 at 15:29; Status DC Piperacillin Sod/ Tazobactam Sod (Zosyn Per Pharmacy) 1 each PRN DAILY PRN MC SEE COMMENTS; Start 02/25/19 at 16:45 Piperacillin Sod/ Tazobactam Sod 2.25 gm/Sodium Chloride 50 ml @ 100 mls/hr Q6HRS IV Last administered on 03/02/19at 11:11; Start 02/25/19 at 18:00 Bisacodyl (Dulcolax Tab) 10 mg 1X ONCE PO Last administered on 02/26/19at 10:00; Start 02/26/19 at 10:00; Stop 02/26/19 at 10:01; Status DC Methylprednisolone Acetate (DEPO-Medrol 40MG VIAL) 40 mg 1X ONCE IM ; Start 02/26/19 at 12:15; Stop 02/26/19 at 12:20; Status DC Bupivacaine HCl (Sensorcaine-Mpf 0.25%) 10 ml 1X ONCE IJ ; Start 02/26/19 at 12:15; Stop 02/26/19 at 12:20; Status DC Methylprednisolone Acetate (DEPO-Medrol 40MG VIAL) 40 mg 1X ONCE IM ; Start 02/27/19 at 08:00; Stop 02/27/19 at 08:01; Status DC Bupivacaine HCl (Sensorcaine-Mpf 0.25%) 10 ml 1X ONCE IJ ; Start 02/27/19 at 08:00; Stop 02/27/19 at 08:01; Status DC Lactobacillus Rhamnosus (Culturelle) 1 cap BID PO Last administered on 03/02/19at 07:51; Start 02/26/19 at 21:00 Diclofenac Sodium (Voltaren) 1 mara BID TP Last administered on 03/01/19at 08:09; Start 02/26/19 at 21:00 Artificial Tears (Artificial Tears) 1 drop PRN Q2HR PRN OU DRY EYE Last administered on 03/01/19at 21:00; Start 02/26/19 at 19:15 Ketotifen Fumarate (Zaditor) 1 drop 1X ONCE OU Last administered on 02/27/19at 12:21; Start 02/27/19 at 09:30; Stop 02/27/19 at 09:31; Status DC Atorvastatin Calcium (Lipitor) 20 mg QHS PO Last administered on 03/01/19at 21:00; Start 02/27/19 at 21:00 Sodium Chloride 500 ml @ 500 mls/hr 1X ONCE IV Last administered on 02/28/19at 09:30; Start 02/28/19 at 09:30; Stop 02/28/19 at 10:29; Status DC Alteplase, Recombinant (Cathflo For Central Catheter Clearance) 1 mg 1X ONCE INT CAT ; Start 02/28/19 at 10:15; Stop 02/28/19 at 10:16; Status DC Sodium Chloride 1,000 ml @ 100 mls/hr Q10H IV Last administered on 02/28/19at 12:05; Start 02/28/19 at 12:00; Stop 02/28/19 at 16:41; Status DC Iohexol (Omnipaque 350 Mg/ml) 90 ml 1X ONCE IV Last administered on 02/28/19at 14:25; Start 02/28/19 at 12:30; Stop 02/28/19 at 12:31; Status DC Albuterol Sulfate (Ventolin Neb Soln) 2.5 mg PRN Q4HRS PRN NEB SHORTNESS OF BREATH Last administered on 03/02/19at 12:11; Start 02/28/19 at 13:30 Furosemide (Lasix) 20 mg 1X ONCE IVP Last administered on 02/28/19at 15:54; Start 02/28/19 at 15:30; Stop 02/28/19 at 15:32; Status DC Active Scripts Active Reported Amlodipine Besylate 10 Mg Tablet 10 Mg PO DAILY Tramadol Hcl 50 Mg Tablet 50 Mg PO Q4H PRN Fish Oil 1,000 Mg Capsule ([place]-3 Fatty Acids/Fish Oil) 1 Each Capsule 1 Each PO Vitamin D3 (Cholecalciferol (Vitamin D3)) 5,000 Unit Capsule 5,000 Unit PO Acetaminophen 500 Mg Tablet 500 Mg PO Aspir 81 (Aspirin) 81 Mg Tablet.dr 81 Mg PO Hydrochlorothiazide Tablet (Hydrochlorothiazide) 25 Mg Tablet 25 Mg PO DAILY Pravastatin Sodium 40 Mg Tablet 40 Mg PO DAILY Miralax (Polyethylene Glycol 3350) 17 Gm Powd.pack 1 Pkt PO DAILY [fiber] Temazepam 30 Mg Capsule 30 Mg PO HS PRN Cozaar (Losartan Potassium) 100 Mg Tablet 100 Mg PO DAILY Vitals/I & O Vital Sign - Last 24 Hours 03/01/19 03/01/19 03/01/19 03/01/19 12:44 13:57 15:00 15:47 Temp 97.8 97.8 Pulse 83 Resp 18 B/P (MAP) 125/64 (84) 125/64 (84) Pulse Ox 98 95 92 O2 Delivery Nasal Cannula Room Air Room Air O2 Flow Rate 2.0 03/01/19 03/01/19 03/01/19 03/01/19 19:22 19:37 19:50 22:35 Temp 97.7 98.1 97.7 98.1 Pulse 100 94 Resp 20 20 B/P (MAP) 133/79 (97) 149/76 (100) Pulse Ox 92 98 100 O2 Delivery Nasal Cannula Room Air Room Air Room Air O2 Flow Rate 2.0 03/01/19 03/01/19 03/02/19 03/02/19 22:41 23:45 03:17 07:00 Temp 98.0 98.0 98.0 98.0 Pulse 94 83 Resp 16 18 20 18 B/P (MAP) 120/73 (89) 130/66 (87) Pulse Ox 92 92 O2 Delivery Room Air Nasal Cannula Nasal Cannula O2 Flow Rate 2.0 2.0 03/02/19 03/02/19 03/02/19 03/02/19 07:30 08:21 11:00 12:12 Temp 98.1 98.1 Pulse 81 Resp 18 B/P (MAP) 115/64 (81) Pulse Ox 94 95 O2 Delivery Nasal Cannula Nasal Cannula Nasal Cannula Nasal Cannula O2 Flow Rate 2.0 2.0 2.0 2.0 Intake and Output 03/01/19 03/01/19 03/02/19 15:00 23:00 07:00 Intake Total 180 ml 300 ml Output Total 1500 ml 225 ml Balance 180 ml -1200 ml -225 ml JUNG AYALA III DO March 02, 2019 12:39
[2019-03-02 14:43] VITALS: BP 133/68
--- NOTE | 2019-03-02 16:27 | PDOC ---
CARDIOLOGY PROGRESS NOTE SUBJECTIVE: No new events overnight. Continues to have dyspnea with minimal exertion. OBJECTIVE: Vital SIgns: Vital Signs Date Time Temp Pulse Resp B/P (MAP) Pulse Ox O2 Delivery O2 Flow Rate FiO2 03/02/19 14:43 97.5 79 18 133/68 (89) 91 Room Air 97.5 03/02/19 12:12 2.0 I & O Intake and Output 03/02/19 06:59 Intake Total 480 ml Output Total 1725 ml Balance -1245 ml Intake Oral 480 ml Output Urine Total 1725 ml Objective: Bilateral rales present Normal heart tones Left greater than right edema. Soft abdomen. She appears tachypneic and in minimal distress. CURRENT MEDICATIONS: Pertinent cardiovascular medications include aspirin and atorvastatin DIAGNOSTIC TESTING: Hemoglobin, creatinine within normal limits. ASSESSMENT: 1. Non-STEMI 2. Diastolic heart failure 3. Sepsis improved 4. Labile blood pressures. PLAN: 1. Discussed with Dr. Kaur. Plan for thoracentesis tomorrow. When she is able to lay flat, either tomorrow after noon or sunday, will plan for cath. Thanks SEGUNDO BRAXTON MD March 02, 2019 16:27
[2019-03-02] MEDS ORDERED: METOPROLOL TARTRATE 5 MG/5 ML VIAL. IVP ONE (18:45)
[2019-03-02 19:00] VITALS: BP 98/60
--- NOTE | 2019-03-02 19:10 | EKG ---
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
[2019-03-02] MEDS: TEMAZEPAM 15 MG CAPSULE PO PRN (21:58)
[2019-03-02] MEDS: ATORVASTATIN CALCIUM 20 MG TABLET PO SCH (21:59)
[2019-03-02] MEDS: traMADol 50 MG TABLET PO PRN (21:59)
[2019-03-02 23:00] VITALS: BP 102/60
[2019-03-03] VITALS (20 sets, daily range): BP systolic 90–140; BP diastolic 40–83
--- NOTE | 2019-03-03 05:20 | NUR ---
Pt c/o increased SOA. Listened to pt's lungs and found pt to have an increase in crackles. O2 sat at this time 93% on 2L NC. Paged RT for a PRN breathing treatment. Discussed placing pt on BIPAP with RT. RT went to retrieve a BIPAP machine and the zinc furnace charger came to monitor the pt while I went to the nursing station to page Dr Kaur on pt condition change. Upon coming to the desk, I witnessed the pt's HR goyo down to the 30's on the desktop publishing specialist. I called a code and the pt went unresponsive and was agonal breathing. Pt was PEA. CPR was started and code team responded to bedside. Refer to code sheet.
[2019-03-03 05:32] LABS: BASO % 0 % (0-3); EOS # 0.3 x10^3/uL (0.0-0.7); EOS % 2 % (0-3); HEMOGLOBIN 11.3 g/dL (12.0-15.5); LYMPH # 7.6 x10^3/uL (1.0-4.8); LYMPH % 36 % (24-48); MEAN CORPUSCULAR HEMOGLOBIN 31 pg (25-35); MEAN CORPUSCULAR HGB CONC 31 g/dL (31-37); MEAN CORPUSCULAR VOLUME 98 fL (79-100); MONO # 1.6 x10^3/uL (0.0-1.1); MONO % 8 % (0-9); NEUT # 11.6 x10^3uL (1.8-7.7); NEUT % 55 % (31-73); PLATELET COUNT 427 x10^3/uL (140-400); RED BLOOD COUNT 3.66 x10^6/uL (3.50-5.40); RED CELL DISTRIBUTION WIDTH 14.7 % (11.5-14.5); WHITE BLOOD COUNT 21.2 x10^3/uL (4.0-11.0)
[2019-03-03 05:42] LABS: CALCIUM 9.7 mg/dL (8.5-10.1); CREATININE 1.1 mg/dL (0.6-1.0)
[2019-03-03 05:43] LABS: POTASSIUM 5.6 mmol/L (3.5-5.1)
[2019-03-03] MEDS ORDERED: ETOMIDATE 20 MG/10 ML VIAL. IV ONE (05:44)
[2019-03-03] MEDS ORDERED: SUCCINYLCHOLINE 200 MG/10 ML VIAL. ONE (05:45)
--- NOTE | 2019-03-03 05:45 | NUR ---
pt transferred to room 106 from [facility] at this time. pt intubated during code, placed on Propofol upon arrival to ICU d/t pt coughing, fighting vent and waking up. VSS on 100% on ventilator. family contacted by CVC nurse, here at this time and updated on plan of care and current condition; questions answered. jones and OG placed without difficulty, xrays ordered to follow up with placement of OG. PICC to RUE remains intact. will pass on in report, will continue to closely monitor.
--- NOTE | 2019-03-03 06:07 | PDOC5 ---
CODE REPORT CODE REPORT 84 yo f , called to [facility]. Approximately 5:25 AM I arrived just a couple minutes later I ran up there as fast as I could. Patient had a bradycardic arrest likely respiratory in nature had a history of pleural effusions. Attention paid to the airway immediately CPR was in progress epinephrine was being given, we [id number] the patient eventually I did get a Mac 4 blade I was able to place a 7.5 tube somewhat anterior grade 2 view confirmed with end- tidal CO2 and bilateral breath sounds. We did get a return of spontaneous circulation after just a few minutes approximately 5-6 minutes code report for total information, return rhythm was tachycardic with blood pressure in the 190s patient was tonguing somewhat at the tube, we did give 10 of etomidate for trasnfer down to icu. As of this dictation 6:05 AM the ICU nurse who is in charge of the patient has ordered a stat chest x-ray is not yet performed I did ask that nurse to have attending staff physician reviewed the x-ray. Patients blood pressures in the 140s I did give a verbal order for propofol as needed for any agitation. Further management per primary service Critical care time was 35 minutes exclusive of procedures. RANGEL HARRISON MD March 03, 2019 06:06
[2019-03-03] MEDS ORDERED: PROPOFOL 100 ML IV ONE (06:16)
[2019-03-03] MEDS: PIPERACILLIN/TAZOBACTAM 2.25 GM in IV NORMAL SALINE 50ML 50 ML IV SCH ×6 (06:25→23:40)
[2019-03-03] MEDS: PROPOFOL 100 ML IV PRN ×3 (06:25→18:27)
[2019-03-03] MEDS ORDERED: POLYVINYL ALCOHOL 1.4% OPHTH SOLUTION 15ML BOTTLE. OU PRN (07:00)
[2019-03-03] MEDS ORDERED: MIDAZOLAM 100mg/100ml NS BAG 100 ML IV PRN (07:00)
[2019-03-03] MEDS: NOREPINEPHRIN 8MG/250ML PREMIX 250 ML IV PRN ×2 (07:02→21:29)
[2019-03-03 08:25] LABS: BASE EXCESS ABG -6 mmol/L (-3-3); HCO3 ABG 19 mmol/L (21-28); PCO2 ABG 35 mmHg (35-46); PO2 ABG 65 mmHg (65-108); SAT O2 ABG 91 % (92-99)
[2019-03-03 08:26] LABS: FIO2 ABG 40
--- NOTE | 2019-03-03 08:34 | PDOC ---
PULMONARY PROGRESS NOTES Subjective PT CODED S/P PEA NOW INTUBATED Vitals Vital Signs Date Time Temp Pulse Resp B/P (MAP) Pulse Ox O2 Delivery O2 Flow Rate FiO2 03/03/19 08:15 Ventilator 03/03/19 08:00 70 16 101/60 (74) 40 03/03/19 07:00 98.2 98.2 03/03/19 03:00 2.0 Lungs: Crackles, Other (DECREASE BS IN BASES) Cardiovascular: S1, S2 Abdomen: Soft Extremities: No Edema Skin: Warm, Dry Labs Laboratory Tests Test 03/02/19 05:50 03/03/19 04:45 03/03/19 05:32 03/03/19 08:00 White Blood Count 11.6 x10^3/uL (4.0-11.0) 21.2 x10^3/uL (4.0-11.0) Red Blood Count 2.95 x10^6/uL (3.50-5.40) 3.66 x10^6/uL (3.50-5.40) Hemoglobin 9.3 g/dL (12.0-15.5) 11.3 g/dL (12.0-15.5) Hematocrit 28.3 % (36.0-47.0) 36.0 % (36.0-47.0) Mean Corpuscular Volume 96 fL (79-100) 98 fL (79-100) Mean Corpuscular Hemoglobin 32 pg (25-35) 31 pg (25-35) Mean Corpuscular Hemoglobin Concent 33 g/dL (31-37) 31 g/dL (31-37) Red Cell Distribution Width 13.9 % (11.5-14.5) 14.7 % (11.5-14.5) Platelet Count 311 x10^3/uL (140-400) 427 x10^3/uL (140-400) Neutrophils (%) (Auto) 79 % (31-73) 55 % (31-73) Lymphocytes (%) (Auto) 13 % (24-48) 36 % (24-48) Monocytes (%) (Auto) 7 % (0-9) 8 % (0-9) Eosinophils (%) (Auto) 0 % (0-3) 2 % (0-3) Basophils (%) (Auto) 1 % (0-3) 0 % (0-3) Neutrophils # (Auto) 9.2 x10^3uL (1.8-7.7) 11.6 x10^3uL (1.8-7.7) Lymphocytes # (Auto) 1.5 x10^3/uL (1.0-4.8) 7.6 x10^3/uL (1.0-4.8) Monocytes # (Auto) 0.8 x10^3/uL (0.0-1.1) 1.6 x10^3/uL (0.0-1.1) Eosinophils # (Auto) 0.0 x10^3/uL (0.0-0.7) 0.3 x10^3/uL (0.0-0.7) Basophils # (Auto) 0.1 x10^3/uL (0.0-0.2) 0.0 x10^3/uL (0.0-0.2) Sodium Level 143 mmol/L (136-145) 146 mmol/L (136-145) Potassium Level 4.8 mmol/L (3.5-5.1) 5.6 mmol/L (3.5-5.1) Chloride Level 106 mmol/L (98-107) 106 mmol/L (98-107) Carbon Dioxide Level 29 mmol/L (21-32) 26 mmol/L (21-32) Anion Gap 8 (6-14) 14 (6-14) Blood Urea Nitrogen 16 mg/dL (7-20) 21 mg/dL (7-20) Creatinine 0.9 mg/dL (0.6-1.0) 1.1 mg/dL (0.6-1.0) Estimated GFR (Cockcroft-Gault) 71.8 57.0 Glucose Level 127 mg/dL (70-99) 161 mg/dL (70-99) Calcium Level 8.9 mg/dL (8.5-10.1) 9.7 mg/dL (8.5-10.1) Glucose (Fingerstick) 157 mg/dL (70-99) O2 Saturation 91 % (92-99) Arterial Blood pH 7.35 (7.35-7.45) Arterial Blood pCO2 at Patient Temp 35 mmHg (35-46) Arterial Blood pO2 at Patient Temp 65 mmHg (65-108) Arterial Blood HCO3 19 mmol/L (21-28) Arterial Blood Base Excess -6 mmol/L (-3-3) FiO2 40 Laboratory Tests Test 03/03/19 04:45 03/03/19 05:32 03/03/19 08:00 White Blood Count 21.2 x10^3/uL (4.0-11.0) Red Blood Count 3.66 x10^6/uL (3.50-5.40) Hemoglobin 11.3 g/dL (12.0-15.5) Hematocrit 36.0 % (36.0-47.0) Mean Corpuscular Volume 98 fL (79-100) Mean Corpuscular Hemoglobin 31 pg (25-35) Mean Corpuscular Hemoglobin Concent 31 g/dL (31-37) Red Cell Distribution Width 14.7 % (11.5-14.5) Platelet Count 427 x10^3/uL (140-400) Neutrophils (%) (Auto) 55 % (31-73) Lymphocytes (%) (Auto) 36 % (24-48) Monocytes (%) (Auto) 8 % (0-9) Eosinophils (%) (Auto) 2 % (0-3) Basophils (%) (Auto) 0 % (0-3) Neutrophils # (Auto) 11.6 x10^3uL (1.8-7.7) Lymphocytes # (Auto) 7.6 x10^3/uL (1.0-4.8) Monocytes # (Auto) 1.6 x10^3/uL (0.0-1.1) Eosinophils # (Auto) 0.3 x10^3/uL (0.0-0.7) Basophils # (Auto) 0.0 x10^3/uL (0.0-0.2) Sodium Level 146 mmol/L (136-145) Potassium Level 5.6 mmol/L (3.5-5.1) Chloride Level 106 mmol/L (98-107) Carbon Dioxide Level 26 mmol/L (21-32) Anion Gap 14 (6-14) Blood Urea Nitrogen 21 mg/dL (7-20) Creatinine 1.1 mg/dL (0.6-1.0) Estimated GFR (Cockcroft-Gault) 57.0 Glucose Level 161 mg/dL (70-99) Calcium Level 9.7 mg/dL (8.5-10.1) Glucose (Fingerstick) 157 mg/dL (70-99) O2 Saturation 91 % (92-99) Arterial Blood pH 7.35 (7.35-7.45) Arterial Blood pCO2 at Patient Temp 35 mmHg (35-46) Arterial Blood pO2 at Patient Temp 65 mmHg (65-108) Arterial Blood HCO3 19 mmol/L (21-28) Arterial Blood Base Excess -6 mmol/L (-3-3) FiO2 40 Medications Active Scripts Medications Dose Route/Sig Max Daily Dose Days Date Category Amlodipine Besylate 10 Mg Tablet 10 Mg PO DAILY 09/23/16 Reported Tramadol Hcl 50 Mg Tablet 50 Mg PO Q4H PRN 04/07/14 Reported Fish Oil 1,000 Mg Capsule ([place]-3 Fatty Acids/Fish Oil) 1 Each Capsule 1 Each PO 04/07/14 Reported Vitamin D3 (Cholecalciferol (Vitamin D3)) 5,000 Unit Capsule 5,000 Unit PO 04/07/14 Reported Acetaminophen 500 Mg Tablet 500 Mg PO 04/07/14 Reported Aspir 81 (Aspirin) 81 Mg Tablet.dr 81 Mg PO 04/07/14 Reported Hydrochlorothiazide Tablet (Hydrochlorothiazide) 25 Mg Tablet 25 Mg PO DAILY 04/07/14 Reported Pravastatin Sodium 40 Mg Tablet 40 Mg PO DAILY 04/07/14 Reported Miralax (Polyethylene Glycol 3350) 17 Gm Powd.pack 1 Pkt PO DAILY 04/07/14 Reported [fiber] 04/07/14 Reported Temazepam 30 Mg Capsule 30 Mg PO HS PRN 04/07/14 Reported Cozaar (Losartan Potassium) 100 Mg Tablet 100 Mg PO DAILY 04/07/14 Reported Impression . IMPRESSION: 1. Acute hypoxemic respiratory failure. 2. Progressive dyspnea, multifactorial secondary to bilateral effusions with atelectasis and vascular congestion, suspect acute diastolic heart failure. 3. Acute diastolic heart failure. 4. Non-ST segment elevation myocardial infarction. 5. Recent sepsis and hypotension, improved. 6. Peripheral vascular disease, status post previous fem-pop and carotid endarterectomy. 7. Valvular heart disease. 8/ S/P CARDIOPULMONARY ARREST IN HOUSE 03/02 CT Impression: No pulmonary arterial thromboembolic disease although evaluation may be limited in regions of bibasilar lower lobe passive atelectasis due to moderate-sized bilateral pleural effusions. Centrilobular emphysema. Plan . HOLD THORACENTESIS D/W CARD POSSIBLE CARD INTERVENTION PT IN THE PAST HAS BEEN HYPOTENSION DIURESE PER CARD PROCALCITONIN 1.18 NOT NOT VERY HIGH NEB D/W FAMILY CCT 35 MIN CAREN GAUTAM MD March 03, 2019 08:34
--- NOTE | 2019-03-03 08:39 | RAD ---
PORTABLE CHEST 1V History: OG tube, endotracheal tube Comparison: None. Findings: Single view of the chest is submitted. There is now endotracheal tube, tip at the orifice of the right mainstem bronchus. There is right upper extremity PICC, tip in the mid aspect of the superior vena cava. There is an enteric catheter now present coursing into the stomach, not fully seen. There is some increased reticular and patchy airspace opacity greatest in the perihilar regions right greater than left and also at the lung bases greater on the right. There is atherosclerotic calcification thoracic aorta. Cardiac silhouette is borderline, unchanged in the interval. There is no pneumothorax or significant dependent pleural fluid. Impression: 1. Tip of the endotracheal tube is at the orifice of the right mainstem bronchus for which retraction advised. 2. There is increased perihilar opacity and at the right lung base which may be due to infiltrates or and/or edema. FOR INTERNAL CODING PURPOSES Critical result: Findings discussed with patient's nurse Marlene at 03/03/2019 8:35 AM. RESULT CODE: (C) Electronically signed by: William Nieto MD (03/03/2019 8:36 AM) [email or web address]
--- NOTE | 2019-03-03 08:47 | RAD ---
KUB History: OG tube Comparison: February 07, 2018 Findings: Single supine upright AP view centered upon the level of the hemidiaphragms is submitted. There is enteric catheter coursing into the stomach. The entirety of the abdomen pelvis was not included, visualized bowel not significantly dilated. Impression: 1. Tip of enteric catheter terminates in the stomach. Electronically signed by: William Nieto MD (03/03/2019 8:44 AM) [id number]
[2019-03-03] MEDS: POLYETHYLENE GLYCOL 3350 17 GM PACKET. PO SCH ×2 (09:13→21:26)
[2019-03-03] MEDS: DICLOFENAC SODIUM 1% TOPICAL GEL 100GM TUBE. TP SCH ×2 (09:13→21:27)
[2019-03-03] MEDS: PANTOPRAZOLE 40 MG TABLET.DR. PO SCH (09:13)
[2019-03-03] MEDS: ASPIRIN ENTERIC COATED 81 MG TABLET.DR. PO SCH (09:13)
[2019-03-03] MEDS: LACTOBACILLUS RHAMNOSUS GG 1 CAPSULE. PO SCH (09:13)
[2019-03-03] MEDS: CHLORHEXIDINE 0.12% 15 ML MOUTHWASH. MM SCH ×2 (09:14→21:26)
--- NOTE | 2019-03-03 09:59 | PDOC ---
Infectious Disease Note Subjective Subjective s/p cold blue/CPR, PEA Now in ICU Sedated and intubated, FiO2 50% Hypotensive, Levophed 12 mcg No fevers last 24 hours ROS ROS unobtainable Vital Sign Vital Signs Vital Signs Date Time Temp Pulse Resp B/P (MAP) Pulse Ox O2 Delivery O2 Flow Rate FiO2 03/03/19 09:00 71 16 94/54 (67) 97 Ventilator 03/03/19 07:00 98.2 98.2 03/03/19 03:00 2.0 Physical Exam PHYSICAL EXAM GENERAL: Sedated and orally intubated - opened eyes HEENT: Pupils equally round, small. Normal conjunctivae. OGT, ETT NECK: Supple. LUNGS: + rhonchi HEART: S1 and S2. ABDOMEN: Soft : Leach in place EXTREMITIES: No gross edema or cyanosis. SKIN: Warm without generalized rash. NEUROLOGIC: Sedated/unresponsive aside from opening eyes RUE-PICC (02/25) without signs of any complications. Labs Lab Laboratory Tests Test 03/03/19 04:45 03/03/19 05:32 03/03/19 08:00 White Blood Count 21.2 x10^3/uL (4.0-11.0) Red Blood Count 3.66 x10^6/uL (3.50-5.40) Hemoglobin 11.3 g/dL (12.0-15.5) Hematocrit 36.0 % (36.0-47.0) Mean Corpuscular Volume 98 fL (79-100) Mean Corpuscular Hemoglobin 31 pg (25-35) Mean Corpuscular Hemoglobin Concent 31 g/dL (31-37) Red Cell Distribution Width 14.7 % (11.5-14.5) Platelet Count 427 x10^3/uL (140-400) Neutrophils (%) (Auto) 55 % (31-73) Lymphocytes (%) (Auto) 36 % (24-48) Monocytes (%) (Auto) 8 % (0-9) Eosinophils (%) (Auto) 2 % (0-3) Basophils (%) (Auto) 0 % (0-3) Neutrophils # (Auto) 11.6 x10^3uL (1.8-7.7) Lymphocytes # (Auto) 7.6 x10^3/uL (1.0-4.8) Monocytes # (Auto) 1.6 x10^3/uL (0.0-1.1) Eosinophils # (Auto) 0.3 x10^3/uL (0.0-0.7) Basophils # (Auto) 0.0 x10^3/uL (0.0-0.2) Sodium Level 146 mmol/L (136-145) Potassium Level 5.6 mmol/L (3.5-5.1) Chloride Level 106 mmol/L (98-107) Carbon Dioxide Level 26 mmol/L (21-32) Anion Gap 14 (6-14) Blood Urea Nitrogen 21 mg/dL (7-20) Creatinine 1.1 mg/dL (0.6-1.0) Estimated GFR (Cockcroft-Gault) 57.0 Glucose Level 161 mg/dL (70-99) Calcium Level 9.7 mg/dL (8.5-10.1) Glucose (Fingerstick) 157 mg/dL (70-99) O2 Saturation 91 % (92-99) Arterial Blood pH 7.35 (7.35-7.45) Arterial Blood pCO2 at Patient Temp 35 mmHg (35-46) Arterial Blood pO2 at Patient Temp 65 mmHg (65-108) Arterial Blood HCO3 19 mmol/L (21-28) Arterial Blood Base Excess -6 mmol/L (-3-3) FiO2 40 CXR, 03/03 1. Tip of the endotracheal tube is at the orifice of the right mainstem bronchus for which retraction advised. 2. There is increased perihilar opacity and at the right lung base which may be due to infiltrates or and/or edema. Micro Objective Assessment s/p code blue, PEA Leukocytosis, likely reactive adn s/p solumedrol 03/01 Hypotension, back on vasopressor support E. coli UTI, POA, 02/22 on Zosyn Lactic acidosis, better Pulmonary effusions Acute diastolic heart failure NSTEMI Sulfa allergy Diabetes Plan Plan of Care Continue Zosyn Probiotics PICC maintenance care Monitor labs/VS Supportive care D/w daughter D/w nursing D/w Dr. Kaur likely cardiac origin Attending Co-Sign Attending Co-Sign The patient was seen and interviewed as well as examined at the bedside. The chart was reviewed. The case was discussed. Agree with the plan of care. LIANE GRIER APRN March 03, 2019 09:59 SERGO ETIENNE MD March 03, 2019 12:41
--- NOTE | 2019-03-03 11:01 | NUR ---
SS following up with discharge planning. SS discussed with Dr. Voss. SS phoned and faxed referral to [facility], ; faxed [phone]. SS will await acceptance decision and will proceed accordingly.
--- NOTE | 2019-03-03 11:29 | PDOC ---
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, Mild TR Mild Colonic ileus History of Present Illness History of Present Illness Patient seen and examined She is now intubated and in the intensive care unit Daughter is present I discussed with her in the nurse Vent settings as follows assist-control/16/500/50% with 5 of PEEP and she is satting in the mid 90s Reviewed the code with the nurse The patient became very anxious and then went into the PEA She was coded for 9 minutes including compressions and intubation Vitals Vitals Vital Signs Date Time Temp Pulse Resp B/P (MAP) Pulse Ox O2 Delivery O2 Flow Rate FiO2 03/03/19 11:03 74 16 104/54 (71) 100 Ventilator 03/03/19 07:00 98.2 98.2 03/03/19 03:00 2.0 Physical Exam Physical Exam GENERAL: Sedated and orally intubated HEENT: Pupils equally round, small. Normal conjunctivae. OGT, ETT NECK: Supple. LUNGS: + rhonchi HEART: S1 and S2. ABDOMEN: Soft : Leach in place EXTREMITIES: No gross edema or cyanosis. SKIN: Warm without generalized rash. NEUROLOGIC: Sedated/unresponsive RUE-PICC (02/25) without signs of any complications. General: Alert, Oriented X3, No acute distress, Other (improved appearance) Heart: Other (soft S1-S2 intermittent tachycardia) Lungs: Crackles, Other (DECREASE BS IN BASES) Abdomen: Normal bowel sounds Extremities: No clubbing, No cyanosis, No edema, Other (Decreased peripheral pulses in RUE, LUE and LLE, good pulses RLE) Skin: No rashes, No breakdown, No significant lesion Labs LABS Laboratory Tests Test 03/03/19 04:45 03/03/19 05:32 03/03/19 08:00 White Blood Count 21.2 x10^3/uL (4.0-11.0) Red Blood Count 3.66 x10^6/uL (3.50-5.40) Hemoglobin 11.3 g/dL (12.0-15.5) Hematocrit 36.0 % (36.0-47.0) Mean Corpuscular Volume 98 fL (79-100) Mean Corpuscular Hemoglobin 31 pg (25-35) Mean Corpuscular Hemoglobin Concent 31 g/dL (31-37) Red Cell Distribution Width 14.7 % (11.5-14.5) Platelet Count 427 x10^3/uL (140-400) Neutrophils (%) (Auto) 55 % (31-73) Lymphocytes (%) (Auto) 36 % (24-48) Monocytes (%) (Auto) 8 % (0-9) Eosinophils (%) (Auto) 2 % (0-3) Basophils (%) (Auto) 0 % (0-3) Neutrophils # (Auto) 11.6 x10^3uL (1.8-7.7) Lymphocytes # (Auto) 7.6 x10^3/uL (1.0-4.8) Monocytes # (Auto) 1.6 x10^3/uL (0.0-1.1) Eosinophils # (Auto) 0.3 x10^3/uL (0.0-0.7) Basophils # (Auto) 0.0 x10^3/uL (0.0-0.2) Sodium Level 146 mmol/L (136-145) Potassium Level 5.6 mmol/L (3.5-5.1) Chloride Level 106 mmol/L (98-107) Carbon Dioxide Level 26 mmol/L (21-32) Anion Gap 14 (6-14) Blood Urea Nitrogen 21 mg/dL (7-20) Creatinine 1.1 mg/dL (0.6-1.0) Estimated GFR (Cockcroft-Gault) 57.0 Glucose Level 161 mg/dL (70-99) Calcium Level 9.7 mg/dL (8.5-10.1) Glucose (Fingerstick) 157 mg/dL (70-99) O2 Saturation 91 % (92-99) Arterial Blood pH 7.35 (7.35-7.45) Arterial Blood pCO2 at Patient Temp 35 mmHg (35-46) Arterial Blood pO2 at Patient Temp 65 mmHg (65-108) Arterial Blood HCO3 19 mmol/L (21-28) Arterial Blood Base Excess -6 mmol/L (-3-3) FiO2 40 Review of Systems Review of Systems Unable to obtain patient is intubated Assessment and Plan Assessmemt and Plan Problems Medical Problems: (1) Septic shock Status: Acute Status post CODE BLUE this morning now intubated him back in ICU Recent sepsis with resolving hypotension Sudden dyspnea: mild CHF NSTEMI: PAD Hx of HTN Valvular insufficiency: Mild AI, 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 Labs Laboratory Tests Test 03/02/19 05:50 03/03/19 04:45 03/03/19 05:32 03/03/19 08:00 White Blood Count 11.6 x10^3/uL (4.0-11.0) 21.2 x10^3/uL (4.0-11.0) Red Blood Count 2.95 x10^6/uL (3.50-5.40) 3.66 x10^6/uL (3.50-5.40) Hemoglobin 9.3 g/dL (12.0-15.5) 11.3 g/dL (12.0-15.5) Hematocrit 28.3 % (36.0-47.0) 36.0 % (36.0-47.0) Mean Corpuscular Volume 96 fL (79-100) 98 fL (79-100) Mean Corpuscular Hemoglobin 32 pg (25-35) 31 pg (25-35) Mean Corpuscular Hemoglobin Concent 33 g/dL (31-37) 31 g/dL (31-37) Red Cell Distribution Width 13.9 % (11.5-14.5) 14.7 % (11.5-14.5) Platelet Count 311 x10^3/uL (140-400) 427 x10^3/uL (140-400) Neutrophils (%) (Auto) 79 % (31-73) 55 % (31-73) Lymphocytes (%) (Auto) 13 % (24-48) 36 % (24-48) Monocytes (%) (Auto) 7 % (0-9) 8 % (0-9) Eosinophils (%) (Auto) 0 % (0-3) 2 % (0-3) Basophils (%) (Auto) 1 % (0-3) 0 % (0-3) Neutrophils # (Auto) 9.2 x10^3uL (1.8-7.7) 11.6 x10^3uL (1.8-7.7) Lymphocytes # (Auto) 1.5 x10^3/uL (1.0-4.8) 7.6 x10^3/uL (1.0-4.8) Monocytes # (Auto) 0.8 x10^3/uL (0.0-1.1) 1.6 x10^3/uL (0.0-1.1) Eosinophils # (Auto) 0.0 x10^3/uL (0.0-0.7) 0.3 x10^3/uL (0.0-0.7) Basophils # (Auto) 0.1 x10^3/uL (0.0-0.2) 0.0 x10^3/uL (0.0-0.2) Sodium Level 143 mmol/L (136-145) 146 mmol/L (136-145) Potassium Level 4.8 mmol/L (3.5-5.1) 5.6 mmol/L (3.5-5.1) Chloride Level 106 mmol/L (98-107) 106 mmol/L (98-107) Carbon Dioxide Level 29 mmol/L (21-32) 26 mmol/L (21-32) Anion Gap 8 (6-14) 14 (6-14) Blood Urea Nitrogen 16 mg/dL (7-20) 21 mg/dL (7-20) Creatinine 0.9 mg/dL (0.6-1.0) 1.1 mg/dL (0.6-1.0) Estimated GFR (Cockcroft-Gault) 71.8 57.0 Glucose Level 127 mg/dL (70-99) 161 mg/dL (70-99) Calcium Level 8.9 mg/dL (8.5-10.1) 9.7 mg/dL (8.5-10.1) Glucose (Fingerstick) 157 mg/dL (70-99) O2 Saturation 91 % (92-99) Arterial Blood pH 7.35 (7.35-7.45) Arterial Blood pCO2 at Patient Temp 35 mmHg (35-46) Arterial Blood pO2 at Patient Temp 65 mmHg (65-108) Arterial Blood HCO3 19 mmol/L (21-28) Arterial Blood Base Excess -6 mmol/L (-3-3) FiO2 40 Laboratory Tests Test 03/03/19 04:45 03/03/19 05:32 03/03/19 08:00 White Blood Count 21.2 x10^3/uL (4.0-11.0) Red Blood Count 3.66 x10^6/uL (3.50-5.40) Hemoglobin 11.3 g/dL (12.0-15.5) Hematocrit 36.0 % (36.0-47.0) Mean Corpuscular Volume 98 fL (79-100) Mean Corpuscular Hemoglobin 31 pg (25-35) Mean Corpuscular Hemoglobin Concent 31 g/dL (31-37) Red Cell Distribution Width 14.7 % (11.5-14.5) Platelet Count 427 x10^3/uL (140-400) Neutrophils (%) (Auto) 55 % (31-73) Lymphocytes (%) (Auto) 36 % (24-48) Monocytes (%) (Auto) 8 % (0-9) Eosinophils (%) (Auto) 2 % (0-3) Basophils (%) (Auto) 0 % (0-3) Neutrophils # (Auto) 11.6 x10^3uL (1.8-7.7) Lymphocytes # (Auto) 7.6 x10^3/uL (1.0-4.8) Monocytes # (Auto) 1.6 x10^3/uL (0.0-1.1) Eosinophils # (Auto) 0.3 x10^3/uL (0.0-0.7) Basophils # (Auto) 0.0 x10^3/uL (0.0-0.2) Sodium Level 146 mmol/L (136-145) Potassium Level 5.6 mmol/L (3.5-5.1) Chloride Level 106 mmol/L (98-107) Carbon Dioxide Level 26 mmol/L (21-32) Anion Gap 14 (6-14) Blood Urea Nitrogen 21 mg/dL (7-20) Creatinine 1.1 mg/dL (0.6-1.0) Estimated GFR (Cockcroft-Gault) 57.0 Glucose Level 161 mg/dL (70-99) Calcium Level 9.7 mg/dL (8.5-10.1) Glucose (Fingerstick) 157 mg/dL (70-99) O2 Saturation 91 % (92-99) Arterial Blood pH 7.35 (7.35-7.45) Arterial Blood pCO2 at Patient Temp 35 mmHg (35-46) Arterial Blood pO2 at Patient Temp 65 mmHg (65-108) Arterial Blood HCO3 19 mmol/L (21-28) Arterial Blood Base Excess -6 mmol/L (-3-3) FiO2 40 Microbiology 02/22/19 Blood Culture - Final, Complete NO GROWTH AFTER 5 DAYS 02/22/19 Urine Culture - Final, Complete 02/22/19 Urine Culture Result 1 (JIN) - Final, Complete 02/22/19 Antimicrobic Susceptibility - Final, Complete Medications Current Medications Sodium Chloride 1,000 ml @ 1,000 mls/hr 1X ONCE IV Last administered on 02/22at 21:23; Start 02/22/19 at 20:45; Stop 02/22/19 at 21:44; Status DC Acetaminophen (Tylenol) 650 mg 1X ONCE PO Last administered on 02/22/19at 21:22; Start 02/22/19 at 20:45; Stop 02/22/19 at 20:52; Status DC Piperacillin Sod/ Tazobactam Sod (Zosyn Per Pharmacy) 1 each PRN DAILY PRN MC SEE COMMENTS; Start 02/22/19 at 20:45; Stop 02/23/19 at 14:53; Status DC Piperacillin Sod/ Tazobactam Sod 3.375 gm/Sodium Chloride 50 ml @ 100 mls/hr ONCE ONCE IV Last administered on 02/22/19at 21:23; Start 02/22/19 at 21:00; Stop 02/22/19 at 21:29; Status DC Sodium Chloride 1,000 ml @ 1,000 mls/hr 1X ONCE IV Last administered on 02/22/19at 23:44; Start 02/22/19 at 23:30; Stop 02/23/19 at 00:29; Status DC Sodium Chloride 1,000 ml @ 75 mls/hr [id number] IV Last administered on 02/23/19at 07:38; Start 02/22/19 at 23:30; Stop 02/23/19 at 08:17; Status DC Iohexol (Omnipaque 300 Mg/ml) 60 ml 1X ONCE IV Last administered on 02/23/19at 00:02; Start 02/23/19 at 00:15; Stop 02/23/19 at 00:16; Status DC Info (CONTRAST GIVEN -- Rx MONITORING) 1 each PRN DAILY PRN MC SEE COMMENTS; Start 02/23/19 at 00:15; Stop 02/25/19 at 00:14; Status DC Piperacillin Sod/ Tazobactam Sod 2.25 gm/Sodium Chloride 50 ml @ 100 mls/hr Q6HRS IV Last administered on 02/23/19at 12:26; Start 02/23/19 at 06:00; Stop 02/23 at 14:34; Status DC Sodium Chloride 1,000 ml @ 1,000 mls/hr 1X ONCE IV ; Start 02/23/19 at 01:00; Stop 02/23/19 at 01:45; Status DC Sodium Chloride 500 ml @ 500 mls/hr 1X ONCE IV Last administered on 02/23/19at 02:07; Start 02/23/19 at 02:00; Stop 02/23/19 at 02:59; Status DC Norepinephrine Bitartrate 250 ml @ 0 mls/hr 1X ONCE IV ; Start 02/23/19 at 02:00; Stop 02/23/19 at 02:01; Status DC Sodium Chloride 500 ml @ 500 mls/hr 1X ONCE IV Last administered on 02/23/19at 06:10; Start 02/23/19 at 02:00; Stop 02/23/19 at 02:59; Status DC Norepinephrine Bitartrate 250 ml @ 1.875 mls/ hr CONT PRN IV SEE I/O RECORD Last administered on 02/26/19at 09:00; Start 02/23/19 at 03:15; Stop 02/27/19 at 14:17; Status DC Ondansetron HCl (Zofran) 4 mg PRN Q6HRS PRN IV NAUSEA/VOMITING Last administered on 02/24/19at 23:21; Start 02/23/19 at 03:15 Iohexol (Omnipaque 300 Mg/ml) 100 ml [facility] ONCE .ROUTE ; Start 02/23/19 at 04:24; Stop 02/23/19 at 04:25; Status DC Sodium Chloride 500 ml @ 500 mls/hr 1X ONCE IV Last administered on 02/23/19at 08:28; Start 02/23/19 at 07:45; Stop 02/23/19 at 08:44; Status DC Acetaminophen (Tylenol) 650 mg PRN Q6HRS PRN PO MILD PAIN / TEMP Last administered on 03/02/19 04:32; Start 02/23/19 at 08:15 Ringer's Solution 1,000 ml @ 100 mls/hr Q10H IV Last administered on 02/27/19 23:15; Start 02/23/19 at 08:30; Stop 02/28/19 at 11:55; Status DC Ringer's Solution 500 ml @ 500 mls/hr 1X ONCE IV Last administered on 02/23/19 09:23; Start 02/23/19 at 09:15; Stop 02/23/19 at 10:14; Status DC Dopamine HCl/ Dextrose 250 ml @ 5.749 mls/ hr CONT PRN IV SEE I/O RECORD Last administered on 02/25/19at 05:11; Start 02/23/19 at 12:15 Tramadol HCl (Ultram) 50 mg PRN Q6HRS PRN PO MODERATE-SEVERE PAIN Last administered on 03/02/19 21:59; Start 02/23/19 at 12:30 Heparin Sodium (Porcine) (Heparin Sodium) 4,000 unit 1X ONCE IV Last administered on 02/23/19at 13:30; Start 02/23/19 at 13:00; Stop 02/23/19 at 13:01; Status DC Heparin Sodium/ Dextrose 500 ml @ 0 mls/hr CONT PRN IV SEE I/O RECORD Last administered on 02/25/19 05:12; Start 02/23/19 at 13:00; Stop 02/26/19 at 13:01; Status DC Heparin Sodium (Porcine) (Heparin Sodium) 1,900 unit PRN Q6HRS PRN IV FOR UFH LEVEL LESS THAN 0.2 Last administered on 02/25/19at 09:35; Start 02/23/19 at 13:00; Stop 02/26/19 at 13:01; Status DC Polyethylene Glycol (miraLAX PACKET) 17 gm PRN BID PRN PO CONSTIPATION Last administered on 02/23/19 14:38; Start 02/23/19 at 13:15; Stop 02/23/19 at 14:59; Status DC Info (Anti-Coagulation Monitoring By Pharmacy) 1 each PRN DAILY PRN MC SEE COMMENTS Last administered on 02/26/19at 08:00; Start 02/23/19 at 13:30; Stop 02/26/19 at 13:50; Status DC Temazepam (Restoril) 15 mg PRN QHS PRN PO INSOMNIA Last administered on 03/02/19 21:58; Start 02/23/19 at 14:45 Piperacillin Sod/ Tazobactam Sod 2.25 gm/Sodium Chloride 50 ml @ 100 mls/hr Q6HRS IV ; Start 02/23/19 at 18:00; Stop 02/23/19 at 18:00; Status DC Polyethylene Glycol (miraLAX PACKET) 17 gm BID PO Last administered on 03/03/19 09:13; Start 02/23/19 at 21:00 Multi-Ingredient Ointment (Analgesic Lititz) 1 mara PRN QID PRN TP MUSCLE PAIN Last administered on 02/27/19 09:18; Start 02/23/19 at 18:00 Pantoprazole Sodium (Protonix) 40 mg DAILYAC PO Last administered on 03/03/19 09:13; Start 02/24/19 at 17:30 Aspirin (Ecotrin) 325 mg 1X ONCE PO Last administered on 02/25/19 09:31; Start 02/25/19 at 09:15; Stop 02/25/19 at 09:16; Status DC Aspirin (Ecotrin) 81 mg DAILYWBKFT PO Last administered on 03/03/19 09:13; Start 02/26/19 at 08:00 Potassium Chloride (Klor-Con) 40 meq 1X ONCE PO Last administered on 02/25/19 09:32; Start 02/25/19 at 09:15; Stop 02/25/19 at 09:16; Status DC Magnesium Sulfate/ Dextrose 100 ml @ 25 mls/hr 1X ONCE IV Last administered on 02/25/19 11:49; Start 02/25/19 at 11:30; Stop 02/25/19 at 15:29; Status DC Piperacillin Sod/ Tazobactam Sod (Zosyn Per Pharmacy) 1 each PRN DAILY PRN MC SEE COMMENTS; Start 02/25/19 at 16:45 Piperacillin Sod/ Tazobactam Sod 2.25 gm/Sodium Chloride 50 ml @ 100 mls/hr Q6HRS IV Last administered on 03/03/19at 11:15; Start 02/25/19 at 18:00 Bisacodyl (Dulcolax Tab) 10 mg 1X ONCE PO Last administered on 02/26/19at 10:00; Start 02/26/19 at 10:00; Stop 02/26/19 at 10:01; Status DC Methylprednisolone Acetate (DEPO-Medrol 40MG VIAL) 40 mg 1X ONCE IM ; Start 02/26/19 at 12:15; Stop 02/26/19 at 12:20; Status DC Bupivacaine HCl (Sensorcaine-Mpf 0.25%) 10 ml 1X ONCE IJ ; Start 02/26/19 at 12:15; Stop 02/26/19 at 12:20; Status DC Methylprednisolone Acetate (DEPO-Medrol 40MG VIAL) 40 mg 1X ONCE IM ; Start 02/27/19 at 08:00; Stop 02/27/19 at 08:01; Status DC Bupivacaine HCl (Sensorcaine-Mpf 0.25%) 10 ml 1X ONCE IJ ; Start 02/27/19 at 08:00; Stop 02/27/19 at 08:01; Status DC Lactobacillus Rhamnosus (Culturelle) 1 cap BID PO Last administered on 03/03/19at 09:13; Start 02/26/19 at 21:00 Diclofenac Sodium (Voltaren) 1 mara BID TP Last administered on 03/03/19at 09:13; Start 02/26/19 at 21:00 Artificial Tears (Artificial Tears) 1 drop PRN Q2HR PRN OU DRY EYE Last administered on 03/01/19at 21:00; Start 02/26/19 at 19:15 Ketotifen Fumarate (Zaditor) 1 drop 1X ONCE OU Last administered on 02/27/19at 12:21; Start 02/27/19 at 09:30; Stop 02/27/19 at 09:31; Status DC Atorvastatin Calcium (Lipitor) 20 mg QHS PO Last administered on 03/02/19at 21:59; Start 02/27/19 at 21:00 Sodium Chloride 500 ml @ 500 mls/hr 1X ONCE IV Last administered on 02/28/19at 09:30; Start 02/28/19 at 09:30; Stop 02/28/19 at 10:29; Status DC Alteplase, Recombinant (Cathflo For Central Catheter Clearance) 1 mg 1X ONCE INT CAT ; Start 02/28/19 at 10:15; Stop 02/28/19 at 10:16; Status DC Sodium Chloride 1,000 ml @ 100 mls/hr Q10H IV Last administered on 02/28/19at 12:05; Start 02/28/19 at 12:00; Stop 02/28/19 at 16:41; Status DC Iohexol (Omnipaque 350 Mg/ml) 90 ml 1X ONCE IV Last administered on 02/28/19at 14:25; Start 02/28/19 at 12:30; Stop 02/28/19 at 12:31; Status DC Albuterol Sulfate (Ventolin Neb Soln) 2.5 mg PRN Q4HRS PRN NEB SHORTNESS OF BREATH Last administered on 03/02/19at 20:06; Start 02/28/19 at 13:30 Furosemide (Lasix) 20 mg 1X ONCE IVP Last administered on 02/28/19at 15:54; Start 02/28/19 at 15:30; Stop 02/28/19 at 15:32; Status DC Bupivacaine HCl (Sensorcaine-Mpf 0.25%) 10 ml STK-MED ONCE .ROUTE ; Start 03/01/19 at 11:00; Stop 03/02/19 at 13:29; Status DC Methylprednisolone Acetate (DEPO-Medrol 40MG VIAL) 40 mg STK-MED ONCE .ROUTE ; Start 03/01/19 at 11:00; Stop 03/02/19 at 13:29; Status DC Metoprolol Tartrate (Lopressor Vial) 5 mg 1X ONCE IVP Last administered on 03/02/19at 18:44; Start 03/02/19 at 18:45; Stop 03/02/19 at 18:46; Status DC Norepinephrine Bitartrate 250 ml @ 1.875 mls/ hr CONT PRN IV SEE I/O RECORD Last administered on 03/03/19at 07:02; Start 03/03/19 at 05:45 Etomidate (Amidate) 20 mg STK-MED ONCE IV ; Start 03/03/19 at 05:44; Stop 03/03/19 at 05:45; Status DC Succinylcholine Chloride (Anectine) 200 mg STK-MED ONCE .ROUTE ; Start 03/03/19 at 05:45; Stop 03/03/19 at 05:46; Status DC Propofol 100 ml @ As Directed STK-MED ONCE IV ; Start 03/03/19 at 06:16; Stop 03/03/19 at 06:17; Status DC Propofol 100 ml @ 1.313 mls/ hr CONT PRN IV SEE I/O RECORD Last administered on 03/03/19at 11:16; Start 03/03/19 at 06:30 Midazolam HCl 100 ml @ 5 mls/hr CONT PRN IV SEE I/O RECORD; Start 03/03/19 at 07:00 Chlorhexidine Gluconate (Peridex) 15 ml BID MM Last administered on 03/03/19at 09:14; Start 03/03/19 at 09:00 Artificial Tears (Artificial Tears) 1 drop PRN Q1HR PRN OU DRY EYE; Start 03/03/19 at 07:00; Status UNV Ketotifen Fumarate (Zaditor) 1 drop DAILY PRN OU ITCHING; Start 03/03/19 at 10:45 Active Scripts Active Reported Amlodipine Besylate 10 Mg Tablet 10 Mg PO DAILY Tramadol Hcl 50 Mg Tablet 50 Mg PO Q4H PRN Fish Oil 1,000 Mg Capsule (Woodward-3 Fatty Acids/Fish Oil) 1 Each Capsule 1 Each PO Vitamin D3 (Cholecalciferol (Vitamin D3)) 5,000 Unit Capsule 5,000 Unit PO Acetaminophen 500 Mg Tablet 500 Mg PO Aspir 81 (Aspirin) 81 Mg Tablet.dr 81 Mg PO Hydrochlorothiazide Tablet (Hydrochlorothiazide) 25 Mg Tablet 25 Mg PO DAILY Pravastatin Sodium 40 Mg Tablet 40 Mg PO DAILY Miralax (Polyethylene Glycol 3350) 17 Gm Powd.pack 1 Pkt PO DAILY [fiber] Temazepam 30 Mg Capsule 30 Mg PO HS PRN Cozaar (Losartan Potassium) 100 Mg Tablet 100 Mg PO DAILY Vitals/I & O Vital Sign - Last 24 Hours 03/02/19 03/02/19 03/02/19 03/02/19 12:12 14:43 16:47 18:44 Temp 97.5 97.5 Pulse 79 109 Resp 18 B/P (MAP) 133/68 (89) 137/66 Pulse Ox 91 O2 Delivery Nasal Cannula Room Air Nasal Cannula O2 Flow Rate 2.0 2.0 03/02/19 03/02/19 03/02/19 03/02/19 19:00 20:00 20:07 21:59 Temp 97.7 97.7 Pulse 65 Resp 18 20 B/P (MAP) 98/60 (73) Pulse Ox 94 98 98 O2 Delivery Nasal Cannula Nasal Cannula Nasal Cannula Nasal Cannula O2 Flow Rate 2.0 2.0 2.0 2.0 03/02/19 03/02/19 03/03/19 03/03/19 23:00 23:00 03:00 05:40 Temp 97.5 97.4 98.1 97.5 97.4 98.1 Pulse 92 79 94 Resp 20 18 18 16 B/P (MAP) 102/60 (74) 116/63 (80) 136/83 (100) Pulse Ox 94 94 95 100 O2 Delivery Nasal Cannula Nasal Cannula Nasal Cannula Ventilator O2 Flow Rate 2.0 2.0 2.0 03/03/19 03/03/19 03/03/19 03/03/19 05:45 05:59 06:00 07:00 Temp 98.2 98.2 Pulse 69 78 Resp 16 16 B/P (MAP) 140/83 (102) 127/55 (79) Pulse Ox 100 100 O2 Delivery Mechanical Ventilator Ventilator Ventilator Ventilator 03/03/19 03/03/19 03/03/19 03/03/19 07:37 08:00 08:15 09:00 Pulse 70 71 Resp 16 16 B/P (MAP) 101/60 (74) 94/54 (67) Pulse Ox 40 97 O2 Delivery Mechanical Ventilator Ventilator Ventilator Ventilator 03/03/19 03/03/19 03/03/19 10:00 10:00 11:03 Pulse 70 74 Resp 16 16 B/P (MAP) 90/48 (62) 104/54 (71) Pulse Ox 100 100 O2 Delivery Ventilator Ventilator Ventilator Intake and Output 03/02/19 03/02/19 03/03/19 15:00 23:00 07:00 Intake Total 360 ml 180 ml 100 ml Output Total 150 ml Balance 210 ml 180 ml 100 ml JUNG AYALA III DO March 03, 2019 11:29
[2019-03-03] MEDS: ALBUTEROL SULFATE 2.5 MG/3 ML NEBU. NEB PRN ×2 (12:15→19:36)
--- NOTE | 2019-03-03 13:30 | PDOC ---
[facility] 03/03/19 1330: CARDIO Progress Notes Date and Time Date of Service 03/03/19 Time of Evaluation 1250 Subjective Subjective: Other (intubated) Vitals Vitals Vital Signs Date Time Temp Pulse Resp B/P (MAP) Pulse Ox O2 Delivery O2 Flow Rate FiO2 03/03/19 12:15 Ventilator 03/03/19 12:00 98.3 74 16 109/47 (67) 100 98.3 03/03/19 03:00 2.0 Weight Weight [ ] Input and Output Intake and Output Intake and Output 03/03/19 06:59 Intake Total 590 ml Output Total 150 ml Balance 440 ml Intake Oral 540 ml IV Total 50 ml Output Urine Total 150 ml # Voids 3 # Bowel Movements 1 Laboratory Labs Laboratory Tests Test 03/03/19 04:45 03/03/19 05:32 03/03/19 08:00 White Blood Count 21.2 x10^3/uL (4.0-11.0) Red Blood Count 3.66 x10^6/uL (3.50-5.40) Hemoglobin 11.3 g/dL (12.0-15.5) Hematocrit 36.0 % (36.0-47.0) Mean Corpuscular Volume 98 fL (79-100) Mean Corpuscular Hemoglobin 31 pg (25-35) Mean Corpuscular Hemoglobin Concent 31 g/dL (31-37) Red Cell Distribution Width 14.7 % (11.5-14.5) Platelet Count 427 x10^3/uL (140-400) Neutrophils (%) (Auto) 55 % (31-73) Lymphocytes (%) (Auto) 36 % (24-48) Monocytes (%) (Auto) 8 % (0-9) Eosinophils (%) (Auto) 2 % (0-3) Basophils (%) (Auto) 0 % (0-3) Neutrophils # (Auto) 11.6 x10^3uL (1.8-7.7) Lymphocytes # (Auto) 7.6 x10^3/uL (1.0-4.8) Monocytes # (Auto) 1.6 x10^3/uL (0.0-1.1) Eosinophils # (Auto) 0.3 x10^3/uL (0.0-0.7) Basophils # (Auto) 0.0 x10^3/uL (0.0-0.2) Sodium Level 146 mmol/L (136-145) Potassium Level 5.6 mmol/L (3.5-5.1) Chloride Level 106 mmol/L (98-107) Carbon Dioxide Level 26 mmol/L (21-32) Anion Gap 14 (6-14) Blood Urea Nitrogen 21 mg/dL (7-20) Creatinine 1.1 mg/dL (0.6-1.0) Estimated GFR (Cockcroft-Gault) 57.0 Glucose Level 161 mg/dL (70-99) Calcium Level 9.7 mg/dL (8.5-10.1) Glucose (Fingerstick) 157 mg/dL (70-99) O2 Saturation 91 % (92-99) Arterial Blood pH 7.35 (7.35-7.45) Arterial Blood pCO2 at Patient Temp 35 mmHg (35-46) Arterial Blood pO2 at Patient Temp 65 mmHg (65-108) Arterial Blood HCO3 19 mmol/L (21-28) Arterial Blood Base Excess -6 mmol/L (-3-3) FiO2 40 Microbiology Micro Microbiology 02/22/19 Blood Culture - Final, Complete NO GROWTH AFTER 5 DAYS 02/22/19 Urine Culture - Final, Complete 02/22/19 Urine Culture Result 1 (JIN) - Final, Complete 02/22/19 Antimicrobic Susceptibility - Final, Complete Physical Exam HEENT: Neck Supple W Full Motion Chest: Symmetric LUNGS: Other (mechanical vent) Heart: S1S2, RRR (SR ), other (distant heart tones) Abdomen: Other (soft) Extremities: Other (trace LE edema) Neurology: other (sedated, opens eyes) Assessment Assessment 1. PEA arrest; s/p intubation 2. NSTEMI: Trop 12. EF and WM nml. 3. Leukocytosis, sepsis. pressor support 4. Acute diastolic HF 5. SEBAS 6. Hyperkalemia Recommendations ASA, statin no BB, ACEi with hypotension, SEBAS Will plan for cardiac cath Supportive care SEGUNDO BRAXTON MD 03/03/19 [id number]: CARDIO Progress Notes Plan Plan Pt seen and examined. Agree with above Repatcher note. Discussed with family. 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 She underwent complex PCI of the LM ad hoc. She did well. This should help improve overall prognosis. Supportive care. See full cath report for details. Continue asa, ticagrelor. please note she is a vasculopath and there is a 40 mm Hg difference btw cuff pressure and her true aortic pressure. Would add 40 pts to left arm cuff pressure. Discussed with nurse. Wean off levophed. ODIN RENEE APRN March 03, 2019 13:30 SEGUNDO BRAXTON MD March 03, 2019 23:01
[2019-03-03] MEDS: KETOTIFEN FUMARATE 0.025% OPHTH SOLUTION BOTTLE. OU PRN (14:05)
[2019-03-03] MEDS ORDERED: LIDOCAINE 1% PF 2 ML VIAL. ONE (15:19)
[2019-03-03] MEDS ORDERED: IODIXANOL 320 MG/ML 100 ML VIAL. ONE ×2 (15:19→16:49)
--- NOTE | 2019-03-03 15:40 | NUR ---
pt daughter radha notified of pt going for cardiac cath this afternoon. consents were signed ealier by daughter. pt to labourers per bed.
[2019-03-03] MEDS ORDERED: HEPARIN for IV BOLUS 10,000 UNIT/10 ML VIAL. ONE (15:46)
[2019-03-03] MEDS ORDERED: VERAPAMIL 5 MG/2 ML VIAL. ONE (15:46)
[2019-03-03] MEDS ORDERED: NITROGLYCERIN 200 MCG/2 ML SYRINGE FOR CATH/VASC LAB. ONE ×2 (15:47→16:11)
[2019-03-03] MEDS ORDERED: LIDOCAINE 1% Multi-Dose 20 ML VIAL. ONE (15:56)
[2019-03-03] MEDS ORDERED: HEPARIN for IV BOLUS 10,000 UNIT/10 ML VIAL. IV ONE (17:00)
[2019-03-03] MEDS ORDERED: IODIXANOL 320 MG/ML 100 ML VIAL. IART ONE (17:00)
[2019-03-03] MEDS ORDERED: LIDOCAINE 1% Multi-Dose 20 ML VIAL. INJ ONE (17:00)
[2019-03-03] MEDS ORDERED: TICAGRELOR 90 MG TABLET. ONE (17:02)
[2019-03-03] MEDS ORDERED: TICAGRELOR 90 MG TABLET. GT ONE (17:15)
--- NOTE | 2019-03-03 18:15 | NUR ---
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 arterial line in right groin intact. see vascular assessment. pt sedated on propofol and levophed being used to support use of propofol. pt resting quietly. tube feeding infusing via og tube in stomach.
[2019-03-03] MEDS: ATORVASTATIN CALCIUM 20 MG TABLET PO SCH (21:26)
[2019-03-03] MEDS: HEPARIN for SUB-Q USE 5,000 UNIT/ML VIAL. SQ SCH (21:28)
[2019-03-04] VITALS (38 sets, daily range): BP systolic 69–142; BP diastolic 20–70
[2019-03-04] MEDS: PROPOFOL 100 ML IV PRN ×3 (00:46→10:43)
[2019-03-04] MEDS: HEPARIN for SUB-Q USE 5,000 UNIT/ML VIAL. SQ SCH (05:30)
[2019-03-04] MEDS: PIPERACILLIN/TAZOBACTAM 2.25 GM in IV NORMAL SALINE 50ML 50 ML IV SCH ×3 (05:30→17:00)
[2019-03-04 06:07] LABS: CALCIUM 8.1 mg/dL (8.5-10.1); CREATININE 1.4 mg/dL (0.6-1.0); GFR 43.1; POTASSIUM 3.4 mmol/L (3.5-5.1)
[2019-03-04 06:30] LABS: BASO # 0.1 x10^3/uL (0.0-0.2); BASO % 1 % (0-3); EOS # 0.2 x10^3/uL (0.0-0.7); EOS % 2 % (0-3); HEMATOCRIT 24.7 % (36.0-47.0); HEMOGLOBIN 8.2 g/dL (12.0-15.5); LYMPH # 1.6 x10^3/uL (1.0-4.8); LYMPH % 15 % (24-48); MEAN CORPUSCULAR HEMOGLOBIN 32 pg (25-35); MEAN CORPUSCULAR HGB CONC 33 g/dL (31-37); MEAN CORPUSCULAR VOLUME 96 fL (79-100); MONO # 0.7 x10^3/uL (0.0-1.1); MONO % 7 % (0-9); NEUT # 8.1 x10^3uL (1.8-7.7); NEUT % 76 % (31-73); PLATELET COUNT 313 x10^3/uL (140-400); RED BLOOD COUNT 2.58 x10^6/uL (3.50-5.40); RED CELL DISTRIBUTION WIDTH 14.1 % (11.5-14.5); WHITE BLOOD COUNT 10.7 x10^3/uL (4.0-11.0)
--- NOTE | 2019-03-04 07:13 | PDOC ---
Infectious Disease Note Subjective Subjective s/p cold blue/CPR, PEA Now in ICU Sedated and intubated No fevers last 24 hours ROS ROS unable to obtain Vital Sign Vital Signs Vital Signs Date Time Temp Pulse Resp B/P (MAP) Pulse Ox O2 Delivery O2 Flow Rate FiO2 03/04/19 06:00 72 16 99/31 (53) 100 Ventilator 03/04/19 04:00 98.4 98.4 Physical Exam PHYSICAL EXAM GENERAL: Sedated and orally intubated - opened eyes HEENT: Pupils equally round, small. Normal conjunctivae. OGT, ETT NECK: Supple. LUNGS: + rhonchi HEART: S1 and S2. ABDOMEN: Soft : Leach in place EXTREMITIES: No gross edema or cyanosis. SKIN: Warm without generalized rash. NEUROLOGIC: Sedated/unresponsive aside from opening eyes RUE-PICC (02/25) without signs of any complications. Right groin line is clean Labs Lab Laboratory Tests Test 03/03/19 08:00 03/03/19 17:04 03/04/19 05:40 O2 Saturation 91 % (92-99) Arterial Blood pH 7.35 (7.35-7.45) Arterial Blood pCO2 at Patient Temp 35 mmHg (35-46) Arterial Blood pO2 at Patient Temp 65 mmHg (65-108) Arterial Blood HCO3 19 mmol/L (21-28) Arterial Blood Base Excess -6 mmol/L (-3-3) FiO2 40 Activated Clotting Time 213 sec (92-181) White Blood Count 10.7 x10^3/uL (4.0-11.0) Red Blood Count 2.58 x10^6/uL (3.50-5.40) Hemoglobin 8.2 g/dL (12.0-15.5) Hematocrit 24.7 % (36.0-47.0) Mean Corpuscular Volume 96 fL (79-100) Mean Corpuscular Hemoglobin 32 pg (25-35) Mean Corpuscular Hemoglobin Concent 33 g/dL (31-37) Red Cell Distribution Width 14.1 % (11.5-14.5) Platelet Count 313 x10^3/uL (140-400) Neutrophils (%) (Auto) 76 % (31-73) Lymphocytes (%) (Auto) 15 % (24-48) Monocytes (%) (Auto) 7 % (0-9) Eosinophils (%) (Auto) 2 % (0-3) Basophils (%) (Auto) 1 % (0-3) Neutrophils # (Auto) 8.1 x10^3uL (1.8-7.7) Lymphocytes # (Auto) 1.6 x10^3/uL (1.0-4.8) Monocytes # (Auto) 0.7 x10^3/uL (0.0-1.1) Eosinophils # (Auto) 0.2 x10^3/uL (0.0-0.7) Basophils # (Auto) 0.1 x10^3/uL (0.0-0.2) Sodium Level 144 mmol/L (136-145) Potassium Level 3.4 mmol/L (3.5-5.1) Chloride Level 105 mmol/L (98-107) Carbon Dioxide Level 25 mmol/L (21-32) Anion Gap 14 (6-14) Blood Urea Nitrogen 30 mg/dL (7-20) Creatinine 1.4 mg/dL (0.6-1.0) Estimated GFR (Cockcroft-Gault) 43.1 Glucose Level 128 mg/dL (70-99) Calcium Level 8.1 mg/dL (8.5-10.1) Micro Microbiology 02/22/19 Blood Culture - Final, Complete NO GROWTH AFTER 5 DAYS 02/22/19 Urine Culture - Final, Complete 02/22/19 Urine Culture Result 1 (JIN) - Final, Complete 02/22/19 Antimicrobic Susceptibility - Final, Complete Objective Assessment S/p cardiac cath PCI to open left main 03/03 s/p code blue, PEA Leukocytosis, likely reactive and s/p solumedrol 03/01 - improved Hypotension - of pressors E. coli UTI, POA, 02/22 on Zosyn Lactic acidosis, better Pulmonary effusions Acute diastolic heart failure S/p NSTEMI Sulfa allergy Diabetes Plan Plan of Care Continue Zosyn Probiotics PICC maintenance care Monitor labs/VS Supportive care D/w nursing SERGO ETIENNE MD March 04, 2019 07:12
[2019-03-04] MEDS: POLYETHYLENE GLYCOL 3350 17 GM PACKET. PO SCH ×2 (07:54→21:00)
[2019-03-04] MEDS: ASPIRIN ENTERIC COATED 81 MG TABLET.DR. PO SCH (07:54)
[2019-03-04] MEDS: PANTOPRAZOLE 40 MG TABLET.DR. PO SCH (07:54)
[2019-03-04] MEDS: DICLOFENAC SODIUM 1% TOPICAL GEL 100GM TUBE. TP SCH ×2 (07:55→21:12)
[2019-03-04] MEDS: KETOTIFEN FUMARATE 0.025% OPHTH SOLUTION BOTTLE. OU PRN (07:55)
[2019-03-04] MEDS: CHLORHEXIDINE 0.12% 15 ML MOUTHWASH. MM SCH (07:55)
--- NOTE | 2019-03-04 07:55 | RAD ---
CHEST AP ONLY History: Pulmonary infiltrate Comparison: March 03, 2019 Findings: Single view of the chest is submitted. There is again enteric catheter coursing into the stomach, not fully seen. There is right upper extremity PICC coursing into the superior vena cava. There is endotracheal tube with tip about 1 cm from julieta. There is atherosclerotic calcification of the thoracic aorta. Heart size is similar. There is persistent airspace opacity at the right lung base, also perihilar and as well as interstitial reticular opacity bilaterally fairly similar. Some hazy airspace opacity at the left lung base is somewhat greater. There may be a small right pleural effusion. No pneumothorax is identified. Impression: 1. There are support catheters and tubes as stated. There is somewhat increased hazy left base airspace opacity which may be a component of edema, other airspace and interstitial opacity bilaterally as seen previously which may be due to infiltrates and/or edema. Electronically signed by: William Nieto MD (03/04/2019 7:52 AM) [id number]
[2019-03-04 08:15] LABS: BASE EXCESS ABG -1 mmol/L (-3-3); HCO3 ABG 22 mmol/L (21-28); PCO2 ABG 30 mmHg (35-46); PO2 ABG 85 mmHg (65-108); SAT O2 ABG 96 % (92-99)
[2019-03-04 08:17] LABS: FIO2 ABG 40
--- NOTE | 2019-03-04 08:23 | CARD ---
MR#: [id number] Date of Study: 03/03/2019 Ordering Physician: DEYANIRA ROBERTS, Referring Physician: DEYANIRA ROBERTS, Tech: RT Talya (Akash) ANDREINA APPROVED REPORT Technologist: RT Talya (R) ANDREINA Nurse: Nela Escamilla R.N. Procedure(s) performed: FLUORO TIME: 12.5 MIN DAP: 211 CONTRAST 202 [facility], CORONARY ANGIOGRAPHY, PCI OF THE LM HISTORY The patient is a 84 year-old female with a history of : hypertension, dyslipidemia. INDICATION The indication(s) include : non-STEMI . PROCEDURE NARRATIVE After explaining the risks and benefits of the procedure and alternatives, informed consent was obtai ashley. The patient was brought electively to the cardiac catheterization lab in a fasting state. A lulú eout was performed confirming the patient's name, date of , procedure, and site of procedure. A ll necessary personnel were wearing the appropriate protective equipment and radiation monitor device s. (See nursing notes for medications administered). The right groin was sterilely prepped and drap ed in the usual fashion. The right groin was infiltrated with 10 mL of 2% lidocaine for subcutaneous anesthesia. A 6 F sheath was inserted into the right femoral artery with moderate difficulty due to significant scar tissue in the bilateral groins from prior aorto-bifemoral bypass. Right and left c oronary angiography was performed using a JR4 and JL4 catheter. Left ventricular end diastolic press ure was obtained with a pigtail catheter and pullback was performed. All catheter exchanges and adva ncements were performed over a guidewire. HEMODYNAMICS: AO: 140/80 LVEDP 28 mm Hg No gradient on LV to aortic pullback. LEFT VENTRICULOGRAM: Deferred due to known normal EF by echo. CORONARY ANGIOGRAPHY: LM is a large caliber vessel with an ostial 90% stenosis. LAD is a large caliber vessel with mild luminal irregularities. D1 is a moderate caliber vessel with mild luminal irregularities. LCx is a moderate caliber non-dominant vessel with normal angiographic appearance. OM1 is a moderate caliber vessel with normal angiographic appearance. RCA is a large caliber dominant vessel with a mid subtotal occlusion. INTERVENTIONAL TECHNIQUE: PCI OF THE LEFT MAIN. A discussion was held with the patient's family regarding critical nature of her disease, available o ptions including high risk non-supported LM PCI due to her peripheral vascular disease. The family ag rona to proceed wt ad hoc LM PCI. Heparin was used for anticoagulation. Through a 6Fr JL4 guide cat heter, a 0.014'' Prowater wire was advanced to the distal LAD and LCx. Balloon angioplasty was perfor med with a Trek 4.0/12 mm balloon and the lesion was stented with a 4.0/12 mm REsolute DRE. There was 30% residual stenosis in the mid segment which was post-dilated with a 4.5 mm NC balloon. 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 The patient tolerated the procedure well. At case c ompletion the right femoral sheath was sutured to the skin and the patient was transported to the ICU in stable but critical condition. This was a complex case due to critical illness and anatomy of the patient. The patient received 180mg of Ticagrelor at case completion. Conclusion 1. Elevated left sided filling pressures, consistent with acute on chronic diastolic HF 2. Critical LM disease and RCA occlusion 3. Successful PCI of the LM with a 4.0/12 mm DRE, post-dilated with a 4.5 mm NC balloon. Recommendations ASA 81mg daily Ticagrelor 90mg bid x 1 year, consider lifelong DAPT. Continue weaning plans per pulmonary team. Signed by : Campos Vu, Electronically Approved : 03/04/2019 08:22:33
--- NOTE | 2019-03-04 09:54 | PDOC ---
PULMONARY PROGRESS NOTES Subjective PT CODED S/P PEA NOW INTUBATED/ AC mode Vitals Vital Signs Date Time Temp Pulse Resp B/P (MAP) Pulse Ox O2 Delivery O2 Flow Rate FiO2 03/04/19 09:39 100 Ventilator 03/04/19 09:00 73 16 100/46 (64) 03/04/19 07:00 98.7 98.7 Lungs: Other (COARSE BS) Cardiovascular: S1, S2 Abdomen: Soft Extremities: No Edema Skin: Warm, Dry Labs Laboratory Tests Test 03/03/19 04:45 03/03/19 05:32 03/03/19 08:00 03/03/19 17:04 White Blood Count 21.2 x10^3/uL (4.0-11.0) Red Blood Count 3.66 x10^6/uL (3.50-5.40) Hemoglobin 11.3 g/dL (12.0-15.5) Hematocrit 36.0 % (36.0-47.0) Mean Corpuscular Volume 98 fL (79-100) Mean Corpuscular Hemoglobin 31 pg (25-35) Mean Corpuscular Hemoglobin Concent 31 g/dL (31-37) Red Cell Distribution Width 14.7 % (11.5-14.5) Platelet Count 427 x10^3/uL (140-400) Neutrophils (%) (Auto) 55 % (31-73) Lymphocytes (%) (Auto) 36 % (24-48) Monocytes (%) (Auto) 8 % (0-9) Eosinophils (%) (Auto) 2 % (0-3) Basophils (%) (Auto) 0 % (0-3) Neutrophils # (Auto) 11.6 x10^3uL (1.8-7.7) Lymphocytes # (Auto) 7.6 x10^3/uL (1.0-4.8) Monocytes # (Auto) 1.6 x10^3/uL (0.0-1.1) Eosinophils # (Auto) 0.3 x10^3/uL (0.0-0.7) Basophils # (Auto) 0.0 x10^3/uL (0.0-0.2) Sodium Level 146 mmol/L (136-145) Potassium Level 5.6 mmol/L (3.5-5.1) Chloride Level 106 mmol/L (98-107) Carbon Dioxide Level 26 mmol/L (21-32) Anion Gap 14 (6-14) Blood Urea Nitrogen 21 mg/dL (7-20) Creatinine 1.1 mg/dL (0.6-1.0) Estimated GFR (Cockcroft-Gault) 57.0 Glucose Level 161 mg/dL (70-99) Calcium Level 9.7 mg/dL (8.5-10.1) Glucose (Fingerstick) 157 mg/dL (70-99) O2 Saturation 91 % (92-99) Arterial Blood pH 7.35 (7.35-7.45) Arterial Blood pCO2 at Patient Temp 35 mmHg (35-46) Arterial Blood pO2 at Patient Temp 65 mmHg (65-108) Arterial Blood HCO3 19 mmol/L (21-28) Arterial Blood Base Excess -6 mmol/L (-3-3) FiO2 40 Activated Clotting Time 213 sec (92-181) Test 03/04/19 05:40 03/04/19 08:10 White Blood Count 10.7 x10^3/uL (4.0-11.0) Red Blood Count 2.58 x10^6/uL (3.50-5.40) Hemoglobin 8.2 g/dL (12.0-15.5) Hematocrit 24.7 % (36.0-47.0) Mean Corpuscular Volume 96 fL (79-100) Mean Corpuscular Hemoglobin 32 pg (25-35) Mean Corpuscular Hemoglobin Concent 33 g/dL (31-37) Red Cell Distribution Width 14.1 % (11.5-14.5) Platelet Count 313 x10^3/uL (140-400) Neutrophils (%) (Auto) 76 % (31-73) Lymphocytes (%) (Auto) 15 % (24-48) Monocytes (%) (Auto) 7 % (0-9) Eosinophils (%) (Auto) 2 % (0-3) Basophils (%) (Auto) 1 % (0-3) Neutrophils # (Auto) 8.1 x10^3uL (1.8-7.7) Lymphocytes # (Auto) 1.6 x10^3/uL (1.0-4.8) Monocytes # (Auto) 0.7 x10^3/uL (0.0-1.1) Eosinophils # (Auto) 0.2 x10^3/uL (0.0-0.7) Basophils # (Auto) 0.1 x10^3/uL (0.0-0.2) Sodium Level 144 mmol/L (136-145) Potassium Level 3.4 mmol/L (3.5-5.1) Chloride Level 105 mmol/L (98-107) Carbon Dioxide Level 25 mmol/L (21-32) Anion Gap 14 (6-14) Blood Urea Nitrogen 30 mg/dL (7-20) Creatinine 1.4 mg/dL (0.6-1.0) Estimated GFR (Cockcroft-Gault) 43.1 Glucose Level 128 mg/dL (70-99) Calcium Level 8.1 mg/dL (8.5-10.1) O2 Saturation 96 % (92-99) Arterial Blood pH 7.48 (7.35-7.45) Arterial Blood pCO2 at Patient Temp 30 mmHg (35-46) Arterial Blood pO2 at Patient Temp 85 mmHg (65-108) Arterial Blood HCO3 22 mmol/L (21-28) Arterial Blood Base Excess -1 mmol/L (-3-3) FiO2 40 Laboratory Tests Test 03/03/19 17:04 03/04/19 05:40 03/04/19 08:10 Activated Clotting Time 213 sec (92-181) White Blood Count 10.7 x10^3/uL (4.0-11.0) Red Blood Count 2.58 x10^6/uL (3.50-5.40) Hemoglobin 8.2 g/dL (12.0-15.5) Hematocrit 24.7 % (36.0-47.0) Mean Corpuscular Volume 96 fL (79-100) Mean Corpuscular Hemoglobin 32 pg (25-35) Mean Corpuscular Hemoglobin Concent 33 g/dL (31-37) Red Cell Distribution Width 14.1 % (11.5-14.5) Platelet Count 313 x10^3/uL (140-400) Neutrophils (%) (Auto) 76 % (31-73) Lymphocytes (%) (Auto) 15 % (24-48) Monocytes (%) (Auto) 7 % (0-9) Eosinophils (%) (Auto) 2 % (0-3) Basophils (%) (Auto) 1 % (0-3) Neutrophils # (Auto) 8.1 x10^3uL (1.8-7.7) Lymphocytes # (Auto) 1.6 x10^3/uL (1.0-4.8) Monocytes # (Auto) 0.7 x10^3/uL (0.0-1.1) Eosinophils # (Auto) 0.2 x10^3/uL (0.0-0.7) Basophils # (Auto) 0.1 x10^3/uL (0.0-0.2) Sodium Level 144 mmol/L (136-145) Potassium Level 3.4 mmol/L (3.5-5.1) Chloride Level 105 mmol/L (98-107) Carbon Dioxide Level 25 mmol/L (21-32) Anion Gap 14 (6-14) Blood Urea Nitrogen 30 mg/dL (7-20) Creatinine 1.4 mg/dL (0.6-1.0) Estimated GFR (Cockcroft-Gault) 43.1 Glucose Level 128 mg/dL (70-99) Calcium Level 8.1 mg/dL (8.5-10.1) O2 Saturation 96 % (92-99) Arterial Blood pH 7.48 (7.35-7.45) Arterial Blood pCO2 at Patient Temp 30 mmHg (35-46) Arterial Blood pO2 at Patient Temp 85 mmHg (65-108) Arterial Blood HCO3 22 mmol/L (21-28) Arterial Blood Base Excess -1 mmol/L (-3-3) FiO2 40 Medications Active Scripts Medications Dose Route/Sig Max Daily Dose Days Date Category Amlodipine Besylate 10 Mg Tablet 10 Mg PO DAILY 09/23/16 Reported Tramadol Hcl 50 Mg Tablet 50 Mg PO Q4H PRN 04/07/14 Reported Fish Oil 1,000 Mg Capsule ([place]-3 Fatty Acids/Fish Oil) 1 Each Capsule 1 Each PO 04/07/14 Reported Vitamin D3 (Cholecalciferol (Vitamin D3)) 5,000 Unit Capsule 5,000 Unit PO 04/07/14 Reported Acetaminophen 500 Mg Tablet 500 Mg PO 04/07/14 Reported Aspir 81 (Aspirin) 81 Mg Tablet.dr 81 Mg PO 04/07/14 Reported Hydrochlorothiazide Tablet (Hydrochlorothiazide) 25 Mg Tablet 25 Mg PO DAILY 04/07/14 Reported Pravastatin Sodium 40 Mg Tablet 40 Mg PO DAILY 04/07/14 Reported Miralax (Polyethylene Glycol 3350) 17 Gm Powd.pack 1 Pkt PO DAILY 04/07/14 Reported [fiber] 04/07/14 Reported Temazepam 30 Mg Capsule 30 Mg PO HS PRN 04/07/14 Reported Cozaar (Losartan Potassium) 100 Mg Tablet 100 Mg PO DAILY 04/07/14 Reported Comments cxr 03/04 bilateral infiltrates Impression . IMPRESSION: 1. Acute hypoxemic respiratory failure. 2. Progressive dyspnea, multifactorial secondary to bilateral effusions with atelectasis and vascular congestion, suspect acute on chronic diastolic heart failure./ cannot exclude alveolar Hr ( coarse bs, 3 gram decrease in Hb) 3. Acute diastolic heart failure. 4. Non-ST segment elevation myocardial infarction. 5. Recent sepsis and hypotension, improved. 6. Peripheral vascular disease, status post previous fem-pop and carotid endarterectomy. 7. Valvular heart disease. 8/ S/P CARDIOPULMONARY ARREST IN HOUSE 03/02 9. s/p cath, LM stent, increase filling pressures CT Impression: No pulmonary arterial thromboembolic disease although evaluation may be limited in regions of bibasilar lower lobe passive atelectasis due to moderate-sized bilateral pleural effusions. Centrilobular emphysema. Plan . AC MODE VERY COARSE BS, ALVEOLAR FLUID VS ALVEOLAR BLOOD WILL BENEFIT FORM BRONCH HOLD THORACENTESIS D/W RN MONITOR HB FOLLOW CARD REC DIURESE PER CARD PROCALCITONIN 1.18 NOT NOT VERY HIGH NEB D/W FAMILY CCT 30 MIN MAURI CHAPA MD March 04, 2019 09:54
[2019-03-04] MEDS ORDERED: LIDOCAINE 2% VISCOUS 100 ML BOTTLE. MM PRN (10:45)
[2019-03-04] MEDS ORDERED: LIDOCAINE 1% Multi-Dose 20 ML VIAL. INJ PRN (10:45)
--- NOTE | 2019-03-04 11:06 | NUR ---
SS following up with discharge planning. Pt accepted at [facility], ; fax [phone], when medically stable for transfer.
--- NOTE | 2019-03-04 11:33 | OP ---
DATE OF SURGERY: PROCEDURE: Bronchoscopy. INDICATIONS: Abnormal infiltrates, diffuse coarse breath sounds, suspect alveolar hemorrhage versus alveolar edema. DESCRIPTION OF PROCEDURE: Informed consent was obtained from the patient's family, they agreed to proceed with the procedure. The patient was already intubated on propofol. Bronch was introduced through the endotracheal tube. Upon inspection of the distal trachea, white secretions were observed. There was diffuse erythema and sloughing of the airway mucosa seen along with white patches seen in the trachea and also in the right mainstem bronchus. They were present at the opening of the right middle lobe as well as opening of the right upper lobe. The mucosa was very erythematous. No active bleeding noticed. Bronchoalveolar lavage performed from right middle lobe and right upper lobe. The right lower lobe was patent. Bronch was introduced into the left lung. No purulent secretions seen and no mucosal abnormality seen. The patient tolerated the procedure well. IMPRESSION: 1. Diffuse erythema with a white plaque-like lining of the distal trachea as well as erythema observed in the right mainstem and the opening of the right middle and right upper lobe. This is consistent with inflammation, possible acid aspiration. 2. No active alveolar hemorrhage observed. 3. Bronchoalveolar lavage performed from right middle lobe and right upper lobe and sent for appropriate studies. MAURI CHAPA MD DR: YOBANY/lexi JOB#: [id number] / [id number]
[2019-03-04] MEDS: ALBUTEROL SULFATE 2.5 MG/3 ML NEBU. NEB PRN (11:48)
[2019-03-04 13:05] LABS: HEMOGLOBIN 8.6 g/dL (12.0-15.5); RED BLOOD COUNT 2.72 x10^6/uL (3.50-5.40); RED CELL DISTRIBUTION WIDTH 14.4 % (11.5-14.5); WHITE BLOOD COUNT 12.1 x10^3/uL (4.0-11.0)
[2019-03-04] MEDS: TICAGRELOR 90 MG TABLET. PO SCH ×2 (13:16→21:12)
[2019-03-04 13:17] LABS: BASE EXCESS ABG 0 mmol/L (-3-3); HCO3 ABG 23 mmol/L (21-28); PCO2 ABG 31 mmHg (35-46); PO2 ABG 87 mmHg (65-108); SAT O2 ABG 96 % (92-99)
[2019-03-04 13:26] LABS: FIO2 ABG 40
--- NOTE | 2019-03-04 13:57 | PDOC ---
RENÉ SERRANO STERILIZER OPERATOR 03/04/19 1357: CARDIO Progress Notes Date and Time Date of Service 03/04/2019 Time of Evaluation 1310 Subjective Subjective: No Palpitations, Other (chest pain with recent chest compression, painful to touch; intubated) Vitals Vitals Vital Signs Date Time Temp Pulse Resp B/P (MAP) Pulse Ox O2 Delivery O2 Flow Rate FiO2 03/04/19 13:00 96 24 102/58 (73) 97 Ventilator 03/04/19 11:00 98.2 98.2 Weight Weight [ ] Input and Output Intake and Output Intake and Output 03/04/19 06:59 Intake Total 1458 ml Output Total 930 ml Balance 528 ml Intake Oral 200 ml IV Total 844 ml Tube Feeding 314 ml Other 100 ml Output Urine Total 930 ml Gastric Drainage Total 0 ml Laboratory Labs Laboratory Tests Test 03/03/19 17:04 03/04/19 05:40 03/04/19 08:10 03/04/19 12:50 Activated Clotting Time 213 sec (92-181) White Blood Count 10.7 x10^3/uL (4.0-11.0) 12.1 x10^3/uL (4.0-11.0) Red Blood Count 2.58 x10^6/uL (3.50-5.40) 2.72 x10^6/uL (3.50-5.40) Hemoglobin 8.2 g/dL (12.0-15.5) 8.6 g/dL (12.0-15.5) Hematocrit 24.7 % (36.0-47.0) 26.0 % (36.0-47.0) Mean Corpuscular Volume 96 fL (79-100) 95 fL (79-100) Mean Corpuscular Hemoglobin 32 pg (25-35) 32 pg (25-35) Mean Corpuscular Hemoglobin Concent 33 g/dL (31-37) 33 g/dL (31-37) Red Cell Distribution Width 14.1 % (11.5-14.5) 14.4 % (11.5-14.5) Platelet Count 313 x10^3/uL (140-400) 339 x10^3/uL (140-400) Neutrophils (%) (Auto) 76 % (31-73) Lymphocytes (%) (Auto) 15 % (24-48) Monocytes (%) (Auto) 7 % (0-9) Eosinophils (%) (Auto) 2 % (0-3) Basophils (%) (Auto) 1 % (0-3) Neutrophils # (Auto) 8.1 x10^3uL (1.8-7.7) Lymphocytes # (Auto) 1.6 x10^3/uL (1.0-4.8) Monocytes # (Auto) 0.7 x10^3/uL (0.0-1.1) Eosinophils # (Auto) 0.2 x10^3/uL (0.0-0.7) Basophils # (Auto) 0.1 x10^3/uL (0.0-0.2) Sodium Level 144 mmol/L (136-145) Potassium Level 3.4 mmol/L (3.5-5.1) Chloride Level 105 mmol/L (98-107) Carbon Dioxide Level 25 mmol/L (21-32) Anion Gap 14 (6-14) Blood Urea Nitrogen 30 mg/dL (7-20) Creatinine 1.4 mg/dL (0.6-1.0) Estimated GFR (Cockcroft-Gault) 43.1 Glucose Level 128 mg/dL (70-99) Calcium Level 8.1 mg/dL (8.5-10.1) O2 Saturation 96 % (92-99) Arterial Blood pH 7.48 (7.35-7.45) Arterial Blood pCO2 at Patient Temp 30 mmHg (35-46) Arterial Blood pO2 at Patient Temp 85 mmHg (65-108) Arterial Blood HCO3 22 mmol/L (21-28) Arterial Blood Base Excess -1 mmol/L (-3-3) FiO2 40 Test 03/04/19 13:10 O2 Saturation 96 % (92-99) Arterial Blood pH 7.48 (7.35-7.45) Arterial Blood pCO2 at Patient Temp 31 mmHg (35-46) Arterial Blood pO2 at Patient Temp 87 mmHg (65-108) Arterial Blood HCO3 23 mmol/L (21-28) Arterial Blood Base Excess 0 mmol/L (-3-3) FiO2 40 Microbiology Micro Microbiology 02/22/19 Blood Culture - Final, Complete NO GROWTH AFTER 5 DAYS 03/04/19 - Final, Complete 02/22/19 Urine Culture - Final, Complete 02/22/19 Urine Culture Result 1 (JIN) - Final, Complete 02/22/19 Antimicrobic Susceptibility - Final, Complete Physical Exam HEENT: Neck Supple W Full Motion Chest: Symmetric LUNGS: Other (basilar crackles) Heart: S1S2, RRR (SR), other (distant heart tones) Abdomen: Other (soft) Extremities: No Calf Tenderness Neurology: alert, follow commands, other (recognizes me) Other Exams right groin arteriotomy site intact, tender but no swelling or bruising, neurovascular status to bilateral LE intact. Assessment Assessment 1. PEA arrest; 5-6 min to ROSC. Etiology both from ischemia and hypoxia. SR/RBBB. S/P PCI/DRE to LM. RCA with subtotal mid occlusion. 2. NSTEMI: Trop peaked at 12 3. Acute respiratory failure: weaning process today. on vent. S/P Bronchoscopy. 4. Sepsis/shock: off pressors. BP marginal but stable. 5. Acute diastolic CHF 5. SEBAS 6. Hyperkalemia: resolved 7. Normocytic anemia: Hgb steady at 8.6, no obvious bleed. Recommendations 1. Limited TTE tomorrow. 2. ASA 81 mg and Brilinta. Statin. Await swallow eval today. If remains NPO after the latter then low maintenance fluids. 3. BB to start soon per BP trend. Await EF and and will reeval for ACEi/ARB per LV function 4. May topical analgesic for chest, pain from CPR. defer to PCP. 5. Sensitive to volume, Lasix PRN 6. With Hgb being low, would recommend DC heparin SQ and rely on reginald hose and SCDs. 7. Outpt event monitor is a consideration. SEGUNDO BRAXTON MD 03/04/19 3799: CARDIO Progress Notes Plan Plan Patient seen and examined. Agree with above nurse practitioner note. Weaning trials are ongoing at this time. She's had some mild anemia. This morning she is awake. Continue supportive care from a cardiac perspective. Status post bronchoscopy by pulmonary. RENÉ SERRANO STERILIZER OPERATOR March 04, 2019 13:57 SEGUNDO BRAXTON MD March 04, 2019 17:19
[2019-03-04] MEDS ORDERED: POTASSIUM CHLORIDE 10MEQ 100 ML IV SCH (14:30)
--- NOTE | 2019-03-04 14:41 | PDOC ---
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, Mild TR Mild Colonic ileus History of Present Illness History of Present Illness Patient seen and examined She is now intubated for the past 2 days and in the intensive care unit Daughter is present I discussed with her in the nurse Vent settings as follows assist-control/16/500/50% with 5 of PEEP and she is satting in the mid 90s Reviewed the code with the nurse CODE Events 2 days ago The patient became very anxious and then went into the PEA She was coded for 9 minutes including compressions and intubation Vitals Vitals Vital Signs Date Time Temp Pulse Resp B/P (MAP) Pulse Ox O2 Delivery O2 Flow Rate FiO2 03/04/19 14:00 100 22 105/68 (80) 97 Nasal Cannula 2.0 03/04/19 11:00 98.2 98.2 Physical Exam Physical Exam GENERAL: Sedated and orally intubated - opened eyes HEENT: Pupils equally round, small. Normal conjunctivae. OGT, ETT NECK: Supple. LUNGS: + rhonchi HEART: S1 and S2. ABDOMEN: Soft : Leach in place EXTREMITIES: No gross edema or cyanosis. SKIN: Warm without generalized rash. NEUROLOGIC: Sedated/unresponsive aside from opening eyes RUE-PICC (02/25) without signs of any complications. Right groin line is clean General: Alert, Oriented X3, No acute distress, Other (improved appearance) Heart: Other (soft S1-S2 intermittent tachycardia) Lungs: Other (COARSE BS) Abdomen: Normal bowel sounds Extremities: No clubbing, No cyanosis, No edema, Other (Decreased peripheral pulses in RUE, LUE and LLE, good pulses RLE) Skin: No rashes, No breakdown, No significant lesion Labs LABS Laboratory Tests Test 03/03/19 17:04 03/04/19 05:40 03/04/19 08:10 03/04/19 12:50 Activated Clotting Time 213 sec (92-181) White Blood Count 10.7 x10^3/uL (4.0-11.0) 12.1 x10^3/uL (4.0-11.0) Red Blood Count 2.58 x10^6/uL (3.50-5.40) 2.72 x10^6/uL (3.50-5.40) Hemoglobin 8.2 g/dL (12.0-15.5) 8.6 g/dL (12.0-15.5) Hematocrit 24.7 % (36.0-47.0) 26.0 % (36.0-47.0) Mean Corpuscular Volume 96 fL (79-100) 95 fL (79-100) Mean Corpuscular Hemoglobin 32 pg (25-35) 32 pg (25-35) Mean Corpuscular Hemoglobin Concent 33 g/dL (31-37) 33 g/dL (31-37) Red Cell Distribution Width 14.1 % (11.5-14.5) 14.4 % (11.5-14.5) Platelet Count 313 x10^3/uL (140-400) 339 x10^3/uL (140-400) Neutrophils (%) (Auto) 76 % (31-73) Lymphocytes (%) (Auto) 15 % (24-48) Monocytes (%) (Auto) 7 % (0-9) Eosinophils (%) (Auto) 2 % (0-3) Basophils (%) (Auto) 1 % (0-3) Neutrophils # (Auto) 8.1 x10^3uL (1.8-7.7) Lymphocytes # (Auto) 1.6 x10^3/uL (1.0-4.8) Monocytes # (Auto) 0.7 x10^3/uL (0.0-1.1) Eosinophils # (Auto) 0.2 x10^3/uL (0.0-0.7) Basophils # (Auto) 0.1 x10^3/uL (0.0-0.2) Sodium Level 144 mmol/L (136-145) Potassium Level 3.4 mmol/L (3.5-5.1) Chloride Level 105 mmol/L (98-107) Carbon Dioxide Level 25 mmol/L (21-32) Anion Gap 14 (6-14) Blood Urea Nitrogen 30 mg/dL (7-20) Creatinine 1.4 mg/dL (0.6-1.0) Estimated GFR (Cockcroft-Gault) 43.1 Glucose Level 128 mg/dL (70-99) Calcium Level 8.1 mg/dL (8.5-10.1) Magnesium Level 2.0 mg/dL (1.8-2.4) O2 Saturation 96 % (92-99) Arterial Blood pH 7.48 (7.35-7.45) Arterial Blood pCO2 at Patient Temp 30 mmHg (35-46) Arterial Blood pO2 at Patient Temp 85 mmHg (65-108) Arterial Blood HCO3 22 mmol/L (21-28) Arterial Blood Base Excess -1 mmol/L (-3-3) FiO2 40 Test 03/04/19 13:10 O2 Saturation 96 % (92-99) Arterial Blood pH 7.48 (7.35-7.45) Arterial Blood pCO2 at Patient Temp 31 mmHg (35-46) Arterial Blood pO2 at Patient Temp 87 mmHg (65-108) Arterial Blood HCO3 23 mmol/L (21-28) Arterial Blood Base Excess 0 mmol/L (-3-3) FiO2 40 Assessment and Plan Assessmemt and Plan Problems Medical Problems: (1) Septic shock Status: Acute Status post CODE BLUE this morning now intubated him back in ICU Recent sepsis with resolving hypotension Sudden dyspnea: mild CHF NSTEMI: PAD Hx of HTN Valvular insufficiency: Mild AI, mild to mod MR, Mild TR Mild Colonic ileus PEA arrest; 5-6 min to ROSC. Etiology both from ischemia and hypoxia. SR/RBBB. S/P PCI/DRE to LM. RCA with subtotal mid occlusion. NSTEMI: Trop peaked at 12 Acute respiratory failure: weaning process today. on vent. S/P Bronchoscopy. Sepsis/shock: off pressors. BP marginal but stable. Acute diastolic CHF SEBAS Hyperkalemia: Plan ICU monitoring Vent weaning DVT prophylaxis Echocardiogram ASA 81 mg and Brilinta. Statin. Sensitive to volume, Lasix PRN Discussed with daughter and nurse and nurse practitioner for cardiology This is a critically ill patient Total time 42 minutes Comment Review of Relevant I have reviewed the following items ne (where applicable) has been applied. Labs Laboratory Tests Test 03/03/19 04:45 03/03/19 05:32 03/03/19 08:00 03/03/19 17:04 White Blood Count 21.2 x10^3/uL (4.0-11.0) Red Blood Count 3.66 x10^6/uL (3.50-5.40) Hemoglobin 11.3 g/dL (12.0-15.5) Hematocrit 36.0 % (36.0-47.0) Mean Corpuscular Volume 98 fL (79-100) Mean Corpuscular Hemoglobin 31 pg (25-35) Mean Corpuscular Hemoglobin Concent 31 g/dL (31-37) Red Cell Distribution Width 14.7 % (11.5-14.5) Platelet Count 427 x10^3/uL (140-400) Neutrophils (%) (Auto) 55 % (31-73) Lymphocytes (%) (Auto) 36 % (24-48) Monocytes (%) (Auto) 8 % (0-9) Eosinophils (%) (Auto) 2 % (0-3) Basophils (%) (Auto) 0 % (0-3) Neutrophils # (Auto) 11.6 x10^3uL (1.8-7.7) Lymphocytes # (Auto) 7.6 x10^3/uL (1.0-4.8) Monocytes # (Auto) 1.6 x10^3/uL (0.0-1.1) Eosinophils # (Auto) 0.3 x10^3/uL (0.0-0.7) Basophils # (Auto) 0.0 x10^3/uL (0.0-0.2) Sodium Level 146 mmol/L (136-145) Potassium Level 5.6 mmol/L (3.5-5.1) Chloride Level 106 mmol/L (98-107) Carbon Dioxide Level 26 mmol/L (21-32) Anion Gap 14 (6-14) Blood Urea Nitrogen 21 mg/dL (7-20) Creatinine 1.1 mg/dL (0.6-1.0) Estimated GFR (Cockcroft-Gault) 57.0 Glucose Level 161 mg/dL (70-99) Calcium Level 9.7 mg/dL (8.5-10.1) Glucose (Fingerstick) 157 mg/dL (70-99) O2 Saturation 91 % (92-99) Arterial Blood pH 7.35 (7.35-7.45) Arterial Blood pCO2 at Patient Temp 35 mmHg (35-46) Arterial Blood pO2 at Patient Temp 65 mmHg (65-108) Arterial Blood HCO3 19 mmol/L (21-28) Arterial Blood Base Excess -6 mmol/L (-3-3) FiO2 40 Activated Clotting Time 213 sec (92-181) Test 03/04/19 05:40 03/04/19 08:10 03/04/19 12:50 03/04/19 13:10 White Blood Count 10.7 x10^3/uL (4.0-11.0) 12.1 x10^3/uL (4.0-11.0) Red Blood Count 2.58 x10^6/uL (3.50-5.40) 2.72 x10^6/uL (3.50-5.40) Hemoglobin 8.2 g/dL (12.0-15.5) 8.6 g/dL (12.0-15.5) Hematocrit 24.7 % (36.0-47.0) 26.0 % (36.0-47.0) Mean Corpuscular Volume 96 fL (79-100) 95 fL (79-100) Mean Corpuscular Hemoglobin 32 pg (25-35) 32 pg (25-35) Mean Corpuscular Hemoglobin Concent 33 g/dL (31-37) 33 g/dL (31-37) Red Cell Distribution Width 14.1 % (11.5-14.5) 14.4 % (11.5-14.5) Platelet Count 313 x10^3/uL (140-400) 339 x10^3/uL (140-400) Neutrophils (%) (Auto) 76 % (31-73) Lymphocytes (%) (Auto) 15 % (24-48) Monocytes (%) (Auto) 7 % (0-9) Eosinophils (%) (Auto) 2 % (0-3) Basophils (%) (Auto) 1 % (0-3) Neutrophils # (Auto) 8.1 x10^3uL (1.8-7.7) Lymphocytes # (Auto) 1.6 x10^3/uL (1.0-4.8) Monocytes # (Auto) 0.7 x10^3/uL (0.0-1.1) Eosinophils # (Auto) 0.2 x10^3/uL (0.0-0.7) Basophils # (Auto) 0.1 x10^3/uL (0.0-0.2) Sodium Level 144 mmol/L (136-145) Potassium Level 3.4 mmol/L (3.5-5.1) Chloride Level 105 mmol/L (98-107) Carbon Dioxide Level 25 mmol/L (21-32) Anion Gap 14 (6-14) Blood Urea Nitrogen 30 mg/dL (7-20) Creatinine 1.4 mg/dL (0.6-1.0) Estimated GFR (Cockcroft-Gault) 43.1 Glucose Level 128 mg/dL (70-99) Calcium Level 8.1 mg/dL (8.5-10.1) Magnesium Level 2.0 mg/dL (1.8-2.4) O2 Saturation 96 % (92-99) 96 % (92-99) Arterial Blood pH 7.48 (7.35-7.45) 7.48 (7.35-7.45) Arterial Blood pCO2 at Patient Temp 30 mmHg (35-46) 31 mmHg (35-46) Arterial Blood pO2 at Patient Temp 85 mmHg (65-108) 87 mmHg (65-108) Arterial Blood HCO3 22 mmol/L (21-28) 23 mmol/L (21-28) Arterial Blood Base Excess -1 mmol/L (-3-3) 0 mmol/L (-3-3) FiO2 40 40 Laboratory Tests Test 03/03/19 17:04 03/04/19 05:40 03/04/19 08:10 03/04/19 12:50 Activated Clotting Time 213 sec (92-181) White Blood Count 10.7 x10^3/uL (4.0-11.0) 12.1 x10^3/uL (4.0-11.0) Red Blood Count 2.58 x10^6/uL (3.50-5.40) 2.72 x10^6/uL (3.50-5.40) Hemoglobin 8.2 g/dL (12.0-15.5) 8.6 g/dL (12.0-15.5) Hematocrit 24.7 % (36.0-47.0) 26.0 % (36.0-47.0) Mean Corpuscular Volume 96 fL (79-100) 95 fL (79-100) Mean Corpuscular Hemoglobin 32 pg (25-35) 32 pg (25-35) Mean Corpuscular Hemoglobin Concent 33 g/dL (31-37) 33 g/dL (31-37) Red Cell Distribution Width 14.1 % (11.5-14.5) 14.4 % (11.5-14.5) Platelet Count 313 x10^3/uL (140-400) 339 x10^3/uL (140-400) Neutrophils (%) (Auto) 76 % (31-73) Lymphocytes (%) (Auto) 15 % (24-48) Monocytes (%) (Auto) 7 % (0-9) Eosinophils (%) (Auto) 2 % (0-3) Basophils (%) (Auto) 1 % (0-3) Neutrophils # (Auto) 8.1 x10^3uL (1.8-7.7) Lymphocytes # (Auto) 1.6 x10^3/uL (1.0-4.8) Monocytes # (Auto) 0.7 x10^3/uL (0.0-1.1) Eosinophils # (Auto) 0.2 x10^3/uL (0.0-0.7) Basophils # (Auto) 0.1 x10^3/uL (0.0-0.2) Sodium Level 144 mmol/L (136-145) Potassium Level 3.4 mmol/L (3.5-5.1) Chloride Level 105 mmol/L (98-107) Carbon Dioxide Level 25 mmol/L (21-32) Anion Gap 14 (6-14) Blood Urea Nitrogen 30 mg/dL (7-20) Creatinine 1.4 mg/dL (0.6-1.0) Estimated GFR (Cockcroft-Gault) 43.1 Glucose Level 128 mg/dL (70-99) Calcium Level 8.1 mg/dL (8.5-10.1) Magnesium Level 2.0 mg/dL (1.8-2.4) O2 Saturation 96 % (92-99) Arterial Blood pH 7.48 (7.35-7.45) Arterial Blood pCO2 at Patient Temp 30 mmHg (35-46) Arterial Blood pO2 at Patient Temp 85 mmHg (65-108) Arterial Blood HCO3 22 mmol/L (21-28) Arterial Blood Base Excess -1 mmol/L (-3-3) FiO2 40 Test 5/14/19 13:10 O2 Saturation 96 % (92-99) Arterial Blood pH 7.48 (7.35-7.45) Arterial Blood pCO2 at Patient Temp 31 mmHg (35-46) Arterial Blood pO2 at Patient Temp 87 mmHg (65-108) Arterial Blood HCO3 23 mmol/L (21-28) Arterial Blood Base Excess 0 mmol/L (-3-3) FiO2 40 Microbiology 02/22/19 Blood Culture - Final, Complete NO GROWTH AFTER 5 DAYS 03/04/19 - Final, Complete 02/22/19 Urine Culture - Final, Complete 02/22/19 Urine Culture Result 1 (JIN) - Final, Complete 02/22/19 Antimicrobic Susceptibility - Final, Complete Medications Current Medications Sodium Chloride 1,000 ml @ 1,000 mls/hr 1X ONCE IV Last administered on 02/22/19at 21:23; Start 02/22/19 at 20:45; Stop 02/22/19 at 21:44; Status DC Acetaminophen (Tylenol) 650 mg 1X ONCE PO Last administered on 02/22/19at 21:22; Start 02/22/19 at 20:45; Stop 02/22/19 at 20:52; Status DC Piperacillin Sod/ Tazobactam Sod (Zosyn Per Pharmacy) 1 each PRN DAILY PRN MC SEE COMMENTS; Start 02/22/19 at 20:45; Stop 02/23/19 at 14:53; Status DC Piperacillin Sod/ Tazobactam Sod 3.375 gm/Sodium Chloride 50 ml @ 100 mls/hr ONCE ONCE IV Last administered on 02/22/19at 21:23; Start 02/22/19 at 21:00; Stop 02/22/19 at 21:29; Status DC Sodium Chloride 1,000 ml @ 1,000 mls/hr 1X ONCE IV Last administered on 02/22/19at 23:44; Start 02/22/19 at 23:30; Stop 02/23/19 at 00:29; Status DC Sodium Chloride 1,000 ml @ 75 mls/hr [id number] IV Last administered on 02/23/19at 07:38; Start 02/22/19 at 23:30; Stop 02/23/19 at 08:17; Status DC Iohexol (Omnipaque 300 Mg/ml) 60 ml 1X ONCE IV Last administered on 02/23/19at 00:02; Start 02/23/19 at 00:15; Stop 02/23/19 at 00:16; Status DC Info (CONTRAST GIVEN -- Rx MONITORING) 1 each PRN DAILY PRN MC SEE COMMENTS; Start 02/23/19 at 00:15; Stop 02/25/19 at 00:14; Status DC Piperacillin Sod/ Tazobactam Sod 2.25 gm/Sodium Chloride 50 ml @ 100 mls/hr Q6HRS IV Last administered on 02/23/19at 12:26; Start 02/23/19 at 06:00; Stop 02/23/19 at 14:34; Status DC Sodium Chloride 1,000 ml @ 1,000 mls/hr 1X ONCE IV ; Start 02/23/19 at 01:00; Stop 02/23/19 at 01:45; Status DC Sodium Chloride 500 ml @ 500 mls/hr 1X ONCE IV Last administered on 02/23/19at 02:07; Start 02/23/19 at 02:00; Stop 02/23/19 at 02:59; Status DC Norepinephrine Bitartrate 250 ml @ 0 mls/hr 1X ONCE IV ; Start 02/23/19 at 02:00; Stop 02/23/19 at 02:01; Status DC Sodium Chloride 500 ml @ 500 mls/hr 1X ONCE IV Last administered on 02/23/19at 06:10; Start 02/23/19 at 02:00; Stop 02/23/19 at 02:59; Status DC Norepinephrine Bitartrate 250 ml @ 1.875 mls/ hr CONT PRN IV SEE I/O RECORD Last administered on 02/26/19at 09:00; Start 02/23/19 at 03:15; Stop 02/27/19 at 14:17; Status DC Ondansetron HCl (Zofran) 4 mg PRN Q6HRS PRN IV NAUSEA/VOMITING Last administered on 02/24/19at 23:21; Start 02/23/19 at 03:15 Iohexol (Omnipaque 300 Mg/ml) 100 ml STK-MED ONCE .ROUTE ; Start 02/23/19 at 04:24; Stop 02/23/19 at 04:25; Status DC Sodium Chloride 500 ml @ 500 mls/hr 1X ONCE IV Last administered on 02/23/19 08:28; Start 02/23/19 at 07:45; Stop 02/23/19 at 08:44; Status DC Acetaminophen (Tylenol) 650 mg PRN Q6HRS PRN PO MILD PAIN / TEMP Last administered on 03/02/19 04:32; Start 02/23/19 at 08:15 Ringer's Solution 1,000 ml @ 100 mls/hr Q10H IV Last administered on 02/27/19 23:15; Start 02/23/19 at 08:30; Stop 02/28/19 at 11:55; Status DC Ringer's Solution 500 ml @ 500 mls/hr 1X ONCE IV Last administered on 02/23/19 09:23; Start 02/23/19 at 09:15; Stop 02/23/19 at 10:14; Status DC Dopamine HCl/ Dextrose 250 ml @ 5.749 mls/ hr CONT PRN IV SEE I/O RECORD Last administered on 02/25/19 05:11; Start 02/23/19 at 12:15 Tramadol HCl (Ultram) 50 mg PRN Q6HRS PRN PO MODERATE-SEVERE PAIN Last administered on 03/02/19 21:59; Start 02/23/19 at 12:30 Heparin Sodium (Porcine) (Heparin Sodium) 4,000 unit 1X ONCE IV Last administered on 02/23/19 13:30; Start 02/23/19 at 13:00; Stop 02/23/19 at 13:01; Status DC Heparin Sodium/ Dextrose 500 ml @ 0 mls/hr CONT PRN IV SEE I/O RECORD Last administered on 02/25/19 05:12; Start 02/23/19 at 13:00; Stop 02/26/19 at 13:01; Status DC Heparin Sodium (Porcine) (Heparin Sodium) 1,900 unit PRN Q6HRS PRN IV FOR UFH LEVEL LESS THAN 0.2 Last administered on 02/25/19 09:35; Start 02/23/19 at 13:00; Stop 02/26/19 at 13:01; Status DC Polyethylene Glycol (miraLAX PACKET) 17 gm PRN BID PRN PO CONSTIPATION Last administered on 02/23/19 14:38; Start 02/23/19 at 13:15; Stop 02/23/19 at 14:59; Status DC Info (Anti-Coagulation Monitoring By Pharmacy) 1 each PRN DAILY PRN MC SEE COM MENTS Last administered on 02/26/19at 08:00; Start 02/23/19 at 13:30; Stop 02/26/19 at 13:50; Status DC Temazepam (Restoril) 15 mg PRN QHS PRN PO INSOMNIA Last administered on 03/02/19at 21:58; Start 02/23/19 at 14:45 Piperacillin Sod/ Tazobactam Sod 2.25 gm/Sodium Chloride 50 ml @ 100 mls/hr Q6HRS IV ; Start 02/23/19 at 18:00; Stop 02/23/19 at 18:00; Status DC Polyethylene Glycol (miraLAX PACKET) 17 gm BID PO Last administered on 03/04/19at 07:54; Start 02/23/19 at 21:00 Multi-Ingredient Ointment (Analgesic Moclips) 1 mara PRN QID PRN TP MUSCLE PAIN Last administered on 02/27/19at 09:18; Start 02/23/19 at 18:00 Pantoprazole Sodium (Protonix) 40 mg DAILYAC PO Last administered on 03/04/19 07:54; Start 02/24/19 at 17:30 Aspirin (Ecotrin) 325 mg 1X ONCE PO Last administered on 02/25/19 09:31; Start 02/25/19 at 09:15; Stop 02/25/19 at 09:16; Status DC Aspirin (Ecotrin) 81 mg DAILYWBKFT PO Last administered on 03/04/19at 07:54; Start 02/26/19 at 08:00 Potassium Chloride (Klor-Con) 40 meq 1X ONCE PO Last administered on 02/25/19 09:32; Start 02/25/19 at 09:15; Stop 02/25/19 at 09:16; Status DC Magnesium Sulfate/ Dextrose 100 ml @ 25 mls/hr 1X ONCE IV Last administered on 02/25/19at 11:49; Start 02/25/19 at 11:30; Stop 02/25/19 at 15:29; Status DC Piperacillin Sod/ Tazobactam Sod (Zosyn Per Pharmacy) 1 each PRN DAILY PRN MC SEE COMMENTS; Start 02/25/19 at 16:45 Piperacillin Sod/ Tazobactam Sod 2.25 gm/Sodium Chloride 50 ml @ 100 mls/hr Q6HRS IV Last administered on 03/04/19at 12:25; Start 02/25/19 at 18:00 Bisacodyl (Dulcolax Tab) 10 mg 1X ONCE PO Last administered on 02/26/19at 10:00; Start 02/26/19 at 10:00; Stop 02/26/19 at 10:01; Status DC Methylprednisolone Acetate (DEPO-Medrol 40MG VIAL) 40 mg 1X ONCE IM ; Start 02/26/19 at 12:15; Stop 02/26/19 at 12:20; Status DC Bupivacaine HCl (Sensorcaine-Mpf 0.25%) 10 ml 1X ONCE IJ ; Start 02/26/19 at 12:15; Stop 02/26/19 at 12:20; Status DC Methylprednisolone Acetate (DEPO-Medrol 40MG VIAL) 40 mg 1X ONCE IM ; Start 02/27/19 at 08:00; Stop 02/27/19 at 08:01; Status DC Bupivacaine HCl (Sensorcaine-Mpf 0.25%) 10 ml 1X ONCE IJ ; Start 02/27/19 at 08:00; Stop 02/27/19 at 08:01; Status DC Lactobacillus Rhamnosus (Culturelle) 1 cap BID PO Last administered on 03/03/19at 09:13; Start 02/26/19 at 21:00; Stop 03/03/19 at 12:23; Status DC Diclofenac Sodium (Voltaren) 1 mara BID TP Last administered on 03/04/19at 07:55; Start 02/26/19 at 21:00 Artificial Tears (Artificial Tears) 1 drop PRN Q2HR PRN OU DRY EYE Last administered on 03/01/19at 21:00; Start 02/26/19 at 19:15 Ketotifen Fumarate (Zaditor) 1 drop 1X ONCE OU Last administered on 02/27/19at 12:21; Start 02/27/19 at 09:30; Stop 02/27/19 at 09:31; Status DC Atorvastatin Calcium (Lipitor) 20 mg QHS PO Last administered on 03/03/19at 21:26; Start 02/27/19 at 21:00 Sodium Chloride 500 ml @ 500 mls/hr 1X ONCE IV Last administered on 02/28/19at 09:30; Start 02/28/19 at 09:30; Stop 02/28/19 at 10:29; Status DC Alteplase, Recombinant (Cathflo For Central Catheter Clearance) 1 mg 1X ONCE INT CAT ; Start 02/28/19 at 10:15; Stop 02/28/19 at 10:16; Status DC Sodium Chloride 1,000 ml @ 100 mls/hr Q10H IV Last administered on 02/28/19at 12:05; Start 02/28/19 at 12:00; Stop 02/28/19 at 16:41; Status DC Iohexol (Omnipaque 350 Mg/ml) 90 ml 1X ONCE IV Last administered on 02/28/19at 14:25; Start 02/28/19 at 12:30; Stop 02/28/19 at 12:31; Status DC Albuterol Sulfate (Ventolin Neb Soln) 2.5 mg PRN Q4HRS PRN NEB SHORTNESS OF BREATH Last administered on 03/04/19at 11:48; Start 02/28/19 at 13:30 Furosemide (Lasix) 20 mg 1X ONCE IVP Last administered on 02/28/19at 15:54; Start 02/28/19 at 15:30; Stop 02/28/19 at 15:32; Status DC Bupivacaine HCl (Sensorcaine-Mpf 0.25%) 10 ml STK-MED ONCE .ROUTE ; Start 03/01/19 at 11:00; Stop 03/02/19 at 13:29; Status DC Methylprednisolone Acetate (DEPO-Medrol 40MG VIAL) 40 mg STK-MED ONCE .ROUTE ; Start 03/01/19 at 11:00; Stop 03/02/19 at 13:29; Status DC Metoprolol Tartrate (Lopressor Vial) 5 mg 1X ONCE IVP Last administered on 03/02/19at 18:44; Start 03/02/19 at 18:45; Stop 03/02/19 at 18:46; Status DC Norepinephrine Bitartrate 250 ml @ 1.875 mls/ hr CONT PRN IV SEE I/O RECORD Last administered on 03/03/19at 21:29; Start 03/03/19 at 05:45 Etomidate (Amidate) 20 mg STK-MED ONCE IV ; Start 03/03/19 at 05:44; Stop 03/03/19 at 05:45; Status DC Succinylcholine Chloride (Anectine) 200 mg STK-MED ONCE .ROUTE ; Start 03/03/19 at 05:45; Stop 03/03/19 at 05:46; Status DC Propofol 100 ml @ As Directed STK-MED ONCE IV ; Start 03/03/19 at 06:16; Stop 03/03/19 at 06:17; Status DC Propofol 100 ml @ 1.313 mls/ hr CONT PRN IV SEE I/O RECORD Last administered on 03/04/19at 10:43; Start 03/03/19 at 06:30 Midazolam HCl 100 ml @ 5 mls/hr CONT PRN IV SEE I/O RECORD; Start 03/03/19 at 07:00 Chlorhexidine Gluconate (Peridex) 15 ml BID MM Last administered on 03/04/19at 07:55; Start 03/03/19 at 09:00 Artificial Tears (Artificial Tears) 1 drop PRN Q1HR PRN OU DRY EYE; Start 03/03/19 at 07:00; Status UNV Ketotifen Fumarate (Zaditor) 1 drop DAILY PRN OU ITCHING Last administered on 03/04/19at 07:55; Start 03/03/19 at 10:45 Heparin Sodium (Porcine) (Heparin Sodium) 5,000 unit Q8HRS SQ Last administered on 03/03/19at 21:28; Start 03/03/19 at 22:00; Stop 03/04/19 at 12:48; Status DC Iodixanol (Visipaque 320) 100 ml STK-MED ONCE .ROUTE ; Start 03/03/19 at 15:19; Stop 03/03/19 at 15:20; Status DC Lidocaine HCl (Xylocaine-Mpf 1% 2ml Vial) 2 ml STK-MED ONCE .ROUTE ; Start 03/03/19 at 15:19; Stop 03/03/19 at 15:20; Status DC Heparin Sodium/ Sodium Chloride 1,000 ml @ As Directed STK-MED ONCE .ROUTE ; Start 03/03/19 at 15:19; Stop 03/03/19 at 15:20; Status DC Heparin Sodium (Porcine) (Heparin Sodium) 10,000 unit STK-MED ONCE .ROUTE ; Start 03/03/19 at 15:46; Stop 03/03/19 at 15:47; Status DC Verapamil HCl (Verapamil) 5 mg STK-MED ONCE .ROUTE ; Start 03/03/19 at 15:46; Stop 03/03/19 at 15:47; Status DC Nitroglycerin (Nitroglycerin) 200 mcg STK-MED ONCE .ROUTE ; Start 03/03/19 at 15:47; Stop 03/03/19 at 15:48; Status DC Lidocaine HCl (Lidocaine 1% 20ml Vial) 20 ml STK-MED ONCE .ROUTE ; Start 03/03/19 at 15:56; Stop 03/03/19 at 15:57; Status DC Nitroglycerin (Nitroglycerin) 200 mcg STK-MED ONCE .ROUTE ; Start 03/03/19 at 16:11; Stop 03/03/19 at 16:12; Status DC Iodixanol (Visipaque 320) 100 ml STK-MED ONCE .ROUTE ; Start 03/03/19 at 16:49; Stop 03/03/19 at 16:50; Status DC Heparin Sodium/ Sodium Chloride (HEPARIN for ARTERIAL LINE FLUSH) 1,000 unit 1X ONCE IART Last administered on 03/03/19at 17:00; Start 03/03/19 at 17:00; Stop 03/03/19 at 17:02; Status DC Heparin Sodium/ Sodium Chloride (HEPARIN for ARTERIAL LINE FLUSH) 1,000 unit 1X ONCE IART Last administered on 03/03/19at 17:00; Start 03/03/19 at 17:00; Stop 03/03/19 at 17:02; Status DC Iodixanol (Visipaque 320) 100 ml 1X ONCE IART Last administered on 03/03/19at 17:00; Start 03/03/19 at 17:00; Stop 03/03/19 at 17:02; Status DC Heparin Sodium (Porcine) (Heparin Sodium) 6,500 unit 1X ONCE IV Last administered on 03/03/19at 17:00; Start 03/03/19 at 17:00; Stop 03/03/19 at 17:02; Status DC Lidocaine HCl (Lidocaine 1% 20ml Vial) 20 ml 1X ONCE INJ Last administered on 03/03/19at 17:00; Start 03/03/19 at 17:00; Stop 03/03/19 at 17:02; Status DC Ticagrelor (Brilinta) 90 mg STK-MED ONCE .ROUTE ; Start 03/03/19 at 17:02; Stop 03/03/19 at 17:03; Status DC Heparin Sodium/ Sodium Chloride 500 ml @ As Directed STK-MED ONCE .ROUTE ; Start 03/03/19 at 17:04; Stop 03/03/19 at 17:05; Status DC Ticagrelor (Brilinta) 180 mg 1X ONCE GT Last administered on 03/03/19at 17:15; Start 03/03/19 at 17:15; Stop 03/03/19 at 17:16; Status DC Lidocaine HCl (Lidocaine 2% Viscous) 100 ml PRN 1X PRN MM MOUTH PAIN Last ad ministered on 03/04/19at 10:50; Start 03/04/19 at 10:45; Stop 03/05/19 at 10:44 Lidocaine HCl (Lidocaine 1% 20ml Vial) 20 ml PRN 1X PRN INJ SEE COMMENTS Last administered on 03/04/19at 10:50; Start 03/04/19 at 10:45; Stop 03/05/19 at 10:44 Ticagrelor (Brilinta) 90 mg BID PO Last administered on 03/04/19at 13:16; Start 03/04/19 at 13:30 Potassium Chloride/Water 100 ml @ 100 mls/hr Q1H IV Last administered on 03/04/19at 14:09; Start 03/04/19 at 14:30; Stop 03/04/19 at 15:29 Active Scripts Active Reported Amlodipine Besylate 10 Mg Tablet 10 Mg PO DAILY Tramadol Hcl 50 Mg Tablet 50 Mg PO Q4H PRN Fish Oil 1,000 Mg Capsule ([place]-3 Fatty Acids/Fish Oil) 1 Each Capsule 1 Each PO Vitamin D3 (Cholecalciferol (Vitamin D3)) 5,000 Unit Capsule 5,000 Unit PO Acetaminophen 500 Mg Tablet 500 Mg PO Aspir 81 (Aspirin) 81 Mg Tablet. 81 Mg PO Hydrochlorothiazide Tablet (Hydrochlorothiazide) 25 Mg Tablet 25 Mg PO DAILY Pravastatin Sodium 40 Mg Tablet 40 Mg PO DAILY Miralax (Polyethylene Glycol 3350) 17 Gm Powd.pack 1 Pkt PO DAILY [fiber] Temazepam 30 Mg Capsule 30 Mg PO HS PRN Cozaar (Losartan Potassium) 100 Mg Tablet 100 Mg PO DAILY Vitals/I & O Vital Sign - Last 24 Hours 03/03/19 03/03/19 03/03/19 03/03/19 15:00 15:35 16:05 17:20 Temp 98.2 98.2 Pulse 74 77 Resp 16 16 B/P (MAP) 115/56 (75) 100/53 (69) Pulse Ox 100 100 100 O2 Delivery Ventilator Mechanical Ventilator Ventilator Ventilator 03/03/19 03/03/19 03/03/19 03/03/19 17:45 17:51 19:00 19:34 Pulse 73 68 Resp 16 16 B/P (MAP) 130/50 (76) 108/44 (65) Pulse Ox 100 100 100 100 O2 Delivery Ventilator Ventilator Ventilator Ventilator 03/03/19 03/03/19 03/03/19 03/03/19 20:00 20:00 21:00 22:00 Temp 97.8 97.8 Pulse 68 68 70 Resp 16 16 16 B/P (MAP) 108/44 (65) 110/40 (63) 118/42 (67) Pulse Ox 100 100 100 O2 Delivery Ventilator Mechanical Ventilator Ventilator Ventilator 03/03/19 03/03/19 03/03/19 03/04/19 23:00 23:10 23:45 00:00 Temp 98.2 98.2 Pulse 70 74 Resp 16 16 B/P (MAP) 110/40 (63) 138/46 (76) 114/36 (62) Pulse Ox 100 100 100 O2 Delivery Ventilator Ventilator Ventilator 03/04/19 03/04/19 03/04/19 03/04/19 00:00 01:00 02:00 02:15 Pulse 82 79 Resp 16 16 B/P (MAP) 134/42 (72) 115/36 (62) 84/20 (41) Pulse Ox 100 97 O2 Delivery Mechanical Ventilator Ventilator Ventilator 03/04/19 03/04/19 03/04/19 03/04/19 02:30 03:00 03:05 04:00 Temp 98.4 98.4 Pulse 86 81 Resp 17 16 B/P (MAP) 116/34 (61) 126/34 (64) 139/48 (78) Pulse Ox 99 100 100 O2 Delivery Ventilator Ventilator Ventilator 03/04/19 03/04/19 03/04/19 03/04/19 04:00 05:00 06:00 07:00 Pulse 75 72 Resp 16 16 B/P (MAP) 113/35 (61) 99/31 (53) 123/35 (64) Pulse Ox 100 100 O2 Delivery Mechanical Ventilator Ventilator Ventilator 03/04/19 03/04/19 03/04/19 03/04/19 07:00 07:41 07:47 08:01 Temp 98.7 98.7 Pulse 77 Resp 16 B/P (MAP) 99/49 (66) 133/37 (69) Pulse Ox 100 100 O2 Delivery Ventilator Mechanical Ventilator Ventilator 03/04/19 03/04/19 03/04/19 03/04/19 08:01 08:15 08:16 08:17 Pulse 84 84 84 84 Resp 16 B/P (MAP) 89/46 (60) 94/50 (65) 142/49 (80) Pulse Ox 100 O2 Delivery Ventilator 03/04/19 03/04/19 03/04/19 03/04/19 08:25 08:30 08:35 08:40 Pulse 84 84 84 82 Resp 16 16 16 16 B/P (MAP) 88/48 (61) 87/56 (66) 87/48 (61) 94/53 (67) Pulse Ox 100 100 100 100 O2 Delivery Ventilator Ventilator Ventilator Ventilator 03/04/19 03/04/19 03/04/19 03/04/19 08:45 09:00 09:15 09:39 Pulse 81 73 73 Resp 16 16 16 B/P (MAP) 101/53 (69) 100/46 (64) 73/39 (50) Pulse Ox 100 100 100 100 O2 Delivery Ventilator Ventilator Ventilator Ventilator 03/04/19 03/04/19 03/04/19 03/04/19 09:45 10:00 11:00 11:16 Temp 98.2 98.2 Pulse 78 81 84 83 Resp 18 18 18 16 B/P (MAP) 98/44 (62) 78/41 (53) 113/69 (84) 98/50 (66) Pulse Ox 100 100 100 100 O2 Delivery Ventilator Ventilator Ventilator Ventilator 03/04/19 03/04/19 03/04/19 03/04/19 11:41 12:00 12:00 13:00 Pulse 94 96 Resp 18 24 B/P (MAP) 98/55 (69) 102/58 (73) Pulse Ox 98 100 97 O2 Delivery Ventilator Mechanical Ventilator Ventilator Ventilator 03/04/19 14:00 Pulse 100 Resp 22 B/P (MAP) 105/68 (80) Pulse Ox 97 O2 Delivery Nasal Cannula O2 Flow Rate 2.0 Intake and Output 03/03/19 03/03/19 03/04/19 15:00 23:00 07:00 Intake Total 150 ml 406 ml 902 ml Output Total 270 ml 300 ml 395 ml Balance -120 ml 106 ml 507 ml JUNG AYALA III DO March 04, 2019 14:41
--- NOTE | 2019-03-04 15:00 | NUR ---
1430 pt had a large soft brown colored bowel movement. pt compliance monitor showing afib 130 to 140. attempting to call cardiology historic interpreter. bp 94/56. o2 sat 96%. pt cleansed of stool and rotated to left side. pt c/o chest pain with movement. call placed to dr lazo for pain med IV since pt unable to swallow oral.
[2019-03-04] MEDS ORDERED: DIGOXIN IV 500 MCG/2 ML AMPUL. IV ONE (15:15)
--- NOTE | 2019-03-04 15:30 | NUR ---
pt given digoxin 500 mcg iv at 1524 as ordered by rosalinda zapien. pt receiving iv kcl as ordered. pt appears anxious. rr 30. call placed again to dr lazo for pain med.
[2019-03-04] MEDS ORDERED: METOPROLOL TARTRATE 5 MG/5 ML VIAL. IVP ONE (15:45)
[2019-03-04] MEDS ORDERED: FUROSEMIDE 20 MG/2 ML VIAL. IVP ONE (15:45)
--- NOTE | 2019-03-04 15:50 | NUR ---
pt continues to be short of breath using accessory muscles. rr30 bp 113/59 on left arm. pt appears in distress. lungs auscultated coarse with extra noise from throat. fitness coach continues to show afib 120. called cardiology rosalinda zapien. order received to give lasix 20mg and then lopressor if no result from lasix. 1545 lasix 20 mg iv. pt now resting quietly rr is 27. pt agrees that she feels much better. a-fib 105.
[2019-03-04] MEDS: fentaNYL PF VIAL 100 MCG/2 ML VIAL IV PRN ×2 (16:04→17:55)
--- NOTE | 2019-03-04 16:15 | NUR ---
dr lazo returned call. pt given fentanyl 25 mcg iv for pain. pt now rating pain a 5 out of 10. rr 25. without distress. rehab care assistant continues to show afib 110. dr han notified. order received for prn bipap.
[2019-03-04] MEDS ORDERED: METOPROLOL TARTRATE 5 MG/5 ML VIAL. IVP PRN (18:45)
[2019-03-04] MEDS: METOPROLOL TART IMMED RELEASE 25 MG TABLET. PO SCH (19:00)
[2019-03-04] MEDS: TEMAZEPAM 15 MG CAPSULE PO PRN (21:11)
[2019-03-04] MEDS: ATORVASTATIN CALCIUM 20 MG TABLET PO SCH (21:11)
[2019-03-04] MEDS: traMADol 50 MG TABLET PO PRN (21:11)
[2019-03-05] VITALS (19 sets, daily range): BP systolic 105–134; BP diastolic 46–67
[2019-03-05] MEDS ORDERED: DIGOXIN IV 500 MCG/2 ML AMPUL. IV ONE
[2019-03-05] MEDS: PIPERACILLIN/TAZOBACTAM 2.25 GM in IV NORMAL SALINE 50ML 50 ML IV SCH ×5 (00:05→23:22)
[2019-03-05] MEDS: ALBUTEROL SULFATE 2.5 MG/3 ML NEBU. NEB PRN (00:46)
[2019-03-05] MEDS: METOPROLOL TART IMMED RELEASE 25 MG TABLET. PO SCH ×5 (02:13→23:22)
[2019-03-05] MEDS: fentaNYL PF VIAL 100 MCG/2 ML VIAL IV PRN ×2 (02:19→11:45)
[2019-03-05] MEDS: traMADol 50 MG TABLET PO PRN ×3 (03:13→21:53)
[2019-03-05] MEDS: ACETAMINOPHEN 325 MG TABLET. PO PRN (04:08)
[2019-03-05 06:19] LABS: BASO # 0.1 x10^3/uL (0.0-0.2); BASO % 1 % (0-3); EOS # 0.1 x10^3/uL (0.0-0.7); EOS % 1 % (0-3); HEMATOCRIT 21.9 % (36.0-47.0); HEMOGLOBIN 7.3 g/dL (12.0-15.5); LYMPH # 1.3 x10^3/uL (1.0-4.8); LYMPH % 10 % (24-48); MEAN CORPUSCULAR HEMOGLOBIN 32 pg (25-35); MEAN CORPUSCULAR HGB CONC 33 g/dL (31-37); MEAN CORPUSCULAR VOLUME 96 fL (79-100); MONO # 0.9 x10^3/uL (0.0-1.1); MONO % 7 % (0-9); NEUT # 10.1 x10^3uL (1.8-7.7); NEUT % 81 % (31-73); PLATELET COUNT 332 x10^3/uL (140-400); RED BLOOD COUNT 2.28 x10^6/uL (3.50-5.40); RED CELL DISTRIBUTION WIDTH 14.2 % (11.5-14.5); WHITE BLOOD COUNT 12.5 x10^3/uL (4.0-11.0)
[2019-03-05 06:40] LABS: CALCIUM 8.6 mg/dL (8.5-10.1); CREATININE 1.5 mg/dL (0.6-1.0); GFR 39.8; POTASSIUM 3.4 mmol/L (3.5-5.1)
--- NOTE | 2019-03-05 07:12 | PDOC ---
Infectious Disease Note Subjective Subjective Has a little chest discomfort and occ cough No F/C/S/N/v/d/SOA No fevers last 24 hours ROS ROS o/w neg Vital Sign Vital Signs Vital Signs Date Time Temp Pulse Resp B/P (MAP) Pulse Ox O2 Delivery O2 Flow Rate FiO2 03/05/19 06:08 71 111/60 03/05/19 06:00 21 100 Nasal Cannula 2.0 03/05/19 04:00 98.1 98.1 Physical Exam PHYSICAL EXAM GENERAL: Alert and NAD. Coop HEENT: Pupils equally round, small. Normal conjunctivae. OC/Op - clear NECK: Supple. LUNGS: CTA HEART: S1 and S2. ABDOMEN: Soft, NT. No guard/rebound. mild distention : Leach in place EXTREMITIES: No gross edema or cyanosis. SKIN: Warm without generalized rash. NEUROLOGIC: Answers questions and follows commands RUE-PICC (02/25) without signs of any complications. Right groin line is clean Labs Lab Laboratory Tests Test 03/04/19 08:10 03/04/19 12:50 03/04/19 13:10 03/05/19 06:00 O2 Saturation 96 % (92-99) 96 % (92-99) Arterial Blood pH 7.48 (7.35-7.45) 7.48 (7.35-7.45) Arterial Blood pCO2 at Patient Temp 30 mmHg (35-46) 31 mmHg (35-46) Arterial Blood pO2 at Patient Temp 85 mmHg (65-108) 87 mmHg (65-108) Arterial Blood HCO3 22 mmol/L (21-28) 23 mmol/L (21-28) Arterial Blood Base Excess -1 mmol/L (-3-3) 0 mmol/L (-3-3) FiO2 40 40 White Blood Count 12.1 x10^3/uL (4.0-11.0) 12.5 x10^3/uL (4.0-11.0) Red Blood Count 2.72 x10^6/uL (3.50-5.40) 2.28 x10^6/uL (3.50-5.40) Hemoglobin 8.6 g/dL (12.0-15.5) 7.3 g/dL (12.0-15.5) Hematocrit 26.0 % (36.0-47.0) 21.9 % (36.0-47.0) Mean Corpuscular Volume 95 fL (79-100) 96 fL (79-100) Mean Corpuscular Hemoglobin 32 pg (25-35) 32 pg (25-35) Mean Corpuscular Hemoglobin Concent 33 g/dL (31-37) 33 g/dL (31-37) Red Cell Distribution Width 14.4 % (11.5-14.5) 14.2 % (11.5-14.5) Platelet Count 339 x10^3/uL (140-400) 332 x10^3/uL (140-400) Neutrophils (%) (Auto) 81 % (31-73) Lymphocytes (%) (Auto) 10 % (24-48) Monocytes (%) (Auto) 7 % (0-9) Eosinophils (%) (Auto) 1 % (0-3) Basophils (%) (Auto) 1 % (0-3) Neutrophils # (Auto) 10.1 x10^3uL (1.8-7.7) Lymphocytes # (Auto) 1.3 x10^3/uL (1.0-4.8) Monocytes # (Auto) 0.9 x10^3/uL (0.0-1.1) Eosinophils # (Auto) 0.1 x10^3/uL (0.0-0.7) Basophils # (Auto) 0.1 x10^3/uL (0.0-0.2) Sodium Level 147 mmol/L (136-145) Potassium Level 3.4 mmol/L (3.5-5.1) Chloride Level 108 mmol/L (98-107) Carbon Dioxide Level 25 mmol/L (21-32) Anion Gap 14 (6-14) Blood Urea Nitrogen 27 mg/dL (7-20) Creatinine 1.5 mg/dL (0.6-1.0) Estimated GFR (Cockcroft-Gault) 39.8 Glucose Level 76 mg/dL (70-99) Calcium Level 8.6 mg/dL (8.5-10.1) Micro Microbiology 02/22/19 Blood Culture - Final, Complete NO GROWTH AFTER 5 DAYS 02/22/19 Urine Culture - Final, Complete 02/22/19 Urine Culture Result 1 (JIN) - Final, Complete 02/22/19 Antimicrobic Susceptibility - Final, Complete Objective Assessment S/p cardiac cath PCI to open left main 03/03 s/p code blue, PEA Leukocytosis, likely reactive and s/p solumedrol 03/01 - mild increase today SEBAS -mild increase today Anemia Hypotension - of pressors E. coli UTI, POA, 02/22 on Zosyn Lactic acidosis, better Pulmonary effusions Acute diastolic heart failure S/p NSTEMI Sulfa allergy Diabetes Plan Plan of Care Continue Zosyn - wean soon PICC maintenance care Monitor labs/VS Supportive care D/w nursing SERGO ETIENNE MD March 05, 2019 07:12
--- NOTE | 2019-03-05 08:10 | RAD ---
Portable chest, 03/05/2019: HISTORY: Pulmonary infiltrates Comparison is made yesterday study. The patient is rotated to the left. The right PICC is unchanged in position extending into the superior vena cava cava. The ET tube and NG tube have been removed. The heart is enlarged. There is extensive calcific plaquing of the aorta. There are ongoing bilateral pulmonary infiltrates, right greater than left. Hazy basilar opacities suggest a component of pleural fluid. Allowing for differences in patient positioning, the pulmonary findings are similar to yesterday's exam. IMPRESSION: Ongoing bilateral pulmonary infiltrates and probable small pleural effusions, similar to yesterday's exam. Electronically signed by: Aubrey Kumar MD (03/05/2019 8:07 AM) [facility]
--- NOTE | 2019-03-05 08:35 | PDOC ---
PULMONARY PROGRESS NOTES Subjective EXTUBATED 03/04, ON CANULA DEVELOPED A-FIB/RVR S/P PEA Vitals Vital Signs Date Time Temp Pulse Resp B/P (MAP) Pulse Ox O2 Delivery O2 Flow Rate FiO2 03/05/19 06:08 71 111/60 03/05/19 06:00 21 100 Nasal Cannula 2.0 03/05/19 04:00 98.1 98.1 General: Alert, No acute distress Lungs: Other (decrease bs) Cardiovascular: S1, S2 Abdomen: Soft Extremities: No Edema Skin: Warm, Dry Labs Laboratory Tests Test 03/03/19 17:04 03/04/19 05:40 03/04/19 08:10 03/04/19 12:50 Activated Clotting Time 213 sec (92-181) White Blood Count 10.7 x10^3/uL (4.0-11.0) 12.1 x10^3/uL (4.0-11.0) Red Blood Count 2.58 x10^6/uL (3.50-5.40) 2.72 x10^6/uL (3.50-5.40) Hemoglobin 8.2 g/dL (12.0-15.5) 8.6 g/dL (12.0-15.5) Hematocrit 24.7 % (36.0-47.0) 26.0 % (36.0-47.0) Mean Corpuscular Volume 96 fL (79-100) 95 fL (79-100) Mean Corpuscular Hemoglobin 32 pg (25-35) 32 pg (25-35) Mean Corpuscular Hemoglobin Concent 33 g/dL (31-37) 33 g/dL (31-37) Red Cell Distribution Width 14.1 % (11.5-14.5) 14.4 % (11.5-14.5) Platelet Count 313 x10^3/uL (140-400) 339 x10^3/uL (140-400) Neutrophils (%) (Auto) 76 % (31-73) Lymphocytes (%) (Auto) 15 % (24-48) Monocytes (%) (Auto) 7 % (0-9) Eosinophils (%) (Auto) 2 % (0-3) Basophils (%) (Auto) 1 % (0-3) Neutrophils # (Auto) 8.1 x10^3uL (1.8-7.7) Lymphocytes # (Auto) 1.6 x10^3/uL (1.0-4.8) Monocytes # (Auto) 0.7 x10^3/uL (0.0-1.1) Eosinophils # (Auto) 0.2 x10^3/uL (0.0-0.7) Basophils # (Auto) 0.1 x10^3/uL (0.0-0.2) Sodium Level 144 mmol/L (136-145) Potassium Level 3.4 mmol/L (3.5-5.1) Chloride Level 105 mmol/L (98-107) Carbon Dioxide Level 25 mmol/L (21-32) Anion Gap 14 (6-14) Blood Urea Nitrogen 30 mg/dL (7-20) Creatinine 1.4 mg/dL (0.6-1.0) Estimated GFR (Cockcroft-Gault) 43.1 Glucose Level 128 mg/dL (70-99) Calcium Level 8.1 mg/dL (8.5-10.1) Magnesium Level 2.0 mg/dL (1.8-2.4) O2 Saturation 96 % (92-99) Arterial Blood pH 7.48 (7.35-7.45) Arterial Blood pCO2 at Patient Temp 30 mmHg (35-46) Arterial Blood pO2 at Patient Temp 85 mmHg (65-108) Arterial Blood HCO3 22 mmol/L (21-28) Arterial Blood Base Excess -1 mmol/L (-3-3) FiO2 40 Test 03/04/19 13:10 03/05/19 06:00 O2 Saturation 96 % (92-99) Arterial Blood pH 7.48 (7.35-7.45) Arterial Blood pCO2 at Patient Temp 31 mmHg (35-46) Arterial Blood pO2 at Patient Temp 87 mmHg (65-108) Arterial Blood HCO3 23 mmol/L (21-28) Arterial Blood Base Excess 0 mmol/L (-3-3) FiO2 40 White Blood Count 12.5 x10^3/uL (4.0-11.0) Red Blood Count 2.28 x10^6/uL (3.50-5.40) Hemoglobin 7.3 g/dL (12.0-15.5) Hematocrit 21.9 % (36.0-47.0) Mean Corpuscular Volume 96 fL (79-100) Mean Corpuscular Hemoglobin 32 pg (25-35) Mean Corpuscular Hemoglobin Concent 33 g/dL (31-37) Red Cell Distribution Width 14.2 % (11.5-14.5) Platelet Count 332 x10^3/uL (140-400) Neutrophils (%) (Auto) 81 % (31-73) Lymphocytes (%) (Auto) 10 % (24-48) Monocytes (%) (Auto) 7 % (0-9) Eosinophils (%) (Auto) 1 % (0-3) Basophils (%) (Auto) 1 % (0-3) Neutrophils # (Auto) 10.1 x10^3uL (1.8-7.7) Lymphocytes # (Auto) 1.3 x10^3/uL (1.0-4.8) Monocytes # (Auto) 0.9 x10^3/uL (0.0-1.1) Eosinophils # (Auto) 0.1 x10^3/uL (0.0-0.7) Basophils # (Auto) 0.1 x10^3/uL (0.0-0.2) Sodium Level 147 mmol/L (136-145) Potassium Level 3.4 mmol/L (3.5-5.1) Chloride Level 108 mmol/L (98-107) Carbon Dioxide Level 25 mmol/L (21-32) Anion Gap 14 (6-14) Blood Urea Nitrogen 27 mg/dL (7-20) Creatinine 1.5 mg/dL (0.6-1.0) Estimated GFR (Cockcroft-Gault) 39.8 Glucose Level 76 mg/dL (70-99) Calcium Level 8.6 mg/dL (8.5-10.1) Laboratory Tests Test 03/04/19 12:50 03/04/19 13:10 03/05/19 06:00 White Blood Count 12.1 x10^3/uL (4.0-11.0) 12.5 x10^3/uL (4.0-11.0) Red Blood Count 2.72 x10^6/uL (3.50-5.40) 2.28 x10^6/uL (3.50-5.40) Hemoglobin 8.6 g/dL (12.0-15.5) 7.3 g/dL (12.0-15.5) Hematocrit 26.0 % (36.0-47.0) 21.9 % (36.0-47.0) Mean Corpuscular Volume 95 fL (79-100) 96 fL (79-100) Mean Corpuscular Hemoglobin 32 pg (25-35) 32 pg (25-35) Mean Corpuscular Hemoglobin Concent 33 g/dL (31-37) 33 g/dL (31-37) Red Cell Distribution Width 14.4 % (11.5-14.5) 14.2 % (11.5-14.5) Platelet Count 339 x10^3/uL (140-400) 332 x10^3/uL (140-400) O2 Saturation 96 % (92-99) Arterial Blood pH 7.48 (7.35-7.45) Arterial Blood pCO2 at Patient Temp 31 mmHg (35-46) Arterial Blood pO2 at Patient Temp 87 mmHg (65-108) Arterial Blood HCO3 23 mmol/L (21-28) Arterial Blood Base Excess 0 mmol/L (-3-3) FiO2 40 Neutrophils (%) (Auto) 81 % (31-73) Lymphocytes (%) (Auto) 10 % (24-48) Monocytes (%) (Auto) 7 % (0-9) Eosinophils (%) (Auto) 1 % (0-3) Basophils (%) (Auto) 1 % (0-3) Neutrophils # (Auto) 10.1 x10^3uL (1.8-7.7) Lymphocytes # (Auto) 1.3 x10^3/uL (1.0-4.8) Monocytes # (Auto) 0.9 x10^3/uL (0.0-1.1) Eosinophils # (Auto) 0.1 x10^3/uL (0.0-0.7) Basophils # (Auto) 0.1 x10^3/uL (0.0-0.2) Sodium Level 147 mmol/L (136-145) Potassium Level 3.4 mmol/L (3.5-5.1) Chloride Level 108 mmol/L (98-107) Carbon Dioxide Level 25 mmol/L (21-32) Anion Gap 14 (6-14) Blood Urea Nitrogen 27 mg/dL (7-20) Creatinine 1.5 mg/dL (0.6-1.0) Estimated GFR (Cockcroft-Gault) 39.8 Glucose Level 76 mg/dL (70-99) Calcium Level 8.6 mg/dL (8.5-10.1) Medications Active Scripts Medications Dose Route/Sig Max Daily Dose Days Date Category Amlodipine Besylate 10 Mg Tablet 10 Mg PO DAILY 09/23/16 Reported Tramadol Hcl 50 Mg Tablet 50 Mg PO Q4H PRN 04/07/14 Reported Fish Oil 1,000 Mg Capsule ([place]-3 Fatty Acids/Fish Oil) 1 Each Capsule 1 Each PO 04/07/14 Reported Vitamin D3 (Cholecalciferol (Vitamin D3)) 5,000 Unit Capsule 5,000 Unit PO 04/07/14 Reported Acetaminophen 500 Mg Tablet 500 Mg PO 04/07/14 Reported Aspir 81 (Aspirin) 81 Mg Tablet.dr 81 Mg PO 04/07/14 Reported Hydrochlorothiazide Tablet (Hydrochlorothiazide) 25 Mg Tablet 25 Mg PO DAILY 04/07/14 Reported Pravastatin Sodium 40 Mg Tablet 40 Mg PO DAILY 04/07/14 Reported Miralax (Polyethylene Glycol 3350) 17 Gm Powd.pack 1 Pkt PO DAILY 04/07/14 Reported [fiber] 04/07/14 Reported Temazepam 30 Mg Capsule 30 Mg PO HS PRN 04/07/14 Reported Cozaar (Losartan Potassium) 100 Mg Tablet 100 Mg PO DAILY 04/07/14 Reported Comments cxr 03/05 bilateral infiltrates, no change Impression . IMPRESSION: 1. Acute hypoxemic respiratory failure.extubated 03/04 2. Persistent bilateral infiltrates ,suspect combination of acute on chronic diastolic heart failure./pneumonia. No alveolar Hr . s/p [place], diffuse erythema of airway 3. Acute diastolic heart failure. 4. Non-ST segment elevation myocardial infarction. 5. Recent sepsis and hypotension, improved. 6. Peripheral vascular disease, status post previous fem-pop and carotid endarterectomy. 7. Valvular heart disease. 8/ S/P CARDIOPULMONARY ARREST IN HOUSE 03/02 9. s/p cath, LM stent, increase filling pressures CT Impression: No pulmonary arterial thromboembolic disease although evaluation may be limited in regions of bibasilar lower lobe passive atelectasis due to moderate-sized bilateral pleural effusions. Centrilobular emphysema. Plan . NASAL CANULA FOLLOW BRONCH CULTURES D/W RN MONITOR HB FOLLOW CARD REC DIURESE PER CARD PROCALCITONIN 1.18 NOT NOT VERY HIGH NEB D/W FAMILY ABX MAURI CHAPA MD March 05, 2019 08:35
[2019-03-05] MEDS: TICAGRELOR 90 MG TABLET. PO SCH ×2 (08:45→21:53)
[2019-03-05] MEDS: PANTOPRAZOLE 40 MG TABLET.DR. PO SCH (08:45)
[2019-03-05] MEDS: ASPIRIN ENTERIC COATED 81 MG TABLET.DR. PO SCH (08:45)
[2019-03-05] MEDS: DICLOFENAC SODIUM 1% TOPICAL GEL 100GM TUBE. TP SCH ×2 (08:46→21:00)
[2019-03-05] MEDS: POLYETHYLENE GLYCOL 3350 17 GM PACKET. PO SCH ×2 (09:00→21:00)
[2019-03-05] MEDS ORDERED: FUROSEMIDE 40 MG/4 ML VIAL. IVP ONE (09:00)
--- NOTE | 2019-03-05 10:21 | PDOC ---
PROGRESS NOTES Chief Complaint Chief Complaint Status post CODE BLUE 03/04 back in ICU EXTUBATED 03/04 Recent sepsis with resolving hypotension Sudden dyspnea: mild CHF NSTEMI: PAD Hx of HTN Valvular insufficiency: Mild AI, mild to mod MR, Mild TR Mild Colonic ileus A-FIB RVR moderate pulmonary hypertension. The PA pressure was estimated at 55 mmHg. HYPOKALEMIA S/p cardiac cath PCI to open left main 03/03 s/p code blue, PEA Leukocytosis, likely reactive and s/p solumedrol 03/01 - SEBAS -mild increase Anemia Hypotension - ofF pressors E. coli UTI, POA, 02/22 on Zosyn Lactic acidosis, Pulmonary effusions 43 MIN CC TIME History of Present Illness History of Present Illness Patient seen and examined She is IN intensive care unit Daughter is present I discussed with her in the nurse Reviewed the code with the nurse CODE Events 2 days ago The patient became very anxious and then went into the PEA was coded for 9 minutes including compressions and intubation CARDIOLOGY FOLLOWING Vitals Vitals Vital Signs Date Time Temp Pulse Resp B/P (MAP) Pulse Ox O2 Delivery O2 Flow Rate FiO2 03/05/19 06:08 71 111/60 03/05/19 06:00 21 100 Nasal Cannula 2.0 03/05/19 04:00 98.1 98.1 Physical Exam Physical Exam GENERAL: Alert and NAD. Coop HEENT: Pupils equally round, small. Normal conjunctivae. OC/Op - clear NECK: Supple. LUNGS: CTA HEART: IRRR ABDOMEN: Soft, NT. No guard/rebound. mild distention : Leach in place EXTREMITIES: No gross edema or cyanosis. SKIN: Warm without generalized rash. NEUROLOGIC: Answers questions and follows commands RUE-PICC (02/25) without signs of any complications. Right groin line is clean General: Alert, Oriented X3, No acute distress, Other (improved appearance) Heart: Other (soft S1-S2 intermittent tachycardia) Lungs: Other (decrease bs) Abdomen: Normal bowel sounds Extremities: No clubbing, No cyanosis, No edema, Other (Decreased peripheral pulses in RUE, LUE and LLE, good pulses RLE) Skin: No rashes, No breakdown, No significant lesion Labs LABS URINE CULTURE Final Final report URINE CULTURE RES 1 Final Comment Escherichia coli, identified by an automated biochemical system. Greater than 100,000 colony forming units per mL Cefazolin <=4 ug/mL Cefazolin with an JIN <=16 predicts susceptibility to the oral agents cefaclor, cefdinir, cefpodoxime, cefprozil, cefuroxime, cephalexin, and loracarbef when used for therapy of uncomplicated urinary tract infections due to E. coli, Klebsiella pneumoniae, and Proteus mirabilis. ANTIMICROBIAL SUSCEPTIBILITY Final Comment S = Susceptible; I = Intermediate; R = Resistant P = Positive; N = Negative MICS are expressed in micrograms per mL Antibiotic RSLT#1 RSLT#2 RSLT#3 RSLT#4 Amoxicillin/Clavulanic Acid S =8 Ampicillin R>=32 Cefepime S<=0.12 Ceftriaxone S<=0.25 Cefuroxime S =4 Ciprofloxacin S =0.5 Ertapenem S<=0.12 Gentamicin R>=16 Imipenem S<=0.25 Levofloxacin S =1 Meropenem S<=0.25 Nitrofurantoin S<=16 Piperacillin/Tazobactam S<=4 Tetracycline R>=16 Tobramycin I =8 Trimethoprim/Sulfa R>=320 RIGHT VENTRICLE The right ventricle is normal size. There is normal right ventricular wall thickness. The right ventricular systolic function is normal. ATRIA The left atrium size is normal. The right atrium size is normal. The interatrial septum is intact with no evidence for an atrial septal defect or patent foramen ovale as noted on 2-D or Doppler imaging. AORTIC VALVE The aortic valve is thickened but opens well. The aortic valve is trileaflet. Doppler and Color Flow revealed trace to mild aortic regurgitation. There is no significant aortic valvular stenosis. MITRAL VALVE The mitral valve is thickened but opens well. There is no evidence of mitral valve prolapse. There is no mitral valve stenosis. Doppler and Color-flow revealed mild to moderate mitral regurgitation. TRICUSPID VALVE The tricuspid valve is normal in structure and function. Doppler and Color Flow revealed mild tricuspid regurgitation. There is moderate pulmonary hypertension. The PA pressure was estimated at 55 mmHg. There is no tricuspid valve prolapse or vegetation. PULMONIC VALVE The pulmonic valve is not well visualized. GREAT VESSELS The aortic root is normal in size. The ascending aorta is normal in size. The IVC is dilated and collapses >50% with inspiration. PERICARDIAL EFFUSION There is no evidence of significant pericardial effusion. Critical Notification Critical Value: No <Conclusion> The left ventricle is normal size. Left ventricle systolic function is low normal. The Ejection Fraction is 50-55%. There is borderline concentric left ventricular hypertrophy. There is no significant aortic valvular stenosis. Doppler and Color Flow revealed trace to mild aortic regurgitation. Doppler and Color-flow revealed mild to moderate mitral regurgitation. Doppler and Color Flow revealed mild tricuspid regurgitation. There is moderate pulmonary hypertension. The PA pressure was estimated at 55 mmHg. Signed by : Hussain Cormier MD Electronically Approved : 02/24/2019 12:34:10 The colon is distended with air and stool. Liver: Unremarkable Spleen: Unremarkable Pancreas: Unremarkable Adrenal Glands: Unremarkable Kidneys: Unremarkable There is no mass or lymphadenopathy. There is no free air. There is no free fluid. CT Pelvis with Contrast: Findings: The urinary bladder appears normal. There is no free fluid. There is no lymphadenopathy. There are exophytic fibroids arising posteriorly from the uterus. The appendix is normal. Impression: Distention the colon with air and stool suggests a mild colonic ileus. PQRS Compliance Statement: REASON: pulmonary infiltrates follow up PROCEDURE: CHEST AP ONLY Portable chest, 03/05/2019: HISTORY: Pulmonary infiltrates Comparison is made yesterday study. The patient is rotated to the left. The right PICC is unchanged in position extending into the superior vena cava cava. The ET tube and NG tube have been removed. The heart is enlarged. There is extensive calcific plaquing of the aorta. There are ongoing bilateral pulmonary infiltrates, right greater than left. Hazy basilar opacities suggest a component of pleural fluid. Allowing for differences in patient positioning, the pulmonary findings are similar to yesterday's exam. IMPRESSION: Ongoing bilateral pulmonary infiltrates and probable small pleural effusions, similar to yesterday's exam. Electronically signed by: Aubrey Kumar MD (03/05/2019 8:07 AM) [facility] DICTATED and SIGNED BY: AUBREY KUMAR MD DATE: 03/05/19 0807 Laboratory Tests Test 03/04/19 12:50 03/04/19 13:10 03/05/19 06:00 White Blood Count 12.1 x10^3/uL (4.0-11.0) 12.5 x10^3/uL (4.0-11.0) Red Blood Count 2.72 x10^6/uL (3.50-5.40) 2.28 x10^6/uL (3.50-5.40) Hemoglobin 8.6 g/dL (12.0-15.5) 7.3 g/dL (12.0-15.5) Hematocrit 26.0 % (36.0-47.0) 21.9 % (36.0-47.0) Mean Corpuscular Volume 95 fL (79-100) 96 fL (79-100) Mean Corpuscular Hemoglobin 32 pg (25-35) 32 pg (25-35) Mean Corpuscular Hemoglobin Concent 33 g/dL (31-37) 33 g/dL (31-37) Red Cell Distribution Width 14.4 % (11.5-14.5) 14.2 % (11.5-14.5) Platelet Count 339 x10^3/uL (140-400) 332 x10^3/uL (140-400) O2 Saturation 96 % (92-99) Arterial Blood pH 7.48 (7.35-7.45) Arterial Blood pCO2 at Patient Temp 31 mmHg (35-46) Arterial Blood pO2 at Patient Temp 87 mmHg (65-108) Arterial Blood HCO3 23 mmol/L (21-28) Arterial Blood Base Excess 0 mmol/L (-3-3) FiO2 40 Neutrophils (%) (Auto) 81 % (31-73) Lymphocytes (%) (Auto) 10 % (24-48) Monocytes (%) (Auto) 7 % (0-9) Eosinophils (%) (Auto) 1 % (0-3) Basophils (%) (Auto) 1 % (0-3) Neutrophils # (Auto) 10.1 x10^3uL (1.8-7.7) Lymphocytes # (Auto) 1.3 x10^3/uL (1.0-4.8) Monocytes # (Auto) 0.9 x10^3/uL (0.0-1.1) Eosinophils # (Auto) 0.1 x10^3/uL (0.0-0.7) Basophils # (Auto) 0.1 x10^3/uL (0.0-0.2) Sodium Level 147 mmol/L (136-145) Potassium Level 3.4 mmol/L (3.5-5.1) Chloride Level 108 mmol/L (98-107) Carbon Dioxide Level 25 mmol/L (21-32) Anion Gap 14 (6-14) Blood Urea Nitrogen 27 mg/dL (7-20) Creatinine 1.5 mg/dL (0.6-1.0) Estimated GFR (Cockcroft-Gault) 39.8 Glucose Level 76 mg/dL (70-99) Calcium Level 8.6 mg/dL (8.5-10.1) Assessment and Plan Assessmemt and Plan Problems Medical Problems: (1) Septic shock Status: Acute Comment Review of Relevant I have reviewed the following items ne (where applicable) has been applied. Labs Laboratory Tests Test 03/03/19 17:04 03/04/19 05:40 03/04/19 08:10 03/04/19 12:50 Activated Clotting Time 213 sec (92-181) White Blood Count 10.7 x10^3/uL (4.0-11.0) 12.1 x10^3/uL (4.0-11.0) Red Blood Count 2.58 x10^6/uL (3.50-5.40) 2.72 x10^6/uL (3.50-5.40) Hemoglobin 8.2 g/dL (12.0-15.5) 8.6 g/dL (12.0-15.5) Hematocrit 24.7 % (36.0-47.0) 26.0 % (36.0-47.0) Mean Corpuscular Volume 96 fL (79-100) 95 fL (79-100) Mean Corpuscular Hemoglobin 32 pg (25-35) 32 pg (25-35) Mean Corpuscular Hemoglobin Concent 33 g/dL (31-37) 33 g/dL (31-37) Red Cell Distribution Width 14.1 % (11.5-14.5) 14.4 % (11.5-14.5) Platelet Count 313 x10^3/uL (140-400) 339 x10^3/uL (140-400) Neutrophils (%) (Auto) 76 % (31-73) Lymphocytes (%) (Auto) 15 % (24-48) Monocytes (%) (Auto) 7 % (0-9) Eosinophils (%) (Auto) 2 % (0-3) Basophils (%) (Auto) 1 % (0-3) Neutrophils # (Auto) 8.1 x10^3uL (1.8-7.7) Lymphocytes # (Auto) 1.6 x10^3/uL (1.0-4.8) Monocytes # (Auto) 0.7 x10^3/uL (0.0-1.1) Eosinophils # (Auto) 0.2 x10^3/uL (0.0-0.7) Basophils # (Auto) 0.1 x10^3/uL (0.0-0.2) Sodium Level 144 mmol/L (136-145) Potassium Level 3.4 mmol/L (3.5-5.1) Chloride Level 105 mmol/L (98-107) Carbon Dioxide Level 25 mmol/L (21-32) Anion Gap 14 (6-14) Blood Urea Nitrogen 30 mg/dL (7-20) Creatinine 1.4 mg/dL (0.6-1.0) Estimated GFR (Cockcroft-Gault) 43.1 Glucose Level 128 mg/dL (70-99) Calcium Level 8.1 mg/dL (8.5-10.1) Magnesium Level 2.0 mg/dL (1.8-2.4) O2 Saturation 96 % (92-99) Arterial Blood pH 7.48 (7.35-7.45) Arterial Blood pCO2 at Patient Temp 30 mmHg (35-46) Arterial Blood pO2 at Patient Temp 85 mmHg (65-108) Arterial Blood HCO3 22 mmol/L (21-28) Arterial Blood Base Excess -1 mmol/L (-3-3) FiO2 40 Test 03/04/19 13:10 03/05/19 06:00 O2 Saturation 96 % (92-99) Arterial Blood pH 7.48 (7.35-7.45) Arterial Blood pCO2 at Patient Temp 31 mmHg (35-46) Arterial Blood pO2 at Patient Temp 87 mmHg (65-108) Arterial Blood HCO3 23 mmol/L (21-28) Arterial Blood Base Excess 0 mmol/L (-3-3) FiO2 40 White Blood Count 12.5 x10^3/uL (4.0-11.0) Red Blood Count 2.28 x10^6/uL (3.50-5.40) Hemoglobin 7.3 g/dL (12.0-15.5) Hematocrit 21.9 % (36.0-47.0) Mean Corpuscular Volume 96 fL (79-100) Mean Corpuscular Hemoglobin 32 pg (25-35) Mean Corpuscular Hemoglobin Concent 33 g/dL (31-37) Red Cell Distribution Width 14.2 % (11.5-14.5) Platelet Count 332 x10^3/uL (140-400) Neutrophils (%) (Auto) 81 % (31-73) Lymphocytes (%) (Auto) 10 % (24-48) Monocytes (%) (Auto) 7 % (0-9) Eosinophils (%) (Auto) 1 % (0-3) Basophils (%) (Auto) 1 % (0-3) Neutrophils # (Auto) 10.1 x10^3uL (1.8-7.7) Lymphocytes # (Auto) 1.3 x10^3/uL (1.0-4.8) Monocytes # (Auto) 0.9 x10^3/uL (0.0-1.1) Eosinophils # (Auto) 0.1 x10^3/uL (0.0-0.7) Basophils # (Auto) 0.1 x10^3/uL (0.0-0.2) Sodium Level 147 mmol/L (136-145) Potassium Level 3.4 mmol/L (3.5-5.1) Chloride Level 108 mmol/L (98-107) Carbon Dioxide Level 25 mmol/L (21-32) Anion Gap 14 (6-14) Blood Urea Nitrogen 27 mg/dL (7-20) Creatinine 1.5 mg/dL (0.6-1.0) Estimated GFR (Cockcroft-Gault) 39.8 Glucose Level 76 mg/dL (70-99) Calcium Level 8.6 mg/dL (8.5-10.1) Laboratory Tests Test 03/04/19 12:50 03/04/19 13:10 03/05/19 06:00 White Blood Count 12.1 x10^3/uL (4.0-11.0) 12.5 x10^3/uL (4.0-11.0) Red Blood Count 2.72 x10^6/uL (3.50-5.40) 2.28 x10^6/uL (3.50-5.40) Hemoglobin 8.6 g/dL (12.0-15.5) 7.3 g/dL (12.0-15.5) Hematocrit 26.0 % (36.0-47.0) 21.9 % (36.0-47.0) Mean Corpuscular Volume 95 fL (79-100) 96 fL (79-100) Mean Corpuscular Hemoglobin 32 pg (25-35) 32 pg (25-35) Mean Corpuscular Hemoglobin Concent 33 g/dL (31-37) 33 g/dL (31-37) Red Cell Distribution Width 14.4 % (11.5-14.5) 14.2 % (11.5-14.5) Platelet Count 339 x10^3/uL (140-400) 332 x10^3/uL (140-400) O2 Saturation 96 % (92-99) Arterial Blood pH 7.48 (7.35-7.45) Arterial Blood pCO2 at Patient Temp 31 mmHg (35-46) Arterial Blood pO2 at Patient Temp 87 mmHg (65-108) Arterial Blood HCO3 23 mmol/L (21-28) Arterial Blood Base Excess 0 mmol/L (-3-3) FiO2 40 Neutrophils (%) (Auto) 81 % (31-73) Lymphocytes (%) (Auto) 10 % (24-48) Monocytes (%) (Auto) 7 % (0-9) Eosinophils (%) (Auto) 1 % (0-3) Basophils (%) (Auto) 1 % (0-3) Neutrophils # (Auto) 10.1 x10^3uL (1.8-7.7) Lymphocytes # (Auto) 1.3 x10^3/uL (1.0-4.8) Monocytes # (Auto) 0.9 x10^3/uL (0.0-1.1) Eosinophils # (Auto) 0.1 x10^3/uL (0.0-0.7) Basophils # (Auto) 0.1 x10^3/uL (0.0-0.2) Sodium Level 147 mmol/L (136-145) Potassium Level 3.4 mmol/L (3.5-5.1) Chloride Level 108 mmol/L (98-107) Carbon Dioxide Level 25 mmol/L (21-32) Anion Gap 14 (6-14) Blood Urea Nitrogen 27 mg/dL (7-20) Creatinine 1.5 mg/dL (0.6-1.0) Estimated GFR (Cockcroft-Gault) 39.8 Glucose Level 76 mg/dL (70-99) Calcium Level 8.6 mg/dL (8.5-10.1) Microbiology 02/22/19 Blood Culture - Final, Complete NO GROWTH AFTER 5 DAYS 03/04/19 - Final, Complete 02/22/19 Urine Culture - Final, Complete 02/22/19 Urine Culture Result 1 (JIN) - Final, Complete 02/22/19 Antimicrobic Susceptibility - Final, Complete Medications Current Medications Sodium Chloride 1,000 ml @ 1,000 mls/hr 1X ONCE IV Last administered on 02/22/19 21:23; Start 02/22/19 at 20:45; Stop 02/22/19 at 21:44; Status DC Acetaminophen (Tylenol) 650 mg 1X ONCE PO Last administered on 02/22/19 21:22; Start 02/22/19 at 20:45; Stop 02/22/19 at 20:52; Status DC Piperacillin Sod/ Tazobactam Sod (Zosyn Per Pharmacy) 1 each PRN DAILY PRN MC SEE COMMENTS; Start 02/22/19 at 20:45; Stop 02/23/19 at 14:53; Status DC Piperacillin Sod/ Tazobactam Sod 3.375 gm/Sodium Chloride 50 ml @ 100 mls/hr ONCE ONCE IV Last administered on 02/22/19 21:23; Start 02/22/19 at 21:00; Stop 02/22/19 at 21:29; Status DC Sodium Chloride 1,000 ml @ 1,000 mls/hr 1X ONCE IV Last administered on 02/22/19at 23:44; Start 02/22/19 at 23:30; Stop 02/23/19 at 00:29; Status DC Sodium Chloride 1,000 ml @ 75 mls/hr [id number] IV Last administered on 02/23/19at 07:38; Start 02/22/19 at 23:30; Stop 02/23/19 at 08:17; Status DC Iohexol (Omnipaque 300 Mg/ml) 60 ml 1X ONCE IV Last administered on 02/23/19at 00:02; Start 02/23/19 at 00:15; Stop 02/23/19 at 00:16; Status DC Info (CONTRAST GIVEN -- Rx MONITORING) 1 each PRN DAILY PRN MC SEE COMMENTS; Start 02/23/19 at 00:15; Stop 02/25/19 at 00:14; Status DC Piperacillin Sod/ Tazobactam Sod 2.25 gm/Sodium Chloride 50 ml @ 100 mls/hr Q6HRS IV Last administered on 02/23/19at 12:26; Start 02/23/19 at 06:00; Stop 02/23/19 at 14:34; Status DC Sodium Chloride 1,000 ml @ 1,000 mls/hr 1X ONCE IV ; Start 02/23/19 at 01:00; Stop 02/23/19 at 01:45; Status DC Sodium Chloride 500 ml @ 500 mls/hr 1X ONCE IV Last administered on 02/23/19at 02:07; Start 02/23/19 at 02:00; Stop 02/23/19 at 02:59; Status DC Norepinephrine Bitartrate 250 ml @ 0 mls/hr 1X ONCE IV ; Start 02/23/19 at 02:00; Stop 02/23/19 at 02:01; Status DC Sodium Chloride 500 ml @ 500 mls/hr 1X ONCE IV Last administered on 02/23/19at 06:10; Start 02/23/19 at 02:00; Stop 02/23/19 at 02:59; Status DC Norepinephrine Bitartrate 250 ml @ 1.875 mls/ hr CONT PRN IV SEE I/O RECORD Last administered on 02/26/19at 09:00; Start 02/23/19 at 03:15; Stop 02/27/19 at 14:17; Status DC Ondansetron HCl (Zofran) 4 mg PRN Q6HRS PRN IV NAUSEA/VOMITING Last administered on 02/24/19at 23:21; Start 02/23/19 at 03:15 Iohexol (Omnipaque 300 Mg/ml) 100 ml STK-MED ONCE .ROUTE ; Start 02/23/19 at 04:24; Stop 02/23/19 at 04:25; Status DC Sodium Chloride 500 ml @ 500 mls/hr 1X ONCE IV Last administered on 02/23/19at 08:28; Start 02/23/19 at 07:45; Stop 02/23/19 at 08:44; Status DC Acetaminophen (Tylenol) 650 mg PRN Q6HRS PRN PO MILD PAIN / TEMP Last administered on 03/05/19 04:08; Start 02/23/19 at 08:15 Ringer's Solution 1,000 ml @ 100 mls/hr Q10H IV Last administered on 02/27/19 23:15; Start 02/23/19 at 08:30; Stop 02/28/19 at 11:55; Status DC Ringer's Solution 500 ml @ 500 mls/hr 1X ONCE IV Last administered on 02/23/19 09:23; Start 02/23/19 at 09:15; Stop 02/23/19 at 10:14; Status DC Dopamine HCl/ Dextrose 250 ml @ 5.749 mls/ hr CONT PRN IV SEE I/O RECORD Last administered on 02/25/19 05:11; Start 02/23/19 at 12:15 Tramadol HCl (Ultram) 50 mg PRN Q6HRS PRN PO MODERATE-SEVERE PAIN Last administered on 03/05/19 03:13; Start 02/23/19 at 12:30 Heparin Sodium (Porcine) (Heparin Sodium) 4,000 unit 1X ONCE IV Last administered on 02/23/19 13:30; Start 02/23/19 at 13:00; Stop 02/23/19 at 13:01; Status DC Heparin Sodium/ Dextrose 500 ml @ 0 mls/hr CONT PRN IV SEE I/O RECORD Last administered on 02/25/19 05:12; Start 02/23/19 at 13:00; Stop 02/26/19 at 13:01; Status DC Heparin Sodium (Porcine) (Heparin Sodium) 1,900 unit PRN Q6HRS PRN IV FOR UFH LEVEL LESS THAN 0.2 Last administered on 02/25/19 09:35; Start 02/23/19 at 13:00; Stop 02/26/19 at 13:01; Status DC Polyethylene Glycol (miraLAX PACKET) 17 gm PRN BID PRN PO CONSTIPATION Last administered on 02/23/19 14:38; Start 02/23/19 at 13:15; Stop 02/23/19 at 14:59; Status DC Info (Anti-Coagulation Monitoring By Pharmacy) 1 each PRN DAILY PRN MC SEE COMMENTS Last administered on 02/26/19at 08:00; Start 02/23/19 at 13:30; Stop 02/26/19 at 13:50; Status DC Temazepam (Restoril) 15 mg PRN QHS PRN PO INSOMNIA Last administered on 03/04/19at 21:11; Start 02/23/19 at 14:45 Piperacillin Sod/ Tazobactam Sod 2.25 gm/Sodium Chloride 50 ml @ 100 mls/hr Q6HRS IV ; Start 02/23/19 at 18:00; Stop 02/23/19 at 18:00; Status DC Polyethylene Glycol (miraLAX PACKET) 17 gm BID PO Last administered on 03/04/19at 07:54; Start 02/23/19 at 21:00 Multi-Ingredient Ointment (Analgesic [place]) 1 mara PRN QID PRN TP MUSCLE PAIN Last administered on 02/27/19 09:18; Start 02/23/19 at 18:00 Pantoprazole Sodium (Protonix) 40 mg DAILYAC PO Last administered on 03/05/19 08:45; Start 02/24/19 at 17:30 Aspirin (Ecotrin) 325 mg 1X ONCE PO Last administered on 02/25/19 09:31; Start 02/25/19 at 09:15; Stop 02/25/19 at 09:16; Status DC Aspirin (Ecotrin) 81 mg DAILYWBKFT PO Last administered on 03/05/19 08:45; Start 02/26/19 at 08:00 Potassium Chloride (Klor-Con) 40 meq 1X ONCE PO Last administered on 02/25/19 09:32; Start 02/25/19 at 09:15; Stop 02/25/19 at 09:16; Status DC Magnesium Sulfate/ Dextrose 100 ml @ 25 mls/hr 1X ONCE IV Last administered on 02/25/19at 11:49; Start 02/25/19 at 11:30; Stop 02/25/19 at 15:29; Status DC Piperacillin Sod/ Tazobactam Sod (Zosyn Per Pharmacy) 1 each PRN DAILY PRN MC SEE COMMENTS; Start 02/25/19 at 16:45 Piperacillin Sod/ Tazobactam Sod 2.25 gm/Sodium Chloride 50 ml @ 100 mls/hr Q6HRS IV Last administered on 03/05/19at 06:08; Start 02/25/19 at 18:00 Bisacodyl (Dulcolax Tab) 10 mg 1X ONCE PO Last administered on 02/26/19at 10:00; Start 02/26/19 at 10:00; Stop 02/26/19 at 10:01; Status DC Methylprednisolone Acetate (DEPO-Medrol 40MG VIAL) 40 mg 1X ONCE IM ; Start 02/26/19 at 12:15; Stop 02/26/19 at 12:20; Status DC Bupivacaine HCl (Sensorcaine-Mpf 0.25%) 10 ml 1X ONCE IJ ; Start 02/26/19 at 12:15; Stop 02/26/19 at 12:20; Status DC Methylprednisolone Acetate (DEPO-Medrol 40MG VIAL) 40 mg 1X ONCE IM ; Start 02/27/19 at 08:00; Stop 02/27/19 at 08:01; Status DC Bupivacaine HCl (Sensorcaine-Mpf 0.25%) 10 ml 1X ONCE IJ ; Start 02/27/19 at 08:00; Stop 02/27/19 at 08:01; Status DC Lactobacillus Rhamnosus (Culturelle) 1 cap BID PO Last administered on 03/03/19at 09:13; Start 02/26/19 at 21:00; Stop 03/03/19 at 12:23; Status DC Diclofenac Sodium (Voltaren) 1 mara BID TP Last administered on 03/05/19at 08:46; Start 02/26/19 at 21:00 Artificial Tears (Artificial Tears) 1 drop PRN Q2HR PRN OU DRY EYE Last administered on 03/01/19at 21:00; Start 02/26/19 at 19:15 Ketotifen Fumarate (Zaditor) 1 drop 1X ONCE OU Last administered on 02/27/19at 12:21; Start 02/27/19 at 09:30; Stop 02/27/19 at 09:31; Status DC Atorvastatin Calcium (Lipitor) 20 mg QHS PO Last administered on 03/04/19at 21:11; Start 02/27/19 at 21:00 Sodium Chloride 500 ml @ 500 mls/hr 1X ONCE IV Last administered on 02/28/19at 09:30; Start 02/28/19 at 09:30; Stop 02/28/19 at 10:29; Status DC Alteplase, Recombinant (Cathflo For Central Catheter Clearance) 1 mg 1X ONCE INT CAT ; Start 02/28/19 at 10:15; Stop 02/28/19 at 10:16; Status DC Sodium Chloride 1,000 ml @ 100 mls/hr Q10H IV Last administered on 02/28/19at 12:05; Start 02/28/19 at 12:00; Stop 02/28/19 at 16:41; Status DC Iohexol (Omnipaque 350 Mg/ml) 90 ml 1X ONCE IV Last administered on 02/28/19at 14:25; Start 02/28/19 at 12:30; Stop 02/28/19 at 12:31; Status DC Albuterol Sulfate (Ventolin Neb Soln) 2.5 mg PRN Q4HRS PRN NEB SHORTNESS OF BREATH Last administered on 03/05/19at 00:46; Start 02/28/19 at 13:30 Furosemide (Lasix) 20 mg 1X ONCE IVP Last administered on 02/28/19at 15:54; Start 02/28/19 at 15:30; Stop 02/28/19 at 15:32; Status DC Bupivacaine HCl (Sensorcaine-Mpf 0.25%) 10 ml STK-MED ONCE .ROUTE ; Start 03/01/19 at 11:00; Stop 03/02/19 at 13:29; Status DC Methylprednisolone Acetate (DEPO-Medrol 40MG VIAL) 40 mg STK-MED ONCE .ROUTE ; Start 03/01/19 at 11:00; Stop 03/02/19 at 13:29; Status DC Metoprolol Tartrate (Lopressor Vial) 5 mg 1X ONCE IVP Last administered on 03/02/19at 18:44; Start 03/02/19 at 18:45; Stop 03/02/19 at 18:46; Status DC Norepinephrine Bitartrate 250 ml @ 1.875 mls/ hr CONT PRN IV SEE I/O RECORD Last administered on 03/03/19at 21:29; Start 03/03/19 at 05:45 Etomidate (Amidate) 20 mg STK-MED ONCE IV ; Start 03/03/19 at 05:44; Stop 03/03/19 at 05:45; Status DC Succinylcholine Chloride (Anectine) 200 mg STK-MED ONCE .ROUTE ; Start 03/03/19 at 05:45; Stop 03/03/19 at 05:46; Status DC Propofol 100 ml @ As Directed STK-MED ONCE IV ; Start 03/03/19 at 06:16; Stop 03/03/19 at 06:17; Status DC Propofol 100 ml @ 1.313 mls/ hr CONT PRN IV SEE I/O RECORD Last administered on 03/04/19at 10:43; Start 03/03/19 at 06:30; Stop 03/04/19 at 19:45; Status DC Midazolam HCl 100 ml @ 5 mls/hr CONT PRN IV SEE I/O RECORD; Start 03/03/19 at 07:00 Chlorhexidine Gluconate (Peridex) 15 ml BID MM Last administered on 03/04/19at 07:55; Start 03/03/19 at 09:00; Stop 03/04/19 at 19:45; Status DC Artificial Tears (Artificial Tears) 1 drop PRN Q1HR PRN OU DRY EYE; Start 03/03/19 at 07:00; Status UNV Ketotifen Fumarate (Zaditor) 1 drop DAILY PRN OU ITCHING Last administered on 03/04/19at 07:55; Start 03/03/19 at 10:45 Heparin Sodium (Porcine) (Heparin Sodium) 5,000 unit Q8HRS SQ Last administered on 03/03/19at 21:28; Start 03/03/19 at 22:00; Stop 03/04/19 at 12:48; Status DC Iodixanol (Visipaque 320) 100 ml STK-MED ONCE .ROUTE ; Start 03/03/19 at 15:19; Stop 03/03/19 at 15:20; Status DC Lidocaine HCl (Xylocaine-Mpf 1% 2ml Vial) 2 ml STK-MED ONCE .ROUTE ; Start 03/03/19 at 15:19; Stop 03/03/19 at 15:20; Status DC Heparin Sodium/ Sodium Chloride 1,000 ml @ As Directed STK-MED ONCE .ROUTE ; Start 03/03/19 at 15:19; Stop 03/03/19 at 15:20; Status DC Heparin Sodium (Porcine) (Heparin Sodium) 10,000 unit STK-MED ONCE .ROUTE ; Start 03/03/19 at 15:46; Stop 03/03/19 at 15:47; Status DC Verapamil HCl (Verapamil) 5 mg STK-MED ONCE .ROUTE ; Start 03/03/19 at 15:46; Stop 03/03/19 at 15:47; Status DC Nitroglycerin (Nitroglycerin) 200 mcg STK-MED ONCE .ROUTE ; Start 03/03/19 at 15:47; Stop 03/03/19 at 15:48; Status DC Lidocaine HCl (Lidocaine 1% 20ml Vial) 20 ml STK-MED ONCE .ROUTE ; Start 03/03/19 at 15:56; Stop 03/03/19 at 15:57; Status DC Nitroglycerin (Nitroglycerin) 200 mcg STK-MED ONCE .ROUTE ; Start 03/03/19 at 16:11; Stop 03/03/19 at 16:12; Status DC Iodixanol (Visipaque 320) 100 ml STK-MED ONCE .ROUTE ; Start 03/03/19 at 16:49; Stop 03/03/19 at 16:50; Status DC Heparin Sodium/ Sodium Chloride (HEPARIN for ARTERIAL LINE FLUSH) 1,000 unit 1X ONCE IART Last administered on 03/03/19at 17:00; Start 03/03/19 at 17:00; Stop 03/03/19 at 17:02; Status DC Heparin Sodium/ Sodium Chloride (HEPARIN for ARTERIAL LINE FLUSH) 1,000 unit 1X ONCE IART Last administered on 03/03/19at 17:00; Start 03/03/19 at 17:00; Stop 03/03/19 at 17:02; Status DC Iodixanol (Visipaque 320) 100 ml 1X ONCE IART Last administered on 03/03/19at 17:00; Start 03/03/19 at 17:00; Stop 03/03/19 at 17:02; Status DC Heparin Sodium (Porcine) (Heparin Sodium) 6,500 unit 1X ONCE IV Last administered on 03/03/19at 17:00; Start 03/03/19 at 17:00; Stop 03/03/19 at 17:02; Status DC Lidocaine HCl (Lidocaine 1% 20ml Vial) 20 ml 1X ONCE INJ Last administered on 03/03/19at 17:00; Start 03/03/19 at 17:00; Stop 03/03/19 at 17:02; Status DC Ticagrelor (Brilinta) 90 mg STK-MED ONCE .ROUTE ; Start 03/03/19 at 17:02; Stop 03/03/19 at 17:03; Status DC Heparin Sodium/ Sodium Chloride 500 ml @ As Directed STK-MED ONCE .ROUTE ; Start 03/03/19 at 17:04; Stop 03/03/19 at 17:05; Status DC Ticagrelor (Brilinta) 180 mg 1X ONCE GT Last administered on 03/03/19at 17:15; Start 03/03/19 at 17:15; Stop 03/03/19 at 17:16; Status DC Lidocaine HCl (Lidocaine 2% Viscous) 100 ml PRN 1X PRN MM MOUTH PAIN Last administered on 03/04/19at 10:50; Start 03/04/19 at 10:45; Stop 03/05/19 at 10:44 Lidocaine HCl (Lidocaine 1% 20ml Vial) 20 ml PRN 1X PRN INJ SEE COMMENTS Last administered on 03/04/19at 10:50; Start 03/04/19 at 10:45; Stop 03/05/19 at 10:44 Ticagrelor (Brilinta) 90 mg BID PO Last administered on 03/05/19at 08:45; Start 03/04/19 at 13:30 Potassium Chloride/Water 100 ml @ 100 mls/hr Q1H IV Last administered on 03/04/19at 14:09; Start 03/04/19 at 14:30; Stop 03/04/19 at 15:29; Status DC Digoxin (Lanoxin) 500 mcg 1X ONCE IV Last administered on 03/04/19at 15:24; Start 03/04/19 at 15:15; Stop 03/04/19 at 15:16; Status DC Furosemide (Lasix) 20 mg 1X ONCE IVP Last administered on 03/04/19at 15:48; Start 03/04/19 at 15:45; Stop 03/04/19 at 15:46; Status DC Metoprolol Tartrate (Lopressor Vial) 5 mg 1X ONCE IVP Last administered on 03/04/19at 16:53; Start 03/04/19 at 15:45; Stop 03/04/19 at 15:46; Status DC Fentanyl Citrate (Fentanyl 2ml Vial) 25 mcg PRN Q1HR PRN IV PAIN Last administered on 03/05/19at 02:19; Start 03/04/19 at 16:00 Metoprolol Tartrate (Lopressor) 25 mg Q6HRS PO Last administered on 03/05/19at 06:08; Start 03/04/19 at 19:00 Metoprolol Tartrate (Lopressor Vial) 5 mg PRN Q4HRS PRN IVP HR > 130; Start 03/04/19 at 18:45 Digoxin (Lanoxin) 500 mcg 1X ONCE IV Last administered on 03/05/19at 00:06; Start 03/05/19 at 00:00; Stop 03/05/19 at 00:01; Status DC Furosemide (Lasix) 40 mg 1X ONCE IVP ; Start 03/05/19 at 09:00; Stop 03/05/19 at 09:01; Status DC Active Scripts Active Reported Amlodipine Besylate 10 Mg Tablet 10 Mg PO DAILY Tramadol Hcl 50 Mg Tablet 50 Mg PO Q4H PRN Fish Oil 1,000 Mg Capsule (Barling-3 Fatty Acids/Fish Oil) 1 Each Capsule 1 Each PO Vitamin D3 (Cholecalciferol (Vitamin D3)) 5,000 Unit Capsule 5,000 Unit PO Acetaminophen 500 Mg Tablet 500 Mg PO Aspir 81 (Aspirin) 81 Mg Tablet.dr 81 Mg PO Hydrochlorothiazide Tablet (Hydrochlorothiazide) 25 Mg Tablet 25 Mg PO DAILY Pravastatin Sodium 40 Mg Tablet 40 Mg PO DAILY Miralax (Polyethylene Glycol 3350) 17 Gm Powd.pack 1 Pkt PO DAILY [fiber] Temazepam 30 Mg Capsule 30 Mg PO HS PRN Cozaar (Losartan Potassium) 100 Mg Tablet 100 Mg PO DAILY Vitals/I & O Vital Sign - Last 24 Hours 03/04/19 03/04/19 03/04/19 03/04/19 11:00 11:16 11:41 12:00 Temp 98.2 98.2 Pulse 84 83 Resp 18 16 B/P (MAP) 113/69 (84) 98/50 (66) Pulse Ox 100 100 98 O2 Delivery Ventilator Ventilator Ventilator Mechanical Ventilator 03/04/19 03/04/19 03/04/19 03/04/19 12:00 13:00 14:00 14:50 Pulse 94 96 100 140 Resp 18 24 22 22 B/P (MAP) 98/55 (69) 102/58 (73) 105/68 (80) 111/49 (69) Pulse Ox 100 97 97 97 O2 Delivery Ventilator Ventilator Nasal Cannula Nasal Cannula O2 Flow Rate 2.0 2.0 03/04/19 03/04/19 03/04/19 03/04/19 15:00 15:24 15:45 16:00 Temp 98.2 98.2 Pulse 130 130 125 Resp 22 30 B/P (MAP) 90/58 (69) 90/58 113/54 (73) Pulse Ox 100 96 O2 Delivery Nasal Cannula Nasal Cannula Nasal Cannula O2 Flow Rate 2.0 2.0 2.0 03/04/19 03/04/19 03/04/19 03/04/19 16:00 16:04 16:53 17:00 Pulse 106 116 92 Resp 28 25 23 B/P (MAP) 109/65 (80) 98/54 93/50 (64) Pulse Ox 96 93 98 O2 Delivery Nasal Cannula Nasal Cannula O2 Flow Rate 2.0 2.0 2.0 03/04/19 03/04/19 03/04/19 03/04/19 17:55 18:00 18:25 19:00 Pulse 97 89 Resp 22 25 B/P (MAP) 112/69 (83) 78/32 Pulse Ox 98 98 98 O2 Delivery Nasal Cannula Nasal Cannula O2 Flow Rate 2.0 2.0 03/04/19 03/04/19 03/04/19 03/04/19 19:00 19:52 20:00 20:00 Temp 98.5 98.5 Pulse 93 110 Resp 26 22 B/P (MAP) 86/55 (65) 69/41 (50) Pulse Ox 99 98 99 O2 Delivery Nasal Cannula Nasal Cannula Nasal Cannula Nasal Cannula O2 Flow Rate 2.0 2.0 2.0 2.0 03/04/19 03/04/19 03/04/19 03/04/19 21:00 21:11 22:00 23:00 Pulse 98 102 84 Resp 20 24 18 20 B/P (MAP) 96/50 (65) 124/70 (88) 99/47 (64) Pulse Ox 98 99 100 O2 Delivery Nasal Cannula Nasal Cannula Nasal Cannula Nasal Cannula O2 Flow Rate 2.0 2.0 2.0 2.0 03/05/19 03/05/19 03/05/1903/05/19 00:00 00:00 00:06 00:46 Temp 98.7 98.7 Pulse 96 92 Resp 24 B/P (MAP) 129/67 (87) 129/59 Pulse Ox 98 100 O2 Delivery Nasal Cannula Nasal Cannula Nasal Cannula O2 Flow Rate 2.0 2.0 2.0 03/05/19 03/05/19 03/05/19 03/05/19 01:00 02:00 02:13 02:19 Pulse 68 106 104 Resp 23 26 26 B/P (MAP) 119/65 (83) 110/60 (77) 110/60 Pulse Ox 98 96 96 O2 Delivery Nasal Cannula Nasal Cannula Nasal Cannula O2 Flow Rate 2.0 2.0 2.0 03/05/19 03/05/19 03/05/19 03/05/19 02:49 03:00 03:13 04:00 Pulse 71 52 Resp 28 28 28 26 B/P (MAP) 105/55 (72) 111/50 (70) Pulse Ox 99 96 99 O2 Delivery Nasal Cannula Nasal Cannula Nasal Cannula Nasal Cannula O2 Flow Rate 2.0 2.0 2.0 2.0 03/05/19 03/05/19 03/05/19 03/05/19 04:00 04:00 04:13 05:00 Temp 98.1 98.1 Pulse 72 Resp 26 20 B/P (MAP) 114/56 (75) Pulse Ox 98 99 O2 Delivery Nasal Cannula Nasal Cannula Nasal Cannula O2 Flow Rate 2.0 2.0 2.0 03/05/19 03/05/19 06:00 06:08 Pulse 71 71 Resp 21 B/P (MAP) 111/60 (77) 111/60 Pulse Ox 100 O2 Delivery Nasal Cannula O2 Flow Rate 2.0 Intake and Output 03/04/19 03/04/19 03/05/19 14:59 22:59 06:59 Intake Total 493.9 ml 150 ml 170 ml Output Total 465 ml 1810 ml 710 ml Balance 28.9 ml -1660 ml -540 ml Nutrition Consultation Dietary Evaluation: Recommendations by RD: Increase Calorie Intake Comments: REC start TF per following: Vital HP@20 ml/hr, increase 10 ml q8 hrs as tolerated to goal rate 45 ml/hr w/100 ml water flushes q4 hrs. Expected Outcomes/Goals: PO intake to meet >75% est needs - met at times, new goal established New goal 03/03: TF infusion for nutrition needs while pt remains intubated Malnutrition Findings: Food and Nutrition Intake (Mod: <75% est energy req 7days Weight Status: Appropriate CHRIS MINAYA MD March 05, 2019 10:21
--- NOTE | 2019-03-05 12:22 | PDOC ---
CARDIO Progress Notes Date and Time Date of Service 03/05/19 Time of Evaluation 1210 Subjective Subjective: No Palpitations, Other (s/o MSK chest discomfort secondary to compressions) Vitals Vitals Vital Signs Date Time Temp Pulse Resp B/P (MAP) Pulse Ox O2 Delivery O2 Flow Rate FiO2 03/05/19 11:45 100 Nasal Cannula 2.0 03/05/19 06:08 71 111/60 03/05/19 06:00 21 03/05/19 04:00 98.1 98.1 Weight Weight [ ] Input and Output Intake and Output Intake and Output 03/05/19 06:59 Intake Total 813.9 ml Output Total 2985 ml Balance -2171.1 ml Intake Oral 120 ml IV Total 413.9 ml Tube Feeding 100 ml Other 180 ml Output Urine Total 2985 ml Gastric Drainage Total 0 ml # Bowel Movements 3 Laboratory Labs Laboratory Tests Test 03/04/19 12:50 03/04/19 13:10 03/05/19 06:00 White Blood Count 12.1 x10^3/uL (4.0-11.0) 12.5 x10^3/uL (4.0-11.0) Red Blood Count 2.72 x10^6/uL (3.50-5.40) 2.28 x10^6/uL (3.50-5.40) Hemoglobin 8.6 g/dL (12.0-15.5) 7.3 g/dL (12.0-15.5) Hematocrit 26.0 % (36.0-47.0) 21.9 % (36.0-47.0) Mean Corpuscular Volume 95 fL (79-100) 96 fL (79-100) Mean Corpuscular Hemoglobin 32 pg (25-35) 32 pg (25-35) Mean Corpuscular Hemoglobin Concent 33 g/dL (31-37) 33 g/dL (31-37) Red Cell Distribution Width 14.4 % (11.5-14.5) 14.2 % (11.5-14.5) Platelet Count 339 x10^3/uL (140-400) 332 x10^3/uL (140-400) O2 Saturation 96 % (92-99) Arterial Blood pH 7.48 (7.35-7.45) Arterial Blood pCO2 at Patient Temp 31 mmHg (35-46) Arterial Blood pO2 at Patient Temp 87 mmHg (65-108) Arterial Blood HCO3 23 mmol/L (21-28) Arterial Blood Base Excess 0 mmol/L (-3-3) FiO2 40 Neutrophils (%) (Auto) 81 % (31-73) Lymphocytes (%) (Auto) 10 % (24-48) Monocytes (%) (Auto) 7 % (0-9) Eosinophils (%) (Auto) 1 % (0-3) Basophils (%) (Auto) 1 % (0-3) Neutrophils # (Auto) 10.1 x10^3uL (1.8-7.7) Lymphocytes # (Auto) 1.3 x10^3/uL (1.0-4.8) Monocytes # (Auto) 0.9 x10^3/uL (0.0-1.1) Eosinophils # (Auto) 0.1 x10^3/uL (0.0-0.7) Basophils # (Auto) 0.1 x10^3/uL (0.0-0.2) Sodium Level 147 mmol/L (136-145) Potassium Level 3.4 mmol/L (3.5-5.1) Chloride Level 108 mmol/L (98-107) Carbon Dioxide Level 25 mmol/L (21-32) Anion Gap 14 (6-14) Blood Urea Nitrogen 27 mg/dL (7-20) Creatinine 1.5 mg/dL (0.6-1.0) Estimated GFR (Cockcroft-Gault) 39.8 Glucose Level 76 mg/dL (70-99) Calcium Level 8.6 mg/dL (8.5-10.1) Microbiology Micro Microbiology 02/22/19 Blood Culture - Final, Complete NO GROWTH AFTER 5 DAYS 03/04/19 - Final, Complete 02/22/19 Urine Culture - Final, Complete 02/22/19 Urine Culture Result 1 (JIN) - Final, Complete 02/22/19 Antimicrobic Susceptibility - Final, Complete Physical Exam HEENT: Neck Supple W Full Motion Chest: Symmetric LUNGS: Other (basilar crackles) Heart: S1S2, RRR (SR), no murmurs, other Abdomen: Soft N/T Extremities: No Calf Tenderness Neurology: alert, follow commands Assessment Assessment 1. PEA arrest; Limited echo with preserved LV systolic function with EF 50-55% 2. CAD; s/p PCI/DRE to LM. RCA with subtotal mid occlusion. 3. NSTEMI: Trop peaked at 12 4. Acute respiratory failure; extubated 5. Sepsis/shock: off pressors. BP maintaining 6. Acute diastolic CHF 7. SEBAS; Cr ^1.5 Recommendations Secondary prevention; BB, statin, DAPT with ASA/Brilinta No SHOBHA with SEBAS Lasix IV this am. Further as needed. Monitor renal function Supportive care ODIN RENEE APRN March 05, 2019 12:22
[2019-03-05] MEDS: LIDOCAINE (700MG/PATCH) PATCH. TD SCH (14:47)
[2019-03-05] MEDS: HYDROcodone/APAP 5/325MG 1 TAB TABLET PO PRN (14:48)
--- NOTE | 2019-03-05 14:50 | CARD ---
MR#: [id number] Date of Study: 03/05/2019 Ordering Physician: RENÉ SERRANO, Referring Physician: DEYANIRA ROBERTS, Tech: Erika Da Silva APPROVED REPORT EXAM: Two-dimensional and M-mode echocardiogram with Doppler and color Doppler. Other Information Quality : GoodHR: 69bpm INDICATION LV Function: 2D DIMENSIONS RVDd2.3 (2.9-3.5cm)Left Atrium(2D)2.4 (1.6-4.0cm) IVSd1.2 (0.7-1.1cm)Aortic Root(2D)2.5 (2.0-3.7cm) LVDd3.7 (3.9-5.9cm)PWd0.9 (0.7-1.1cm) LVDs2.6 (2.5-4.0cm)FS (%) 29.9 % SV33.0 ml LEFT VENTRICLE Limited ECHO for LV function. The left ventricle is normal size. There is mild concentric left ventri cular hypertrophy. The left ventricular systolic function is normal and the ejection fraction is with in normal range. The Ejection Fraction is 50-55%. There is normal LV segmental wall motion. RIGHT VENTRICLE The right ventricle is normal size. There is normal right ventricular wall thickness. The right ventr icular systolic function is normal. ATRIA The left atrium size is normal. The right atrium size is normal. The interatrial septum is intact wit h no evidence for an atrial septal defect or patent foramen ovale as noted on 2-D or Doppler imaging. AORTIC VALVE The aortic valve is not well visualized. Doppler and color-flow analysis was not performed. MITRAL VALVE The mitral valve is normal in structure and function. There is no evidence of mitral valve prolapse. There is no mitral valve stenosis. Doppler and color-flow analysis was not performed. TRICUSPID VALVE The tricuspid valve is normal in structure and function. Doppler and color-flow analysis was not perf ormed. There is no tricuspid valve stenosis. PULMONIC VALVE The pulmonic valve is not visualized. Doppler and color-flow analysis was not performed. GREAT VESSELS The aortic root is normal in size. The IVC is normal in size and collapses >50% with inspiration. PERICARDIAL EFFUSION There is no evidence of significant pericardial effusion. Critical Notification Critical Value: No <Conclusion> Limited ECHO for LV function. The left ventricle is normal size. The left ventricular systolic function is normal and the ejection fraction is within normal range. The Ejection Fraction is 50-55%. There is normal LV segmental wall motion. There is mild concentric left ventricular hypertrophy. Signed by : Hussain Cormier MD Electronically Approved : 03/05/2019 14:49:27
--- NOTE | 2019-03-05 15:39 | PDOC ---
PROGRESS NOTES Subjective Subjective She admits chest pain. Objective Objective Vital Signs Date Time Temp Pulse Resp B/P (MAP) Pulse Ox O2 Delivery O2 Flow Rate FiO2 03/05/19 15:00 80 26 132/64 (86) 98 Nasal Cannula 2.0 03/05/19 12:00 98.4 98.4 Intake and Output 03/05/19 07:00 Intake Total 763.9 ml Output Total 2950 ml Balance -2186.1 ml Intake Oral 120 ml IV Total 363.9 ml Tube Feeding 100 ml Other 180 ml Output Urine Total 2950 ml Gastric Drainage Total 0 ml # Bowel Movements 3 Physical Exam Physical Exam She is alert,supine in bed and she is using oxygen by nasal canula. Assessment Assessment Problems Medical Problems: (1) Septic shock Status: Acute Plan Plan of Care To get her up as tolerated. Comment Review of Relevant I have reviewed the following items ne (where applicable) has been applied. Labs Laboratory Tests Test 03/03/19 17:04 03/04/19 05:40 03/04/19 08:10 03/04/19 12:50 Activated Clotting Time 213 sec (92-181) White Blood Count 10.7 x10^3/uL (4.0-11.0) 12.1 x10^3/uL (4.0-11.0) Red Blood Count 2.58 x10^6/uL (3.50-5.40) 2.72 x10^6/uL (3.50-5.40) Hemoglobin 8.2 g/dL (12.0-15.5) 8.6 g/dL (12.0-15.5) Hematocrit 24.7 % (36.0-47.0) 26.0 % (36.0-47.0) Mean Corpuscular Volume 96 fL (79-100) 95 fL (79-100) Mean Corpuscular Hemoglobin 32 pg (25-35) 32 pg (25-35) Mean Corpuscular Hemoglobin Concent 33 g/dL (31-37) 33 g/dL (31-37) Red Cell Distribution Width 14.1 % (11.5-14.5) 14.4 % (11.5-14.5) Platelet Count 313 x10^3/uL (140-400) 339 x10^3/uL (140-400) Neutrophils (%) (Auto) 76 % (31-73) Lymphocytes (%) (Auto) 15 % (24-48) Monocytes (%) (Auto) 7 % (0-9) Eosinophils (%) (Auto) 2 % (0-3) Basophils (%) (Auto) 1 % (0-3) Neutrophils # (Auto) 8.1 x10^3uL (1.8-7.7) Lymphocytes # (Auto) 1.6 x10^3/uL (1.0-4.8) Monocytes # (Auto) 0.7 x10^3/uL (0.0-1.1) Eosinophils # (Auto) 0.2 x10^3/uL (0.0-0.7) Basophils # (Auto) 0.1 x10^3/uL (0.0-0.2) Sodium Level 144 mmol/L (136-145) Potassium Level 3.4 mmol/L (3.5-5.1) Chloride Level 105 mmol/L (98-107) Carbon Dioxide Level 25 mmol/L (21-32) Anion Gap 14 (6-14) Blood Urea Nitrogen 30 mg/dL (7-20) Creatinine 1.4 mg/dL (0.6-1.0) Estimated GFR (Cockcroft-Gault) 43.1 Glucose Level 128 mg/dL (70-99) Calcium Level 8.1 mg/dL (8.5-10.1) Magnesium Level 2.0 mg/dL (1.8-2.4) O2 Saturation 96 % (92-99) Arterial Blood pH 7.48 (7.35-7.45) Arterial Blood pCO2 at Patient Temp 30 mmHg (35-46) Arterial Blood pO2 at Patient Temp 85 mmHg (65-108) Arterial Blood HCO3 22 mmol/L (21-28) Arterial Blood Base Excess -1 mmol/L (-3-3) FiO2 40 Test 03/04/19 13:10 03/05/19 06:00 O2 Saturation 96 % (92-99) Arterial Blood pH 7.48 (7.35-7.45) Arterial Blood pCO2 at Patient Temp 31 mmHg (35-46) Arterial Blood pO2 at Patient Temp 87 mmHg (65-108) Arterial Blood HCO3 23 mmol/L (21-28) Arterial Blood Base Excess 0 mmol/L (-3-3) FiO2 40 White Blood Count 12.5 x10^3/uL (4.0-11.0) Red Blood Count 2.28 x10^6/uL (3.50-5.40) Hemoglobin 7.3 g/dL (12.0-15.5) Hematocrit 21.9 % (36.0-47.0) Mean Corpuscular Volume 96 fL (79-100) Mean Corpuscular Hemoglobin 32 pg (25-35) Mean Corpuscular Hemoglobin Concent 33 g/dL (31-37) Red Cell Distribution Width 14.2 % (11.5-14.5) Platelet Count 332 x10^3/uL (140-400) Neutrophils (%) (Auto) 81 % (31-73) Lymphocytes (%) (Auto) 10 % (24-48) Monocytes (%) (Auto) 7 % (0-9) Eosinophils (%) (Auto) 1 % (0-3) Basophils (%) (Auto) 1 % (0-3) Neutrophils # (Auto) 10.1 x10^3uL (1.8-7.7) Lymphocytes # (Auto) 1.3 x10^3/uL (1.0-4.8) Monocytes # (Auto) 0.9 x10^3/uL (0.0-1.1) Eosinophils # (Auto) 0.1 x10^3/uL (0.0-0.7) Basophils # (Auto) 0.1 x10^3/uL (0.0-0.2) Sodium Level 147 mmol/L (136-145) Potassium Level 3.4 mmol/L (3.5-5.1) Chloride Level 108 mmol/L (98-107) Carbon Dioxide Level 25 mmol/L (21-32) Anion Gap 14 (6-14) Blood Urea Nitrogen 27 mg/dL (7-20) Creatinine 1.5 mg/dL (0.6-1.0) Estimated GFR (Cockcroft-Gault) 39.8 Glucose Level 76 mg/dL (70-99) Calcium Level 8.6 mg/dL (8.5-10.1) Laboratory Tests Test 03/05/19 06:00 White Blood Count 12.5 x10^3/uL (4.0-11.0) Red Blood Count 2.28 x10^6/uL (3.50-5.40) Hemoglobin 7.3 g/dL (12.0-15.5) Hematocrit 21.9 % (36.0-47.0) Mean Corpuscular Volume 96 fL (79-100) Mean Corpuscular Hemoglobin 32 pg (25-35) Mean Corpuscular Hemoglobin Concent 33 g/dL (31-37) Red Cell Distribution Width 14.2 % (11.5-14.5) Platelet Count 332 x10^3/uL (140-400) Neutrophils (%) (Auto) 81 % (31-73) Lymphocytes (%) (Auto) 10 % (24-48) Monocytes (%) (Auto) 7 % (0-9) Eosinophils (%) (Auto) 1 % (0-3) Basophils (%) (Auto) 1 % (0-3) Neutrophils # (Auto) 10.1 x10^3uL (1.8-7.7) Lymphocytes # (Auto) 1.3 x10^3/uL (1.0-4.8) Monocytes # (Auto) 0.9 x10^3/uL (0.0-1.1) Eosinophils # (Auto) 0.1 x10^3/uL (0.0-0.7) Basophils # (Auto) 0.1 x10^3/uL (0.0-0.2) Sodium Level 147 mmol/L (136-145) Potassium Level 3.4 mmol/L (3.5-5.1) Chloride Level 108 mmol/L (98-107) Carbon Dioxide Level 25 mmol/L (21-32) Anion Gap 14 (6-14) Blood Urea Nitrogen 27 mg/dL (7-20) Creatinine 1.5 mg/dL (0.6-1.0) Estimated GFR (Cockcroft-Gault) 39.8 Glucose Level 76 mg/dL (70-99) Calcium Level 8.6 mg/dL (8.5-10.1) Microbiology 02/22/19 Blood Culture - Final, Complete NO GROWTH AFTER 5 DAYS 03/04/19 - Final, Complete 02/22/19 Urine Culture - Final, Complete 02/22/19 Urine Culture Result 1 (JIN) - Final, Complete 02/22/19 Antimicrobic Susceptibility - Final, Complete Medications Current Medications Sodium Chloride 1,000 ml @ 1,000 mls/hr 1X ONCE IV Last administered on 02/22/19at 21:23; Start 02/22/19 at 20:45; Stop 02/22/19 at 21:44; Status DC Acetaminophen (Tylenol) 650 mg 1X ONCE PO Last administered on 02/22/19at 21:22; Start 02/22/19 at 20:45; Stop 02/22/19 at 20:52; Status DC Piperacillin Sod/ Tazobactam Sod (Zosyn Per Pharmacy) 1 each PRN DAILY PRN MC SEE COMMENTS; Start 02/22/19 at 20:45; Stop 02/23/19 at 14:53; Status DC Piperacillin Sod/ Tazobactam Sod 3.375 gm/Sodium Chloride 50 ml @ 100 mls/hr ONCE ONCE IV Last administered on 02/22/19at 21:23; Start 02/22/19 at 21:00; Stop 02/22/19 at 21:29; Status DC Sodium Chloride 1,000 ml @ 1,000 mls/hr 1X ONCE IV Last administered on 02/22/19at 23:44; Start 02/22/19 at 23:30; Stop 02/23/19 at 00:29; Status DC Sodium Chloride 1,000 ml @ 75 mls/hr [id number] IV Last administered on 02/23/19at 07:38; Start 02/22/19 at 23:30; Stop 02/23/19 at 08:17; Status DC Iohexol (Omnipaque 300 Mg/ml) 60 ml 1X ONCE IV Last administered on 02/23/19at 00:02; Start 02/23/19 at 00:15; Stop 02/23/19 at 00:16; Status DC Info (CONTRAST GIVEN -- Rx MONITORING) 1 each PRN DAILY PRN MC SEE COMMENTS; Start 02/23/19 at 00:15; Stop 02/25/19 at 00:14; Status DC Piperacillin Sod/ Tazobactam Sod 2.25 gm/Sodium Chloride 50 ml @ 100 mls/hr Q6HRS IV Last administered on 02/23/19at 12:26; Start 02/23/19 at 06:00; Stop 02/23/19 at 14:34; Status DC Sodium Chloride 1,000 ml @ 1,000 mls/hr 1X ONCE IV ; Start 02/23/19 at 01:00; Stop 02/23/19 at 01:45; Status DC Sodium Chloride 500 ml @ 500 mls/hr 1X ONCE IV Last administered on 02/23/19at 02:07; Start 02/23/19 at 02:00; Stop 02/23/19 at 02:59; Status DC Norepinephrine Bitartrate 250 ml @ 0 mls/hr 1X ONCE IV ; Start 02/23/19 at 02:00; Stop 02/23/19 at 02:01; Status DC Sodium Chloride 500 ml @ 500 mls/hr 1X ONCE IV Last administered on 02/23/19at 06:10; Start 02/23/19 at 02:00; Stop 02/23/19 at 02:59; Status DC Norepinephrine Bitartrate 250 ml @ 1.875 mls/ hr CONT PRN IV SEE I/O RECORD Last administered on 02/26/19at 09:00; Start 02/23/19 at 03:15; Stop 02/27/19 at 14:17; Status DC Ondansetron HCl (Zofran) 4 mg PRN Q6HRS PRN IV NAUSEA/VOMITING Last administered on 02/24/19at 23:21; Start 02/23/19 at 03:15 Iohexol (Omnipaque 300 Mg/ml) 100 ml STK-MED ONCE .ROUTE ; Start 02/23/19 at 04:24; Stop 02/23/19 at 04:25; Status DC Sodium Chloride 500 ml @ 500 mls/hr 1X ONCE IV Last administered on 02/23/19at 08:28; Start 02/23/19 at 07:45; Stop 02/23/19 at 08:44; Status DC Acetaminophen (Tylenol) 650 mg PRN Q6HRS PRN PO MILD PAIN / TEMP Last administered on 03/05/19at 04:08; Start 02/23/19 at 08:15 Ringer's Solution 1,000 ml @ 100 mls/hr Q10H IV Last administered on 02/27/19at 23:15; Start 02/23/19 at 08:30; Stop 02/28/19 at 11:55; Status DC Ringer's Solution 500 ml @ 500 mls/hr 1X ONCE IV Last administered on 02/23/19 09:23; Start 02/23/19 at 09:15; Stop 02/23/19 at 10:14; Status DC Dopamine HCl/ Dextrose 250 ml @ 5.749 mls/ hr CONT PRN IV SEE I/O RECORD Last administered on 02/25/19at 05:11; Start 02/23/19 at 12:15 Tramadol HCl (Ultram) 50 mg PRN Q6HRS PRN PO MODERATE PAIN Last administered on 03/05/19 10:20; Start 02/23/19 at 12:30 Heparin Sodium (Porcine) (Heparin Sodium) 4,000 unit 1X ONCE IV Last administered on 02/23/19 13:30; Start 02/23/19 at 13:00; Stop 02/23/19 at 13:01; Status DC Heparin Sodium/ Dextrose 500 ml @ 0 mls/hr CONT PRN IV SEE I/O RECORD Last administered on 02/25/19 05:12; Start 02/23/19 at 13:00; Stop 02/26/19 at 13:01; Status DC Heparin Sodium (Porcine) (Heparin Sodium) 1,900 unit PRN Q6HRS PRN IV FOR UFH LEVEL LESS THAN 0.2 Last administered on 02/25/19 09:35; Start 02/23/19 at 13:00; Stop 02/26/19 at 13:01; Status DC Polyethylene Glycol (miraLAX PACKET) 17 gm PRN BID PRN PO CONSTIPATION Last administered on 02/23/19 14:38; Start 02/23/19 at 13:15; Stop 02/23/19 at 14:59; Status DC Info (Anti-Coagulation Monitoring By Pharmacy) 1 each PRN DAILY PRN MC SEE COMMENTS Last administered on 02/26/19 08:00; Start 02/23/19 at 13:30; Stop 02/26/19 at 13:50; Status DC Temazepam (Restoril) 15 mg PRN QHS PRN PO INSOMNIA Last administered on 03/04/19 21:11; Start 02/23/19 at 14:45 Piperacillin Sod/ Tazobactam Sod 2.25 gm/Sodium Chloride 50 ml @ 100 mls/hr Q6HRS IV ; Start 02/23/19 at 18:00; Stop 02/23/19 at 18:00; Status DC Polyethylene Glycol (miraLAX PACKET) 17 gm BID PO Last administered on 03/04/19at 07:54; Start 02/23/19 at 21:00 Multi-Ingredient Ointment (Analgesic [place]) 1 mara PRN QID PRN TP MUSCLE PAIN Last administered on 02/27/19 09:18; Start 02/23/19 at 18:00 Pantoprazole Sodium (Protonix) 40 mg DAILYAC PO Last administered on 03/05/19at 08:45; Start 02/24/19 at 17:30 Aspirin (Ecotrin) 325 mg 1X ONCE PO Last administered on 02/25/19 09:31; Start 02/25/19 at 09:15; Stop 02/25/19 at 09:16; Status DC Aspirin (Ecotrin) 81 mg [id number] PO Last administered on 03/05/19at 08:45; Start 02/26/19 at 08:00 Potassium Chloride (Klor-Con) 40 meq 1X ONCE PO Last administered on 02/25/19at 09:32; Start 02/25/19 at 09:15; Stop 02/25/19 at 09:16; Status DC Magnesium Sulfate/ Dextrose 100 ml @ 25 mls/hr 1X ONCE IV Last administered on 02/25/19at 11:49; Start 02/25/19 at 11:30; Stop 02/25/19 at 15:29; Status DC Piperacillin Sod/ Tazobactam Sod (Zosyn Per Pharmacy) 1 each PRN DAILY PRN MC SEE COMMENTS; Start 02/25/19 at 16:45 Piperacillin Sod/ Tazobactam Sod 2.25 gm/Sodium Chloride 50 ml @ 100 mls/hr Q6HRS IV Last administered on 03/05/19at 11:57; Start 02/25/19 at 18:00 Bisacodyl (Dulcolax Tab) 10 mg 1X ONCE PO Last administered on 02/26/19at 10:00; Start 02/26/19 at 10:00; Stop 02/26/19 at 10:01; Status DC Methylprednisolone Acetate (DEPO-Medrol 40MG VIAL) 40 mg 1X ONCE IM ; Start 02/26/19 at 12:15; Stop 02/26/19 at 12:20; Status DC Bupivacaine HCl (Sensorcaine-Mpf 0.25%) 10 ml 1X ONCE IJ ; Start 02/26/19 at 12:15; Stop 02/26/19 at 12:20; Status DC Methylprednisolone Acetate (DEPO-Medrol 40MG VIAL) 40 mg 1X ONCE IM ; Start 02/27/19 at 08:00; Stop 02/27/19 at 08:01; Status DC Bupivacaine HCl (Sensorcaine-Mpf 0.25%) 10 ml 1X ONCE IJ ; Start 02/27/19 at 08:00; Stop 02/27/19 at 08:01; Status DC Lactobacillus Rhamnosus (Culturelle) 1 cap BID PO Last administered on 03/03/19at 09:13; Start 02/26/19 at 21:00; Stop 03/03/19 at 12:23; Status DC Diclofenac Sodium (Voltaren) 1 mara BID TP Last administered on 03/05/19at 08:46; Start 02/26/19 at 21:00 Artificial Tears (Artificial Tears) 1 drop PRN Q2HR PRN OU DRY EYE Last administered on 03/01/19at 21:00; Start 02/26/19 at 19:15 Ketotifen Fumarate (Zaditor) 1 drop 1X ONCE OU Last administered on 02/27/19at 12:21; Start 02/27/19 at 09:30; Stop 02/27/19 at 09:31; Status DC Atorvastatin Calcium (Lipitor) 20 mg QHS PO Last administered on 03/04/19at 21:11; Start 02/27/19 at 21:00; Stop 03/05/19 at 12:19; Status DC Sodium Chloride 500 ml @ 500 mls/hr 1X ONCE IV Last administered on 02/28/19at 09:30; Start 02/28/19 at 09:30; Stop 02/28/19 at 10:29; Status DC Alteplase, Recombinant (Cathflo For Central Catheter Clearance) 1 mg 1X ONCE INT CAT ; Start 02/28/19 at 10:15; Stop 02/28/19 at 10:16; Status DC Sodium Chloride 1,000 ml @ 100 mls/hr Q10H IV Last administered on 02/28/19at 12:05; Start 02/28/19 at 12:00; Stop 02/28/19 at 16:41; Status DC Iohexol (Omnipaque 350 Mg/ml) 90 ml 1X ONCE IV Last administered on 02/28/19at 14:25; Start 02/28/19 at 12:30; Stop 02/28/19 at 12:31; Status DC Albuterol Sulfate (Ventolin Neb Soln) 2.5 mg PRN Q4HRS PRN NEB SHORTNESS OF BREATH Last administered on 03/05/19at 00:46; Start 02/28/19 at 13:30 Furosemide (Lasix) 20 mg 1X ONCE IVP Last administered on 02/28/19at 15:54; Start 02/28/19 at 15:30; Stop 02/28/19 at 15:32; Status DC Bupivacaine HCl (Sensorcaine-Mpf 0.25%) 10 ml STK-MED ONCE .ROUTE ; Start 03/01/19 at 11:00; Stop 03/02/19 at 13:29; Status DC Methylprednisolone Acetate (DEPO-Medrol 40MG VIAL) 40 mg STK-MED ONCE .ROUTE ; Start 03/01/19 at 11:00; Stop 03/02/19 at 13:29; Status DC Metoprolol Tartrate (Lopressor Vial) 5 mg 1X ONCE IVP Last administered on 03/02/19at 18:44; Start 03/02/19 at 18:45; Stop 03/02/19 at 18:46; Status DC Norepinephrine Bitartrate 250 ml @ 1.875 mls/ hr CONT PRN IV SEE I/O RECORD Last administered on 03/03/19at 21:29; Start 03/03/19 at 05:45 Etomidate (Amidate) 20 mg STK-MED ONCE IV ; Start 03/03/19 at 05:44; Stop 03/03/19 at 05:45; Status DC Succinylcholine Chloride (Anectine) 200 mg STK-MED ONCE .ROUTE ; Start 03/03/19 at 05:45; Stop 03/03/19 at 05:46; Status DC Propofol 100 ml @ As Directed STK-MED ONCE IV ; Start 03/03/19 at 06:16; Stop 03/03/19 at 06:17; Status DC Propofol 100 ml @ 1.313 mls/ hr CONT PRN IV SEE I/O RECORD Last administered on 03/04/19at 10:43; Start 03/03/19 at 06:30; Stop 03/04/19 at 19:45; Status DC Midazolam HCl 100 ml @ 5 mls/hr CONT PRN IV SEE I/O RECORD; Start 03/03/19 at 07:00 Chlorhexidine Gluconate (Peridex) 15 ml BID MM Last administered on 03/04/19at 07:55; Start 03/03/19 at 09:00; Stop 03/04/19 at 19:45; Status DC Artificial Tears (Artificial Tears) 1 drop PRN Q1HR PRN OU DRY EYE; Start 03/03/19 at 07:00; Status UNV Ketotifen Fumarate (Zaditor) 1 drop DAILY PRN OU ITCHING Last administered on 03/04/19at 07:55; Start 03/03/19 at 10:45 Heparin Sodium (Porcine) (Heparin Sodium) 5,000 unit Q8HRS SQ Last administered on 03/03/19at 21:28; Start 03/03/19 at 22:00; Stop 03/04/19 at 12:48; Status DC Iodixanol (Visipaque 320) 100 ml STK-MED ONCE .ROUTE ; Start 03/03/19 at 15:19; Stop 03/03/19 at 15:20; Status DC Lidocaine HCl (Xylocaine-Mpf 1% 2ml Vial) 2 ml STK-MED ONCE .ROUTE ; Start 03/03/19 at 15:19; Stop 03/03/19 at 15:20; Status DC Heparin Sodium/ Sodium Chloride 1,000 ml @ As Directed STK-MED ONCE .ROUTE ; Start 03/03/19 at 15:19; Stop 03/03/19 at 15:20; Status DC Heparin Sodium (Porcine) (Heparin Sodium) 10,000 unit STK-MED ONCE .ROUTE ; Start 03/03/19 at 15:46; Stop 03/03/19 at 15:47; Status DC Verapamil HCl (Verapamil) 5 mg STK-MED ONCE .ROUTE ; Start 03/03/19 at 15:46; Stop 03/03/19 at 15:47; Status DC Nitroglycerin (Nitroglycerin) 200 mcg STK-MED ONCE .ROUTE ; Start 03/03/19 at 15:47; Stop 03/03/19 at 15:48; Status DC Lidocaine HCl (Lidocaine 1% 20ml Vial) 20 ml STK-MED ONCE .ROUTE ; Start 03/03/19 at 15:56; Stop 03/03/19 at 15:57; Status DC Nitroglycerin (Nitroglycerin) 200 mcg STK-MED ONCE .ROUTE ; Start 03/03/19 at 16:11; Stop 03/03/19 at 16:12; Status DC Iodixanol (Visipaque 320) 100 ml STK-MED ONCE .ROUTE ; Start 03/03/19 at 16:49; Stop 03/03/19 at 16:50; Status DC Heparin Sodium/ Sodium Chloride (HEPARIN for ARTERIAL LINE FLUSH) 1,000 unit 1X ONCE IART Last administered on 03/03/19at 17:00; Start 03/03/19 at 17:00; Stop 03/03/19 at 17:02; Status DC Heparin Sodium/ Sodium Chloride (HEPARIN for ARTERIAL LINE FLUSH) 1,000 unit 1X ONCE IART Last administered on 03/03/19at 17:00; Start 03/03/19 at 17:00; Stop 03/03/19 at 17:02; Status DC Iodixanol (Visipaque 320) 100 ml 1X ONCE IART Last administered on 03/03/19at 17:00; Start 03/03/19 at 17:00; Stop 03/03/19 at 17:02; Status DC Heparin Sodium (Porcine) (Heparin Sodium) 6,500 unit 1X ONCE IV Last administered on 03/03/19at 17:00; Start 03/03/19 at 17:00; Stop 03/03/19 at 17:02; Status DC Lidocaine HCl (Lidocaine 1% 20ml Vial) 20 ml 1X ONCE INJ Last administered on 03/03/19at 17:00; Start 03/03/19 at 17:00; Stop 03/03/19 at 17:02; Status DC Ticagrelor (Brilinta) 90 mg STK-MED ONCE .ROUTE ; Start 03/03/19 at 17:02; Stop 03/03/19 at 17:03; Status DC Heparin Sodium/ Sodium Chloride 500 ml @ As Directed STK-MED ONCE .ROUTE ; Start 03/03/19 at 17:04; Stop 03/03/19 at 17:05; Status DC Ticagrelor (Brilinta) 180 mg 1X ONCE GT Last administered on 03/03/19at 17:15; Start 03/03/19 at 17:15; Stop 03/03/19 at 17:16; Status DC Lidocaine HCl (Lidocaine 2% Viscous) 100 ml PRN 1X PRN MM MOUTH PAIN Last administered on 03/04/19at 10:50; Start 03/04/19 at 10:45; Stop 03/05/19 at 10:44; Status DC Lidocaine HCl (Lidocaine 1% 20ml Vial) 20 ml PRN 1X PRN INJ SEE COMMENTS Last a dministered on 03/04/19at 10:50; Start 03/04/19 at 10:45; Stop 03/05/19 at 10:44; Status DC Ticagrelor (Brilinta) 90 mg BID PO Last administered on 03/05/19 08:45; Start 03/04/19 at 13:30 Potassium Chloride/Water 100 ml @ 100 mls/hr Q1H IV Last administered on 03/04/19 14:09; Start 03/04/19 at 14:30; Stop 03/04/19 at 15:29; Status DC Digoxin (Lanoxin) 500 mcg 1X ONCE IV Last administered on 03/04/19at 15:24; Start 03/04/19 at 15:15; Stop 03/04/19 at 15:16; Status DC Furosemide (Lasix) 20 mg 1X ONCE IVP Last administered on 03/04/19 15:48; Start 03/04/19 at 15:45; Stop 03/04/19 at 15:46; Status DC Metoprolol Tartrate (Lopressor Vial) 5 mg 1X ONCE IVP Last administered on 03/04/19 16:53; Start 03/04/19 at 15:45; Stop 03/04/19 at 15:46; Status DC Fentanyl Citrate (Fentanyl 2ml Vial) 25 mcg PRN Q1HR PRN IV PAIN Last administered on 03/05/19 11:45; Start 03/04/19 at 16:00 Metoprolol Tartrate (Lopressor) 25 mg Q6HRS PO Last administered on 03/05/19 12:49; Start 03/04/19 at 19:00 Metoprolol Tartrate (Lopressor Vial) 5 mg PRN Q4HRS PRN IVP HR > 130; Start 03/04/19 at 18:45 Digoxin (Lanoxin) 500 mcg 1X ONCE IV Last administered on 5/15/19at 00:06; Start 03/05/19 at 00:00; Stop 03/05/19 at 00:01; Status DC Furosemide (Lasix) 40 mg 1X ONCE IVP Last administered on 03/05/19at 10:21; Start 03/05/19 at 09:00; Stop 03/05/19 at 09:01; Status DC Epinephrine HCl (EPINEPHrine SYRINGE) 3 mg STK-MED ONCE .ROUTE ; Start 03/02/19 at 10:00; Stop 03/05/19 at 10:46; Status DC Atorvastatin Calcium (Lipitor) 40 mg QHS PO ; Start 03/05/19 at 21:00 Acetaminophen/ Hydrocodone Bitart (Lortab 5/325) 1 tab PRN Q6HRS PRN PO SEVERE PAIN Last administered on 03/05/19at 14:48; Start 03/05/19 at 12:30 Lidocaine (Lidoderm) 1 patch DAILY TD Last administered on 03/05/19at 14:47; Start 03/05/19 at 13:00 Miscellaneous (Lidoderm Patch Removal) 1 ea QHS MC ; Start 03/05/19 at 21:00 Active Scripts Active Reported Amlodipine Besylate 10 Mg Tablet 10 Mg PO DAILY Tramadol Hcl 50 Mg Tablet 50 Mg PO Q4H PRN Fish Oil 1,000 Mg Capsule ([place]-3 Fatty Acids/Fish Oil) 1 Each Capsule 1 Each PO Vitamin D3 (Cholecalciferol (Vitamin D3)) 5,000 Unit Capsule 5,000 Unit PO Acetaminophen 500 Mg Tablet 500 Mg PO Aspir 81 (Aspirin) 81 Mg Tablet.dr 81 Mg PO Hydrochlorothiazide Tablet (Hydrochlorothiazide) 25 Mg Tablet 25 Mg PO DAILY Pravastatin Sodium 40 Mg Tablet 40 Mg PO DAILY Miralax (Polyethylene Glycol 3350) 17 Gm Powd.pack 1 Pkt PO DAILY [fiber] Temazepam 30 Mg Capsule 30 Mg PO HS PRN Cozaar (Losartan Potassium) 100 Mg Tablet 100 Mg PO DAILY Vitals/I & O Vital Sign - Last 24 Hours 03/04/19 03/04/19 03/04/19 03/04/19 15:45 16:00 16:00 16:04 Pulse 125 106 Resp 30 28 25 B/P (MAP) 113/54 (73) 109/65 (80) Pulse Ox 96 96 93 O2 Delivery Nasal Cannula Nasal Cannula Nasal Cannula O2 Flow Rate 2.0 2.0 2.0 2.0 03/04/19 03/04/19 03/04/19 03/04/19 16:53 17:00 17:55 18:00 Pulse 116 92 97 Resp 23 22 25 B/P (MAP) 98/54 93/50 (64) 112/69 (83) Pulse Ox 98 98 98 O2 Delivery Nasal Cannula Nasal Cannula Nasal Cannula O2 Flow Rate 2.0 2.0 2.0 03/04/19 03/04/19 03/04/19 03/04/19 18:25 19:00 19:00 19:52 Pulse 89 93 Resp 26 B/P (MAP) 78/32 86/55 (65) Pulse Ox 98 99 98 O2 Delivery Nasal Cannula Nasal Cannula O2 Flow Rate 2.0 2.0 03/04/19 03/04/19 03/04/19 03/04/19 20:00 20:00 21:00 21:11 Temp 98.5 98.5 Pulse 110 98 Resp 22 20 24 B/P (MAP) 69/41 (50) 96/50 (65) Pulse Ox 99 98 O2 Delivery Nasal Cannula Nasal Cannula Nasal Cannula Nasal Cannula O2 Flow Rate 2.0 2.0 2.0 2.0 03/04/19 03/04/19 03/05/19 03/05/19 22:00 23:00 00:00 00:00 Temp 98.7 98.7 Pulse 102 84 96 Resp 18 20 24 B/P (MAP) 124/70 (88) 99/47 (64) 129/67 (87) Pulse Ox 99 100 98 O2 Delivery Nasal Cannula Nasal Cannula Nasal Cannula Nasal Cannula O2 Flow Rate 2.0 2.0 2.0 2.0 03/05/19 03/05/19 03/05/19 03/05/19 00:06 00:46 01:00 02:00 Pulse 92 68 106 Resp 23 26 B/P (MAP) 129/59 119/65 (83) 110/60 (77) Pulse Ox 100 98 96 O2 Delivery Nasal Cannula Nasal Cannula Nasal Cannula O2 Flow Rate 2.0 2.0 2.0 03/05/19 03/05/19 03/05/19 03/05/19 02:13 02:19 02:49 03:00 Pulse 104 71 Resp 28 28 B/P (MAP) 110/60 105/55 (72) Pulse Ox 96 99 O2 Delivery Nasal Cannula Nasal Cannula Nasal Cannula O2 Flow Rate 2.0 2.0 2.0 03/05/19 03/05/19 03/05/19 03/05/19 03:13 04:00 04:00 04:00 Temp 98.1 98.1 Pulse 52 Resp 28 26 B/P (MAP) 111/50 (70) Pulse Ox 96 99 O2 Delivery Nasal Cannula Nasal Cannula Nasal Cannula O2 Flow Rate 2.0 2.0 2.0 03/05/19 03/05/19 03/05/19 03/05/19 04:13 05:00 06:00 06:08 Pulse 72 71 71 Resp 20 21 B/P (MAP) 114/56 (75) 111/60 (77) 111/60 Pulse Ox 98 99 100 O2 Delivery Nasal Cannula Nasal Cannula Nasal Cannula O2 Flow Rate 2.0 2.0 2.0 03/05/19 03/05/19 03/05/19 03/05/19 07:00 08:00 08:00 09:00 Temp 98.6 98.6 Pulse 70 68 68 Resp 18 16 24 B/P (MAP) 106/55 (72) 113/53 (73) 117/59 (78) Pulse Ox 99 100 100 O2 Delivery Nasal Cannula Nasal Cannula Nasal Cannula Nasal Cannula O2 Flow Rate 2.0 2.0 2.0 2.0 03/05/19 03/05/19 03/05/19 03/05/19 10:00 11:00 11:45 12:00 Temp 98.4 98.4 Pulse 66 66 64 Resp 22 B/P (MAP) 122/59 (80) 134/56 (82) 115/58 (77) Pulse Ox 97 99 100 99 O2 Delivery Nasal Cannula Nasal Cannula Nasal Cannula Nasal Cannula O2 Flow Rate 2.0 2.0 2.0 2.0 03/05/19 03/05/19 03/05/19 03/05/19 12:00 12:49 13:00 14:00 Pulse 64 64 66 Resp 22 B/P (MAP) 115/58 134/59 (84) 111/46 (67) Pulse Ox 97 O2 Delivery Nasal Cannula Nasal Cannula Nasal Cannula O2 Flow Rate 2.0 2.0 2.0 03/05/19 15:00 Pulse 80 Resp 26 B/P (MAP) 132/64 (86) Pulse Ox 98 O2 Delivery Nasal Cannula O2 Flow Rate 2.0 Intake and Output 03/04/19 03/04/19 03/05/19 15:00 23:00 07:00 Intake Total 443.9 ml 150 ml 170 ml Output Total 560 ml 1800 ml 590 ml Balance -116.1 ml -1650 ml -420 ml Nutrition Consultation Dietary Evaluation: Recommendations by RD: Increase Calorie Intake, Protein supplementation Comments: Continue w/cardiac/GI soft diet as ordered, honor food preferences and provide snacks as requested REC Ensure (strawberry) BID w/lunch and dinner Expected Outcomes/Goals: New goal 03/03: TF infusion for nutrition needs while pt remains intubated - met, new goal established New goal 03/05: PO intake to meet >75% est needs Malnutrition Findings: Food and Nutrition Intake (Mod: <75% est energy req 7days Weight Status: Appropriate ERIN PRIETO MD March 05, 2019 15:39
--- NOTE | 2019-03-05 17:07 | PATHOLOGY ---
Note [facility] Accession Number: [id number] TESTS RESULT FLAG UNITS REF RANGE LAB Clinician Provided Cytology Information No. of containers..01 Other (Miscellaneous) Source: BAL RML / RUL DIAGNOSIS: 02 BAL RML / RUL NEGATIVE FOR MALIGNANT CELLS. FOCALLY REACTIVE BRONCHIAL EPITHELIAL CELLS, PULMONARY MACROPHAGES, AND ACUTE INFLAMMATORY CELLS PRESENT. Signed out by: Alexandre Montalvo MD, Pathologist NPI- [id number] Performed by: Gabrielle Crane, Software Tools Engineer ([facility]) Gross description: 01 5ML, PINK, CLEAR /LCS FLAG LEGEND: L-Low Normal,H-High Normal,LL-Alert Low,HH-Alert High <-Panic Low,>-Panic High,A-Abnormal,AA-Critical Abnormal Performed at: [address] [place] [address] Owen Brown MD, 02 [facility] [address] [place] [address] Alexandre Montalvo MD, Specimen Comment: A courtesy copy of this report has been sent to Specimen Comment: [phone], . Specimen Comment: Report sent to / DR ROBERTS Specimen Comment: A duplicate report has been generated due to demographic updates. Performed at: [address] [place] [address] [address], [place], [place] [id number] MD Owen Brown MD Phone: [phone]
[2019-03-05] MEDS ORDERED: PATCH REMOVAL. MC SCH (21:00)
[2019-03-05] MEDS ORDERED: ATORVASTATIN CALCIUM 40 MG TABLET. PO SCH (21:00)
[2019-03-05] MEDS: TEMAZEPAM 15 MG CAPSULE PO PRN (21:53)
[2019-03-06 04:07] VITALS: BP 109/52
[2019-03-06] MEDS: HYDROcodone/APAP 5/325MG 1 TAB TABLET PO PRN ×2 (05:25→12:12)
[2019-03-06] MEDS: METOPROLOL TART IMMED RELEASE 25 MG TABLET. PO SCH ×2 (05:25→11:37)
[2019-03-06] MEDS: PIPERACILLIN/TAZOBACTAM 2.25 GM in IV NORMAL SALINE 50ML 50 ML IV SCH (05:25)
[2019-03-06 06:43] LABS: BASO % 0 % (0-3); EOS # 0.2 x10^3/uL (0.0-0.7); EOS % 1 % (0-3); HEMATOCRIT 25.4 % (36.0-47.0); HEMOGLOBIN 8.3 g/dL (12.0-15.5); LYMPH # 1.2 x10^3/uL (1.0-4.8); LYMPH % 9 % (24-48); MEAN CORPUSCULAR HEMOGLOBIN 31 pg (25-35); MEAN CORPUSCULAR HGB CONC 33 g/dL (31-37); MEAN CORPUSCULAR VOLUME 95 fL (79-100); MONO # 0.8 x10^3/uL (0.0-1.1); MONO % 6 % (0-9); NEUT # 10.8 x10^3uL (1.8-7.7); NEUT % 84 % (31-73); PLATELET COUNT 351 x10^3/uL (140-400); RED BLOOD COUNT 2.67 x10^6/uL (3.50-5.40); WHITE BLOOD COUNT 12.9 x10^3/uL (4.0-11.0)
[2019-03-06 07:47] VITALS: BP 140/63
[2019-03-06 08:22] LABS: CALCIUM 8.7 mg/dL (8.5-10.1); CREATININE 1.4 mg/dL (0.6-1.0); GFR 43.1; POTASSIUM 3.2 mmol/L (3.5-5.1)
[2019-03-06] MEDS: PANTOPRAZOLE 40 MG TABLET.DR. PO SCH (08:28)
[2019-03-06] MEDS: ASPIRIN ENTERIC COATED 81 MG TABLET.DR. PO SCH (08:28)
[2019-03-06] MEDS: traMADol 50 MG TABLET PO PRN (08:29)
[2019-03-06] MEDS: TICAGRELOR 90 MG TABLET. PO SCH (08:30)
[2019-03-06] MEDS: POLYETHYLENE GLYCOL 3350 17 GM PACKET. PO SCH (08:30)
[2019-03-06] MEDS: LIDOCAINE (700MG/PATCH) PATCH. TD SCH (08:30)
[2019-03-06] MEDS: DICLOFENAC SODIUM 1% TOPICAL GEL 100GM TUBE. TP SCH (08:33)
--- NOTE | 2019-03-06 08:47 | RAD ---
EXAM: CHEST 1 VIEW History: Pulmonary infiltrates COMPARISON: 03/05/2019 TECHNIQUE: Single portable radiograph of the chest FINDINGS: Low lung volumes and technique accentuates heart size and pulmonary vascularity. Mild cardiomegaly. Right-sided PICC line is unchanged. Improved bilateral interstitial lung markings likely congestive changes. IMPRESSION: 1. Improved congestive changes Electronically signed by: Nakul Stewart MD (03/06/2019 8:44 AM) [id number]
--- NOTE | 2019-03-06 08:56 | NUR ---
SS following up with discharge planning. Pt transferred to and per pt is feeling much better. Pt requesting to still go to [facility], ; fax [phone]. SS phoned and faxed clinical updates and new referral to [facility]. Pt accepted. SS will continue to follow for discharge planning.
--- NOTE | 2019-03-06 09:09 | PDOC ---
Infectious Disease Note Subjective Subjective Still has chest discomfort and occ cough No F/C/S/N/v/d/SOA No fevers last 24 hours Vital Sign Vital Signs Vital Signs Date Time Temp Pulse Resp B/P (MAP) Pulse Ox O2 Delivery O2 Flow Rate FiO2 03/06/19 08:29 94 Nasal Cannula 2.0 03/06/19 07:47 98.0 58 20 140/63 (88) 98.0 Physical Exam PHYSICAL EXAM GENERAL: Alert and NAD. Coop, eating breakfast HEENT: Pupils equally round, small. Normal conjunctivae. Wearing her glasses. OC/Op - clear NECK: Supple. LUNGS: CTA HEART: IRRR ABDOMEN: Soft, NT. No guard/rebound. mild distention : Leach in place EXTREMITIES: No gross edema or cyanosis. SKIN: Warm without generalized rash. NEUROLOGIC: Answers questions and follows commands RUE-PICC (02/25) without signs of any complications. Right groin line is clean Labs Lab Laboratory Tests Test 03/06/19 06:30 White Blood Count 12.9 x10^3/uL (4.0-11.0) Red Blood Count 2.67 x10^6/uL (3.50-5.40) Hemoglobin 8.3 g/dL (12.0-15.5) Hematocrit 25.4 % (36.0-47.0) Mean Corpuscular Volume 95 fL (79-100) Mean Corpuscular Hemoglobin 31 pg (25-35) Mean Corpuscular Hemoglobin Concent 33 g/dL (31-37) Red Cell Distribution Width 14.0 % (11.5-14.5) Platelet Count 351 x10^3/uL (140-400) Neutrophils (%) (Auto) 84 % (31-73) Lymphocytes (%) (Auto) 9 % (24-48) Monocytes (%) (Auto) 6 % (0-9) Eosinophils (%) (Auto) 1 % (0-3) Basophils (%) (Auto) 0 % (0-3) Neutrophils # (Auto) 10.8 x10^3uL (1.8-7.7) Lymphocytes # (Auto) 1.2 x10^3/uL (1.0-4.8) Monocytes # (Auto) 0.8 x10^3/uL (0.0-1.1) Eosinophils # (Auto) 0.2 x10^3/uL (0.0-0.7) Basophils # (Auto) 0.0 x10^3/uL (0.0-0.2) Sodium Level 147 mmol/L (136-145) Potassium Level 3.2 mmol/L (3.5-5.1) Chloride Level 107 mmol/L (98-107) Carbon Dioxide Level 25 mmol/L (21-32) Anion Gap 15 (6-14) Blood Urea Nitrogen 29 mg/dL (7-20) Creatinine 1.4 mg/dL (0.6-1.0) Estimated GFR (Cockcroft-Gault) 43.1 Glucose Level 116 mg/dL (70-99) Calcium Level 8.7 mg/dL (8.5-10.1) Micro Microbiology 02/22/19 Blood Culture - Final, Complete NO GROWTH AFTER 5 DAYS 02/22/19 Urine Culture - Final, Complete 02/22/19 Urine Culture Result 1 (JIN) - Final, Complete 02/22/19 Antimicrobic Susceptibility - Final, Complete Objective Assessment S/p cardiac cath PCI to open left main 03/03 s/p code blue, PEA Leukocytosis, likely reactive and s/p solumedrol 03/01 - stable Chest pain from compressions SEBAS -mild increase today Anemia Hypotension - of pressors E. coli UTI, POA, 02/22 on Zosyn Lactic acidosis, better Pulmonary effusions Acute diastolic heart failure S/p NSTEMI Sulfa allergy Diabetes Plan Plan of Care Discontinue Zosyn - clinically much improved PICC maintenance care Monitor labs/VS Supportive care D/w nursing SERGO ETIENNE MD March 06, 2019 09:09
--- NOTE | 2019-03-06 09:12 | PDOC ---
PROGRESS NOTES Chief Complaint Chief Complaint Status post CODE BLUE 03/04 back in ICU EXTUBATED 03/04 Recent sepsis with resolving hypotension Sudden dyspnea: mild CHF NSTEMI: PAD Hx of HTN Valvular insufficiency: Mild AI, mild to mod MR, Mild TR Mild Colonic ileus A-FIB RVR moderate pulmonary hypertension. The PA pressure was estimated at 55 mmHg. HYPOKALEMIA S/p cardiac cath PCI to open left main 03/03 Successful PCI of the LM with a 4.0/12 mm DRE, post-dilated with a 4.5 mm NC balloon. s/p code blue, PEA Leukocytosis, likely reactive and s/p solumedrol 03/01 - SEBAS -mild increase Anemia Hypotension - ofF pressors E. coli UTI, POA, 02/22 on Zosyn D/C 03/06 Lactic acidosis, Pulmonary effusions Improved bilateral interstitial lung markings likely congestive changes. 03/06 CXR ckd stage 3 HYPOKALEMIA replaced Secondary prevention; BB, statin, DAPT with ASA/Brilinta to HEALTH CARE RESORT TODAY 36 MIN D/C PLANNING TIME History of Present Illness History of Present Illness Patient seen and examined Daughter is present I discussed with her in the nurse Reviewed the code with the nurse CODE Events 2 days ago The patient became very anxious and then went into the PEA was coded for 9 minutes including compressions and intubation CARDIOLOGY FOLLOWING Discontinue Zosyn - LEFT VENTRICLE The left ventricle is normal size. There is borderline concentric left ventricul ar hypertrophy. Left ventricle systolic function is low normal. The Ejection Fraction is 50-55%. There is normal LV segmental wall motion. Transmitral Doppler flow pattern is Grade I-abnormal relaxation pattern. RIGHT VENTRICLE The right ventricle is normal size. There is normal right ventricular wall thickness. The right ventricular systolic function is normal. ATRIA The left atrium size is normal. The right atrium size is normal. The interatrial septum is intact with no evidence for an atrial septal defect or patent foramen ovale as noted on 2-D or Doppler imaging. AORTIC VALVE The aortic valve is thickened but opens well. The aortic valve is trileaflet. Doppler and Color Flow revealed trace to mild aortic regurgitation. There is no significant aortic valvular stenosis. MITRAL VALVE The mitral valve is thickened but opens well. There is no evidence of mitral valve prolapse. There is no mitral valve stenosis. Doppler and Color-flow revealed mild to moderate mitral regurgitation. TRICUSPID VALVE The tricuspid valve is normal in structure and function. Doppler and Color Flow revealed mild tricuspid regurgitation. There is moderate pulmonary hypertension. The PA pressure was estimated at 55 mmHg. There is no tricuspid valve prolapse or vegetation. PULMONIC VALVE The pulmonic valve is not well visualized. GREAT VESSELS The aortic root is normal in size. The ascending aorta is normal in size. The IVC is dilated and collapses >50% with inspiration. PERICARDIAL EFFUSION There is no evidence of significant pericardial effusion. Critical Notification Critical Value: No <Conclusion> The left ventricle is normal size. Left ventricle systolic function is low normal. The Ejection Fraction is 50-55%. There is borderline concentric left ventricular hypertrophy. There is no significant aortic valvular stenosis. Doppler and Color Flow revealed trace to mild aortic regurgitation. Doppler and Color-flow revealed mild to moderate mitral regurgitation. Doppler and Color Flow revealed mild tricuspid regurgitation. There is moderate pulmonary hypertension. The PA pressure was estimated at 55 mmHg. Signed by : Hussain Cormier MD Electronically Approved : 02/24/2019 12:34:10 Vitals Vitals Vital Signs Date Time Temp Pulse Resp B/P (MAP) Pulse Ox O2 Delivery O2 Flow Rate FiO2 03/06/19 08:29 94 Nasal Cannula 2.0 03/06/19 07:47 98.0 58 20 140/63 (88) 98.0 Physical Exam Physical Exam GENERAL: Alert and NAD. Coop HEENT: Pupils equally round, small. Normal conjunctivae. OC/Op - clear NECK: Supple. LUNGS: CTA HEART: IRRR ABDOMEN: Soft, NT. No guard/rebound. mild distention : Leach in place EXTREMITIES: No gross edema or cyanosis. SKIN: Warm without generalized rash. NEUROLOGIC: Answers questions and follows commands RUE-PICC (02/25) without signs of any complications. Right groin line is clean General: Alert, Oriented X3, Cooperative, No acute distress, Other (improved appearance) Heart: Other (soft S1-S2 intermittent tachycardia) Lungs: Clear, Other (decrease bs) Abdomen: Normal bowel sounds Extremities: No clubbing, No cyanosis, No edema, Other (Decreased peripheral pulses in RUE, LUE and LLE, good pulses RLE) Skin: No rashes, No breakdown, No significant lesion Labs LABS EXAM: CHEST 1 VIEW History: Pulmonary infiltrates COMPARISON: 03/05/2019 TECHNIQUE: Single portable radiograph of the chest FINDINGS: Low lung volumes and technique accentuates heart size and pulmonary vascularity. Mild cardiomegaly. Right-sided PICC line is unchanged. Improved bilateral interstitial lung markings likely congestive changes. IMPRESSION: 1. Improved congestive changes Electronically signed by: Nakul Stewart MD (03/06/2019 8:44 AM) [id number] Laboratory Tests Test 03/06/19 06:30 White Blood Count 12.9 x10^3/uL (4.0-11.0) Red Blood Count 2.67 x10^6/uL (3.50-5.40) Hemoglobin 8.3 g/dL (12.0-15.5) Hematocrit 25.4 % (36.0-47.0) Mean Corpuscular Volume 95 fL (79-100) Mean Corpuscular Hemoglobin 31 pg (25-35) Mean Corpuscular Hemoglobin Concent 33 g/dL (31-37) Red Cell Distribution Width 14.0 % (11.5-14.5) Platelet Count 351 x10^3/uL (140-400) Neutrophils (%) (Auto) 84 % (31-73) Lymphocytes (%) (Auto) 9 % (24-48) Monocytes (%) (Auto) 6 % (0-9) Eosinophils (%) (Auto) 1 % (0-3) Basophils (%) (Auto) 0 % (0-3) Neutrophils # (Auto) 10.8 x10^3uL (1.8-7.7) Lymphocytes # (Auto) 1.2 x10^3/uL (1.0-4.8) Monocytes # (Auto) 0.8 x10^3/uL (0.0-1.1) Eosinophils # (Auto) 0.2 x10^3/uL (0.0-0.7) Basophils # (Auto) 0.0 x10^3/uL (0.0-0.2) Sodium Level 147 mmol/L (136-145) Potassium Level 3.2 mmol/L (3.5-5.1) Chloride Level 107 mmol/L (98-107) Carbon Dioxide Level 25 mmol/L (21-32) Anion Gap 15 (6-14) Blood Urea Nitrogen 29 mg/dL (7-20) Creatinine 1.4 mg/dL (0.6-1.0) Estimated GFR (Cockcroft-Gault) 43.1 Glucose Level 116 mg/dL (70-99) Calcium Level 8.7 mg/dL (8.5-10.1) Assessment and Plan Assessmemt and Plan Problems Medical Problems: (1) Septic shock Status: Acute Comment Review of Relevant I have reviewed the following items ne (where applicable) has been applied. Labs Laboratory Tests Test 03/04/19 12:50 03/04/19 13:10 03/05/19 06:00 03/06/19 06:30 White Blood Count 12.1 x10^3/uL (4.0-11.0) 12.5 x10^3/uL (4.0-11.0) 12.9 x10^3/uL (4.0-11.0) Red Blood Count 2.72 x10^6/uL (3.50-5.40) 2.28 x10^6/uL (3.50-5.40) 2.67 x10^6/uL (3.50-5.40) Hemoglobin 8.6 g/dL (12.0-15.5) 7.3 g/dL (12.0-15.5) 8.3 g/dL (12.0-15.5) Hematocrit 26.0 % (36.0-47.0) 21.9 % (36.0-47.0) 25.4 % (36.0-47.0) Mean Corpuscular Volume 95 fL (79-100) 96 fL (79-100) 95 fL (79-100) Mean Corpuscular Hemoglobin 32 pg (25-35) 32 pg (25-35) 31 pg (25-35) Mean Corpuscular Hemoglobin Concent 33 g/dL (31-37) 33 g/dL (31-37) 33 g/dL (31-37) Red Cell Distribution Width 14.4 % (11.5-14.5) 14.2 % (11.5-14.5) 14.0 % (11.5-14.5) Platelet Count 339 x10^3/uL (140-400) 332 x10^3/uL (140-400) 351 x10^3/uL (140-400) O2 Saturation 96 % (92-99) Arterial Blood pH 7.48 (7.35-7.45) Arterial Blood pCO2 at Patient Temp 31 mmHg (35-46) Arterial Blood pO2 at Patient Temp 87 mmHg (65-108) Arterial Blood HCO3 23 mmol/L (21-28) Arterial Blood Base Excess 0 mmol/L (-3-3) FiO2 40 Neutrophils (%) (Auto) 81 % (31-73) 84 % (31-73) Lymphocytes (%) (Auto) 10 % (24-48) 9 % (24-48) Monocytes (%) (Auto) 7 % (0-9) 6 % (0-9) Eosinophils (%) (Auto) 1 % (0-3) 1 % (0-3) Basophils (%) (Auto) 1 % (0-3) 0 % (0-3) Neutrophils # (Auto) 10.1 x10^3uL (1.8-7.7) 10.8 x10^3uL (1.8-7.7) Lymphocytes # (Auto) 1.3 x10^3/uL (1.0-4.8) 1.2 x10^3/uL (1.0-4.8) Monocytes # (Auto) 0.9 x10^3/uL (0.0-1.1) 0.8 x10^3/uL (0.0-1.1) Eosinophils # (Auto) 0.1 x10^3/uL (0.0-0.7) 0.2 x10^3/uL (0.0-0.7) Basophils # (Auto) 0.1 x10^3/uL (0.0-0.2) 0.0 x10^3/uL (0.0-0.2) Sodium Level 147 mmol/L (136-145) 147 mmol/L (136-145) Potassium Level 3.4 mmol/L (3.5-5.1) 3.2 mmol/L (3.5-5.1) Chloride Level 108 mmol/L (98-107) 107 mmol/L (98-107) Carbon Dioxide Level 25 mmol/L (21-32) 25 mmol/L (21-32) Anion Gap 14 (6-14) 15 (6-14) Blood Urea Nitrogen 27 mg/dL (7-20) 29 mg/dL (7-20) Creatinine 1.5 mg/dL (0.6-1.0) 1.4 mg/dL (0.6-1.0) Estimated GFR (Cockcroft-Gault) 39.8 43.1 Glucose Level 76 mg/dL (70-99) 116 mg/dL (70-99) Calcium Level 8.6 mg/dL (8.5-10.1) 8.7 mg/dL (8.5-10.1) Laboratory Tests Test 03/06/19 06:30 White Blood Count 12.9 x10^3/uL (4.0-11.0) Red Blood Count 2.67 x10^6/uL (3.50-5.40) Hemoglobin 8.3 g/dL (12.0-15.5) Hematocrit 25.4 % (36.0-47.0) Mean Corpuscular Volume 95 fL (79-100) Mean Corpuscular Hemoglobin 31 pg (25-35) Mean Corpuscular Hemoglobin Concent 33 g/dL (31-37) Red Cell Distribution Width 14.0 % (11.5-14.5) Platelet Count 351 x10^3/uL (140-400) Neutrophils (%) (Auto) 84 % (31-73) Lymphocytes (%) (Auto) 9 % (24-48) Monocytes (%) (Auto) 6 % (0-9) Eosinophils (%) (Auto) 1 % (0-3) Basophils (%) (Auto) 0 % (0-3) Neutrophils # (Auto) 10.8 x10^3uL (1.8-7.7) Lymphocytes # (Auto) 1.2 x10^3/uL (1.0-4.8) Monocytes # (Auto) 0.8 x10^3/uL (0.0-1.1) Eosinophils # (Auto) 0.2 x10^3/uL (0.0-0.7) Basophils # (Auto) 0.0 x10^3/uL (0.0-0.2) Sodium Level 147 mmol/L (136-145) Potassium Level 3.2 mmol/L (3.5-5.1) Chloride Level 107 mmol/L (98-107) Carbon Dioxide Level 25 mmol/L (21-32) Anion Gap 15 (6-14) Blood Urea Nitrogen 29 mg/dL (7-20) Creatinine 1.4 mg/dL (0.6-1.0) Estimated GFR (Cockcroft-Gault) 43.1 Glucose Level 116 mg/dL (70-99) Calcium Level 8.7 mg/dL (8.5-10.1) Microbiology 02/22/19 Blood Culture - Final, Complete NO GROWTH AFTER 5 DAYS 03/04/19 AFB Specimen Processing Tissue - Final, Resulted 03/04/19 Acid Fast Bacilli Culture, Resulted Pending 03/04/19 Gram Stain - Final, Resulted 03/04/19 Fungal Culture, Resulted Pending 03/04/19 Fungal Culture Result 1, Resulted Pending 02/22/19 Urine Culture - Final, Complete 02/22/19 Urine Culture Result 1 (JIN) - Final, Complete 02/22/19 Antimicrobic Susceptibility - Final, Complete Medications Current Medications Sodium Chloride 1,000 ml @ 1,000 mls/hr 1X ONCE IV Last administered on 02/22/19at 21:23; Start 02/22/19 at 20:45; Stop 02/22/19 at 21:44; Status DC Acetaminophen (Tylenol) 650 mg 1X ONCE PO Last administered on 02/22/19at 21:22; Start 02/22/19 at 20:45; Stop 02/22/19 at 20:52; Status DC Piperacillin Sod/ Tazobactam Sod (Zosyn Per Pharmacy) 1 each PRN DAILY PRN MC SEE COMMENTS; Start 02/22/19 at 20:45; Stop 02/23/19 at 14:53; Status DC Piperacillin Sod/ Tazobactam Sod 3.375 gm/Sodium Chloride 50 ml @ 100 mls/hr ONCE ONCE IV Last administered on 02/22/19 21:23; Start 02/22/19 at 21:00; Stop 02/22/19 at 21:29; Status DC Sodium Chloride 1,000 ml @ 1,000 mls/hr 1X ONCE IV Last administered on 02/22/19at 23:44; Start 02/22/19 at 23:30; Stop 02/23/19 at 00:29; Status DC Sodium Chloride 1,000 ml @ 75 mls/hr [id number] IV Last administered on 02/23/19at 07:38; Start 02/22/19 at 23:30; Stop 02/23/19 at 08:17; Status DC Iohexol (Omnipaque 300 Mg/ml) 60 ml 1X ONCE IV Last administered on 02/23/19at 00:02; Start 02/23/19 at 00:15; Stop 02/23/19 at 00:16; Status DC Info (CONTRAST GIVEN -- Rx MONITORING) 1 each PRN DAILY PRN MC SEE COMMENTS; Start 02/23/19 at 00:15; Stop 02/25/19 at 00:14; Status DC Piperacillin Sod/ Tazobactam Sod 2.25 gm/Sodium Chloride 50 ml @ 100 mls/hr Q6HRS IV Last administered on 02/23/19at 12:26; Start 02/23/19 at 06:00; Stop 02/23/19 at 14:34; Status DC Sodium Chloride 1,000 ml @ 1,000 mls/hr 1X ONCE IV ; Start 02/23/19 at 01:00; Stop 02/23/19 at 01:45; Status DC Sodium Chloride 500 ml @ 500 mls/hr 1X ONCE IV Last administered on 02/23/19at 02:07; Start 02/23/19 at 02:00; Stop 02/23/19 at 02:59; Status DC Norepinephrine Bitartrate 250 ml @ 0 mls/hr 1X ONCE IV ; Start 02/23/19 at 02:00; Stop 02/23/19 at 02:01; Status DC Sodium Chloride 500 ml @ 500 mls/hr 1X ONCE IV Last administered on 02/23/19at 06:10; Start 02/23/19 at 02:00; Stop 02/23/19 at 02:59; Status DC Norepinephrine Bitartrate 250 ml @ 1.875 mls/ hr CONT PRN IV SEE I/O RECORD Last administered on 02/26/19at 09:00; Start 02/23/19 at 03:15; Stop 02/27/19 at 14:17; Status DC Ondansetron HCl (Zofran) 4 mg PRN Q6HRS PRN IV NAUSEA/VOMITING Last administered on 02/24/19at 23:21; Start 02/23/19 at 03:15 Iohexol (Omnipaque 300 Mg/ml) 100 ml STK-MED ONCE .ROUTE ; Start 02/23/19 at 04:24; Stop 02/23/19 at 04:25; Status DC Sodium Chloride 500 ml @ 500 mls/hr 1X ONCE IV Last administered on 02/23/19at 08:28; Start 02/23/19 at 07:45; Stop 02/23/19 at 08:44; Status DC Acetaminophen (Tylenol) 650 mg PRN Q6HRS PRN PO HEADACHE/ TEMP Last administered on 03/05/19at 04:08; Start 02/23/19 at 08:15 Ringer's Solution 1,000 ml @ 100 mls/hr Q10H IV Last administered on 02/27/19at 23:15; Start 02/23/19 at 08:30; Stop 02/28/19 at 11:55; Status DC Ringer's Solution 500 ml @ 500 mls/hr 1X ONCE IV Last administered on 02/23/19 09:23; Start 02/23/19 at 09:15; Stop 02/23/19 at 10:14; Status DC Dopamine HCl/ Dextrose 250 ml @ 5.749 mls/ hr CONT PRN IV SEE I/O RECORD Last administered on 02/25/19at 05:11; Start 02/23/19 at 12:15 Tramadol HCl (Ultram) 50 mg PRN Q6HRS PRN PO MODERATE PAIN Last administered on 03/06/19at 08:29; Start 02/23/19 at 12:30 Heparin Sodium (Porcine) (Heparin Sodium) 4,000 unit 1X ONCE IV Last administered on 02/23/19 13:30; Start 02/23/19 at 13:00; Stop 02/23/19 at 13:01; Status DC Heparin Sodium/ Dextrose 500 ml @ 0 mls/hr CONT PRN IV SEE I/O RECORD Last administered on 02/25/19at 05:12; Start 02/23/19 at 13:00; Stop 02/26/19 at 13:01; Status DC Heparin Sodium (Porcine) (Heparin Sodium) 1,900 unit PRN Q6HRS PRN IV FOR UFH LEVEL LESS THAN 0.2 Last administered on 02/25/19at 09:35; Start 02/23/19 at 13:00; Stop 02/26/19 at 13:01; Status DC Polyethylene Glycol (miraLAX PACKET) 17 gm PRN BID PRN PO CONSTIPATION Last administered on 02/23/19 14:38; Start 02/23/19 at 13:15; Stop 02/23/19 at 14:59; Status DC Info (Anti-Coagulation Monitoring By Pharmacy) 1 each PRN DAILY PRN MC SEE COMMENTS Last administered on 02/26/19 08:00; Start 02/23/19 at 13:30; Stop 02/26/19 at 13:50; Status DC Temazepam (Restoril) 15 mg PRN QHS PRN PO INSOMNIA Last administered on 03/05/19 21:53; Start 02/23/19 at 14:45 Piperacillin Sod/ Tazobactam Sod 2.25 gm/Sodium Chloride 50 ml @ 100 mls/hr Q6HRS IV ; Start 02/23/19 at 18:00; Stop 02/23/19 at 18:00; Status DC Polyethylene Glycol (miraLAX PACKET) 17 gm BID PO Last administered on 03/04/19 07:54; Start 02/23/19 at 21:00 Multi-Ingredient Ointment (Analgesic [place]) 1 mara PRN QID PRN TP MUSCLE PAIN Last administered on 02/27/19 09:18; Start 02/23/19 at 18:00 Pantoprazole Sodium (Protonix) 40 mg DAILYAC PO Last administered on 03/06/19 08:28; Start 02/24/19 at 17:30 Aspirin (Ecotrin) 325 mg 1X ONCE PO Last administered on 02/25/19 09:31; Start 02/25/19 at 09:15; Stop 02/25/19 at 09:16; Status DC Aspirin (Ecotrin) 81 mg DAILYWBKFT PO Last administered on 03/06/19at 08:28; Start 02/26/19 at 08:00 Potassium Chloride (Klor-Con) 40 meq 1X ONCE PO Last administered on 02/25/19 09:32; Start 02/25/19 at 09:15; Stop 02/25/19 at 09:16; Status DC Magnesium Sulfate/ Dextrose 100 ml @ 25 mls/hr 1X ONCE IV Last administered on 02/25/19 11:49; Start 02/25/19 at 11:30; Stop 02/25/19 at 15:29; Status DC Piperacillin Sod/ Tazobactam Sod (Zosyn Per Pharmacy) 1 each PRN DAILY PRN MC SEE COMMENTS; Start 02/25/19 at 16:45 Piperacillin Sod/ Tazobactam Sod 2.25 gm/Sodium Chloride 50 ml @ 100 mls/hr Q6HRS IV Last administered on 03/06/19at 05:25; Start 02/25/19 at 18:00 Bisacodyl (Dulcolax Tab) 10 mg 1X ONCE PO Last administered on 02/26/19at 10:00; Start 02/26/19 at 10:00; Stop 02/26/19 at 10:01; Status DC Methylprednisolone Acetate (DEPO-Medrol 40MG VIAL) 40 mg 1X ONCE IM ; Start 02/26/19 at 12:15; Stop 02/26/19 at 12:20; Status DC Bupivacaine HCl (Sensorcaine-Mpf 0.25%) 10 ml 1X ONCE IJ ; Start 02/26/19 at 12:15; Stop 02/26/19 at 12:20; Status DC Methylprednisolone Acetate (DEPO-Medrol 40MG VIAL) 40 mg 1X ONCE IM ; Start 02/27/19 at 08:00; Stop 02/27/19 at 08:01; Status DC Bupivacaine HCl (Sensorcaine-Mpf 0.25%) 10 ml 1X ONCE IJ ; Start 02/27/19 at 08:00; Stop 02/27/19 at 08:01; Status DC Lactobacillus Rhamnosus (Culturelle) 1 cap BID PO Last administered on 03/03/19at 09:13; Start 02/26/19 at 21:00; Stop 03/03/19 at 12:23; Status DC Diclofenac Sodium (Voltaren) 1 mara BID TP Last administered on 03/05/19at 08:46; Start 02/26/19 at 21:00 Artificial Tears (Artificial Tears) 1 drop PRN Q2HR PRN OU DRY EYE Last administered on 03/01/19at 21:00; Start 02/26/19 at 19:15 Ketotifen Fumarate (Zaditor) 1 drop 1X ONCE OU Last administered on 02/27/19at 12:21; Start 02/27/19 at 09:30; Stop 02/27/19 at 09:31; Status DC Atorvastatin Calcium (Lipitor) 20 mg QHS PO Last administered on 03/04/19at 21:11; Start 02/27/19 at 21:00; Stop 03/05/19 at 12:19; Status DC Sodium Chloride 500 ml @ 500 mls/hr 1X ONCE IV Last administered on 02/28/19at 09:30; Start 02/28/19 at 09:30; Stop 02/28/19 at 10:29; Status DC Alteplase, Recombinant (Cathflo For Central Catheter Clearance) 1 mg 1X ONCE INT CAT ; Start 02/28/19 at 10:15; Stop 02/28/19 at 10:16; Status DC Sodium Chloride 1,000 ml @ 100 mls/hr Q10H IV Last administered on 02/28/19at 12:05; Start 02/28/19 at 12:00; Stop 02/28/19 at 16:41; Status DC Iohexol (Omnipaque 350 Mg/ml) 90 ml 1X ONCE IV Last administered on 02/28/19at 14:25; Start 02/28/19 at 12:30; Stop 02/28/19 at 12:31; Status DC Albuterol Sulfate (Ventolin Neb Soln) 2.5 mg PRN Q4HRS PRN NEB SHORTNESS OF BREATH Last administered on 03/05/19at 00:46; Start 02/28/19 at 13:30 Furosemide (Lasix) 20 mg 1X ONCE IVP Last administered on 02/28/19at 15:54; Start 02/28/19 at 15:30; Stop 02/28/19 at 15:32; Status DC Bupivacaine HCl (Sensorcaine-Mpf 0.25%) 10 ml STK-MED ONCE .ROUTE ; Start 03/01/19 at 11:00; Stop 03/02/19 at 13:29; Status DC Methylprednisolone Acetate (DEPO-Medrol 40MG VIAL) 40 mg STK-MED ONCE .ROUTE ; Start 03/01/19 at 11:00; Stop 03/02/19 at 13:29; Status DC Metoprolol Tartrate (Lopressor Vial) 5 mg 1X ONCE IVP Last administered on 03/02/19at 18:44; Start 03/02/19 at 18:45; Stop 03/02/19 at 18:46; Status DC Norepinephrine Bitartrate 250 ml @ 1.875 mls/ hr CONT PRN IV SEE I/O RECORD Last administered on 03/03/19at 21:29; Start 03/03/19 at 05:45 Etomidate (Amidate) 20 mg STK-MED ONCE IV ; Start 03/03/19 at 05:44; Stop 03/03/19 at 05:45; Status DC Succinylcholine Chloride (Anectine) 200 mg STK-MED ONCE .ROUTE ; Start 03/03/19 at 05:45; Stop 03/03/19 at 05:46; Status DC Propofol 100 ml @ As Directed STK-MED ONCE IV ; Start 03/03/19 at 06:16; Stop 03/03/19 at 06:17; Status DC Propofol 100 ml @ 1.313 mls/ hr CONT PRN IV SEE I/O RECORD Last administered on 03/04/19at 10:43; Start 03/03/19 at 06:30; Stop 03/04/19 at 19:45; Status DC Midazolam HCl 100 ml @ 5 mls/hr CONT PRN IV SEE I/O RECORD; Start 03/03/19 at 07:00 Chlorhexidine Gluconate (Peridex) 15 ml BID MM Last administered on 03/04/19at 07:55; Start 03/03/19 at 09:00; Stop 03/04/19 at 19:45; Status DC Artificial Tears (Artificial Tears) 1 drop PRN Q1HR PRN OU DRY EYE; Start 03/03/19 at 07:00; Status UNV Ketotifen Fumarate (Zaditor) 1 drop DAILY PRN OU ITCHING Last administered on 03/04/19at 07:55; Start 03/03/19 at 10:45 Heparin Sodium (Porcine) (Heparin Sodium) 5,000 unit Q8HRS SQ Last administered on 03/03/19at 21:28; Start 03/03/19 at 22:00; Stop 03/04/19 at 12:48; Status DC Iodixanol (Visipaque 320) 100 ml STK-MED ONCE .ROUTE ; Start 03/03/19 at 15:19; Stop 03/03/19 at 15:20; Status DC Lidocaine HCl (Xylocaine-Mpf 1% 2ml Vial) 2 ml STK-MED ONCE .ROUTE ; Start 03/03/19 at 15:19; Stop 03/03/19 at 15:20; Status DC Heparin Sodium/ Sodium Chloride 1,000 ml @ As Directed STK-MED ONCE .ROUTE ; Start 03/03/19 at 15:19; Stop 03/03/19 at 15:20; Status DC Heparin Sodium (Porcine) (Heparin Sodium) 10,000 unit STK-MED ONCE .ROUTE ; Start 03/03/19 at 15:46; Stop 03/03/19 at 15:47; Status DC Verapamil HCl (Verapamil) 5 mg STK-MED ONCE .ROUTE ; Start 03/03/19 at 15:46; Stop 03/03/19 at 15:47; Status DC Nitroglycerin (Nitroglycerin) 200 mcg STK-MED ONCE .ROUTE ; Start 03/03/19 at 15:47; Stop 03/03/19 at 15:48; Status DC Lidocaine HCl (Lidocaine 1% 20ml Vial) 20 ml STK-MED ONCE .ROUTE ; Start 03/03/19 at 15:56; Stop 03/03/19 at 15:57; Status DC Nitroglycerin (Nitroglycerin) 200 mcg STK-MED ONCE .ROUTE ; Start 03/03/19 at 16:11; Stop 03/03/19 at 16:12; Status DC Iodixanol (Visipaque 320) 100 ml STK-MED ONCE .ROUTE ; Start 03/03/19 at 16:49; Stop 03/03/19 at 16:50; Status DC Heparin Sodium/ Sodium Chloride (HEPARIN for ARTERIAL LINE FLUSH) 1,000 unit 1X ONCE IART Last administered on 03/03/19at 17:00; Start 03/03/19 at 17:00; Stop 03/03/19 at 17:02; Status DC Heparin Sodium/ Sodium Chloride (HEPARIN for ARTERIAL LINE FLUSH) 1,000 unit 1X ONCE IART Last administered on 03/03/19at 17:00; Start 03/03/19 at 17:00; Stop 03/03/19 at 17:02; Status DC Iodixanol (Visipaque 320) 100 ml 1X ONCE IART Last administered on 03/03/19at 17:00; Start 03/03/19 at 17:00; Stop 03/03/19 at 17:02; Status DC Heparin Sodium (Porcine) (Heparin Sodium) 6,500 unit 1X ONCE IV Last administered on 03/03/19at 17:00; Start 03/03/19 at 17:00; Stop 03/03/19 at 17:02; Status DC Lidocaine HCl (Lidocaine 1% 20ml Vial) 20 ml 1X ONCE INJ Last administered on 03/03/19at 17:00; Start 03/03/19 at 17:00; Stop 03/03/19 at 17:02; Status DC Ticagrelor (Brilinta) 90 mg STK-MED ONCE .ROUTE ; Start 03/03/19 at 17:02; Stop 03/03/19 at 17:03; Status DC Heparin Sodium/ Sodium Chloride 500 ml @ As Directed STK-MED ONCE .ROUTE ; Start 03/03/19 at 17:04; Stop 03/03/19 at 17:05; Status DC Ticagrelor (Brilinta) 180 mg 1X ONCE GT Last administered on 03/03/19at 17:15; Start 03/03/19 at 17:15; Stop 03/03/19 at 17:16; Status DC Lidocaine HCl (Lidocaine 2% Viscous) 100 ml PRN 1X PRN MM MOUTH PAIN Last administered on 03/04/19at 10:50; Start 03/04/19 at 10:45; Stop 03/05/19 at 10:44; Status DC Lidocaine HCl (Lidocaine 1% 20ml Vial) 20 ml PRN 1X PRN INJ SEE COMMENTS Last administered on 03/04/19at 10:50; Start 03/04/19 at 10:45; Stop 03/05/19 at 10:44; Status DC Ticagrelor (Brilinta) 90 mg BID PO Last administered on 03/06/19at 08:30; Start 03/04/19 at 13:30 Potassium Chloride/Water 100 ml @ 100 mls/hr Q1H IV Last administered on 03/04/19at 14:09; Start 03/04/19 at 14:30; Stop 03/04/19 at 15:29; Status DC Digoxin (Lanoxin) 500 mcg 1X ONCE IV Last administered on 03/04/19at 15:24; Start 03/04/19 at 15:15; Stop 03/04/19 at 15:16; Status DC Furosemide (Lasix) 20 mg 1X ONCE IVP Last administered on 03/04/19at 15:48; Start 03/04/19 at 15:45; Stop 03/04/19 at 15:46; Status DC Metoprolol Tartrate (Lopressor Vial) 5 mg 1X ONCE IVP Last administered on 03/04/19 16:53; Start 03/04/19 at 15:45; Stop 03/04/19 at 15:46; Status DC Fentanyl Citrate (Fentanyl 2ml Vial) 25 mcg PRN Q1HR PRN IV PAIN Last administered on 03/05/19 11:45; Start 03/04/19 at 16:00 Metoprolol Tartrate (Lopressor) 25 mg Q6HRS PO Last administered on 03/06/19 05:25; Start 03/04/19 at 19:00 Metoprolol Tartrate (Lopressor Vial) 5 mg PRN Q4HRS PRN IVP HR > 130; Start 03/04/19 at 18:45 Digoxin (Lanoxin) 500 mcg 1X ONCE IV Last administered on 03/05/19 00:06; Start 03/05/19 at 00:00; Stop 03/05/19 at 00:01; Status DC Furosemide (Lasix) 40 mg 1X ONCE IVP Last administered on 03/05/19 10:21; Start 03/05/19 at 09:00; Stop 03/05/19 at 09:01; Status DC Epinephrine HCl (EPINEPHrine SYRINGE) 3 mg STK-MED ONCE .ROUTE ; Start 03/02/19 at 10:00; Stop 03/05/19 at 10:46; Status DC Atorvastatin Calcium (Lipitor) 40 mg QHS PO Last administered on 03/05/19 21:53; Start 03/05/19 at 21:00 Acetaminophen/ Hydrocodone Bitart (Lortab 5/325) 1 tab PRN Q6HRS PRN PO SEVERE PAIN Last administered on 03/06/19 05:25; Start 03/05/19 at 12:30 Lidocaine (Lidoderm) 1 patch DAILY TD Last administered on 03/06/19 08:30; Start 03/05/19 at 13:00 Miscellaneous (Lidoderm Patch Removal) 1 ea QHS MC Last administered on 03/05/19 21:00; Start 03/05/19 at 21:00 Active Scripts Active Reported Amlodipine Besylate 10 Mg Tablet 10 Mg PO DAILY Tramadol Hcl 50 Mg Tablet 50 Mg PO Q4H PRN Fish Oil 1,000 Mg Capsule ([place]-3 Fatty Acids/Fish Oil) 1 Each Capsule 1 Each PO Vitamin D3 (Cholecalciferol (Vitamin D3)) 5,000 Unit Capsule 5,000 Unit PO Acetaminophen 500 Mg Tablet 500 Mg PO Aspir 81 (Aspirin) 81 Mg Tablet.dr 81 Mg PO Hydrochlorothiazide Tablet (Hydrochlorothiazide) 25 Mg Tablet 25 Mg PO DAILY Pravastatin Sodium 40 Mg Tablet 40 Mg PO DAILY Miralax (Polyethylene Glycol 3350) 17 Gm Powd.pack 1 Pkt PO DAILY [fiber] Temazepam 30 Mg Capsule 30 Mg PO HS PRN Cozaar (Losartan Potassium) 100 Mg Tablet 100 Mg PO DAILY Vitals/I & O Vital Sign - Last 24 Hours 03/05/19 03/05/19 03/05/19 03/05/19 10:00 11:00 11:45 12:00 Temp 98.4 98.4 Pulse 66 66 64 Resp 28 22 B/P (MAP) 122/59 (80) 134/56 (82) 115/58 (77) Pulse Ox 97 99 100 99 O2 Delivery Nasal Cannula Nasal Cannula Nasal Cannula Nasal Cannula O2 Flow Rate 2.0 2.0 2.0 2.0 03/05/19 03/05/19 03/05/19 03/05/19 12:00 12:15 12:49 13:00 Pulse 64 64 Resp 26 B/P (MAP) 115/58 134/59 (84) Pulse Ox 98 97 O2 Delivery Nasal Cannula Nasal Cannula Nasal Cannula O2 Flow Rate 2.0 2.0 2.0 03/05/19 03/05/19 03/05/19 03/05/19 14:00 15:00 15:48 17:41 Temp 98.2 98.2 Pulse 66 80 69 Resp 22 26 18 B/P (MAP) 111/46 (67) 132/64 (86) 125/53 (77) Pulse Ox 98 96 O2 Delivery Nasal Cannula Nasal Cannula Nasal Cannula O2 Flow Rate 2.0 2.0 2.0 2.0 03/05/19 03/05/19 03/05/19 03/05/19 17:45 17:54 20:00 20:31 Temp 97.6 97.6 Pulse 69 61 Resp 18 B/P (MAP) 125/53 126/56 (79) Pulse Ox 96 O2 Delivery Nasal Cannula Nasal Cannula Nasal Cannula O2 Flow Rate 3.0 3.0 2.0 03/05/19 03/05/19 03/05/19 03/05/19 21:53 22:53 23:22 23:45 Temp 98.1 98.1 Pulse 61 61 Resp 18 18 17 B/P (MAP) 126/56 106/49 (68) Pulse Ox 96 96 96 O2 Delivery Nasal Cannula Nasal Cannula Nasal Cannula O2 Flow Rate 2.0 2.0 2.0 03/06/19 03/06/19 03/06/19 03/06/19 04:07 05:25 05:25 06:25 Temp 98.3 98.3 Pulse 64 64 Resp 19 18 18 B/P (MAP) 109/52 (71) 109/52 Pulse Ox 93 93 93 O2 Delivery Nasal Cannula Nasal Cannula Nasal Cannula O2 Flow Rate 2.0 03/06/19 03/06/19 07:47 08:29 Temp 98.0 98.0 Pulse 58 Resp 20 B/P (MAP) 140/63 (88) Pulse Ox 94 94 O2 Delivery Nasal Cannula Nasal Cannula O2 Flow Rate 2.0 2.0 Intake and Output 03/05/19 03/05/19 03/06/19 15:00 23:00 07:00 Intake Total 200 ml 250 ml Output Total 225 ml 600 ml Balance -25 ml -350 ml Nutrition Consultation Dietary Evaluation: Recommendations by RD: Increase Calorie Intake, Protein supplementation Comments: Continue w/cardiac/GI soft diet as ordered, honor food preferences and provide snacks as requested REC Ensure (strawberry) BID w/lunch and dinner Expected Outcomes/Goals: New goal 03/03: TF infusion for nutrition needs while pt remains intubated - met, new goal established New goal 03/05: PO intake to meet >75% est needs Malnutrition Findings: Food and Nutrition Intake (Mod: <75% est energy req 7days Weight Status: Appropriate CHRIS MINAYA MD March 06, 2019 09:12
--- NOTE | 2019-03-06 10:56 | PDOC ---
PULMONARY PROGRESS NOTES Subjective EXTUBATED 03/04, ON CANULA DEVELOPED A-FIB/RVR/ RESOLVED S/P PEA Vitals Vital Signs Date Time Temp Pulse Resp B/P (MAP) Pulse Ox O2 Delivery O2 Flow Rate FiO2 03/06/19 08:29 94 Nasal Cannula 2.0 03/06/19 07:47 98.0 58 20 140/63 (88) 98.0 General: Alert, No acute distress Lungs: Clear, Other (decrease bs) Cardiovascular: S1, S2 Abdomen: Soft Extremities: No Edema Skin: Warm, Dry Labs Laboratory Tests Test 03/04/19 12:50 03/04/19 13:10 03/05/19 06:00 03/06/19 06:30 White Blood Count 12.1 x10^3/uL (4.0-11.0) 12.5 x10^3/uL (4.0-11.0) 12.9 x10^3/uL (4.0-11.0) Red Blood Count 2.72 x10^6/uL (3.50-5.40) 2.28 x10^6/uL (3.50-5.40) 2.67 x10^6/uL (3.50-5.40) Hemoglobin 8.6 g/dL (12.0-15.5) 7.3 g/dL (12.0-15.5) 8.3 g/dL (12.0-15.5) Hematocrit 26.0 % (36.0-47.0) 21.9 % (36.0-47.0) 25.4 % (36.0-47.0) Mean Corpuscular Volume 95 fL (79-100) 96 fL (79-100) 95 fL (79-100) Mean Corpuscular Hemoglobin 32 pg (25-35) 32 pg (25-35) 31 pg (25-35) Mean Corpuscular Hemoglobin Concent 33 g/dL (31-37) 33 g/dL (31-37) 33 g/dL (31-37) Red Cell Distribution Width 14.4 % (11.5-14.5) 14.2 % (11.5-14.5) 14.0 % (11.5-14.5) Platelet Count 339 x10^3/uL (140-400) 332 x10^3/uL (140-400) 351 x10^3/uL (140-400) O2 Saturation 96 % (92-99) Arterial Blood pH 7.48 (7.35-7.45) Arterial Blood pCO2 at Patient Temp 31 mmHg (35-46) Arterial Blood pO2 at Patient Temp 87 mmHg (65-108) Arterial Blood HCO3 23 mmol/L (21-28) Arterial Blood Base Excess 0 mmol/L (-3-3) FiO2 40 Neutrophils (%) (Auto) 81 % (31-73) 84 % (31-73) Lymphocytes (%) (Auto) 10 % (24-48) 9 % (24-48) Monocytes (%) (Auto) 7 % (0-9) 6 % (0-9) Eosinophils (%) (Auto) 1 % (0-3) 1 % (0-3) Basophils (%) (Auto) 1 % (0-3) 0 % (0-3) Neutrophils # (Auto) 10.1 x10^3uL (1.8-7.7) 10.8 x10^3uL (1.8-7.7) Lymphocytes # (Auto) 1.3 x10^3/uL (1.0-4.8) 1.2 x10^3/uL (1.0-4.8) Monocytes # (Auto) 0.9 x10^3/uL (0.0-1.1) 0.8 x10^3/uL (0.0-1.1) Eosinophils # (Auto) 0.1 x10^3/uL (0.0-0.7) 0.2 x10^3/uL (0.0-0.7) Basophils # (Auto) 0.1 x10^3/uL (0.0-0.2) 0.0 x10^3/uL (0.0-0.2) Sodium Level 147 mmol/L (136-145) 147 mmol/L (136-145) Potassium Level 3.4 mmol/L (3.5-5.1) 3.2 mmol/L (3.5-5.1) Chloride Level 108 mmol/L (98-107) 107 mmol/L (98-107) Carbon Dioxide Level 25 mmol/L (21-32) 25 mmol/L (21-32) Anion Gap 14 (6-14) 15 (6-14) Blood Urea Nitrogen 27 mg/dL (7-20) 29 mg/dL (7-20) Creatinine 1.5 mg/dL (0.6-1.0) 1.4 mg/dL (0.6-1.0) Estimated GFR (Cockcroft-Gault) 39.8 43.1 Glucose Level 76 mg/dL (70-99) 116 mg/dL (70-99) Calcium Level 8.6 mg/dL (8.5-10.1) 8.7 mg/dL (8.5-10.1) Laboratory Tests Test 03/06/19 06:30 White Blood Count 12.9 x10^3/uL (4.0-11.0) Red Blood Count 2.67 x10^6/uL (3.50-5.40) Hemoglobin 8.3 g/dL (12.0-15.5) Hematocrit 25.4 % (36.0-47.0) Mean Corpuscular Volume 95 fL (79-100) Mean Corpuscular Hemoglobin 31 pg (25-35) Mean Corpuscular Hemoglobin Concent 33 g/dL (31-37) Red Cell Distribution Width 14.0 % (11.5-14.5) Platelet Count 351 x10^3/uL (140-400) Neutrophils (%) (Auto) 84 % (31-73) Lymphocytes (%) (Auto) 9 % (24-48) Monocytes (%) (Auto) 6 % (0-9) Eosinophils (%) (Auto) 1 % (0-3) Basophils (%) (Auto) 0 % (0-3) Neutrophils # (Auto) 10.8 x10^3uL (1.8-7.7) Lymphocytes # (Auto) 1.2 x10^3/uL (1.0-4.8) Monocytes # (Auto) 0.8 x10^3/uL (0.0-1.1) Eosinophils # (Auto) 0.2 x10^3/uL (0.0-0.7) Basophils # (Auto) 0.0 x10^3/uL (0.0-0.2) Sodium Level 147 mmol/L (136-145) Potassium Level 3.2 mmol/L (3.5-5.1) Chloride Level 107 mmol/L (98-107) Carbon Dioxide Level 25 mmol/L (21-32) Anion Gap 15 (6-14) Blood Urea Nitrogen 29 mg/dL (7-20) Creatinine 1.4 mg/dL (0.6-1.0) Estimated GFR (Cockcroft-Gault) 43.1 Glucose Level 116 mg/dL (70-99) Calcium Level 8.7 mg/dL (8.5-10.1) Medications Active Scripts Medications Dose Route/Sig Max Daily Dose Days Date Category Amlodipine Besylate 10 Mg Tablet 10 Mg PO DAILY 09/23/16 Reported Tramadol Hcl 50 Mg Tablet 50 Mg PO Q4H PRN 04/07/14 Reported Fish Oil 1,000 Mg Capsule ([place]-3 Fatty Acids/Fish Oil) 1 Each Capsule 1 Each PO 04/07/14 Reported Vitamin D3 (Cholecalciferol (Vitamin D3)) 5,000 Unit Capsule 5,000 Unit PO 04/07/14 Reported Acetaminophen 500 Mg Tablet 500 Mg PO 04/07/14 Reported Aspir 81 (Aspirin) 81 Mg Tablet.dr 81 Mg PO 04/07/14 Reported Hydrochlorothiazide Tablet (Hydrochlorothiazide) 25 Mg Tablet 25 Mg PO DAILY 04/07/14 Reported Pravastatin Sodium 40 Mg Tablet 40 Mg PO DAILY 04/07/14 Reported Miralax (Polyethylene Glycol 3350) 17 Gm Powd.pack 1 Pkt PO DAILY 04/07/14 Reported [fiber] 04/07/14 Reported Temazepam 30 Mg Capsule 30 Mg PO HS PRN 04/07/14 Reported Cozaar (Losartan Potassium) 100 Mg Tablet 100 Mg PO DAILY 04/07/14 Reported Comments cxr 03/05 bilateral infiltrates, no change Impression . IMPRESSION: 1. Acute hypoxemic respiratory failure.extubated 03/04 2. Persistent bilateral infiltrates ,suspect combination of acute on chronic diastolic heart failure./pneumonia. No alveolar Hr . s/p [place], diffuse erythema of airway, RESOLVED INFILTRATES 03/06 3. Acute diastolic heart failure. 4. Non-ST segment elevation myocardial infarction. 5. Recent sepsis and hypotension, improved. 6. Peripheral vascular disease, status post previous fem-pop and carotid endarterectomy. 7. Valvular heart disease. 8/ S/P CARDIOPULMONARY ARREST IN HOUSE 03/02 9. s/p cath, LM stent, increase filling pressures CT Impression: No pulmonary arterial thromboembolic disease although evaluation may be limited in regions of bibasilar lower lobe passive atelectasis due to moderate-sized bilateral pleural effusions. Centrilobular emphysema. Plan . NASAL CANULA FOLLOW BRONCH CULTURES/ NEG GS D/W RN MONITOR HB FOLLOW CARD REC DIURESE PER CARD/ RESOLVED CHF ON 03/06 CXR PROCALCITONIN 1.18 NOT NOT VERY HIGH NEB D/W FAMILY ABX OK WITH SKILL TX MAURI CHAPA MD March 06, 2019 10:56
--- NOTE | 2019-03-06 10:56 | PDOC3 ---
Discharge Summary Date of Admission: February 22, 2019 Date of Discharge: March 06, 2019 Follow-Up: 1-2 days Admitting Diagnosis comment: DISCHARGE DX Status post CODE BLUE 03/04 back in ICU EXTUBATED 03/04 sepsis with resolving hypotension Sudden dyspnea: mild CHF NSTEMI: PAD Hx of HTN Valvular insufficiency: Mild AI, mild to mod MR, Mild TR Mild Colonic ileus A-FIB RVR moderate pulmonary hypertension. The PA pressure was estimated at 55 mmHg. HYPOKALEMIA S/p cardiac cath PCI to open left main 03/03 Successful PCI of the LM with a 4.0/12 mm DRE, post-dilated with a 4.5 mm NC balloon. s/p code blue, PEA Leukocytosis, likely reactive and s/p solumedrol 03/01 - SEBAS -mild increase Anemia Hypotension - ofF pressors E. coli UTI, POA, 02/22 on Zosyn D/C 03/06 Lactic acidosis, Pulmonary effusions Improved bilateral interstitial lung markings likely congestive changes. 03/06 CXR ckd stage 3 HYPOKALEMIA replaced Secondary prevention; BB, statin, DAPT with ASA/Brilinta to HEALTH CARE RESORT TODAY 36 MIN D/C PLANNING TIME History of Present Illness History of Present Illness Patient seen and examined Daughter is present I discussed with her in the nurse Reviewed the code with the nurse CODE Events 2 days ago The patient became very anxious and then went into the PEA was coded for 9 minutes including compressions and intubation CARDIOLOGY FOLLOWING Discontinue Zosyn - LEFT VENTRICLE The left ventricle is normal size. There is borderline concentric left ventricular hypertrophy. Left ventricle systolic function is low normal. The Ejection Fraction is 50-55%. There is normal LV segmental wall motion. Transmitral Doppler flow pattern is Grade I-abnormal relaxation pattern. RIGHT VENTRICLE The right ventricle is normal size. There is normal right ventricular wall thickness. The right ventricular systolic function is normal. ATRIA The left atrium size is normal. The right atrium size is normal. The interatrial septum is intact with no evidence for an atrial septal defect or patent foramen ovale as noted on 2-D or Doppler imaging. AORTIC VALVE The aortic valve is thickened but opens well. The aortic valve is trileaflet. Doppler and Color Flow revealed trace to mild aortic regurgitation. There is no significant aortic valvular stenosis. MITRAL VALVE The mitral valve is thickened but opens well. There is no evidence of mitral valve prolapse. There is no mitral valve stenosis. Doppler and Color-flow revealed mild to moderate mitral regurgitation. TRICUSPID VALVE The tricuspid valve is normal in structure and function. Doppler and Color Flow revealed mild tricuspid regurgitation. There is moderate pulmonary hypertension. The PA pressure was estimated at 55 mmHg. There is no tricuspid valve prolapse or vegetation. PULMONIC VALVE The pulmonic valve is not well visualized. GREAT VESSELS The aortic root is normal in size. The ascending aorta is normal in size. The IVC is dilated and collapses >50% with inspiration. PERICARDIAL EFFUSION There is no evidence of significant pericardial effusion. Critical Notification Critical Value: No <Conclusion> The left ventricle is normal size. Left ventricle systolic function is low normal. The Ejection Fraction is 50-55%. There is borderline concentric left ventricular hypertrophy. There is no significant aortic valvular stenosis. Doppler and Color Flow revealed trace to mild aortic regurgitation. Doppler and Color-flow revealed mild to moderate mitral regurgitation. Doppler and Color Flow revealed mild tricuspid regurgitation. There is moderate pulmonary hypertension. The PA pressure was estimated at 55 mmHg. Signed by : Hussain Cormier MD Electronically Approved : 02/24/2019 12:34:10 Vitals Vitals Vital Signs Date Time Temp Pulse Resp B/P (MAP) Pulse Ox O2 Delivery O2 Flow Rate FiO2 03/06/19 08:29 94 Nasal Cannula 2.0 03/06/19 07:47 98.0 58 20 140/63 (88) 98.0 Physical Exam Physical Exam GENERAL: Alert and NAD. Coop HEENT: Pupils equally round, small. Normal conjunctivae. OC/Op - clear NECK: Supple. LUNGS: CTA HEART: IRRR ABDOMEN: Soft, NT. No guard/rebound. mild distention : Leach in place EXTREMITIES: No gross edema or cyanosis. SKIN: Warm without generalized rash. NEUROLOGIC: Answers questions and follows commands RUE-PICC (02/25) without signs of any complications. Right groin line is clean General: Alert, Oriented X3, Cooperative, No acute distress, Other (improved appearance) Heart: Other (soft S1-S2 intermittent tachycardia) Lungs: Clear, Other (decrease bs) Abdomen: Normal bowel sounds Extremities: No clubbing, No cyanosis, No edema, Other (Decreased peripheral pulses in RUE, LUE and LLE, good pulses RLE) Skin: No rashes, No breakdown, No significant lesion Labs LABS EXAM: CHEST 1 VIEW History: Pulmonary infiltrates COMPARISON: 03/05/2019 TECHNIQUE: Single portable radiograph of the chest FINDINGS: Low lung volumes and technique accentuates heart size and pulmonary vascularity. Mild cardiomegaly. Right-sided PICC line is unchanged. Improved bilateral interstitial lung markings likely congestive changes. IMPRESSION: 1. Improved congestive changes FINAL DIAGNOSIS Problems Medical Problems: (1) Septic shock Status: Acute Brief Hospital Course Ms. Soares is a 84 old [sex] who presented with [ACUTE CORONARY SYNDROME/ IA ] CONDITION AT DISCHARGE: Improved Discharge Medications Current Medications Sodium Chloride 1,000 ml @ 1,000 mls/hr 1X ONCE IV Last administered on 02/22/19at 21:23; Start 02/22/19 at 20:45; Stop 02/22/19 at 21:44; Status DC Acetaminophen (Tylenol) 650 mg 1X ONCE PO Last administered on 02/22/19at 21:22; Start 02/22/19 at 20:45; Stop 02/22/19 at 20:52; Status DC Piperacillin Sod/ Tazobactam Sod (Zosyn Per Pharmacy) 1 each PRN DAILY PRN MC SEE COMMENTS; Start 02/22/19 at 20:45; Stop 02/23/19 at 14:53; Status DC Piperacillin Sod/ Tazobactam Sod 3.375 gm/Sodium Chloride 50 ml @ 100 mls/hr ONCE ONCE IV Last administered on 02/22/19at 21:23; Start 02/22/19 at 21:00; Stop 02/22/19 at 21:29; Status DC Sodium Chloride 1,000 ml @ 1,000 mls/hr 1X ONCE IV Last administered on 02/22/19at 23:44; Start 02/22/19 at 23:30; Stop 02/23/19 at 00:29; Status DC Sodium Chloride 1,000 ml @ 75 mls/hr [id number] IV Last administered on 02/23/19at 07:38; Start 02/22/19 at 23:30; Stop 02/23/19 at 08:17; Status DC Iohexol (Omnipaque 300 Mg/ml) 60 ml 1X ONCE IV Last administered on 02/23/19at 00:02; Start 02/23/19 at 00:15; Stop 02/23/19 at 00:16; Status DC Info (CONTRAST GIVEN -- Rx MONITORING) 1 each PRN DAILY PRN MC SEE COMMENTS; Start 02/23/19 at 00:15; Stop 02/25/19 at 00:14; Status DC Piperacillin Sod/ Tazobactam Sod 2.25 gm/Sodium Chloride 50 ml @ 100 mls/hr Q6HRS IV Last administered on 02/23/19at 12:26; Start 02/23/19 at 06:00; Stop 02/23/19 at 14:34; Status DC Sodium Chloride 1,000 ml @ 1,000 mls/hr 1X ONCE IV ; Start 02/23/19 at 01:00; Stop 02/23/19 at 01:45; Status DC Sodium Chloride 500 ml @ 500 mls/hr 1X ONCE IV Last administered on 02/23/19at 02:07; Start 02/23/19 at 02:00; Stop 02/23/19 at 02:59; Status DC Norepinephrine Bitartrate 250 ml @ 0 mls/hr 1X ONCE IV ; Start 02/23/19 at 02:00; Stop 02/23/19 at 02:01; Status DC Sodium Chloride 500 ml @ 500 mls/hr 1X ONCE IV Last administered on 02/23/19at 06:10; Start 02/23/19 at 02:00; Stop 02/23/19 at 02:59; Status DC Norepinephrine Bitartrate 250 ml @ 1.875 mls/ hr CONT PRN IV SEE I/O RECORD La st administered on 02/26/19at 09:00; Start 02/23/19 at 03:15; Stop 02/27/19 at 14:17; Status DC Ondansetron HCl (Zofran) 4 mg PRN Q6HRS PRN IV NAUSEA/VOMITING Last administered on 02/24/19at 23:21; Start 02/23/19 at 03:15 Iohexol (Omnipaque 300 Mg/ml) 100 ml STK-MED ONCE .ROUTE ; Start 02/23/19 at 04:24; Stop 02/23/19 at 04:25; Status DC Sodium Chloride 500 ml @ 500 mls/hr 1X ONCE IV Last administered on 02/23/19 08:28; Start 02/23/19 at 07:45; Stop 02/23/19 at 08:44; Status DC Acetaminophen (Tylenol) 650 mg PRN Q6HRS PRN PO HEADACHE/ TEMP Last administered on 03/05/19 04:08; Start 02/23/19 at 08:15 Ringer's Solution 1,000 ml @ 100 mls/hr Q10H IV Last administered on 02/27/19 23:15; Start 02/23/19 at 08:30; Stop 02/28/19 at 11:55; Status DC Ringer's Solution 500 ml @ 500 mls/hr 1X ONCE IV Last administered on 02/23/19 09:23; Start 02/23/19 at 09:15; Stop 02/23/19 at 10:14; Status DC Dopamine HCl/ Dextrose 250 ml @ 5.749 mls/ hr CONT PRN IV SEE I/O RECORD Last administered on 02/25/19 05:11; Start 02/23/19 at 12:15 Tramadol HCl (Ultram) 50 mg PRN Q6HRS PRN PO MODERATE PAIN Last administered on 03/06/19 08:29; Start 02/23/19 at 12:30 Heparin Sodium (Porcine) (Heparin Sodium) 4,000 unit 1X ONCE IV Last administered on 02/23/19 13:30; Start 02/23/19 at 13:00; Stop 02/23/19 at 13:01; Status DC Heparin Sodium/ Dextrose 500 ml @ 0 mls/hr CONT PRN IV SEE I/O RECORD Last administered on 02/25/19 05:12; Start 02/23/19 at 13:00; Stop 02/26/19 at 13:01; Status DC Heparin Sodium (Porcine) (Heparin Sodium) 1,900 unit PRN Q6HRS PRN IV FOR UFH LEVEL LESS THAN 0.2 Last administered on 02/25/19 09:35; Start 02/23/19 at 13:00; Stop 02/26/19 at 13:01; Status DC Polyethylene Glycol (miraLAX PACKET) 17 gm PRN BID PRN PO CONSTIPATION Last administered on 02/23/19 14:38; Start 02/23/19 at 13:15; Stop 02/23/19 at 14:59; Status DC Info (Anti-Coagulation Monitoring By Pharmacy) 1 each PRN DAILY PRN MC SEE COM MENTS Last administered on 02/26/19 08:00; Start 02/23/19 at 13:30; Stop 02/26/19 at 13:50; Status DC Temazepam (Restoril) 15 mg PRN QHS PRN PO INSOMNIA Last administered on 03/05/19 21:53; Start 02/23/19 at 14:45 Piperacillin Sod/ Tazobactam Sod 2.25 gm/Sodium Chloride 50 ml @ 100 mls/hr Q6HRS IV ; Start 02/23/19 at 18:00; Stop 02/23/19 at 18:00; Status DC Polyethylene Glycol (miraLAX PACKET) 17 gm BID PO Last administered on 03/04/19 07:54; Start 02/23/19 at 21:00 Multi-Ingredient Ointment (Analgesic Haigler) 1 mara PRN QID PRN TP MUSCLE PAIN Last administered on 02/27/19 09:18; Start 02/23/19 at 18:00 Pantoprazole Sodium (Protonix) 40 mg DAILYAC PO Last administered on 03/06/19 08:28; Start 02/24/19 at 17:30 Aspirin (Ecotrin) 325 mg 1X ONCE PO Last administered on 02/25/19 09:31; Start 02/25/19 at 09:15; Stop 02/25/19 at 09:16; Status DC Aspirin (Ecotrin) 81 mg DAILYWBKFT PO Last administered on 03/06/19 08:28; Start 02/26/19 at 08:00 Potassium Chloride (Klor-Con) 40 meq 1X ONCE PO Last administered on 02/25/19at 09:32; Start 02/25/19 at 09:15; Stop 02/25/19 at 09:16; Status DC Magnesium Sulfate/ Dextrose 100 ml @ 25 mls/hr 1X ONCE IV Last administered on 02/25/19at 11:49; Start 02/25/19 at 11:30; Stop 02/25/19 at 15:29; Status DC Piperacillin Sod/ Tazobactam Sod (Zosyn Per Pharmacy) 1 each PRN DAILY PRN MC SEE COMMENTS; Start 02/25/19 at 16:45; Stop 03/06/19 at 09:59; Status DC Piperacillin Sod/ Tazobactam Sod 2.25 gm/Sodium Chloride 50 ml @ 100 mls/hr Q6HRS IV Last administered on 03/06/19at 05:25; Start 02/25/19 at 18:00; Stop 03/06/19 at 09:59; Status DC Bisacodyl (Dulcolax Tab) 10 mg 1X ONCE PO Last administered on 02/26/19at 10:00; Start 02/26/19 at 10:00; Stop 02/26/19 at 10:01; Status DC Methylprednisolone Acetate (DEPO-Medrol 40MG VIAL) 40 mg 1X ONCE IM ; Start 02/26/19 at 12:15; Stop 02/26/19 at 12:20; Status DC Bupivacaine HCl (Sensorcaine-Mpf 0.25%) 10 ml 1X ONCE IJ ; Start 02/26/19 at 12:15; Stop 02/26/19 at 12:20; Status DC Methylprednisolone Acetate (DEPO-Medrol 40MG VIAL) 40 mg 1X ONCE IM ; Start 02/27/19 at 08:00; Stop 02/27/19 at 08:01; Status DC Bupivacaine HCl (Sensorcaine-Mpf 0.25%) 10 ml 1X ONCE IJ ; Start 02/27/19 at 08:00; Stop 02/27/19 at 08:01; Status DC Lactobacillus Rhamnosus (Culturelle) 1 cap BID PO Last administered on 03/03/19at 09:13; Start 02/26/19 at 21:00; Stop 03/03/19 at 12:23; Status DC Diclofenac Sodium (Voltaren) 1 mara BID TP Last administered on 03/05/19at 08:46; Start 02/26/19 at 21:00 Artificial Tears (Artificial Tears) 1 drop PRN Q2HR PRN OU DRY EYE Last administered on 03/01/19at 21:00; Start 02/26/19 at 19:15 Ketotifen Fumarate (Zaditor) 1 drop 1X ONCE OU Last administered on 02/27/19at 12:21; Start 02/27/19 at 09:30; Stop 02/27/19 at 09:31; Status DC Atorvastatin Calcium (Lipitor) 20 mg QHS PO Last administered on 03/04/19at 21:11; Start 02/27/19 at 21:00; Stop 03/05/19 at 12:19; Status DC Sodium Chloride 500 ml @ 500 mls/hr 1X ONCE IV Last administered on 02/28/19at 09:30; Start 02/28/19 at 09:30; Stop 02/28/19 at 10:29; Status DC Alteplase, Recombinant (Cathflo For Central Catheter Clearance) 1 mg 1X ONCE INT CAT ; Start 02/28/19 at 10:15; Stop 02/28/19 at 10:16; Status DC Sodium Chloride 1,000 ml @ 100 mls/hr Q10H IV Last administered on 02/28/19at 12:05; Start 02/28/19 at 12:00; Stop 02/28/19 at 16:41; Status DC Iohexol (Omnipaque 350 Mg/ml) 90 ml 1X ONCE IV Last administered on 02/28/19at 14:25; Start 02/28/19 at 12:30; Stop 02/28/19 at 12:31; Status DC Albuterol Sulfate (Ventolin Neb Soln) 2.5 mg PRN Q4HRS PRN NEB SHORTNESS OF BREATH Last administered on 03/05/19at 00:46; Start 02/28/19 at 13:30 Furosemide (Lasix) 20 mg 1X ONCE IVP Last administered on 02/28/19at 15:54; Start 02/28/19 at 15:30; Stop 02/28/19 at 15:32; Status DC Bupivacaine HCl (Sensorcaine-Mpf 0.25%) 10 ml STK-MED ONCE .ROUTE ; Start 03/01 at 11:00; Stop 03/02/19 at 13:29; Status DC Methylprednisolone Acetate (DEPO-Medrol 40MG VIAL) 40 mg STK-MED ONCE .ROUTE ; Start 03/01/19 at 11:00; Stop 03/02/19 at 13:29; Status DC Metoprolol Tartrate (Lopressor Vial) 5 mg 1X ONCE IVP Last administered on 03/02/19at 18:44; Start 03/02/19 at 18:45; Stop 03/02/19 at 18:46; Status DC Norepinephrine Bitartrate 250 ml @ 1.875 mls/ hr CONT PRN IV SEE I/O RECORD Last administered on 03/03/19at 21:29; Start 03/03/19 at 05:45 Etomidate (Amidate) 20 mg STK-MED ONCE IV ; Start 03/03/19 at 05:44; Stop 03/03/19 at 05:45; Status DC Succinylcholine Chloride (Anectine) 200 mg STK-MED ONCE .ROUTE ; Start 03/03/19 at 05:45; Stop 03/03/19 at 05:46; Status DC Propofol 100 ml @ As Directed STK-MED ONCE IV ; Start 03/03/19 at 06:16; Stop 03/03/19 at 06:17; Status DC Propofol 100 ml @ 1.313 mls/ hr CONT PRN IV SEE I/O RECORD Last administered on 03/04/19at 10:43; Start 03/03/19 at 06:30; Stop 03/04/19 at 19:45; Status DC Midazolam HCl 100 ml @ 5 mls/hr CONT PRN IV SEE I/O RECORD; Start 03/03/19 at 07:00 Chlorhexidine Gluconate (Peridex) 15 ml BID MM Last administered on 03/04/19at 07:55; Start 03/03/19 at 09:00; Stop 03/04/19 at 19:45; Status DC Artificial Tears (Artificial Tears) 1 drop PRN Q1HR PRN OU DRY EYE; Start 03/03/19 at 07:00; Status UNV Ketotifen Fumarate (Zaditor) 1 drop DAILY PRN OU ITCHING Last administered on 03/04/19at 07:55; Start 03/03/19 at 10:45 Heparin Sodium (Porcine) (Heparin Sodium) 5,000 unit Q8HRS SQ Last administered on 03/03/19at 21:28; Start 03/03/19 at 22:00; Stop 03/04/19 at 12:48; Status DC Iodixanol (Visipaque 320) 100 ml STK-MED ONCE .ROUTE ; Start 03/03/19 at 15:19; Stop 03/03/19 at 15:20; Status DC Lidocaine HCl (Xylocaine-Mpf 1% 2ml Vial) 2 ml STK-MED ONCE .ROUTE ; Start 03/03 at 15:19; Stop 03/03/19 at 15:20; Status DC Heparin Sodium/ Sodium Chloride 1,000 ml @ As Directed STK-MED ONCE .ROUTE ; Start 03/03/19 at 15:19; Stop 03/03/19 at 15:20; Status DC Heparin Sodium (Porcine) (Heparin Sodium) 10,000 unit STK-MED ONCE .ROUTE ; Start 03/03/19 at 15:46; Stop 03/03/19 at 15:47; Status DC Verapamil HCl (Verapamil) 5 mg STK-MED ONCE .ROUTE ; Start 03/03/19 at 15:46; Stop 03/03/19 at 15:47; Status DC Nitroglycerin (Nitroglycerin) 200 mcg STK-MED ONCE .ROUTE ; Start 03/03/19 at 15:47; Stop 03/03/19 at 15:48; Status DC Lidocaine HCl (Lidocaine 1% 20ml Vial) 20 ml STK-MED ONCE .ROUTE ; Start 03/03/19 at 15:56; Stop 03/03/19 at 15:57; Status DC Nitroglycerin (Nitroglycerin) 200 mcg STK-MED ONCE .ROUTE ; Start 03/03/19 at 16:11; Stop 03/03/19 at 16:12; Status DC Iodixanol (Visipaque 320) 100 ml STK-MED ONCE .ROUTE ; Start 03/03/19 at 16:49; Stop 03/03/19 at 16:50; Status DC Heparin Sodium/ Sodium Chloride (HEPARIN for ARTERIAL LINE FLUSH) 1,000 unit 1X ONCE IART Last administered on 03/03/19at 17:00; Start 03/03/19 at 17:00; Stop 03/03/19 at 17:02; Status DC Heparin Sodium/ Sodium Chloride (HEPARIN for ARTERIAL LINE FLUSH) 1,000 unit 1X ONCE IART Last administered on 03/03/19at 17:00; Start 03/03/19 at 17:00; Stop 03/03/19 at 17:02; Status DC Iodixanol (Visipaque 320) 100 ml 1X ONCE IART Last administered on 03/03/19at 17:00; Start 03/03/19 at 17:00; Stop 03/03/19 at 17:02; Status DC Heparin Sodium (Porcine) (Heparin Sodium) 6,500 unit 1X ONCE IV Last administered on 03/03/19at 17:00; Start 03/03/19 at 17:00; Stop 03/03/19 at 17:02; Status DC Lidocaine HCl (Lidocaine 1% 20ml Vial) 20 ml 1X ONCE INJ Last administered on 03/03/19at 17:00; Start 03/03/19 at 17:00; Stop 03/03/19 at 17:02; Status DC Ticagrelor (Brilinta) 90 mg STK-MED ONCE .ROUTE ; Start 03/03/19 at 17:02; Stop 03/03/19 at 17:03; Status DC Heparin Sodium/ Sodium Chloride 500 ml @ As Directed STK-MED ONCE .ROUTE ; Start 03/03/19 at 17:04; Stop 03/03/19 at 17:05; Status DC Ticagrelor (Brilinta) 180 mg 1X ONCE GT Last administered on 03/03/19at 17:15; Start 03/03/19 at 17:15; Stop 03/03/19 at 17:16; Status DC Lidocaine HCl (Lidocaine 2% Viscous) 100 ml PRN 1X PRN MM MOUTH PAIN Last administered on 03/04/19at 10:50; Start 03/04/19 at 10:45; Stop 03/05/19 at 10: 44; Status DC Lidocaine HCl (Lidocaine 1% 20ml Vial) 20 ml PRN 1X PRN INJ SEE COMMENTS Last administered on 03/04/19at 10:50; Start 03/04/19 at 10:45; Stop 03/05/19 at 10:44; Status DC Ticagrelor (Brilinta) 90 mg BID PO Last administered on 03/06/19at 08:30; Start 03/04/19 at 13:30 Potassium Chloride/Water 100 ml @ 100 mls/hr Q1H IV Last administered on 03/04/19at 14:09; Start 03/04/19 at 14:30; Stop 03/04/19 at 15:29; Status DC Digoxin (Lanoxin) 500 mcg 1X ONCE IV Last administered on 03/04/19at 15:24; Start 03/04/19 at 15:15; Stop 03/04/19 at 15:16; Status DC Furosemide (Lasix) 20 mg 1X ONCE IVP Last administered on 03/04/19at 15:48; Start 03/04/19 at 15:45; Stop 03/04/19 at 15:46; Status DC Metoprolol Tartrate (Lopressor Vial) 5 mg 1X ONCE IVP Last administered on 03/04/19 16:53; Start 03/04/19 at 15:45; Stop 03/04/19 at 15:46; Status DC Fentanyl Citrate (Fentanyl 2ml Vial) 25 mcg PRN Q1HR PRN IV PAIN Last administered on 03/05/19 11:45; Start 03/04/19 at 16:00 Metoprolol Tartrate (Lopressor) 25 mg Q6HRS PO Last administered on 03/06/19 05:25; Start 03/04/19 at 19:00 Metoprolol Tartrate (Lopressor Vial) 5 mg PRN Q4HRS PRN IVP HR > 130; Start 03/04/19 at 18:45 Digoxin (Lanoxin) 500 mcg 1X ONCE IV Last administered on 03/05/19 00:06; Start 03/05/19 at 00:00; Stop 03/05/19 at 00:01; Status DC Furosemide (Lasix) 40 mg 1X ONCE IVP Last administered on 03/05/19 10:21; Start 03/05/19 at 09:00; Stop 03/05/19 at 09:01; Status DC Epinephrine HCl (EPINEPHrine SYRINGE) 3 mg STK-MED ONCE .ROUTE ; Start 03/02/19 at 10:00; Stop 03/05/19 at 10:46; Status DC Atorvastatin Calcium (Lipitor) 40 mg QHS PO Last administered on 03/05/19 21:53; Start 03/05/19 at 21:00 Acetaminophen/ Hydrocodone Bitart (Lortab 5/325) 1 tab PRN Q6HRS PRN PO SEVERE PAIN Last administered on 03/06/19 05:25; Start 03/05/19 at 12:30 Lidocaine (Lidoderm) 1 patch DAILY TD Last administered on 03/06/19 08:30; Start 03/05/19 at 13:00 Miscellaneous (Lidoderm Patch Removal) 1 ea QHS MC Last administered on 03/05/19 21:00; Start 03/05/19 at 21:00 Active Scripts Active Reported Amlodipine Besylate 10 Mg Tablet 10 Mg PO DAILY Tramadol Hcl 50 Mg Tablet 50 Mg PO Q4H PRN Fish Oil 1,000 Mg Capsule (Rock-3 Fatty Acids/Fish Oil) 1 Each Capsule 1 Each PO Vitamin D3 (Cholecalciferol (Vitamin D3)) 5,000 Unit Capsule 5,000 Unit PO Acetaminophen 500 Mg Tablet 500 Mg PO Aspir 81 (Aspirin) 81 Mg Tablet.dr 81 Mg PO Hydrochlorothiazide Tablet (Hydrochlorothiazide) 25 Mg Tablet 25 Mg PO DAILY Pravastatin Sodium 40 Mg Tablet 40 Mg PO DAILY Miralax (Polyethylene Glycol 3350) 17 Gm Powd.pack 1 Pkt PO DAILY [fiber] Temazepam 30 Mg Capsule 30 Mg PO HS PRN Cozaar (Losartan Potassium) 100 Mg Tablet 100 Mg PO DAILY Vital Signs Vital Signs Date Time Temp Pulse Resp B/P (MAP) Pulse Ox O2 Delivery O2 Flow Rate FiO2 03/06/19 08:29 94 Nasal Cannula 2.0 03/06/19 07:47 98.0 58 20 140/63 (88) 98.0 Labs Laboratory Tests Test 03/04/19 12:50 03/04/19 13:10 03/05/19 06:00 03/06/19 06:30 White Blood Count 12.1 x10^3/uL (4.0-11.0) 12.5 x10^3/uL (4.0-11.0) 12.9 x10^3/uL (4.0-11.0) Red Blood Count 2.72 x10^6/uL (3.50-5.40) 2.28 x10^6/uL (3.50-5.40) 2.67 x10^6/uL (3.50-5.40) Hemoglobin 8.6 g/dL (12.0-15.5) 7.3 g/dL (12.0-15.5) 8.3 g/dL (12.0-15.5) Hematocrit 26.0 % (36.0-47.0) 21.9 % (36.0-47.0) 25.4 % (36.0-47.0) Mean Corpuscular Volume 95 fL (79-100) 96 fL (79-100) 95 fL (79-100) Mean Corpuscular Hemoglobin 32 pg (25-35) 32 pg (25-35) 31 pg (25-35) Mean Corpuscular Hemoglobin Concent 33 g/dL (31-37) 33 g/dL (31-37) 33 g/dL (31-37) Red Cell Distribution Width 14.4 % (11.5-14.5) 14.2 % (11.5-14.5) 14.0 % (11.5-14.5) Platelet Count 339 x10^3/uL (140-400) 332 x10^3/uL (140-400) 351 x10^3/uL (140-400) O2 Saturation 96 % (92-99) Arterial Blood pH 7.48 (7.35-7.45) Arterial Blood pCO2 at Patient Temp 31 mmHg (35-46) Arterial Blood pO2 at Patient Temp 87 mmHg (65-108) Arterial Blood HCO3 23 mmol/L (21-28) Arterial Blood Base Excess 0 mmol/L (-3-3) FiO2 40 Neutrophils (%) (Auto) 81 % (31-73) 84 % (31-73) Lymphocytes (%) (Auto) 10 % (24-48) 9 % (24-48) Monocytes (%) (Auto) 7 % (0-9) 6 % (0-9) Eosinophils (%) (Auto) 1 % (0-3) 1 % (0-3) Basophils (%) (Auto) 1 % (0-3) 0 % (0-3) Neutrophils # (Auto) 10.1 x10^3uL (1.8-7.7) 10.8 x10^3uL (1.8-7.7) Lymphocytes # (Auto) 1.3 x10^3/uL (1.0-4.8) 1.2 x10^3/uL (1.0-4.8) Monocytes # (Auto) 0.9 x10^3/uL (0.0-1.1) 0.8 x10^3/uL (0.0-1.1) Eosinophils # (Auto) 0.1 x10^3/uL (0.0-0.7) 0.2 x10^3/uL (0.0-0.7) Basophils # (Auto) 0.1 x10^3/uL (0.0-0.2) 0.0 x10^3/uL (0.0-0.2) Sodium Level 147 mmol/L (136-145) 147 mmol/L (136-145) Potassium Level 3.4 mmol/L (3.5-5.1) 3.2 mmol/L (3.5-5.1) Chloride Level 108 mmol/L (98-107) 107 mmol/L (98-107) Carbon Dioxide Level 25 mmol/L (21-32) 25 mmol/L (21-32) Anion Gap 14 (6-14) 15 (6-14) Blood Urea Nitrogen 27 mg/dL (7-20) 29 mg/dL (7-20) Creatinine 1.5 mg/dL (0.6-1.0) 1.4 mg/dL (0.6-1.0) Estimated GFR (Cockcroft-Gault) 39.8 43.1 Glucose Level 76 mg/dL (70-99) 116 mg/dL (70-99) Calcium Level 8.6 mg/dL (8.5-10.1) 8.7 mg/dL (8.5-10.1) Laboratory Tests Test 03/06/19 06:30 White Blood Count 12.9 x10^3/uL (4.0-11.0) Red Blood Count 2.67 x10^6/uL (3.50-5.40) Hemoglobin 8.3 g/dL (12.0-15.5) Hematocrit 25.4 % (36.0-47.0) Mean Corpuscular Volume 95 fL (79-100) Mean Corpuscular Hemoglobin 31 pg (25-35) Mean Corpuscular Hemoglobin Concent 33 g/dL (31-37) Red Cell Distribution Width 14.0 % (11.5-14.5) Platelet Count 351 x10^3/uL (140-400) Neutrophils (%) (Auto) 84 % (31-73) Lymphocytes (%) (Auto) 9 % (24-48) Monocytes (%) (Auto) 6 % (0-9) Eosinophils (%) (Auto) 1 % (0-3) Basophils (%) (Auto) 0 % (0-3) Neutrophils # (Auto) 10.8 x10^3uL (1.8-7.7) Lymphocytes # (Auto) 1.2 x10^3/uL (1.0-4.8) Monocytes # (Auto) 0.8 x10^3/uL (0.0-1.1) Eosinophils # (Auto) 0.2 x10^3/uL (0.0-0.7) Basophils # (Auto) 0.0 x10^3/uL (0.0-0.2) Sodium Level 147 mmol/L (136-145) Potassium Level 3.2 mmol/L (3.5-5.1) Chloride Level 107 mmol/L (98-107) Carbon Dioxide Level 25 mmol/L (21-32) Anion Gap 15 (6-14) Blood Urea Nitrogen 29 mg/dL (7-20) Creatinine 1.4 mg/dL (0.6-1.0) Estimated GFR (Cockcroft-Gault) 43.1 Glucose Level 116 mg/dL (70-99) Calcium Level 8.7 mg/dL (8.5-10.1) Allergies Allergies Coded Allergies Type Severity Reaction Last Updated Verified Sulfa (Sulfonamide Antibiotics) Allergy Severe TONGUE SWELLING 04/07/14 Yes Disposition/Orders: Other (TO SNF BED TODAY) Patient Instructions D/C PLANNING 36 MIN CHRIS MINAYA MD March 06, 2019 10:56
[2019-03-06] MEDS ORDERED: POTASSIUM CHLORIDE 20 MEQ TABLET.ER. PO ONE (11:00)
--- NOTE | 2019-03-06 11:05 | SNU/HH DC ---
DISCHARGE ORDERS DISCHARGE INFORMATION: FINAL DIAGNOSIS Problems Medical Problems: (1) Septic shock Status: Acute CONDITION ON DISCHARGE: Stable CODE STATUS: Code Status: Full PRISON: SNF STAY <30 DAYS: Yes HOSPICE: HOSPICE: No HOSPICE EVAL & TREAT: No LTAC: ADMIT TO LTAC: No POST DISCHARGE ORDERS: ACTIVITY ORDERS: Activity as tolerated DIET AFTER DISCHARGE: Cardiac CHECKS AFTER DISCHARGE: CHECKS AFTER DISCHARGE: Check blood press - daily TREATMENT/EQUIPMENT ORDERS: Physical Therapy For: Evalulation/Treatment Occupational Therapy For: Evaluation/Treatment DISCHARGE MEDICATIONS: Home Meds Reported Medications Amlodipine Besylate (AMLODIPINE BESYLATE) 10 Mg Tablet, 10 MG PO DAILY, TAB 09/23/16 Tramadol Hcl (TRAMADOL HCL) 50 Mg Tablet, 50 MG PO Q4H PRN for PAIN, TAB 04/07/14 [place]-3 Fatty Acids/Fish Oil (FISH OIL 1,000 MG CAPSULE) 1 Each Capsule, 1 EACH PO 04/07/14 Cholecalciferol (Vitamin D3) (VITAMIN D3) 5,000 Unit Capsule, 5000 UNIT PO 04/07/14 Acetaminophen (ACETAMINOPHEN) 500 Mg Tablet, 500 MG PO 04/07/14 Aspirin (ASPIR 81) 81 Mg Tablet.dr, 81 MG PO, TAB 04/07/14 Hydrochlorothiazide (HYDROCHLOROTHIAZIDE TABLET ) 25 Mg Tablet, 25 MG PO DAILY for DIURETIC, TAB 0 Refills 04/07/14 Pravastatin Sodium (PRAVASTATIN SODIUM) 40 Mg Tablet, 40 MG PO DAILY, TAB 04/07/14 Polyethylene Glycol 3350 (MIRALAX) 17 Gm Powd.pack, 1 PKT PO DAILY, PKT 04/07/14 [fiber] No Conflict Check 04/07/14 Temazepam (TEMAZEPAM) 30 Mg Capsule, 30 MG PO HS PRN for INSOMNIA, CAP 04/07/14 Losartan Potassium (COZAAR) 100 Mg Tablet, 100 MG PO DAILY, TAB 04/07/14 CHRIS MINAYA MD March 06, 2019 11:05
[2019-03-06 11:36] VITALS: BP 137/63
[2019-03-06 11:37] VITALS: BP 137/63
--- NOTE | 2019-03-06 11:39 | NUR ---
SS following up with discharge planning. Discharge orders received for [facility]. SS phoned and faxed discharge orders to [facility], ; fax [phone]. Pt will discharge today [facility] Pt, pt's RN, and pt's daughter notified.
--- NOTE | 2019-03-06 12:39 | PDOC ---
CARDIO Progress Notes Date and Time Date of Service 03/06/2019 Time of Evaluation 1220 Subjective Subjective: No shortness of breath, No Palpitations, Other (MSK pain to mid chest due to CPR) Vitals Vitals Vital Signs Date Time Temp Pulse Resp B/P (MAP) Pulse Ox O2 Delivery O2 Flow Rate FiO2 03/06/19 12:12 98 Nasal Cannula 2.0 03/06/19 11:37 62 137/63 03/06/19 11:36 97.8 20 97.8 Weight Weight [ ] Input and Output Intake and Output Intake and Output 03/06/19 06:59 Intake Total 450 ml Output Total 825 ml Balance -375 ml Intake Oral 350 ml IV Total 100 ml Output Urine Total 825 ml Laboratory Labs Laboratory Tests Test 03/06/19 06:30 White Blood Count 12.9 x10^3/uL (4.0-11.0) Red Blood Count 2.67 x10^6/uL (3.50-5.40) Hemoglobin 8.3 g/dL (12.0-15.5) Hematocrit 25.4 % (36.0-47.0) Mean Corpuscular Volume 95 fL (79-100) Mean Corpuscular Hemoglobin 31 pg (25-35) Mean Corpuscular Hemoglobin Concent 33 g/dL (31-37) Red Cell Distribution Width 14.0 % (11.5-14.5) Platelet Count 351 x10^3/uL (140-400) Neutrophils (%) (Auto) 84 % (31-73) Lymphocytes (%) (Auto) 9 % (24-48) Monocytes (%) (Auto) 6 % (0-9) Eosinophils (%) (Auto) 1 % (0-3) Basophils (%) (Auto) 0 % (0-3) Neutrophils # (Auto) 10.8 x10^3uL (1.8-7.7) Lymphocytes # (Auto) 1.2 x10^3/uL (1.0-4.8) Monocytes # (Auto) 0.8 x10^3/uL (0.0-1.1) Eosinophils # (Auto) 0.2 x10^3/uL (0.0-0.7) Basophils # (Auto) 0.0 x10^3/uL (0.0-0.2) Sodium Level 147 mmol/L (136-145) Potassium Level 3.2 mmol/L (3.5-5.1) Chloride Level 107 mmol/L (98-107) Carbon Dioxide Level 25 mmol/L (21-32) Anion Gap 15 (6-14) Blood Urea Nitrogen 29 mg/dL (7-20) Creatinine 1.4 mg/dL (0.6-1.0) Estimated GFR (Cockcroft-Gault) 43.1 Glucose Level 116 mg/dL (70-99) Calcium Level 8.7 mg/dL (8.5-10.1) Microbiology Micro Microbiology 02/22/19 Blood Culture - Final, Complete NO GROWTH AFTER 5 DAYS 03/04/19 AFB Specimen Processing Tissue - Final, Resulted 03/04/19 Acid Fast Bacilli Culture, Resulted Pending 03/04/19 Gram Stain - Final, Resulted 03/04/19 Fungal Culture, Resulted Pending 03/04/19 Fungal Culture Result 1, Resulted Pending 02/22/19 Urine Culture - Final, Complete 02/22/19 Urine Culture Result 1 (JIN) - Final, Complete 02/22/19 Antimicrobic Susceptibility - Final, Complete Physical Exam HEENT: Neck Supple W Full Motion Chest: Symmetric LUNGS: Other (basilar crackles) Heart: S1S2, RRR (SR SB lowest mid 50s. ), no murmurs, other Abdomen: Soft N/T Extremities: No Calf Tenderness, Other (trace LE edema) Neurology: alert, oriented, follow commands Assessment Assessment 1. PEA arrest; Limited echo with preserved LV systolic function with EF 50-55% 2. CAD; s/p PCI/DRE to LM. RCA with subtotal mid occlusion. 3. NSTEMI: Trop peaked at 12. CP free 4. Acute respiratory failure; extubated, compensated 5. Sepsis/shock: off pressors. BP maintaining 6. Acute diastolic CHF, compensated 7. SEBAS; Cr better Recommendations 1. Replace K. 2. Secondary prevention; BB, statin, DAPT with ASA/Brilinta 3. follow up as scheduled. Agree with SNU, cardiac rehab post SNU 4. Lasix LESVIAN. RENÉ SERRANO APRN March 06, 2019 12:39
[2019-03-06] MEDS ORDERED: FUROSEMIDE 40 MG TABLET. PO PRN (12:45)
[2019-03-06] MEDS ORDERED: FUROSEMIDE 40 MG TABLET. PO SCH (13:00)
--- NOTE | 2019-03-06 14:17 | PDOC ---
PROGRESS NOTES Subjective Subjective He c/o arm pain. Objective Objective Vital Signs Date Time Temp Pulse Resp B/P (MAP) Pulse Ox O2 Delivery O2 Flow Rate FiO2 03/06/19 12:12 98 Nasal Cannula 2.0 03/06/19 11:37 62 137/63 03/06/19 11:36 97.8 20 97.8 Intake and Output 03/06/19 07:00 Intake Total 450 ml Output Total 825 ml Balance -375 ml Intake Oral 350 ml IV Total 100 ml Output Urine Total 825 ml Physical Exam Physical Exam She is alert,sitting in bedside chair and she needs assistance with mobility and she had tenderness to palpation over left lateral rib cage area and some stiffness and weakness of shoulder girdle muscles,left>right. Assessment Assessment Problems Medical Problems: (1) Septic shock Status: Acute Plan Plan of Care Ro get her up as tolerated. Comment Review of Relevant I have reviewed the following items ne (where applicable) has been applied. Labs Laboratory Tests Test 03/05/19 06:00 03/06/19 06:30 White Blood Count 12.5 x10^3/uL (4.0-11.0) 12.9 x10^3/uL (4.0-11.0) Red Blood Count 2.28 x10^6/uL (3.50-5.40) 2.67 x10^6/uL (3.50-5.40) Hemoglobin 7.3 g/dL (12.0-15.5) 8.3 g/dL (12.0-15.5) Hematocrit 21.9 % (36.0-47.0) 25.4 % (36.0-47.0) Mean Corpuscular Volume 96 fL (79-100) 95 fL (79-100) Mean Corpuscular Hemoglobin 32 pg (25-35) 31 pg (25-35) Mean Corpuscular Hemoglobin Concent 33 g/dL (31-37) 33 g/dL (31-37) Red Cell Distribution Width 14.2 % (11.5-14.5) 14.0 % (11.5-14.5) Platelet Count 332 x10^3/uL (140-400) 351 x10^3/uL (140-400) Neutrophils (%) (Auto) 81 % (31-73) 84 % (31-73) Lymphocytes (%) (Auto) 10 % (24-48) 9 % (24-48) Monocytes (%) (Auto) 7 % (0-9) 6 % (0-9) Eosinophils (%) (Auto) 1 % (0-3) 1 % (0-3) Basophils (%) (Auto) 1 % (0-3) 0 % (0-3) Neutrophils # (Auto) 10.1 x10^3uL (1.8-7.7) 10.8 x10^3uL (1.8-7.7) Lymphocytes # (Auto) 1.3 x10^3/uL (1.0-4.8) 1.2 x10^3/uL (1.0-4.8) Monocytes # (Auto) 0.9 x10^3/uL (0.0-1.1) 0.8 x10^3/uL (0.0-1.1) Eosinophils # (Auto) 0.1 x10^3/uL (0.0-0.7) 0.2 x10^3/uL (0.0-0.7) Basophils # (Auto) 0.1 x10^3/uL (0.0-0.2) 0.0 x10^3/uL (0.0-0.2) Sodium Level 147 mmol/L (136-145) 147 mmol/L (136-145) Potassium Level 3.4 mmol/L (3.5-5.1) 3.2 mmol/L (3.5-5.1) Chloride Level 108 mmol/L (98-107) 107 mmol/L (98-107) Carbon Dioxide Level 25 mmol/L (21-32) 25 mmol/L (21-32) Anion Gap 14 (6-14) 15 (6-14) Blood Urea Nitrogen 27 mg/dL (7-20) 29 mg/dL (7-20) Creatinine 1.5 mg/dL (0.6-1.0) 1.4 mg/dL (0.6-1.0) Estimated GFR (Cockcroft-Gault) 39.8 43.1 Glucose Level 76 mg/dL (70-99) 116 mg/dL (70-99) Calcium Level 8.6 mg/dL (8.5-10.1) 8.7 mg/dL (8.5-10.1) Laboratory Tests Test 03/06/19 06:30 White Blood Count 12.9 x10^3/uL (4.0-11.0) Red Blood Count 2.67 x10^6/uL (3.50-5.40) Hemoglobin 8.3 g/dL (12.0-15.5) Hematocrit 25.4 % (36.0-47.0) Mean Corpuscular Volume 95 fL (79-100) Mean Corpuscular Hemoglobin 31 pg (25-35) Mean Corpuscular Hemoglobin Concent 33 g/dL (31-37) Red Cell Distribution Width 14.0 % (11.5-14.5) Platelet Count 351 x10^3/uL (140-400) Neutrophils (%) (Auto) 84 % (31-73) Lymphocytes (%) (Auto) 9 % (24-48) Monocytes (%) (Auto) 6 % (0-9) Eosinophils (%) (Auto) 1 % (0-3) Basophils (%) (Auto) 0 % (0-3) Neutrophils # (Auto) 10.8 x10^3uL (1.8-7.7) Lymphocytes # (Auto) 1.2 x10^3/uL (1.0-4.8) Monocytes # (Auto) 0.8 x10^3/uL (0.0-1.1) Eosinophils # (Auto) 0.2 x10^3/uL (0.0-0.7) Basophils # (Auto) 0.0 x10^3/uL (0.0-0.2) Sodium Level 147 mmol/L (136-145) Potassium Level 3.2 mmol/L (3.5-5.1) Chloride Level 107 mmol/L (98-107) Carbon Dioxide Level 25 mmol/L (21-32) Anion Gap 15 (6-14) Blood Urea Nitrogen 29 mg/dL (7-20) Creatinine 1.4 mg/dL (0.6-1.0) Estimated GFR (Cockcroft-Gault) 43.1 Glucose Level 116 mg/dL (70-99) Calcium Level 8.7 mg/dL (8.5-10.1) Microbiology 02/22/19 Blood Culture - Final, Complete NO GROWTH AFTER 5 DAYS 03/04/19 AFB Specimen Processing Tissue - Final, Resulted 03/04/19 Acid Fast Bacilli Culture, Resulted Pending 03/04/19 Gram Stain - Final, Resulted 03/04/19 Fungal Culture, Resulted Pending 03/04/19 Fungal Culture Result 1, Resulted Pending 02/22/19 Urine Culture - Final, Complete 02/22/19 Urine Culture Result 1 (JIN) - Final, Complete 02/22/19 Antimicrobic Susceptibility - Final, Complete Medications Current Medications Sodium Chloride 1,000 ml @ 1,000 mls/hr 1X ONCE IV Last administered on 02/22/19at 21:23; Start 02/22/19 at 20:45; Stop 02/22/19 at 21:44; Status DC Acetaminophen (Tylenol) 650 mg 1X ONCE PO Last administered on 02/22/19at 21:22; Start 02/22/19 at 20:45; Stop 02/22/19 at 20:52; Status DC Piperacillin Sod/ Tazobactam Sod (Zosyn Per Pharmacy) 1 each PRN DAILY PRN MC SEE COMMENTS; Start 02/22/19 at 20:45; Stop 02/23/19 at 14:53; Status DC Piperacillin Sod/ Tazobactam Sod 3.375 gm/Sodium Chloride 50 ml @ 100 mls/hr ONCE ONCE IV Last administered on 02/22/19at 21:23; Start 02/22/19 at 21:00; Stop 02/22/19 at 21:29; Status DC Sodium Chloride 1,000 ml @ 1,000 mls/hr 1X ONCE IV Last administered on 02/22/19at 23:44; Start 02/22/19 at 23:30; Stop 02/23/19 at 00:29; Status DC Sodium Chloride 1,000 ml @ 75 mls/hr [id number] IV Last administered on 02/23/19at 07:38; Start 02/22/19 at 23:30; Stop 02/23/19 at 08:17; Status DC Iohexol (Omnipaque 300 Mg/ml) 60 ml 1X ONCE IV Last administered on 02/23/19at 00:02; Start 02/23/19 at 00:15; Stop 02/23/19 at 00:16; Status DC Info (CONTRAST GIVEN -- Rx MONITORING) 1 each PRN DAILY PRN MC SEE COMMENTS; Start 02/23/19 at 00:15; Stop 02/25/19 at 00:14; Status DC Piperacillin Sod/ Tazobactam Sod 2.25 gm/Sodium Chloride 50 ml @ 100 mls/hr Q6HRS IV Last administered on 02/23/19at 12:26; Start 02/23/19 at 06:00; Stop 02/23/19 at 14:34; Status DC Sodium Chloride 1,000 ml @ 1,000 mls/hr 1X ONCE IV ; Start 02/23/19 at 01:00; Stop 02/23/19 at 01:45; Status DC Sodium Chloride 500 ml @ 500 mls/hr 1X ONCE IV Last administered on 02/23/19at 02:07; Start 02/23/19 at 02:00; Stop 02/23/19 at 02:59; Status DC Norepinephrine Bitartrate 250 ml @ 0 mls/hr 1X ONCE IV ; Start 02/23/19 at 02:00; Stop 02/23/19 at 02:01; Status DC Sodium Chloride 500 ml @ 500 mls/hr 1X ONCE IV Last administered on 02/23/19at 06:10; Start 02/23/19 at 02:00; Stop 02/23/19 at 02:59; Status DC Norepinephrine Bitartrate 250 ml @ 1.875 mls/ hr CONT PRN IV SEE I/O RECORD Last administered on 02/26/19at 09:00; Start 02/23/19 at 03:15; Stop 02/27/19 at 14:17; Status DC Ondansetron HCl (Zofran) 4 mg PRN Q6HRS PRN IV NAUSEA/VOMITING Last administered on 02/24/19at 23:21; Start 02/23/19 at 03:15 Iohexol (Omnipaque 300 Mg/ml) 100 ml STK-MED ONCE .ROUTE ; Start 02/23/19 at 04:24; Stop 02/23/19 at 04:25; Status DC Sodium Chloride 500 ml @ 500 mls/hr 1X ONCE IV Last administered on 02/23/19at 08:28; Start 02/23/19 at 07:45; Stop 02/23/19 at 08:44; Status DC Acetaminophen (Tylenol) 650 mg PRN Q6HRS PRN PO HEADACHE/ TEMP Last administered on 03/05/19 04:08; Start 02/23/19 at 08:15 Ringer's Solution 1,000 ml @ 100 mls/hr Q10H IV Last administered on 02/27/19 23:15; Start 02/23/19 at 08:30; Stop 02/28/19 at 11:55; Status DC Ringer's Solution 500 ml @ 500 mls/hr 1X ONCE IV Last administered on 02/23/19 09:23; Start 02/23/19 at 09:15; Stop 02/23/19 at 10:14; Status DC Dopamine HCl/ Dextrose 250 ml @ 5.749 mls/ hr CONT PRN IV SEE I/O RECORD Last administered on 02/25/19 05:11; Start 02/23/19 at 12:15 Tramadol HCl (Ultram) 50 mg PRN Q6HRS PRN PO MODERATE PAIN Last administered on 03/06/19 08:29; Start 02/23/19 at 12:30 Heparin Sodium (Porcine) (Heparin Sodium) 4,000 unit 1X ONCE IV Last administered on 02/23/19 13:30; Start 02/23/19 at 13:00; Stop 02/23/19 at 13:01; Status DC Heparin Sodium/ Dextrose 500 ml @ 0 mls/hr CONT PRN IV SEE I/O RECORD Last administered on 02/25/19 05:12; Start 02/23/19 at 13:00; Stop 02/26/19 at 13:01; Status DC Heparin Sodium (Porcine) (Heparin Sodium) 1,900 unit PRN Q6HRS PRN IV FOR UFH LEVEL LESS THAN 0.2 Last administered on 02/25/19 09:35; Start 02/23/19 at 13:00; Stop 02/26/19 at 13:01; Status DC Polyethylene Glycol (miraLAX PACKET) 17 gm PRN BID PRN PO CONSTIPATION Last administered on 02/23/19 14:38; Start 02/23/19 at 13:15; Stop 02/23/19 at 14:59; Status DC Info (Anti-Coagulation Monitoring By Pharmacy) 1 each PRN DAILY PRN MC SEE COMMENTS Last administered on 02/26/19 08:00; Start 02/23/19 at 13:30; Stop 02/26/19 at 13:50; Status DC Temazepam (Restoril) 15 mg PRN QHS PRN PO INSOMNIA Last administered on 03/05/19at 21:53; Start 02/23/19 at 14:45 Piperacillin Sod/ Tazobactam Sod 2.25 gm/Sodium Chloride 50 ml @ 100 mls/hr Q6HRS IV ; Start 02/23/19 at 18:00; Stop 02/23/19 at 18:00; Status DC Polyethylene Glycol (miraLAX PACKET) 17 gm BID PO Last administered on 03/04/19at 07:54; Start 02/23/19 at 21:00 Multi-Ingredient Ointment (Analgesic Patterson) 1 mara PRN QID PRN TP MUSCLE PAIN Last administered on 02/27/19at 09:18; Start 02/23/19 at 18:00 Pantoprazole Sodium (Protonix) 40 mg DAILYAC PO Last administered on 03/06/19at 08:28; Start 02/24/19 at 17:30 Aspirin (Ecotrin) 325 mg 1X ONCE PO Last administered on 02/25/19at 09:31; Start 02/25/19 at 09:15; Stop 02/25/19 at 09:16; Status DC Aspirin (Ecotrin) 81 mg DAILYWBKFT PO Last administered on 03/06/19at 08:28; Start 02/26/19 at 08:00 Potassium Chloride (Klor-Con) 40 meq 1X ONCE PO Last administered on 02/25/19at 09:32; Start 02/25/19 at 09:15; Stop 02/25/19 at 09:16; Status DC Magnesium Sulfate/ Dextrose 100 ml @ 25 mls/hr 1X ONCE IV Last administered on 02/25/19at 11:49; Start 02/25/19 at 11:30; Stop 02/25/19 at 15:29; Status DC Piperacillin Sod/ Tazobactam Sod (Zosyn Per Pharmacy) 1 each PRN DAILY PRN MC SEE COMMENTS; Start 02/25/19 at 16:45; Stop 03/06/19 at 09:59; Status DC Piperacillin Sod/ Tazobactam Sod 2.25 gm/Sodium Chloride 50 ml @ 100 mls/hr Q6HRS IV Last administered on 03/06/19at 05:25; Start 02/25/19 at 18:00; Stop 03/06/19 at 09:59; Status DC Bisacodyl (Dulcolax Tab) 10 mg 1X ONCE PO Last administered on 02/26/19at 10:00; Start 02/26/19 at 10:00; Stop 02/26/19 at 10:01; Status DC Methylprednisolone Acetate (DEPO-Medrol 40MG VIAL) 40 mg 1X ONCE IM ; Start 02/26/19 at 12:15; Stop 02/26/19 at 12:20; Status DC Bupivacaine HCl (Sensorcaine-Mpf 0.25%) 10 ml 1X ONCE IJ ; Start 02/26/19 at 12:15; Stop 02/26/19 at 12:20; Status DC Methylprednisolone Acetate (DEPO-Medrol 40MG VIAL) 40 mg 1X ONCE IM ; Start 02/27/19 at 08:00; Stop 02/27/19 at 08:01; Status DC Bupivacaine HCl (Sensorcaine-Mpf 0.25%) 10 ml 1X ONCE IJ ; Start 02/27/19 at 08:00; Stop 02/27/19 at 08:01; Status DC Lactobacillus Rhamnosus (Culturelle) 1 cap BID PO Last administered on 03/03/19at 09:13; Start 02/26/19 at 21:00; Stop 03/03/19 at 12:23; Status DC Diclofenac Sodium (Voltaren) 1 mara BID TP Last administered on 03/05/19at 08:46; Start 02/26/19 at 21:00 Artificial Tears (Artificial Tears) 1 drop PRN Q2HR PRN OU DRY EYE Last administered on 03/01/19at 21:00; Start 02/26/19 at 19:15 Ketotifen Fumarate (Zaditor) 1 drop 1X ONCE OU Last administered on 02/27/19at 12:21; Start 02/27/19 at 09:30; Stop 02/27/19 at 09:31; Status DC Atorvastatin Calcium (Lipitor) 20 mg QHS PO Last administered on 03/04/19at 21:11; Start 02/27/19 at 21:00; Stop 03/05/19 at 12:19; Status DC Sodium Chloride 500 ml @ 500 mls/hr 1X ONCE IV Last administered on 02/28/19at 09:30; Start 02/28/19 at 09:30; Stop 02/28/19 at 10:29; Status DC Alteplase, Recombinant (Cathflo For Central Catheter Clearance) 1 mg 1X ONCE INT CAT ; Start 02/28/19 at 10:15; Stop 02/28/19 at 10:16; Status DC Sodium Chloride 1,000 ml @ 100 mls/hr Q10H IV Last administered on 02/28/19at 12:05; Start 02/28/19 at 12:00; Stop 02/28/19 at 16:41; Status DC Iohexol (Omnipaque 350 Mg/ml) 90 ml 1X ONCE IV Last administered on 02/28/19at 14:25; Start 02/28/19 at 12:30; Stop 02/28/19 at 12:31; Status DC Albuterol Sulfate (Ventolin Neb Soln) 2.5 mg PRN Q4HRS PRN NEB SHORTNESS OF BREATH Last administered on 03/05/19at 00:46; Start 02/28/19 at 13:30 Furosemide (Lasix) 20 mg 1X ONCE IVP Last administered on 02/28/19at 15:54; Start 02/28/19 at 15:30; Stop 02/28/19 at 15:32; Status DC Bupivacaine HCl (Sensorcaine-Mpf 0.25%) 10 ml STK-MED ONCE .ROUTE ; Start 03/01/19 at 11:00; Stop 03/02/19 at 13:29; Status DC Methylprednisolone Acetate (DEPO-Medrol 40MG VIAL) 40 mg STK-MED ONCE .ROUTE ; Start 03/01/19 at 11:00; Stop 03/02/19 at 13:29; Status DC Metoprolol Tartrate (Lopressor Vial) 5 mg 1X ONCE IVP Last administered on 03/02/19at 18:44; Start 03/02/19 at 18:45; Stop 03/02/19 at 18:46; Status DC Norepinephrine Bitartrate 250 ml @ 1.875 mls/ hr CONT PRN IV SEE I/O RECORD Last administered on 03/03/19at 21:29; Start 03/03/19 at 05:45 Etomidate (Amidate) 20 mg STK-MED ONCE IV ; Start 03/03/19 at 05:44; Stop 03/03/19 at 05:45; Status DC Succinylcholine Chloride (Anectine) 200 mg STK-MED ONCE .ROUTE ; Start 03/03/19 at 05:45; Stop 03/03/19 at 05:46; Status DC Propofol 100 ml @ As Directed STK-MED ONCE IV ; Start 03/03/19 at 06:16; Stop 03/03/19 at 06:17; Status DC Propofol 100 ml @ 1.313 mls/ hr CONT PRN IV SEE I/O RECORD Last administered on 03/04/19at 10:43; Start 03/03/19 at 06:30; Stop 03/04/19 at 19:45; Status DC Midazolam HCl 100 ml @ 5 mls/hr CONT PRN IV SEE I/O RECORD; Start 03/03/19 at 07:00 Chlorhexidine Gluconate (Peridex) 15 ml BID MM Last administered on 03/04/19at 07:55; Start 03/03/19 at 09:00; Stop 03/04/19 at 19:45; Status DC Artificial Tears (Artificial Tears) 1 drop PRN Q1HR PRN OU DRY EYE; Start 03/03/19 at 07:00; Status UNV Ketotifen Fumarate (Zaditor) 1 drop DAILY PRN OU ITCHING Last administered on 03/04/19at 07:55; Start 03/03/19 at 10:45 Heparin Sodium (Porcine) (Heparin Sodium) 5,000 unit Q8HRS SQ Last administered on 03/03/19at 21:28; Start 03/03/19 at 22:00; Stop 03/04/19 at 12:48; Status DC Iodixanol (Visipaque 320) 100 ml STK-MED ONCE .ROUTE ; Start 03/03/19 at 15:19; Stop 03/03/19 at 15:20; Status DC Lidocaine HCl (Xylocaine-Mpf 1% 2ml Vial) 2 ml STK-MED ONCE .ROUTE ; Start 03/03/19 at 15:19; Stop 03/03/19 at 15:20; Status DC Heparin Sodium/ Sodium Chloride 1,000 ml @ As Directed STK-MED ONCE .ROUTE ; Start 03/03/19 at 15:19; Stop 03/03/19 at 15:20; Status DC Heparin Sodium (Porcine) (Heparin Sodium) 10,000 unit STK-MED ONCE .ROUTE ; Start 03/03/19 at 15:46; Stop 03/03/19 at 15:47; Status DC Verapamil HCl (Verapamil) 5 mg STK-MED ONCE .ROUTE ; Start 03/03/19 at 15:46; Stop 03/03/19 at 15:47; Status DC Nitroglycerin (Nitroglycerin) 200 mcg STK-MED ONCE .ROUTE ; Start 03/03/19 at 15:47; Stop 03/03/19 at 15:48; Status DC Lidocaine HCl (Lidocaine 1% 20ml Vial) 20 ml STK-MED ONCE .ROUTE ; Start 03/03/19 at 15:56; Stop 03/03/19 at 15:57; Status DC Nitroglycerin (Nitroglycerin) 200 mcg STK-MED ONCE .ROUTE ; Start 03/03/19 at 16:11; Stop 03/03/19 at 16:12; Status DC Iodixanol (Visipaque 320) 100 ml STK-MED ONCE .ROUTE ; Start 03/03/19 at 16:49; Stop 03/03/19 at 16:50; Status DC Heparin Sodium/ Sodium Chloride (HEPARIN for ARTERIAL LINE FLUSH) 1,000 unit 1X ONCE IART Last administered on 03/03/19at 17:00; Start 03/03/19 at 17:00; Stop 03/03/19 at 17:02; Status DC Heparin Sodium/ Sodium Chloride (HEPARIN for ARTERIAL LINE FLUSH) 1,000 unit 1X ONCE IART Last administered on 03/03/19at 17:00; Start 03/03/19 at 17:00; Stop 03/03/19 at 17:02; Status DC Iodixanol (Visipaque 320) 100 ml 1X ONCE IART Last administered on 03/03/19at 17:00; Start 03/03/19 at 17:00; Stop 03/03/19 at 17:02; Status DC Heparin Sodium (Porcine) (Heparin Sodium) 6,500 unit 1X ONCE IV Last administered on 03/03/19at 17:00; Start 03/03/19 at 17:00; Stop 03/03/19 at 17:02; Status DC Lidocaine HCl (Lidocaine 1% 20ml Vial) 20 ml 1X ONCE INJ Last administered on 03/03/19at 17:00; Start 03/03/19 at 17:00; Stop 03/03/19 at 17:02; Status DC Ticagrelor (Brilinta) 90 mg STK-MED ONCE .ROUTE ; Start 03/03/19 at 17:02; Stop 03/03/19 at 17:03; Status DC Heparin Sodium/ Sodium Chloride 500 ml @ As Directed STK-MED ONCE .ROUTE ; Start 03/03/19 at 17:04; Stop 03/03/19 at 17:05; Status DC Ticagrelor (Brilinta) 180 mg 1X ONCE GT Last administered on 03/03/19at 17:15; Start 03/03/19 at 17:15; Stop 03/03/19 at 17:16; Status DC Lidocaine HCl (Lidocaine 2% Viscous) 100 ml PRN 1X PRN MM MOUTH PAIN Last administered on 03/04/19at 10:50; Start 03/04/19 at 10:45; Stop 03/05/19 at 10:44; Status DC Lidocaine HCl (Lidocaine 1% 20ml Vial) 20 ml PRN 1X PRN INJ SEE COMMENTS Last administered on 03/04/19at 10:50; Start 03/04/19 at 10:45; Stop 03/05/19 at 10:44; Status DC Ticagrelor (Brilinta) 90 mg BID PO Last administered on 03/06/19at 08:30; Start 03/04/19 at 13:30 Potassium Chloride/Water 100 ml @ 100 mls/hr Q1H IV Last administered on 03/04/19at 14:09; Start 03/04/19 at 14:30; Stop 03/04/19 at 15:29; Status DC Digoxin (Lanoxin) 500 mcg 1X ONCE IV Last administered on 03/04/19at 15:24; Start 03/04/19 at 15:15; Stop 03/04/19 at 15:16; Status DC Furosemide (Lasix) 20 mg 1X ONCE IVP Last administered on 03/04/19at 15:48; Start 03/04/19 at 15:45; Stop 03/04/19 at 15:46; Status DC Metoprolol Tartrate (Lopressor Vial) 5 mg 1X ONCE IVP Last administered on 03/04/19at 16:53; Start 03/04/19 at 15:45; Stop 03/04/19 at 15:46; Status DC Fentanyl Citrate (Fentanyl 2ml Vial) 25 mcg PRN Q1HR PRN IV PAIN Last administered on 03/05/19 11:45; Start 03/04/19 at 16:00 Metoprolol Tartrate (Lopressor) 25 mg Q6HRS PO Last administered on 03/06/19at 11:37; Start 03/04/19 at 19:00 Metoprolol Tartrate (Lopressor Vial) 5 mg PRN Q4HRS PRN IVP HR > 130; Start 03/04/19 at 18:45 Digoxin (Lanoxin) 500 mcg 1X ONCE IV Last administered on 03/05/19 00:06; Start 03/05/19 at 00:00; Stop 03/05/19 at 00:01; Status DC Furosemide (Lasix) 40 mg 1X ONCE IVP Last administered on 03/05/19 10:21; Start 03/05/19 at 09:00; Stop 03/05/19 at 09:01; Status DC Epinephrine HCl (EPINEPHrine SYRINGE) 3 mg STK-MED ONCE .ROUTE ; Start 03/02/19 at 10:00; Stop 03/05/19 at 10:46; Status DC Atorvastatin Calcium (Lipitor) 40 mg QHS PO Last administered on 03/05/19at 21:53; Start 03/05/19 at 21:00 Acetaminophen/ Hydrocodone Bitart (Lortab 5/325) 1 tab PRN Q6HRS PRN PO SEVERE PAIN Last administered on 03/06/19at 12:12; Start 03/05/19 at 12:30 Lidocaine (Lidoderm) 1 patch DAILY TD Last administered on 03/06/19 08:30; Start 03/05/19 at 13:00 Miscellaneous (Lidoderm Patch Removal) 1 ea QHS MC Last administered on 03/05/19at 21:00; Start 03/05/19 at 21:00 Potassium Chloride (Klor-Con) 20 meq 1X ONCE PO Last administered on 03/06/19at 11:36; Start 03/06/19 at 11:00; Stop 03/06/19 at 11:01; Status DC Potassium Chloride (Klor-Con) 20 meq DAILYWBKFT PO ; Start 03/07/19 at 08:00 Furosemide (Lasix) 40 mg DAILY PO Last administered on 03/06/19at 13:10; Start 03/06/19 at 13:00 Furosemide (Lasix) 40 mg PRN DAILY PRN PO for CHF; Start 03/06/19 at 12:45 Active Scripts Active Reported Amlodipine Besylate 10 Mg Tablet 10 Mg PO DAILY Tramadol Hcl 50 Mg Tablet 50 Mg PO Q4H PRN Fish Oil 1,000 Mg Capsule ([place]-3 Fatty Acids/Fish Oil) 1 Each Capsule 1 Each PO Vitamin D3 (Cholecalciferol (Vitamin D3)) 5,000 Unit Capsule 5,000 Unit PO Acetaminophen 500 Mg Tablet 500 Mg PO Aspir 81 (Aspirin) 81 Mg Tablet.dr 81 Mg PO Hydrochlorothiazide Tablet (Hydrochlorothiazide) 25 Mg Tablet 25 Mg PO DAILY Pravastatin Sodium 40 Mg Tablet 40 Mg PO DAILY Miralax (Polyethylene Glycol 3350) 17 Gm Powd.pack 1 Pkt PO DAILY [fiber] Temazepam 30 Mg Capsule 30 Mg PO HS PRN Cozaar (Losartan Potassium) 100 Mg Tablet 100 Mg PO DAILY Vitals/I & O Vital Sign - Last 24 Hours 03/05/19 03/05/19 03/05/19 03/05/19 15:00 15:48 17:41 17:45 Temp 98.2 98.2 Pulse 80 69 Resp 26 18 B/P (MAP) 132/64 (86) 125/53 (77) Pulse Ox 98 96 O2 Delivery Nasal Cannula Nasal Cannula Nasal Cannula O2 Flow Rate 2.0 2.0 2.0 3.0 03/05/19 03/05/19 03/05/19 03/05/19 17:54 20:00 20:31 21:53 Temp 97.6 97.6 Pulse 69 61 Resp 18 B/P (MAP) 125/53 126/56 (79) Pulse Ox 96 96 O2 Delivery Nasal Cannula Nasal Cannula Nasal Cannula O2 Flow Rate 3.0 2.0 2.0 03/05/19 03/05/19 03/05/19 03/06/19 22:53 23:22 23:45 04:07 Temp 98.1 98.3 98.1 98.3 Pulse 61 61 64 Resp 18 17 19 B/P (MAP) 126/56 106/49 (68) 109/52 (71) Pulse Ox 96 93 O2 Delivery Nasal Cannula Nasal Cannula O2 Flow Rate 2.0 2.0 03/06/19 03/06/19 03/06/1903/06/19 05:25 05:25 06:25 07:47 Temp 98.0 98.0 Pulse 64 58 Resp 18 18 20 B/P (MAP) 109/52 140/63 (88) Pulse Ox 93 93 94 O2 Delivery Nasal Cannula Nasal Cannula Nasal Cannula O2 Flow Rate 2.0 03/06/19 03/06/19 03/06/19 03/06/19 08:29 09:29 11:36 11:37 Temp 97.8 97.8 Pulse 62 62 Resp 20 B/P (MAP) 137/63 (87) 137/63 Pulse Ox 94 94 98 O2 Delivery Nasal Cannula Nasal Cannula Nasal Cannula O2 Flow Rate 2.0 2.0 2.0 03/06/19 12:12 Pulse Ox 98 O2 Delivery Nasal Cannula O2 Flow Rate 2.0 Intake and Output 03/05/19 03/05/19 03/06/19 15:00 23:00 07:00 Intake Total 200 ml 250 ml Output Total 225 ml 600 ml Balance -25 ml -350 ml Nutrition Consultation Dietary Evaluation: Recommendations by RD: Increase Calorie Intake, Protein supplementation Comments: Continue w/cardiac/GI soft diet as ordered, honor food preferences and provide snacks as requested REC Ensure (strawberry) BID w/lunch and dinner Expected Outcomes/Goals: New goal 03/03: TF infusion for nutrition needs while pt remains intubated - met, new goal established New goal 03/05: PO intake to meet >75% est needs Malnutrition Findings: Food and Nutrition Intake (Mod: <75% est energy req 7days Weight Status: Appropriate ERIN PRIETO MD March 06, 2019 14:17
--- NOTE | 2019-03-06 16:51 | NUR ---
PT LEFT FOR HEALTHCARE RESORT AND DAUGHTER WAS PRESENT AND RIDING WITH HER TO SETTLE HER IN. REPORT CALLED TO [facility] APPROX 2HRS PRIOR TO PT ARRIVING AT HEALTHCARE RESORT.
[2019-03-06] MEDS ORDERED: FURO40TA4 PO (17:07)
[2019-03-07] MEDS ORDERED: POTASSIUM CHLORIDE 20 MEQ TABLET.ER. PO SCH (08:00)
== END 2019-03-06 15:24 | DRG 853 ==
LOC: ER 20:00 → 6 SOUTH 02-23 00:26 → 1 WEST ICU 02-23 02:21 → 2 NORTH 02-27 12:57 → 1 WEST ICU 03-03 05:40 → 2 SOUTH 03-05 17:43
PROVIDERS: ADMIT Internal Medicine; ATTEND Internal Medicine
PROC: 02HV33Z Insertion of Infusion Device into Superior Vena Cava, Percutaneous Approach (ICD-10-PCS; 2019-02-24)
PROC: 0BH17EZ Insertion of Endotracheal Airway into Trachea, Via Natural or Artificial Opening (ICD-10-PCS; 2019-03-03)
PROC: 5A1945Z Respiratory Ventilation, 24-96 Consecutive Hours (ICD-10-PCS; 2019-03-03)
PROC: 4A023N7 Measurement of Cardiac Sampling and Pressure, Left Heart, Percutaneous Approach (ICD-10-PCS; principal; 2019-03-04)
PROC: 027034Z Dilation of Coronary Artery, One Artery with Drug-eluting Intraluminal Device, Percutaneous Approach (ICD-10-PCS; 2019-03-04)
PROC: B2111ZZ Fluoroscopy of Multiple Coronary Arteries using Low Osmolar Contrast (ICD-10-PCS; 2019-03-04)
PROC: 0B9D8ZX Drainage of Right Middle Lung Lobe, Via Natural or Artificial Opening Endoscopic, Diagnostic (ICD-10-PCS; 2019-03-04)
PROC: 0B9C8ZX Drainage of Right Upper Lung Lobe, Via Natural or Artificial Opening Endoscopic, Diagnostic (ICD-10-PCS; 2019-03-04)
DX: A41.9 Sepsis, unspecified organism (principal); I21.4 Non-ST elevation (NSTEMI) myocardial infarction; J96.21 Acute and chronic respiratory failure with hypoxia; I50.33 Acute on chronic diastolic (congestive) heart failure; R65.21 Severe sepsis with septic shock; I46.9 Cardiac arrest, cause unspecified; G45.9 Transient cerebral ischemic attack, unspecified; N17.9 Acute kidney failure, unspecified; N39.0 Urinary tract infection, site not specified; J98.11 Atelectasis; K56.7 Ileus, unspecified; I13.0 Hypertensive heart and chronic kidney disease with heart failure and stage 1 through stage 4 chronic kidney disease, or unspecified chronic kidney disease; M19.90 Unspecified osteoarthritis, unspecified site; E78.5 Hyperlipidemia, unspecified; K52.9 Noninfective gastroenteritis and colitis, unspecified; I25.10 Atherosclerotic heart disease of native coronary artery without angina pectoris; E11.51 Type 2 diabetes mellitus with diabetic peripheral angiopathy without gangrene; B96.20 Unspecified Escherichia coli [E. coli] as the cause of diseases classified elsewhere; Z16.11 Resistance to penicillins; D64.9 Anemia, unspecified; I34.0 Nonrheumatic mitral (valve) insufficiency; J43.2 Centrilobular emphysema; E87.5 Hyperkalemia; I45.10 Unspecified right bundle-branch block; I48.91 Unspecified atrial fibrillation; B96.1 Klebsiella pneumoniae [K. pneumoniae] as the cause of diseases classified elsewhere; B96.4 Proteus (mirabilis) (morganii) as the cause of diseases classified elsewhere; N18.3 Chronic kidney disease, stage 3 (moderate); E11.22 Type 2 diabetes mellitus with diabetic chronic kidney disease; I27.20 Pulmonary hypertension, unspecified; G31.84 Mild cognitive impairment of uncertain or unknown etiology; Z87.891 Personal history of nicotine dependence; Z98.61 Coronary angioplasty status; Z88.2 Allergy status to sulfonamides; Z88.1 Allergy status to other antibiotic agents; Z86.718 Personal history of other venous thrombosis and embolism; Z79.82 Long term (current) use of aspirin; Z86.73 Personal history of transient ischemic attack (TIA), and cerebral infarction without residual deficits
CPT/HCPCS: 31622; 36415; 36569; 36600; 71045; 71275; 74018; 74177; 75625; 80048; 80053; 80061; 80069; 81001; 82805; 82962; 83605; 83690; 83735; 83880; 84145; 84484; 85007; 85025; 85027; 85347; 85379; 85520; 85610; 87040; 87070; 87086; 87102; 87116; 87186; 87205; 87804; 88112; 92928; 93005; 93306; 93308; 93458; 94002; 94003; 94640; 94760; 96365; 99291; C1713; C1725; C1769; C1887; C1892; G0238; J0171; J1030; J1160; J1265; J1644; J1940; J2405; J2543; J2704; J3010; J3475; J3480; J3490; J7030; J7040; J7120; J7613; Q9967; 97110; 97116; 97530; 97535

== ENCOUNTER 2019-05-25 15:10 | Emergency (ER) | payer MEDICARE, OTHER ==
[~2019-05-25] VITALS: Ht 162.6 cm; Wt 83.0 kg
[~2019-05-25 15:10] MED LIST changes: +FURO40TA4 PO
[2019-05-25 15:30] VITALS: BP 154/87
[2019-05-25] MEDS ORDERED: ONDANSETRON ODT 4 MG TAB.RAPDIS. PO ONE (16:00)
[2019-05-25] MEDS ORDERED: IV NORMAL SALINE 500ML BAG 500 ML IV ONE (16:15)
[2019-05-25] MEDS ORDERED: fentaNYL PF VIAL 100 MCG/2 ML VIAL IV ONE (16:15)
[2019-05-25] MEDS ORDERED: ONDANSETRON PF 4 MG/2 ML VIAL. IV ONE (16:15)
--- NOTE | 2019-05-25 16:15 | PHYS DOC ---
Past Medical History Past Medical History: Arthritis, Hypertension, Other Additional Past Medical Histor: PVD,BLOOD CLOTS,BOWEL OBSTRUCTION Past Surgical History: Other Additional Past Surgical Histo: FEM POP, LT CARTIOD, ARTERIAL VASC. SURGERY Alcohol Use: None Drug Use: None Adult General Chief Complaint Chief Complaint: ABDOMINAL PAIN HPI HPI Patient is a 84 year old [female] who presents with [worsening lower abdominal pain for the past day. Patient reports she has had 2 episodes of vomiting, does report she had a small bowel movement this morning. Reports she has a history of small bowel obstruction, with last SBO in October. Reports she is concerned she has another one. States she just aches all over her abdomen. states she has not taken anything for the discomfort, discomfort is constant and feels crampy. ] Review of Systems Review of Systems Constitutional: Denies fever or chills [] Eyes: Denies change in visual acuity, redness, or eye pain [] Respiratory: Denies cough or shortness of breath [] Cardiovascular: No additional information not addressed in HPI [] GI:Reports abdominal pain, nausea, vomiting, Denies bloody stools or diarrhea [] : Denies dysuria or hematuria. denies burning with urination[] Musculoskeletal: Denies back pain or joint pain [] Integument: Denies rash or skin lesions [] Neurologic: Denies headache, focal weakness or sensory changes [] All other systems were reviewed and found to be within normal limits, except as documented in this note. Current Medications Current Medications Current Medications Medications (Trade) Dose Ordered Sig/[facility] Start Time Stop Time Status Last Admin Dose Admin Fentanyl Citrate (Fentanyl 2ml Vial) 50 mcg 1X ONCE 05/25/19 16:15 05/25/19 16:16 DC 05/25/19 16:19 50 MCG Ondansetron HCl (Zofran Odt) 4 mg 1X ONCE 05/25/19 16:00 05/25/19 16:01 DC Ondansetron HCl (Zofran) 4 mg 1X ONCE 05/25/19 16:15 05/25/19 16:16 DC 05/25/19 16:18 4 MG Sodium Chloride 500 ml @ 500 mls/hr 1X ONCE 05/25/19 16:15 05/25/19 17:14 DC 05/25/19 16:18 500 MLS/HR Allergies Allergies Allergies Coded Allergies Type Severity Reaction Last Updated Verified Sulfa (Sulfonamide Antibiotics) Allergy Severe TONGUE SWELLING 04/07/14 Yes Physical Exam Physical Exam Constitutional: Well developed, well nourished, no acute distress, non-toxic appearance. [] HENT: Normocephalic, atraumatic, bilateral external ears normal, oropharynx moist, no oral exudates, nose normal. [] Eyes: PERRLA, EOMI, conjunctiva normal, no discharge. [] Neck: Normal range of motion, no tenderness, supple, no stridor. [] Cardiovascular:Heart rate regular rhythm, no murmur [] Lungs & Thorax: Bilateral breath sounds clear to auscultation [] Abdomen: Bowel sounds diminished right side, soft, minimal tenderness, no masses, no pulsatile masses. [] Extremities: No tenderness, no cyanosis, no clubbing, ROM intact, no edema. [] Neurologic: Alert and oriented X 3, normal motor function, normal sensory function, no focal deficits noted. [] Psychologic: Affect normal, judgement normal, mood normal. [] Current Patient Data Vital Signs Vital Signs Date Time Temp Pulse Resp B/P (MAP) Pulse Ox O2 Delivery O2 Flow Rate FiO2 05/25/19 16:19 30 95 Room Air 05/25/19 16:00 88 05/25/19 15:30 98.0 154/87 (109) 98.0 Lab Values Laboratory Tests Test 05/25/19 16:25 05/25/19 17:35 White Blood Count 13.9 x10^3/uL (4.0-11.0) H Red Blood Count 4.28 x10^6/uL (3.50-5.40) Hemoglobin 12.9 g/dL (12.0-15.5) Hematocrit 39.0 % (36.0-47.0) Mean Corpuscular Volume 91 fL (79-100) Mean Corpuscular Hemoglobin 30 pg (25-35) Mean Corpuscular Hemoglobin Concent 33 g/dL (31-37) Red Cell Distribution Width 15.1 % (11.5-14.5) H Platelet Count 346 x10^3/uL (140-400) Neutrophils (%) (Auto) 81 % (31-73) H Lymphocytes (%) (Auto) 13 % (24-48) L Monocytes (%) (Auto) 5 % (0-9) Eosinophils (%) (Auto) 0 % (0-3) Basophils (%) (Auto) 1 % (0-3) Neutrophils # (Auto) 11.2 x10^3/uL (1.8-7.7) H Lymphocytes # (Auto) 1.8 x10^3/uL (1.0-4.8) Monocytes # (Auto) 0.8 x10^3/uL (0.0-1.1) Eosinophils # (Auto) 0.0 x10^3/uL (0.0-0.7) Basophils # (Auto) 0.1 x10^3/uL (0.0-0.2) Sodium Level 143 mmol/L (136-145) Potassium Level 3.6 mmol/L (3.5-5.1) Chloride Level 103 mmol/L (98-107) Carbon Dioxide Level 26 mmol/L (21-32) Anion Gap 14 (6-14) Blood Urea Nitrogen 26 mg/dL (7-20) H Creatinine 1.3 mg/dL (0.6-1.0) H Estimated GFR (Cockcroft-Gault) 47.0 BUN/Creatinine Ratio 20 (6-20) Glucose Level 120 mg/dL (70-99) H Calcium Level 10.2 mg/dL (8.5-10.1) H Total Bilirubin 0.3 mg/dL (0.2-1.0) Aspartate Amino Transferase (AST) 19 U/L (15-37) Alanine Aminotransferase (ALT) 18 U/L (14-59) Alkaline Phosphatase 121 U/L (46-116) H Troponin I Quantitative < 0.017 ng/mL (0.000-0.055) Total Protein 8.4 g/dL (6.4-8.2) H Albumin 3.9 g/dL (3.4-5.0) Albumin/Globulin Ratio 0.9 (1.0-1.7) L Urine Collection Type Unknown Urine Color Yellow Urine Clarity Clear Urine pH 6.0 Urine Specific [place] 1.015 Urine Protein 30 mg/dL (NEG-TRACE) Urine Glucose (UA) Negative mg/dL (NEG) Urine Ketones (Stick) Negative mg/dL (NEG) Urine Blood Negative (NEG) Urine Nitrite Positive (NEG) Urine Bilirubin Negative (NEG) Urine Urobilinogen Dipstick 0.2 mg/dL (0.2 mg/dL) Urine Leukocyte Esterase Trace (NEG) Urine RBC 1-2 /HPF (0-2) Urine WBC 5-10 /HPF (0-4) Urine Squamous Epithelial Cells Few /LPF Urine Bacteria Many /HPF (0-FEW) Urine Hyaline Casts Occasional /HPF Urine Mucus Slight /LPF Laboratory Tests 05/25/19 16:25 Laboratory Tests 05/25/19 16:25 EKG EKG [] Radiology/Procedures Radiology/Procedures [] 1. No acute intra-abdominal or pelvic process detected. 2. Left kidney is asymmetrically smaller as compared to the right axilla chronic basis. Tiny 2 mm nonobstructing left calculus. 3. Diffuse scattered stool throughout the colon. Correlate clinically for constipation. RS Compliance Statement: One or more of the following individualized dose reduction techniques were utilized for this examination: 1. Automated exposure control 2. Adjustment of the mA and/or kV according to patient size 3. Use of iterative reconstruction technique Electronically signed by: Fauzia Rosa MD (05/25/2019 5:09 PM) [facility] Course & Med Decision Making Course & Med Decision Making Pertinent Labs and Imaging studies reviewed. (See chart for details) [Discussed lab findings with patient and daughter. No sign of obstruction or constipation today. Discussed continued use of medications at home, discussed increased hydration, discussed use of antibiotics. Discussed importance of follow-up with primary care as needed. Patient upcoming agreeable with plan] Dragon Disclaimer Dragon Disclaimer This electronic medical record was generated, in whole or in part, using a voice recognition dictation system. Departure Departure Impression: Primary Impression: Urinary tract infection Disposition: 01 HOME, SELF-CARE Condition: GOOD Referrals: JEN COOK MD (PCP) Patient Instructions: Urinary Tract Infection, Child Additional Instructions: Increase your fluid intake Take the antibiotic as prescribed Follow up with your PCP as needed Scripts Cephalexin (CEPHALEXIN) 500 Mg Capsule 1 CAP PO BID, #20 CAP Prov: WANDA PIZARRO APRN 05/25/19 Problem Qualifiers Primary Impression: Urinary tract infection Urinary tract infection type: acute cystitis Hematuria presence: without hematuria Qualified Codes: N30.00 - Acute cystitis without hematuria WANDA PIZARRO APRN May 25, 2019 16:15
[2019-05-25 16:38] LABS: BASO # 0.1 x10^3/uL (0.0-0.2); BASO % 1 % (0-3); EOS % 0 % (0-3); HEMOGLOBIN 12.9 g/dL (12.0-15.5); LYMPH # 1.8 x10^3/uL (1.0-4.8); LYMPH % 13 % (24-48); MEAN CORPUSCULAR HEMOGLOBIN 30 pg (25-35); MEAN CORPUSCULAR HGB CONC 33 g/dL (31-37); MEAN CORPUSCULAR VOLUME 91 fL (79-100); MONO # 0.8 x10^3/uL (0.0-1.1); MONO % 5 % (0-9); NEUT # 11.2 x10^3/uL (1.8-7.7); NEUT % 81 % (31-73); PLATELET COUNT 346 x10^3/uL (140-400); RED BLOOD COUNT 4.28 x10^6/uL (3.50-5.40); RED CELL DISTRIBUTION WIDTH 15.1 % (11.5-14.5); WHITE BLOOD COUNT 13.9 x10^3/uL (4.0-11.0)
[2019-05-25 17:03] LABS: CALCIUM 10.2 mg/dL (8.5-10.1); CREATININE 1.3 mg/dL (0.6-1.0); POTASSIUM 3.6 mmol/L (3.5-5.1)
[2019-05-25 17:09] LABS: ALBUMIN 3.9 g/dL (3.4-5.0); ALBUMIN/GLOBULIN RATIO 0.9 (1.0-1.7); TOTAL BILIRUBIN 0.3 mg/dL (0.2-1.0); TOTAL PROTEIN 8.4 g/dL (6.4-8.2)
--- NOTE | 2019-05-25 17:12 | RAD ---
Exam performed: CT scan of the abdomen and pelvis without contrast. Clinical Indication: Abdominal pain, history of small bowel obstruction. Date of Service: 05/25/2019 comparison: None available Technique: Contiguous helical acquisitions are obtained through the abdomen and pelvis without IV contrast. Sagittal and coronal reformatted images are obtained and reviewed. CT abdomen and pelvis findings: The lung bases are essentially clear. Visualized heart is normal. Diffuse atheromatous calcification of the descending thoracic and abdominal aorta is seen. Lack of IV contrast limits evaluation of abdominal viscera, however the liver, spleen and pancreas are normal. Probable cholelithiasis Both adrenal glands are normal in size. The left kidney is asymmetrically smaller as compared to the right. There is perhaps a nonobstructing calculus in the left midpole. Diffuse atheromatous aortic calcification with a aorto bifemoral stent graft in place.. The small bowel loops are nondilated and unremarkable. Extensive scattered stool seen throughout the colon. Appendix is not clearly seen. Distal ureters are nondilated. Urinary bladder is well distended and unremarkable. [Uterus is anteverted and contains calcified fibroids. No adnexal masses are seen.] No free or focal fluid collections are identified. Spondylotic changes and multilevel disc degenerative changes noted. Impression: 1. No acute intra-abdominal or pelvic process detected. 2. Left kidney is asymmetrically smaller as compared to the right axilla chronic basis. Tiny 2 mm nonobstructing left calculus. 3. Diffuse scattered stool throughout the colon. Correlate clinically for constipation. PQRS Compliance Statement: One or more of the following individualized dose reduction techniques were utilized for this examination: 1. Automated exposure control 2. Adjustment of the mA and/or kV according to patient size 3. Use of iterative reconstruction technique Electronically signed by: Fauzia Rosa MD (05/25/2019 5:09 PM) [facility]
[2019-05-25 17:47] LABS: BILIRUBIN,URINE NEGATIVE (NEG); CLARITY,URINE CLEAR; COLOR,URINE YELLOW; NITRITE,URINE POSITIVE (NEG); PROTEIN,URINE 30 mg/dL (NEG-TRACE); UROBILINOGEN,URINE 0.2 mg/dL (0.2 mg/dL)
[2019-05-25 17:53] LABS: BACTERIA,URINE MANY /HPF (0-FEW); HYALINE CASTS, URINE OCCASIONAL /HPF; SQUAMOUS EPITHELIAL CELL,UR FEW /LPF
[2019-05-25] MEDS ORDERED: CEPH500C PO (18:18)
[2019-05-25] MEDS ORDERED: CEPHALEXIN 250 MG CAPSULE. PO ONE (18:30)
== END 2019-05-25 18:21 | disposition home or self-care (01) ==
LOC: ER 15:10
DX: N30.00 Acute cystitis without hematuria (principal); R11.2 Nausea with vomiting, unspecified; Z88.2 Allergy status to sulfonamides; M19.90 Unspecified osteoarthritis, unspecified site; I10 Essential (primary) hypertension
CPT/HCPCS: 99285; J2405; J3010; J7040; 36415; 74176; 80053; 81001; 84484; 85025; 87086; 96361; 96374; 96375

== ENCOUNTER 2019-05-28 19:24 | Inpatient (IN) | payer MEDICARE, OTHER ==
[~2019-05-28] VITALS: Ht 162.6 cm; Wt 67.3 kg
[~2019-05-28 19:24] MED LIST changes: +CEPH500C PO
--- NOTE | 2019-05-28 19:41 | EKG ---
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
[2019-05-28] MEDS ORDERED: ASPIRIN CHEWABLE 81 MG TABLET. PO ONE (19:45)
[2019-05-28] MEDS ORDERED: ONDANSETRON PF 4 MG/2 ML VIAL. IV ONE (20:15)
[2019-05-28] MEDS ORDERED: MORPHINE SULFATE 2 MG/ML VIAL. IV PRN (20:45)
[2019-05-28 20:53] LABS: BILIRUBIN,URINE NEGATIVE (NEG); CLARITY,URINE CLEAR; COLOR,URINE YELLOW; NITRITE,URINE NEGATIVE (NEG); PROTEIN,URINE 100 mg/dL (NEG-TRACE); UROBILINOGEN,URINE 0.2 mg/dL (0.2 mg/dL)
--- NOTE | 2019-05-28 20:58 | RAD ---
Chest radiograph 05/28/2019 7:40 PM INDICATION: Nausea and vomiting COMPARISON: March 06, 2019 TECHNIQUE: Portable upright frontal view of the chest is provided. FINDINGS: The cardiomediastinal silhouette is within normal limits. Calcified plaque is identified involving the thoracic aorta. There are no pleural effusions. There is no pulmonary vascular congestion. There is no pneumothorax. The lungs are clear. No significant osseous abnormality is identified. IMPRESSION: No acute cardiopulmonary process. Electronically signed by: Lisa Muir MD (05/28/2019 8:55 PM) [facility]
[2019-05-28 21:04] LABS: CALCIUM 10.3 mg/dL (8.5-10.1); CREATININE 1.2 mg/dL (0.6-1.0); GFR 51.5; POTASSIUM 3.4 mmol/L (3.5-5.1)
[2019-05-28 21:05] LABS: PROTHROMBIN TIME PATIENT 11.8 SEC (11.7-14.0)
[2019-05-28 21:05] LABS: BACTERIA,URINE 0 /HPF (0-FEW); WBC,URINE 0 /HPF (0-4)
[2019-05-28] MEDS ORDERED: fentaNYL PF VIAL 100 MCG/2 ML VIAL IV ONE (21:15)
--- NOTE | 2019-05-28 21:15 | PHYS DOC ---
Past Medical History Past Medical History: Arthritis, CAD, Hypertension, Other Additional Past Medical Histor: PVD,BLOOD CLOTS,BOWEL OBSTRUCTION Past Surgical History: Other Additional Past Surgical Histo: FEM POP, LT CARTIOD, ARTERIAL VASC. SURGERY, CARDIAC STENTS Alcohol Use: None Drug Use: None Adult General Chief Complaint Chief Complaint: NAUSEA/VOMITING/DIARRHA HPI HPI Patient is a 84 year old female who brought in by EMS because of nausea and vomiting. Patient states she ate chicken at [employer] with her doctor around 11 AM and started to have episodes of nausea and vomiting with 3 episodes of nonbloody vomiting without diarrhea. Patient complaining of lower abdominal cramping pain and rated her pain 6/10 with radiation to her back. Patient complaining of substernal chest pain while she was under very to the hospital and rated her pain 2/10 without shortness of breath. Patient had history of coronary artery disease with [place] in February 2019. Patient had sick contacts at home. Patient denies fever and chills, urinary symptom, focal neuro deficit. Patient states she had a bowel movement 2 days ago and usually has constipation. Patient had sublingual Zofran given by EMS with improvement of her nausea. Review of Systems Review of Systems Constitutional: Denies fever or chills [] Eyes: Denies change in visual acuity, redness, or eye pain [] HENT: Denies nasal congestion or sore throat [] Respiratory: Denies cough or shortness of breath [] Cardiovascular: No additional information not addressed in HPI [] GI: Reports abdominal pain, nausea, vomiting, denies bloody stools or diarrhea [] : Denies dysuria or hematuria [] Musculoskeletal: Denies back pain or joint pain [] Integument: Denies rash or skin lesions [] Neurologic: Denies headache, focal weakness or sensory changes [] Endocrine: Denies polyuria or polydipsia [] All other systems were reviewed and found to be within normal limits, except as documented in this note. Current Medications Current Medications Current Medications Medications (Trade) Dose Ordered Sig/[place] Start Time Stop Time Status Last Admin Dose Admin Aspirin (Children'S Aspirin) 324 mg 1X ONCE 05/28/19 19:45 05/28/19 19:46 DC 05/28/19 19:40 324 MG Fentanyl Citrate (Fentanyl 2ml Vial) 50 mcg 1X ONCE 8/7/19 21:15 05/28/19 21:16 DC 05/28/19 21:14 50 MCG Morphine Sulfate (Morphine Sulfate) 2 mg PRN Q2HR PRN 05/28/19 20:45 Ondansetron HCl (Zofran) 4 mg QID PRN 05/28/19 20:45 Allergies Allergies Allergies Coded Allergies Type Severity Reaction Last Updated Verified Sulfa (Sulfonamide Antibiotics) Allergy Severe TONGUE SWELLING 04/07/14 Yes Physical Exam Physical Exam Constitutional: Well developed, well nourished, mild distress, non-toxic appearance. [] HENT: Normocephalic, atraumatic, oropharynx moist, no oral exudates. Eyes: PERRLA, EOMI, conjunctiva normal, no discharge. [] Neck: Normal range of motion, no tenderness, supple, no stridor. [] Cardiovascular:Heart rate regular rhythm, no murmur [] Lungs & Thorax: Bilateral breath sounds clear to auscultation [] Abdomen: Bowel sounds normal, soft, lower abdominal guarding, no tenderness, no masses, no pulsatile masses. [] Skin: Warm, dry, no erythema, no rash. [] Back: No tenderness, no CVA tenderness. [] Extremities: No tenderness, no cyanosis, no clubbing, ROM intact, no edema. [] Neurologic: Alert and oriented X 3, normal motor function, normal sensory function, no focal deficits noted. [] Psychologic: Affect normal, judgement normal, mood normal. [] Current Patient Data Vital Signs Vital Signs Date Time Temp Pulse Resp B/P (MAP) Pulse Ox O2 Delivery O2 Flow Rate FiO2 05/28/19 21:14 18 99 05/28/19 21:06 95 180/81 (114) Room Air 05/28/19 19:24 98.5 98.5 Lab Values Laboratory Tests Test 05/28/19 20:28 05/28/19 20:42 Prothrombin Time 11.8 SEC (11.7-14.0) Prothrombin Time INR 0.9 (0.8-1.1) Sodium Level 138 mmol/L (136-145) Potassium Level 3.4 mmol/L (3.5-5.1) L Chloride Level 96 mmol/L (98-107) L Carbon Dioxide Level 28 mmol/L (21-32) Anion Gap 14 (6-14) Blood Urea Nitrogen 23 mg/dL (7-20) H Creatinine 1.2 mg/dL (0.6-1.0) H Estimated GFR (Cockcroft-Gault) 51.5 BUN/Creatinine Ratio 19 (6-20) Glucose Level 140 mg/dL (70-99) H Lactic Acid Level 1.4 mmol/L (0.4-2.0) Calcium Level 10.3 mg/dL (8.5-10.1) H Magnesium Level 1.6 mg/dL (1.8-2.4) L Total Bilirubin 0.2 mg/dL (0.2-1.0) Aspartate Amino Transferase (AST) 23 U/L (15-37) Alanine Aminotransferase (ALT) 17 U/L (14-59) Alkaline Phosphatase 123 U/L (46-116) H Creatine Kinase 289 U/L (26-192) H Troponin I Quantitative < 0.017 ng/mL (0.000-0.055) ES-Ahq-G-Type Natriuretic Peptide 1277 pg/mL (0-449) H Total Protein 8.8 g/dL (6.4-8.2) H Albumin 4.2 g/dL (3.4-5.0) Albumin/Globulin Ratio 0.9 (1.0-1.7) L Lipase 33 U/L (73-393) L Urine Collection Type Unknown Urine Color Yellow Urine Clarity Clear Urine pH 7.0 Urine Specific [place] 1.010 Urine Protein 100 mg/dL (NEG-TRACE) Urine Glucose (UA) Negative mg/dL (NEG) Urine Ketones (Stick) Negative mg/dL (NEG) Urine Blood Trace (NEG) Urine Nitrite Negative (NEG) Urine Bilirubin Negative (NEG) Urine Urobilinogen Dipstick 0.2 mg/dL (0.2 mg/dL) Urine Leukocyte Esterase Negative (NEG) Urine RBC 3-5 /HPF (0-2) Urine WBC 0 /HPF (0-4) Urine Bacteria 0 /HPF (0-FEW) Laboratory Tests 05/28/19 20:28 EKG EKG EKG interpreted by me. EKG at 1927 showed normal sinus rhythm at rate of 93, left atrial abnormality, left krishna axis, nonspecific intraventricular block, RVH with repolarization abnormality, Q waves in inferior leads, no acute ST and T-wave abnormalities. Radiology/Procedures Radiology/Procedures [][facility] [address] [place] [address] IMAGING REPORT Signed PATIENT: BHARGAVI RODNEY ACCOUNT: [id number] : 1935 LOCATION: [address] [place] [address] AGE: 84 SEX: F EXAM STATUS: ADM IN ORD. PHYSICIAN: CARIDAD RODRÍGUEZ MD REASON: lower abdominal pain PROCEDURE: CT ABDOMEN PELVIS WO CONTRAST PQRS Compliance Statement: One or more of the following individualized dose reduction techniques were utilized for this examination: 1. Automated exposure control 2. Adjustment of the mA and/or kV according to patient size 3. Use of iterative reconstruction technique CT abdomen/pelvis without contrast 05/28/2019 9:15 PM INDICATION: Lower abdominal pain COMPARISON: CT abdomen/pelvis May 25, 2019 TECHNIQUE: Multiple axial CT images of the abdomen and pelvis were obtained without intravenous contrast. Coronal and sagittal reformats are provided. FINDINGS: Lung bases are clear. Aortic valvular calcifications or prosthesis is identified. Heart size within normal limits. Evaluation of the solid abdominal viscera is limited by lack of intravenous contrast. Calcifications within the spleen likely represent sequela prior granulomatous exposure. Stable appearance of the liver, bilateral adrenal glands, pancreas and gallbladder. Calcified gallstones are identified within the gallbladder. Dense calcified atheromatous plaque identified involving the abdominal aorta. 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 External iliac stent grafts are visualized. Evaluation is limited by lack of intravenous contrast. No pathologically enlarged lymph nodes are identified in abdomen and pelvis. There is no free fluid or free intraperitoneal air. Moderate amount of stool is noted throughout the colon. Findings are stable. Small and large bowel are normal in caliber. There is no evidence for bowel obstruction. There are no pericolonic inflammatory changes. A normal, nondilated appendix is visualized without adjacent inflammatory changes. There is asymmetric atrophy of the inferior pole left kidney. No hydronephrosis. Urinary bladder is within normal limits given degree of distention. Stable 2 mm nonobstructing left renal calculus in the interpolar left kidney. No new suspicious osseous abnormality. Mild osteoarthrosis of the hips. IMPRESSION: 1. No evidence for bowel obstruction or inflammation. Moderate amount of stool is noted throughout the colon, stable. 2. Cholelithiasis. 3. Atrophy of the inferior pole left kidney. 2 mm nonobstructing calculus is identified in the left kidney. Electronically signed by: Moose Kim MD (05/28/2019 9:49 PM) [facility] DICTATED and SIGNED BY: MOOSE KIM MD DATE: 05/28/192148 [facility] [address] [place] [address] IMAGING REPORT Signed PATIENT: BHARGAVI RODNEY ACCOUNT: [id number] : 1935 LOCATION: ER AGE: 84 SEX: F EXAM STATUS: REG ER ORD. PHYSICIAN: CARIDAD RODRÍGUEZ MD REASON: nausea and vomiting, chest pain PROCEDURE: PORTABLE CHEST 1V Chest radiograph 05/28/2019 7:40 PM INDICATION: Nausea and vomiting COMPARISON: March 06, 2019 TECHNIQUE: Portable upright frontal view of the chest is provided. FINDINGS: The cardiomediastinal silhouette is within normal limits. Calcified plaque is identified involving the thoracic aorta. There are no pleural effusions. There is no pulmonary vascular congestion. There is no pneumothorax. The lungs are clear. No significant osseous abnormality is identified. IMPRESSION: No acute cardiopulmonary process. Electronically signed by: Moose Kim MD (05/28/2019 8:55 PM) [facility] DICTATED and SIGNED BY: MOOSE KIM MD DATE: 05/28/192054 Course & Med Decision Making Course & Med Decision Making Pertinent Labs and Imaging studies reviewed. (See chart for details) Evaluation of patient in ER showed 84-year-old male patient with nausea and vomiting and chest pain and abdominal pain with sick contacts at home. Patient had dehydration and electrolyte problem. Patient felt better with treatment in ER.Patient requiring admission for further evaluation and treatment. Discussed with Dr. Voss who is in agreement with admission. Discussed findings and plan with patient and family, who acknowledge understanding and agreement. Dragon Disclaimer Dragon Disclaimer This electronic medical record was generated, in whole or in part, using a voice recognition dictation system. Departure Departure Impression: Primary Impression: Acute gastritis Additional Impressions: Cholelithiasis Chest pain Renal insufficiency Hypomagnesemia Hypokalemia Disposition: ADMITTED INPATIENT (at 2013) Admitting Physician: MARIA DOLORES (Angelica Voss accepted admission at 2011) Condition: IMPROVED Referrals: JEN COOK MD (PCP) Critical Care Time Critical care time was 70 minutes exclusive of procedures. The HEART Score for CP Pts HEART Score for Chest Pain: HEART Score for Chest Pain Response (Comments) Value History Slighlty/Non-Suspicious 0 ECG Nonspecific Repolarizatio 1 Age > 65 2 Risk Factors >3 Risk Factors or Hx CAD 2 Troponin < Normal Limit 0 Total 5 Risk Factors: Risk Factors: DM, Current or recent (<one month) smoker, HTN, HLP, family history of CAD, obesity. Risk Scores: Score 0 - 3: 2.5% MACE over next 6 weeks - Discharge Home Score 4 - 6: 20.3% MACE over next 6 weeks - Admit for Clinical Observation Score 7 - 10: 72.7% MACE over next 6 weeks - Early Invasive Strategies Problem Qualifiers Primary Impression: Acute gastritis Gastritis type: unspecified gastritis Gastritis bleeding: without bleeding Qualified Codes: K29.00 - Acute gastritis without bleeding Additional Impressions: Cholelithiasis Cholelithiasis location: other site Biliary obstruction: without biliary obstruction Qualified Codes: K80.80 - Other cholelithiasis without obstruction Chest pain Chest pain type: unspecified Qualified Codes: R07.9 - Chest pain, unspecified CARIDAD RODRÍGUEZ MD May 28, 2019 21:15
[2019-05-28 21:16] LABS: ALBUMIN 4.2 g/dL (3.4-5.0); ALBUMIN/GLOBULIN RATIO 0.9 (1.0-1.7); MAGNESIUM 1.6 mg/dL (1.8-2.4); TOTAL BILIRUBIN 0.2 mg/dL (0.2-1.0); TOTAL PROTEIN 8.8 g/dL (6.4-8.2)
[2019-05-28] MEDS ORDERED: MAGNESIUM SULFATE 2GM 50 ML IV ONE (21:45)
[2019-05-28] MEDS: IV NORMAL SALINE 1000ML BAG 1,000 ML IV SCH (21:49)
--- NOTE | 2019-05-28 21:52 | RAD ---
PQRS Compliance Statement: One or more of the following individualized dose reduction techniques were utilized for this examination: 1. Automated exposure control 2. Adjustment of the mA and/or kV according to patient size 3. Use of iterative reconstruction technique CT abdomen/pelvis without contrast 05/28/2019 9:15 PM INDICATION: Lower abdominal pain COMPARISON: CT abdomen/pelvis May 25, 2019 TECHNIQUE: Multiple axial CT images of the abdomen and pelvis were obtained without intravenous contrast. Coronal and sagittal reformats are provided. FINDINGS: Lung bases are clear. Aortic valvular calcifications or prosthesis is identified. Heart size within normal limits. Evaluation of the solid abdominal viscera is limited by lack of intravenous contrast. Calcifications within the spleen likely represent sequela prior granulomatous exposure. Stable appearance of the liver, bilateral adrenal glands, pancreas and gallbladder. Calcified gallstones are identified within the gallbladder. Dense calcified atheromatous plaque identified involving the abdominal aorta. Aortobiiliac stent graft is identified with occlusion of the [place] aorta and common iliac arteries. External iliac stent grafts are visualized. Evaluation is limited by lack of intravenous contrast. No pathologically enlarged lymph nodes are identified in abdomen and pelvis. There is no free fluid or free intraperitoneal air. Moderate amount of stool is noted throughout the colon. Findings are stable. Small and large bowel are normal in caliber. There is no evidence for bowel obstruction. There are no pericolonic inflammatory changes. A normal, nondilated appendix is visualized without adjacent inflammatory changes. There is asymmetric atrophy of the inferior pole left kidney. No hydronephrosis. Urinary bladder is within normal limits given degree of distention. Stable 2 mm nonobstructing left renal calculus in the interpolar left kidney. No new suspicious osseous abnormality. Mild osteoarthrosis of the hips. IMPRESSION: 1. No evidence for bowel obstruction or inflammation. Moderate amount of stool is noted throughout the colon, stable. 2. Cholelithiasis. 3. Atrophy of the inferior pole left kidney. 2 mm nonobstructing calculus is identified in the left kidney. Electronically signed by: Lisa Muir MD (05/28/2019 9:49 PM) [facility]
[2019-05-28 22:33] LABS: BASO # 0.1 x10^3/uL (0.0-0.2); BASO % 1 % (0-3); EOS % 0 % (0-3); HEMATOCRIT 38.9 % (36.0-47.0); HEMOGLOBIN 13.1 g/dL (12.0-15.5); LYMPH # 1.6 x10^3/uL (1.0-4.8); LYMPH % 15 % (24-48); MEAN CORPUSCULAR HEMOGLOBIN 30 pg (25-35); MEAN CORPUSCULAR HGB CONC 34 g/dL (31-37); MEAN CORPUSCULAR VOLUME 90 fL (79-100); MONO # 0.5 x10^3/uL (0.0-1.1); MONO % 5 % (0-9); NEUT # 8.3 x10^3/uL (1.8-7.7); NEUT % 79 % (31-73); PLATELET COUNT 355 x10^3/uL (140-400); RED BLOOD COUNT 4.31 x10^6/uL (3.50-5.40); WHITE BLOOD COUNT 10.5 x10^3/uL (4.0-11.0)
[2019-05-28 23:06] VITALS: BP 146/60
[2019-05-29] MEDS ORDERED: TEMAZEPAM 15 MG CAPSULE PO PRN
[2019-05-29] MEDS ORDERED: traMADol 50 MG TABLET PO PRN
[2019-05-29] MEDS ORDERED: PSYLLIUM HUSK (SUGAR FREE) 1 PKT PACKET PO PRN
[2019-05-29] MEDS ORDERED: ACETAMINOPHEN 500 MG TABLET PO PRN
--- NOTE | 2019-05-29 03:15 | HP ---
ADMIT DATE: 05/28/2019 CHIEF COMPLAINT: Chest pain and nausea. HISTORY OF PRESENT ILLNESS: The patient is a pleasant elderly female who ate at [employer], had some chicken taco. She thinks that she chicken taco may have exacerbated her nausea. She also has some associated chest pain. She came in by ambulance. I discussed the case with ER physician. I do not know the patient. She has known cardiac problems. We are going to admit the patient and give her some p.r.n. antiemetics, and morphine and fluids and consult Gastroenterology and Cardiology. PAST MEDICAL/SURGICAL HISTORY: CAD, arthritis, hypertension, hyperlipidemia, peripheral vascular disease, blood clots, bowel obstruction, fem-pop bypass, left carotid surgery, arterial vascular surgery, and cardiac stents. ALLERGIES: SULFA. FAMILY HISTORY: Coronary artery disease. SOCIAL HISTORY: She does not drink, smoke, or take drugs. MEDICATIONS: Reviewed, please refer to the MRAD. REVIEW OF SYSTEMS: GENERAL: No history of weight change, weakness or fevers. SKIN: No bruising, hair changes or rashes. EYES: No blurred, double or loss of vision. NOSE AND THROAT: No history of nosebleeds, hoarseness or sore throat. CARDIAC: She complains of chest pain. LUNGS: Denies cough, hemoptysis, wheezing or shortness of breath. GASTROINTESTINAL: She complains of abdominal pain and nausea. GENITOURINARY: No history of frequency, urgency, hesitancy or nocturia. NEUROLOGIC: Denies history of numbness, tingling, tremor or weakness. PSYCHIATRIC: No history of panic, anxiety or depression. ENDOCRINE: No history of heat or cold intolerance, polyuria or polydipsia. EXTREMITIES: Denies muscle weakness, joint pain, pain on walking or stiffness. PHYSICAL EXAMINATION: VITALS: Within normal limits and are stable. GENERAL: No apparent distress. Alert and oriented. HEENT: She has periorbital edema. NECK: Supple, no JVD, no thyromegaly was noted. LUNGS: Clear to auscultation in all lung handy without rhonchi or wheezing. HEART: RRR, S1, S2 present. Peripheral pulses intact, no obvious murmurs were noted. GASTROINTESTINAL: She has some abdominal pain to palpation, with decreased bowel sounds. EXTREMITIES: Without any cyanosis, clubbing, or edema. Pedal pulses intact, Homans sign is negative. NEUROLOGIC: Normal speech, normal tone. A & O x3, moves all extremities, no obvious focal deficits. PSYCHIATRIC: Normal affect, normal mood. Stable. SKIN: No ulcerations or rashes, good skin turgor, no jaundice. VASCULAR: Good capillary refill, neurovascular bundle appears to be intact. LABORATORY DATA: INR is 0.9. Troponin is 0. ASSESSMENT AND PLAN: Nausea, vomiting, chest pain, and abdominal pain after eating at [employer]. The patient has been admitted. We will give her p.r.n. antiemetics, p.r.n. morphine, IV fluids. Consult Cardiology and consult Gastroenterology. Home medications. Deep vein thrombosis prophylaxis ____. JUNG AYALA DO DR: BINA/lexi JOB#: [id number] / [id number]
[2019-05-29 03:21] VITALS: BP 110/58
[2019-05-29 07:00] VITALS: BP 114/62
[2019-05-29] MEDS: IV NORMAL SALINE 1000ML BAG 1,000 ML IV SCH ×2 (08:47→17:56)
[2019-05-29] MEDS ORDERED: hydroCHLOROthiazide 25 MG TABLET PO SCH (09:00)
[2019-05-29] MEDS ORDERED: CEPHALEXIN 250 MG CAPSULE. PO SCH (09:00)
[2019-05-29] MEDS ORDERED: POLYETHYLENE GLYCOL 3350 17 GM PACKET. PO SCH (09:00)
--- NOTE | 2019-05-29 09:22 | PDOC2 ---
RENÉ SERRANO [facility] 05/29/19 0922: CARDIAC CONSULT DATE OF CONSULT Date of Consult DATE: 05/29/19 TIME: 09:15 REASON FOR CONSULT Reason for Consult: Chest pain REFERRING PHYSICIAN Referring Physician: Bipin SOURCE Source: Chart review, Patient HISTORY OF PRESENT ILLNESS HISTORY OF PRESENT ILLNESS This is a pleasant 84 yo female admitted for complains of abdominal pain. So far for me she denies any chest pain. Reports that she was in ED Sunday and was vomiting and was given antibiotics. She has been complaining of constipation and the last time she had some BM was Sunday but otherwise none since then. She did take miralax yesterday but no stool. She went to [employer] around noon yesterday with her daughter. She ate chicekn tacos and her daughter ate chicken salad. Now they are both in the hospital with the same symptoms. She went to [facility] yesterday after [employer] when sshe started having abdominal pain then nausea and has not felt better since. No chest pain, SOA, and no palpitations. No fever or chills but felt bloated and currently has some tenderenss with palpation to her abdomen. She has been complaint with her medications but unclear if she is still taking brilinta. PAST MEDICAL HISTORY Past Medical History Cardiovascular: HTN, Hyperlipidemia, Other (PVD), CAD, cardiac arrest Pulmonary: COPD CENTRAL NERVOUS SYSTEM: TIA Musculoskeletal: Osteoarthritis Renal/: Urinary Incontinence PAST SURGICAL HISTORY Past Surgical History PCI/stent, (Fem-pop bypass, CEA FAMILY HISTORY Family History: Heart Disease SOCIAL HISTORY Smoke: Quit ALCOHOL: none Drugs: None Lives: with Family CURRENT MEDICATIONS CURRENT MEDICATIONS Current Medications Medications (Trade) Dose Ordered Sig/[place] Route PRN Reason Start Time Stop Time Status Last Admin Dose Admin Aspirin (Children'S Aspirin) 324 mg 1X ONCE PO 05/28/19 19:45 05/28/19 19:46 DC 05/28/19 19:40 Ondansetron HCl (Zofran) 4 mg 1X ONCE IV 05/28/19 20:15 05/28/19 20:32 DC 05/28/19 20:24 Fentanyl Citrate (Fentanyl 2ml Vial) 50 mcg 1X ONCE IV 05/28/19 21:15 05/28/19 21:16 DC 05/28/19 21:14 Magnesium Sulfate 50 ml @ 25 mls/hr 1X ONCE IV 05/28/19 21:45 05/28/19 23:44 DC 05/28/19 21:51 Sodium Chloride 1,000 ml @ 100 mls/hr Q10H IV 05/28/19 21:45 05/29/19 21:44 05/29/19 08:48 ALLERGIES ALLERGIES: Coded Allergies: Sulfa (Sulfonamide Antibiotics) (Verified Allergy, Severe, TONGUE SWELLING, 04/07/14) ROS Review of System 14 point ROS evaluated with pertinent positives noted per HPI PHYSICAL EXAM General: Alert, Oriented X3, Cooperative, No acute distress HEENT: Atraumatic, Mucous membr. moist/pink Lungs: Clear to auscultation, Normal air movement Heart: Regular rate (SR), Normal S1, Normal S2, Other (3/6 systolic murmur to apex) Abdomen: Other (diffuse abd tenderness with hyperactive bowel sounds) Extremities: No cyanosis, No edema Skin: No breakdown, No significant lesion Neuro: Normal speech, Sensation intact Psych/Mental Status: Mental status NL, Mood NL MUSCULOSKELETAL: Osteoarthritic changes both hands VITALS/I&O VITALS/I&O: Vital Signs Date Time Temp Pulse Resp B/P (MAP) Pulse Ox O2 Delivery O2 Flow Rate FiO2 05/29/19 08:00 Room Air 05/29/19 07:00 98.3 66 16 114/62 (79) 96 98.3 I & O 05/28/19 05/28/19 05/29/19 14:59 22:59 06:59 Intake Total 120 ml Output Total 800 ml Balance -680 ml LABS Lab: Laboratory Tests Test 05/28/19 20:28 05/28/19 20:42 05/28/19 22:05 05/29/19 00:25 Prothrombin Time 11.8 SEC (11.7-14.0) Prothrombin Time INR 0.9 (0.8-1.1) Sodium Level 138 mmol/L (136-145) Potassium Level 3.4 mmol/L (3.5-5.1) L Chloride Level 96 mmol/L (98-107) L Carbon Dioxide Level 28 mmol/L (21-32) Anion Gap 14 (6-14) Blood Urea Nitrogen 23 mg/dL (7-20) H Creatinine 1.2 mg/dL (0.6-1.0) H Estimated GFR (Cockcroft-Gault) 51.5 BUN/Creatinine Ratio 19 (6-20) Glucose Level 140 mg/dL (70-99) H Lactic Acid Level 1.4 mmol/L (0.4-2.0) Calcium Level 10.3 mg/dL (8.5-10.1) H Magnesium Level 1.6 mg/dL (1.8-2.4) L Total Bilirubin 0.2 mg/dL (0.2-1.0) Aspartate Amino Transferase (AST) 23 U/L (15-37) Alanine Aminotransferase (ALT) 17 U/L (14-59) Alkaline Phosphatase 123 U/L (46-116) H Creatine Kinase 289 U/L (26-192) H Troponin I Quantitative < 0.017 ng/mL (0.000-0.055) 0.033 ng/mL (0.000-0.055) MI-Bcd-D-Type Natriuretic Peptide 1277 pg/mL (0-449) H Total Protein 8.8 g/dL (6.4-8.2) H Albumin 4.2 g/dL (3.4-5.0) Albumin/Globulin Ratio 0.9 (1.0-1.7) L Lipase 33 U/L (73-393) L Urine Collection Type Unknown Urine Color Yellow Urine Clarity Clear Urine pH 7.0 Urine Specific [place] 1.010 Urine Protein 100 mg/dL (NEG-TRACE) Urine Glucose (UA) Negative mg/dL (NEG) Urine Ketones (Stick) Negative mg/dL (NEG) Urine Blood Trace (NEG) Urine Nitrite Negative (NEG) Urine Bilirubin Negative (NEG) Urine Urobilinogen Dipstick 0.2 mg/dL (0.2 mg/dL) Urine Leukocyte Esterase Negative (NEG) Urine RBC 3-5 /HPF (0-2) Urine WBC 0 /HPF (0-4) Urine Bacteria 0 /HPF (0-FEW) White Blood Count 10.5 x10^3/uL (4.0-11.0) Red Blood Count 4.31 x10^6/uL (3.50-5.40) Hemoglobin 13.1 g/dL (12.0-15.5) Hematocrit 38.9 % (36.0-47.0) Mean Corpuscular Volume 90 fL (79-100) Mean Corpuscular Hemoglobin 30 pg (25-35) Mean Corpuscular Hemoglobin Concent 34 g/dL (31-37) Red Cell Distribution Width 15.0 % (11.5-14.5) H Platelet Count 355 x10^3/uL (140-400) Neutrophils (%) (Auto) 79 % (31-73) H Lymphocytes (%) (Auto) 15 % (24-48) L Monocytes (%) (Auto) 5 % (0-9) Eosinophils (%) (Auto) 0 % (0-3) Basophils (%) (Auto) 1 % (0-3) Neutrophils # (Auto) 8.3 x10^3/uL (1.8-7.7) H Lymphocytes # (Auto) 1.6 x10^3/uL (1.0-4.8) Monocytes # (Auto) 0.5 x10^3/uL (0.0-1.1) Eosinophils # (Auto) 0.0 x10^3/uL (0.0-0.7) Basophils # (Auto) 0.1 x10^3/uL (0.0-0.2) Test 05/29/19 03:45 Troponin I Quantitative 0.031 ng/mL (0.000-0.055) Laboratory Tests 05/28/19 22:05 Laboratory Tests 05/28/19 20:28 ECHOCARDIOGRAM ECHOCARDIOGRAM <Conclusion> Limited ECHO for LV function. The left ventricle is normal size. The left ventricular systolic function is normal and the ejection fraction is within normal range. The Ejection Fraction is 50-55%. There is normal LV segmental wall motion. There is mild concentric left ventricular hypertrophy. DATE: 03/05/19 1449 HEART CATH HEART CATH Conclusion 1. Elevated left sided filling pressures, consistent with acute on chronic diastolic HF 2. Critical LM disease and RCA occlusion 3. Successful PCI of the LM with a 4.0/12 mm DRE, post-dilated with a 4.5 mm NC balloon. Recommendations ASA 81mg daily Ticagrelor 90mg bid x 1 year, consider lifelong DAPT. Continue weaning plans per pulmonary team. DATE: 03/04/19 0822 ASSESSMENT/PLAN ASSESSMENT/PLAN 1. Abdominal pain/vomiting: no chest pain. GI following 2. Constipation with possible food poisoning: daughter inpt as well with same symptoms. 3. CAD: clinically stable. PCI/DRE to LM as above report 4. Chronic RBBB 5. 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 Chronic diastolic CHF: compensated Recommendations 1. Push fluids. 2. ASA brilinta 3. Secondary prevention measures. SEGUNDO BRAXTON MD 05/29/19 1800: CARDIAC CONSULT ASSESSMENT/PLAN ASSESSMENT/PLAN Patient seen and examined. Agree with above nurse practitioner note 84-year-old woman well known to our service. No obvious cardiac pathology noted. Enzymes and EKG unremarkable. Supportive care. No further cardiac testing necessary at this time. RENÉ SERRANO APRN May 29, 2019 09:22 SEGUNDO BRAXTON MD May 29, 2019 18:00
--- NOTE | 2019-05-29 09:40 | PDOC2 ---
GI CONSULT Reason For Consult: Nausea HPI: HPI: 84 y/o female who we have seen in the past. Ate chicken for lunch at [employer] yesterday w/ daughter, both became ill yesterday evening, both admitted through ER. She describes lower abdominal pain, lots of vomiting, and left-sided chest pain ("just a pain"). Feeling better now. Hasn't stooled since Sunday despite trying Miralax. Has been NPO this morning, cardiology to see. Denies GERD, dysphagia, chronic n/v or abd pain, diarrhea, and bleeding. Feeling well/eating well prior to last evening. H/o IBS w/ alternating bowel habits. Outpt scopes recommended several times in the past. No liver, pancreas, or PUD history. Diverticulosis and cholelithiasis on imaging. Does have h/o SBO. On ASA ?and Brilinta (pt/staff not sure) w/ h/o CAD/stent. PMH: PMH: HTN, HLD, PAD, SBO, ?DVT, uterine fibroids, TIA, OA, diverticulosis, AAA, ?CKD breast biopsy, aortofem graft, carotid endarterectomy FH: Family History: No pertinent hx Social History: ALCOHOL: none Drugs: None ROS: GEN: Denies fevers, chills, sweats HEENT: Denies blurred vision, sore throat CV: +chest pain RESP: Denies shortness of air, cough GI: Per HPI : Denies hematuria, dysuria ENDO: Denies weight changes NEURO: Denies confusion, dizziness MSK: Denies weakness, joint pain/swelling SKIN: Denies jaundice, pruritus Vitals: Vitals: Vital Signs Date Time Temp Pulse Resp B/P (MAP) Pulse Ox O2 Delivery O2 Flow Rate FiO2 05/29/19 08:00 Room Air 05/29/19 07:00 98.3 66 16 114/62 (79) 96 98.3 Labs: Labs: Laboratory Tests Test 05/28/19 20:28 05/28/19 20:42 05/28/19 22:05 05/29/19 00:25 Prothrombin Time 11.8 SEC (11.7-14.0) Prothromb Time International Ratio 0.9 (0.8-1.1) Sodium Level 138 mmol/L (136-145) Potassium Level 3.4 mmol/L (3.5-5.1) Chloride Level 96 mmol/L (98-107) Carbon Dioxide Level 28 mmol/L (21-32) Anion Gap 14 (6-14) Blood Urea Nitrogen 23 mg/dL (7-20) Creatinine 1.2 mg/dL (0.6-1.0) Estimated GFR (Cockcroft-Gault) 51.5 BUN/Creatinine Ratio 19 (6-20) Glucose Level 140 mg/dL (70-99) Lactic Acid Level 1.4 mmol/L (0.4-2.0) Calcium Level 10.3 mg/dL (8.5-10.1) Magnesium Level 1.6 mg/dL (1.8-2.4) Total Bilirubin 0.2 mg/dL (0.2-1.0) Aspartate Amino Transf (AST/SGOT) 23 U/L (15-37) Alanine Aminotransferase (ALT/SGPT) 17 U/L (14-59) Alkaline Phosphatase 123 U/L (46-116) Creatine Kinase 289 U/L (26-192) Troponin I Quantitative < 0.017 ng/mL (0.000-0.055) 0.033 ng/mL (0.000-0.055) JX-Xkm-E-Type Natriuretic Peptide 1277 pg/mL (0-449) Total Protein 8.8 g/dL (6.4-8.2) Albumin 4.2 g/dL (3.4-5.0) Albumin/Globulin Ratio 0.9 (1.0-1.7) Lipase 33 U/L (73-393) Urine Collection Type Unknown Urine Color Yellow Urine Clarity Clear Urine pH 7.0 Urine Specific [place] 1.010 Urine Protein 100 mg/dL (NEG-TRACE) Urine Glucose (UA) Negative mg/dL (NEG) Urine Ketones (Stick) Negative mg/dL (NEG) Urine Blood Trace (NEG) Urine Nitrite Negative (NEG) Urine Bilirubin Negative (NEG) Urine Urobilinogen Dipstick 0.2 mg/dL (0.2 mg/dL) Urine Leukocyte Esterase Negative (NEG) Urine RBC 3-5 /HPF (0-2) Urine WBC 0 /HPF (0-4) Urine Bacteria 0 /HPF (0-FEW) White Blood Count 10.5 x10^3/uL (4.0-11.0) Red Blood Count 4.31 x10^6/uL (3.50-5.40) Hemoglobin 13.1 g/dL (12.0-15.5) Hematocrit 38.9 % (36.0-47.0) Mean Corpuscular Volume 90 fL (79-100) Mean Corpuscular Hemoglobin 30 pg (25-35) Mean Corpuscular Hemoglobin Concent 34 g/dL (31-37) Red Cell Distribution Width 15.0 % (11.5-14.5) Platelet Count 355 x10^3/uL (140-400) Neutrophils (%) (Auto) 79 % (31-73) Lymphocytes (%) (Auto) 15 % (24-48) Monocytes (%) (Auto) 5 % (0-9) Eosinophils (%) (Auto) 0 % (0-3) Basophils (%) (Auto) 1 % (0-3) Neutrophils # (Auto) 8.3 x10^3/uL (1.8-7.7) Lymphocytes # (Auto) 1.6 x10^3/uL (1.0-4.8) Monocytes # (Auto) 0.5 x10^3/uL (0.0-1.1) Eosinophils # (Auto) 0.0 x10^3/uL (0.0-0.7) Basophils # (Auto) 0.1 x10^3/uL (0.0-0.2) Test 05/29/19 03:45 Troponin I Quantitative 0.031 ng/mL (0.000-0.055) Allergies: Coded Allergies: Sulfa (Sulfonamide Antibiotics) (Verified Allergy, Severe, TONGUE SWELLING, 04/07/14) Medications: Current Medications Medications (Trade) Dose Ordered Sig/[place] Route PRN Reason Start Time Stop Time Status Last Admin Dose Admin Aspirin (Children'S Aspirin) 324 mg 1X ONCE PO 05/28/19 19:45 05/28/19 19:46 DC 05/28/19 19:40 Ondansetron HCl (Zofran) 4 mg 1X ONCE IV 05/28/19 20:15 05/28/19 20:32 DC 05/28/19 20:24 Fentanyl Citrate (Fentanyl 2ml Vial) 50 mcg 1X ONCE IV 05/28/19 21:15 05/28/19 21:16 DC 05/28/19 21:14 Magnesium Sulfate 50 ml @ 25 mls/hr 1X ONCE IV 05/28/19 21:45 05/28/19 23:44 DC 05/28/19 21:51 Sodium Chloride 1,000 ml @ 100 mls/hr Q10H IV 05/28/19 21:45 05/29/19 21:44 05/29/19 08:48 Imaging: Imaging: CT A/P FINDINGS: Lung bases are clear. Aortic valvular calcifications or prosthesis is identified. Heart size within normal limits. Evaluation of the solid abdominal viscera is limited by lack of intravenous contrast. Calcifications within the spleen likely represent sequela prior granulomatous exposure. Stable appearance of the liver, bilateral adrenal glands, pancreas and gallbladder. Calcified gallstones are identified within the gallbladder. Dense calcified atheromatous plaque identified involving the abdominal aorta. Aortobiiliac stent graft is identified with occlusion of the [place] aorta and common iliac arteries. External iliac stent grafts are visualized. Evaluation is limited by lack of intravenous contrast. No pathologically enlarged lymph nodes are identified in abdomen and pelvis. There is no free fluid or free intraperitoneal air. Moderate amount of stool is noted throughout the colon. Findings are stable. Small and large bowel are normal in caliber. There is no evidence for bowel obstruction. There are no pericolonic inflammatory changes. A normal, nondilated appendix is visualized without adjacent inflammatory changes. There is asymmetric atrophy of the inferior pole left kidney. No hydronephrosis. Urinary bladder is within normal limits given degree of distention. Stable 2 mm nonobstructing left renal calculus in the interpolar left kidney. No new suspicious osseous abnormality. Mild osteoarthrosis of the hips. IMPRESSION: 1. No evidence for bowel obstruction or inflammation. Moderate amount of stool is noted throughout the colon, stable. 2. Cholelithiasis. 3. Atrophy of the inferior pole left kidney. 2 mm nonobstructing calculus is identified in the left kidney. CXR IMPRESSION: No acute cardiopulmonary process. PE: GEN: NAD HEENT: Atraumatic, PERRL LUNGS: CTAB HEART: RRR ABD: NABS, S/ND/NT EXTREMITY: No edema SKIN: No rashes, no jaundice NEURO/PSYCH: A & O �3 A/P: A/P: Lower abd pain, vomiting, left-sided chest pain H/o CAD IBS-M, currently w/ constipation CRC screen - none Diverticulosis Cholelithiasis -- ?food poisoning Continue per cardiology. Okay to try clears and ADAT per GI - d/w nurse. 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 Treat constipation. Does have gallstones on CT, consider further eval w/ US if indicated. TISHA PAUL May 29, 2019 09:40
[2019-05-29 10:05] LABS: CALCIUM 8.8 mg/dL (8.5-10.1); CREATININE 1.3 mg/dL (0.6-1.0); MAGNESIUM 1.9 mg/dL (1.8-2.4); POTASSIUM 3.7 mmol/L (3.5-5.1)
[2019-05-29] MEDS: OMEGA-3 FATTY ACIDS/FISH OIL 1,000 MG CAPSULE. PO SCH (10:25)
[2019-05-29] MEDS: LOSARTAN POTASSIUM 50 MG TABLET. PO SCH (10:25)
[2019-05-29] MEDS: CHOLECALCIFEROL (VITAMIN D3) 5,000 UNIT CAPSULE PO SCH (10:25)
[2019-05-29] MEDS: amLODIPine BESYLATE 10 MG TABLET PO SCH (10:26)
[2019-05-29] MEDS: ASPIRIN ENTERIC COATED 81 MG TABLET.DR. PO SCH (10:26)
[2019-05-29] MEDS: TICAGRELOR 90 MG TABLET. PO SCH ×2 (10:29→20:38)
[2019-05-29 11:00] VITALS: BP 115/61
--- NOTE | 2019-05-29 11:09 | PDOC ---
[facility] [facility] PROGRESS NOTE Chief Complaint Chief Complaint CP Nausea CAD Arthritis Hypertension Hyperlipidemia Peripheral Vascular Disease Blood clots Bowel obstruction Fem-pop Bypass Left Carotid Surgery Arterial Vascular Surgery Cardiac stents History of Present Illness History of Present Illness 05/29/19 Pt seen and examined Pt in NAD DW pt regarding care DW RN Reviewed chart Vitals/I&O Vitals/I&O: Vital Signs Date Time Temp Pulse Resp B/P (MAP) Pulse Ox O2 Delivery O2 Flow Rate FiO2 05/29/19 10:29 66 114/62 05/29/19 08:00 Room Air 05/29/19 07:00 98.3 16 96 98.3 I & O 05/28/19 05/28/19 05/29/19 14:59 22:59 06:59 Intake Total 120 ml Output Total 800 ml Balance -680 ml Physical Exam General: Alert, Oriented X3, No acute distress Heart: Regular rate, Normal S1, Normal S2 Lungs: Clear Abdomen: Soft, No masses Extremities: No clubbing, No cyanosis Skin: No rashes, No breakdown Labs Labs: Laboratory Tests Test 05/28/19 20:28 05/28/19 20:42 05/28/19 22:05 05/29/19 00:25 Prothrombin Time 11.8 SEC (11.7-14.0) Prothromb Time International Ratio 0.9 (0.8-1.1) Sodium Level 138 mmol/L (136-145) Potassium Level 3.4 mmol/L (3.5-5.1) Chloride Level 96 mmol/L (98-107) Carbon Dioxide Level 28 mmol/L (21-32) Anion Gap 14 (6-14) Blood Urea Nitrogen 23 mg/dL (7-20) Creatinine 1.2 mg/dL (0.6-1.0) Estimated GFR (Cockcroft-Gault) 51.5 BUN/Creatinine Ratio 19 (6-20) Glucose Level 140 mg/dL (70-99) Lactic Acid Level 1.4 mmol/L (0.4-2.0) Calcium Level 10.3 mg/dL (8.5-10.1) Magnesium Level 1.6 mg/dL (1.8-2.4) Total Bilirubin 0.2 mg/dL (0.2-1.0) Aspartate Amino Transf (AST/SGOT) 23 U/L (15-37) Alanine Aminotransferase (ALT/SGPT) 17 U/L (14-59) Alkaline Phosphatase 123 U/L (46-116) Creatine Kinase 289 U/L (26-192) Troponin I Quantitative < 0.017 ng/mL (0.000-0.055) 0.033 ng/mL (0.000-0.055) RW-Ajw-E-Type Natriuretic Peptide 1277 pg/mL (0-449) Total Protein 8.8 g/dL (6.4-8.2) Albumin 4.2 g/dL (3.4-5.0) Albumin/Globulin Ratio 0.9 (1.0-1.7) Lipase 33 U/L (73-393) Urine Collection Type Unknown Urine Color Yellow Urine Clarity Clear Urine pH 7.0 Urine Specific [place] 1.010 Urine Protein 100 mg/dL (NEG-TRACE) Urine Glucose (UA) Negative mg/dL (NEG) Urine Ketones (Stick) Negative mg/dL (NEG) Urine Blood Trace (NEG) Urine Nitrite Negative (NEG) Urine Bilirubin Negative (NEG) Urine Urobilinogen Dipstick 0.2 mg/dL (0.2 mg/dL) Urine Leukocyte Esterase Negative (NEG) Urine RBC 3-5 /HPF (0-2) Urine WBC 0 /HPF (0-4) Urine Bacteria 0 /HPF (0-FEW) White Blood Count 10.5 x10^3/uL (4.0-11.0) Red Blood Count 4.31 x10^6/uL (3.50-5.40) Hemoglobin 13.1 g/dL (12.0-15.5) Hematocrit 38.9 % (36.0-47.0) Mean Corpuscular Volume 90 fL (79-100) Mean Corpuscular Hemoglobin 30 pg (25-35) Mean Corpuscular Hemoglobin Concent 34 g/dL (31-37) Red Cell Distribution Width 15.0 % (11.5-14.5) Platelet Count 355 x10^3/uL (140-400) Neutrophils (%) (Auto) 79 % (31-73) Lymphocytes (%) (Auto) 15 % (24-48) Monocytes (%) (Auto) 5 % (0-9) Eosinophils (%) (Auto) 0 % (0-3) Basophils (%) (Auto) 1 % (0-3) Neutrophils # (Auto) 8.3 x10^3/uL (1.8-7.7) Lymphocytes # (Auto) 1.6 x10^3/uL (1.0-4.8) Monocytes # (Auto) 0.5 x10^3/uL (0.0-1.1) Eosinophils # (Auto) 0.0 x10^3/uL (0.0-0.7) Basophils # (Auto) 0.1 x10^3/uL (0.0-0.2) Test 05/29/19 03:45 Sodium Level 142 mmol/L (136-145) Potassium Level 3.7 mmol/L (3.5-5.1) Chloride Level 103 mmol/L (98-107) Carbon Dioxide Level 29 mmol/L (21-32) Anion Gap 10 (6-14) Blood Urea Nitrogen 23 mg/dL (7-20) Creatinine 1.3 mg/dL (0.6-1.0) Estimated GFR (Cockcroft-Gault) 47.0 Glucose Level 117 mg/dL (70-99) Calcium Level 8.8 mg/dL (8.5-10.1) Magnesium Level 1.9 mg/dL (1.8-2.4) Troponin I Quantitative 0.031 ng/mL (0.000-0.055) Review of Systems Review of Systems: Pt c/o mild abd pain Pt c/o nausea Pt has no c/o of headache Assessment and Plan Assessmemt and Plan Problems Medical Problems: (1) Acute gastritis Status: Acute (2) Chest pain Status: Acute (3) Cholelithiasis Status: Acute (4) Hypokalemia Status: Acute (5) Hypomagnesemia Status: Acute (6) Renal insufficiency Status: Acute Assessment CP Nausea CAD Arthritis Hypertension Hyperlipidemia Peripheral Vascular Disease Blood clots Bowel obstruction Fem-pop Bypass Left Carotid Surgery Arterial Vascular Surgery Cardiac stents Plan Cardiac Monitoring Serial Cardiac Enzymes Serial EKGs PRN Zofran IVF DVT Prophylaxis Await further Subspecialist input Comment Review of Relevant I have reviewed the following items ne (where applicable) has been applied. Medications: Current Medications Medications (Trade) Dose Ordered Sig/[place] Route PRN Reason Start Time Stop Time Status Last Admin Dose Admin Aspirin (Children'S Aspirin) 324 mg 1X ONCE PO 05/28/19 19:45 05/28/19 19:46 DC 05/28/19 19:40 Ondansetron HCl (Zofran) 4 mg 1X ONCE IV 05/28/19 20:15 05/28/19 20:32 DC 05/28/19 20:24 Fentanyl Citrate (Fentanyl 2ml Vial) 50 mcg 1X ONCE IV 05/28/19 21:15 05/28/19 21:16 DC 05/28/19 21:14 Magnesium Sulfate 50 ml @ 25 mls/hr 1X ONCE IV 05/28/19 21:45 05/28/19 23:44 DC 05/28/19 21:51 Sodium Chloride 1,000 ml @ 100 mls/hr Q10H IV 05/28/19 21:45 05/29/19 21:44 05/29/19 08:48 Amlodipine Besylate (Norvasc) 10 mg DAILY PO 05/29/19 09:00 05/29/19 10:29 Aspirin (Ecotrin) 81 mg DAILY08 PO 05/29/19 08:00 05/29/19 10:29 Vitamin D (Vitamin D3) 5,000 unit DAILY PO 05/29/19 09:00 05/29/19 10:29 Fish Oil (Fish Oil) 1,000 mg DAILY PO 05/29/19 09:00 05/29/19 10:29 Polyethylene Glycol (miraLAX PACKET) 17 gm DAILY PO 05/29/19 09:00 05/29/19 10:58 DC 05/29/19 10:29 Losartan Potassium (Cozaar) 100 mg DAILY PO 05/29/19 09:00 05/29/19 10:29 Ticagrelor (Brilinta) 90 mg BID PO 05/29/19 11:00 05/29/19 10:29 JUNG AYALA K III DO May 29, 2019 11:09
[2019-05-29] MEDS ORDERED: BISACODYL 5 MG TABLET.DR. PO ONE (11:30)
[2019-05-29] MEDS: PANTOPRAZOLE 40 MG TABLET.DR. PO SCH (13:13)
[2019-05-29 15:00] VITALS: BP 99/54
[2019-05-29] MEDS: ONDANSETRON PF 4 MG/2 ML VIAL. IV PRN (18:03)
[2019-05-29 19:46] VITALS: BP 124/59
[2019-05-29] MEDS: POLYETHYLENE GLYCOL 3350 17 GM PACKET. PO SCH (20:40)
[2019-05-29] MEDS ORDERED: ATORVASTATIN CALCIUM 10 MG TABLET. PO SCH (21:00)
[2019-05-29 22:11] VITALS: BP_SYST 142; BP_SYST 197; BP_DIAS 63; BP_DIAS 89
[2019-05-30 03:14] VITALS: BP 137/58
[2019-05-30 05:08] LABS: BASO # 0.1 x10^3/uL (0.0-0.2); BASO % 1 % (0-3); CALCIUM 8.6 mg/dL (8.5-10.1); EOS # 0.1 x10^3/uL (0.0-0.7); EOS % 2 % (0-3); GFR 63.6; HEMOGLOBIN 11.1 g/dL (12.0-15.5); LYMPH # 2.5 x10^3/uL (1.0-4.8); LYMPH % 28 % (24-48); MEAN CORPUSCULAR HEMOGLOBIN 30 pg (25-35); MEAN CORPUSCULAR HGB CONC 33 g/dL (31-37); MEAN CORPUSCULAR VOLUME 91 fL (79-100); MONO # 0.8 x10^3/uL (0.0-1.1); MONO % 9 % (0-9); NEUT # 5.5 x10^3/uL (1.8-7.7); NEUT % 61 % (31-73); PLATELET COUNT 321 x10^3/uL (140-400); POTASSIUM 3.3 mmol/L (3.5-5.1); RED BLOOD COUNT 3.72 x10^6/uL (3.50-5.40); RED CELL DISTRIBUTION WIDTH 14.7 % (11.5-14.5); WHITE BLOOD COUNT 9.1 x10^3/uL (4.0-11.0)
[2019-05-30 07:00] VITALS: BP 126/59
--- NOTE | 2019-05-30 07:41 | PDOC ---
PROGRESS NOTES Chief Complaint Chief Complaint CP Nausea CAD Arthritis Hypertension Hyperlipidemia Peripheral Vascular Disease Blood clots Bowel obstruction Fem-pop Bypass Left Carotid Surgery Arterial Vascular Surgery Cardiac stents History of Present Illness History of Present Illness Ms Soares is an 84yo F w/ PMHx HTN, HLD, PAD, SBO, ?DVT, uterine fibroids, TIA, OA, diverticulosis, AAA who presented with nausea, vomiting, chest pain and abdominal pain after eating at [employer]. Had 2 large BM yesterday. No n/v - tolerating clears but does not want to advance diet yet. Vitals Vitals Vital Signs Date Time Temp Pulse Resp B/P (MAP) Pulse Ox O2 Delivery O2 Flow Rate FiO2 05/30/19 07:34 Room Air 05/30/19 03:14 97.9 64 20 137/58 (84) 94 97.9 Physical Exam General: Alert, Oriented X3, Cooperative, No acute distress Heart: Regular rate (SR), Normal S1, Normal S2, Other (3/6 systolic murmur to apex) Lungs: Clear Abdomen: Other (diffuse abd tenderness with hyperactive bowel sounds) Extremities: No cyanosis, No edema Skin: No breakdown, No significant lesion Labs LABS Laboratory Tests Test 05/30/19 04:00 White Blood Count 9.1 x10^3/uL (4.0-11.0) Red Blood Count 3.72 x10^6/uL (3.50-5.40) Hemoglobin 11.1 g/dL (12.0-15.5) Hematocrit 34.0 % (36.0-47.0) Mean Corpuscular Volume 91 fL (79-100) Mean Corpuscular Hemoglobin 30 pg (25-35) Mean Corpuscular Hemoglobin Concent 33 g/dL (31-37) Red Cell Distribution Width 14.7 % (11.5-14.5) Platelet Count 321 x10^3/uL (140-400) Neutrophils (%) (Auto) 61 % (31-73) Lymphocytes (%) (Auto) 28 % (24-48) Monocytes (%) (Auto) 9 % (0-9) Eosinophils (%) (Auto) 2 % (0-3) Basophils (%) (Auto) 1 % (0-3) Neutrophils # (Auto) 5.5 x10^3/uL (1.8-7.7) Lymphocytes # (Auto) 2.5 x10^3/uL (1.0-4.8) Monocytes # (Auto) 0.8 x10^3/uL (0.0-1.1) Eosinophils # (Auto) 0.1 x10^3/uL (0.0-0.7) Basophils # (Auto) 0.1 x10^3/uL (0.0-0.2) Sodium Level 143 mmol/L (136-145) Potassium Level 3.3 mmol/L (3.5-5.1) Chloride Level 108 mmol/L (98-107) Carbon Dioxide Level 27 mmol/L (21-32) Anion Gap 8 (6-14) Blood Urea Nitrogen 16 mg/dL (7-20) Creatinine 1.0 mg/dL (0.6-1.0) Estimated GFR (Cockcroft-Gault) 63.6 Glucose Level 93 mg/dL (70-99) Calcium Level 8.6 mg/dL (8.5-10.1) Assessment and Plan Assessmemt and Plan Problems Medical Problems: (1) Acute gastritis Status: Acute (2) Arthritis Status: Chronic (3) CAD (coronary artery disease) Status: Chronic (4) Chest pain Status: Acute (5) Cholelithiasis Status: Acute (6) HLD (hyperlipidemia) Status: Chronic (7) HTN (hypertension) Status: Chronic (8) Hypokalemia Status: Acute (9) Hypomagnesemia Status: Acute (10) PVD (peripheral vascular disease) Status: Chronic (11) Renal insufficiency Status: Acute Comment Review of Relevant I have reviewed the following items ne (where applicable) has been applied. Labs Laboratory Tests Test 05/28/19 20:28 05/28/19 20:42 05/28/19 22:05 05/29/19 00:25 Prothrombin Time 11.8 SEC (11.7-14.0) Prothromb Time International Ratio 0.9 (0.8-1.1) Sodium Level 138 mmol/L (136-145) Potassium Level 3.4 mmol/L (3.5-5.1) Chloride Level 96 mmol/L (98-107) Carbon Dioxide Level 28 mmol/L (21-32) Anion Gap 14 (6-14) Blood Urea Nitrogen 23 mg/dL (7-20) Creatinine 1.2 mg/dL (0.6-1.0) Estimated GFR (Cockcroft-Gault) 51.5 BUN/Creatinine Ratio 19 (6-20) Glucose Level 140 mg/dL (70-99) Lactic Acid Level 1.4 mmol/L (0.4-2.0) Calcium Level 10.3 mg/dL (8.5-10.1) Magnesium Level 1.6 mg/dL (1.8-2.4) Total Bilirubin 0.2 mg/dL (0.2-1.0) Aspartate Amino Transf (AST/SGOT) 23 U/L (15-37) Alanine Aminotransferase (ALT/SGPT) 17 U/L (14-59) Alkaline Phosphatase 123 U/L (46-116) Creatine Kinase 289 U/L (26-192) Troponin I Quantitative < 0.017 ng/mL (0.000-0.055) 0.033 ng/mL (0.000-0.055) SR-Vmp-J-Type Natriuretic Peptide 1277 pg/mL (0-449) Total Protein 8.8 g/dL (6.4-8.2) Albumin 4.2 g/dL (3.4-5.0) Albumin/Globulin Ratio 0.9 (1.0-1.7) Lipase 33 U/L (73-393) Urine Collection Type Unknown Urine Color Yellow Urine Clarity Clear Urine pH 7.0 Urine Specific [place] 1.010 Urine Protein 100 mg/dL (NEG-TRACE) Urine Glucose (UA) Negative mg/dL (NEG) Urine Ketones (Stick) Negative mg/dL (NEG) Urine Blood Trace (NEG) Urine Nitrite Negative (NEG) Urine Bilirubin Negative (NEG) Urine Urobilinogen Dipstick 0.2 mg/dL (0.2 mg/dL) Urine Leukocyte Esterase Negative (NEG) Urine RBC 3-5 /HPF (0-2) Urine WBC 0 /HPF (0-4) Urine Bacteria 0 /HPF (0-FEW) White Blood Count 10.5 x10^3/uL (4.0-11.0) Red Blood Count 4.31 x10^6/uL (3.50-5.40) Hemoglobin 13.1 g/dL (12.0-15.5) Hematocrit 38.9 % (36.0-47.0) Mean Corpuscular Volume 90 fL (79-100) Mean Corpuscular Hemoglobin 30 pg (25-35) Mean Corpuscular Hemoglobin Concent 34 g/dL (31-37) Red Cell Distribution Width 15.0 % (11.5-14.5) Platelet Count 355 x10^3/uL (140-400) Neutrophils (%) (Auto) 79 % (31-73) Lymphocytes (%) (Auto) 15 % (24-48) Monocytes (%) (Auto) 5 % (0-9) Eosinophils (%) (Auto) 0 % (0-3) Basophils (%) (Auto) 1 % (0-3) Neutrophils # (Auto) 8.3 x10^3/uL (1.8-7.7) Lymphocytes # (Auto) 1.6 x10^3/uL (1.0-4.8) Monocytes # (Auto) 0.5 x10^3/uL (0.0-1.1) Eosinophils # (Auto) 0.0 x10^3/uL (0.0-0.7) Basophils # (Auto) 0.1 x10^3/uL (0.0-0.2) Test 05/29/19 03:45 05/30/19 04:00 Sodium Level 142 mmol/L (136-145) 143 mmol/L (136-145) Potassium Level 3.7 mmol/L (3.5-5.1) 3.3 mmol/L (3.5-5.1) Chloride Level 103 mmol/L (98-107) 108 mmol/L (98-107) Carbon Dioxide Level 29 mmol/L (21-32) 27 mmol/L (21-32) Anion Gap 10 (6-14) 8 (6-14) Blood Urea Nitrogen 23 mg/dL (7-20) 16 mg/dL (7-20) Creatinine 1.3 mg/dL (0.6-1.0) 1.0 mg/dL (0.6-1.0) Estimated GFR (Cockcroft-Gault) 47.0 63.6 Glucose Level 117 mg/dL (70-99) 93 mg/dL (70-99) Calcium Level 8.8 mg/dL (8.5-10.1) 8.6 mg/dL (8.5-10.1) Magnesium Level 1.9 mg/dL (1.8-2.4) Troponin I Quantitative 0.031 ng/mL (0.000-0.055) White Blood Count 9.1 x10^3/uL (4.0-11.0) Red Blood Count 3.72 x10^6/uL (3.50-5.40) Hemoglobin 11.1 g/dL (12.0-15.5) Hematocrit 34.0 % (36.0-47.0) Mean Corpuscular Volume 91 fL (79-100) Mean Corpuscular Hemoglobin 30 pg (25-35) Mean Corpuscular Hemoglobin Concent 33 g/dL (31-37) Red Cell Distribution Width 14.7 % (11.5-14.5) Platelet Count 321 x10^3/uL (140-400) Neutrophils (%) (Auto) 61 % (31-73) Lymphocytes (%) (Auto) 28 % (24-48) Monocytes (%) (Auto) 9 % (0-9) Eosinophils (%) (Auto) 2 % (0-3) Basophils (%) (Auto) 1 % (0-3) Neutrophils # (Auto) 5.5 x10^3/uL (1.8-7.7) Lymphocytes # (Auto) 2.5 x10^3/uL (1.0-4.8) Monocytes # (Auto) 0.8 x10^3/uL (0.0-1.1) Eosinophils # (Auto) 0.1 x10^3/uL (0.0-0.7) Basophils # (Auto) 0.1 x10^3/uL (0.0-0.2) Laboratory Tests Test 05/30/19 04:00 White Blood Count 9.1 x10^3/uL (4.0-11.0) Red Blood Count 3.72 x10^6/uL (3.50-5.40) Hemoglobin 11.1 g/dL (12.0-15.5) Hematocrit 34.0 % (36.0-47.0) Mean Corpuscular Volume 91 fL (79-100) Mean Corpuscular Hemoglobin 30 pg (25-35) Mean Corpuscular Hemoglobin Concent 33 g/dL (31-37) Red Cell Distribution Width 14.7 % (11.5-14.5) Platelet Count 321 x10^3/uL (140-400) Neutrophils (%) (Auto) 61 % (31-73) Lymphocytes (%) (Auto) 28 % (24-48) Monocytes (%) (Auto) 9 % (0-9) Eosinophils (%) (Auto) 2 % (0-3) Basophils (%) (Auto) 1 % (0-3) Neutrophils # (Auto) 5.5 x10^3/uL (1.8-7.7) Lymphocytes # (Auto) 2.5 x10^3/uL (1.0-4.8) Monocytes # (Auto) 0.8 x10^3/uL (0.0-1.1) Eosinophils # (Auto) 0.1 x10^3/uL (0.0-0.7) Basophils # (Auto) 0.1 x10^3/uL (0.0-0.2) Sodium Level 143 mmol/L (136-145) Potassium Level 3.3 mmol/L (3.5-5.1) Chloride Level 108 mmol/L (98-107) Carbon Dioxide Level 27 mmol/L (21-32) Anion Gap 8 (6-14) Blood Urea Nitrogen 16 mg/dL (7-20) Creatinine 1.0 mg/dL (0.6-1.0) Estimated GFR (Cockcroft-Gault) 63.6 Glucose Level 93 mg/dL (70-99) Calcium Level 8.6 mg/dL (8.5-10.1) Microbiology 05/28/19 Blood Culture - Preliminary, Resulted NO GROWTH AFTER 1 DAY Medications Current Medications Aspirin (Children'S Aspirin) 324 mg 1X ONCE PO Last administered on 05/28/19at 19:40; Start 05/28/19 at 19:45; Stop 05/28/19 at 19:46; Status DC Ondansetron HCl (Zofran) 4 mg 1X ONCE IV Last administered on 05/28/19at 20:24; Start 05/28/19 at 20:15; Stop 05/28/19 at 20:32; Status DC Morphine Sulfate (Morphine Sulfate) 2 mg PRN Q2HR PRN IV SEVERE PAIN; Start 05/28/19 at 20:45 Ondansetron HCl (Zofran) 4 mg QID PRN IV . Last administered on 05/29/19 18:07; Start 05/28/19 at 20:45 Fentanyl Citrate (Fentanyl 2ml Vial) 50 mcg 1X ONCE IV Last administered on 05/28/19 21:14; Start 05/28/19 at 21:15; Stop 05/28/19 at 21:16; Status DC Magnesium Sulfate 50 ml @ 25 mls/hr 1X ONCE IV Last administered on 05/28/19 21:51; Start 05/28/19 at 21:45; Stop 05/28/19 at 23:44; Status DC Sodium Chloride 1,000 ml @ 100 mls/hr Q10H IV Last administered on 05/29/19 17:56; Start 05/28/19 at 21:45; Stop 05/29/19 at 21:44; Status DC Acetaminophen (Tylenol) 500 mg PRN Q6HRS PRN PO MILD PAIN 1-3; Start 05/29/19 at 00:00 Amlodipine Besylate (Norvasc) 10 mg DAILY PO Last administered on 05/29/19 10:29; Start 05/29/19 at 09:00 Aspirin (Ecotrin) 81 mg DAILY08 PO Last administered on 05/29/19 10:29; Start 05/29/19 at 08:00 Vitamin D (Vitamin D3) 5,000 unit DAILY PO Last administered on 05/29/19 10:29; Start 05/29/19 at 09:00 Hydrochlorothiazide (Hydrodiuril) 25 mg DAILY PO ; Start 05/29/19 at 09:00 Fish Oil (Fish Oil) 1,000 mg DAILY PO Last administered on 05/29/19 10:29; Start 05/29/19 at 09:00 Polyethylene Glycol (miraLAX PACKET) 17 gm DAILY PO Last administered on 05/29/19 10:29; Start 05/29/19 at 09:00; Stop 05/29/19 at 10:58; Status DC Temazepam (Restoril) 30 mg PRN QHS PRN PO INSOMNIA Last administered on 05/29/19 20:43; Start 05/29/19 at 00:00 Tramadol HCl (Ultram) 50 mg PRN Q4HRS PRN PO MODERATE PAIN; Start 05/29/19 at 00:00 Cephalexin HCl (Keflex) 500 mg BID PO ; Start 05/29/19 at 09:00; Status Cancel Losartan Potassium (Cozaar) 100 mg DAILY PO Last administered on 05/29/19 10:29; Start 05/29/19 at 09:00 Atorvastatin Calcium (Lipitor) 10 mg HS PO Last administered on 05/29/19 20:43; Start 05/29/19 at 21:00 Psyllium Hydrophilic Mucilloid (Metamucil Fiber Packet) 1 pkt PRN DAILY PRN PO CONSTIPATION Last administered on 05/29/19 18:07; Start 05/29/19 at 00:00 Ticagrelor (Brilinta) 90 mg BID PO Last administered on 05/29/19 20:43; Start 05/29/19 at 11:00 Polyethylene Glycol (miraLAX PACKET) 17 gm BID PO Last administered on 05/29/19 20:43; Start 05/29/19 at 21:00 Pantoprazole Sodium (Protonix) 40 mg DAILYAC PO Last administered on 05/29/19 13:13; Start 05/29/19 at 11:30 Bisacodyl (Dulcolax Tab) 10 mg 1X ONCE PO Last administered on 05/29/19 13:13; Start 05/29/19 at 11:30; Stop 05/29/19 at 11:31; Status DC Active Scripts Active Cephalexin 500 Mg Capsule 1 Cap PO BID Reported Amlodipine Besylate 10 Mg Tablet 10 Mg PO DAILY Tramadol Hcl 50 Mg Tablet 50 Mg PO Q4H PRN Fish Oil 1,000 Mg Capsule ([place]-3 Fatty Acids/Fish Oil) 1 Each Capsule 1 Each PO Vitamin D3 (Cholecalciferol (Vitamin D3)) 5,000 Unit Capsule 5,000 Unit PO Acetaminophen 500 Mg Tablet 500 Mg PO Aspir 81 (Aspirin) 81 Mg Tablet.dr 81 Mg PO Hydrochlorothiazide Tablet (Hydrochlorothiazide) 25 Mg Tablet 25 Mg PO DAILY Pravastatin Sodium 40 Mg Tablet 40 Mg PO DAILY Miralax (Polyethylene Glycol 3350) 17 Gm Powd.pack 1 Pkt PO DAILY [fiber] Temazepam 30 Mg Capsule 30 Mg PO HS PRN Cozaar (Losartan Potassium) 100 Mg Tablet 100 Mg PO DAILY Vitals/I & O Vital Sign - Last 24 Hours 05/29/19 05/29/19 05/29/19/8/19 08:00 10:29 10:29 11:00 Temp 98.2 98.2 Pulse 66 66 72 Resp 16 B/P (MAP) 114/62 114/62 115/61 (79) Pulse Ox 92 O2 Delivery Room Air Room Air 05/29/19 05/29/19 05/29/19 05/29/19 15:00 19:46 20:00 22:11 Temp 97.6 98.0 97.6 97.6 98.0 97.6 Pulse 70 84 75 Resp 16 16 16 B/P (MAP) 99/54 (69) 124/59 (80) 142/63 (89) Pulse Ox 93 94 96 O2 Delivery Room Air Room Air Room Air Room Air 05/30/19 05/30/19 03:14 07:34 Temp 97.9 97.9 Pulse 64 Resp 20 B/P (MAP) 137/58 (84) Pulse Ox 94 O2 Delivery Room Air Room Air Intake and Output 05/29/19 05/29/19 05/30/19 14:59 22:59 06:59 Intake Total 2000 ml 900 ml Output Total 650 ml 800 ml Balance -650 ml 2000 ml 100 ml BLANCHE GARCIA MD May 30, 2019 07:41
[2019-05-30] MEDS ORDERED: POTASSIUM CHLORIDE 20 MEQ TABLET.ER. PO ONE (07:45)
[2019-05-30] MEDS: POTASSIUM CHLORIDE 10MEQ 100 ML IV SCH ×3 (08:10→10:49)
[2019-05-30] MEDS: PANTOPRAZOLE 40 MG TABLET.DR. PO SCH (08:33)
[2019-05-30] MEDS: ASPIRIN ENTERIC COATED 81 MG TABLET.DR. PO SCH (08:33)
[2019-05-30] MEDS: OMEGA-3 FATTY ACIDS/FISH OIL 1,000 MG CAPSULE. PO SCH (08:34)
[2019-05-30] MEDS: TICAGRELOR 90 MG TABLET. PO SCH (08:34)
[2019-05-30] MEDS: LOSARTAN POTASSIUM 50 MG TABLET. PO SCH (08:34)
[2019-05-30] MEDS: CHOLECALCIFEROL (VITAMIN D3) 5,000 UNIT CAPSULE PO SCH (08:34)
[2019-05-30] MEDS: amLODIPine BESYLATE 10 MG TABLET PO SCH (08:34)
[2019-05-30] MEDS: POLYETHYLENE GLYCOL 3350 17 GM PACKET. PO SCH (08:38)
[2019-05-30] MEDS ORDERED: PSYLLIUM HUSK (SUGAR FREE) 1 PKT PACKET PO SCH (09:00)
[2019-05-30] MEDS: ONDANSETRON PF 4 MG/2 ML VIAL. IV PRN (09:06)
--- NOTE | 2019-05-30 09:58 | PDOC ---
Subjective: Subjective: I saw her earlier this morning. No n/v - tolerating clears but does not want to advance diet yet. Maybe a little lower abd pain but better overall. Stooled twice yesterday - "they said one was a really good one." Objective: Vital Signs: Vital Signs Date Time Temp Pulse Resp B/P (MAP) Pulse Ox O2 Delivery O2 Flow Rate FiO2 05/30/19 08:39 80 126/59 05/30/19 07:34 Room Air 05/30/19 07:00 98.1 20 93 98.1 Labs: Laboratory Tests Test 05/30/19 04:00 White Blood Count 9.1 x10^3/uL Red Blood Count 3.72 x10^6/uL Hemoglobin 11.1 g/dL Hematocrit 34.0 % Mean Corpuscular Volume 91 fL Mean Corpuscular Hemoglobin 30 pg Mean Corpuscular Hemoglobin Concent 33 g/dL Red Cell Distribution Width 14.7 % Platelet Count 321 x10^3/uL Neutrophils (%) (Auto) 61 % Lymphocytes (%) (Auto) 28 % Monocytes (%) (Auto) 9 % Eosinophils (%) (Auto) 2 % Basophils (%) (Auto) 1 % Neutrophils # (Auto) 5.5 x10^3/uL Lymphocytes # (Auto) 2.5 x10^3/uL Monocytes # (Auto) 0.8 x10^3/uL Eosinophils # (Auto) 0.1 x10^3/uL Basophils # (Auto) 0.1 x10^3/uL Sodium Level 143 mmol/L Potassium Level 3.3 mmol/L Chloride Level 108 mmol/L Carbon Dioxide Level 27 mmol/L Anion Gap 8 Blood Urea Nitrogen 16 mg/dL Creatinine 1.0 mg/dL Estimated GFR (Cockcroft-Gault) 63.6 Glucose Level 93 mg/dL Calcium Level 8.6 mg/dL Magnesium Level 1.6 mg/dL PE: GEN: NAD, sitting up in bed LUNGS: room air HEART: RRR ABD: S/ND/NT NEURO/PSYCH: A & O �3, less animated today A/P: Vomiting - resolved, appetite still not great Lower abd pain - better Constipation - resolving Chronic anemia -- Continue PPI and Miralax (can adjust as needed), ADAT. Consider outpt 'scopes as in the past. TISHA PAUL 9, 2019 09:58
[2019-05-30] MEDS ORDERED: PANT40TA77 PO (10:23)
[2019-05-30] MEDS ORDERED: TICA90TA PO (10:23)
[2019-05-30] MEDS ORDERED: MAGNESIUM SULFATE 4GM 100 ML IV ONE (10:30)
[2019-05-30 11:00] VITALS: BP 133/64
[2019-05-30] MEDS ORDERED: PSYL3.4P PO (11:16)
--- NOTE | 2019-05-30 11:19 | SNU/HH DC ---
DISCHARGE WITH HOME HEALTH DISCHARGE INFORMATION: Discharge Date: May 30, 2019 Final Diagnosis: Problems Medical Problems: (1) Acute gastritis Status: Acute (2) Arthritis Status: Chronic (3) CAD (coronary artery disease) Status: Chronic (4) Chest pain Status: Acute (5) Cholelithiasis Status: Acute (6) HLD (hyperlipidemia) Status: Chronic (7) HTN (hypertension) Status: Chronic (8) Hypokalemia Status: Acute (9) Hypomagnesemia Status: Acute (10) PVD (peripheral vascular disease) Status: Chronic (11) Renal insufficiency Status: Acute Condition on Discharge: Stable CODE STATUS: Code Status: Full HOME HEALTH: Face to Face: I certify this patient is under my care and that I, or a nurse practitioner or physician's medical record assistant working with me, had a face to face encounter that meets the physician face to face encounter requirements with this patient on 05/30/19. Medical Complications: Other (CAD) RN For Eval/Treatment: Yes Physical Therapy For: Evalulation/Treatment Occupational Therapy For: Evaluation/Treatment Pt Meets Homebound Status: Extreme weakness w/ amb., Limited distance walking POST DISCHARGE ORDERS: Activity Instructions for Disc: Activity as tolerated DIET AFTER DISCHARGE: Cardiac Wound/Incision Care: No wound care needed CHECKS AFTER DISCHARGE: Checks after discharge: Check blood press - daily CERTIFICATION STATEMENT: Certification Statement: Certification Statement: Based on the above finding, I certify that this patient is confined to the home and needs intermittent care home care, physical therapy and/or speech therapy, or continues to need occupational therapy.~ This patient is under my care, and I have initiated the establishment of the plan of care.~ This patient will be followed by myself or a community physician who will periodically review the plan of care. Home Meds Active Scripts Psyllium Husk/Aspartame (METAMUCIL FIBER SINGLES PACKET) 3.4 Gm Powd.pack, 1 PKT PO DAILY for Constipation for 30 Days, #30 PKT Prov:BLANCHE GARCIA MD 05/30/19 Pantoprazole Sodium (PANTOPRAZOLE SODIUM ) 40 Mg Tablet.dr, 40 MG PO DAILYAC for GERD for 30 Days, #30 TAB.SR Prov:BLANCHE GARCIA MD 05/30/19 Ticagrelor (BRILINTA) 90 Mg Tablet, 90 MG PO BID for CAD for 30 Days, #60 TAB Prov:BLANCHE GARCIA MD 05/30/19 Reported Medications Amlodipine Besylate (AMLODIPINE BESYLATE) 10 Mg Tablet, 10 MG PO DAILY, TAB 09/23/16 Tramadol Hcl (TRAMADOL HCL) 50 Mg Tablet, 50 MG PO Q4H PRN for PAIN, TAB 04/07/14 [place]-3 Fatty Acids/Fish Oil (FISH OIL 1,000 MG CAPSULE) 1 Each Capsule, 1 EACH PO 04/07/14 Cholecalciferol (Vitamin D3) (VITAMIN D3) 5,000 Unit Capsule, 5000 UNIT PO 04/07/14 Acetaminophen (ACETAMINOPHEN) 500 Mg Tablet, 500 MG PO 04/07/14 Aspirin (ASPIR 81) 81 Mg Tablet.dr, 81 MG PO, TAB 04/07/14 Hydrochlorothiazide (HYDROCHLOROTHIAZIDE TABLET ) 25 Mg Tablet, 25 MG PO DAILY for DIURETIC, TAB 0 Refills 04/07/14 Pravastatin Sodium (PRAVASTATIN SODIUM) 40 Mg Tablet, 40 MG PO DAILY, TAB 04/07/14 Polyethylene Glycol 3350 (MIRALAX) 17 Gm Powd.pack, 1 PKT PO DAILY, PKT 04/07/14 [fiber] No Conflict Check 04/07/14 Temazepam (TEMAZEPAM) 30 Mg Capsule, 30 MG PO HS PRN for INSOMNIA, CAP 04/07/14 Losartan Potassium (COZAAR) 100 Mg Tablet, 100 MG PO DAILY, TAB 04/07/14 Discontinued Reported Medications Furosemide (FUROSEMIDE) 40 Mg Tablet, 40 MG PO BID for CHF, TAB 03/06/19 Discontinued Scripts Cephalexin (CEPHALEXIN) 500 Mg Capsule, 1 CAP PO BID, #20 CAP Prov:WANDA PIZARRO APRN 05/25/19 BLANCHE GARCIA MD May 30, 2019 11:18
--- NOTE | 2019-05-30 11:20 | PDOC3 ---
Discharge Summary Visit Information Date of Admission: May 28, 2019 Date of Discharge: May 30, 2019 Admitting Diagnosis: Intractable nausea and vomiting Final Diagnosis Problems Medical Problems: (1) Acute gastritis Status: Acute (2) Arthritis Status: Chronic (3) CAD (coronary artery disease) Status: Chronic (4) Chest pain Status: Acute (5) Cholelithiasis Status: Acute (6) HLD (hyperlipidemia) Status: Chronic (7) HTN (hypertension) Status: Chronic (8) Hypokalemia Status: Acute (9) Hypomagnesemia Status: Acute (10) PVD (peripheral vascular disease) Status: Chronic (11) Renal insufficiency Status: Acute Brief Hospital Course Allergies Allergies Coded Allergies Type Severity Reaction Last Updated Verified Sulfa (Sulfonamide Antibiotics) Allergy Severe TONGUE SWELLING 04/07/14 Yes Vital Signs Vital Signs Date Time Temp Pulse Resp B/P (MAP) Pulse Ox O2 Delivery O2 Flow Rate FiO2 05/30/19 08:39 80 126/59 05/30/19 07:34 Room Air 05/30/19 07:00 98.1 20 93 98.1 Lab Results Laboratory Tests Test 05/28/19 20:28 05/28/19 20:42 05/28/19 22:05 05/29/19 00:25 Prothrombin Time 11.8 SEC (11.7-14.0) Prothromb Time International Ratio 0.9 (0.8-1.1) Sodium Level 138 mmol/L (136-145) Potassium Level 3.4 mmol/L (3.5-5.1) Chloride Level 96 mmol/L (98-107) Carbon Dioxide Level 28 mmol/L (21-32) Anion Gap 14 (6-14) Blood Urea Nitrogen 23 mg/dL (7-20) Creatinine 1.2 mg/dL (0.6-1.0) Estimated GFR (Cockcroft-Gault) 51.5 BUN/Creatinine Ratio 19 (6-20) Glucose Level 140 mg/dL (70-99) Lactic Acid Level 1.4 mmol/L (0.4-2.0) Calcium Level 10.3 mg/dL (8.5-10.1) Magnesium Level 1.6 mg/dL (1.8-2.4) Total Bilirubin 0.2 mg/dL (0.2-1.0) Aspartate Amino Transf (AST/SGOT) 23 U/L (15-37) Alanine Aminotransferase (ALT/SGPT) 17 U/L (14-59) Alkaline Phosphatase 123 U/L (46-116) Creatine Kinase 289 U/L (26-192) Troponin I Quantitative < 0.017 ng/mL (0.000-0.055) 0.033 ng/mL (0.000-0.055) CB-Yei-F-Type Natriuretic Peptide 1277 pg/mL (0-449) Total Protein 8.8 g/dL (6.4-8.2) Albumin 4.2 g/dL (3.4-5.0) Albumin/Globulin Ratio 0.9 (1.0-1.7) Lipase 33 U/L (73-393) Urine Collection Type Unknown Urine Color Yellow Urine Clarity Clear Urine pH 7.0 Urine Specific [place] 1.010 Urine Protein 100 mg/dL (NEG-TRACE) Urine Glucose (UA) Negative mg/dL (NEG) Urine Ketones (Stick) Negative mg/dL (NEG) Urine Blood Trace (NEG) Urine Nitrite Negative (NEG) Urine Bilirubin Negative (NEG) Urine Urobilinogen Dipstick 0.2 mg/dL (0.2 mg/dL) Urine Leukocyte Esterase Negative (NEG) Urine RBC 3-5 /HPF (0-2) Urine WBC 0 /HPF (0-4) Urine Bacteria 0 /HPF (0-FEW) White Blood Count 10.5 x10^3/uL (4.0-11.0) Red Blood Count 4.31 x10^6/uL (3.50-5.40) Hemoglobin 13.1 g/dL (12.0-15.5) Hematocrit 38.9 % (36.0-47.0) Mean Corpuscular Volume 90 fL (79-100) Mean Corpuscular Hemoglobin 30 pg (25-35) Mean Corpuscular Hemoglobin Concent 34 g/dL (31-37) Red Cell Distribution Width 15.0 % (11.5-14.5) Platelet Count 355 x10^3/uL (140-400) Neutrophils (%) (Auto) 79 % (31-73) Lymphocytes (%) (Auto) 15 % (24-48) Monocytes (%) (Auto) 5 % (0-9) Eosinophils (%) (Auto) 0 % (0-3) Basophils (%) (Auto) 1 % (0-3) Neutrophils # (Auto) 8.3 x10^3/uL (1.8-7.7) Lymphocytes # (Auto) 1.6 x10^3/uL (1.0-4.8) Monocytes # (Auto) 0.5 x10^3/uL (0.0-1.1) Eosinophils # (Auto) 0.0 x10^3/uL (0.0-0.7) Basophils # (Auto) 0.1 x10^3/uL (0.0-0.2) Test 05/29/19 03:45 05/30/19 04:00 Sodium Level 142 mmol/L (136-145) 143 mmol/L (136-145) Potassium Level 3.7 mmol/L (3.5-5.1) 3.3 mmol/L (3.5-5.1) Chloride Level 103 mmol/L (98-107) 108 mmol/L (98-107) Carbon Dioxide Level 29 mmol/L (21-32) 27 mmol/L (21-32) Anion Gap 10 (6-14) 8 (6-14) Blood Urea Nitrogen 23 mg/dL (7-20) 16 mg/dL (7-20) Creatinine 1.3 mg/dL (0.6-1.0) 1.0 mg/dL (0.6-1.0) Estimated GFR (Cockcroft-Gault) 47.0 63.6 Glucose Level 117 mg/dL (70-99) 93 mg/dL (70-99) Calcium Level 8.8 mg/dL (8.5-10.1) 8.6 mg/dL (8.5-10.1) Magnesium Level 1.9 mg/dL (1.8-2.4) 1.6 mg/dL (1.8-2.4) Troponin I Quantitative 0.031 ng/mL (0.000-0.055) White Blood Count 9.1 x10^3/uL (4.0-11.0) Red Blood Count 3.72 x10^6/uL (3.50-5.40) Hemoglobin 11.1 g/dL (12.0-15.5) Hematocrit 34.0 % (36.0-47.0) Mean Corpuscular Volume 91 fL (79-100) Mean Corpuscular Hemoglobin 30 pg (25-35) Mean Corpuscular Hemoglobin Concent 33 g/dL (31-37) Red Cell Distribution Width 14.7 % (11.5-14.5) Platelet Count 321 x10^3/uL (140-400) Neutrophils (%) (Auto) 61 % (31-73) Lymphocytes (%) (Auto) 28 % (24-48) Monocytes (%) (Auto) 9 % (0-9) Eosinophils (%) (Auto) 2 % (0-3) Basophils (%) (Auto) 1 % (0-3) Neutrophils # (Auto) 5.5 x10^3/uL (1.8-7.7) Lymphocytes # (Auto) 2.5 x10^3/uL (1.0-4.8) Monocytes # (Auto) 0.8 x10^3/uL (0.0-1.1) Eosinophils # (Auto) 0.1 x10^3/uL (0.0-0.7) Basophils # (Auto) 0.1 x10^3/uL (0.0-0.2) Laboratory Tests Test 05/30/19 04:00 White Blood Count 9.1 x10^3/uL (4.0-11.0) Red Blood Count 3.72 x10^6/uL (3.50-5.40) Hemoglobin 11.1 g/dL (12.0-15.5) Hematocrit 34.0 % (36.0-47.0) Mean Corpuscular Volume 91 fL (79-100) Mean Corpuscular Hemoglobin 30 pg (25-35) Mean Corpuscular Hemoglobin Concent 33 g/dL (31-37) Red Cell Distribution Width 14.7 % (11.5-14.5) Platelet Count 321 x10^3/uL (140-400) Neutrophils (%) (Auto) 61 % (31-73) Lymphocytes (%) (Auto) 28 % (24-48) Monocytes (%) (Auto) 9 % (0-9) Eosinophils (%) (Auto) 2 % (0-3) Basophils (%) (Auto) 1 % (0-3) Neutrophils # (Auto) 5.5 x10^3/uL (1.8-7.7) Lymphocytes # (Auto) 2.5 x10^3/uL (1.0-4.8) Monocytes # (Auto) 0.8 x10^3/uL (0.0-1.1) Eosinophils # (Auto) 0.1 x10^3/uL (0.0-0.7) Basophils # (Auto) 0.1 x10^3/uL (0.0-0.2) Sodium Level 143 mmol/L (136-145) Potassium Level 3.3 mmol/L (3.5-5.1) Chloride Level 108 mmol/L (98-107) Carbon Dioxide Level 27 mmol/L (21-32) Anion Gap 8 (6-14) Blood Urea Nitrogen 16 mg/dL (7-20) Creatinine 1.0 mg/dL (0.6-1.0) Estimated GFR (Cockcroft-Gault) 63.6 Glucose Level 93 mg/dL (70-99) Calcium Level 8.6 mg/dL (8.5-10.1) Magnesium Level 1.6 mg/dL (1.8-2.4) Brief Hospital Course Ms Soares is an 84yo F w/ PMHx HTN, HLD, PAD, SBO, ?DVT, uterine fibroids, TIA, OA, diverticulosis, AAA who presented with nausea, vomiting, chest pain and abdominal pain after eating at [employer]. Had 2 large BM yesterday. No n/v - tolerating clears but does not want to advance diet yet. Unfortunately her stay was complicated by weakness secondary to hypomagnesemia and hypokalemia, requiring IV replacement. She was seen by gastroenterology and cardiology, cleared as negative for STEMI, was very constipated with gastroenteritis as well. CP Nausea CAD Arthritis Hypertension Hyperlipidemia Peripheral Vascular Disease Blood clots Bowel obstruction Fem-pop Bypass Left Carotid Surgery Arterial Vascular Surgery Cardiac stents Greater than 30 minutes spent on d/c Discharge Information Condition at Discharge: Improved Follow Up: Weeks Disposition/Orders: D/C to Home w/ HH Scheduled Amlodipine Besylate (Amlodipine Besylate) 10 Mg Tablet, 10 MG PO DAILY, (Reported) Entered as Reported by: Constance Blakely on 09/23/161755 Last Action: Continued on 05/29/195 by CHRIS PARISI Hydrochlorothiazide (Hydrochlorothiazide Tablet ) 25 Mg Tablet, 25 MG PO DAILY for DIURETIC, Ref 0 (Reported) Entered as Reported by: JORGE BROWN on 04/07/142255 Last Action: Continued on 05/29/195 by CHRIS PARISI Losartan Potassium (Cozaar) 100 Mg Tablet, 100 MG PO DAILY, (Reported) Entered as Reported by: JORGE BROWN on 04/07/142251 Last Action: Converted on 05/29/195 by CHRIS PARISI Pantoprazole Sodium (Pantoprazole Sodium ) 40 Mg Tablet.dr, 40 MG PO DAILYAC for GERD for 30 Days, #30 Prescribed by: BLANCHE GARCIA MD on 05/30/19 1023 Polyethylene Glycol 3350 (Miralax) 17 Gm Powd.pack, 1 PKT PO DAILY, (Reported) Entered as Reported by: JORGE BROWN on 04/07/142255 Last Action: Continued on 05/29/195 by CHRIS PARISI Pravastatin Sodium (Pravastatin Sodium) 40 Mg Tablet, 40 MG PO DAILY, (Reported) Entered as Reported by: JORGE BROWN on 04/07/142255 Last Action: Converted on 05/29/195 by CHRIS PARISI Psyllium Husk/Aspartame (Metamucil Fiber Singles Packet) 3.4 Gm Powd.pack, 1 PKT PO DAILY for Constipation for 30 Days, #30 Prescribed by: BLANCHE GARCIA MD on 05/30/19 1116 Ticagrelor (Brilinta) 90 Mg Tablet, 90 MG PO BID for CAD for 30 Days, #60 Prescribed by: BLANCHE GARCIA MD on 05/30/19 1023 Scheduled PRN Temazepam (Temazepam) 30 Mg Capsule, 30 MG PO HS PRN for INSOMNIA, (Reported) Entered as Reported by: JORGE BROWN on 04/07/142251 Last Action: Continued on 05/29/195 by CHRIS PARISI Tramadol Hcl (Tramadol Hcl) 50 Mg Tablet, 50 MG PO Q4H PRN for PAIN, (Reported) Entered as Reported by: JORGE BROWN on 04/07/142255 Last Action: Continued on 05/29/195 by CHRIS PARISI Miscellaneous Medications Acetaminophen (Acetaminophen) 500 Mg Tablet, 500 MG PO, (Reported) Entered as Reported by: JORGE BROWN on 04/07/142255 Last Action: Continued on 05/29/195 by CHRIS PARISI Aspirin (Aspir 81) 81 Mg Tablet.dr, 81 MG PO, (Reported) Entered as Reported by: JORGE BROWN on 04/07/142255 Last Action: Continued on 05/29/195 by CHRIS PARISI Cholecalciferol (Vitamin D3) (Vitamin D3) 5,000 Unit Capsule, 5,000 UNIT PO, (Reported) Entered as Reported by: JORGE BROWN on 04/07/142255 Last Action: Continued on 05/29/195 by CHRIS PARISI [place]-3 Fatty Acids/Fish Oil (Fish Oil 1,000 Mg Capsule) 1 Each Capsule, 1 EACH PO, (Reported) Entered as Reported by: JORGE BROWN on 04/07/142255 Last Action: Continued on 05/29/195 by CHRIS PARISI [fiber] , (Reported) Entered as Reported by: JORGE BROWN on 04/07/142255 Last Action: Converted on 05/29/195 by CHRIS PARISI Discontinued Medications Cephalexin (Cephalexin) 500 Mg Capsule, 1 CAP PO BID, #20 Prescribed by: WANDA PIZARRO APRN on 05/25/191817 Last Action: Converted on 05/29/195 by CHRIS PARISI Furosemide (Furosemide) 40 Mg Tablet, 40 MG PO BID for CHF, (Reported) Entered as Reported by: MARYSOL OLIVERA on 03/06/19 170 Last Action: Discontinued on 05/28/192337 by BLANCHE REID MD May 30, 2019 11:20
[2019-05-30 15:00] VITALS: BP 146/55
== END 2019-05-30 18:20 | disposition home health service (06) | DRG 391 ==
LOC: ER 19:24 → 2 NORTH 21:34
PROVIDERS: ADMIT Internal Medicine; ATTEND Internal Medicine
DX: K29.00 Acute gastritis without bleeding (principal); N17.0 Acute kidney failure with tubular necrosis; I13.0 Hypertensive heart and chronic kidney disease with heart failure and stage 1 through stage 4 chronic kidney disease, or unspecified chronic kidney disease; I50.32 Chronic diastolic (congestive) heart failure; K56.609 Unspecified intestinal obstruction, unspecified as to partial versus complete obstruction; K52.9 Noninfective gastroenteritis and colitis, unspecified; K80.20 Calculus of gallbladder without cholecystitis without obstruction; D25.9 Leiomyoma of uterus, unspecified; D64.9 Anemia, unspecified; E78.5 Hyperlipidemia, unspecified; E83.42 Hypomagnesemia; E87.6 Hypokalemia; I25.10 Atherosclerotic heart disease of native coronary artery without angina pectoris; I25.2 Old myocardial infarction; I45.10 Unspecified right bundle-branch block; I73.9 Peripheral vascular disease, unspecified; J44.9 Chronic obstructive pulmonary disease, unspecified; K57.90 Diverticulosis of intestine, part unspecified, without perforation or abscess without bleeding; M19.90 Unspecified osteoarthritis, unspecified site; N18.3 Chronic kidney disease, stage 3 (moderate); Z82.49 Family history of ischemic heart disease and other diseases of the circulatory system; Z86.73 Personal history of transient ischemic attack (TIA), and cerebral infarction without residual deficits; Z95.5 Presence of coronary angioplasty implant and graft; Z86.74 Personal history of sudden cardiac arrest
CPT/HCPCS: 36415; 71045; 74176; 80048; 80053; 81001; 82550; 82607; 83540; 83550; 83605; 83690; 83735; 83880; 84484; 85025; 85610; 87040; 87086; 87186; 93005; 96365; 96375; J2405; J3010; J3475; J3480; J7030; 97110; 97116; 99291-25; G0378

== ENCOUNTER → 2020-01-16 | Outpatient (CLI) | payer MEDICARE, OTHER ==
[2019-12-30 11:00] VITALS: BP 171/75
[~2020-01-16] MED LIST changes: +BIOT10004 PO; +CHOL40003 PO; +CYAN100072 PO; +DICL100G18 TP; -FELO10TA PO; +FELO10TA4 PO; +OXYB5TAB33 PO; +PANT40TA77 PO; +PSYL3.4P PO; +TICA90TA PO
== END ==
LOC: SPEC 10:16
PROVIDERS: ATTEND Nurse Practitioner Family
DX: N39.0 Urinary tract infection, site not specified (principal)
CPT/HCPCS: 87086

== ENCOUNTER → 2020-05-28 | Outpatient (CLI) | payer MEDICARE, OTHER ==
[2019-12-30 11:00] VITALS: BP 171/75
[~2020-05-28] MED LIST changes: -DICL100G18 TP; +DICL100G54 TP
--- NOTE | 2020-05-28 14:19 | CARD ---
MR#: [id number] Date of Study: 05/28/2020 Ordering Physician: SEGUNDO BRAXTON, Referring Physician: SEGUNDO BRAXTON, Antoine: Stu GILLIAM APPROVED REPORT EXAM: Two-dimensional and M-mode echocardiogram with Doppler and color Doppler. Other Information Quality : AverageHR: 66bpm Rhythm : NSR INDICATION CAD RISK FACTORS Hypertension Obesity Hyperlipidemia 2D DIMENSIONS RVDd3.5 (2.9-3.5cm)Left Atrium(2D)3.3 (1.6-4.0cm) IVSd1.4 (0.7-1.1cm)Aortic Root(2D)2.7 (2.0-3.7cm) LVDd3.1 (3.9-5.9cm)LVOT Diameter2.0 (1.8-2.4cm) PWd1.7 (0.7-1.1cm)LVDs2.0 (2.5-4.0cm) FS (%) 35.7 %SV26.3 ml LVEF(%)66.7 (>50%) Aortic Valve AoV Peak Jj.103.8cm/sAoV VTI22.2cm AO Peak GR.4.3mmHgLVOT Peak Jj.91.6cm/s AO Mean GR.2mmHgAVA (VMAX)2.72cm2 Mitral Valve MV E Ooiuqlsf45.3cm/sMV DECEL [id number] MV A Wfkjpvad479.7cm/sE/A Ratio0.6 Pulmonary Valve PV Peak Xhrpomsp80.3cm/s Pulmonary Vein S1 Awpkyeed22.6cm/sD2 Edmoxggl05.9cm/s PVa [id number] LEFT VENTRICLE The left ventricle is normal size. There is moderate concentric left ventricular hypertrophy. The lef t ventricular systolic function is normal. The ejection fraction is 60-65%. There is normal LV segmen edgar wall motion. Transmitral Doppler flow pattern is Grade I-abnormal relaxation pattern. RIGHT VENTRICLE The right ventricle is normal size. The right ventricle is borderline hypertrophied. The right ventri cular systolic function is normal. ATRIA The left atrium size is normal. The right atrium size is normal. The interatrial septum is intact wit h no evidence for an atrial septal defect or patent foramen ovale as noted on 2-D or Doppler imaging. AORTIC VALVE The aortic valve is normal in structure and function. Doppler and Color Flow revealed no significant aortic regurgitation. There is no significant aortic valvular stenosis. MITRAL VALVE The mitral valve is normal in structure and function. There is no mitral valve stenosis. Doppler and Color-flow revealed mild mitral regurgitation. TRICUSPID VALVE The tricuspid valve is normal in structure and function. Doppler and Color Flow revealed no tricuspid valve regurgitation noted. PULMONIC VALVE The pulmonary valve is normal in structure and function. Doppler and Color Flow revealed trivial pulm onic valvular regurgitation. GREAT VESSELS The aortic root is normal in size. The ascending aorta is normal in size. The IVC is normal in size a nd collapses >50% with inspiration. PERICARDIAL EFFUSION There is no evidence of significant pericardial effusion. Critical Notification Critical Value: No <Conclusion> The left ventricular systolic function is normal. The ejection fraction is 60-65%. There is normal LV segmental wall motion. Transmitral Doppler flow pattern is Grade I-abnormal relaxation pattern. Mild mitral regurgitation. There is no evidence of significant pericardial effusion. Signed by : Indra Hall, Electronically Approved : 05/28/2020 14:18:28
== END ==
LOC: ECHO 12:48
PROVIDERS: ATTEND Internal Medicine Cardiovascular Disease
DX: I08.8 Other rheumatic multiple valve diseases (principal); I25.10 Atherosclerotic heart disease of native coronary artery without angina pectoris; I11.9 Hypertensive heart disease without heart failure
CPT/HCPCS: 93306

== ENCOUNTER → 2020-06-08 | Outpatient (CLI) | payer MEDICARE, OTHER ==
[2019-12-30 11:00] VITALS: BP 171/75
--- NOTE | 2020-06-08 16:18 | RAD ---
MR#: [id number] Date of Study: 06/08/2020 Ordering Physician: SEGUNDO BRAXTON, Referring Physician: SEGUNDO BRAXTON, Tech: Alex Husain MBA, RDMS, RVT, RDCS, RTR APPROVED REPORT Patient Location: OUT-PATIENT Indications Rest Pain:Bilaterally VELOCITY AND DOPPLER WAVEFORM ANALYSIS RIGHT cm/secWaveformSeverity LEFT cm/secWaveform Severity dCFA 249.0MonophasicdCFA 233.0Biphasic Prof Fem Art. 103.0MonophasicProf Fem Art. 119.0Biphasic Fem Art Prox. OccludedFem Art Prox. Occluded Fem Art Mid. OccludedFem Art Mid. Occluded Fem Art Dist. OccludedFem Art Dist. Occluded Pop Art(Fossa) 55.0MonophasicPop Art(AK) 79.0Monophasic [employer] Prox. 55.0MonophasicPTA Prox. 51.0Monophasic [employer] Dist. 48.0MonophasicPTA Dist. 32.0Monophasic Per Art Mid. 22.0MonophasicPer Art Mid. 33.0Monophasic SIN Prox. 41.0MonophasicATA Prox. 167.0Biphasic DPA 18MonophasicDPA 104Biphasic BYPASS GRAFT ANALYSIS RIGHT cm/secWaveform SeverityLEFT cm/secWaveformSeverity Prox. Anastomosis Prox. Anastomosis 248.0Biphasic Mid Mid 110.0Biphasic Distal Distal 79.0Biphasic Dist. Anastomosis Dist. Anastomosis 107.0Biphasic Findings Grayscale images of the bilateral lower extremity arterial vessels are notable for moderate bilateral plaque. The bilateral superficial femoral arteries appear to be occluded. The common femoral artery velocities bilaterally are mildly elevated and likely secondary to the prio r graft anastomosis site. There are monophasic waveforms below the knee on the right side with paten t popliteal, posterior tibial and anterior tibial vessels. The peroneal artery and dorsalis pedis ar jason have diminished waveforms with low velocities. On the left side the SFA to distal anterior tibial artery bypass appears to be patent. There are mon ophasic waveforms with three-vessel runoff and likely mild disease involving the anterior tibial kory ry Critical Notification Critical Value: No <Conclusion> 1. Severe bilateral lower extremity arterial disease as described above with patent left SFA to ante rior tibial artery bypass. Signed by : Segundo Braxton, Electronically Approved : 06/08/2020 16:18:35
--- NOTE | 2020-06-08 16:24 | RAD ---
MR#: [id number] Date of Study: 06/08/2020 Ordering Physician: SEGUNDO BRAXTON, Referring Physician: SEGUNDO BRAXTON, Tech: Alex Husain MBA, RDMS, RVT, RDCS, RTR APPROVED REPORT Patient Location: OUT-PATIENT Laterality:Bilateral Indications Bruit Doppler Spectral Velocity Analysis Right Left pCCA 46/8 cm/spCCA 89/15 cm/s mCCA 55/5 cm/smCCA 109/15 cm/s dCCA 161/15 cm/sdCCA 205/24 cm/s Bulb 187/13 cm/sBulb 181/15 cm/s ECA 231/ cm/sECA 435/ cm/s pICA 224/31 cm/spICA 222/33 cm/s Migue 154/25 cm/smICA 172/33 cm/s dICA 111/20 cm/sdICA 153/24 cm/s Vert. 44/ cm/sVert. 62/ cm/s Subcl. 101/ cm/sSubcl. 233/ cm/s ICA/CCA 1.39ICA/CCA 2.49 Findings Grayscale images of the bilateral common carotid, external and internal carotid vessels as well as th e carotid bulbs demonstrates moderate diffuse plaque. There is heavy calcification involving the jessica ateral carotid bulbs. Based on velocity criteria there is a moderate 50 to 69% stenosis involving th e bilateral internal carotid arteries. Likely greater than 70% stenosis involving the bilateral exte rnal carotid arteries. Vertebral velocities are antegrade. ICA to CCA ratios are elevated at approx imately 4.1 on the right and 2.0 on the left. Critical Notification Critical Value: No <Conclusion> 1. Positive for bilateral moderate internal carotid arterial disease. Signed by : Segundo Braxton, Electronically Approved : 06/08/2020 16:24:23
--- NOTE | 2020-06-08 16:26 | RAD ---
MR#: [id number] Date of Study: 06/08/2020 Ordering Physician: SEGUNDO BRAXTON, Referring Physician: SEGUNDO BRAXTON, Tech: Alex Husain MBA, RDMS, RVT, RDCS, RTR APPROVED REPORT Patient Location: OUT-PATIENT Indications Rest Pain:Bilaterally Findings Right-sided NILAY could not be obtained due to noncompressible right ankle vessels. Left arm blood pressure was elevated at 184, right arm and 143. No significant subclavian disease no reginald on prior carotid study. Normal NILAY on the left side of 1.1. Nondiagnostic NILAY of the right side. Critical Notification Critical Value: No <Conclusion> 1. Normal left-sided NILAY, nondiagnostic on the right Signed by : Segundo Braxton, Electronically Approved : 06/08/2020 16:26:02
== END | disposition home or self-care (01) ==
LOC: US 12:51
PROVIDERS: ATTEND Internal Medicine Cardiovascular Disease
DX: I65.23 Occlusion and stenosis of bilateral carotid arteries (principal); R09.89 Other specified symptoms and signs involving the circulatory and respiratory systems
CPT/HCPCS: 93880; 93922; 93925